=== PATIENT | male | born 1945 | race Caucasian/White ===

== ENCOUNTER 2017-02-08 10:48 | Emergency (ER) | payer MEDICARE, OTHER ==
[~2017-02-08] VITALS: Ht 188 cm; Wt 92.5 kg
[~2017-02-08 10:48] MED LIST: ASP325TEC PO; OMG1KC PO; PNT40TEC PO; SIMV20TA3 PO
--- NOTE | 2017-02-08 11:14 | ED Cough/URI ---
General Chief Complaint: Cough/Cold/Flu Symptoms Stated Complaint: CONGESTION,COUGH Source: patient, family (son) Exam Limitations: no limitations History of Present Illness Time seen by provider: 11:07 Initial Comments Patient presents to ER by private conveyance with a chief complaint that he has for the past 5 days been having a cough that is productive sometimes of phlegm as well as malaise, body aches, nasal congestion, headache and progressively getting worse feeling. He has not had a flu shot this year although he has had his pneumococcal shot. No significant sick contacts or travel outside the [facility]. He has been using Tylenol and NyQuil and DayQuil that helps only mildly with his cough. He had Tylenol this morning in his DayQuil capsule. Allergies and Home Medications Allergies Coded Allergies: Influenza Virus Vaccine (Verified Allergy, Unknown, 05/23/09) Uncoded Allergies: FLU SHOT (Allergy, Mild, 05/22/09) Home Medications Aspirin 325 Mg Tabec, 325 MG PO DAILY, (Reported) Pantoprazole Sod 40 Mg Tab, 40 MG PO DAILY, (Reported) Constitutional: chills, No diaphoresis, malaise EENTM: No ear discharge, No ear pain Respiratory: see HPI, cough, phlegm, No short of breath, No wheezing Cardiovascular: chest pain (when he coughs a lot), No palpitations, No syncope , No vascular heart diseas Gastrointestinal: No abdominal pain, No constipation, No diarrhea, No nausea Genitourinary: No discharge, No dysuria Skin: No pruritus, No rash Psychiatric/Neurological: Headache Past [id number]-Fufrgj-Fzdbfa Hx Patient Social History Alcohol Use: Denies Use Recreational Drug Use: No Type Used: Cigarettes (0.5) Recent Foreign Travel: No Contact w/Someone Who Travel: No Reproductive System Hx Reproductive Disorders: No Physical Exam Vital Signs Vital Sign - Last 12Hours 02/08/17 02/08/17 11:02 11:21 Temp 98.9 Pulse 87 B/P (MAP) 132/92 (105) Pulse Ox 94 O2 Delivery Room Air Capillary Refill : General Appearance: WD/WN, mild distress Eyes: Bilateral Eye Normal Inspection, Bilateral Eye PERRL, Bilateral Eye EOMI HEENT: PERRL/EOMI, normal ENT inspection, TMs normal, pharyngeal erythema, No tonsillar exudate Neck: non-tender, supple, normal inspection Respiratory: chest non-tender, no respiratory distress, no accessory muscle use , decreased breath sounds (left side more than right) Cardiovascular: normal peripheral pulses, regular rate, rhythm, no edema Gastrointestinal: non tender, soft Neurologic/Psychiatric: alert, oriented x 3 Skin: normal color, warm/dry Progress/Results/Core Measures Suspected Sepsis SIRS Temperature: Pulse: Respiratory Rate: Blood Pressure / Mean: Results/Orders Lab Results Laboratory Tests Test 02/08/17 11:12 Range/Units Group A Streptococcus Screen NEGATIVE NEGATIVE Micro Results Microbiology 02/08/17 Influenza Types A,B Antigen ([place]) - Final, Complete My Orders Orders - PATT RODRIGUEZ Rapid Strep A Screen (02/08/17 11:09) Influenza A And B Antigens (02/08/17 11:09) Chest Pa/Lat (2 View) (02/08/17 11:09) Albuterol/Ipra Inhalation Soln (Duoneb I (02/08/17 11:15) Svn Sm Volume Nebulizer Rt-Rfs (02/08/17 11:09) Ibuprofen Tablet (Motrin Tablet) (02/08/17 11:15) Medications Given in ED Current Medications Medications Dose Ordered Sig/Estefanía Route Start Time Stop Time Status Last Admin Dose Admin Albuterol/ Ipratropium 3 ml ONCE ONCE INH 02/08/17 11:15 02/08/17 11:16 DC 02/08/17 11:21 3 ML Ibuprofen 800 mg ONCE ONCE PO 02/08/17 11:15 02/08/17 11:16 DC 02/08/17 11:17 800 MG Vital Signs/I&O Vital Sign - Last 12Hours 02/08/17 02/08/17 11:02 11:21 Temp 98.9 Pulse 87 B/P (MAP) 132/92 (105) Pulse Ox 94 93 O2 Delivery Room Air Capillary Refill : Progress Note : Time: 11:40 Progress Note Lungs sounds are still clear after the breathing treatment however the patient says he felt like it broke him open and he feels much better. Flu be positive. Outside the window for Tamiflu being useful. Diagnostic Imaging Diagonstic Imaging: Xray Plain Films/CT/US/NM/MRI: chest (2v) Reviewed: Reviewed by Me Departure Impression Impression: Primary Impression: Influenza Disposition: 01 HOME, SELF-CARE Condition: Stable Departure-Patient Inst. Decision time for Depature: 11:47 Referrals: NO,LOCAL PHYSICIAN (PCP/Family) Primary Care Physician Patient Instructions: Flu, Adult (DC) Add. Discharge Instructions: Drink plenty of fluids and use vaporizers, vapor rubs, and humidifiers. Get some rest. If you're having fevers and you do wear a mask when in public or try and stay home so as not to spread the flu. Wash your hands and use hand dental hygiene administrative assistant. Use Tylenol 1000 g every 8 hours and/or ibuprofen 800 mg every 8 hours for the body aches, fevers, chills. If you're having coughing and cannot sleep you may take one half to one tablet of hydrocodone every 6 hours as needed to stop the cough. Hydrocodone can lead to constipation and drowsiness so be careful when using that. You may also citrus picker the prescription for cough syrup and follow instructions. If you're not improving by 3 weeks you should follow up with your primary care physician. All discharge instructions reviewed with patient and/or family. Voiced understanding. Scripts Guaifenesin/Codeine Phosphate (Codeine-Guaifen 10-100 mg/5 ml) 120 Ml Liquid 10 ML PO Q6H Y for COUGH, #120 ML 0 Refills Prov: PATT RODRIGUEZ 02/08/17 Work/School Note: Work Release Form Date Seen in the Emergency Department: Feb 08, 2017 Return to Work: Feb 17, 2017 Restrictions: Return-No Fever (24hrs) PATT RODRIGUEZ Feb 08, 2017 11:14
[2017-02-08] MEDS ORDERED: IBUPROFEN 800 MG (MOTRIN) TAB PO ONE (11:15)
[2017-02-08] MEDS ORDERED: RT-ALBUTEROL/IPRATROPIUM 3 ML (DUONEB) VIAL INH ONE (11:15)
--- NOTE | 2017-02-08 11:42 | Diagnostic Imaging Report ---
INDICATION: Cough and congestion. COMPARISON: 10/02/2010. FINDINGS: No dense consolidation to confirm pneumonia. No pleural effusion or pneumothorax. Normal heart size. Tortuous thoracic aorta is unchanged which accounts for the opacities over the spine in the retrocardiac position on the lateral radiograph. IMPRESSION: No acute cardiopulmonary process. Dictated by: Dictated on workstation # [id number]
[2017-02-08] MEDS ORDERED: GUAI120L56 PO (11:49)
[2017-02-08] MEDS ORDERED: RX-HYDROCODONE/APAP 5/325 MG #4 TAB PK PO PRN (12:00)
[2017-02-08 12:02] VITALS: BP 105/79
== END 2017-02-08 12:02 | disposition home or self-care (01) ==
LOC: EDUNIT# 10:48 → ER 10:52
DX: J11.1 Influenza due to unidentified influenza virus with other respiratory manifestations (principal); Z79.82 Long term (current) use of aspirin
CPT/HCPCS: 71020; 87430; 87804; 94640; 99283

== ENCOUNTER 2017-03-08 13:29 | Inpatient (IN) | payer MEDICARE, OTHER ==
[~2017-03-08] VITALS: Ht 188 cm; Wt 79.5 kg
[~2017-03-08 13:29] MED LIST changes: +GUAI120L56 PO
--- NOTE | 2017-03-08 16:21 | Physical Therapy Evaluation ---
PT Evaluation-General Medical Diagnosis Admission Date Mar 08, 2017 at 14:26 Medical Diagnosis: cva Onset Date: Mar 04, 2017 Therapy Diagnosis Therapy Diagnosis: weakness; abn gait Height/Weight Height (Feet): 6 Height (Inches): 2.00 Weight (Pounds): 195 Weight (Ounces): 0.0 Precautions Precautions/Isolations: Fall Prevention, Standard Precautions, Pressure Ulcer Weight Bear Status Right Lower Extremity: Right Full Weight Bearing Left Lower Extremity: Left Full Weight Bearing Referral Physician: Devonte Reason for Referral: Evaluation/Treatment Medical History Pertinent Medical History: DM, HTN Current History Acute CVA on 03/04/17; he did receive TPA. 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 Pain Numeric Pain Scale: 0-No Pain Location: No Pain Reported Objective Patient Orientation: Person, Place, Time, Situation Problem Solving: Good ROM/Strength ROM Lower Extremities Right LE WNL: left LE WNL PROM Strenght Lower Extremities Right LE strength is 5/5 throughout; left LE is flaccid at this time. Integumentary/Posture Integumentary Refer to nursing notes. Bowel Incontinence: No Bladder Incontinence: No Posture slight elevation left shoulder in sitting; able to correct with tactile cues Neuromuscular (Tone, Coordination, Reflexes) Right LE is WNL; L LE flaccid--unable to elicit patellar reflex or achilles Sensory Vision: Functional Hearing: Functional Hand Dominance: Right Sensation Right Lower Extremit: Intact Sensation Left Lower Extremity: Impaired Transfers Functional [place] Measure 0=Not Assessed/NA 4=Minimal Assistance 1=Total Assistance 5=Supervision or Setup 2=Maximal Assistance 6=Modified [place] 3=Moderate Assistance 7=Complete IndependenceIRFPAI Quality Coding Scale 6 Independent with activity with or without an assistive device 5 Patient requires set up or clean up by helper. Patient completes activity by themselves 4 Supervision or touching assist (CGA). [place] provide cues , steadying assist 3 The helper provides less than half the effort to complete the activity 2 The helper provides more than half the effort to complete the activity 1 Dependent. The helper does all the effort to complete an activity 7 Patient refused to complete or attempt activity 9 The patient did not perform the activity before the current illness or injury 88 Not attempted due to Medical conditions or safety concerns Transfers (B, C, W/C) (FIM): 2 Scootin Rollin Roll Left to Right (QC): 3 Supine to/from Sit: 3 (assist with B LE;s and trunk) Sit to/from Stand: 2 (mAX ASSIST ) bed t/f WC(FIM only if WC use): 2 Sit to Lying (QC): 2 Lying to Sitting/Side of Bed(Q: 2 Sit to Stand (QC): 2 Chair/Rvl-ab-Bosny Xfer(QC): 2 Car Transfer (QC): 88 (unsafe to attempt) Pt able to participate using right U/LE with transfers but needs max asssit to complete. Gait Does the Patient Walk?: No and Walking Goal IS indicated Mode of Locomotion: Both Anticipated Mode of Locomotion: Both Gait (FIM): 0 (unable at this time.) Distance (FIM): 0=does not occure Walk 10 feet (QC): 88 Walk 50 ft with 2 Turns(QC): 88 Walk 150 ft (QC): 88 Walking 10ft/uneven surface-QC: 88 Comments/Gait Description Unable to walk at this time. Wheelchair Training Does the Pt Use a Wheelchair?: Yes Wheelchair (FIM): 4 Wheelchair Distance (FIM): 3=150 ft Distance: 150 ft Wheelchair Level of Assist: 4 Wheel 50 ft with 2 turns (QC): 4 Wheel 150 ft (QC): 4 Type of Wheelchair: Manual Stairs Stairs (FIM): 0 (unable to attempt.) 1 Step (curb) (QC): 88 4 Steps (QC): 88 12 Steps (QC): 88 If not tested on admit;explain unable to ambulate; thus unable to attempt stairs. Balance Sitting Static: Fair Sitting Dynamic: Fair Picking up an Object (QC): 88 Treatment Co treat with OT to address functional transfers, PT working on the transfer whilst OT addressed UE management and AD management. Also worked on seated balance activities with PT addressing trunk stability, core activitation and balance while OT worked on UE use as well as management of the left UE. Pt up in chair post treatment with needs met. Assessment/Needs Pt presents post CVA with left side affected and the LE is flaccid at this time. He was indep and active at his PLOF. His functional mobility is significantly impaired as he requires max assist for transfers, bed mobility, is unable to walk. His seated balance is fair at this time. He has good potential to make functional gains and will benefit from skilled PT intervnetion to allow him to return home and care for himself. He is very motivated and cooperative with therapy. Rehab Potential: Good PT Short Term Goals Short Term Goals Time Frame: Mar 22, 2017 Transfers (B,C,W/C) (FIM): 4 Gait (FIM): 2 Distance (FIM): 1=up to 49 ft Gait Assistive Device: Walker Wale Wheelchair (FIM): 6 Wheelchair distance (FIM): 3=150 ft PT Full Time Babysitter Goals Mcc Goals PT Full Time Babysitter Goals Time Frame: Apr 05, 2017 Transfers (B,C,W/C) (FIM): 6 Sit to Lying (QC): 6 Lying-Sitting on Side/Bed(QC): 6 Sit to Stand (QC): 6 Roll Left to Right (QC): 6 Chair/Edi-me-Mmcve Xfer(QC): 6 Car Transfer (QC): 5 Does the Patient Walk: No and Walking Goal IS indicated Gait (FIM): 5 Gait distance (FIM): 3=150 ft Walk 10 feet (QC): 5 Walk 10ft-Uneven Surface(QC): 5 Walk 50ft with 2 Turns (QC): 5 Walk 150 ft (QC): 5 Gait Level of Assist: 5 Gait Assistive Device: Walker [place] Does the Pt use WC or Scooter?: Yes Wheelchair (FIM): 6 Wheelchair distance (FIM): 3=150 ft Wheel 50 feet with 2 turns (QC: 6 Stairs (FIM): 2 # of Steps: 4 1 Step (curb) (QC): 4 4 Steps (QC): 4 12 Steps (QC): 88 Picking up an Object (QC): 88 PT Plan Problem List Problem List: Activity Tolerance, Functional Strength, Safety, Balance, Gait, Transfer, Bed Mobility Treatment/Plan Treatment Plan: Continue Plan of Care Treatment Plan: Bed Mobility, Education, Functional Activity Curtis, Functional Strength, Group Therapy, Gait, Safety, Therapeutic Exercise, Transfers Treatment Duration: Apr 05, 2017 Frequency: At least 5 of 7 days/Wk (IRF) Estimated Hrs Per Day: 1.5 hours per day Patient and/or Family Agrees t: Yes Safety Risks/Education Patient Education: Transfer Techniques, Safety Issues Teaching Recipient: Patient Teaching Methods: Demonstration, Discussion Response to Teaching: Reinforcement Needed Discharge Recommendations Therapy D/C Recommendations: Physical Therapy Home Care Time/GCodes Time In: 1420 Time Out: 1435 (and 1445 to 1600) Total Billed Treatment Time: 90 Total Billed Treatment visit EVM 15 FA 60 WC 15 AARTI TARIQ PT Mar 08, 2017 16:21
--- NOTE | 2017-03-08 16:29 | ST Cognitive Linguistic Eval ---
Speech Evaluation-General Medical Diagnosis CVA Therapy Diagnosis Therapy Diagnosis: Cognitive Linguistic Skills WNL Precautions Precautions/Isolations: Fall Prevention, Standard Precautions, Pressure Ulcer Referral Referring Physician: Dr. Jaxson Whitney Reason for Referral: Evaluation/Treatment Cognitive Evaluation Speech PLF-Current Status Prior Level of Function The patient denied prior challenges with speech, language, or cognition. Subjective The patient was recently admitted to [facility] following a CVA. The patient greeted the clinician appropriately and was agreeable to participation in the cognitive evaluation. Language Eval: Auditory Comprehends Simple Yes/No Ques: Functional Indent/Objects Multiple Maier: Functional Ident/Pics in Multiple Maier: Functional Follows 1-Step Commands: Functional Follows Complex Directions: Functional Follows General Conversations: Functional Language Eval: Verbal Language Completes Spontaneous Greeting: Functional Produces Auto, Serial Info: Functional Imitates Simple Words/Phrases: Functional Word Finding: Functional Requests Basic Needs: Functional States Basic Personal Info: Functional Expresses Complex Ideas: Functional Cognitive Patient Orientation The patient was independently oriented to self, month, day of week, date, and year. Objective Cognitive Domain Attention: WNL Memory: WNL Problem Solving: Functional Objective Impression The patient demonstrated cognitive linguistic skills WNL and appropriate for completion of ADL's. Communication/Social Cognition Comprehension: 6 Expression: 6 Social Interaction: 6 Problem Solvin Memory: 6 Speech Patient Assess Expression of Ideas/Wants: Expression (4) Understanding [place] Content: Understands (4) Brief Interview-Mental Status: Yes Repetition of Three Words: Three (3) Temporal Orientation: Year: Correct (3) Temporal Orientation: Month: Accurate within 5 days(2) Temporal Orientation: Day: Correct (1) Recall : Wear to say "Sock": Yes, no cue required (2) Recall : Color: Yes, no cue required (2) Recall : Bed: Yes, no cue required (2) Speech-Plan Treatment Plan Speech Therapy Treatment Plan: Discontinue ST Evaluation, only. Frequency: Modified Program (IRF) Estimated Hrs Per Day: Other Rehab Potential: Good Safety Risks/Education Teaching Recipient: Patient Teaching Methods: Discussion Response to Teaching: Verbalize Understanding Education Topics Provided: Results, Recommendations, Plan of Care Time Speech Therapy Time In: 16:07 Speech Therapy Time Out: 16:22 Total Billed Time: 15 Billed Treatment Time 1, BETTINA CASTILLO Mar 08, 2017 16:29
--- NOTE | 2017-03-08 17:24 | Occupational Therapy Eval ---
OT Evaluation-General/PLF Medical Diagnosis Admission Date Mar 08, 2017 at 14:26 Medical Diagnosis: cva Onset Date: Mar 04, 2017 Therapy Diagnosis Therapy Diagnosis: decr self care, decr funct use L Ue, decr funct mob, decr sensation Height/Weight Height (Feet): 6 Height (Inches): 2.00 Weight (Pounds): 195 Weight (Ounces): 0.0 Precautions Precautions/Isolations: Fall Prevention, Standard Precautions, Pressure Ulcer Referral Physician: Devonte Referral Reason: Evaluation/Treatment Medical History Pertinent Medical History: CAD, DM, GERD, HTN, Smoking Additional Medical History AAA without surgery. BPH. Current History Acute CVA on 03/04/17; he did receive TPA. Social History Home: Single Level (modular home) Current Living Status: Children (his adult son lives with him.) Entry Into Home: Stairs With Railing Steps Into Home: 3 ADL-Prior Level of Function ADL PLOF Comments Pt reported that he was able to manage all of his basic ALD needs prior to event. 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 pt reported pain 0/10 Appearance Alert, cooperative Mental Status/Objective Patient Orientation: Person, Place, Time, Situation Current Glasses/Contacts: Yes Hearing Aids: No Dentures/Partials: No Hand Dominance: Right Upper Extremity ROM R UE grossly WFL. L UE PROM WFL. Active finger flex and extension observed as well as wrist flexion. trace wrist ext, elbow flex and extension Upper Extremity Coordination Impaired L UE Upper Extremity Sensation Impaired L UE Upper Extremity Strength R UE 4+/5 grossly. L UE trace throughout and 2/5 in fingers and wrist flexion Pt reported no visual problems and did not demonstrate any visual neglect or visual field loss ADL-Treatment Functional [place] Measure 0=Not Assessed/NA 4=Minimal Assistance 1=Total Assistance 5=Supervision or Setup 2=Maximal Assistance 6=Modified [place] 3=Moderate Assistance 7=Complete IndependenceIRFPAI Quality Coding Scale 6 Independent with activity with or without an assistive device 5 Patient requires set up or clean up by helper. Patient completes activity by themselves 4 Supervision or touching assist (CGA). [place] provide cues , steadying assist 3 The helper provides less than half the effort to complete the activity 2 The helper provides more than half the effort to complete the activity 1 Dependent. The helper does all the effort to complete an activity 7 Patient refused to complete or attempt activity 9 The patient did not perform the activity before the current illness or injury 88 Not attempted due to Medical conditions or safety concerns Other Treatments Pt was co-treated with PT due to the need for skilled clinicians to address different body parts and functions, with OT addressing weight bearing and positioning L UE and PT addressing transfers and balance. pt was provided with lap tray for L side of w/c to support arm and to prevent subluxation. He was also given a sling to wear during transfers to support L shoulder. Skilled facilitation techniques and activities were used to encourage L elbow extension to help with righting when he leaned to the Left and weight bearing to facilitate muscle function. Pt retuned to room, left up in w/c, all needs met. son in room. Orientation to rehab process and pt anticipating ADLs in am. Education OT Patient Education: Progress toward Goal/Update tx plan, Purpose of tx/ functional activities, Transfer techniques Teaching Recipient: Patient, Family Teaching Methods: Discussion Response to Teaching: Verbalize Understanding OT Short Term Goals Short Term Goals Time Frame: Mar 22, 2017 Grooming(FIM): 5 Bathing(FIM): 4 Toileting(FIM): 3 Toilet/Commode Transfer(FIM): 4 Additional Short Term Goals: 2-Verbalize Understanding, 3-ImproveStrength/Curtis 1=Demonstrate adherence to instructed precautions during ADL tasks. 2=Patient will verbalize/demonstrate understanding of assistive devices/ modifications for ADL. 3=Patient will improve strength/tolerance for activity to enable patient to perform ADL's. OT Tim[place] Hewer Goals Tim[place] Goals Time Frame: Apr 05, 2017 Eating (FIM): 6 Eating (QC): 6 Groomin Oral Hygiene (QC): 6 Bathing(FIM): 5 Shower/Bathe Self (QC): 5 Upper Body Dressing(FIM): 6 Upper Body Dressing (QC): 6 Lower Body Dressing(FIM): 5 Lower Body Dressing (QC): 5 On/Off Footwear (QC): 5 Toileting(FIM): 5 Toileting Hygiene (QC): 5 Toilet/Commode Transfer(FIM): 5 Toilet/Commode Transfer (QC): 5 Shower Transfer(FIM): 5 Additional Goals: 2-Verbalize Understanding, 3-ImproveStrength/Curtis 1=Demonstrate adherence to instructed precautions during ADL tasks. 2=Patient will verbalize/demonstrate understanding of assistive devices/ modifications for ADL. 3=Patient will improve strength/tolerance for activity to enable patient to perform ADL's. OT Education/Plan Problem List/Assessment Assessment: Decreased Activ Tolerance, Decreased UE Strength, Dependent Transfers, Impaired Coordination, Impaired Funct Balance, Impaired Self-Care Skills, Restricted Funct UE ROM Pt would benefit from skilled OT to increase his independence in basic self care and to decrease caregiver burden. Discharge Recommendations Plan/Recommendations: Continue POC Treatment Plan/Plan of Care Treatment,Training & Education: Yes Patient would benefit from OT for education, treatment and training to promote independence in ADL's, mobility, safety and/or upper extremity function for ADL' s. Plan of Care: ADL Retraining, Functional Mobility, Group Exercise/Act as Ind ( educaiton, exercise, activity tolerance, functional acitivites, socialization), UE Funct Exercise/Act, UE Neuromus Re-Ed/Coord, W/C Management Training Treatment Duration: Apr 05, 2017 Frequency: At least 5 of 7 days/Wk (IRF) Estimated Hrs Per Day: 1.5 hours per day Agreement: Yes Rehab Potential: Good Time/GCodes Start Time: 14:35 Stop Time: 16:00 Total Time Billed (hr/min): 85 Billed Treatment Time visit, OT evaluation high intensity 1435 to 1445, functional activities 75 minutes from 1445 to 1600 (co-tx with PT) ROSY CHAVES OT Mar 08, 2017 17:24
[2017-03-08] MEDS: metFORMIN 500 MG (GLUCOPHAGE) TAB PO SCH (17:39)
[2017-03-08 18:36] VITALS: BP 113/76
--- NOTE | 2017-03-08 19:56 | PM&R Post Admission Assessment ---
Post Admission Physician Asses The preadmission screen agrees with the post admission assessment that the patient is a good candidate for inpatient rehabilitation. The patient will have a comprehensive program of inpatient rehabilitation with a goal of maximizing level of functional independence prior to discharge home with his son. The patient will have PT/OT ninety minutes per day, each discipline, five days a week for gait, strengthening, conditioning, balance, ADLs, any patient/family/caregiver training as necessary. Speech therapy to do cognitive assessment and treat as indicated. Rehabilitation nursing to assist with bowel, bladder, skin, wound care, medication administration, pain management. Pneumatic System Conveyor Operator to assist with discharge planning, community reentry. SCD's for DVT prophylaxis. He appears to be well motivated to participate in three hours of therapy a day. He should be able to tolerate three hours of therapy a day from a medical standpoint. He should benefit from the three hours of therapy a day. He has a reasonable discharge plan, reasonable discharge rehabilitation goals and a supportive family. He has various comorbidities that need to be closely monitored with medications and treatments adjusted on a daily basis as needed. These include: DM HTN Tobaccoism Barriers to discharge for this patient who had been independent prior to this are for him to be modified independent to supervision for ADLs and mobility skills prior to discharge home with his son, so as to lessen the burden of the caregivers. He had been Independent prior to this Risks for this patient include: 1. Fall 2. Fracture 3. DVT 4. Pulmonary embolism 5. Poorly controlled HTN 6. Skin breakdown 7. Contractures 8. Poorly controlled pain 9. Urinary retention 10. UTI 11. Respiratory infection 12. Aspiration 13. Poorly controlled DM Estimated Length of Stay: 21 days Prognosis: Rehab prognosis appears good for goal of discharge home with his son with [facility] modified independent to supervision for ADLs and mobility skills. NNEKA MARTIN MD Mar 08, 2017 19:56
[2017-03-08] MEDS: ATORVASTATIN 40 MG (LIPITOR) TABLET PO SCH (20:50)
--- NOTE | 2017-03-09 00:09 | HISTORY AND PHYSICAL ---
DATE OF SERVICE: CHIEF COMPLAINT: Difficulty with walking. HISTORY OF PRESENT ILLNESS: This patient is a 72-year-old male who was admitted to [facility] on 03/05/2017 for left-sided weakness. The patient was transferred from [facility] where he received TPA. CT was negative for bleed. MRI of the brain was remarkable for right basal ganglia stroke. The patient was started on Plavix. MRA with carotid ultrasound was negative for significant stenosis. Echocardiogram did not show PFO and had normal ejection fraction. The patient had multiple risk factors such as hypertension, hyperlipidemia and tobacco abuse. He was encouraged to quit smoking. He was left with a left hemiparesis. He was switched from aspirin to Plavix. He is referred to inpatient rehabilitation unit at [facility] for ongoing care. He lives with his son in [place], [place]. He goes to the [facility] in [place]. He does not regularly check his Accu-Cheks at home, but goes to clinic for that. He had been independent prior to this. Currently, he is not ambulatory. He is max assist for transfers. He is right hand dominant. He is set up for eating and grooming, mod assist for upper body dressing, max assist for lower body dressing and toilet transfers. Cognitively he is grossly intact. Speech therapy has assessed him and signed off. PAST MEDICAL HISTORY: Type 2 diabetes mellitus, essential hypertension, hyperlipidemia, tobacco abuse, GERD without esophagitis, abdominal aortic aneurysm without rupture. PAST SURGICAL HISTORY: Noncontributory. ALLERGIES: FLU SHOT, INFLUENZA, VIRUS VACCINE. FAMILY HISTORY: Noncontributory. SOCIAL HISTORY: He is from [place]. He is a [place] vet. 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 He is a . REVIEW OF SYSTEMS: Ten-point review of systems significant for left-sided weakness. MEDICATIONS: Lisinopril 10 mg p.o. every day, Plavix 75 mg p.o. every day, glimepiride 2 mg p.o. daily, Lipitor 80 mg p.o. at bedtime, Glucophage 1000 mg p.o. b.i.d. PHYSICAL EXAMINATION: GENERAL: Significant for a male appearing stated age, lying in bed, no acute distress. VITAL SIGNS: He is afebrile, pulse is 80, respirations 17, blood pressure 113/76, O2 sat 97% on room air. Accu-Chek is 124 this evening. HEENT: Vision, speech, hearing grossly intact. No oral lesion is noted. NECK: Supple without mass. HEART: Regular rhythm. LUNGS: Clear. ABDOMEN: Soft, nontender. Bowel sounds present. EXTREMITIES: No lower leg edema, no calf tenderness. MUSCULOSKELETAL: The patient has functional passive range of motion in all 4 extremities. NEUROLOGIC: Cognition grossly intact. Sensation grossly intact to touch. Right lower extremity strength is 5/5. Left lower extremity is flaccid. Sensation to light touch is impaired in left leg. Coordination is impaired in the left upper extremity and sensation is impaired in the left upper extremity. Sensation is grossly intact to touch on the right. Strength right upper limb is 4+/5, left upper extremity trace throughout and 2/5 in fingers and wrist flexion. The patient reports no visual problems and did not demonstrate any visual neglect or visual field loss. ASSESSMENT: 1. 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 2. Type 2 diabetes mellitus. 3. Essential hypertension. 4. Hyperlipidemia. 5. Tobaccoism, currently abstaining. 6. Gastroesophageal reflux disease without esophagitis 7. Abdominal aortic aneurysm without rupture. PLAN: The patient is admitted to inpatient rehabilitation unit for a comprehensive program of inpatient stroke rehabilitation with goal of maximizing level of functional independence prior to discharge home with his son. The patient will have PT, OT 90 minutes per day each discipline 5 days a week for 3 weeks for gait, strengthening, conditioning, balance, ADLs, any patient family caregiver training necessary, any definite equipment training necessary. Speech therapy has assessed and signed off. Rehabilitation nursing to assist with bowel, bladder, skin care, medication administration, pain management. Social service to assist with discharge planning, community reentry. Continue current medications, therapy with cardiac and fall precautions. Monitor Accu-Cheks and adjust medications as needed. Consult Dr. Sommer regarding assistance with any medical issues that may arise. emergency medical services coordinator assist with discharge planning, community reentry. Estimated length of stay 21 days. PROGNOSIS: Rehab prognosis appears good for goal enhancing level of functional dependence prior to discharge home with his son, hopefully at modified independent to supervision level for ADLs and mobility skills. DIET: Carb consistent. CODE STATUS: Full code. Job ID: [id number] DocumentID: [id number] Dictated Date: 03/08/2017 20:48:10 Director Of Accounting Date: 03/09/2017 00:08:25 Dictated By: NNEKA MARTIN MD
[2017-03-09 05:07] VITALS: BP 111/72
[2017-03-09 06:10] LABS: HEMOGLOBIN 15.5 G/DL (13.3-17.7); MEAN PLATELET VOLUME 10.2 FL (7.4-10.4); RED BLOOD COUNT 5.08 10^6/uL (4.35-5.85); RED CELL DISTRIBUTION WIDTH 13.9 % (10.0-14.5); WHITE BLOOD COUNT 7.8 10^3/uL (4.3-11.0)
[2017-03-09] MEDS: metFORMIN 500 MG (GLUCOPHAGE) TAB PO SCH ×2 (06:26→17:30)
[2017-03-09] MEDS: GLIMEPIRIDE 2 MG (AMARYL) TAB PO SCH (06:26)
[2017-03-09 06:29] LABS: ALANINE AMINOTRANSFERASE 19 U/L (0-55); ALBUMIN 3.9 GM/DL (3.2-4.5); ALKALINE PHOSPHATASE 99 U/L (40-136); BILIRUBIN,TOTAL 0.9 MG/DL (0.1-1.0); BUN/CREATININE RATIO 33; CALCIUM 9.1 MG/DL (8.5-10.1); CARBON DIOXIDE 21 MMOL/L (21-32); CHLORIDE 105 MMOL/L (98-107); CREATININE SERUM 0.82 MG/DL (0.60-1.30); GFR ESTIMATED > 60; GLUCOSE 133 MG/DL (70-105); POTASSIUM 4.7 MMOL/L (3.6-5.0); SODIUM 137 MMOL/L (135-145)
--- NOTE | 2017-03-09 08:46 | PM & R (SOAP) Progress Note ---
Subjective Time Seen by Provider: 08:00 Subjective/Events-last exam Patient was seen in his room this AM Adjusting well to unit Met one of patients jonah Dorsey assist for transfers Current Labs noted Discussed with RN Greg stable will decrease Accuheks to BID See orders. Review of Systems Neurological: Weakness Objective Exam Last Set of Vital Signs Vital Signs Date Time Temp Pulse Resp B/P (MAP) Pulse Ox O2 Delivery O2 Flow Rate FiO2 03/09/17 05:07 97.1 68 16 111/72 (85) 97 Room Air Capillary Refill : I&O Intake and Output 03/09/17 00:00 Intake Total 500 ml Balance 500 ml Intake Oral 500 ml Daily Weight Change No General: Alert, Oriented X3, Cooperative, No Acute Distress HEENT: Atraumatic, PERRLA, EOMI, Mucous Memb Moist/Gas Neck: Supple, No JVD Lungs: Clear to Auscultation Heart: Regular Rate Abdomen: Normal Bowel Sounds, Soft, No Tenderness Extremities: No Edema Neuro: Other (Left LE flaccid with trace return LUE) Psych/Mental Status: Mental Status NL Results Lab Laboratory Tests 03/08/17 20:17: Glucometer 124H 03/09/17 04:19: Glucometer 127H 03/09/17 06:05: White Blood Count 7.8, Red Blood Count 5.08, Hemoglobin 15.5, Hematocrit 44, Mean Corpuscular Volume 87, Mean Corpuscular Hemoglobin 31, Mean Corpuscular Hemoglobin Concent 35, Red Cell Distribution Width 13.9, Platelet Count 193, Mean Platelet Volume 10.2, Sodium Level 137, Potassium Level 4.7, Chloride Level 105, Carbon Dioxide Level 21, Anion Gap 11, Blood Urea Nitrogen 27H, Creatinine 0.82, Estimat Glomerular Filtration Rate > 60, BUN/Creatinine Ratio 33, Glucose Level 133H, Calcium Level 9.1, Total Bilirubin 0.9, Aspartate Amino Transf (AST/SGOT) 21, Alanine Aminotransferase (ALT/SGPT) 19, Alkaline Phosphatase 99, Total Protein 7.0, Albumin 3.9 Assessment/Plan Assessment Rt MCA CVA with Left HP HTN controlled DM2 controlled Tobacco abuse declines Patch 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 GERD without espohagitis AAA without rupture Plan Continue PT/OT ST has assessed and signed off Decrease Accucheks as per above Team Conference tomorrow 03-11-17 NNEKA MARTIN MD Mar 09, 2017 08:46
[2017-03-09] MEDS: CLOPIDOGREL 75 MG (PLAVIX) TABLET PO SCH (08:53)
[2017-03-09] MEDS: lisINopril 10 MG (PRINIVIL) TABLET PO SCH (08:53)
--- NOTE | 2017-03-09 09:01 | Consultation ---
History of Present Illness History of Present Illness Patient Consulted On(saeed/time) 03/09/17 08:58 Time Seen by Provider: 09:00 History of Present Illness left sided weakness. Right basal ganglia stroke. History of hypertension, hyperlipidemia, tobacco usage. History of abdominal aortic aneurysm and GERD. Patient had a stroke Allergies and Home Medications Allergies Coded Allergies: Influenza Virus Vaccines (Verified Allergy, Unknown, 05/23/09) Uncoded Allergies: FLU SHOT (Allergy, Mild, 05/22/09) Home Medications Aspirin 325 Mg Tabec, 325 MG PO DAILY, (Reported) Guaifenesin/Codeine Phosphate 120 Ml Liquid, 10 ML PO Q6H PRN for COUGH, #120 Ref 0 Prescribed by: PATT RODRIGUEZ on 02/08/17 1149 Pantoprazole Sod 40 Mg Tab, 40 MG PO DAILY, (Reported) Past Yenvzar-Mtlwua-Aorzqo Hx Patient Social History Alcohol Use: Denies Use Recreational Drug Use: No Smoking Status: Current Everyday Smoker Type Used: Cigarettes Former Smoker, Quit: Mar 04, 2017 Recent Foreign Travel: No Contact w/Someone Who Travel: No Recent Infectious Disease Expo: No Recent Hopitalizations: Yes (VEIN STRIPPING HEMORRHOIDS) Immunizations Up To Date PED Vaccines UTD: Yes Date of Pneumonia Vaccine: Apr 05, 2016 Seasonal Allergies Seasonal Allergies: No Surgeries History of Surgeries: Yes ( HEMORRHOIDS) Respiratory History of Respiratory Disorde: No Cardiovascular History of Cardiac Disorders: Yes (-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) Neurological History of Neurological Disord: Yes Reproductive System Hx Reproductive Disorders: No Genitourinary History of Genitourinary Disor: No Gastrointestinal History of Gastrointestinal Di: Yes Gastrointestinal Disorders: Gastroesophageal Reflux, Hemorrhoids Musculoskeletal History of Musculoskeletal Dis: Yes (indicates cervical narrowing) Endocrine History of Endocrine Disorders: Yes Endocrine Disorders: Diabetes, Non-Insulin dep Are Your Blood Sugars Over 250: No HEENT History of HEENT Disorders: Yes (blurred vision-has hearingaides-does not wear) Loss of Vision: Bilateral Hearing Impairment: Hard of Hearing Cancer History of Cancer: No Psychosocial History of Psychiatric Problem: No Integumentary History of Skin or Integumenta: No Blood Transfusions History of Blood Disorders: No Review of Systems-General Constitutional: weakness, other (left-sided weakness) EENTM: no symptoms reported Respiratory: no symptoms reported Cardiovascular: no symptoms reported Gastrointestinal: no symptoms reported Genitourinary: no symptoms reported Physical Exam-General Problems Physical Exam Vital Signs Vital Sign - Last 12Hours 03/08/17 03/08/17 14:35 18:36 Temp 97.4 Pulse 80 Resp 17 B/P (MAP) 113/76 (88) Pulse Ox 97 O2 Delivery Room Air Capillary Refill : General Appearance: WD/WN, no apparent distress Eyes: Bilateral Eye Normal Inspection HEENT: normal ENT inspection Neck: full range of motion Respiratory: chest non-tender, lungs clear, normal breath sounds, no respiratory distress, no accessory muscle use Cardiovascular: regular rate, rhythm, no murmur Gastrointestinal: non tender, soft Assessment/Plan Assessment/Plan Admission Diagnosis/Plan CVA on left. Hypertension. Hyperlipidemia. Tobacco usage. Abdominal aortic aneurysm. GERD Clinical Quality Measures DVT/VTE Risk/Contraindication: Risk Factor Score Per Nursin RFS Level Per Nursing on Admit: 4+=Very High JAIME ROBERSON DO Mar 09, 2017 09:01
--- NOTE | 2017-03-09 10:18 | Occupational Ther Daily Note ---
OT Current Status-Daily Note Subjective Pt alert, lying in bed. Son present in room. Pt agreed to therapy. No c/o pain. Mental Status/Objective Patient Orientation: Person, Place, Time, Situation Functional [place] Measure 0=Not Assessed/NA 4=Minimal Assistance 1=Total Assistance 5=Supervision or Setup 2=Maximal Assistance 6=Modified [place] 3=Moderate Assistance 7=Complete [place] ADL-Treatment Co-treat with PT due to the need for skilled clinicians,OT addressed ADLs and L UE exercises and PT addressing transfers, L LE exercises and balance. Pt went from supine to sitting EOB with max A x2. CGA with sitting EOB. Max A for stand pivot transfer from EOB to rolling shower chair. Pt was transported from room to large shower room in shower chair. Pt was able to pull to stand using grabbar and assist x2 for safety to hike pants over hips. Max A to don/doff socks and pants. Pt was able to doff shirt by self. Max A to don. Pt educated on one handed technique for dressing upper/lower body. Pt able to cleanse and dry all parts except lower legs and buttocks. Functional [place] Measure 0=Not Assessed/NA 4=Minimal Assistance 1=Total Assistance 5=Supervision or Setup 2=Maximal Assistance 6=Modified [place] 3=Moderate Assistance 7=Complete IndependenceIRFPAI Quality Coding Scale 6 Independent with activity with or without an assistive device 5 Patient requires set up or clean up by helper. Patient completes activity by themselves 4 Supervision or touching assist (CGA). [place] provide cues , steadying assist 3 The helper provides less than half the effort to complete the activity 2 The helper provides more than half the effort to complete the activity 1 Dependent. The helper does all the effort to complete an activity 7 Patient refused to complete or attempt activity 9 The patient did not perform the activity before the current illness or injury 88 Not attempted due to Medical conditions or safety concerns Bathing (FIM): 3 Bathing Location: L Arm (assist to lift), L Upper Leg, R Upper Leg, Chest, Abdomen, Perineal Area Shower/Bathe Self (QC): 3 Upper Body (FIM): 2 Upper Body Dressing (QC): 2 Lower Body Dressing (FIM): 1 Lower Body Dressing (QC): 1 On/Off Footwear (QC): 1 Shower Transfer(FIM): 1 Other Treatment Pt transported to therapy gym. Pt complete LE exercises with PT and UE exercises with OT. Pt demonstrated trace movements in shldr elevation and bicep flexion. Active movement (slight) with wrist flex/ext, pronation and finger flexion/extension. Pt then demonstrated ability to maneuver w/c with minimal verbal direction. After therapy, pt sitting in room. Son present in room. Call light/phone in reach. All needs met in room. OT Short Term Goals Short Term Goals Time Frame: Mar 22, 2017 Grooming(FIM): 5 Bathing(FIM): 4 Toileting(FIM): 3 Toilet/Commode Transfer(FIM): 4 Additional Short Term Goals: 2-Verbalize Understanding, 3-ImproveStrength/Curtis 1=Demonstrate adherence to instructed precautions during ADL tasks. 2=Patient will verbalize/demonstrate understanding of assistive devices/ modifications for ADL. 3=Patient will improve strength/tolerance for activity to enable patient to perform ADL's. OT Diagnostic Radiologist Goals Penitentiary Goals Time Frame: Apr 05, 2017 Eating (FIM): 6 Eating (QC): 6 Groomin Oral Hygiene (QC): 6 Bathing(FIM): 5 Shower/Bathe Self (QC): 5 Upper Body Dressing(FIM): 6 Upper Body Dressing (QC): 6 Lower Body Dressing(FIM): 5 Lower Body Dressing (QC): 5 On/Off Footwear (QC): 5 Toileting(FIM): 5 Toileting Hygiene (QC): 5 Toilet/Commode Transfer(FIM): 5 Toilet/Commode Transfer (QC): 5 Shower Transfer(FIM): 5 Additional Goals: 2-Verbalize Understanding, 3-ImproveStrength/Curtis 1=Demonstrate adherence to instructed precautions during ADL tasks. 2=Patient will verbalize/demonstrate understanding of assistive devices/ modifications for ADL. 3=Patient will improve strength/tolerance for activity to enable patient to perform ADL's. OT Education/Plan Problem List/Assessment Pt would benefit from skilled OT to increase his independence in basic self care and to decrease caregiver burden. Discharge Recommendations Plan/Recommendations: Continue POC Treatment Plan/Plan of Care Patient would benefit from OT for education, treatment and training to promote independence in ADL's, mobility, safety and/or upper extremity function for ADL' s. Plan of Care: ADL Retraining, Functional Mobility, Group Exercise/Act as Ind ( educaiton, exercise, activity tolerance, functional acitivites, socialization), UE Funct Exercise/Act, UE Neuromus Re-Ed/Coord, W/C Management Training Treatment Duration: Apr 05, 2017 Frequency: At least 5 of 7 days/Wk (IRF) Estimated Hrs Per Day: 1.5 hours per day Agreement: Yes Rehab Potential: Good Time/GCodes Start Time: 09:00 Stop Time: 10:00 Total Time Billed (hr/min): 60 Billed Treatment Time 1 visit-ADL 3 (40 min) EX 1 (20 min) co-treat [id number] (60 min) AARTI STARR Mar 09, 2017 10:18
--- NOTE | 2017-03-09 11:00 | Physical Therapy Daily Note ---
PT Daily Note-Current Subjective Pt sitting up in bed upon arrival visiting with son. Pt agrees to PT and OT co- treat. Mental Status Patient Orientation: Person, Place, Time, Situation Transfers Functional [place] Measure 0=Not Assessed/NA 4=Minimal Assistance 1=Total Assistance 5=Supervision or Setup 2=Maximal Assistance 6=Modified [place] 3=Moderate Assistance 7=Complete IndependenceIRFPAI Quality Coding Scale 6 Independent with activity with or without an assistive device 5 Patient requires set up or clean up by helper. Patient completes activity by themselves 4 Supervision or touching assist (CGA). [place] provide cues , steadying assist 3 The helper provides less than half the effort to complete the activity 2 The helper provides more than half the effort to complete the activity 1 Dependent. The helper does all the effort to complete an activity 7 Patient refused to complete or attempt activity 9 The patient did not perform the activity before the current illness or injury 88 Not attempted due to Medical conditions or safety concerns Scootin Supine to/from Sit: 2 Sit to/from Stand: 2 Sit to Lying (QC): 2 Sit to Stand (QC): 2 Chair/Csc-gl-Aarjs Xfer(QC): 2 Bed to/from Chair: 2 Weight Bearing Right Lower Extremity: Right Full Weight Bearing Left Lower Extremity: Left Full Weight Bearing Wheelchair Training Does the Pt Use a Wheelchair?: Yes Wheelchair Distance: 3=150 ft Distance: 200' Wheelchair Level of Assist: 2 Wheel 50 ft with 2 turns (QC): 2 Wheel 150 ft (QC): 3 Type of Wheelchair: Manual Exercises Seated Therapy Exercises: Ankle pumps, Long arc quads, Hip flexion, Kicking activity Treatments PT co-treated with OT to assist with ADLs and bathing. PT worked on balance, transfers, sequencing & hand/foot placement while OT worked on ADLs and showering & dressing. PT completed sit to stands from [facility] & shower chair at Max A, leaning slightly to L during sit to stands. PT propels [facility] to Therapy Gym to complete both UE & LE Seated Ex in [facility]. Pt needs assistance with LLE due to weakness. Pt returns to room to rest in [facility] at end of tx with all needs met. Assessment Current Status: Good Progress Pt is improving with strength and balance since yesterday. PT Short Term Goals Short Term Goals Time Frame: Mar 22, 2017 Gait (FIM): 2 Distance (FIM): 1=up to 49 ft Gait Assistive Device: [place] Wheelchair (FIM): 6 Wheelchair distance (FIM): 3=150 ft Wheelchair Distance: 150 ft PT Telemarketing Manager Goals Telemarketing Manager Goals PT Correction Goals Time Frame: Apr 05, 2017 Transfers (B,C,W/C) (FIM): 6 Sit to Lying (QC): 6 Lying-Sitting on Side/Bed(QC): 6 Sit to Stand (QC): 6 Rollin Roll Left to Right (QC): 6 Chair/Aej-ph-Uzzmz Xfer(QC): 6 Car Transfer (QC): 5 Does the Patient Walk: No and Walking Goal IS indicated Gait (FIM): 5 Gait distance (FIM): 3=150 ft Walk 10 feet (QC): 5 Walk 10ft-Uneven Surface(QC): 5 Walk 50ft with 2 Turns (QC): 5 Walk 150 ft (QC): 5 Gait Level of Assist: 5 Gait Assistive Device: [place] Does the Pt use WC or Scooter?: Yes Wheelchair (FIM): 6 Wheelchair distance (FIM): 3=150 ft Wheel 50 feet with 2 turns (QC: 6 Stairs (FIM): 2 # of Steps: 4 1 Step (curb) (QC): 4 4 Steps (QC): 4 12 Steps (QC): 88 Picking up an Object (QC): 88 PT Plan Problem List Problem List: Activity Tolerance, Functional Strength, Safety, Balance, Gait, Transfer, Bed Mobility Treatment/Plan Treatment Plan: Continue Plan of Care Treatment Plan: Bed Mobility, Education, Functional Activity [place], Functional Strength, Group Therapy, Gait, Safety, Therapeutic Exercise, Transfers Treatment Duration: Apr 05, 2017 Frequency: At least 5 of 7 days/Wk (IRF) Estimated Hrs Per Day: 1.5 hours per day Patient and/or Family Agrees t: Yes Safety Risks/Education Patient Education: Transfer Techniques, Correct Positioning, Safety Issues Teaching Recipient: Patient Teaching Methods: Discussion Response to Teaching: Verbalize Understanding Time/GCodes Time In: 900 Time Out: 1000 Total Billed Treatment 1, FA x2 (30m) & EX x2 (30m) Co-treat w/OT 60m (9-10) LIT TANNER PTA Mar 09, 2017 11:00
[2017-03-09] MEDS ORDERED: NICO-587 TD (11:25)
[2017-03-09] MEDS ORDERED: GLIM2TAB PO (11:25)
[2017-03-09] MEDS ORDERED: SIMV5TAB6 PO (11:25)
[2017-03-09] MEDS ORDERED: METF1000 PO (11:25)
[2017-03-09] MEDS ORDERED: ASPI325T32 PO (11:25)
[2017-03-09] MEDS ORDERED: LISI10TA2 PO (11:25)
--- NOTE | 2017-03-09 13:32 | Occupational Ther Daily Note ---
OT Current Status-Daily Note Subjective Pt alert, sitting in recliner. Pt agreed to therapy. No c/o pain. Mental Status/Objective Patient Orientation: Person, Place, Time, Situation Functional [place] Measure 0=Not Assessed/NA 4=Minimal Assistance 1=Total Assistance 5=Supervision or Setup 2=Maximal Assistance 6=Modified [place] 3=Moderate Assistance 7=Complete [place] ADL-Treatment Functional [place] Measure 0=Not Assessed/NA 4=Minimal Assistance 1=Total Assistance 5=Supervision or Setup 2=Maximal Assistance 6=Modified [place] 3=Moderate Assistance 7=Complete IndependenceIRFPAI Quality Coding Scale 6 Independent with activity with or without an assistive device 5 Patient requires set up or clean up by helper. Patient completes activity by themselves 4 Supervision or touching assist (CGA). [place] provide cues , steadying assist 3 The helper provides less than half the effort to complete the activity 2 The helper provides more than half the effort to complete the activity 1 Dependent. The helper does all the effort to complete an activity 7 Patient refused to complete or attempt activity 9 The patient did not perform the activity before the current illness or injury 88 Not attempted due to Medical conditions or safety concerns Other Treatment Pt was transported via w/c to therapy gym. Pt completed L UE exercises without resistance. Pt uses compensatory techniques to extend L UE. Pt then maneuvered w/c throughout ARU area with min verbal cues. After therapy, pt sitting in w/c in room. Visitors present. Call light/phone in reach. All needs met in room. OT Short Term Goals Short Term Goals Time Frame: Mar 22, 2017 Grooming(FIM): 5 Bathing(FIM): 4 Toileting(FIM): 3 Toilet/Commode Transfer(FIM): 4 Additional Short Term Goals: 2-Verbalize Understanding, 3-ImproveStrength/Curtis 1=Demonstrate adherence to instructed precautions during ADL tasks. 2=Patient will verbalize/demonstrate understanding of assistive devices/ modifications for ADL. 3=Patient will improve strength/tolerance for activity to enable patient to perform ADL's. OT Longterm Goals Stallion Keeper Goals Time Frame: Apr 05, 2017 Eating (FIM): 6 Eating (QC): 6 Groomin Oral Hygiene (QC): 6 Bathing(FIM): 5 Shower/Bathe Self (QC): 5 Upper Body Dressing(FIM): 6 Upper Body Dressing (QC): 6 Lower Body Dressing(FIM): 5 Lower Body Dressing (QC): 5 On/Off Footwear (QC): 5 Toileting(FIM): 5 Toileting Hygiene (QC): 5 Toilet/Commode Transfer(FIM): 5 Toilet/Commode Transfer (QC): 5 Shower Transfer(FIM): 5 Additional Goals: 2-Verbalize Understanding, 3-ImproveStrength/Curtis 1=Demonstrate adherence to instructed precautions during ADL tasks. 2=Patient will verbalize/demonstrate understanding of assistive devices/ modifications for ADL. 3=Patient will improve strength/tolerance for activity to enable patient to perform ADL's. OT Education/Plan Problem List/Assessment Pt would benefit from skilled OT to increase his independence in basic self care and to decrease caregiver burden. Discharge Recommendations Plan/Recommendations: Continue POC Treatment Plan/Plan of Care Patient would benefit from OT for education, treatment and training to promote independence in ADL's, mobility, safety and/or upper extremity function for ADL' s. Plan of Care: ADL Retraining, Functional Mobility, Group Exercise/Act as Ind ( educaiton, exercise, activity tolerance, functional acitivites, socialization), UE Funct Exercise/Act, UE Neuromus Re-Ed/Coord, W/C Management Training Treatment Duration: Apr 05, 2017 Frequency: At least 5 of 7 days/Wk (IRF) Estimated Hrs Per Day: 1.5 hours per day Agreement: Yes Rehab Potential: Good Time/GCodes Start Time: 12:30 Stop Time: 13:00 Total Time Billed (hr/min): 30 Billed Treatment Time 1 visit-WV 2 (30 min) AARTI STARR Mar 09, 2017 13:32
--- NOTE | 2017-03-09 15:43 | Physical Therapy Daily Note ---
PT Daily Note-Current Subjective Pt sitting in [facility] visiting with family upon arrival. Pt agrees to PT. Pain Location: No Pain Reported Mental Status Patient Orientation: Person, Place, Situation Transfers Functional [place] Measure 0=Not Assessed/NA 4=Minimal Assistance 1=Total Assistance 5=Supervision or Setup 2=Maximal Assistance 6=Modified [place] 3=Moderate Assistance 7=Complete IndependenceIRFPAI Quality Coding Scale 6 Independent with activity with or without an assistive device 5 Patient requires set up or clean up by helper. Patient completes activity by themselves 4 Supervision or touching assist (CGA). [place] provide cues , steadying assist 3 The helper provides less than half the effort to complete the activity 2 The helper provides more than half the effort to complete the activity 1 Dependent. The helper does all the effort to complete an activity 7 Patient refused to complete or attempt activity 9 The patient did not perform the activity before the current illness or injury 88 Not attempted due to Medical conditions or safety concerns Scootin Sit to/from Stand: 3 Weight Bearing Right Lower Extremity: Right Full Weight Bearing Left Lower Extremity: Left Full Weight Bearing Wheelchair Training Does the Pt Use a Wheelchair?: Yes Wheelchair Distance: 3=150 ft Distance: 150' Wheelchair Level of Assist: 2 Wheel 50 ft with 2 turns (QC): 2 Type of Wheelchair: Manual Exercises Seated Therapy Exercises: Ankle pumps, Long arc quads, Hip flexion, Kicking activity NuStep Minutes: 10 Treatments PT propels [facility] to Therapy Gym. Pt completes Seated Ex in [facility] then transfers from [facility] to [facility] at Mod A using SPT. Pt uses NuStep for 10m at Workload 5. Pt transfers back to [facility] and PT propels to room. Pt rests in [facility] at end of tx with all needs met. Assessment Current Status: Good Progress Pt is improving with more independent transfers and Ex. PT Short Term Goals Short Term Goals Time Frame: Mar 22, 2017 Gait (FIM): 2 Distance (FIM): 1=up to 49 ft Gait Assistive Device: Walker Wale Wheelchair (FIM): 6 Wheelchair distance (FIM): 3=150 ft Wheelchair Distance: 200' PT Usp Goals Usp Goals PT Usp Goals Time Frame: Apr 05, 2017 Transfers (B,C,W/C) (FIM): 6 Sit to Lying (QC): 6 Lying-Sitting on Side/Bed(QC): 6 Sit to Stand (QC): 6 Rollin Roll Left to Right (QC): 6 Chair/[id number]-Pieqo Xfer(QC): 6 Car Transfer (QC): 5 Does the Patient Walk: No and Walking Goal IS indicated Gait (FIM): 5 Gait distance (FIM): 3=150 ft Walk 10 feet (QC): 5 Walk 10ft-Uneven Surface(QC): 5 Walk 50ft with 2 Turns (QC): 5 Walk 150 ft (QC): 5 Gait Level of Assist: 5 Gait Assistive Device: Walker Wale Does the Pt use WC or Scooter?: Yes Wheelchair (FIM): 6 Wheelchair distance (FIM): 3=150 ft Wheel 50 feet with 2 turns (QC: 6 Stairs (FIM): 2 # of Steps: 4 1 Step (curb) (QC): 4 4 Steps (QC): 4 12 Steps (QC): 88 Picking up an Object (QC): 88 PT Plan Problem List Problem List: Activity Tolerance, Functional Strength, Safety, Balance, Gait, Transfer, Bed Mobility Treatment/Plan Treatment Plan: Continue Plan of Care Treatment Plan: Bed Mobility, Education, Functional Activity Curtis, Functional Strength, Group Therapy, Gait, Safety, Therapeutic Exercise, Transfers Treatment Duration: Apr 05, 2017 Frequency: At least 5 of 7 days/Wk (IRF) Estimated Hrs Per Day: 1.5 hours per day Patient and/or Family Agrees t: Yes Safety Risks/Education Patient Education: Transfer Techniques, Correct Positioning, Safety Issues Teaching Recipient: Patient Teaching Methods: Discussion Response to Teaching: Verbalize Understanding Time/GCodes Time In: 1330 Time Out: 1400 Total Billed Treatment 1, EX x2 (30m) LIT TANNER PLANT PROTECTION OFFICER Mar 09, 2017 15:43
[2017-03-09 18:22] VITALS: BP 104/63
[2017-03-09] MEDS: ATORVASTATIN 40 MG (LIPITOR) TABLET PO SCH (20:13)
[2017-03-10 05:01] VITALS: BP 111/69
[2017-03-10] MEDS: GLIMEPIRIDE 2 MG (AMARYL) TAB PO SCH (05:09)
[2017-03-10] MEDS: metFORMIN 500 MG (GLUCOPHAGE) TAB PO SCH ×2 (05:09→17:25)
--- NOTE | 2017-03-10 08:18 | PM & R (SOAP) Progress Note ---
Subjective Time Seen by Provider: 07:40 Subjective/Events-last exam Patient was seen in his room this AM Patient Mod assist for transfers Labs and therapy notes reviewed Objective Exam Last Set of Vital Signs Vital Signs Date Time Temp Pulse Resp B/P (MAP) Pulse Ox O2 Delivery O2 Flow Rate FiO2 03/10/17 05:01 97.9 76 18 111/69 (83) 94 Room Air Capillary Refill : I&O Intake and Output 03/10/17 00:00 Intake Total 1580 ml Output Total 350 ml Balance 1230 ml Intake Oral 1580 ml Output Urine Total 350 ml # Voids 3 General: Alert, Oriented X3, Cooperative, No Acute Distress HEENT: Atraumatic, PERRLA, EOMI, Mucous Memb Moist/[place] Neck: Supple, No JVD Lungs: Clear to Auscultation Heart: Regular Rate Abdomen: Normal Bowel Sounds, Soft, No Tenderness Extremities: No Edema Neuro: Other (Left LE flaccid with trace return LUE) Psych/Mental Status: Mental Status NL Results Lab Laboratory Tests 03/08/17 20:17: Glucometer 124H 03/09/17 04:19: Glucometer 127H 03/09/17 06:05: White Blood Count 7.8, Red Blood Count 5.08, Hemoglobin 15.5, Hematocrit 44, Mean Corpuscular Volume 87, Mean Corpuscular Hemoglobin 31, Mean Corpuscular Hemoglobin Concent 35, Red Cell Distribution Width 13.9, Platelet Count 193, Mean Platelet Volume 10.2, Sodium Level 137, Potassium Level 4.7, Chloride Level 105, Carbon Dioxide Level 21, Anion Gap 11, Blood Urea Nitrogen 27H, Creatinine 0.82, Estimat Glomerular Filtration Rate > 60, BUN/Creatinine Ratio 33, Glucose Level 133H, Calcium Level 9.1, Total Bilirubin 0.9, Aspartate Amino Transf (AST/SGOT) 21, Alanine Aminotransferase (ALT/SGPT) 19, Alkaline Phosphatase 99, Total Protein 7.0, Albumin 3.9 03/09/17 16:09: Glucometer 143H 03/10/17 05:08: Glucometer 123H Assessment/Plan Assessment Rt MCA CVA with Left HP HTN controlled DM2 controlled Tobacco abuse declines Patch 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 GERD without espohagitis AAA without rupture Plan Continue PT/OT ST has assessed and signed off Decreased Accucheks as per above-stable Team Conference later today-see report for full functional update and POC and ELOS Patient requests Pet pass-see orders Patient has 2 sons and a daughter in this area to help out upon discharge NNEKA MARTIN MD Mar 10, 2017 08:18
[2017-03-10] MEDS: lisINopril 10 MG (PRINIVIL) TABLET PO SCH (08:36)
[2017-03-10] MEDS: CLOPIDOGREL 75 MG (PLAVIX) TABLET PO SCH (08:36)
--- NOTE | 2017-03-10 08:42 | Progress Note (SOAP) ---
Subjective Time Seen by Provider: 08:40 Subjective/Events-last exam patient working hard. Patient moving left arm.. Patient improving Objective Exam Vital Signs Date Time Temp Pulse Resp B/P (MAP) Pulse Ox O2 Delivery O2 Flow Rate FiO2 03/10/17 05:01 97.9 76 18 111/69 (83) 94 Room Air 03/09/17 21:00 Room Air 03/09/17 18:22 98.3 74 16 104/63 (77) 95 Room Air 03/09/17 09:33 Room Air I & O 03/10/17 07:00 Intake Total 1680 ml Output Total 300 ml Balance 1380 ml Capillary Refill : General Appearance: No Apparent Distress, WD/WN Results Lab Laboratory Tests 03/09/17 16:09: Glucometer 143H 03/10/17 05:08: Glucometer 123H Assessment/Plan Assessment/Plan Assess & Plan/Chief Complaint CVA on left. Hypertension. Hyperlipidemia. Tobacco usage. Abdominal aortic aneurysm. GERD . 03/10/17. 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 Hypertension. Hyperlipidemia. Tobacco usage. Patient working hard and moving left arm today Clinical Quality Measures DVT/VTE Risk/Contraindication: Risk Factor Score Per Nursin RFS Level Per Nursing on Admit: 4+=Very High JAIME ROBERSON DO Mar 10, 2017 08:42
--- NOTE | 2017-03-10 08:55 | Occupational Ther Daily Note ---
OT Current Status-Daily Note Subjective Pt alert, lying in bed. Pt agreed to therapy. No c/o pain at this time. Pt demonstrated increase AROM with elbow flexion/extension. Mental Status/Objective Patient Orientation: Person, Place, Time, Situation Functional [place] Measure 0=Not Assessed/NA 4=Minimal Assistance 1=Total Assistance 5=Supervision or Setup 2=Maximal Assistance 6=Modified [place] 3=Moderate Assistance 7=Complete [place] ADL-Treatment Pt declined shower today, but did want to clean up. Mod A for supine to sitting EOB with HOB raised. Pt then transferred with max A from EOB to w/c. Pt then doffed shirt with verbal cues for one handed technique. Pt completed grooming at w/c level in front of sink by self. Pt then was educated on donning /doffing clothing with one-arm technique. Mod A to don shirt. Pt pulled self up with raised bed rail to doff/don and cleanse buttocks and dorcas area. Pt stood with mod A for balance and to stabilize L LE. Pt was able to grasp bed rail with B hands then let go to cleanse dorcas area while MARTELL assisted with balance and standing. Assist to cleanse buttocks in standing. Pt required assist to cross L LE over R knee then hold to keep in place. Pt was able to don pants and underwear over L foot with mod A. Pt was able to don/doff pants underwear over R foot with CGA for balance when leaning forward. Pt doffed socks with min A. Max A to don socks/shoes. Mod A in standing to hike pants over hips. Functional [place] Measure 0=Not Assessed/NA 4=Minimal Assistance 1=Total Assistance 5=Supervision or Setup 2=Maximal Assistance 6=Modified [place] 3=Moderate Assistance 7=Complete IndependenceIRFPAI Quality Coding Scale 6 Independent with activity with or without an assistive device 5 Patient requires set up or clean up by helper. Patient completes activity by themselves 4 Supervision or touching assist (CGA). [place] provide cues , steadying assist 3 The helper provides less than half the effort to complete the activity 2 The helper provides more than half the effort to complete the activity 1 Dependent. The helper does all the effort to complete an activity 7 Patient refused to complete or attempt activity 9 The patient did not perform the activity before the current illness or injury 88 Not attempted due to Medical conditions or safety concerns Grooming (FIM): 5 Oral Hygiene (QC): 5 Bathing (FIM): 3 Upper Body (FIM): 4 Upper Body Dressing (QC): 3 Lower Body Dressing (FIM): 2 Lower Body Dressing (QC): 2 On/Off Footwear (QC): 2 Pt demonstrated slight LOB toward L side when leaning forward. Other Treatment Pt maneuvered w/c to therapy gym with minimal verbal cues to manipulate w/c. Pt then transferred to therapy mat with mod A. Pt worked on sitting balance to lean side to side and forward/backward. Pt required min A to come back to midline due to decreased strength of L side. Pt demonstrated progress during therapy session. Pt maneuvered w/c back to room by self. After therapy, pt sitting in w/c in room with call light/phone in reach. All needs met in room. Education OT Patient Education: Modified ADL techniques, Purpose of tx/functional activities, Transfer techniques Teaching Recipient: Patient Teaching Methods: Demonstration, Discussion Response to Teaching: Verbalize Understanding, Return Demonstration, Reinforcement Needed OT Short Term Goals Short Term Goals Time Frame: Mar 22, 2017 Grooming(FIM): 5 Bathing(FIM): 4 Toileting(FIM): 3 Toilet/Commode Transfer(FIM): 4 Additional Short Term Goals: 2-Verbalize Understanding, 3-ImproveStrength/Curtis 1=Demonstrate adherence to instructed precautions during ADL tasks. 2=Patient will verbalize/demonstrate understanding of assistive devices/ modifications for ADL. 3=Patient will improve strength/tolerance for activity to enable patient to perform ADL's. OT Wire Strander Goals Wire Strander Goals Time Frame: Apr 05, 2017 Eating (FIM): 6 Eating (QC): 6 Groomin Oral Hygiene (QC): 6 Bathing(FIM): 5 Shower/Bathe Self (QC): 5 Upper Body Dressing(FIM): 6 Upper Body Dressing (QC): 6 Lower Body Dressing(FIM): 5 Lower Body Dressing (QC): 5 On/Off Footwear (QC): 5 Toileting(FIM): 5 Toileting Hygiene (QC): 5 Toilet/Commode Transfer(FIM): 5 Toilet/Commode Transfer (QC): 5 Shower Transfer(FIM): 5 Additional Goals: 2-Verbalize Understanding, 3-ImproveStrength/Curtis 1=Demonstrate adherence to instructed precautions during ADL tasks. 2=Patient will verbalize/demonstrate understanding of assistive devices/ modifications for ADL. 3=Patient will improve strength/tolerance for activity to enable patient to perform ADL's. OT Education/Plan Problem List/Assessment Pt would benefit from skilled OT to increase his independence in basic self care and to decrease caregiver burden. Discharge Recommendations Plan/Recommendations: Continue POC Treatment Plan/Plan of Care Patient would benefit from OT for education, treatment and training to promote independence in ADL's, mobility, safety and/or upper extremity function for ADL' s. Plan of Care: ADL Retraining, Functional Mobility, Group Exercise/Act as Ind ( educaiton, exercise, activity tolerance, functional acitivites, socialization), UE Funct Exercise/Act, UE Neuromus Re-Ed/Coord, W/C Management Training Treatment Duration: Apr 05, 2017 Frequency: At least 5 of 7 days/Wk (IRF) Estimated Hrs Per Day: 1.5 hours per day Agreement: Yes Rehab Potential: Good Time/GCodes Start Time: 08:30 Stop Time: 10:00 Total Time Billed (hr/min): 90 Billed Treatment Time 1 visit-ADL 4 (60 min) NM 2 (30 min) AARTI STARR Mar 10, 2017 08:55
--- NOTE | 2017-03-10 11:03 | Physical Therapy Daily Note ---
PT Daily Note-Current Subjective Pt is sitting in [facility] pre tx with c/o minimal back pain. Pt agrees to PT. Pain Comment: No numerical value given Appearance Pt is sitting in [facility] post tx with phone, remote, and tray within reach. Mental Status Patient Orientation: Normal For Age Transfers Functional [place] Measure 0=Not Assessed/NA 4=Minimal Assistance 1=Total Assistance 5=Supervision or Setup 2=Maximal Assistance 6=Modified [place] 3=Moderate Assistance 7=Complete IndependenceIRFPAI Quality Coding Scale 6 Independent with activity with or without an assistive device 5 Patient requires set up or clean up by helper. Patient completes activity by themselves 4 Supervision or touching assist (CGA). [place] provide cues , steadying assist 3 The helper provides less than half the effort to complete the activity 2 The helper provides more than half the effort to complete the activity 1 Dependent. The helper does all the effort to complete an activity 7 Patient refused to complete or attempt activity 9 The patient did not perform the activity before the current illness or injury 88 Not attempted due to Medical conditions or safety concerns Transfers (B, C, W/C) (FIM): 3 Scootin Rollin Supine to/from Sit: 3 Sit to/from Stand: 3 Bed to/from Chair: 3 Pt requires mod A for bed mobility when not using the handrails to help. Weight Bearing Right Lower Extremity: Right Full Weight Bearing Left Lower Extremity: Left Full Weight Bearing Gait Training Does the Patient Walk?: No and Walking Goal IS indicated Gait (FIM): 1 Distance: 8 feet x3 Gait Level of Assist: 2 Gait Persons Needed: 1 Gait Assistive Device: Parallel Bars Pt required max A to step with the LLE in the parallel bars. Wheelchair Training Does the Pt Use a Wheelchair?: Yes Wheelchair (FIM): 5 Distance: 150 feetx2 Wheelchair Level of Assist: 5 Type of Wheelchair: Manual Exercises Seated Therapy Exercises: Ankle pumps (20 x1 RLE), Long arc quads (10 x1 RLE), Hip flexion (10 x1 RLE) In supine, pt taken through PROM of the LLE of the hip, knee, and ankle. Treatments Pt performed bed mobility, functional activity, gait training, LE exercises. Assessment Current Status: Fair Progress Pt requires mod A for bed mobility and max A for gait training. Pt tolerated PROM of the LLE well in supine. Pt is making fair progress towards goals. PT Short Term Goals Short Term Goals Time Frame: Mar 22, 2017 Gait (FIM): 2 Distance (FIM): 1=up to 49 ft Gait Assistive Device: Walker Wale Wheelchair (FIM): 6 Wheelchair distance (FIM): 3=150 ft Wheelchair Distance: 150' PT Retail Sales Assistant Goals Usp Goals PT Retail Sales Assistant Goals Time Frame: Apr 05, 2017 Transfers (B,C,W/C) (FIM): 6 Sit to Lying (QC): 6 Lying-Sitting on Side/Bed(QC): 6 Sit to Stand (QC): 6 Rollin Roll Left to Right (QC): 6 Chair/Glf-lb-Kciav Xfer(QC): 6 Car Transfer (QC): 5 Does the Patient Walk: No and Walking Goal IS indicated Gait (FIM): 5 Gait distance (FIM): 3=150 ft Walk 10 feet (QC): 5 Walk 10ft-Uneven Surface(QC): 5 Walk 50ft with 2 Turns (QC): 5 Walk 150 ft (QC): 5 Gait Level of Assist: 5 Gait Assistive Device: Walker [place] Does the Pt use WC or Scooter?: Yes Wheelchair (FIM): 6 Wheelchair distance (FIM): 3=150 ft Wheel 50 feet with 2 turns (QC: 6 Stairs (FIM): 2 # of Steps: 4 1 Step (curb) (QC): 4 4 Steps (QC): 4 12 Steps (QC): 88 Picking up an Object (QC): 88 PT Plan Problem List Problem List: Activity Tolerance, Functional Strength, Safety, Balance, Gait, Transfer, Bed Mobility, ROM Treatment/Plan Treatment Plan: Continue Plan of Care Treatment Plan: Bed Mobility, Education, Functional Activity Curtis, Functional Strength, Group Therapy, Gait, Safety, Therapeutic Exercise, Transfers Treatment Duration: Apr 05, 2017 Frequency: At least 5 of 7 days/Wk (IRF) Estimated Hrs Per Day: 1.5 hours per day Patient and/or Family Agrees t: Yes Safety Risks/Education Patient Education: Gait Training, Transfer Techniques, Correct Positioning, W/ C Management, Safety Issues Teaching Recipient: Patient Teaching Methods: Demonstration, Discussion Response to Teaching: Verbalize Understanding, Return Demonstration, Reinforcement Needed Time/GCodes Time In: 1000 Time Out: 1100 Total Billed Treatment Time: 60 Total Billed Treatment 1 visit 10 min WCH 20 min GT 30 min EX MARJ FARIA PT Mar 10, 2017 11:02
--- NOTE | 2017-03-10 14:56 | Physical Therapy Daily Note ---
PT Daily Note-Current Subjective Pt is sitting in recliner pre tx and agrees to PT with no c/o pain. Pain Numeric Pain Scale: 0-No Pain Appearance Pt is laying in bed post tx with phone, remote, and tray within reach. Mental Status Patient Orientation: Person, Place, Situation Transfers Functional [place] Measure 0=Not Assessed/NA 4=Minimal Assistance 1=Total Assistance 5=Supervision or Setup 2=Maximal Assistance 6=Modified [place] 3=Moderate Assistance 7=Complete IndependenceIRFPAI Quality Coding Scale 6 Independent with activity with or without an assistive device 5 Patient requires set up or clean up by helper. Patient completes activity by themselves 4 Supervision or touching assist (CGA). [place] provide cues , steadying assist 3 The helper provides less than half the effort to complete the activity 2 The helper provides more than half the effort to complete the activity 1 Dependent. The helper does all the effort to complete an activity 7 Patient refused to complete or attempt activity 9 The patient did not perform the activity before the current illness or injury 88 Not attempted due to Medical conditions or safety concerns Transfers (B, C, W/C) (FIM): 3 Scootin Rollin Sit to/from Stand: 3 Bed to/from Chair: 3 Pt requires mod A for sit to stand transfer. Cues for safety and hand placement. Weight Bearing Right Lower Extremity: Right Full Weight Bearing Left Lower Extremity: Left Full Weight Bearing Gait Training Does the Patient Walk?: No and Walking Goal IS indicated Wheelchair Training Does the Pt Use a Wheelchair?: Yes Wheelchair (FIM): 6 Distance: 150 feet x2 Wheelchair Level of Assist: 6 Type of Wheelchair: Manual Exercises NuStep Minutes: 10 NuStep Workload: 5 Treatments Pt performed bed mobility, WCH mobility, and LE exercises. Assessment Current Status: Fair Progress Pt requires mod A for sit to stand transfer. Pt is not yet able to hold onto the handle of the NuStep with the LUE. Pt was able to tolerate 10 minutes on the NuStep at a 5 workload. PT Short Term Goals Short Term Goals Time Frame: Mar 22, 2017 Gait (FIM): 2 Distance (FIM): 1=up to 49 ft Gait Assistive Device: Walker Wale Wheelchair (FIM): 6 Wheelchair distance (FIM): 3=150 ft Wheelchair Distance: 150 feetx2 PT Intermediate Goals Intermediate Goals PT Credit Union Manager Goals Time Frame: Apr 05, 2017 Transfers (B,C,W/C) (FIM): 6 Sit to Lying (QC): 6 Lying-Sitting on Side/Bed(QC): 6 Sit to Stand (QC): 6 Rollin Roll Left to Right (QC): 6 Chair/Xzg-se-Lcimp Xfer(QC): 6 Car Transfer (QC): 5 Does the Patient Walk: No and Walking Goal IS indicated Gait (FIM): 5 Gait distance (FIM): 3=150 ft Walk 10 feet (QC): 5 Walk 10ft-Uneven Surface(QC): 5 Walk 50ft with 2 Turns (QC): 5 Walk 150 ft (QC): 5 Gait Level of Assist: 5 Gait Assistive Device: Walker Wale Does the Pt use WC or Scooter?: Yes Wheelchair (FIM): 6 Wheelchair distance (FIM): 3=150 ft Wheel 50 feet with 2 turns (QC: 6 Stairs (FIM): 2 # of Steps: 4 1 Step (curb) (QC): 4 4 Steps (QC): 4 12 Steps (QC): 88 Picking up an Object (QC): 88 PT Plan Problem List Problem List: Activity Tolerance, Functional Strength, Safety, Balance, Gait, Transfer, Bed Mobility, ROM Treatment/Plan Treatment Plan: Continue Plan of Care Treatment Plan: Bed Mobility, Education, Functional Activity Curtis, Functional Strength, Group Therapy, Gait, Safety, Therapeutic Exercise, Transfers Treatment Duration: Apr 05, 2017 Frequency: At least 5 of 7 days/Wk (IRF) Estimated Hrs Per Day: 1.5 hours per day Patient and/or Family Agrees t: Yes Safety Risks/Education Patient Education: Transfer Techniques, Correct Positioning, W/C Management, Safety Issues Teaching Recipient: Patient Teaching Methods: Demonstration, Discussion Response to Teaching: Reinforcement Needed Time/GCodes Time In: 1400 Time Out: 1430 Total Billed Treatment Time: 30 Total Billed Treatment 1 visit 10 min EX 20 min MARJ LARSEN PT Mar 10, 2017 14:56
[2017-03-10 18:00] VITALS: BP 109/70
--- NOTE | 2017-03-10 18:53 | Individualized Plan of Care ---
Individualized Plan of Care Rehab Nursing IPOC Order Admission Date Mar 08, 2017 at 14:26 Current Orders Orders Sequential Compression Device 08,20 (03/08/17 14:46) Dvt/Vte Risk - Notifiy Physici (03/08/17 14:46) Physical Therapy Rehab Orders (03/08/17 14:48) Occupational Therapy Order (03/08/17 14:48) Request Speech/Language Servic (03/08/17 14:48) Cho 60g/M 1snack (16-2000 Nehemias) (03/08/17 Lunch) Metformin Tablet (Glucophage Tablet) (03/08/17 17:00) Lisinopril Tablet (Zestril Tablet) (03/09/17 09:00) Glimepiride Tablet (Amaryl Tablet) (03/09/17 06:30) Clopidogrel Tablet (Plavix Tablet) (03/09/17 09:00) Atorvastatin Tablet (Lipitor) (03/08/17 21:00) Code/Resuscitation (03/08/17 15:09) Admission-Acute Rehab Unit (03/08/17 15:09) Patient Visit (03/08/17 ) Speech Sound Lang Comp (03/08/17 ) Patient Visit (03/08/17 ) Pt Eval Moderate Complexity (03/08/17 ) Functional Activities, Ea 15 (03/08/17 ) Wheelchair Mgmt/Propulsn 15min (03/08/17 ) Admission-Acute Rehab Unit (03/08/17 19:49) Vital Signs: Routine 08,16,00 (03/08/17 19:49) General Practitioner-Inpt Rehab (03/08/17 19:49) Rehab Nursing Orders-Ipoc (03/08/17 19:49) Turn And Reposition Q2HR (03/08/17 19:49) Weekly Weight (Lbs) WEEK (03/08/17 19:49) Cbc No Diff (03/09/17 06:00) Comprehensive Metabolic Panel (03/09/17 06:00) Consult Physician (03/08/17 19:53) Accucheck Bid DBID (03/09/17 07:51) Patient Visit (03/09/17 ) Functional Activities, Ea 15 (03/09/17 ) Exercise Therap, Ea 15 Min (03/09/17 ) Nursing Communication (Patient (03/09/17 17:07) Patient Visit (03/10/17 ) Exercise Therap, Ea 15 Min (03/10/17 ) Gait Training, Ea 15 Min (03/10/17 ) Wheelchair Mgmt/Propulsn 15min (03/10/17 ) Functional Activities, Ea 15 (03/10/17 ) Rehab Nursing Orders: Diseage Management, Edu in Press Rel Techn, Hydration Management, Nutrition Management, Pain Management Other Nursing Orders: Monitor for urinary retention and constipation PT IPOC Problem List: Activity Tolerance, Functional Strength, Safety, Balance, Gait, Transfer, Bed Mobility, ROM Treatment Plan: Continue Plan of Care Bed Mobility, Education, Functional Activity Curtis, Functional Strength, Group Therapy, Gait, Safety, Therapeutic Exercise, Transfers Treatment Duration: Apr 05, 2017 Frequency: At least 5 of 7 days/Wk (IRF) Estimated Hrs Per Day: 1.5 hours per day OT IPOC Problems: Decreased Activ Tolerance, Decreased UE Strength, Dependent Transfers , Impaired Coordination, Impaired Funct Balance, Impaired Self-Care Skills, Restricted Funct UE ROM OT Treatment, Training and Edu: Yes OT Problems Pt would benefit from skilled OT to increase his independence in basic self care and to decrease caregiver burden. Plan of Care: ADL Retraining, Functional Mobility, Group Exercise/Act as Ind ( educaiton, exercise, activity tolerance, functional acitivites, socialization), UE Funct Exercise/Act, UE Neuromus Re-Ed/Coord, W/C Management Training Treatment Duration: Apr 05, 2017 Frequency: At least 5 of 7 days/Wk (IRF) Estimated Hrs Per Day: 1.[address] IPOC Speech Therapy Treatment Plan: Discontinue ST Treatment Duration: Mar 10, 2017 Frequency: Modified Program (IRF) Estimated Hrs Per Day: Other General Practitioner/Case Mgmt General Practitioner/Case Managemen: Discharge Planning, Patient/Family Counseling Physician IPOC Medical Issues being managed closely and that require the 24 hour availability of a physician:HTN DM Tobaccoism GERD Medical Issues: Bowel/Bladder Function, DVT Prophylaxis, Falls Precautions, Fluid/Electrolyte/Nutrition Balance, Infection Protection, Pain Management, Other (List) (as per above) Brief Synthesis of Preadmission Screen, Post-Admission Evaluation, and Therapy Evaluations: 72 yo male who had been Independent and working and living with son who sustained a RT Basal Ganglia Infarct with Left HP Treated at [facility] with TPA. PMH DM HTN Tobaccoism GERD C CODE 01.1 Etiologic DX Subacute Infarct RT Basal ganglia Medical Prognosis: Good Anticipated Length of Stay: 04-05-17 Rehab Goals Modified Independent to supervision for adls and mobility skills Anticipated discharge destinat: Home with son and [facility] NNEKA MARTIN MD Mar 10, 2017 18:53
[2017-03-10] MEDS: ATORVASTATIN 40 MG (LIPITOR) TABLET PO SCH (20:17)
[2017-03-11 02:00] VITALS: BP 121/75
[2017-03-11] MEDS: GLIMEPIRIDE 2 MG (AMARYL) TAB PO SCH (06:31)
[2017-03-11] MEDS: metFORMIN 500 MG (GLUCOPHAGE) TAB PO SCH ×2 (06:31→16:40)
--- NOTE | 2017-03-11 08:20 | Progress Note (SOAP) ---
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 Tobaccoism. Hypertension. Hyperlipidemia. Abdominal aortic aneurysm. patient is improving. Patient moving his left hand better. 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 Hypertension. Hyperlipidemia. Tobacco usage. Abdominal aortic aneurysm. GERD . 03/10/17. 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 Hypertension. Hyperlipidemia. Tobacco usage. Patient working hard and moving left arm today. . 03/11/17. 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 Hypertension. Hyperlipidemia. Tobacco usage. Patient working hard and improving Clinical Quality Measures DVT/VTE Risk/Contraindication: Risk Factor Score Per Nursin RFS Level Per Nursing on Admit: 4+=Very High JAIME ROBERSON DO Mar 11, 2017 08:20
[2017-03-11] MEDS: CLOPIDOGREL 75 MG (PLAVIX) TABLET PO SCH (08:44)
[2017-03-11] MEDS: lisINopril 10 MG (PRINIVIL) TABLET PO SCH (08:44)
--- NOTE | 2017-03-11 10:12 | Occupational Ther Daily Note ---
OT Current Status-Daily Note Subjective Pt alert, sitting on EOB. Pt agreed to therapy. No c/o pain. Mental Status/Objective Functional [place] Measure 0=Not Assessed/NA 4=Minimal Assistance 1=Total Assistance 5=Supervision or Setup 2=Maximal Assistance 6=Modified [place] 3=Moderate Assistance 7=Complete [place] ADL-Treatment Pt agreed to shower. Pt transferred with mod A from sitting EOB to w/c. Pt transported to large shower room to complete shower. Pt pulled to stand with min A using grabbar the stood with mod A and shower chair placed for pt to use during shower. Pt completed all bathing/rinse/drying with supervision while seated on shower chair with cutout using hand held shower and long handle sponge. Then pt pulled to stand using grabbar with mod A in standing and w/c placed for pt to sit on. Min A for upper body dressing, shirt position for pt and assist to initiate over L hand then pt able to complete rest of donning shirt. Doffs by self. Verbal cues and SBA for pt to don/doff socks and pants over feet. Mod A to stand while pt hikes pants over R hip, assist for L hip. Pt leans over to don socks and pants with SBA for safety. Pt then sitting in front of sink to complete oral care and combing hair. Pt was able to shave stack though inefficient at this time. Functional [place] Measure 0=Not Assessed/NA 4=Minimal Assistance 1=Total Assistance 5=Supervision or Setup 2=Maximal Assistance 6=Modified [place] 3=Moderate Assistance 7=Complete IndependenceIRFPAI Quality Coding Scale 6 Independent with activity with or without an assistive device 5 Patient requires set up or clean up by helper. Patient completes activity by themselves 4 Supervision or touching assist (CGA). [place] provide cues , steadying assist 3 The helper provides less than half the effort to complete the activity 2 The helper provides more than half the effort to complete the activity 1 Dependent. The helper does all the effort to complete an activity 7 Patient refused to complete or attempt activity 9 The patient did not perform the activity before the current illness or injury 88 Not attempted due to Medical conditions or safety concerns Grooming (FIM): 4 Oral Hygiene (QC): 6 Bathing (FIM): 5 Bathing Location: L Arm, R Arm, L Upper Leg, R Upper Leg, L Lower Leg ( including foot), R Lower Leg (including foot), Chest, Abdomen, Buttocks, Perineal Area Other Treatment Pt then worked on isolating movement with L UE. Trace movement in L shldr. Progress with AROM of wrist, fingers, forearm and elbow. After therapy, pt sitting in w/c with call light/phone in reach. All needs met in room. OT Short Term Goals Short Term Goals Time Frame: Mar 22, 2017 Grooming(FIM): 5 Bathing(FIM): 4 Toileting(FIM): 3 Toilet/Commode Transfer(FIM): 4 Additional Short Term Goals: 2-Verbalize Understanding, 3-ImproveStrength/Curtis 1=Demonstrate adherence to instructed precautions during ADL tasks. 2=Patient will verbalize/demonstrate understanding of assistive devices/ modifications for ADL. 3=Patient will improve strength/tolerance for activity to enable patient to perform ADL's. OT Chcf Goals [employer] Driver Goals Time Frame: Apr 05, 2017 Eating (FIM): 6 Eating (QC): 6 Groomin Oral Hygiene (QC): 6 Bathing(FIM): 5 Shower/Bathe Self (QC): 5 Upper Body Dressing(FIM): 6 Upper Body Dressing (QC): 6 Lower Body Dressing(FIM): 5 Lower Body Dressing (QC): 5 On/Off Footwear (QC): 5 Toileting(FIM): 5 Toileting Hygiene (QC): 5 Toilet/Commode Transfer(FIM): 5 Toilet/Commode Transfer (QC): 5 Shower Transfer(FIM): 5 Additional Goals: 2-Verbalize Understanding, 3-ImproveStrength/Curtis 1=Demonstrate adherence to instructed precautions during ADL tasks. 2=Patient will verbalize/demonstrate understanding of assistive devices/ modifications for ADL. 3=Patient will improve strength/tolerance for activity to enable patient to perform ADL's. OT Education/Plan Problem List/Assessment Pt would benefit from skilled OT to increase his independence in basic self care and to decrease caregiver burden. Discharge Recommendations Plan/Recommendations: Continue POC Treatment Plan/Plan of Care Patient would benefit from OT for education, treatment and training to promote independence in ADL's, mobility, safety and/or upper extremity function for ADL' s. Plan of Care: ADL Retraining, Functional Mobility, Group Exercise/Act as Ind ( educaiton, exercise, activity tolerance, functional acitivites, socialization), UE Funct Exercise/Act, UE Neuromus Re-Ed/Coord, W/C Management Training Treatment Duration: Apr 05, 2017 Frequency: At least 5 of 7 days/Wk (IRF) Estimated Hrs Per Day: 1.5 hours per day Agreement: Yes Rehab Potential: Good Time/GCodes Start Time: 07:00 Stop Time: 08:30 Total Time Billed (hr/min): 90 Billed Treatment Time 1 visit-ADL 4 (65 min) NM 2 (35 min) AARTI STARR Mar 11, 2017 10:12
--- NOTE | 2017-03-11 10:32 | Physical Therapy Daily Note ---
PT Daily Note-Current Subjective Pt is sitting in recliner pre tx and agrees to PT with no reports of pain. Pain Numeric Pain Scale: 0-No Pain Appearance Pt is sitting in recliner with phone, remote, and tray within reach. Mental Status Patient Orientation: Normal For Age Transfers Functional [place] Measure 0=Not Assessed/NA 4=Minimal Assistance 1=Total Assistance 5=Supervision or Setup 2=Maximal Assistance 6=Modified [place] 3=Moderate Assistance 7=Complete IndependenceIRFPAI Quality Coding Scale 6 Independent with activity with or without an assistive device 5 Patient requires set up or clean up by helper. Patient completes activity by themselves 4 Supervision or touching assist (CGA). Russell provide cues , steadying assist 3 The helper provides less than half the effort to complete the activity 2 The helper provides more than half the effort to complete the activity 1 Dependent. The helper does all the effort to complete an activity 7 Patient refused to complete or attempt activity 9 The patient did not perform the activity before the current illness or injury 88 Not attempted due to Medical conditions or safety concerns Transfers (B, C, W/C) (FIM): 3 Scootin Rollin Supine to/from Sit: 3 Sit to/from Stand: 3 Bed to/from Chair: 3 Pt requires mod A for most transfers and verbal cues for hand placement and eccentric lowering. Weight Bearing Right Lower Extremity: Right Full Weight Bearing Left Lower Extremity: Left Full Weight Bearing Gait Training Does the Patient Walk?: Yes Gait (FIM): 1 Distance: 20 feet x1, 10 feet x2 Gait Level of Assist: 3 Gait Persons Needed: 1 Gait Assistive Device: Walker Wale Pt requires mod A for gait with use of the wale walker, knee immobilizer, and ANISHA wrap around the ankle. Patient is able to advance his left leg when he is assisted with weight shifting. Wheelchair Training Does the Pt Use a Wheelchair?: Yes Wheelchair (FIM): 5 Distance: 150 feet x2 Wheelchair Level of Assist: 5 Type of Wheelchair: Manual Exercises Seated Therapy Exercises: Ankle pumps (15 x1 RLE), Long arc quads (15 x1 RLE), Hip abd/add (15 x1 RLE) NuStep Minutes: 15 NuStep Workload: 5 Treatments Pt performed bed mobility, WCH mobility, gait training, functional activity, and LE exercises. Assessment Current Status: Fair Progress Improved ambulation. Pt is making fair progress towards goals. PT Short Term Goals Short Term Goals Time Frame: Mar 22, 2017 Gait (FIM): 2 Distance (FIM): 1=up to 49 ft Gait Assistive Device: Walker Wale Wheelchair (FIM): 6 Wheelchair distance (FIM): 3=150 ft Wheelchair Distance: 150 feet x2 PT Jail Goals Jail Goals PT Fitness Director Goals Time Frame: Apr 05, 2017 Transfers (B,C,W/C) (FIM): 6 Sit to Lying (QC): 6 Lying-Sitting on Side/Bed(QC): 6 Sit to Stand (QC): 6 Rollin Roll Left to Right (QC): 6 Chair/Pma-rj-Lauxg Xfer(QC): 6 Car Transfer (QC): 5 Does the Patient Walk: No and Walking Goal IS indicated Gait (FIM): 5 Gait distance (FIM): 3=150 ft Walk 10 feet (QC): 5 Walk 10ft-Uneven Surface(QC): 5 Walk 50ft with 2 Turns (QC): 5 Walk 150 ft (QC): 5 Gait Level of Assist: 5 Gait Assistive Device: Walker Wale Does the Pt use WC or Scooter?: Yes Wheelchair (FIM): 6 Wheelchair distance (FIM): 3=150 ft Wheel 50 feet with 2 turns (QC: 6 Stairs (FIM): 2 # of Steps: 4 1 Step (curb) (QC): 4 4 Steps (QC): 4 12 Steps (QC): 88 Picking up an Object (QC): 88 PT Plan Problem List Problem List: Activity Tolerance, Functional Strength, Safety, Balance, Gait, Transfer, Bed Mobility, ROM Treatment/Plan Treatment Plan: Continue Plan of Care Treatment Plan: Bed Mobility, Education, Functional Activity Curtis, Functional Strength, Group Therapy, Gait, Safety, Therapeutic Exercise, Transfers Treatment Duration: Apr 05, 2017 Frequency: At least 5 of 7 days/Wk (IRF) Estimated Hrs Per Day: 1.5 hours per day Patient and/or Family Agrees t: Yes Safety Risks/Education Patient Education: Gait Training, Transfer Techniques, Correct Positioning, W/ C Management, Safety Issues Teaching Recipient: Patient Teaching Methods: Demonstration, Discussion Response to Teaching: Reinforcement Needed Time/GCodes Time In: 900 Time Out: 1000 Total Billed Treatment Time: 60 Total Billed Treatment 1 visit 30 min GT 20 min EX 10 min MARJ LARSEN PT Mar 11, 2017 10:32
--- NOTE | 2017-03-11 15:07 | Physical Therapy Daily Note ---
PT Daily Note-Current Subjective Pt is sitting in recliner prior to tx and agrees to PT with no report or pain. Pain Numeric Pain Scale: 0-No Pain Appearance Pt is sitting in [facility] at the conclusion of tx with phone, remote, and tray within reach. PT ordered pt a snack. Mental Status Patient Orientation: Normal For Age Transfers Functional [place] Measure 0=Not Assessed/NA 4=Minimal Assistance 1=Total Assistance 5=Supervision or Setup 2=Maximal Assistance 6=Modified [place] 3=Moderate Assistance 7=Complete IndependenceIRFPAI Quality Coding Scale 6 Independent with activity with or without an assistive device 5 Patient requires set up or clean up by helper. Patient completes activity by themselves 4 Supervision or touching assist (CGA). Kathleen provide cues , steadying assist 3 The helper provides less than half the effort to complete the activity 2 The helper provides more than half the effort to complete the activity 1 Dependent. The helper does all the effort to complete an activity 7 Patient refused to complete or attempt activity 9 The patient did not perform the activity before the current illness or injury 88 Not attempted due to Medical conditions or safety concerns Transfers (B, C, W/C) (FIM): 3 Scootin Rollin Supine to/from Sit: 4 Sit to/from Stand: 3 Mod A required for sit to stand transfer and verbal cues required for safety. Weight Bearing Right Lower Extremity: Right Full Weight Bearing Left Lower Extremity: Left Full Weight Bearing Gait Training Does the Patient Walk?: Yes Gait (FIM): 1 Distance: 12 feet x1, 6 feet x1 Gait Level of Assist: 3 Gait Assistive Device: Walker Wale Pt wore knee immobilizer and ANISHA wrap on the LLE. Pt is able to independently swing the LLE, but when he is fatigued, pt adducts the LLE during swing phase. Wheelchair Training Does the Pt Use a Wheelchair?: Yes Wheelchair (FIM): 2 Distance: 150 feet Wheelchair Level of Assist: 6 Type of Wheelchair: Manual Treatments Pt performing [facility] mobility and gait training. Assessment Current Status: Good Progress Pt is walking 12 feet with mod A. Verbal cues are required for gait sequencing. Pt is making good progress towards goals. PT Short Term Goals Short Term Goals Time Frame: Mar 22, 2017 Gait (FIM): 2 Distance (FIM): 1=up to 49 ft Gait Assistive Device: Walker Wale Wheelchair (FIM): 6 Wheelchair distance (FIM): 3=150 ft Wheelchair Distance: 150 feet x2 PT Mcfp Goals Senior Director Of [employer] Goals PT Senior Director Of [employer] Goals Time Frame: Apr 05, 2017 Transfers (B,C,W/C) (FIM): 6 Sit to Lying (QC): 6 Lying-Sitting on Side/Bed(QC): 6 Sit to Stand (QC): 6 Rollin Roll Left to Right (QC): 6 Chair/Edy-fq-Oazxc Xfer(QC): 6 Car Transfer (QC): 5 Does the Patient Walk: No and Walking Goal IS indicated Gait (FIM): 5 Gait distance (FIM): 3=150 ft Walk 10 feet (QC): 5 Walk 10ft-Uneven Surface(QC): 5 Walk 50ft with 2 Turns (QC): 5 Walk 150 ft (QC): 5 Gait Level of Assist: 5 Gait Assistive Device: Walker Wale Does the Pt use WC or Scooter?: Yes Wheelchair (FIM): 6 Wheelchair distance (FIM): 3=150 ft Wheel 50 feet with 2 turns (QC: 6 Stairs (FIM): 2 # of Steps: 4 1 Step (curb) (QC): 4 4 Steps (QC): 4 12 Steps (QC): 88 Picking up an Object (QC): 88 PT Plan Problem List Problem List: Activity Tolerance, Functional Strength, Safety, Balance, Gait, Transfer, Bed Mobility, ROM Treatment/Plan Treatment Plan: Continue Plan of Care Treatment Plan: Bed Mobility, Education, Functional Activity Curtis, Functional Strength, Group Therapy, Gait, Safety, Therapeutic Exercise, Transfers Treatment Duration: Apr 05, 2017 Frequency: At least 5 of 7 days/Wk (IRF) Estimated Hrs Per Day: 1.5 hours per day Patient and/or Family Agrees t: Yes Safety Risks/Education Patient Education: Gait Training, Transfer Techniques, Correct Positioning, W/ C Management, Safety Issues Teaching Recipient: Patient Teaching Methods: Demonstration, Discussion Response to Teaching: Reinforcement Needed Time/GCodes Time In: 1400 Time Out: 1430 Total Billed Treatment Time: 30 Total Billed Treatment 1 visit 20 min GT 10 min [facility] AARTI TARIQ PT Mar 11, 2017 15:07
--- NOTE | 2017-03-11 15:22 | PM & R (SOAP) Progress Note ---
Subjective Time Seen by Provider: 08:00 Subjective/Events-last exam Patient was seen in his room this AM Patient min assist for transfers Objective Exam Last Set of Vital Signs Vital Signs Date Time Temp Pulse Resp B/P (MAP) Pulse Ox O2 Delivery O2 Flow Rate FiO2 03/11/17 09:00 Room Air 03/11/17 02:00 97.4 74 18 121/75 (90) 94 Capillary Refill : I&O Intake and Output 03/10/17 23:59 Intake Total 800 ml Output Total 300 ml Balance 500 ml Intake Oral 800 ml Output Urine Total 300 ml # Voids 3 General: Alert, Oriented X3, Cooperative, No Acute Distress HEENT: Atraumatic, PERRLA, EOMI, Mucous Memb Moist/[place] Neck: Supple, No JVD Lungs: Clear to Auscultation Heart: Regular Rate Abdomen: Normal Bowel Sounds, Soft, No Tenderness Extremities: No Edema Neuro: Other (Left LE flaccid with trace return LUE) Psych/Mental Status: Mental Status NL Results Lab Laboratory Tests 03/08/17 20:17: Glucometer 124H 03/09/17 04:19: Glucometer 127H 03/09/17 06:05: White Blood Count 7.8, Red Blood Count 5.08, Hemoglobin 15.5, Hematocrit 44, Mean Corpuscular Volume 87, Mean Corpuscular Hemoglobin 31, Mean Corpuscular Hemoglobin Concent 35, Red Cell Distribution Width 13.9, Platelet Count 193, Mean Platelet Volume 10.2, Sodium Level 137, Potassium Level 4.7, Chloride Level 105, Carbon Dioxide Level 21, Anion Gap 11, Blood Urea Nitrogen 27H, Creatinine 0.82, Estimat Glomerular Filtration Rate > 60, BUN/Creatinine Ratio 33, Glucose Level 133H, Calcium Level 9.1, Total Bilirubin 0.9, Aspartate Amino Transf (AST/SGOT) 21, Alanine Aminotransferase (ALT/SGPT) 19, Alkaline Phosphatase 99, Total Protein 7.0, Albumin 3.9 03/09/17 16:09: Glucometer 143H 03/10/17 05:08: Glucometer 123H 03/11/17 04:52: Glucometer 121H Assessment/Plan Assessment Rt MCA CVA with Left HP HTN controlled DM2 controlled Tobacco abuse declines Patch 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 GERD without espohagitis AAA without rupture Plan Continue PT/OT ST has assessed and signed off Decreased Accucheks as per above-stable Team Conference held yesterday-see report for full functional update and POC and ELOS Patient requests Pet pass-see orders Patient has 2 sons and a daughter in this area to help out upon discharge NNEKA MARTIN MD Mar 11, 2017 15:22
[2017-03-11 18:00] VITALS: BP 121/72
[2017-03-11] MEDS: ATORVASTATIN 40 MG (LIPITOR) TABLET PO SCH (20:11)
[2017-03-12 04:34] VITALS: BP 123/78
[2017-03-12] MEDS: GLIMEPIRIDE 2 MG (AMARYL) TAB PO SCH (06:30)
[2017-03-12] MEDS: metFORMIN 500 MG (GLUCOPHAGE) TAB PO SCH ×2 (06:30→17:01)
[2017-03-12] MEDS ORDERED: ONDANSETRON 4 MG/2 ML (SDV) Z0FRAN IVP PRN (07:45)
--- NOTE | 2017-03-12 07:48 | Occupational Ther Daily Note ---
OT Current Status-Daily Note Subjective Pt alert, lying in bed. Pt c/o of nausea, reported to nrsg. Nrsg stated that he has felt nauseous throughout medical management trainer and had diarrhea 1 x. Pt did not eat breakfast today. Physician and nrsg notified. Mental Status/Objective Patient Orientation: Person, Place, Time, Situation Functional [place] Measure 0=Not Assessed/NA 4=Minimal Assistance 1=Total Assistance 5=Supervision or Setup 2=Maximal Assistance 6=Modified [place] 3=Moderate Assistance 7=Complete [place] ADL-Treatment Functional [place] Measure 0=Not Assessed/NA 4=Minimal Assistance 1=Total Assistance 5=Supervision or Setup 2=Maximal Assistance 6=Modified [place] 3=Moderate Assistance 7=Complete IndependenceIRFPAI Quality Coding Scale 6 Independent with activity with or without an assistive device 5 Patient requires set up or clean up by helper. Patient completes activity by themselves 4 Supervision or touching assist (CGA). [place] provide cues , steadying assist 3 The helper provides less than half the effort to complete the activity 2 The helper provides more than half the effort to complete the activity 1 Dependent. The helper does all the effort to complete an activity 7 Patient refused to complete or attempt activity 9 The patient did not perform the activity before the current illness or injury 88 Not attempted due to Medical conditions or safety concerns Other Treatment Pt completed diagonal patterns with L UE APROM working on crossing midline and functional movement for daily tasks. PROM and stretch to L UE, tightness with L elbow/arm extension noted. Dowel paige exercises completed with L hand attached to dowel working on B UE AROM. Pt completed 3 sets 5 reps of each exercise. Pt c/o nausea increasing, reported to nrsg. Call light/phone in reach. All needs met in room. OT Short Term Goals Short Term Goals Time Frame: Mar 22, 2017 Grooming(FIM): 5 Bathing(FIM): 4 Toileting(FIM): 3 Toilet/Commode Transfer(FIM): 4 Additional Short Term Goals: 2-Verbalize Understanding, 3-ImproveStrength/[place]urt[place] 1=Demonstrate adherence to instructed precautions during ADL tasks. 2=Patient will verbalize/demonstrate understanding of assistive devices/ modifications for ADL. 3=Patient will improve strength/tolerance for activity to enable patient to perform ADL's. OT Intermediate Goals Intermediate Goals Time Frame: Apr 05, 2017 Eating (FIM): 6 Eating (QC): 6 Groomin Oral Hygiene (QC): 6 Bathing(FIM): 5 Shower/Bathe Self (QC): 5 Upper Body Dressing(FIM): 6 Upper Body Dressing (QC): 6 Lower Body Dressing(FIM): 5 Lower Body Dressing (QC): 5 On/Off Footwear (QC): 5 Toileting(FIM): 5 Toileting Hygiene (QC): 5 Toilet/Commode Transfer(FIM): 5 Toilet/Commode Transfer (QC): 5 Shower Transfer(FIM): 5 Additional Goals: 2-Verbalize Understanding, 3-ImproveStrength/Curtis 1=Demonstrate adherence to instructed precautions during ADL tasks. 2=Patient will verbalize/demonstrate understanding of assistive devices/ modifications for ADL. 3=Patient will improve strength/tolerance for activity to enable patient to perform ADL's. OT Education/Plan Problem List/Assessment Pt would benefit from skilled OT to increase his independence in basic self care and to decrease caregiver burden. Discharge Recommendations Plan/Recommendations: Continue POC Treatment Plan/Plan of Care Patient would benefit from OT for education, treatment and training to promote independence in ADL's, mobility, safety and/or upper extremity function for ADL' s. Plan of Care: ADL Retraining, Functional Mobility, Group Exercise/Act as Ind ( educaiton, exercise, activity tolerance, functional acitivites, socialization), UE Funct Exercise/Act, UE Neuromus Re-Ed/Coord, W/C Management Training Treatment Duration: Apr 05, 2017 Frequency: At least 5 of 7 days/Wk (IRF) Estimated Hrs Per Day: 1.5 hours per day Agreement: Yes Rehab Potential: Good Time/GCodes Start Time: 07:00 Stop Time: 07:45 Total Time Billed (hr/min): 45 Billed Treatment Time 1 visit-NM 3 (45 min) AARTI STARR Mar 12, 2017 07:48
[2017-03-12] MEDS: ONDANSETRON 4 MG (ZOFRAN) ORAL DISSOLVE TAB PO PRN (07:57)
--- NOTE | 2017-03-12 08:04 | PM & R (SOAP) Progress Note ---
Subjective Time Seen by Provider: 07:35 Subjective/Events-last exam Patient was seen in his room this AM Patient Min assist for transfers. Patient c /o nausea Discussed with RN Javier ordered Prn Objective Exam Last Set of Vital Signs Vital Signs Date Time Temp Pulse Resp B/P (MAP) Pulse Ox O2 Delivery O2 Flow Rate FiO2 03/12/17 04:34 98.5 73 18 123/78 (93) 97 Room Air Capillary Refill : I&O Intake and Output 03/12/17 00:00 Intake Total 1200 ml Output Total 700 ml Balance 500 ml Intake Oral 1200 ml Output Urine Total 700 ml # Voids 4 # Bowel Movements 1 General: Alert, Oriented X3, Cooperative, No Acute Distress HEENT: Atraumatic, PERRLA, EOMI, Mucous Memb Moist/[place] Neck: Supple, No JVD Lungs: Clear to Auscultation Heart: Regular Rate Abdomen: Normal Bowel Sounds, Soft, No Tenderness Extremities: No Edema Neuro: Other (Left LE flaccid with trace return LUE) Psych/Mental Status: Mental Status NL Results Lab Laboratory Tests 03/09/17 16:09: Glucometer 143H 03/10/17 05:08: Glucometer 123H 03/11/17 04:52: Glucometer 121H 03/12/17 05:10: Glucometer 124H Assessment/Plan Assessment Rt MCA CVA with Left HP HTN controlled DM2 controlled Tobacco abuse declines Patch 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 GERD without espohagitis AAA without rupture Mild nausea-Zofran ordered prn Plan Continue PT/OT ST has assessed and signed off Decreased Accucheks as per above-stable Team Conference held 03-10-17-see report for full functional update and POC and ELOS Patient requests Pet pass-see orders Patient has 2 sons and a daughter in this area to help out upon discharge Zofran for nausea Current meds reviewed Accucheks noted NNEKA MARTIN MD Mar 12, 2017 08:04
--- NOTE | 2017-03-12 08:07 | Progress Note (SOAP) ---
Subjective Time Seen by Provider: 08:05 Subjective/Events-last exam patient had upset stomach last night took Zofran. cVA on left. Patient able to move left upper and lower extremities to some extent Objective Exam Vital Signs Date Time Temp Pulse Resp B/P (MAP) Pulse Ox O2 Delivery O2 Flow Rate FiO2 03/12/17 04:34 98.5 73 18 123/78 (93) 97 Room Air 03/11/17 21:25 Room Air 03/11/17 18:00 97.0 72 18 121/72 (88) 97 Room Air 03/11/17 09:00 Room Air I & O 03/12/17 07:00 Intake Total 1160 ml Balance 1160 ml Capillary Refill : General Appearance: No Apparent Distress, WD/WN Results Lab Laboratory Tests 03/12/17 05:10: Glucometer 124H Assessment/Plan Assessment/Plan Assess & Plan/Chief Complaint CVA on left. Hypertension. Hyperlipidemia. Tobacco usage. Abdominal aortic aneurysm. GERD . 03/10/17. 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 Hypertension. Hyperlipidemia. Tobacco usage. Patient working hard and moving left arm today. . 03/11/17. 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 Hypertension. Hyperlipidemia. Tobacco usage. Patient working hard and improving. . 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 Hypertension. Hyperlipidemia Tobacco usage. Patient stomach doing better Clinical Quality Measures DVT/VTE Risk/Contraindication: Risk Factor Score Per Nursin RFS Level Per Nursing on Admit: 4+=Very High JAIME ROBERSON DO Mar 12, 2017 08:07
[2017-03-12] MEDS: CLOPIDOGREL 75 MG (PLAVIX) TABLET PO SCH (09:00)
[2017-03-12] MEDS: lisINopril 10 MG (PRINIVIL) TABLET PO SCH (09:00)
--- NOTE | 2017-03-12 11:30 | Occupational Ther Daily Note ---
OT Current Status-Daily Note Subjective Pt alert, sitting in w/c. Pt states that his nausea is better, but still doesn' t feel the best. Agreed to therapy. Mental Status/Objective Patient Orientation: Person, Place, Time Functional [place] Measure 0=Not Assessed/NA 4=Minimal Assistance 1=Total Assistance 5=Supervision or Setup 2=Maximal Assistance 6=Modified [place] 3=Moderate Assistance 7=Complete [place] ADL-Treatment Functional [place] Measure 0=Not Assessed/NA 4=Minimal Assistance 1=Total Assistance 5=Supervision or Setup 2=Maximal Assistance 6=Modified [place] 3=Moderate Assistance 7=Complete IndependenceIRFPAI Quality Coding Scale 6 Independent with activity with or without an assistive device 5 Patient requires set up or clean up by helper. Patient completes activity by themselves 4 Supervision or touching assist (CGA). [place] provide cues , steadying assist 3 The helper provides less than half the effort to complete the activity 2 The helper provides more than half the effort to complete the activity 1 Dependent. The helper does all the effort to complete an activity 7 Patient refused to complete or attempt activity 9 The patient did not perform the activity before the current illness or injury 88 Not attempted due to Medical conditions or safety concerns Other Treatment Pt maneuvered w/c to therapy gym. Pt completed arm bike for 8 min at 10 spaulding resistance with B UE then 2 minutes with L UE no resistance to increase strength and APROM LUE. Pt required assist to fully rotate arm bike when using only L UE. Pt able to pull towards self then assist to push away. Pt then completed pinch task with L hand, assist to place item in L pincer grasp and direct arm to designated area. Pt able to sustain pinch and then release in correct area. Pt then stated that he was becoming nauseous again and wanted to finish task then go back to bed. Pt was mod A to transfer back to bed and scooted up in bed by self using HOB to pull self and R LE to push self. After therapy, nrsg notified that pt did not feel well. Call light/phone in reach. All needs met in room. OT Short Term Goals Short Term Goals Time Frame: Mar 22, 2017 Grooming(FIM): 5 Bathing(FIM): 4 Toileting(FIM): 3 Toilet/Commode Transfer(FIM): 4 Additional Short Term Goals: 2-Verbalize Understanding, 3-ImproveStrength/[place]urt[place] 1=Demonstrate adherence to instructed precautions during ADL tasks. 2=Patient will verbalize/demonstrate understanding of assistive devices/ modifications for ADL. 3=Patient will improve strength/tolerance for activity to enable patient to perform ADL's. OT Shelter Goals [place] Goals Time Frame: Apr 05, 2017 Eating (FIM): 6 Eating (QC): 6 Groomin Oral Hygiene (QC): 6 Bathing(FIM): 5 Shower/Bathe Self (QC): 5 Upper Body Dressing(FIM): 6 Upper Body Dressing (QC): 6 Lower Body Dressing(FIM): 5 Lower Body Dressing (QC): 5 On/Off Footwear (QC): 5 Toileting(FIM): 5 Toileting Hygiene (QC): 5 Toilet/Commode Transfer(FIM): 5 Toilet/Commode Transfer (QC): 5 Shower Transfer(FIM): 5 Additional Goals: 2-Verbalize Understanding, 3-ImproveStrength/Curtis 1=Demonstrate adherence to instructed precautions during ADL tasks. 2=Patient will verbalize/demonstrate understanding of assistive devices/ modifications for ADL. 3=Patient will improve strength/tolerance for activity to enable patient to perform ADL's. OT Education/Plan Problem List/Assessment Pt would benefit from skilled OT to increase his independence in basic self care and to decrease caregiver burden. Discharge Recommendations Plan/Recommendations: Continue POC Treatment Plan/Plan of Care Patient would benefit from OT for education, treatment and training to promote independence in ADL's, mobility, safety and/or upper extremity function for ADL' s. Plan of Care: ADL Retraining, Functional Mobility, Group Exercise/Act as Ind ( educaiton, exercise, activity tolerance, functional acitivites, socialization), UE Funct Exercise/Act, UE Neuromus Re-Ed/Coord, W/C Management Training Treatment Duration: Apr 05, 2017 Frequency: At least 5 of 7 days/Wk (IRF) Estimated Hrs Per Day: 1.5 hours per day Agreement: Yes Rehab Potential: Good Time/GCodes Start Time: 10:45 Stop Time: 11:30 Total Time Billed (hr/min): 45 Billed Treatment Time 1 visit-NM 3 (45 min) AARTI STARR Mar 12, 2017 11:30
--- NOTE | 2017-03-12 12:17 | Physical Therapy Daily Note ---
PT Daily Note-Current Subjective Pt is laying pre tx with complaints of nausea. Pt agrees to PT. Pain Numeric Pain Scale: 0-No Pain Appearance Pt is sitting in [facility] post tx with no complaints of nausea. Phone, tray, and nurse call are within reach. Mental Status Patient Orientation: Normal For Age cervical collar Transfers Functional [place] Measure 0=Not Assessed/NA 4=Minimal Assistance 1=Total Assistance 5=Supervision or Setup 2=Maximal Assistance 6=Modified [place] 3=Moderate Assistance 7=Complete IndependenceIRFPAI Quality Coding Scale 6 Independent with activity with or without an assistive device 5 Patient requires set up or clean up by helper. Patient completes activity by themselves 4 Supervision or touching assist (CGA). [place] provide cues , steadying assist 3 The helper provides less than half the effort to complete the activity 2 The helper provides more than half the effort to complete the activity 1 Dependent. The helper does all the effort to complete an activity 7 Patient refused to complete or attempt activity 9 The patient did not perform the activity before the current illness or injury 88 Not attempted due to Medical conditions or safety concerns Transfers (B, C, W/C) (FIM): 3 Scootin Rollin Supine to/from Sit: 4 Sit to/from Stand: 3 Bed to/from Chair: 3 Mod A required for sit to stand transfer. Weight Bearing Right Lower Extremity: Right Full Weight Bearing Left Lower Extremity: Left Full Weight Bearing Gait Training Does the Patient Walk?: Yes Due to nausea, pt did not walk during tx. Wheelchair Training Does the Pt Use a Wheelchair?: Yes Wheelchair (FIM): 2 Distance: 100 feet x2 Wheelchair Level of Assist: 6 Type of Wheelchair: Manual Exercises Supine Ex: Bridging (10 x2), Hip abd/add (10 x2 BLE) NuStep Minutes: 15 NuStep Workload: 3 Treatments Pt performed bed mobility, [facility] mobility, LE exercises. Assessment Current Status: Fair Progress Pt is able to actively move the LLE in order to perform LE exercises such as bridging and hip adduction in supine. Improving strength. PT Short Term Goals Short Term Goals Time Frame: Mar 22, 2017 Gait (FIM): 2 Distance (FIM): 1=up to 49 ft Gait Assistive Device: Walker [place] Wheelchair (FIM): 6 Wheelchair distance (FIM): 3=150 ft Wheelchair Distance: 150 feet PT Detention Goals Four Slide Machine Setter Goals PT Detention Goals Time Frame: Apr 05, 2017 Transfers (B,C,W/C) (FIM): 6 Sit to Lying (QC): 6 Lying-Sitting on Side/Bed(QC): 6 Sit to Stand (QC): 6 Rollin Roll Left to Right (QC): 6 Chair/Aus-gv-Pydqf Xfer(QC): 6 Car Transfer (QC): 5 Does the Patient Walk: No and Walking Goal IS indicated Gait (FIM): 5 Gait distance (FIM): 3=150 ft Walk 10 feet (QC): 5 Walk 10ft-Uneven Surface(QC): 5 Walk 50ft with 2 Turns (QC): 5 Walk 150 ft (QC): 5 Gait Level of Assist: 5 Gait Assistive Device: [place] Does the Pt use WC or Scooter?: Yes Wheelchair (FIM): 6 Wheelchair distance (FIM): 3=150 ft Wheel 50 feet with 2 turns (QC: 6 Stairs (FIM): 2 # of Steps: 4 1 Step (curb) (QC): 4 4 Steps (QC): 4 12 Steps (QC): 88 Picking up an Object (QC): 88 PT Plan Problem List Problem List: Activity Tolerance, Functional Strength, Safety, Balance, Gait, Transfer, Bed Mobility, ROM Treatment/Plan Treatment Plan: Continue Plan of Care Treatment Plan: Bed Mobility, Education, Functional Activity [place], Functional Strength, Group Therapy, Gait, Safety, Therapeutic Exercise, Transfers Treatment Duration: Apr 05, 2017 Frequency: At least 5 of 7 days/Wk (IRF) Estimated Hrs Per Day: 1.5 hours per day Patient and/or Family Agrees t: Yes Safety Risks/Education Patient Education: Transfer Techniques, Correct Positioning, W/C Management, Safety Issues Teaching Recipient: Patient Teaching Methods: Demonstration, Discussion Response to Teaching: Reinforcement Needed Time/GCodes Time In: 900 Time Out: 1000 Total Billed Treatment Time: 60 Total Billed Treatment 1 visit 35 min EX 15 min FA 10 min MARJ BABCOCK PT Mar 12, 2017 12:17
--- NOTE | 2017-03-12 15:16 | Physical Therapy Daily Note ---
PT Daily Note-Current Subjective Pt. in bed. States he feels better than he did earlier, agrees to rx. Pain Numeric Pain Scale: 0-No Pain Mental Status Patient Orientation: Normal For Age Transfers Functional [place] Measure 0=Not Assessed/NA 4=Minimal Assistance 1=Total Assistance 5=Supervision or Setup 2=Maximal Assistance 6=Modified [place] 3=Moderate Assistance 7=Complete IndependenceIRFPAI Quality Coding Scale 6 Independent with activity with or without an assistive device 5 Patient requires set up or clean up by helper. Patient completes activity by themselves 4 Supervision or touching assist (CGA). [place] provide cues , steadying assist 3 The helper provides less than half the effort to complete the activity 2 The helper provides more than half the effort to complete the activity 1 Dependent. The helper does all the effort to complete an activity 7 Patient refused to complete or attempt activity 9 The patient did not perform the activity before the current illness or injury 88 Not attempted due to Medical conditions or safety concerns sup to sit and sit to stand all mod assist. Weight Bearing Right Lower Extremity: Right Full Weight Bearing Left Lower Extremity: Left Full Weight Bearing Gait Training side stepping to left 5-6 steps in dance fashion mod assist at EOB Exercises Supine Ex: Bridging, Ankle pumps (L HC stretch), Quad Set (L poor), Rolling, Glut sets, Heel Slides (asist left), Scooting, Straight leg raise (assist left) , Hip abd/add (ssist left) Supine Reps: 12 Seated Therapy Exercises: Long arc quads (ssist left), Hip flexion (ssist left) Seated Reps: 12 Treatments sat EOB for balance and funct training 6 mins, sit to stands and side step then sit to supine mod assist LLE Assessment Current Status: Good Progress PT Short Term Goals Short Term Goals Time Frame: Mar 22, 2017 Gait (FIM): 2 Distance (FIM): 1=up to 49 ft Gait Assistive Device: [place] Wheelchair (FIM): 6 Wheelchair distance (FIM): 3=150 ft Wheelchair Distance: 100 feet x2 PT Lumber Bearer Goals Skilled Nursing Goals PT Lumber Be[place] Goals Time Frame: Apr 05, 2017 Transfers (B,C,W/C) (FIM): 6 Sit to Lying (QC): 6 Lying-Sitting on Side/Bed(QC): 6 Sit to Stand (QC): 6 Rollin Roll Left to Right (QC): 6 Chair/Sdu-wh-Jslsk Xfer(QC): 6 Car Transfer (QC): 5 Does the Patient Walk: No and Walking Goal IS indicated Gait (FIM): 5 Gait distance (FIM): 3=150 ft Walk 10 feet (QC): 5 Walk 10ft-Uneven Surface(QC): 5 Walk 50ft with 2 Turns (QC): 5 Walk 150 ft (QC): 5 Gait Level of Assist: 5 Gait Assistive Device: [place] Does the Pt use WC or Scooter?: Yes Wheelchair (FIM): 6 Wheelchair distance (FIM): 3=150 ft Wheel 50 feet with 2 turns (QC: 6 Stairs (FIM): 2 # of Steps: 4 1 Step (curb) (QC): 4 4 Steps (QC): 4 12 Steps (QC): 88 Picking up an Object (QC): 88 PT Plan Treatment/Plan Treatment Plan: Continue Plan of Care Treatment Plan: Bed Mobility, Education, Functional Activity [place], Functional Strength, Group Therapy, Gait, Safety, Therapeutic Exercise, Transfers Treatment Duration: Apr 05, 2017 Frequency: At least 5 of 7 days/Wk (IRF) Estimated Hrs Per Day: 1.5 hours per day Patient and/or Family Agrees t: Yes Safety Risks/Education Patient Education: Transfer Techniques, Correct Positioning, Disease Process, Safety Issues Teaching Recipient: Patient Teaching Methods: Demonstration, Discussion Response to Teaching: Verbalize Understanding, Return Demonstration, Reinforcement Needed Time/GCodes Time In: 1445 Time Out: 1515 Total Billed Treatment Time: 30 Total Billed Treatment 1,EX15,FA15 G Codes Necessary: JONG Mcfarland REVENUE OFFICER Mar 12, 2017 15:16
[2017-03-12 17:42] VITALS: BP 121/81
[2017-03-12] MEDS: ATORVASTATIN 40 MG (LIPITOR) TABLET PO SCH (21:00)
[2017-03-13 04:41] VITALS: BP 115/68
[2017-03-13] MEDS: GLIMEPIRIDE 2 MG (AMARYL) TAB PO SCH (06:12)
[2017-03-13] MEDS: metFORMIN 500 MG (GLUCOPHAGE) TAB PO SCH ×2 (06:12→16:27)
[2017-03-13] MEDS: CLOPIDOGREL 75 MG (PLAVIX) TABLET PO SCH (08:33)
[2017-03-13] MEDS: lisINopril 10 MG (PRINIVIL) TABLET PO SCH (08:33)
--- NOTE | 2017-03-13 10:25 | Physical Therapy Daily Note ---
PT Daily Note-Current Subjective Patient is in recliner and agrees to PT. Pain Numeric Pain Scale: 0-No Pain Location: No Pain Reported Mental Status Patient Orientation: Normal For Age Transfers Functional [place] Measure 0=Not Assessed/NA 4=Minimal Assistance 1=Total Assistance 5=Supervision or Setup 2=Maximal Assistance 6=Modified [place] 3=Moderate Assistance 7=Complete IndependenceIRFPAI Quality Coding Scale 6 Independent with activity with or without an assistive device 5 Patient requires set up or clean up by helper. Patient completes activity by themselves 4 Supervision or touching assist (CGA). [place] provide cues , steadying assist 3 The helper provides less than half the effort to complete the activity 2 The helper provides more than half the effort to complete the activity 1 Dependent. The helper does all the effort to complete an activity 7 Patient refused to complete or attempt activity 9 The patient did not perform the activity before the current illness or injury 88 Not attempted due to Medical conditions or safety concerns Transfers (B, C, W/C) (FIM): 2 Scootin Sit to/from Stand: 2 Sit to Stand (QC): 2 Chair/Jth-jv-Rsoyj Xfer(QC): 2 Bed to/from Chair: 2 Patient performed sit to stand and SPT x 3 sets with max assist to right. Patient reports extreme fatigue on this date. Weight Bearing Right Lower Extremity: Right Full Weight Bearing Left Lower Extremity: Left Full Weight Bearing Wheelchair Training Does the Pt Use a Wheelchair?: Yes Wheelchair (FIM): 4 Wheelchair Distance: 3=150 ft Distance: >500' x 2 Wheelchair Level of Assist: 4 Wheel 50 ft with 2 turns (QC): 4 Wheel 150 ft (QC): 4 Type of Wheelchair: Manual inside and outside on sidewalk and up ramp Assessment Patient progressing with treatment plan. PT will continue to increase activity as tolerated by patient. PT Short Term Goals Short Term Goals Time Frame: Mar 22, 2017 Gait (FIM): 2 Distance (FIM): 1=up to 49 ft Gait Assistive Device: Walker [place] Wheelchair (FIM): 6 Wheelchair distance (FIM): 3=150 ft Wheelchair Distance: 100 feet x2 PT [employer] Goals Prison Goals PT Prison Goals Time Frame: Apr 05, 2017 Transfers (B,C,W/C) (FIM): 6 Sit to Lying (QC): 6 Lying-Sitting on Side/Bed(QC): 6 Sit to Stand (QC): 6 Rollin Roll Left to Right (QC): 6 Chair/Jah-eb-Nxdfd Xfer(QC): 6 Car Transfer (QC): 5 Does the Patient Walk: No and Walking Goal IS indicated Gait (FIM): 5 Gait distance (FIM): 3=150 ft Walk 10 feet (QC): 5 Walk 10ft-Uneven Surface(QC): 5 Walk 50ft with 2 Turns (QC): 5 Walk 150 ft (QC): 5 Gait Level of Assist: 5 Gait Assistive Device: Walker [place] Does the Pt use WC or Scooter?: Yes Wheelchair (FIM): 6 Wheelchair distance (FIM): 3=150 ft Wheel 50 feet with 2 turns (QC: 6 Stairs (FIM): 2 # of Steps: 4 1 Step (curb) (QC): 4 4 Steps (QC): 4 12 Steps (QC): 88 Picking up an Object (QC): 88 PT Plan Treatment/Plan Treatment Plan: Continue Plan of Care Treatment Plan: Bed Mobility, Education, Functional Activity Curtis, Functional Strength, Group Therapy, Gait, Safety, Therapeutic Exercise, Transfers Treatment Duration: Apr 05, 2017 Frequency: At least 5 of 7 days/Wk (IRF) Estimated Hrs Per Day: 1.5 hours per day Patient and/or Family Agrees t: Yes Time/GCodes Time In: 940 Time Out: 1010 Total Billed Treatment Time: 30 Total Billed Treatment 1 visit FA 10 min [facility] 20 min EDMUNDO HENSON PT Mar 13, 2017 10:25
[2017-03-13] MEDS ORDERED: ACETAMINOPHEN 500 MG TAB (TYLENOL) PO PRN (14:30)
[2017-03-13] MEDS: ACETAMINOPHEN 325 MG TABLET/CAPLET (TYLENOL) PO PRN (14:38)
[2017-03-13 17:41] VITALS: BP 116/71
[2017-03-13] MEDS: ATORVASTATIN 40 MG (LIPITOR) TABLET PO SCH (21:12)
[2017-03-14 05:04] VITALS: BP 131/76
[2017-03-14] MEDS: metFORMIN 500 MG (GLUCOPHAGE) TAB PO SCH ×2 (06:47→17:13)
[2017-03-14] MEDS: GLIMEPIRIDE 2 MG (AMARYL) TAB PO SCH (06:47)
[2017-03-14] MEDS: lisINopril 10 MG (PRINIVIL) TABLET PO SCH (08:37)
[2017-03-14] MEDS: CLOPIDOGREL 75 MG (PLAVIX) TABLET PO SCH (08:37)
[2017-03-14] MEDS: ONDANSETRON 4 MG (ZOFRAN) ORAL DISSOLVE TAB PO PRN (17:13)
[2017-03-14 17:20] VITALS: BP 127/79
[2017-03-14] MEDS: ATORVASTATIN 40 MG (LIPITOR) TABLET PO SCH (20:25)
[2017-03-15 04:25] VITALS: BP 135/86
[2017-03-15] MEDS: metFORMIN 500 MG (GLUCOPHAGE) TAB PO SCH ×2 (06:11→16:18)
[2017-03-15] MEDS: GLIMEPIRIDE 2 MG (AMARYL) TAB PO SCH (06:11)
--- NOTE | 2017-03-15 08:33 | Progress Note (SOAP) ---
Subjective Time Seen by Provider: 08:30 Subjective/Events-last exam stomach upset. Patient feels nausea eating. Patient had bowel movement the other day to give Zofran cvxjws-srf-varrk. X-ray of abdomen feels constipated Objective Exam Vital Signs Date Time Temp Pulse Resp B/P (MAP) Pulse Ox O2 Delivery O2 Flow Rate FiO2 03/15/17 04:25 96.9 82 18 135/86 (102) 96 Room Air 03/14/17 20:20 Room Air 03/14/17 17:20 97.9 82 18 127/79 (95) 95 Room Air 03/14/17 08:57 Room Air I & O 03/15/17 07:00 Intake Total 1177 ml Output Total 950 ml Balance 227 ml Capillary Refill : Less Than 3 Seconds General Appearance: No Apparent Distress, WD/WN Results Lab Laboratory Tests 03/14/17 16:21: Glucometer 102 03/15/17 05:46: Glucometer 133H Assessment/Plan Assessment/Plan Assess & Plan/Chief Complaint 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 Hypertension. Hyperlipidemia. Tobacco usage. Abdominal aortic aneurysm. GERD . 03/10/17. 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 Hypertension. Hyperlipidemia. Tobacco usage. Patient working hard and moving left arm today. . 03/11/17. 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 Hypertension. Hyperlipidemia. Tobacco usage. Patient working hard and improving. . 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 Hypertension. Hyperlipidemia Tobacco usage. Patient stomach doing better . 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 nauseous. Hypertension. Hyperlipidemia. Tobacco usage Clinical Quality Measures DVT/VTE Risk/Contraindication: Risk Factor Score Per Nursin RFS Level Per Nursing on Admit: 4+=Very High JAIME ROBERSON DO Mar 15, 2017 08:33
[2017-03-15] MEDS: ONDANSETRON 4 MG (ZOFRAN) ORAL DISSOLVE TAB PO PRN (08:37)
[2017-03-15] MEDS: CLOPIDOGREL 75 MG (PLAVIX) TABLET PO SCH (08:37)
[2017-03-15] MEDS: lisINopril 10 MG (PRINIVIL) TABLET PO SCH (08:37)
--- NOTE | 2017-03-15 10:13 | Diagnostic Imaging Report ---
INDICATION: Nausea. Time of exam: 10:04 AM There is mild gaseous distention of small and large bowel loops, nonspecific. No bowel wall thickening or pneumatosis is identified. No definite free air is identified. No abdominal calcifications are seen. IMPRESSION: Nonspecific mild gaseous distention of small and large bowel loops, perhaps owing to ileus. No other abnormality seen. Dictated by: Dictated on workstation # [id number]
--- NOTE | 2017-03-15 11:20 | Occupational Ther Daily Note ---
OT Current Status-Daily Note Subjective Pt alert, sitting on EOB. Son present in room. Pt agreed to therapy. No c/o pain at this time. Mental Status/Objective Patient Orientation: Person, Place, Time, Situation Functional [place] Measure 0=Not Assessed/NA 4=Minimal Assistance 1=Total Assistance 5=Supervision or Setup 2=Maximal Assistance 6=Modified [place] 3=Moderate Assistance 7=Complete [place] ADL-Treatment Pt transferred with mod A from EOB to w/c. Maneuvered w/c from room to large shower room by self. Pt then pulled to stand and stood holding onto grabbar with min A. Pt completed shower sitting on shower chair with cutout by self using grabbar, hand held shower and long handle sponge with supervision. Pt is able to reach to feet while sitting without balance breaks. Pt then was transported to pt's bathroom to complete grooming by self. Assist to hike pants down over hips then assist to doff over L foot, doffs by self over R foot. Min A to don pants over L foot, able to don over R foot. Min A to pull to stand then mod A to stand as pt hiked pants over R hip and assist for L hip. Assist pt in donning socks, shoes and shirt. After therapy, pt sitting in recliner with call light/phone in reach. Son present in room. All needs met in room. Functional [place] Measure 0=Not Assessed/NA 4=Minimal Assistance 1=Total Assistance 5=Supervision or Setup 2=Maximal Assistance 6=Modified [place] 3=Moderate Assistance 7=Complete IndependenceIRFPAI Quality Coding Scale 6 Independent with activity with or without an assistive device 5 Patient requires set up or clean up by helper. Patient completes activity by themselves 4 Supervision or touching assist (CGA). [place] provide cues , steadying assist 3 The helper provides less than half the effort to complete the activity 2 The helper provides more than half the effort to complete the activity 1 Dependent. The helper does all the effort to complete an activity 7 Patient refused to complete or attempt activity 9 The patient did not perform the activity before the current illness or injury 88 Not attempted due to Medical conditions or safety concerns Grooming (FIM): 6 Oral Hygiene (QC): 6 Bathing (FIM): 4 (Assist to dry back of legs.) Bathing Location: L Arm, R Arm, L Upper Leg, R Upper Leg, L Lower Leg ( including foot), R Lower Leg (including foot), Chest, Abdomen, Buttocks, Perineal Area Shower/Bathe Self (QC): 3 Upper Body (FIM): 3 Upper Body Dressing (QC): 3 Lower Body Dressing (FIM): 2 Lower Body Dressing (QC): 2 On/Off Footwear (QC): 2 OT Short Term Goals Short Term Goals Time Frame: Mar 22, 2017 Grooming(FIM): 5 Bathing(FIM): 4 Toileting(FIM): 3 Toilet/Commode Transfer(FIM): 4 Additional Short Term Goals: 2-Verbalize Understanding, 3-ImproveStrength/Curtis 1=Demonstrate adherence to instructed precautions during ADL tasks. 2=Patient will verbalize/demonstrate understanding of assistive devices/ modifications for ADL. 3=Patient will improve strength/tolerance for activity to enable patient to perform ADL's. OT Residential Goals Trains Service Conductor Goals Time Frame: Apr 05, 2017 Eating (FIM): 6 Eating (QC): 6 Groomin Oral Hygiene (QC): 6 Bathing(FIM): 5 Shower/Bathe Self (QC): 5 Upper Body Dressing(FIM): 6 Upper Body Dressing (QC): 6 Lower Body Dressing(FIM): 5 Lower Body Dressing (QC): 5 On/Off Footwear (QC): 5 Toileting(FIM): 5 Toileting Hygiene (QC): 5 Toilet/Commode Transfer(FIM): 5 Toilet/Commode Transfer (QC): 5 Shower Transfer(FIM): 5 Additional Goals: 2-Verbalize Understanding, 3-ImproveStrength/Curtis 1=Demonstrate adherence to instructed precautions during ADL tasks. 2=Patient will verbalize/demonstrate understanding of assistive devices/ modifications for ADL. 3=Patient will improve strength/tolerance for activity to enable patient to perform ADL's. OT Education/Plan Problem List/Assessment Pt would benefit from skilled OT to increase his independence in basic self care and to decrease caregiver burden. Discharge Recommendations Plan/Recommendations: Continue POC Treatment Plan/Plan of Care Patient would benefit from OT for education, treatment and training to promote independence in ADL's, mobility, safety and/or upper extremity function for ADL' s. Plan of Care: ADL Retraining, Functional Mobility, Group Exercise/Act as Ind ( educaiton, exercise, activity tolerance, functional acitivites, socialization), UE Funct Exercise/Act, UE Neuromus Re-Ed/Coord, W/C Management Training Treatment Duration: Apr 05, 2017 Frequency: At least 5 of 7 days/Wk (IRF) Estimated Hrs Per Day: 1.5 hours per day Agreement: Yes Rehab Potential: Good Time/GCodes Start Time: 07:00 Stop Time: 08:00 Total Time Billed (hr/min): 60 Billed Treatment Time 1 visit-ADL 4 (60 min) AARTI STARR Mar 15, 2017 11:20
--- NOTE | 2017-03-15 11:42 | Physical Therapy Daily Note ---
PT Daily Note-Current Subjective Pt is sitting in [facility] in therapy gym with no complaints of pain and agrees to PT. Pain Numeric Pain Scale: 0-No Pain Appearance Pt is laying in bed post tx with nurse call, remote, and tray within reach. Mental Status Patient Orientation: Normal For Age AFO on LLE during ambulation and LAQ Transfers Functional [place] Measure 0=Not Assessed/NA 4=Minimal Assistance 1=Total Assistance 5=Supervision or Setup 2=Maximal Assistance 6=Modified [place] 3=Moderate Assistance 7=Complete IndependenceIRFPAI Quality Coding Scale 6 Independent with activity with or without an assistive device 5 Patient requires set up or clean up by helper. Patient completes activity by themselves 4 Supervision or touching assist (CGA). [place] provide cues , steadying assist 3 The helper provides less than half the effort to complete the activity 2 The helper provides more than half the effort to complete the activity 1 Dependent. The helper does all the effort to complete an activity 7 Patient refused to complete or attempt activity 9 The patient did not perform the activity before the current illness or injury 88 Not attempted due to Medical conditions or safety concerns Transfers (B, C, W/C) (FIM): 4 Scootin Sit to/from Stand: 4 Min A required for sit to stand transfer and stand pivot, needs cues for positioning and hand placement. Weight Bearing Right Lower Extremity: Right Full Weight Bearing Left Lower Extremity: Left Full Weight Bearing Gait Training Does the Patient Walk?: Yes Gait (FIM): 1 Distance: 8 feet x4 Gait Level of Assist: 3 Gait Persons Needed: 1 Gait Assistive Device: Parallel Bars Left AFO, patient needs assist with advancing and keeping left leg abducted and with knee extension during step through on the right side and cues for positioning and weight shifting. Wheelchair Training Does the Pt Use a Wheelchair?: Yes Wheelchair (FIM): 2 Distance: 100 feet x1 Wheelchair Level of Assist: 5 Type of Wheelchair: Manual Exercises Seated Therapy Exercises: Long arc quads (20 x1 RLE) NuStep Minutes: 15 NuStep Workload: 5 Treatments Pt performed [facility] mobility, gait training, and LE exercises. Assessment Current Status: Fair Progress Pt ambulated in parallel bars with a carbon fiber AFO on the LLE. Pt requires assistance for weight shifting and foot placement. Verbal cues used as well. Post tx pt seems fatigued. Pt is walking more frequently without use of knee immobilizer. Has trouble with muscle contraction initiation on the left quad. PT Short Term Goals Short Term Goals Time Frame: Mar 22, 2017 Gait (FIM): 2 Distance (FIM): 1=up to 49 ft Gait Assistive Device: Walker Wale Wheelchair (FIM): 6 Wheelchair distance (FIM): 3=150 ft Wheelchair Distance: >500' x 2 PT Group Home Goals Veterinary Technology Instructor Goals PT Group Home Goals Time Frame: Apr 05, 2017 Transfers (B,C,W/C) (FIM): 6 Sit to Lying (QC): 6 Lying-Sitting on Side/Bed(QC): 6 Sit to Stand (QC): 6 Rollin Roll Left to Right (QC): 6 Chair/Waf-wf-Drqee Xfer(QC): 6 Car Transfer (QC): 5 Does the Patient Walk: No and Walking Goal IS indicated Gait (FIM): 5 Gait distance (FIM): 3=150 ft Walk 10 feet (QC): 5 Walk 10ft-Uneven Surface(QC): 5 Walk 50ft with 2 Turns (QC): 5 Walk 150 ft (QC): 5 Gait Level of Assist: 5 Gait Assistive Device: Walker [place] Does the Pt use WC or Scooter?: Yes Wheelchair (FIM): 6 Wheelchair distance (FIM): 3=150 ft Wheel 50 feet with 2 turns (QC: 6 Stairs (FIM): 2 # of Steps: 4 1 Step (curb) (QC): 4 4 Steps (QC): 4 12 Steps (QC): 88 Picking up an Object (QC): 88 PT Plan Problem List Problem List: Activity Tolerance, Functional Strength, Safety, Balance, Gait, Transfer, Bed Mobility, ROM Treatment/Plan Treatment Plan: Continue Plan of Care Treatment Plan: Bed Mobility, Education, Functional Activity Curtis, Functional Strength, Group Therapy, Gait, Safety, Therapeutic Exercise, Transfers Treatment Duration: Apr 05, 2017 Frequency: At least 5 of 7 days/Wk (IRF) Estimated Hrs Per Day: 1.5 hours per day Patient and/or Family Agrees t: Yes Safety Risks/Education Patient Education: Gait Training, Transfer Techniques, Correct Positioning, W/ C Management, Disease Process, Safety Issues Teaching Recipient: Patient Teaching Methods: Demonstration, Discussion Response to Teaching: Reinforcement Needed Time/GCodes Time In: 1100 Time Out: 1200 Total Billed Treatment Time: 60 Total Billed Treatment 1 visit 25 min GT 20 min FA 15 min EX MARJ FARIA PT Mar 15, 2017 11:42
--- NOTE | 2017-03-15 13:57 | Occupational Ther Daily Note ---
OT Current Status-Daily Note Subjective Pt alert, sitting in w/c. Pt agreed to therapy. Son in room. No c/o pain. Mental Status/Objective Patient Orientation: Person, Place, Time, Situation Functional [place] Measure 0=Not Assessed/NA 4=Minimal Assistance 1=Total Assistance 5=Supervision or Setup 2=Maximal Assistance 6=Modified [place] 3=Moderate Assistance 7=Complete [place] ADL-Treatment Functional [place] Measure 0=Not Assessed/NA 4=Minimal Assistance 1=Total Assistance 5=Supervision or Setup 2=Maximal Assistance 6=Modified [place] 3=Moderate Assistance 7=Complete IndependenceIRFPAI Quality Coding Scale 6 Independent with activity with or without an assistive device 5 Patient requires set up or clean up by helper. Patient completes activity by themselves 4 Supervision or touching assist (CGA). [place] provide cues , steadying assist 3 The helper provides less than half the effort to complete the activity 2 The helper provides more than half the effort to complete the activity 1 Dependent. The helper does all the effort to complete an activity 7 Patient refused to complete or attempt activity 9 The patient did not perform the activity before the current illness or injury 88 Not attempted due to Medical conditions or safety concerns Other Treatment Pt was able to maneuver w/c through [facility]. Pt still is working on manipulating components to position self appropriately in w/c. Pt then complete arm bike 8 min at 25 spaulding resistance rotating forward with BUE and 7 min rotating backward with BUE to increase strength and AROM (LUE) for daily functional tasks. Pt then worked on tip pinch with theraputty and beads. Positioning of bead so that pinch would be efficient. PT took over care of pt in therapy gym. All needs met. OT Short Term Goals Short Term Goals Time Frame: Mar 22, 2017 Grooming(FIM): 5 Bathing(FIM): 4 Toileting(FIM): 3 Toilet/Commode Transfer(FIM): 4 Additional Short Term Goals: 2-Verbalize Understanding, 3-ImproveStrength/Curtis 1=Demonstrate adherence to instructed precautions during ADL tasks. 2=Patient will verbalize/demonstrate understanding of assistive devices/ modifications for ADL. 3=Patient will improve strength/tolerance for activity to enable patient to perform ADL's. OT Management And Budget Analyst Goals Management And Budget Analyst Goals Time Frame: Apr 05, 2017 Eating (FIM): 6 Eating (QC): 6 Groomin Oral Hygiene (QC): 6 Bathing(FIM): 5 Shower/Bathe Self (QC): 5 Upper Body Dressing(FIM): 6 Upper Body Dressing (QC): 6 Lower Body Dressing(FIM): 5 Lower Body Dressing (QC): 5 On/Off Footwear (QC): 5 Toileting(FIM): 5 Toileting Hygiene (QC): 5 Toilet/Commode Transfer(FIM): 5 Toilet/Commode Transfer (QC): 5 Shower Transfer(FIM): 5 Additional Goals: 2-Verbalize Understanding, 3-ImproveStrength/Curtis 1=Demonstrate adherence to instructed precautions during ADL tasks. 2=Patient will verbalize/demonstrate understanding of assistive devices/ modifications for ADL. 3=Patient will improve strength/tolerance for activity to enable patient to perform ADL's. OT Education/Plan Problem List/Assessment Pt would benefit from skilled OT to increase his independence in basic self care and to decrease caregiver burden. Discharge Recommendations Plan/Recommendations: Continue POC Treatment Plan/Plan of Care Patient would benefit from OT for education, treatment and training to promote independence in ADL's, mobility, safety and/or upper extremity function for ADL' s. Plan of Care: ADL Retraining, Functional Mobility, Group Exercise/Act as Ind ( educaiton, exercise, activity tolerance, functional acitivites, socialization), UE Funct Exercise/Act, UE Neuromus Re-Ed/Coord, W/C Management Training Treatment Duration: Apr 05, 2017 Frequency: At least 5 of 7 days/Wk (IRF) Estimated Hrs Per Day: 1.5 hours per day Agreement: Yes Rehab Potential: Good Time/GCodes Start Time: 10:30 Stop Time: 11:00 Total Time Billed (hr/min): 30 Billed Treatment Time 1 visit-NM 2 (30 min) AARTI STARR Mar 15, 2017 13:57
--- NOTE | 2017-03-15 15:02 | Physical Therapy Daily Note ---
PT Daily Note-Current Subjective Pt is laying in bed pre tx and agrees to PT with no complaints of pain. Pain Numeric Pain Scale: 0-No Pain Appearance Pt is sitting on toilet post tx with nurse call light within reach. Mental Status Patient Orientation: Normal For Age Transfers Functional [place] Measure 0=Not Assessed/NA 4=Minimal Assistance 1=Total Assistance 5=Supervision or Setup 2=Maximal Assistance 6=Modified [place] 3=Moderate Assistance 7=Complete IndependenceIRFPAI Quality Coding Scale 6 Independent with activity with or without an assistive device 5 Patient requires set up or clean up by helper. Patient completes activity by themselves 4 Supervision or touching assist (CGA). [place] provide cues , steadying assist 3 The helper provides less than half the effort to complete the activity 2 The helper provides more than half the effort to complete the activity 1 Dependent. The helper does all the effort to complete an activity 7 Patient refused to complete or attempt activity 9 The patient did not perform the activity before the current illness or injury 88 Not attempted due to Medical conditions or safety concerns Transfers (B, C, W/C) (FIM): 4 Scootin Rollin Supine to/from Sit: 4 Sit to/from Stand: 4 Bed to/from Chair: 4 Min A required for supine to sit, sit to stand, and bed to chair transfers. Verbal cues needed for hand placement. Weight Bearing Right Lower Extremity: Right Full Weight Bearing Left Lower Extremity: Left Full Weight Bearing Gait Training Does the Patient Walk?: Yes Gait (FIM): 1 Distance: 8 feet x3 Gait Level of Assist: 3 Gait Persons Needed: 1 Gait Assistive Device: Parallel Bars Pt wears AFO on the LLE and leans to the L during ambulation due to weakness. Wheelchair Training Does the Pt Use a Wheelchair?: Yes Wheelchair (FIM): 5 Distance: 100 feet x2 Wheelchair Level of Assist: 5 Type of Wheelchair: Manual Treatments Pt performed bed mobility, gait training, and functional activity. Assessment Current Status: Good Progress Pt is beginning to bear weight on the LLE while walking. Pt requires manual and verbal cues for standing posture and ambulation. PT Short Term Goals Short Term Goals Time Frame: Mar 22, 2017 Gait (FIM): 2 Distance (FIM): 1=up to 49 ft Gait Assistive Device: Walker Wale Wheelchair (FIM): 6 Wheelchair distance (FIM): 3=150 ft Wheelchair Distance: 100 feet x1 PT Fpc Goals Fpc Goals PT Fpc Goals Time Frame: Apr 05, 2017 Transfers (B,C,W/C) (FIM): 6 Sit to Lying (QC): 6 Lying-Sitting on Side/Bed(QC): 6 Sit to Stand (QC): 6 Rollin Roll Left to Right (QC): 6 Chair/Xtk-es-Yapsw Xfer(QC): 6 Car Transfer (QC): 5 Does the Patient Walk: No and Walking Goal IS indicated Gait (FIM): 5 Gait distance (FIM): 3=150 ft Walk 10 feet (QC): 5 Walk 10ft-Uneven Surface(QC): 5 Walk 50ft with 2 Turns (QC): 5 Walk 150 ft (QC): 5 Gait Level of Assist: 5 Gait Assistive Device: [place] Does the Pt use WC or Scooter?: Yes Wheelchair (FIM): 6 Wheelchair distance (FIM): 3=150 ft Wheel 50 feet with 2 turns (QC: 6 Stairs (FIM): 2 # of Steps: 4 1 Step (curb) (QC): 4 4 Steps (QC): 4 12 Steps (QC): 88 Picking up an Object (QC): 88 PT Plan Problem List Problem List: Activity Tolerance, Functional Strength, Safety, Balance, Gait, Transfer, Bed Mobility, ROM Treatment/Plan Treatment Plan: Continue Plan of Care Treatment Plan: Bed Mobility, Education, Functional Activity Curtis, Functional Strength, Group Therapy, Gait, Safety, Therapeutic Exercise, Transfers Treatment Duration: Apr 05, 2017 Frequency: At least 5 of 7 days/Wk (IRF) Estimated Hrs Per Day: 1.5 hours per day Patient and/or Family Agrees t: Yes Safety Risks/Education Patient Education: Gait Training, Transfer Techniques, Correct Positioning, W/ C Management, Safety Issues Teaching Recipient: Patient Teaching Methods: Demonstration, Discussion Response to Teaching: Reinforcement Needed Time/GCodes Time In: 1400 Time Out: 1430 Total Billed Treatment Time: 30 Total Billed Treatment 1 visit 15 min GT 15 min FA AARTI TARIQ PT Mar 15, 2017 15:02
[2017-03-15] MEDS: ONDANSETRON 4 MG (ZOFRAN) ORAL DISSOLVE TAB PO SCH ×2 (15:35→16:18)
[2017-03-15 18:00] VITALS: BP 137/84
--- NOTE | 2017-03-15 19:25 | PM & R (SOAP) Progress Note ---
Subjective Time Seen by Provider: 19:15 Subjective/Events-last exam Patient was seen in his room this evening Patient Min assist for transfers Patient had nausea this AM relieved with Zofran Objective Exam Last Set of Vital Signs Vital Signs Date Time Temp Pulse Resp B/P (MAP) Pulse Ox O2 Delivery O2 Flow Rate FiO2 03/15/17 18:00 98.8 83 18 137/84 (101) 96 Room Air Capillary Refill : Less Than 3 Seconds I&O Intake and Output 03/14/17 23:59 Intake Total 1077 ml Output Total 900 ml Balance 177 ml Intake Oral 1077 ml Output Urine Total 900 ml General: Alert, Oriented X3, Cooperative, No Acute Distress HEENT: Atraumatic, PERRLA, EOMI, Mucous Memb Moist/[place] Neck: Supple, No JVD Lungs: Clear to Auscultation Heart: Regular Rate Abdomen: Normal Bowel Sounds, Soft, No Tenderness Extremities: No Edema Neuro: Other (Left LE flaccid with trace return LUE) Psych/Mental Status: Mental Status NL Results Lab Laboratory Tests 03/13/17 06:12: Glucometer 143H 03/13/17 16:10: Glucometer 132H 03/14/17 06:47: Glucometer 130H 03/14/17 16:21: Glucometer 102 03/15/17 05:46: Glucometer 133H 03/15/17 16:13: Glucometer 105 Assessment/Plan Assessment Rt MCA CVA with Left HP HTN controlled DM2 controlled Tobacco abuse declines Patch 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 GERD without espohagitis AAA without rupture Mild nausea-Zofran ordered prn Plan Continue PT/OT ST has assessed and signed off Decreased Accucheks as per above-stabl Patient requests Pet pass-see orders Patient has 2 sons and a daughter in this area to help out upon discharge Zofran for nausea Current meds reviewed Accucheks noted Next Team Conference 03-17-17 Appreciate ABD Xray results NNEKA MARTIN MD Mar 15, 2017 19:25
[2017-03-15] MEDS: ATORVASTATIN 40 MG (LIPITOR) TABLET PO SCH (20:01)
[2017-03-16 05:12] VITALS: BP 126/82
[2017-03-16] MEDS: ONDANSETRON 4 MG (ZOFRAN) ORAL DISSOLVE TAB PO SCH ×3 (06:12→16:13)
[2017-03-16] MEDS: metFORMIN 500 MG (GLUCOPHAGE) TAB PO SCH ×2 (06:12→16:13)
[2017-03-16] MEDS: GLIMEPIRIDE 2 MG (AMARYL) TAB PO SCH (06:12)
--- NOTE | 2017-03-16 07:55 | Progress Note (SOAP) ---
Subjective Time Seen by Provider: 07:53 Subjective/Events-last exam CVA. Patient to be put on milk of magnesia today.area Patient feels good today and no problems with his intestines. Abdominal x-ray shows ileus Objective Exam Vital Signs Date Time Temp Pulse Resp B/P (MAP) Pulse Ox O2 Delivery O2 Flow Rate FiO2 03/16/17 05:12 98.3 83 18 126/82 (97) 97 Room Air 03/15/17 20:30 Room Air 03/15/17 18:00 98.8 83 18 137/84 (101) 96 Room Air 03/15/17 09:00 Room Air I & O 03/16/17 07:00 Intake Total 1640 ml Output Total 1050 ml Balance 590 ml Capillary Refill : Less Than 3 Seconds General Appearance: No Apparent Distress, WD/WN Results Lab Laboratory Tests 03/15/17 16:13: Glucometer 105 03/16/17 06:06: Glucometer 115H Assessment/Plan Assessment/Plan Assess & Plan/Chief Complaint CVA on left. Hypertension. Hyperlipidemia. Tobacco usage. Abdominal aortic aneurysm. GERD . 03/10/17. 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 Hypertension. Hyperlipidemia. Tobacco usage. Patient working hard and moving left arm today. . 03/11/17. 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 Hypertension. Hyperlipidemia. Tobacco usage. Patient working hard and improving. . 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 Hypertension. Hyperlipidemia Tobacco usage. Patient stomach doing better . 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 nauseous. Hypertension. Hyperlipidemia. Tobacco usage. . 03/16/17. 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 Hypertension. Constipation. Hyperlipidemia. Tobacco usage Clinical Quality Measures DVT/VTE Risk/Contraindication: Risk Factor Score Per Nursin RFS Level Per Nursing on Admit: 4+=Very High JAIME ROBERSON DO Mar 16, 2017 07:55
[2017-03-16] MEDS: CLOPIDOGREL 75 MG (PLAVIX) TABLET PO SCH (08:07)
[2017-03-16] MEDS: lisINopril 10 MG (PRINIVIL) TABLET PO SCH (08:07)
[2017-03-16] MEDS ORDERED: MILK OF MAGNESIA 400 MG/5 ML 30 ML UDC ONE (08:20)
[2017-03-16] MEDS ORDERED: MILK OF MAGNESIA 400 MG/5 ML 30 ML UDC PO ONE (08:30)
--- NOTE | 2017-03-16 08:48 | PM & R (SOAP) Progress Note ---
Subjective Time Seen by Provider: 08:00 Subjective/Events-last exam Patient was seen in his room this AM Patient Min assist for transfers No Nausea this AM Review of Systems Neurological: Weakness Objective Exam Last Set of Vital Signs Vital Signs Date Time Temp Pulse Resp B/P (MAP) Pulse Ox O2 Delivery O2 Flow Rate FiO2 03/16/17 05:12 98.3 83 18 126/82 (97) 97 Room Air Capillary Refill : Less Than 3 Seconds I&O Intake and Output 03/16/17 00:00 Intake Total 1300 ml Output Total 950 ml Balance 350 ml Intake Oral 1300 ml Output Urine Total 950 ml General: Alert, Oriented X3, Cooperative, No Acute Distress HEENT: Atraumatic, PERRLA, EOMI, Mucous Memb Moist/[place] Neck: Supple, No JVD Lungs: Clear to Auscultation Heart: Regular Rate Abdomen: Normal Bowel Sounds, Soft, No Tenderness Extremities: No Edema Neuro: Other (Left LE flaccid with trace return LUE) Psych/Mental Status: Mental Status NL Results Lab Laboratory Tests 03/13/17 16:10: Glucometer 132H 03/14/17 06:47: Glucometer 130H 03/14/17 16:21: Glucometer 102 03/15/17 05:46: Glucometer 133H 03/15/17 16:13: Glucometer 105 03/16/17 06:06: Glucometer 115H Assessment/Plan Assessment Rt MCA CVA with Left HP HTN controlled DM2 controlled Tobacco abuse declines Patch 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 GERD without espohagitis AAA without rupture Mild nausea-Zofran ordered prn-improved Plan Continue PT/OT ST has assessed and signed off Decreased Accucheks as per above-stabl Patient requests Pet pass-see orders Patient has 2 sons and a daughter in this area to help out upon discharge Zofran for nausea Current meds reviewed Accucheks noted Next Team Conference tomorrow 03-17-17 Appreciate ABD Xray results NNEKA MARTIN MD Mar 16, 2017 08:47
--- NOTE | 2017-03-16 09:02 | Physical Therapy Daily Note ---
PT Daily Note-Current Subjective Pt is laying in bed pre tx with no complaints of pain or nausea and agrees to PT. Pain Numeric Pain Scale: 0-No Pain Appearance Pt is sitting in recliner in room post tx with nurse call, phone, and tray within reach. Mental Status Patient Orientation: Normal For Age Transfers Functional [place] Measure 0=Not Assessed/NA 4=Minimal Assistance 1=Total Assistance 5=Supervision or Setup 2=Maximal Assistance 6=Modified [place] 3=Moderate Assistance 7=Complete IndependenceIRFPAI Quality Coding Scale 6 Independent with activity with or without an assistive device 5 Patient requires set up or clean up by helper. Patient completes activity by themselves 4 Supervision or touching assist (CGA). [place] provide cues , steadying assist 3 The helper provides less than half the effort to complete the activity 2 The helper provides more than half the effort to complete the activity 1 Dependent. The helper does all the effort to complete an activity 7 Patient refused to complete or attempt activity 9 The patient did not perform the activity before the current illness or injury 88 Not attempted due to Medical conditions or safety concerns Transfers (B, C, W/C) (FIM): 4 Scootin Rollin Supine to/from Sit: 4 Sit to/from Stand: 4 Bed to/from Chair: 4 Pt requires min A for sit to stand and CGA for supine to sit at edge of bed. Verbal cues for hand and foot placement and safety. Weight Bearing Right Lower Extremity: Right Full Weight Bearing Left Lower Extremity: Left Full Weight Bearing Gait Training Does the Patient Walk?: Yes Gait (FIM): 1 Distance: 8 feet x5 Gait Level of Assist: 3 Gait Persons Needed: 1 Gait Assistive Device: Parallel Bars Patient needs assist with advancing left leg, bracing leg, weight shifting. Wears left AFO. Wheelchair Training Does the Pt Use a Wheelchair?: Yes Wheelchair (FIM): 2 Distance: 100 feet x2 Wheelchair Level of Assist: 5 Type of Wheelchair: Manual Exercises Side-lying exercises with LLE: LAQ: 15 x2, Clam shells 15 x2. Hip flexion: 15 x2 Standing TKE 15 x1 Treatments Pt performed bed mobility, WCH mobility, gait training, LE exercises, and functional activity. Assessment Current Status: Fair Progress Patient was able to advance his leg a little better while walking in the parallel bars. PT Short Term Goals Short Term Goals Time Frame: Mar 22, 2017 Gait (FIM): 2 Distance (FIM): 1=up to 49 ft Gait Assistive Device: Walker [place]ale Wheelchair (FIM): 6 Wheelchair distance (FIM): 3=150 ft Wheelchair Distance: 100 feet x2 PT Caustic Liquor Maker Goals Caustic Liquor Maker Goals PT Caustic Liquor Maker Goals Time Frame: Apr 05, 2017 Transfers (B,C,W/C) (FIM): 6 Sit to Lying (QC): 6 Lying-Sitting on Side/Bed(QC): 6 Sit to Stand (QC): 6 Rollin Roll Left to Right (QC): 6 Chair/Gug-pq-Qiqmw Xfer(QC): 6 Car Transfer (QC): 5 Does the Patient Walk: No and Walking Goal IS indicated Gait (FIM): 5 Gait distance (FIM): 3=150 ft Walk 10 feet (QC): 5 Walk 10ft-Uneven Surface(QC): 5 Walk 50ft with 2 Turns (QC): 5 Walk 150 ft (QC): 5 Gait Level of Assist: 5 Gait Assistive Device: Walker [place] Does the Pt use WC or Scooter?: Yes Wheelchair (FIM): 6 Wheelchair distance (FIM): 3=150 ft Wheel 50 feet with 2 turns (QC: 6 Stairs (FIM): 2 # of Steps: 4 1 Step (curb) (QC): 4 4 Steps (QC): 4 12 Steps (QC): 88 Picking up an Object (QC): 88 PT Plan Problem List Problem List: Activity Tolerance, Functional Strength, Safety, Balance, Gait, Transfer, Bed Mobility, ROM Treatment/Plan Treatment Plan: Continue Plan of Care Treatment Plan: Bed Mobility, Education, Functional Activity [place], Functional Strength, Group Therapy, Gait, Safety, Therapeutic Exercise, Transfers Treatment Duration: Apr 05, 2017 Frequency: At least 5 of 7 days/Wk (IRF) Estimated Hrs Per Day: 1.5 hours per day Patient and/or Family Agrees t: Yes Safety Risks/Education Patient Education: Gait Training, Transfer Techniques, Correct Positioning, W/ C Management, Safety Issues Teaching Recipient: Patient Teaching Methods: Demonstration, Discussion Response to Teaching: Reinforcement Needed Time/GCodes Time In: 800 Time Out: 900 Total Billed Treatment Time: 60 Total Billed Treatment 1 visit 10 min FA 20 min EX 30 min GT MARJ FARIA PT Mar 16, 2017 09:01
--- NOTE | 2017-03-16 13:06 | Physical Therapy Daily Note ---
PT Daily Note-Current Subjective Patient in therapy gym pre tx, he just got through with OT. Patient has no complaints of pain. Appearance Patient sitting in wheelchair post tx with nurse call, phone, tray, all needs met. Mental Status Patient Orientation: Normal For Age Transfers Functional [place] Measure 0=Not Assessed/NA 4=Minimal Assistance 1=Total Assistance 5=Supervision or Setup 2=Maximal Assistance 6=Modified [place] 3=Moderate Assistance 7=Complete IndependenceIRFPAI Quality Coding Scale 6 Independent with activity with or without an assistive device 5 Patient requires set up or clean up by helper. Patient completes activity by themselves 4 Supervision or touching assist (CGA). [place] provide cues , steadying assist 3 The helper provides less than half the effort to complete the activity 2 The helper provides more than half the effort to complete the activity 1 Dependent. The helper does all the effort to complete an activity 7 Patient refused to complete or attempt activity 9 The patient did not perform the activity before the current illness or injury 88 Not attempted due to Medical conditions or safety concerns Transfers (B, C, W/C) (FIM): 4 Sit to/from Stand: 4 Bed to/from Chair: 4 Patient performs a modified squat pivot transfer with CGA to the right and min assist to the left. Patient needs detailed cues with every transfer. He performed 4 transfers to the right and 4 to the left. Weight Bearing Right Lower Extremity: Right Full Weight Bearing Left Lower Extremity: Left Full Weight Bearing Exercises NuStep Minutes: 15 NuStep Workload: 6 Treatments functional strengthening, transfer training Assessment Current Status: Fair Progress improving transfers PT Short Term Goals Short Term Goals Time Frame: Mar 22, 2017 Gait (FIM): 2 Distance (FIM): 1=up to 49 ft Gait Assistive Device: Walker Wale Wheelchair (FIM): 6 Wheelchair distance (FIM): 3=150 ft Wheelchair Distance: 100 feet x2 PT Fpc Goals Cold Roll Operator Goals PT Fpc Goals Time Frame: Apr 05, 2017 Transfers (B,C,W/C) (FIM): 6 Sit to Lying (QC): 6 Lying-Sitting on Side/Bed(QC): 6 Sit to Stand (QC): 6 Rollin Roll Left to Right (QC): 6 Chair/Ciw-ql-Spuol Xfer(QC): 6 Car Transfer (QC): 5 Does the Patient Walk: No and Walking Goal IS indicated Gait (FIM): 5 Gait distance (FIM): 3=150 ft Walk 10 feet (QC): 5 Walk 10ft-Uneven Surface(QC): 5 Walk 50ft with 2 Turns (QC): 5 Walk 150 ft (QC): 5 Gait Level of Assist: 5 Gait Assistive Device: Walker [place] Does the Pt use WC or Scooter?: Yes Wheelchair (FIM): 6 Wheelchair distance (FIM): 3=150 ft Wheel 50 feet with 2 turns (QC: 6 Stairs (FIM): 2 # of Steps: 4 1 Step (curb) (QC): 4 4 Steps (QC): 4 12 Steps (QC): 88 Picking up an Object (QC): 88 PT Plan Problem List Problem List: Activity Tolerance, Functional Strength, Safety, Balance, Gait, Transfer, Bed Mobility, ROM Treatment/Plan Treatment Plan: Continue Plan of Care Treatment Plan: Bed Mobility, Education, Functional Activity [place], Functional Strength, Group Therapy, Gait, Safety, Therapeutic Exercise, Transfers Treatment Duration: Apr 05, 2017 Frequency: At least 5 of 7 days/Wk (IRF) Estimated Hrs Per Day: 1.5 hours per day Patient and/or Family Agrees t: Yes Safety Risks/Education Patient Education: Transfer Techniques, Correct Positioning, Disease Process, Safety Issues Teaching Recipient: Patient Teaching Methods: Demonstration, Discussion Response to Teaching: Reinforcement Needed Time/GCodes Time In: 1200 Time Out: 1230 Total Billed Treatment Time: 30 Total Billed Treatment 1 visit EX 15' FA 15' MARJ FARIA PT Mar 16, 2017 13:06
--- NOTE | 2017-03-16 14:53 | Occupational Ther Daily Note ---
OT Current Status-Daily Note Subjective No pain reported. Appearance Pt. up in wheelchair. Declines showering. Agrees to OT. Mental Status/Objective Patient Orientation: Person, Place, Time, Situation Functional [place] Measure 0=Not Assessed/NA 4=Minimal Assistance 1=Total Assistance 5=Supervision or Setup 2=Maximal Assistance 6=Modified [place] 3=Moderate Assistance 7=Complete [place] ADL-Treatment Functional [place] Measure 0=Not Assessed/NA 4=Minimal Assistance 1=Total Assistance 5=Supervision or Setup 2=Maximal Assistance 6=Modified [place] 3=Moderate Assistance 7=Complete IndependenceIRFPAI Quality Coding Scale 6 Independent with activity with or without an assistive device 5 Patient requires set up or clean up by helper. Patient completes activity by themselves 4 Supervision or touching assist (CGA). [place] provide cues , steadying assist 3 The helper provides less than half the effort to complete the activity 2 The helper provides more than half the effort to complete the activity 1 Dependent. The helper does all the effort to complete an activity 7 Patient refused to complete or attempt activity 9 The patient did not perform the activity before the current illness or injury 88 Not attempted due to Medical conditions or safety concerns Transfers (B, C, W/C) (FIM): 4 (Please see note.) Other Treatment Pt. up in chair. Transferred to other chair by standing with min assist and reaching for armrest while pivoting feet. Once in wheelchair, pt. self propelled to therapy gym. OT assessed left UE once there. Pt. demonstrates adequate movement in left wrist extensors and finger flexors. Trace movement in left elbow flexors and no shoulder. Slight subluxation noted but good glide of scapula with PROM. Completed gentle PROM in all planes. No pain. Pt. reports sensory loss with light touch and numbness in left UE. Pt. practiced standing at parallel bars x 3 with encouragement to stand by pushing up with right arm out of chair. Pt. stood in front of mirror and was guided to adjust posture accordingly, as well as weight shift and keep shoulders back. Pt. stood approximately 3-5 minutes each time. OT abeba wrapped left arm to armbike and pt. completed 10 minutes at mod resistance to increase overall strength. Tolerated this well. Pt. up in chair in therapy gym for physical therapy after treatment. Education OT Patient Education: Correct positioning, Exercise program, Modified ADL techniques, Progress toward Goal/Update tx plan, Purpose of tx/functional activities, Reviewed precautions, Rehab process, Transfer techniques Teaching Recipient: Patient Teaching Methods: Demonstration, Discussion Response to Teaching: Verbalize Understanding, Return Demonstration OT Short Term Goals Short Term Goals Time Frame: Mar 22, 2017 Grooming(FIM): 5 Bathing(FIM): 4 Toileting(FIM): 3 Toilet/Commode Transfer(FIM): 4 Additional Short Term Goals: 2-Verbalize Understanding, 3-ImproveStrength/[place] 1=Demonstrate adherence to instructed precautions during ADL tasks. 2=Patient will verbalize/demonstrate understanding of assistive devices/ modifications for ADL. 3=Patient will improve strength/tolerance for activity to enable patient to perform ADL's. OT Clinical Lab Clerk Goals Skilled Nursing Goals Time Frame: Apr 05, 2017 Eating (FIM): 6 Eating (QC): 6 Groomin Oral Hygiene (QC): 6 Bathing(FIM): 5 Shower/Bathe Self (QC): 5 Upper Body Dressing(FIM): 6 Upper Body Dressing (QC): 6 Lower Body Dressing(FIM): 5 Lower Body Dressing (QC): 5 On/Off Footwear (QC): 5 Toileting(FIM): 5 Toileting Hygiene (QC): 5 Toilet/Commode Transfer(FIM): 5 Toilet/Commode Transfer (QC): 5 Shower Transfer(FIM): 5 Additional Goals: 2-Verbalize Understanding, 3-ImproveStrength/[place] 1=Demonstrate adherence to instructed precautions during ADL tasks. 2=Patient will verbalize/demonstrate understanding of assistive devices/ modifications for ADL. 3=Patient will improve strength/tolerance for activity to enable patient to perform ADL's. OT Education/Plan Problem List/Assessment Assessment: Decreased Activ Tolerance, Decreased UE Strength, Dependent Transfers, Impaired Coordination, Impaired Funct Balance, Impaired I ADL's, Impaired Self-Care Skills, Restricted Funct UE ROM Pt would benefit from skilled OT to increase his independence in basic self care and to decrease caregiver burden. Discharge Recommendations Plan/Recommendations: Continue POC Therapy D/C Recommendations: Home w/ Family Support, Occupational Therapy Home Care, Scheduled Assistance Treatment Plan/Plan of Care Treatment,Training & Education: Yes Patient would benefit from OT for education, treatment and training to promote independence in ADL's, mobility, safety and/or upper extremity function for ADL' s. Plan of Care: ADL Retraining, Functional Mobility, Group Exercise/Act as Ind ( educaiton, exercise, activity tolerance, functional acitivites, socialization), UE Funct Exercise/Act, UE Neuromus Re-Ed/Coord, W/C Management Training Treatment Duration: Apr 05, 2017 Frequency: At least 5 of 7 days/Wk (IRF) Estimated Hrs Per Day: 1.5 hours per day Agreement: Yes Rehab Potential: Good Time/GCodes Start Time: 11:00 Stop Time: 12:00 Total Time Billed (hr/min): 60 Billed Treatment Time 1, EX x 15minutes, FA x 45minutes ELLEN MOSLEY OT Mar 16, 2017 14:53
--- NOTE | 2017-03-16 16:49 | Occupational Ther Daily Note ---
OT Current Status-Daily Note Subjective No pain reported. Appearance Pt. in room and agrees to treatment. Mental Status/Objective Patient Orientation: Person, Place, Time, Situation Functional [place] Measure 0=Not Assessed/NA 4=Minimal Assistance 1=Total Assistance 5=Supervision or Setup 2=Maximal Assistance 6=Modified [place] 3=Moderate Assistance 7=Complete [place] ADL-Treatment Functional [place] Measure 0=Not Assessed/NA 4=Minimal Assistance 1=Total Assistance 5=Supervision or Setup 2=Maximal Assistance 6=Modified [place] 3=Moderate Assistance 7=Complete IndependenceIRFPAI Quality Coding Scale 6 Independent with activity with or without an assistive device 5 Patient requires set up or clean up by helper. Patient completes activity by themselves 4 Supervision or touching assist (CGA). [place] provide cues , steadying assist 3 The helper provides less than half the effort to complete the activity 2 The helper provides more than half the effort to complete the activity 1 Dependent. The helper does all the effort to complete an activity 7 Patient refused to complete or attempt activity 9 The patient did not perform the activity before the current illness or injury 88 Not attempted due to Medical conditions or safety concerns Other Treatment Pt. self propels wheelchair to therapy gym. Once in gym, tolerated electrical stimulation to left bicep, 8 sedrick-amps x 10 minutes. Pt. then tolerated AAROM with muscle tapping to biceps and triceps for facilitation with good movement. Tolerated PROM in all planes with gentle massage to left pectoral muscles, joint compression to shoulder girdle, and scapular glide with shoulder flexion exercises. Pt. educated on good posture and positioning. All needs met. Went back to room and pt. transferred to toilet with min assist needed. Pt. with call light. Nursing aware pt. on toilet. Education OT Patient Education: Correct positioning, Modified ADL techniques, Progress toward Goal/Update tx plan, Purpose of tx/functional activities, Reviewed precautions, Rehab process, Transfer techniques Teaching Recipient: Patient Teaching Methods: Demonstration, Discussion Response to Teaching: Verbalize Understanding, Return Demonstration OT Short Term Goals Short Term Goals Time Frame: Mar 22, 2017 Grooming(FIM): 5 Bathing(FIM): 4 Toileting(FIM): 3 Toilet/Commode Transfer(FIM): 4 Additional Short Term Goals: 2-Verbalize Understanding, 3-ImproveStrength/[place] 1=Demonstrate adherence to instructed precautions during ADL tasks. 2=Patient will verbalize/demonstrate understanding of assistive devices/ modifications for ADL. 3=Patient will improve strength/tolerance for activity to enable patient to perform ADL's. OT [facility] Goals [facility] Goals Time Frame: Apr 05, 2017 Eating (FIM): 6 Eating (QC): 6 Groomin Oral Hygiene (QC): 6 Bathing(FIM): 5 Shower/Bathe Self (QC): 5 Upper Body Dressing(FIM): 6 Upper Body Dressing (QC): 6 Lower Body Dressing(FIM): 5 Lower Body Dressing (QC): 5 On/Off Footwear (QC): 5 Toileting(FIM): 5 Toileting Hygiene (QC): 5 Toilet/Commode Transfer(FIM): 5 Toilet/Commode Transfer (QC): 5 Shower Transfer(FIM): 5 Additional Goals: 2-Verbalize Understanding, 3-ImproveStrength/[place] 1=Demonstrate adherence to instructed precautions during ADL tasks. 2=Patient will verbalize/demonstrate understanding of assistive devices/ modifications for ADL. 3=Patient will improve strength/tolerance for activity to enable patient to perform ADL's. OT Education/Plan Problem List/Assessment Assessment: Decreased Activ Tolerance, Decreased UE Strength, Dependent Transfers, Impaired Coordination, Impaired Funct Balance, Impaired I ADL's, Impaired Self-Care Skills, Restricted Funct UE ROM Pt would benefit from skilled OT to increase his independence in basic self care and to decrease caregiver burden. Discharge Recommendations Plan/Recommendations: Continue POC Therapy D/C Recommendations: Home w/ Family Support, Occupational Therapy Home Care Treatment Plan/Plan of Care Treatment,Training & Education: Yes Patient would benefit from OT for education, treatment and training to promote independence in ADL's, mobility, safety and/or upper extremity function for ADL' s. Plan of Care: ADL Retraining, Functional Mobility, Group Exercise/Act as Ind ( educaiton, exercise, activity tolerance, functional acitivites, socialization), UE Funct Exercise/Act, UE Neuromus Re-Ed/Coord, W/C Management Training Treatment Duration: Apr 05, 2017 Frequency: At least 5 of 7 days/Wk (IRF) Estimated Hrs Per Day: 1.5 hours per day Agreement: Yes Rehab Potential: Good Time/GCodes Start Time: 13:00 Stop Time: 13:30 Total Time Billed (hr/min): 30 Billed Treatment Time 1, NM x 2 ELLEN MOSLEY OT Mar 16, 2017 16:49
[2017-03-16 18:00] VITALS: BP_SYST 119; BP_SYST 137; BP_DIAS 77; BP_DIAS 84
[2017-03-16] MEDS: ACETAMINOPHEN 325 MG TABLET/CAPLET (TYLENOL) PO PRN (20:23)
[2017-03-16] MEDS: ATORVASTATIN 40 MG (LIPITOR) TABLET PO SCH (20:23)
[2017-03-17 05:48] VITALS: BP 125/79
[2017-03-17] MEDS: GLIMEPIRIDE 2 MG (AMARYL) TAB PO SCH (06:00)
[2017-03-17] MEDS: ONDANSETRON 4 MG (ZOFRAN) ORAL DISSOLVE TAB PO SCH ×3 (06:00→16:36)
[2017-03-17] MEDS: metFORMIN 500 MG (GLUCOPHAGE) TAB PO SCH ×2 (06:00→16:36)
--- NOTE | 2017-03-17 08:01 | Progress Note (SOAP) ---
Subjective Time Seen by Provider: 07:55 Subjective/Events-last exam patient improving. Patient can take his own shower as long as on stool patient dressing himself more. patient working progress Objective Exam Vital Signs Date Time Temp Pulse Resp B/P (MAP) Pulse Ox O2 Delivery O2 Flow Rate FiO2 03/17/17 05:48 98.1 71 16 125/79 (94) 96 Room Air 03/16/17 21:00 Room Air 03/16/17 18:00 99.0 80 18 119/77 (91) 94 Room Air 03/16/17 18:00 99.0 80 18 137/84 (101) 96 Room Air 03/16/17 09:00 Room Air I & O 03/17/17 07:00 Intake Total 1050 ml Output Total 810 ml Balance 240 ml Capillary Refill : Less Than 3 Seconds General Appearance: No Apparent Distress, WD/WN HEENT: Normal ENT Inspection Neck: Full Range of Motion, Normal Inspection, Non Tender Respiratory: Chest Non Tender, No Accessory Muscle Use, No Respiratory Distress Cardiovascular: Regular Rate, Rhythm, No Murmur Gastrointestinal: non tender, soft Results Lab Laboratory Tests 03/16/17 15:54: Glucometer 94 03/17/17 05:08: Glucometer 106 Assessment/Plan Assessment/Plan Assess & Plan/Chief Complaint 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 Hypertension. Hyperlipidemia. Tobacco usage. Abdominal aortic aneurysm. GERD . 03/10/17. 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 Hypertension. Hyperlipidemia. Tobacco usage. Patient working hard and moving left arm today. . 03/11/17. 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 Hypertension. Hyperlipidemia. Tobacco usage. Patient working hard and improving. . 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 Hypertension. Hyperlipidemia Tobacco usage. Patient stomach doing better . 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 nauseous. Hypertension. Hyperlipidemia. Tobacco usage. . 03/16/17. 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 Hypertension. Constipation. Hyperlipidemia. Tobacco usage. . 03/17/17. 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 Hypertension. Constipation. Hyperlipidemia. Patient seems positive. Patient working hard Clinical Quality Measures DVT/VTE Risk/Contraindication: Risk Factor Score Per Nursin RFS Level Per Nursing on Admit: 4+=Very High JAIME ROBERSON DO Mar 17, 2017 08:01
--- NOTE | 2017-03-17 08:11 | PM & R (SOAP) Progress Note ---
Subjective Time Seen by Provider: 07:50 Subjective/Events-last exam Patient was seen on unit this AM with OT.Patient Min assist for transfers.No nausea today. Objective Exam Last Set of Vital Signs Vital Signs Date Time Temp Pulse Resp B/P (MAP) Pulse Ox O2 Delivery O2 Flow Rate FiO2 03/17/17 05:48 98.1 71 16 125/79 (94) 96 Room Air Capillary Refill : Less Than 3 Seconds I&O Intake and Output 03/17/17 00:00 Intake Total 1640 ml Output Total 1150 ml Balance 490 ml Intake Oral 1640 ml Output Urine Total 1150 ml # Bowel Movements 1 General: Alert, Oriented X3, Cooperative, No Acute Distress HEENT: Atraumatic, PERRLA, EOMI, Mucous Memb Moist/Dean Neck: Supple, No JVD Lungs: Clear to Auscultation Heart: Regular Rate Abdomen: Normal Bowel Sounds, Soft, No Tenderness Extremities: No Edema Neuro: Other (Left LE flaccid with trace return LUE) Psych/Mental Status: Mental Status NL Results Lab Laboratory Tests 03/14/17 16:21: Glucometer 102 03/15/17 05:46: Glucometer 133H 03/15/17 16:13: Glucometer 105 03/16/17 06:06: Glucometer 115H 03/16/17 15:54: Glucometer 94 03/17/17 05:08: Glucometer 106 Assessment/Plan Assessment Rt MCA CVA with Left HP HTN controlled DM2 controlled Tobacco abuse declines Patch 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 GERD without espohagitis AAA without rupture Mild nausea-Zofran ordered prn-improved Plan Continue PT/OT ST has assessed and signed off Decreased Accucheks as per above-stabl Patient requests Pet pass-see orders Patient has 2 sons and a daughter in this area to help out upon discharge Zofran for nausea-improved Current meds reviewed Accucheks noted Appreciate ABD Xray results Next Team Conference later today-See report for full functional update and POC and NNEKA CARDENAS MD Mar 17, 2017 08:11
[2017-03-17] MEDS: lisINopril 10 MG (PRINIVIL) TABLET PO SCH (08:35)
[2017-03-17] MEDS: CLOPIDOGREL 75 MG (PLAVIX) TABLET PO SCH (08:35)
[2017-03-17] MEDS: MILK OF MAGNESIA 400 MG/5 ML 30 ML UDC PO PRN ×2 (08:36→20:34)
--- NOTE | 2017-03-17 08:44 | Occupational Ther Daily Note ---
OT Current Status-Daily Note Subjective Pt alert, lying in bed. Son present in room. Pt agreed to therapy. No c/o pain or nausea. Mental Status/Objective Patient Orientation: Person, Place, Time, Situation Functional [place] Measure 0=Not Assessed/NA 4=Minimal Assistance 1=Total Assistance 5=Supervision or Setup 2=Maximal Assistance 6=Modified [place] 3=Moderate Assistance 7=Complete [place] ADL-Treatment Pt pulls to stand with grabbar then stands with min A while shower chair is placed for pt to sit on. Functional [place] Measure 0=Not Assessed/NA 4=Minimal Assistance 1=Total Assistance 5=Supervision or Setup 2=Maximal Assistance 6=Modified [place] 3=Moderate Assistance 7=Complete IndependenceIRFPAI Quality Coding Scale 6 Independent with activity with or without an assistive device 5 Patient requires set up or clean up by helper. Patient completes activity by themselves 4 Supervision or touching assist (CGA). [place] provide cues , steadying assist 3 The helper provides less than half the effort to complete the activity 2 The helper provides more than half the effort to complete the activity 1 Dependent. The helper does all the effort to complete an activity 7 Patient refused to complete or attempt activity 9 The patient did not perform the activity before the current illness or injury 88 Not attempted due to Medical conditions or safety concerns Grooming (FIM): 6 (Pt positions w/c in front of sink and completes own grooming.) Oral Hygiene (QC): 6 Bathing (FIM): 5 (Supervision sitting on shower chair with cut out. Pt able to complete grooming by self.) Bathing Location: L Arm, R Arm, L Upper Leg, R Upper Leg, L Lower Leg ( including foot), R Lower Leg (including foot), Chest, Abdomen, Buttocks, Perineal Area Shower/Bathe Self (QC): 4 Upper Body (FIM): 4 (After set up, pt able to don shirt with assist only to get over R shldr.) Upper Body Dressing (QC): 3 Lower Body Dressing (FIM): 3 (Pt able to don over feet with R hand and assist to stand and hike over hips. Assist to doff over L foot able to doff over hips with assist to stand and doffs over R foot by self.) Lower Body Dressing (QC): 3 On/Off Footwear (QC): 4 Toileting (FIM): 4 (Assist to manipulate clothing. Sitting on toilet to cleanse self.) Toileting Hygiene (QC): 3 Toilet/Commode Transfer (FIM): 3 (Using w/c and grabbar pt is able to complete with mod A.) Toilet Transfer (QC): 3 Other Treatment Pt maneuvered w/c to therapy gym. Pt transferred to L side with mod A to therapy mat. Pt completed balance activity while sitting on edge of mat. Leaning side to side to touch elbow to mat. Pt unable to return to sitting without assistance when L elbow touched mat. Leaning back to front with more success. Pt then worked on balance without assist of LE's, verbal cues needed to remain centered. Pt then transferred back to w/c and maneuvered to room. After therapy, pt sitting in w/c with call light/phone in reach. All needs met in room. Education OT Patient Education: Modified ADL techniques, Progress toward Goal/Update tx plan, Safety issues, Transfer techniques Teaching Recipient: Patient Teaching Methods: Demonstration, Discussion Response to Teaching: Verbalize Understanding, Return Demonstration OT Short Term Goals Short Term Goals Time Frame: Mar 22, 2017 Grooming(FIM): 5 Bathing(FIM): 4 Toileting(FIM): 3 Toilet/Commode Transfer(FIM): 4 Additional Short Term Goals: 2-Verbalize Understanding, 3-ImproveStrength/Curtis 1=Demonstrate adherence to instructed precautions during ADL tasks. 2=Patient will verbalize/demonstrate understanding of assistive devices/ modifications for ADL. 3=Patient will improve strength/tolerance for activity to enable patient to perform ADL's. OT Long-Term Goals Applications Development Analyst Goals Time Frame: Apr 05, 2017 Eating (FIM): 6 Eating (QC): 6 Groomin Oral Hygiene (QC): 6 Bathing(FIM): 5 Shower/Bathe Self (QC): 5 Upper Body Dressing(FIM): 6 Upper Body Dressing (QC): 6 Lower Body Dressing(FIM): 5 Lower Body Dressing (QC): 5 On/Off Footwear (QC): 5 Toileting(FIM): 5 Toileting Hygiene (QC): 5 Toilet/Commode Transfer(FIM): 5 Toilet/Commode Transfer (QC): 5 Shower Transfer(FIM): 5 Additional Goals: 2-Verbalize Understanding, 3-ImproveStrength/Curtis 1=Demonstrate adherence to instructed precautions during ADL tasks. 2=Patient will verbalize/demonstrate understanding of assistive devices/ modifications for ADL. 3=Patient will improve strength/tolerance for activity to enable patient to perform ADL's. OT Education/Plan Problem List/Assessment Pt would benefit from skilled OT to increase his independence in basic self care and to decrease caregiver burden. Discharge Recommendations Plan/Recommendations: Continue POC Treatment Plan/Plan of Care Patient would benefit from OT for education, treatment and training to promote independence in ADL's, mobility, safety and/or upper extremity function for ADL' s. Plan of Care: ADL Retraining, Functional Mobility, Group Exercise/Act as Ind ( educaiton, exercise, activity tolerance, functional acitivites, socialization), UE Funct Exercise/Act, UE Neuromus Re-Ed/Coord, W/C Management Training Treatment Duration: Apr 05, 2017 Frequency: At least 5 of 7 days/Wk (IRF) Estimated Hrs Per Day: 1.5 hours per day Agreement: Yes Rehab Potential: Good Time/GCodes Start Time: 07:00 Stop Time: 08:30 Total Time Billed (hr/min): 90 Billed Treatment Time 1 visit-ADL 5 (70 min) NM 1 (20 min) AARTI STARR Mar 17, 2017 08:44
--- NOTE | 2017-03-17 11:01 | Physical Therapy Daily Note ---
PT Daily Note-Current Subjective Pt is sitting in [facility] in room pre tx and has no complaints of pain or discomfort and agrees to PT. Pain Numeric Pain Scale: 0-No Pain Location: No Pain Reported Appearance Pt is sitting on toilet in room with nurse call within reach. Mental Status Patient Orientation: Normal For Age Transfers Functional [place] Measure 0=Not Assessed/NA 4=Minimal Assistance 1=Total Assistance 5=Supervision or Setup 2=Maximal Assistance 6=Modified [place] 3=Moderate Assistance 7=Complete IndependenceIRFPAI Quality Coding Scale 6 Independent with activity with or without an assistive device 5 Patient requires set up or clean up by helper. Patient completes activity by themselves 4 Supervision or touching assist (CGA). [place] provide cues , steadying assist 3 The helper provides less than half the effort to complete the activity 2 The helper provides more than half the effort to complete the activity 1 Dependent. The helper does all the effort to complete an activity 7 Patient refused to complete or attempt activity 9 The patient did not perform the activity before the current illness or injury 88 Not attempted due to Medical conditions or safety concerns Transfers (B, C, W/C) (FIM): 3 Scootin Rollin Supine to/from Sit: 4 Sit to/from Stand: 4 Bed to/from Chair: 3 Pt requires mod A for bed to chair transfer and min A for bed mobility. Pt needs verbal cues for hand placement and safety. Weight Bearing Right Lower Extremity: Right Full Weight Bearing Left Lower Extremity: Left Full Weight Bearing Gait Training Does the Patient Walk?: Yes Gait (FIM): 1 Distance (FIM): 1=up to 49 ft Distance: 10 feet x1, 5 feet x1, 3 feet, x1 Gait Level of Assist: 3 Gait Assistive Device: Walker Wale Pt wore knee immobilizer and AFO on the LLE during ambulation. Pt requires manual cues and assistance to lean to the R in order to swing the LLE. Wheelchair Training Does the Pt Use a Wheelchair?: Yes Wheelchair (FIM): 2 Distance: 100 feet x1 Wheelchair Level of Assist: 5 Type of Wheelchair: Manual Exercises Side-lying: LAQ: 10 x2 LLE, Hamstring curls: 10 x2 LLE, Clam shells: 10 x2 LLE, Knee to chest: 10 x2 LLE Treatments Pt performed bed mobility, functional activity, LE exercises, and gait training. Assessment Current Status: Fair Progress Pt requires verbal and manual cues to lean to R in order to swing the LLE during ambulation. Pt is not yet able to achieve full active LAQ on LLE in side- lying. Pt is making fair progress towards goals. PT Short Term Goals Short Term Goals Time Frame: Mar 22, 2017 Gait (FIM): 2 Distance (FIM): 1=up to 49 ft Gait Assistive Device: Walker Wale Wheelchair (FIM): 6 Wheelchair distance (FIM): 3=150 ft Wheelchair Distance: 100 feet x2 PT Usp Goals Usp Goals PT Reconnaissance Crewmember Goals Time Frame: Apr 05, 2017 Transfers (B,C,W/C) (FIM): 6 Sit to Lying (QC): 6 Lying-Sitting on Side/Bed(QC): 6 Sit to Stand (QC): 6 Rollin Roll Left to Right (QC): 6 Chair/Ryb-ct-Lrujq Xfer(QC): 6 Car Transfer (QC): 5 Does the Patient Walk: No and Walking Goal IS indicated Gait (FIM): 5 Gait distance (FIM): 3=150 ft Walk 10 feet (QC): 5 Walk 10ft-Uneven Surface(QC): 5 Walk 50ft with 2 Turns (QC): 5 Walk 150 ft (QC): 5 Gait Level of Assist: 5 Gait Assistive Device: Walker Wale Does the Pt use WC or Scooter?: Yes Wheelchair (FIM): 6 Wheelchair distance (FIM): 3=150 ft Wheel 50 feet with 2 turns (QC: 6 Stairs (FIM): 2 # of Steps: 4 1 Step (curb) (QC): 4 4 Steps (QC): 4 12 Steps (QC): 88 Picking up an Object (QC): 88 PT Plan Problem List Problem List: Activity Tolerance, Functional Strength, Safety, Balance, Gait, Transfer, Bed Mobility, ROM Treatment/Plan Treatment Plan: Continue Plan of Care Treatment Plan: Bed Mobility, Education, Functional Activity [place], Functional Strength, Group Therapy, Gait, Safety, Therapeutic Exercise, Transfers Treatment Duration: Apr 05, 2017 Frequency: At least 5 of 7 days/Wk (IRF) Estimated Hrs Per Day: 1.5 hours per day Patient and/or Family Agrees t: Yes Safety Risks/Education Patient Education: Gait Training, Transfer Techniques, Correct Positioning, W/ C Management, Safety Issues Teaching Recipient: Patient Teaching Methods: Demonstration, Discussion Response to Teaching: Reinforcement Needed Time/GCodes Time In: 1000 Time Out: 1100 Total Billed Treatment Time: 60 Total Billed Treatment 1 visit 20 min EX 25 min GT 15 min MARJ LARSEN PT Mar 17, 2017 11:01
--- NOTE | 2017-03-17 15:09 | Therapy Group Daily Note ---
Therapy Daily Group Note Patient Education Topic Other List Below (sleep strategies, relaxation techniques) Exercises LE Seated Exercise, UE Exercise Other/Notes Pt maneuvered w/c to OT/PT group in [facility]. Group consisted of introduction (name, place living, own relaxation time), seated UE/LE pt led exercises, ARU description/expectations, sleep and relaxation strategies. Pt able to introduce self appropriately and actively listening to peers introduction. Pt asked questions to peers about their relaxation techniques. Pt able to lead group in two exercises effectively. Pt did modified exercises with L UE due to medical diagnosis. Pt was able to verbalize understanding of educational topics and contribute opinions and strategies used. Pt contributed to education of ARU expectations and give examples. After therapy, pt maneuvered w/c to room then decided to come back out to [facility]. All needs met. Start Time: 13:00 Stop Time: 14:30 Total Billed Treatment Time: 90 Total Billed Treatment 1-AARTI DAVIS Mar 17, 2017 15:09
[2017-03-17 18:51] VITALS: BP 120/75
[2017-03-17] MEDS: ATORVASTATIN 40 MG (LIPITOR) TABLET PO SCH (20:34)
[2017-03-18 06:00] VITALS: BP 125/78
[2017-03-18] MEDS: metFORMIN 500 MG (GLUCOPHAGE) TAB PO SCH ×2 (06:20→16:46)
[2017-03-18] MEDS: ONDANSETRON 4 MG (ZOFRAN) ORAL DISSOLVE TAB PO SCH ×3 (06:20→16:46)
[2017-03-18] MEDS: GLIMEPIRIDE 2 MG (AMARYL) TAB PO SCH (06:20)
[2017-03-18] MEDS: lisINopril 10 MG (PRINIVIL) TABLET PO SCH (07:56)
[2017-03-18] MEDS: CLOPIDOGREL 75 MG (PLAVIX) TABLET PO SCH (07:56)
--- NOTE | 2017-03-18 07:59 | Occupational Ther Daily Note ---
OT Current Status-Daily Note Subjective Pt alert, sitting in w/c. Pt agreed to therapy. No c/o pain. Mental Status/Objective Patient Orientation: Person, Place, Time, Situation Functional [place] Measure 0=Not Assessed/NA 4=Minimal Assistance 1=Total Assistance 5=Supervision or Setup 2=Maximal Assistance 6=Modified [place] 3=Moderate Assistance 7=Complete [place] ADL-Treatment Pt maneuvered w/c into bathroom and completed own grooming. Discussed home environment and AE with pt. Pt stated that he does have tub shower that he can use and has room to maneuver w/c around in. Discussed use of tub shower transfer bench and BSC to place beside bed. Pt given AE magazine for reference and resource. Pt was taken to large shower room for demonstration of tub shower transfer. Will work on transfer at later time. After therapy, pt sitting in w/c with call light/phone in reach. All needs met in room. Functional [place] Measure 0=Not Assessed/NA 4=Minimal Assistance 1=Total Assistance 5=Supervision or Setup 2=Maximal Assistance 6=Modified [place] 3=Moderate Assistance 7=Complete IndependenceIRFPAI Quality Coding Scale 6 Independent with activity with or without an assistive device 5 Patient requires set up or clean up by helper. Patient completes activity by themselves 4 Supervision or touching assist (CGA). [place] provide cues , steadying assist 3 The helper provides less than half the effort to complete the activity 2 The helper provides more than half the effort to complete the activity 1 Dependent. The helper does all the effort to complete an activity 7 Patient refused to complete or attempt activity 9 The patient did not perform the activity before the current illness or injury 88 Not attempted due to Medical conditions or safety concerns Grooming (FIM): 6 Oral Hygiene (QC): 6 Other Treatment Completed electrical stimulation to L shldr girdle for elevation and retraction. 5 amps for 20 min, 20 sec on 5 sec off. Pt worked with electrical stimulation, APROM. Pt is demonstrating approx 1" shldr subluxation. OT Short Term Goals Short Term Goals Time Frame: Mar 22, 2017 Grooming(FIM): 5 Bathing(FIM): 4 Toileting(FIM): 3 Toilet/Commode Transfer(FIM): 4 Additional Short Term Goals: 2-Verbalize Understanding, 3-ImproveStrength/Curtis 1=Demonstrate adherence to instructed precautions during ADL tasks. 2=Patient will verbalize/demonstrate understanding of assistive devices/ modifications for ADL. 3=Patient will improve strength/tolerance for activity to enable patient to perform ADL's. OT Assisted Goals Beading Installer Goals Time Frame: Apr 05, 2017 Eating (FIM): 6 Eating (QC): 6 Groomin Oral Hygiene (QC): 6 Bathing(FIM): 5 Shower/Bathe Self (QC): 5 Upper Body Dressing(FIM): 6 Upper Body Dressing (QC): 6 Lower Body Dressing(FIM): 5 Lower Body Dressing (QC): 5 On/Off Footwear (QC): 5 Toileting(FIM): 5 Toileting Hygiene (QC): 5 Toilet/Commode Transfer(FIM): 5 Toilet/Commode Transfer (QC): 5 Shower Transfer(FIM): 5 Additional Goals: 2-Verbalize Understanding, 3-ImproveStrength/Curtis 1=Demonstrate adherence to instructed precautions during ADL tasks. 2=Patient will verbalize/demonstrate understanding of assistive devices/ modifications for ADL. 3=Patient will improve strength/tolerance for activity to enable patient to perform ADL's. OT Education/Plan Problem List/Assessment Pt would benefit from skilled OT to increase his independence in basic self care and to decrease caregiver burden. Discharge Recommendations Plan/Recommendations: Continue POC Treatment Plan/Plan of Care Patient would benefit from OT for education, treatment and training to promote independence in ADL's, mobility, safety and/or upper extremity function for ADL' s. Plan of Care: ADL Retraining, Functional Mobility, Group Exercise/Act as Ind ( educaiton, exercise, activity tolerance, functional acitivites, socialization), UE Funct Exercise/Act, UE Neuromus Re-Ed/Coord, W/C Management Training Treatment Duration: Apr 05, 2017 Frequency: At least 5 of 7 days/Wk (IRF) Estimated Hrs Per Day: 1.5 hours per day Agreement: Yes Rehab Potential: Good Time/GCodes Start Time: 07:00 Stop Time: 08:00 Total Time Billed (hr/min): 60 Billed Treatment Time 1 visit-FA 3 (40 min) NM 1 (20 min) AARTI STARR Mar 18, 2017 07:59
--- NOTE | 2017-03-18 08:29 | Progress Note (SOAP) ---
Subjective Time Seen by Provider: 08:30 Subjective/Events-last exam cVA. Patient feeling okay. 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 Hypertension. Hyperlipidemia. Tobacco usage. Abdominal aortic aneurysm. GERD . 03/10/17. 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 Hypertension. Hyperlipidemia. Tobacco usage. Patient working hard and moving left arm today. . 03/11/17. 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 Hypertension. Hyperlipidemia. Tobacco usage. Patient working hard and improving. . 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 Hypertension. Hyperlipidemia Tobacco usage. Patient stomach doing better . 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 nauseous. Hypertension. Hyperlipidemia. Tobacco usage. . 03/16/17. 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 Hypertension. Constipation. Hyperlipidemia. Tobacco usage. . 03/17/17. 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 Hypertension. Constipation. Hyperlipidemia. Patient seems positive. Patient working hardarea . 03/18/17. 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 Hypertension. Did not have a bowel movement today. Hyperlipidemia. Patient working on walking Clinical Quality Measures DVT/VTE Risk/Contraindication: Risk Factor Score Per Nursin RFS Level Per Nursing on Admit: 4+=Very High JAIME ROBERSON DO Mar 18, 2017 08:29
--- NOTE | 2017-03-18 08:54 | Physical Therapy Daily Note ---
PT Daily Note-Current Subjective Pt is sitting in [facility] in [facility] area pre tx with daughter. Pt c/o constipation and reports he has not had a BM in 2 days. Pt agrees to PT. Per OT request wore arm sling during tx. Pain Numeric Pain Scale: 0-No Pain Appearance Pt is sitting in [facility] in room post tx with nurse call, remote, and tray within reach. Pt wearing the arm sling post ex. Mental Status Patient Orientation: Normal For Age Transfers Functional [place] Measure 0=Not Assessed/NA 4=Minimal Assistance 1=Total Assistance 5=Supervision or Setup 2=Maximal Assistance 6=Modified [place] 3=Moderate Assistance 7=Complete IndependenceIRFPAI Quality Coding Scale 6 Independent with activity with or without an assistive device 5 Patient requires set up or clean up by helper. Patient completes activity by themselves 4 Supervision or touching assist (CGA). [place] provide cues , steadying assist 3 The helper provides less than half the effort to complete the activity 2 The helper provides more than half the effort to complete the activity 1 Dependent. The helper does all the effort to complete an activity 7 Patient refused to complete or attempt activity 9 The patient did not perform the activity before the current illness or injury 88 Not attempted due to Medical conditions or safety concerns Transfers (B, C, W/C) (FIM): 4 Scootin Sit to/from Stand: 4 Bed to/from Chair: 4 Pt requires min A for sit to stand transfer. Verbal cues for hand placement and safety. Weight Bearing Right Lower Extremity: Right Full Weight Bearing Left Lower Extremity: Left Full Weight Bearing Gait Training Does the Patient Walk?: Yes Gait (FIM): 1 Distance: 8 feet x3 Gait Level of Assist: 4 Gait Persons Needed: 1 Gait Assistive Device: Parallel Bars In parallel bars, pt requires manual and cues to lean and shift to the R with R hip against bar to assist in lifting the LLE for swing. Pt wore AFO on LLE during gait. Wheelchair Training Does the Pt Use a Wheelchair?: Yes Wheelchair (FIM): 2 Distance: 100 feet x2 Wheelchair Level of Assist: 6 Type of Wheelchair: Manual Exercises Standing: Weight shifts (Lateral 10 x3) Treatments Pt performed [facility] mobility, gait training, and functional activity. Assessment Current Status: Fair Progress Pt has difficulty activating L quadriceps in standing to extend knee during gait training. Pt is able to shift weight laterally to the L and R but needs cues to shift his weight to the right further and his left knee shelly when shifting to the left unless manually stabilized. Pt requires many manual and verbal cues during gait. PT Short Term Goals Short Term Goals Time Frame: Mar 22, 2017 Gait (FIM): 2 Distance (FIM): 1=up to 49 ft Gait Assistive Device: Walker Wale Wheelchair (FIM): 6 Wheelchair distance (FIM): 3=150 ft Wheelchair Distance: 100 feet x1 PT Pizza Maker Goals [facility] Goals PT Pizza Maker Goals Time Frame: Apr 05, 2017 Transfers (B,C,W/C) (FIM): 6 Sit to Lying (QC): 6 Lying-Sitting on Side/Bed(QC): 6 Sit to Stand (QC): 6 Rollin Roll Left to Right (QC): 6 Chair/Ybq-ro-Qisnl Xfer(QC): 6 Car Transfer (QC): 5 Does the Patient Walk: No and Walking Goal IS indicated Gait (FIM): 5 Gait distance (FIM): 3=150 ft Walk 10 feet (QC): 5 Walk 10ft-Uneven Surface(QC): 5 Walk 50ft with 2 Turns (QC): 5 Walk 150 ft (QC): 5 Gait Level of Assist: 5 Gait Assistive Device: Walker Wale Does the Pt use WC or Scooter?: Yes Wheelchair (FIM): 6 Wheelchair distance (FIM): 3=150 ft Wheel 50 feet with 2 turns (QC: 6 Stairs (FIM): 2 # of Steps: 4 1 Step (curb) (QC): 4 4 Steps (QC): 4 12 Steps (QC): 88 Picking up an Object (QC): 88 PT Plan Problem List Problem List: Activity Tolerance, Functional Strength, Safety, Balance, Gait, Transfer, Bed Mobility, ROM Treatment/Plan Treatment Plan: Continue Plan of Care Treatment Plan: Bed Mobility, Education, Functional Activity Curtis, Functional Strength, Group Therapy, Gait, Safety, Therapeutic Exercise, Transfers Treatment Duration: Apr 05, 2017 Frequency: At least 5 of 7 days/Wk (IRF) Estimated Hrs Per Day: 1.5 hours per day Patient and/or Family Agrees t: Yes Safety Risks/Education Patient Education: Gait Training, Transfer Techniques, Correct Positioning, W/ C Management, Safety Issues Teaching Recipient: Patient Teaching Methods: Demonstration, Discussion Response to Teaching: Reinforcement Needed Time/GCodes Time In: 800 Time Out: 900 Total Billed Treatment Time: 60 Total Billed Treatment 1 visit 10 min WC 30 min GT 20 min MARJ LARSEN PT Mar 18, 2017 08:54
--- NOTE | 2017-03-18 09:16 | PM & R (SOAP) Progress Note ---
Subjective Time Seen by Provider: 08:10 Subjective/Events-last exam Patient was seen in common area of IRU today Patient self propels W/C Independently on unit Patient c/o constipation still Bowel meds adjusted.Patient to have TLOA tomorrow evening with patient to see game in [employer]. Review of Systems Gastrointestinal: Constipation Objective Exam Last Set of Vital Signs Vital Signs Date Time Temp Pulse Resp B/P (MAP) Pulse Ox O2 Delivery O2 Flow Rate FiO2 03/18/17 06:00 97.9 73 17 125/78 (94) 95 Room Air Capillary Refill : Less Than 3 Seconds I&O Intake and Output 03/18/17 00:00 Intake Total 890 ml Output Total 210 ml Balance 680 ml Intake Oral 890 ml Output Urine Total 210 ml # Voids 3 General: Alert, Oriented X3, Cooperative, No Acute Distress HEENT: Atraumatic, PERRLA, EOMI, Mucous Memb Moist/[place] Neck: Supple, No JVD Lungs: Clear to Auscultation Heart: Regular Rate Abdomen: Normal Bowel Sounds, Soft, No Tenderness Extremities: No Edema Neuro: Other (Left LE flaccid with trace return LUE) Psych/Mental Status: Mental Status NL Results Lab Laboratory Tests 03/15/17 16:13: Glucometer 105 03/16/17 06:06: Glucometer 115H 03/16/17 15:54: Glucometer 94 03/17/17 05:08: Glucometer 106 03/17/17 16:26: Glucometer 114H 03/18/17 05:11: Glucometer 112H Assessment/Plan Assessment Rt MCA CVA with Left HP HTN controlled DM2 controlled Tobacco abuse declines Patch 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 GERD without espohagitis AAA without rupture Mild nausea-Zofran ordered prn-improved Constipation meds to be adjusted as needed Plan Continue PT/OT ST has assessed and signed off Decreased Accucheks as per above-stabl Patient requests Pet pass-see orders Patient has 2 sons and a daughter in this area to help out upon discharge Zofran for nausea-improved Current meds reviewed Accucheks noted Appreciate ABD Xray results Team Conference held yesterday-See report for full functional update and POC and ELOS Adjust meds for consipation TLOA as per above see orders NNEKA MARTIN MD Mar 18, 2017 09:16
--- NOTE | 2017-03-18 13:29 | Occupational Ther Daily Note ---
OT Current Status-Daily Note Subjective Pt alert, sitting in w/c. Took over care from PT. Pt agreed to therapy. No c/ o pain. Mental Status/Objective Patient Orientation: Person, Place, Time, Situation Functional [place] Measure 0=Not Assessed/NA 4=Minimal Assistance 1=Total Assistance 5=Supervision or Setup 2=Maximal Assistance 6=Modified [place] 3=Moderate Assistance 7=Complete [place] ADL-Treatment Functional [place] Measure 0=Not Assessed/NA 4=Minimal Assistance 1=Total Assistance 5=Supervision or Setup 2=Maximal Assistance 6=Modified [place] 3=Moderate Assistance 7=Complete IndependenceIRFPAI Quality Coding Scale 6 Independent with activity with or without an assistive device 5 Patient requires set up or clean up by helper. Patient completes activity by themselves 4 Supervision or touching assist (CGA). [place] provide cues , steadying assist 3 The helper provides less than half the effort to complete the activity 2 The helper provides more than half the effort to complete the activity 1 Dependent. The helper does all the effort to complete an activity 7 Patient refused to complete or attempt activity 9 The patient did not perform the activity before the current illness or injury 88 Not attempted due to Medical conditions or safety concerns Toileting (FIM): 3 (Assist to hike pants over hips. Cleanses self sitting on toilet.) Toileting Hygiene (QC): 3 Toilet/Commode Transfer (FIM): 3 (Transfer toward L side is mod A. Assist to pivot L LE during transfer. Pt pulls to stand with grabbars. Min A for transfer to R side.) Other Treatment Pt demonstrated increase in muscle activation this afternoon for L shldr elevation. Electrical stimulation to L shldr for elevation and retraction. 15 min at 3 ramps, 20 seconds on 9 seconds off. After therapy, pt sitting on toilet with call light in reach. Nrsg notified. All needs met in room. OT Short Term Goals Short Term Goals Time Frame: Mar 22, 2017 Grooming(FIM): 5 Bathing(FIM): 4 Toileting(FIM): 3 Toilet/Commode Transfer(FIM): 4 Additional Short Term Goals: 2-Verbalize Understanding, 3-ImproveStrength/[place]urt[place] 1=Demonstrate adherence to instructed precautions during ADL tasks. 2=Patient will verbalize/demonstrate understanding of assistive devices/ modifications for ADL. 3=Patient will improve strength/tolerance for activity to enable patient to perform ADL's. OT Senior Care Goals Senior Care Goals Time Frame: Apr 05, 2017 Eating (FIM): 6 Eating (QC): 6 Groomin Oral Hygiene (QC): 6 Bathing(FIM): 5 Shower/Bathe Self (QC): 5 Upper Body Dressing(FIM): 6 Upper Body Dressing (QC): 6 Lower Body Dressing(FIM): 5 Lower Body Dressing (QC): 5 On/Off Footwear (QC): 5 Toileting(FIM): 5 Toileting Hygiene (QC): 5 Toilet/Commode Transfer(FIM): 5 Toilet/Commode Transfer (QC): 5 Shower Transfer(FIM): 5 Additional Goals: 2-Verbalize Understanding, 3-ImproveStrength/Curtis 1=Demonstrate adherence to instructed precautions during ADL tasks. 2=Patient will verbalize/demonstrate understanding of assistive devices/ modifications for ADL. 3=Patient will improve strength/tolerance for activity to enable patient to perform ADL's. OT Education/Plan Problem List/Assessment Pt would benefit from skilled OT to increase his independence in basic self care and to decrease caregiver burden. Discharge Recommendations Plan/Recommendations: Continue POC Treatment Plan/Plan of Care Patient would benefit from OT for education, treatment and training to promote independence in ADL's, mobility, safety and/or upper extremity function for ADL' s. Plan of Care: ADL Retraining, Functional Mobility, Group Exercise/Act as Ind ( educaiton, exercise, activity tolerance, functional acitivites, socialization), UE Funct Exercise/Act, UE Neuromus Re-Ed/Coord, W/C Management Training Treatment Duration: Apr 05, 2017 Frequency: At least 5 of 7 days/Wk (IRF) Estimated Hrs Per Day: 1.5 hours per day Agreement: Yes Rehab Potential: Good Time/GCodes Start Time: 13:00 Stop Time: 13:30 Total Time Billed (hr/min): 30 Billed Treatment Time 1 visit-ADL 1 (15 min) NM 1 (15 min) AARTI STARR Mar 18, 2017 13:29
--- NOTE | 2017-03-18 14:12 | Physical Therapy Daily Note ---
PT Daily Note-Current Subjective Pt is sitting in recliner in room pre tx and has no complaints of pain. Pt is agreeable to PT. Pain Numeric Pain Scale: 0-No Pain Appearance Pt is sitting in [facility] in therapy gym as he as OT next. All needs of patient have been met. Mental Status Patient Orientation: Normal For Age AFO on the LLE Transfers Functional [place] Measure 0=Not Assessed/NA 4=Minimal Assistance 1=Total Assistance 5=Supervision or Setup 2=Maximal Assistance 6=Modified [place] 3=Moderate Assistance 7=Complete IndependenceIRFPAI Quality Coding Scale 6 Independent with activity with or without an assistive device 5 Patient requires set up or clean up by helper. Patient completes activity by themselves 4 Supervision or touching assist (CGA). [place] provide cues , steadying assist 3 The helper provides less than half the effort to complete the activity 2 The helper provides more than half the effort to complete the activity 1 Dependent. The helper does all the effort to complete an activity 7 Patient refused to complete or attempt activity 9 The patient did not perform the activity before the current illness or injury 88 Not attempted due to Medical conditions or safety concerns Transfers (B, C, W/C) (FIM): 3 Scootin Sit to/from Stand: 3 Pt requires mod A during sit to stand and WC to NuStep transfer. Verbal cues needed for hand placement. Weight Bearing Right Lower Extremity: Right Full Weight Bearing Left Lower Extremity: Left Full Weight Bearing Gait Training Does the Patient Walk?: No and Walking Goal IS indicated Wheelchair Training Does the Pt Use a Wheelchair?: Yes Wheelchair (FIM): 2 Distance: 100 feet x1 Wheelchair Level of Assist: 5 Type of Wheelchair: Manual Exercises NuStep Minutes: 10 NuStep Workload: 5 Treatments Pt performed functional activity. [facility] mobility, LE exercises. Assessment Current Status: Good Progress Pt is able to tolerate 10 minutes of 5 workload while on the NuStep. Pt is not yet WB on the LLE during transfers. PT Short Term Goals Short Term Goals Time Frame: Mar 22, 2017 Gait (FIM): 2 Distance (FIM): 1=up to 49 ft Gait Assistive Device: Walker Wale Wheelchair (FIM): 6 Wheelchair distance (FIM): 3=150 ft Wheelchair Distance: 100 feet x2 PT Chef Concierge Goals Nursing Home Goals PT Nursing Home Goals Time Frame: Apr 05, 2017 Transfers (B,C,W/C) (FIM): 6 Sit to Lying (QC): 6 Lying-Sitting on Side/Bed(QC): 6 Sit to Stand (QC): 6 Rollin Roll Left to Right (QC): 6 Chair/Scs-ax-Kzmim Xfer(QC): 6 Car Transfer (QC): 5 Does the Patient Walk: No and Walking Goal IS indicated Gait (FIM): 5 Gait distance (FIM): 3=150 ft Walk 10 feet (QC): 5 Walk 10ft-Uneven Surface(QC): 5 Walk 50ft with 2 Turns (QC): 5 Walk 150 ft (QC): 5 Gait Level of Assist: 5 Gait Assistive Device: Walker Wale Does the Pt use WC or Scooter?: Yes Wheelchair (FIM): 6 Wheelchair distance (FIM): 3=150 ft Wheel 50 feet with 2 turns (QC: 6 Stairs (FIM): 2 # of Steps: 4 1 Step (curb) (QC): 4 4 Steps (QC): 4 12 Steps (QC): 88 Picking up an Object (QC): 88 PT Plan Problem List Problem List: Activity Tolerance, Functional Strength, Safety, Balance, Gait, Transfer, Bed Mobility, ROM Treatment/Plan Treatment Plan: Continue Plan of Care Treatment Plan: Bed Mobility, Education, Functional Activity Curtis, Functional Strength, Group Therapy, Gait, Safety, Therapeutic Exercise, Transfers Treatment Duration: Apr 05, 2017 Frequency: At least 5 of 7 days/Wk (IRF) Estimated Hrs Per Day: 1.5 hours per day Patient and/or Family Agrees t: Yes Safety Risks/Education Patient Education: Transfer Techniques, Correct Positioning, W/C Management, Safety Issues Teaching Recipient: Patient Teaching Methods: Demonstration, Discussion Response to Teaching: Reinforcement Needed Time/GCodes Time In: 1230 Time Out: 1300 Total Billed Treatment Time: 30 Total Billed Treatment 1 visit 10 min EX 20 min FA AARTI TARIQ PT Mar 18, 2017 14:12
[2017-03-18 19:19] VITALS: BP 108/68
[2017-03-18] MEDS: ATORVASTATIN 40 MG (LIPITOR) TABLET PO SCH (20:07)
[2017-03-19] MEDS: GLIMEPIRIDE 2 MG (AMARYL) TAB PO SCH (06:08)
[2017-03-19] MEDS: ONDANSETRON 4 MG (ZOFRAN) ORAL DISSOLVE TAB PO SCH ×3 (06:08→16:07)
[2017-03-19] MEDS: metFORMIN 500 MG (GLUCOPHAGE) TAB PO SCH ×2 (06:08→16:07)
[2017-03-19 06:42] VITALS: BP 120/80
--- NOTE | 2017-03-19 08:06 | Progress Note (SOAP) ---
Subjective Time Seen by Provider: 08:00 Subjective/Events-last exam PATIENT FEELING BETTER TODAY. Patient excited about going to the game [employer]. Patient had been bowel movement this morning CVA on left Objective Exam Vital Signs Date Time Temp Pulse Resp B/P (MAP) Pulse Ox O2 Delivery O2 Flow Rate FiO2 03/19/17 06:42 98.1 80 17 120/80 (93) 99 Room Air 03/18/17 20:20 Room Air 03/18/17 19:19 96.1 74 14 108/68 (81) 92 Room Air 03/18/17 09:00 Room Air I & O 03/19/17 07:00 Intake Total 1220 ml Output Total 600 ml Balance 620 ml Capillary Refill : Less Than 3 Seconds General Appearance: No Apparent Distress, WD/WN HEENT: Normal ENT Inspection Neck: Normal Inspection Respiratory: No Accessory Muscle Use, No Respiratory Distress Results Lab Laboratory Tests 03/18/17 17:05: Glucometer 119H 03/19/17 05:10: Glucometer 107 Assessment/Plan Assessment/Plan Assess & Plan/Chief Complaint CVA on left. Hypertension. Hyperlipidemia. Tobacco usage. Abdominal aortic aneurysm. GERD . 03/10/17. 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 Hypertension. Hyperlipidemia. Tobacco usage. Patient working hard and moving left arm today. . 03/11/17. 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 Hypertension. Hyperlipidemia. Tobacco usage. Patient working hard and improving. . 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 Hypertension. Hyperlipidemia Tobacco usage. Patient stomach doing better . 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 nauseous. Hypertension. Hyperlipidemia. Tobacco usage. . 03/16/17. 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 Hypertension. Constipation. Hyperlipidemia. Tobacco usage. . 03/17/17. 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 Hypertension. Constipation. Hyperlipidemia. Patient seems positive. Patient working hard . 03/18/17. 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 Hypertension. Did not have a bowel movement today. Hyperlipidemia. Patient working on walking. . 03/19/17. 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 Hypertension. Hyperlipidemia. Constipation resolved Clinical Quality Measures DVT/VTE Risk/Contraindication: Risk Factor Score Per Nursin RFS Level Per Nursing on Admit: 4+=Very High JAIME ROBERSON DO Mar 19, 2017 08:06
[2017-03-19] MEDS: lisINopril 10 MG (PRINIVIL) TABLET PO SCH (08:07)
[2017-03-19] MEDS: CLOPIDOGREL 75 MG (PLAVIX) TABLET PO SCH (08:07)
--- NOTE | 2017-03-19 08:44 | PM & R (SOAP) Progress Note ---
Subjective Time Seen by Provider: 08:20 Subjective/Events-last exam Patient was seen in shower room with OT this AM Patient looking forward to TLOA this evening to see family member play in Basketball game.Patient mod assist for transfers.Abdominal film noted. Review of Systems Neurological: Weakness Objective Exam Last Set of Vital Signs Vital Signs Date Time Temp Pulse Resp B/P (MAP) Pulse Ox O2 Delivery O2 Flow Rate FiO2 03/19/17 06:42 98.1 80 17 120/80 (93) 99 Room Air Capillary Refill : Less Than 3 Seconds I&O Intake and Output 03/19/17 00:00 Intake Total 1420 ml Output Total 600 ml Balance 820 ml Intake Oral 1420 ml Output Urine Total 600 ml # Voids 4 # Bowel Movements 1 General: Alert, Oriented X3, Cooperative, No Acute Distress HEENT: Atraumatic, PERRLA, EOMI, Mucous Memb Moist/[place] Neck: Supple, No JVD Lungs: Clear to Auscultation Heart: Regular Rate Abdomen: Normal Bowel Sounds, Soft, No Tenderness Extremities: No Edema Neuro: Other (Left LE flaccid with trace return LUE) Psych/Mental Status: Mental Status NL Results Lab Laboratory Tests 03/16/17 15:54: Glucometer 94 03/17/17 05:08: Glucometer 106 03/17/17 16:26: Glucometer 114H 03/18/17 05:11: Glucometer 112H 03/18/17 17:05: Glucometer 119H 03/19/17 05:10: Glucometer 107 Assessment/Plan Assessment Rt MCA CVA with Left HP HTN controlled DM2 controlled Tobacco abuse declines Patch 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 GERD without espohagitis AAA without rupture Mild nausea-Zofran ordered prn-improved Constipation meds to be adjusted as needed Plan Continue PT/OT ST has assessed and signed off Decreased Accucheks as per above-stabl Patient requests Pet pass-see orders Patient has 2 sons and a daughter in this area to help out upon discharge Zofran for nausea-improved Current meds reviewed Accucheks noted Appreciate ABD Xray results Team Conference held 03-17-17 See report for full functional update and POC and ELOS Adjust meds for constipation as needed TLOA as per above for this evening see orders NNEKA MARTIN MD Mar 19, 2017 08:44
--- NOTE | 2017-03-19 08:59 | Physical Therapy Daily Note ---
PT Daily Note-Current Subjective Patient in wheelchair at bedside pre tx, agrees to PT, no complaints of pain. Appearance Patient in wheelchair at bedside post tx with nurse call, phone, tray, all needs met. Mental Status Patient Orientation: Normal For Age Transfers Functional [place] Measure 0=Not Assessed/NA 4=Minimal Assistance 1=Total Assistance 5=Supervision or Setup 2=Maximal Assistance 6=Modified [place] 3=Moderate Assistance 7=Complete IndependenceIRFPAI Quality Coding Scale 6 Independent with activity with or without an assistive device 5 Patient requires set up or clean up by helper. Patient completes activity by themselves 4 Supervision or touching assist (CGA). [place] provide cues , steadying assist 3 The helper provides less than half the effort to complete the activity 2 The helper provides more than half the effort to complete the activity 1 Dependent. The helper does all the effort to complete an activity 7 Patient refused to complete or attempt activity 9 The patient did not perform the activity before the current illness or injury 88 Not attempted due to Medical conditions or safety concerns Transfers (B, C, W/C) (FIM): 4 Scootin Rollin Supine to/from Sit: 5 Sit to/from Stand: 4 Bed to/from Chair: 4 Patient can perform supine to sit with SBA with detailed directions. Transfers to the right with CGA and to the left with min assist. Patient performed 5-6 transfers to each side. Weight Bearing Right Lower Extremity: Right Full Weight Bearing Left Lower Extremity: Left Full Weight Bearing Gait Training Gait (FIM): 1 Distance: 15' Gait Level of Assist: 3 Gait Persons Needed: 1 Gait Assistive Device: Walker Wale Patient can ambulate 15' with a hemiwalker with mod assist and left knee immobilizer and ankle wrap. Needs assist with weight shifting. Exercises LAQ x20 with active assist, sit to stand 3 sets of 5 Treatments bed mobility and transfers, ambulation, functional strengthening, wheelchair mobility Assessment Current Status: Fair Progress improving weight shifting during ambulation. Patient did perform the first transfer to the right very poorly and needed assist from the therapist to keep from falling, he did not seem to retain training from before. PT Short Term Goals Short Term Goals Time Frame: Mar 22, 2017 Gait (FIM): 2 Distance (FIM): 1=up to 49 ft Gait Assistive Device: Walker Wale Wheelchair (FIM): 6 Wheelchair distance (FIM): 3=150 ft Wheelchair Distance: 100 feet x1 PT Half-Way Goals Half-Way Goals PT Calculation Clerk Goals Time Frame: Apr 05, 2017 Transfers (B,C,W/C) (FIM): 6 Sit to Lying (QC): 6 Lying-Sitting on Side/Bed(QC): 6 Sit to Stand (QC): 6 Rollin Roll Left to Right (QC): 6 Chair/Yqd-rt-Bvpbl Xfer(QC): 6 Car Transfer (QC): 5 Does the Patient Walk: No and Walking Goal IS indicated Gait (FIM): 5 Gait distance (FIM): 3=150 ft Walk 10 feet (QC): 5 Walk 10ft-Uneven Surface(QC): 5 Walk 50ft with 2 Turns (QC): 5 Walk 150 ft (QC): 5 Gait Level of Assist: 5 Gait Assistive Device: [place] Does the Pt use WC or Scooter?: Yes Wheelchair (FIM): 6 Wheelchair distance (FIM): 3=150 ft Wheel 50 feet with 2 turns (QC: 6 Stairs (FIM): 2 # of Steps: 4 1 Step (curb) (QC): 4 4 Steps (QC): 4 12 Steps (QC): 88 Picking up an Object (QC): 88 PT Plan Problem List Problem List: Activity Tolerance, Functional Strength, Safety, Balance, Gait, Transfer, Bed Mobility, ROM Treatment/Plan Treatment Plan: Continue Plan of Care Treatment Plan: Bed Mobility, Education, Functional Activity Curtis, Functional Strength, Group Therapy, Gait, Safety, Therapeutic Exercise, Transfers Treatment Duration: Apr 05, 2017 Frequency: At least 5 of 7 days/Wk (IRF) Estimated Hrs Per Day: 1.5 hours per day Patient and/or Family Agrees t: Yes Safety Risks/Education Patient Education: Gait Training, Transfer Techniques, Correct Positioning, W/ C Management, Safety Issues Teaching Recipient: Patient Teaching Methods: Demonstration, Discussion Response to Teaching: Reinforcement Needed Time/GCodes Time In: 800 Time Out: 900 Total Billed Treatment Time: 60 Total Billed Treatment 1 visit GT 30' EX 15' FA 15' MARJ FARIA PT Mar 19, 2017 08:59
--- NOTE | 2017-03-19 12:23 | Occupational Ther Daily Note ---
OT Current Status-Daily Note Subjective Pt alert, sitting in w/c. Pt agreed to therapy. No c/o pain at this time. Pt did state that he did not have a good sleep last night. Mental Status/Objective Patient Orientation: Person, Place, Time, Situation Functional [place] Measure 0=Not Assessed/NA 4=Minimal Assistance 1=Total Assistance 5=Supervision or Setup 2=Maximal Assistance 6=Modified [place] 3=Moderate Assistance 7=Complete [place] ADL-Treatment Pt had already completed grooming prior to MARTELL coming into room. Pt retrieved clothing for shower and dressing today at w/c level. Pt's son present to see how the tub/shower set up was with grabbars and tub transfer bench. Pt required mod A to transfer from w/c to tub transfer bench then was able to lift B LE's into bathtub. Mod A to stand and hike pants over hips to doff using tub transfer bench and grabbars. Pt was able to bathe all areas except buttocks on transfer bench. Pt attempted to lean side to side to cleanse buttocks, when leaning toward L side pt unable to keep balance. Pt then stood with mod A and assist in standing while pt cleansed buttocks. Pt able to use transfer bench to get out of tub by self then mod A to go from bench to w/c. Pt was able to don/doff shirt by self. Assist to doff sock/pants over L foot. Pt crossed L LE over R knee to don underwear/pants/socks with assist only to keep leg propped onto knee. Pt donned on R LE by self. Assist in standing and hiking pants over hips after pt's attempt to hike. Pt demonstrates increased stability when holding onto grabbar or stable surface with R UE while standing. After therapy, pt sitting in w/c with call light/phone in reach. All needs met in room. Functional [place] Measure 0=Not Assessed/NA 4=Minimal Assistance 1=Total Assistance 5=Supervision or Setup 2=Maximal Assistance 6=Modified [place] 3=Moderate Assistance 7=Complete IndependenceIRFPAI Quality Coding Scale 6 Independent with activity with or without an assistive device 5 Patient requires set up or clean up by helper. Patient completes activity by themselves 4 Supervision or touching assist (CGA). [place] provide cues , steadying assist 3 The helper provides less than half the effort to complete the activity 2 The helper provides more than half the effort to complete the activity 1 Dependent. The helper does all the effort to complete an activity 7 Patient refused to complete or attempt activity 9 The patient did not perform the activity before the current illness or injury 88 Not attempted due to Medical conditions or safety concerns Grooming (FIM): 6 Oral Hygiene (QC): 6 Bathing (FIM): 3 (Assist to stand) Bathing Location: L Arm, R Arm, L Upper Leg, R Upper Leg, L Lower Leg ( including foot), R Lower Leg (including foot), Chest, Abdomen, Buttocks, Perineal Area Shower/Bathe Self (QC): 3 Upper Body (FIM): 6 Upper Body Dressing (QC): 6 Lower Body Dressing (FIM): 3 Lower Body Dressing (QC): 2 On/Off Footwear (QC): 4 Shower Transfer(FIM): 3 OT Short Term Goals Short Term Goals Time Frame: Mar 22, 2017 Grooming(FIM): 5 Bathing(FIM): 4 Toileting(FIM): 3 Toilet/Commode Transfer(FIM): 4 Additional Short Term Goals: 2-Verbalize Understanding, 3-ImproveStrength/Curtis 1=Demonstrate adherence to instructed precautions during ADL tasks. 2=Patient will verbalize/demonstrate understanding of assistive devices/ modifications for ADL. 3=Patient will improve strength/tolerance for activity to enable patient to perform ADL's. OT Intermediate Goals Signalling And Communications Engineer Goals Time Frame: Apr 05, 2017 Eating (FIM): 6 Eating (QC): 6 Groomin Oral Hygiene (QC): 6 Bathing(FIM): 5 Shower/Bathe Self (QC): 5 Upper Body Dressing(FIM): 6 Upper Body Dressing (QC): 6 Lower Body Dressing(FIM): 5 Lower Body Dressing (QC): 5 On/Off Footwear (QC): 5 Toileting(FIM): 5 Toileting Hygiene (QC): 5 Toilet/Commode Transfer(FIM): 5 Toilet/Commode Transfer (QC): 5 Shower Transfer(FIM): 5 Additional Goals: 2-Verbalize Understanding, 3-ImproveStrength/Curtis 1=Demonstrate adherence to instructed precautions during ADL tasks. 2=Patient will verbalize/demonstrate understanding of assistive devices/ modifications for ADL. 3=Patient will improve strength/tolerance for activity to enable patient to perform ADL's. OT Education/Plan Problem List/Assessment Pt would benefit from skilled OT to increase his independence in basic self care and to decrease caregiver burden. Discharge Recommendations Plan/Recommendations: Continue POC Treatment Plan/Plan of Care Patient would benefit from OT for education, treatment and training to promote independence in ADL's, mobility, safety and/or upper extremity function for ADL' s. Plan of Care: ADL Retraining, Functional Mobility, Group Exercise/Act as Ind ( educaiton, exercise, activity tolerance, functional acitivites, socialization), UE Funct Exercise/Act, UE Neuromus Re-Ed/Coord, W/C Management Training Treatment Duration: Apr 05, 2017 Frequency: At least 5 of 7 days/Wk (IRF) Estimated Hrs Per Day: 1.5 hours per day Agreement: Yes Rehab Potential: Good Time/GCodes Start Time: 06:50 Stop Time: 07:50 Total Time Billed (hr/min): 60 Billed Treatment Time 1 visit-ADL 4 (60 min) AARTI STARR Mar 19, 2017 12:22
--- NOTE | 2017-03-19 15:15 | Therapy Group Daily Note ---
Therapy Daily Group Note Patient Education Topic Home Safety, Other List Below (flu, walker, w/c) Exercises LE Seated Exercise, UE Exercise Other/Notes Pt maneuvered w/c to therapy gym for OT/PT group. Group consisted of introductions (name, place living, favorite boy/girl name), socialization, flu prevention/education, FWW and w/c education, seated UE/LE exercises, pt led exercises and home safety. Pt introduced self appropriately and actively listened to peers as they introduced themselves. Pt verbalized understanding of educational topics by asking questions and agreeing to recommendations given. Pt was able to complete exercises with one-handed technique and led peers in 1 exercise. Pt actively participated in home safety trivia and problem solving discussion with therapist and group members. Pt maneuvered w/c back to [facility] by self. All needs met. Start Time: 13:00 Stop Time: 14:30 Total Billed Treatment Time: 90 Total Billed Treatment 1-[facility] AARTI STARR Mar 19, 2017 15:15
[2017-03-19 20:02] VITALS: BP 120/76
[2017-03-19] MEDS: ATORVASTATIN 40 MG (LIPITOR) TABLET PO SCH (20:11)
[2017-03-19] MEDS: ACETAMINOPHEN 325 MG TABLET/CAPLET (TYLENOL) PO PRN (20:15)
[2017-03-20 05:22] VITALS: BP 124/80
[2017-03-20] MEDS: GLIMEPIRIDE 2 MG (AMARYL) TAB PO SCH (06:00)
[2017-03-20] MEDS: ONDANSETRON 4 MG (ZOFRAN) ORAL DISSOLVE TAB PO SCH ×3 (06:00→17:27)
[2017-03-20] MEDS: metFORMIN 500 MG (GLUCOPHAGE) TAB PO SCH ×2 (06:00→17:27)
[2017-03-20] MEDS: lisINopril 10 MG (PRINIVIL) TABLET PO SCH (09:14)
[2017-03-20] MEDS: CLOPIDOGREL 75 MG (PLAVIX) TABLET PO SCH (09:14)
--- NOTE | 2017-03-20 11:43 | Physical Therapy Daily Note ---
PT Daily Note-Current Subjective Pt. states he enjoyed his outing last evening out of facility but got got fatigued and left before the basketball game was over. Agrees to Rx. Pain Numeric Pain Scale: 0-No Pain Mental Status Patient Orientation: Normal For Age Attachments: Other-See Comments (sling LUE, AFO and knee immoblizer LLE/foot) Transfers Functional [place] Measure 0=Not Assessed/NA 4=Minimal Assistance 1=Total Assistance 5=Supervision or Setup 2=Maximal Assistance 6=Modified [place] 3=Moderate Assistance 7=Complete IndependenceIRFPAI Quality Coding Scale 6 Independent with activity with or without an assistive device 5 Patient requires set up or clean up by helper. Patient completes activity by themselves 4 Supervision or touching assist (CGA). [place] provide cues , steadying assist 3 The helper provides less than half the effort to complete the activity 2 The helper provides more than half the effort to complete the activity 1 Dependent. The helper does all the effort to complete an activity 7 Patient refused to complete or attempt activity 9 The patient did not perform the activity before the current illness or injury 88 Not attempted due to Medical conditions or safety concerns Transfers (B, C, W/C) (FIM): 3 Scootin Sit to/from Stand: 3 Weight Bearing Right Lower Extremity: Right Full Weight Bearing Left Lower Extremity: Left Full Weight Bearing Gait Training Does the Patient Walk?: Yes Gait (FIM): 1 Distance (FIM): 1=up to 49 ft (25ftx2,10ftx1) Gait Level of Assist: 2 Gait Persons Needed: 2 Gait Assistive Device: Walker Wale pt. requires max to mod assist to advance LLE, pt. leaning heavily to left all of gait. wt shift requires assist as well. with instruction and assist to shorten step length pt. had somewhat better control . w/c behind pt. for gait with occas balance assist of 2nd person Treatments standing at parallel bars with mirror for feedback , weight shift left and right with mod assist and alignment cues etc Assessment Current Status: Good Progress pt. gives full effort, "ipsilateral pusher syndrome" PT Short Term Goals Short Term Goals Time Frame: Mar 22, 2017 Gait (FIM): 2 Distance (FIM): 1=up to 49 ft Gait Assistive Device: Walker Wale Wheelchair (FIM): 6 Wheelchair distance (FIM): 3=150 ft Wheelchair Distance: 100 feet x1 PT Snf Goals Cadd Operator Goals PT Snf Goals Time Frame: Apr 05, 2017 Transfers (B,C,W/C) (FIM): 6 Sit to Lying (QC): 6 Lying-Sitting on Side/Bed(QC): 6 Sit to Stand (QC): 6 Rollin Roll Left to Right (QC): 6 Chair/Ixz-ne-Dotxv Xfer(QC): 6 Car Transfer (QC): 5 Does the Patient Walk: No and Walking Goal IS indicated Gait (FIM): 5 Gait distance (FIM): 3=150 ft Walk 10 feet (QC): 5 Walk 10ft-Uneven Surface(QC): 5 Walk 50ft with 2 Turns (QC): 5 Walk 150 ft (QC): 5 Gait Level of Assist: 5 Gait Assistive Device: Walker Wale Does the Pt use WC or Scooter?: Yes Wheelchair (FIM): 6 Wheelchair distance (FIM): 3=150 ft Wheel 50 feet with 2 turns (QC: 6 Stairs (FIM): 2 # of Steps: 4 1 Step (curb) (QC): 4 4 Steps (QC): 4 12 Steps (QC): 88 Picking up an Object (QC): 88 PT Plan Treatment/Plan Treatment Plan: Continue Plan of Care Treatment Plan: Bed Mobility, Education, Functional Activity Curtis, Functional Strength, Group Therapy, Gait, Safety, Therapeutic Exercise, Transfers Treatment Duration: Apr 05, 2017 Frequency: At least 5 of 7 days/Wk (IRF) Estimated Hrs Per Day: 1.5 hours per day Patient and/or Family Agrees t: Yes Safety Risks/Education Patient Education: Gait Training, Transfer Techniques, Correct Positioning, Safety Issues Teaching Recipient: Patient Teaching Methods: Demonstration Response to Teaching: Verbalize Understanding, Return Demonstration, Reinforcement Needed Time/GCodes Time In: 1010 Time Out: 1035 Total Billed Treatment Time: 25 Total Billed Treatment 1,FA10m,GT15m G Codes Necessary: JONG Mcfarland DIRECTOR SALES AND TRADE MARKETING Mar 20, 2017 11:43
[2017-03-20 18:43] VITALS: BP 116/71
[2017-03-20] MEDS: ATORVASTATIN 40 MG (LIPITOR) TABLET PO SCH (20:03)
[2017-03-21 05:27] VITALS: BP 123/77
[2017-03-21] MEDS: ONDANSETRON 4 MG (ZOFRAN) ORAL DISSOLVE TAB PO SCH ×3 (06:11→16:51)
[2017-03-21] MEDS: metFORMIN 500 MG (GLUCOPHAGE) TAB PO SCH ×2 (06:11→16:51)
[2017-03-21] MEDS: GLIMEPIRIDE 2 MG (AMARYL) TAB PO SCH (06:11)
[2017-03-21] MEDS: CLOPIDOGREL 75 MG (PLAVIX) TABLET PO SCH (08:11)
[2017-03-21] MEDS: lisINopril 10 MG (PRINIVIL) TABLET PO SCH (08:11)
[2017-03-21 18:47] VITALS: BP 114/66
[2017-03-21] MEDS: ACETAMINOPHEN 325 MG TABLET/CAPLET (TYLENOL) PO PRN (20:08)
[2017-03-21] MEDS: ATORVASTATIN 40 MG (LIPITOR) TABLET PO SCH (20:08)
[2017-03-22 05:03] VITALS: BP 114/76
[2017-03-22] MEDS: GLIMEPIRIDE 2 MG (AMARYL) TAB PO SCH (06:05)
[2017-03-22] MEDS: ONDANSETRON 4 MG (ZOFRAN) ORAL DISSOLVE TAB PO SCH (06:05)
[2017-03-22] MEDS: metFORMIN 500 MG (GLUCOPHAGE) TAB PO SCH ×2 (06:05→16:38)
--- NOTE | 2017-03-22 07:45 | Occupational Ther Daily Note ---
OT Current Status-Daily Note Subjective Pt alert, sitting in w/c. Pt agreed to therapy. No c/o pain at this time. Mental Status/Objective Patient Orientation: Person, Place, Time, Situation Functional [place] Measure 0=Not Assessed/NA 4=Minimal Assistance 1=Total Assistance 5=Supervision or Setup 2=Maximal Assistance 6=Modified [place] 3=Moderate Assistance 7=Complete [place] ADL-Treatment Pt had already completed grooming prior to therapy while sitting in w/c. After therapy, pt sitting in [facility] area. All needs met in room. Functional [place] Measure 0=Not Assessed/NA 4=Minimal Assistance 1=Total Assistance 5=Supervision or Setup 2=Maximal Assistance 6=Modified [place] 3=Moderate Assistance 7=Complete IndependenceIRFPAI Quality Coding Scale 6 Independent with activity with or without an assistive device 5 Patient requires set up or clean up by helper. Patient completes activity by themselves 4 Supervision or touching assist (CGA). [place] provide cues , steadying assist 3 The helper provides less than half the effort to complete the activity 2 The helper provides more than half the effort to complete the activity 1 Dependent. The helper does all the effort to complete an activity 7 Patient refused to complete or attempt activity 9 The patient did not perform the activity before the current illness or injury 88 Not attempted due to Medical conditions or safety concerns Grooming (FIM): 6 Oral Hygiene (QC): 6 Bathing (FIM): 4 (Pt completed shower using shower bench, grabbar, hand held shower and long handle sponge. Pt was able to reach all area except buttocks. Pt pulled to stand with grabbar, attempted 2x due to L foot slipping inward and pt unable to keep balance. 2nd time pt able to keep foot steady and stabilize self with grabbar while assist to cleanse buttocks.) Bathing Location: L Arm, R Arm, L Upper Leg, R Upper Leg, L Lower Leg ( including foot), R Lower Leg (including foot), Chest, Abdomen, Perineal Area Shower/Bathe Self (QC): 3 Upper Body (FIM): 6 (Pt retrieves own clothing at w/c level. Pt able to don/ doff upper body clothing by self.) Upper Body Dressing (QC): 6 Lower Body Dressing (FIM): 3 (Assist to hike pants over hips to don/doff. Assist to doff over L foot. Pt is able to don/doff over R foot and pull up legs. Assist to don/doff socks/shoes over L foot, pt able to don/doff over R foot.) Lower Body Dressing (QC): 2 On/Off Footwear (QC): 3 Shower Transfer(FIM): 3 (Using grabbar, shower bench and w/c pt is mod A to transfer into shower toward L side then min A to transfer out of shower toward R side.) OT Short Term Goals Short Term Goals Time Frame: Mar 22, 2017 Grooming(FIM): 5 Bathing(FIM): 4 Toileting(FIM): 3 Toilet/Commode Transfer(FIM): 4 Additional Short Term Goals: 2-Verbalize Understanding, 3-ImproveStrength/Curtis 1=Demonstrate adherence to instructed precautions during ADL tasks. 2=Patient will verbalize/demonstrate understanding of assistive devices/ modifications for ADL. 3=Patient will improve strength/tolerance for activity to enable patient to perform ADL's. OT Block Piler Goals Block Piler Goals Time Frame: Apr 05, 2017 Eating (FIM): 6 Eating (QC): 6 Groomin Oral Hygiene (QC): 6 Bathing(FIM): 5 Shower/Bathe Self (QC): 5 Upper Body Dressing(FIM): 6 Upper Body Dressing (QC): 6 Lower Body Dressing(FIM): 5 Lower Body Dressing (QC): 5 On/Off Footwear (QC): 5 Toileting(FIM): 5 Toileting Hygiene (QC): 5 Toilet/Commode Transfer(FIM): 5 Toilet/Commode Transfer (QC): 5 Shower Transfer(FIM): 5 Additional Goals: 2-Verbalize Understanding, 3-ImproveStrength/Curtis 1=Demonstrate adherence to instructed precautions during ADL tasks. 2=Patient will verbalize/demonstrate understanding of assistive devices/ modifications for ADL. 3=Patient will improve strength/tolerance for activity to enable patient to perform ADL's. OT Education/Plan Problem List/Assessment Pt would benefit from skilled OT to increase his independence in basic self care and to decrease caregiver burden. Discharge Recommendations Plan/Recommendations: Continue POC Treatment Plan/Plan of Care Patient would benefit from OT for education, treatment and training to promote independence in ADL's, mobility, safety and/or upper extremity function for ADL' s. Plan of Care: ADL Retraining, Functional Mobility, Group Exercise/Act as Ind ( educaiton, exercise, activity tolerance, functional acitivites, socialization), UE Funct Exercise/Act, UE Neuromus Re-Ed/Coord, W/C Management Training Treatment Duration: Apr 05, 2017 Frequency: At least 5 of 7 days/Wk (IRF) Estimated Hrs Per Day: 1.5 hours per day Agreement: Yes Rehab Potential: Good Time/GCodes Start Time: 06:45 Stop Time: 07:45 Total Time Billed (hr/min): 60 Billed Treatment Time 1 visit-ADL 4 (60 min) AARTI STARR Mar 22, 2017 07:45
--- NOTE | 2017-03-22 07:54 | Progress Note (SOAP) ---
Subjective Time Seen by Provider: 07:50 Subjective/Events-last exam CVA. patient doing better with his left upper extremity in the lower extremity. Patient enjoyed going to the game Wednesday night Objective Exam Vital Signs Date Time Temp Pulse Resp B/P (MAP) Pulse Ox O2 Delivery O2 Flow Rate FiO2 03/22/17 05:03 98.9 79 16 114/76 (89) 95 Room Air 03/21/17 20:38 Room Air 03/21/17 18:47 96.9 78 16 114/66 (82) 96 Room Air 03/21/17 08:15 Room Air I & O 03/22/17 07:00 Intake Total 1900 ml Balance 1900 ml Capillary Refill : Less Than 3 Seconds General Appearance: No Apparent Distress, WD/WN HEENT: Normal ENT Inspection Neck: Full Range of Motion, Normal Inspection Respiratory: Chest Non Tender, Lungs Clear, No Accessory Muscle Use, No Respiratory Distress Cardiovascular: No Murmur Gastrointestinal: non tender, soft Results Lab Laboratory Tests 03/21/17 16:36: Glucometer 103 03/22/17 05:02: Glucometer 121H Assessment/Plan Assessment/Plan Assess & Plan/Chief Complaint 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 Hypertension. Hyperlipidemia. Tobacco usage. Abdominal aortic aneurysm. GERD . 03/10/17. 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 Hypertension. Hyperlipidemia. Tobacco usage. Patient working hard and moving left arm today. . 03/11/17. 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 Hypertension. Hyperlipidemia. Tobacco usage. Patient working hard and improving. . 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 Hypertension. Hyperlipidemia Tobacco usage. Patient stomach doing better . 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 nauseous. Hypertension. Hyperlipidemia. Tobacco usage. . 03/16/17. 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 Hypertension. Constipation. Hyperlipidemia. Tobacco usage. . 03/17/17. 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 Hypertension. Constipation. Hyperlipidemia. Patient seems positive. Patient working hard . 03/18/17. 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 Hypertension. Did not have a bowel movement today. Hyperlipidemia. Patient working on walking. . 03/19/17. 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 Hypertension. Hyperlipidemia. Constipation resolved. . 03/22/17. 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 Hypertension. Hyperlipidemia. Patient doing better with left upper extremity and left lower extremity Clinical Quality Measures DVT/VTE Risk/Contraindication: Risk Factor Score Per Nursin RFS Level Per Nursing on Admit: 4+=Very High JAIME ROBERSON DO Mar 22, 2017 07:54
[2017-03-22] MEDS: CLOPIDOGREL 75 MG (PLAVIX) TABLET PO SCH (08:09)
[2017-03-22] MEDS: lisINopril 10 MG (PRINIVIL) TABLET PO SCH (08:09)
--- NOTE | 2017-03-22 08:47 | Physical Therapy Daily Note ---
PT Daily Note-Current Subjective Pt is sitting in [facility] in visiting area pre tx and c/o no pain. Pt agrees to PT. Pain Numeric Pain Scale: 0-No Pain Location: No Pain Reported Appearance Pt is sitting in [facility] in bedroom post tx and has nurse call, phone, and tray within reach. Mental Status Patient Orientation: Normal For Age Transfers Functional [place] Measure 0=Not Assessed/NA 4=Minimal Assistance 1=Total Assistance 5=Supervision or Setup 2=Maximal Assistance 6=Modified [place] 3=Moderate Assistance 7=Complete IndependenceIRFPAI Quality Coding Scale 6 Independent with activity with or without an assistive device 5 Patient requires set up or clean up by helper. Patient completes activity by themselves 4 Supervision or touching assist (CGA). [place] provide cues , steadying assist 3 The helper provides less than half the effort to complete the activity 2 The helper provides more than half the effort to complete the activity 1 Dependent. The helper does all the effort to complete an activity 7 Patient refused to complete or attempt activity 9 The patient did not perform the activity before the current illness or injury 88 Not attempted due to Medical conditions or safety concerns Transfers (B, C, W/C) (FIM): 4 Scootin Sit to/from Stand: 4 Bed to/from Chair: 4 Pt requires min A for sit to stand and bed to [facility] transfer for guidance and safety. Verbal cues for hand placement needed as well. Weight Bearing Right Lower Extremity: Right Full Weight Bearing Left Lower Extremity: Left Full Weight Bearing Gait Training Does the Patient Walk?: Yes Wheelchair Training Does the Pt Use a Wheelchair?: Yes Wheelchair (FIM): 2 Distance: 100 feet x2 Wheelchair Level of Assist: 5 Type of Wheelchair: Manual Exercises Seated Therapy Exercises: Sit to stand (7 x3 from differing heights) Chair to chair transfer towards strong and weak side: 4 x4 Standing posture: 5 x1 Treatments Pt performed [facility] mobility and functional activity and balance training. Assessment Current Status: Fair Progress With verbal and cues, pt is achieving proper standing alignment and posture for 2 seconds. Pt is performing transfers to strong and weak side with similar success with min A for safety and guidance. PT Short Term Goals Short Term Goals Time Frame: Mar 22, 2017 Gait (FIM): 2 Distance (FIM): 1=up to 49 ft Gait Assistive Device: Walker Wale Wheelchair (FIM): 6 Wheelchair distance (FIM): 3=150 ft Wheelchair Distance: 100 feet x1 PT Molded Goods Embossing Press Operator Goals Retirement Goals PT Retirement Goals Time Frame: Apr 05, 2017 Transfers (B,C,W/C) (FIM): 6 Sit to Lying (QC): 6 Lying-Sitting on Side/Bed(QC): 6 Sit to Stand (QC): 6 Rollin Roll Left to Right (QC): 6 Chair/Wtc-ac-Nowbg Xfer(QC): 6 Car Transfer (QC): 5 Does the Patient Walk: No and Walking Goal IS indicated Gait (FIM): 5 Gait distance (FIM): 3=150 ft Walk 10 feet (QC): 5 Walk 10ft-Uneven Surface(QC): 5 Walk 50ft with 2 Turns (QC): 5 Walk 150 ft (QC): 5 Gait Level of Assist: 5 Gait Assistive Device: Walker [place] Does the Pt use WC or Scooter?: Yes Wheelchair (FIM): 6 Wheelchair distance (FIM): 3=150 ft Wheel 50 feet with 2 turns (QC: 6 Stairs (FIM): 2 # of Steps: 4 1 Step (curb) (QC): 4 4 Steps (QC): 4 12 Steps (QC): 88 Picking up an Object (QC): 88 PT Plan Problem List Problem List: Activity Tolerance, Functional Strength, Safety, Balance, Gait, Transfer, Bed Mobility, ROM Treatment/Plan Treatment Plan: Continue Plan of Care Treatment Plan: Bed Mobility, Education, Functional Activity Curtis, Functional Strength, Group Therapy, Gait, Safety, Therapeutic Exercise, Transfers Treatment Duration: Apr 05, 2017 Frequency: At least 5 of 7 days/Wk (IRF) Estimated Hrs Per Day: 1.5 hours per day Patient and/or Family Agrees t: Yes Safety Risks/Education Patient Education: Transfer Techniques, Correct Positioning, W/C Management, Safety Issues Teaching Recipient: Patient Teaching Methods: Demonstration, Discussion Response to Teaching: Reinforcement Needed Time/GCodes Time In: 800 Time Out: 845 Total Billed Treatment Time: 45 Total Billed Treatment 1 visit 10 min [facility] 35 min MARJ LARSEN PT Mar 22, 2017 08:46
[2017-03-22] MEDS ORDERED: ONDANSETRON 4 MG (ZOFRAN) ORAL DISSOLVE TAB PO PRN (09:00)
--- NOTE | 2017-03-22 15:08 | Therapy Group Daily Note ---
Therapy Daily Group Note Patient Education Topic Other List Below (memory) Exercises LE Seated Exercise, UE Exercise Other/Notes Pt manuevered w/c to [facility] for OT/PT group. Group consisted of introductions (name, place living, memory activity-raya waller,5), socialization, UE/LE seated exercises, memory strategy education and memory activities. Pt introduced self appropriately and actively listened to peers in group. Pt was able to remember the 3 words during introduction. Pt verbalized understanding of memory strategies by describing what strategy is personally used. Good participation during memory activities and use of strategies educated on to complete. Pt completed UE/LE seated exercises, LE good AROM then difficulty with UE due to medical diagnosis. After group, pt lying in bed with call light/phone in reach. All needs met in room. Start Time: 13:00 Stop Time: 14:20 Total Billed Treatment Time: 80 Total Billed Treatment 1-[facility] AARTI STARR Mar 22, 2017 15:08
[2017-03-22 18:00] VITALS: BP 115/76
[2017-03-22] MEDS: ATORVASTATIN 40 MG (LIPITOR) TABLET PO SCH (20:35)
[2017-03-23 06:00] VITALS: BP 130/83
[2017-03-23] MEDS: GLIMEPIRIDE 2 MG (AMARYL) TAB PO SCH (06:14)
[2017-03-23] MEDS: metFORMIN 500 MG (GLUCOPHAGE) TAB PO SCH ×2 (06:14→17:24)
--- NOTE | 2017-03-23 07:57 | Occupational Ther Daily Note ---
OT Current Status-Daily Note Subjective Pt alert, sitting in w/c. Pt agreed to therapy. No c/o pain. Mental Status/Objective Patient Orientation: Person, Place, Time, Situation Functional [place] Measure 0=Not Assessed/NA 4=Minimal Assistance 1=Total Assistance 5=Supervision or Setup 2=Maximal Assistance 6=Modified [place] 3=Moderate Assistance 7=Complete [place] ADL-Treatment Functional [place] Measure 0=Not Assessed/NA 4=Minimal Assistance 1=Total Assistance 5=Supervision or Setup 2=Maximal Assistance 6=Modified [place] 3=Moderate Assistance 7=Complete IndependenceIRFPAI Quality Coding Scale 6 Independent with activity with or without an assistive device 5 Patient requires set up or clean up by helper. Patient completes activity by themselves 4 Supervision or touching assist (CGA). [place] provide cues , steadying assist 3 The helper provides less than half the effort to complete the activity 2 The helper provides more than half the effort to complete the activity 1 Dependent. The helper does all the effort to complete an activity 7 Patient refused to complete or attempt activity 9 The patient did not perform the activity before the current illness or injury 88 Not attempted due to Medical conditions or safety concerns Other Treatment Pt transferred to R side with min A from w/c to therapy mat. Pt demonstrated ability to lift L elbow off of mat in supine 2". Progress made with L shldr. Electrical stimulation to L shldr to increase AROM completed for 5 min at 3 amps at 6. Pt was able to complete shldr flexion with elbow bent with AAROM. Pt then completed magdy with B UE's, L UE wrapped onto handle for 10 min. Arm bike completed for 10 min at 20 spaulding resistance to increase strength and L AROM for daily functional tasks, L hand wrapped on handle. Pt then maneuvered w /c back to room and completed grooming at sink, mod I. All needs met in room. OT Short Term Goals Short Term Goals Time Frame: Mar 22, 2017 Grooming(FIM): 5 Bathing(FIM): 4 Toileting(FIM): 3 Toilet/Commode Transfer(FIM): 4 Additional Short Term Goals: 2-Verbalize Understanding, 3-ImproveStrength/Curtis 1=Demonstrate adherence to instructed precautions during ADL tasks. 2=Patient will verbalize/demonstrate understanding of assistive devices/ modifications for ADL. 3=Patient will improve strength/tolerance for activity to enable patient to perform ADL's. OT Group Home Goals Colors Custodian Goals Time Frame: Apr 05, 2017 Eating (FIM): 6 Eating (QC): 6 Groomin Oral Hygiene (QC): 6 Bathing(FIM): 5 Shower/Bathe Self (QC): 5 Upper Body Dressing(FIM): 6 Upper Body Dressing (QC): 6 Lower Body Dressing(FIM): 5 Lower Body Dressing (QC): 5 On/Off Footwear (QC): 5 Toileting(FIM): 5 Toileting Hygiene (QC): 5 Toilet/Commode Transfer(FIM): 5 Toilet/Commode Transfer (QC): 5 Shower Transfer(FIM): 5 Additional Goals: 2-Verbalize Understanding, 3-ImproveStrength/Curtis 1=Demonstrate adherence to instructed precautions during ADL tasks. 2=Patient will verbalize/demonstrate understanding of assistive devices/ modifications for ADL. 3=Patient will improve strength/tolerance for activity to enable patient to perform ADL's. OT Education/Plan Problem List/Assessment Pt would benefit from skilled OT to increase his independence in basic self care and to decrease caregiver burden. Discharge Recommendations Plan/Recommendations: Continue POC Treatment Plan/Plan of Care Patient would benefit from OT for education, treatment and training to promote independence in ADL's, mobility, safety and/or upper extremity function for ADL' s. Plan of Care: ADL Retraining, Functional Mobility, Group Exercise/Act as Ind ( educaiton, exercise, activity tolerance, functional acitivites, socialization), UE Funct Exercise/Act, UE Neuromus Re-Ed/Coord, W/C Management Training Treatment Duration: Apr 05, 2017 Frequency: At least 5 of 7 days/Wk (IRF) Estimated Hrs Per Day: 1.5 hours per day Agreement: Yes Rehab Potential: Good Time/GCodes Start Time: 07:00 Stop Time: 08:00 Total Time Billed (hr/min): 60 Billed Treatment Time 1 visit-NM 3 (50 min) ADL 1 (10 min) AARTI STARR Mar 23, 2017 07:57
--- NOTE | 2017-03-23 08:40 | Progress Note (SOAP) ---
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 Patient had bowel movement today. patient working progress Objective Exam Vital Signs Date Time Temp Pulse Resp B/P (MAP) Pulse Ox O2 Delivery O2 Flow Rate FiO2 03/23/17 06:00 98.7 76 17 130/83 (99) 97 Room Air 03/22/17 20:30 Room Air 03/22/17 18:00 97.6 78 20 115/76 (89) 95 Room Air 03/22/17 08:48 Room Air I & O 03/23/17 07:00 Intake Total 1275 ml Balance 1275 ml Capillary Refill : Less Than 3 Seconds General Appearance: No Apparent Distress, WD/WN HEENT: Normal ENT Inspection Neck: Full Range of Motion Results Lab Laboratory Tests 03/22/17 16:01: Glucometer 98 03/23/17 05:30: Glucometer 128H Assessment/Plan Assessment/Plan Assess & Plan/Chief Complaint 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 Hypertension. Hyperlipidemia. Tobacco usage. Abdominal aortic aneurysm. GERD . 03/10/17. 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 Hypertension. Hyperlipidemia. Tobacco usage. Patient working hard and moving left arm today. . 03/11/17. 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 Hypertension. Hyperlipidemia. Tobacco usage. Patient working hard and improving. . 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 Hypertension. Hyperlipidemia Tobacco usage. Patient stomach doing better . 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 nauseous. Hypertension. Hyperlipidemia. Tobacco usage. . 03/16/17. 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 Hypertension. Constipation. Hyperlipidemia. Tobacco usage. . 03/17/17. 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 Hypertension. Constipation. Hyperlipidemia. Patient seems positive. Patient working hard . 03/18/17. 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 Hypertension. Did not have a bowel movement today. Hyperlipidemia. Patient working on walking. . 03/19/17. 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 Hypertension. Hyperlipidemia. Constipation resolved. . 03/22/17. 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 Hypertension. Hyperlipidemia. Patient doing better with left upper extremity and left lower extremity. . 03/23. 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 Hypertension.. patient doing better with upper extremity than lower extremity and left Clinical Quality Measures DVT/VTE Risk/Contraindication: Risk Factor Score Per Nursin RFS Level Per Nursing on Admit: 4+=Very High JAIME ROBERSON DO Mar 23, 2017 8:40 am
[2017-03-23] MEDS: CLOPIDOGREL 75 MG (PLAVIX) TABLET PO SCH (08:56)
[2017-03-23] MEDS: lisINopril 10 MG (PRINIVIL) TABLET PO SCH (08:56)
--- NOTE | 2017-03-23 10:22 | Physical Therapy Daily Note ---
PT Daily Note-Current Subjective Agreeble to PT. No complaints. Reports he is sleeping well at night. Pain Numeric Pain Scale: 0-No Pain Location: No Pain Reported Mental Status Patient Orientation: Person, Place, Time, Situation Transfers Functional [place] Measure 0=Not Assessed/NA 4=Minimal Assistance 1=Total Assistance 5=Supervision or Setup 2=Maximal Assistance 6=Modified [place] 3=Moderate Assistance 7=Complete IndependenceIRFPAI Quality Coding Scale 6 Independent with activity with or without an assistive device 5 Patient requires set up or clean up by helper. Patient completes activity by themselves 4 Supervision or touching assist (CGA). [place] provide cues , steadying assist 3 The helper provides less than half the effort to complete the activity 2 The helper provides more than half the effort to complete the activity 1 Dependent. The helper does all the effort to complete an activity 7 Patient refused to complete or attempt activity 9 The patient did not perform the activity before the current illness or injury 88 Not attempted due to Medical conditions or safety concerns Transfers (B, C, W/C) (FIM): 4 Roll Left to Right (QC): 4 Supine to/from Sit: 4 Sit to/from Stand: 4 (CGA with skilled cues for sequencing. ) Sit to Lying (QC): 4 (Touch assist and occas lift assist with the left LE; pt typically hooks his left leg but needs assist to direct onto the bed. ) Sit to Stand (QC): 4 (Min assist from low surface; CGA from elevated surface or in the // bars. ) Chair/Ucu-vo-Yrljs Xfer(QC): 4 (CGA with transfer to the right and min assist with transfer to the left., ) Pt relies heavily on the right UE for all bed mobility and transfers., Good compensation and use of the right LE as well to hook and move the left leg. Pt performed sit to from supine x 2 reps with work on adaptation and use of bed rail and right U/LE to move about. Pt has a bed at home that the head will elevate and would be able to accomodate a bed cane., Weight Bearing Right Lower Extremity: Right Full Weight Bearing Left Lower Extremity: Left Full Weight Bearing Gait Training Gait (FIM): 2 Distance (FIM): 1=up to 49 ft Distance: 8 ft x 6 Gait Assistive Device: Parallel Bars Pt able advance left LE 50% of the time and needs assist to coordinate/guide the left LE with steps 75% of the time; AFO and knee immobilizer in place on the left. Pre Gait training in the // bars to work on hip/knee extension as well as weight shift left and right with with focus on WB through the left LE as well as through the left UE. Treatments Functional pre gait and gait activities; transfer training. Assessment Current Status: Good Progress The patient shows improved ability to weight shift and advance left LE compared to when last seen by this clinician. Transfers improved as is bed mobility. Strength is progressing and he is learning adaptation techniques that are helpful as well. Pt highly motivated. Making good gains towards goals and will benefit from continued skilled PT intervnetion to work towards a mod indep level to dischrge home. PT Short Term Goals Short Term Goals Time Frame: Mar 22, 2017 Gait (FIM): 2 Distance (FIM): 1=up to 49 ft Gait Assistive Device: Walker Wale Wheelchair (FIM): 6 (met) Wheelchair distance (FIM): 3=150 ft Wheelchair Distance: 100 feet x2 PT Long-Term Goals Long-Term Goals PT Long-Term Goals Time Frame: Apr 05, 2017 Transfers (B,C,W/C) (FIM): 6 Sit to Lying (QC): 6 Lying-Sitting on Side/Bed(QC): 6 Sit to Stand (QC): 6 Rollin Roll Left to Right (QC): 6 Chair/Rjg-ys-Wrihx Xfer(QC): 6 Car Transfer (QC): 5 Does the Patient Walk: No and Walking Goal IS indicated Gait (FIM): 5 Gait distance (FIM): 3=150 ft Walk 10 feet (QC): 5 Walk 10ft-Uneven Surface(QC): 5 Walk 50ft with 2 Turns (QC): 5 Walk 150 ft (QC): 5 Gait Level of Assist: 5 Gait Assistive Device: Walker Wale Does the Pt use WC or Scooter?: Yes Wheelchair (FIM): 6 Wheelchair distance (FIM): 3=150 ft Wheel 50 feet with 2 turns (QC: 6 Stairs (FIM): 2 # of Steps: 4 1 Step (curb) (QC): 4 4 Steps (QC): 4 12 Steps (QC): 88 Picking up an Object (QC): 88 PT Plan Problem List Problem List: Activity Tolerance, Functional Strength, Safety, Balance, Gait, Transfer, Bed Mobility Treatment/Plan Treatment Plan: Continue Plan of Care Treatment Plan: Bed Mobility, Education, Functional Activity Curtis, Functional Strength, Group Therapy, Gait, Safety, Therapeutic Exercise, Transfers Treatment Duration: Apr 05, 2017 Frequency: At least 5 of 7 days/Wk (IRF) Estimated Hrs Per Day: 1.5 hours per day Patient and/or Family Agrees t: Yes Safety Risks/Education Patient Education: Transfer Techniques, Safety Issues Teaching Recipient: Patient, Family Teaching Methods: Demonstration, Discussion Response to Teaching: Verbalize Understanding, Return Demonstration Discharge Recommendations Therapy D/C Recommendations: Physical Therapy Home Care Time/GCodes Time In: 855 Time Out: 906 Total Billed Treatment Time: 71 Total Billed Treatment visit GT 41 FA 30 AARTI TARIQ PT Mar 23, 2017 10:22
--- NOTE | 2017-03-23 12:43 | Occupational Ther Daily Note ---
OT Current Status-Daily Note Subjective Pt alert, sitting in w/c. Pt agreed to therapy. No c/o pain. Mental Status/Objective Patient Orientation: Person, Place, Time, Situation Functional [place] Measure 0=Not Assessed/NA 4=Minimal Assistance 1=Total Assistance 5=Supervision or Setup 2=Maximal Assistance 6=Modified [place] 3=Moderate Assistance 7=Complete [place] ADL-Treatment Functional [place] Measure 0=Not Assessed/NA 4=Minimal Assistance 1=Total Assistance 5=Supervision or Setup 2=Maximal Assistance 6=Modified [place] 3=Moderate Assistance 7=Complete IndependenceIRFPAI Quality Coding Scale 6 Independent with activity with or without an assistive device 5 Patient requires set up or clean up by helper. Patient completes activity by themselves 4 Supervision or touching assist (CGA). [place] provide cues , steadying assist 3 The helper provides less than half the effort to complete the activity 2 The helper provides more than half the effort to complete the activity 1 Dependent. The helper does all the effort to complete an activity 7 Patient refused to complete or attempt activity 9 The patient did not perform the activity before the current illness or injury 88 Not attempted due to Medical conditions or safety concerns Other Treatment Pt completed w/c mobility to increase independence and UE strengthening. Pt was able to control descent down ramp then required 1 recovery break when ascending ramp. Pt is able to maneuver w/c throughout hospital, through doors and around corners. Pt completed UE gross motor tasks with L UE. Pt was able to grasp cones and move across body then stack on other cones using L UE. Pt was able to pinch small object then go from supination to pronation to release object in designated area. After therapy, pt sitting in w/c. All needs met. OT Short Term Goals Short Term Goals Time Frame: Mar 22, 2017 Grooming(FIM): 5 Bathing(FIM): 4 Toileting(FIM): 3 Toilet/Commode Transfer(FIM): 4 Additional Short Term Goals: 2-Verbalize Understanding, 3-ImproveStrength/Curtis 1=Demonstrate adherence to instructed precautions during ADL tasks. 2=Patient will verbalize/demonstrate understanding of assistive devices/ modifications for ADL. 3=Patient will improve strength/tolerance for activity to enable patient to perform ADL's. OT Jewel Blocker [employer] Sawyer Goals Jail Goals Time Frame: Apr 05, 2017 Eating (FIM): 6 Eating (QC): 6 Groomin Oral Hygiene (QC): 6 Bathing(FIM): 5 Shower/Bathe Self (QC): 5 Upper Body Dressing(FIM): 6 Upper Body Dressing (QC): 6 Lower Body Dressing(FIM): 5 Lower Body Dressing (QC): 5 On/Off Footwear (QC): 5 Toileting(FIM): 5 Toileting Hygiene (QC): 5 Toilet/Commode Transfer(FIM): 5 Toilet/Commode Transfer (QC): 5 Shower Transfer(FIM): 5 Additional Goals: 2-Verbalize Understanding, 3-ImproveStrength/Curtis 1=Demonstrate adherence to instructed precautions during ADL tasks. 2=Patient will verbalize/demonstrate understanding of assistive devices/ modifications for ADL. 3=Patient will improve strength/tolerance for activity to enable patient to perform ADL's. OT Education/Plan Problem List/Assessment Pt would benefit from skilled OT to increase his independence in basic self care and to decrease caregiver burden. Discharge Recommendations Plan/Recommendations: Continue POC Treatment Plan/Plan of Care Patient would benefit from OT for education, treatment and training to promote independence in ADL's, mobility, safety and/or upper extremity function for ADL' s. Plan of Care: ADL Retraining, Functional Mobility, Group Exercise/Act as Ind ( educaiton, exercise, activity tolerance, functional acitivites, socialization), UE Funct Exercise/Act, UE Neuromus Re-Ed/Coord, W/C Management Training Treatment Duration: Apr 05, 2017 Frequency: At least 5 of 7 days/Wk (IRF) Estimated Hrs Per Day: 1.5 hours per day Agreement: Yes Rehab Potential: Good Time/GCodes Start Time: 11:30 Stop Time: 12:00 Total Time Billed (hr/min): 30 Billed Treatment Time 1 visit-FA 2 (30 min) AARTI STARR Mar 23, 2017 12:43
--- NOTE | 2017-03-23 13:12 | Physical Therapy Daily Note ---
PT Daily Note-Current Subjective Agreeable to PT. No complaints. Transfers Functional [place] Measure 0=Not Assessed/NA 4=Minimal Assistance 1=Total Assistance 5=Supervision or Setup 2=Maximal Assistance 6=Modified [place] 3=Moderate Assistance 7=Complete IndependenceIRFPAI Quality Coding Scale 6 Independent with activity with or without an assistive device 5 Patient requires set up or clean up by helper. Patient completes activity by themselves 4 Supervision or touching assist (CGA). [place] provide cues , steadying assist 3 The helper provides less than half the effort to complete the activity 2 The helper provides more than half the effort to complete the activity 1 Dependent. The helper does all the effort to complete an activity 7 Patient refused to complete or attempt activity 9 The patient did not perform the activity before the current illness or injury 88 Not attempted due to Medical conditions or safety concerns Weight Bearing Right Lower Extremity: Right Full Weight Bearing Left Lower Extremity: Left Full Weight Bearing Treatments Sit to financial reserve clerk // bars with CGA. Worked on hip/knee extension with knee immob in place. Used mirror for feedback for shoulder posture and body positioning. Pt performed TKE as well as weight shifting in the bars to facilitate joint approximation of the left hip/knee. Pt stood a good 10-11 minutes before sitting. Nu Step x 15 minutes level 6 to facilitate left LE extension and CV activity. Pt in wheelchair post treatmehnt with needs met. Pt moved to from the gym in wheelchair 150 ft x 3 reps mod indep. Assessment Current Status: Excellent Progress Pt progressing. Increased awareness of hip/knee control PT Short Term Goals Short Term Goals Time Frame: Mar 22, 2017 Gait (FIM): 2 Distance (FIM): 1=up to 49 ft Gait Assistive Device: Walker Wale Wheelchair (FIM): 6 (met) Wheelchair distance (FIM): 3=150 ft Wheelchair Distance: 100 feet x2 PT Senior Living Goals Bricklayer Paving Brick Goals PT Senior Living Goals Time Frame: Apr 05, 2017 Transfers (B,C,W/C) (FIM): 6 Sit to Lying (QC): 6 Lying-Sitting on Side/Bed(QC): 6 Sit to Stand (QC): 6 Rollin Roll Left to Right (QC): 6 Chair/Yoc-wt-Uuyun Xfer(QC): 6 Car Transfer (QC): 5 Does the Patient Walk: No and Walking Goal IS indicated Gait (FIM): 5 Gait distance (FIM): 3=150 ft Walk 10 feet (QC): 5 Walk 10ft-Uneven Surface(QC): 5 Walk 50ft with 2 Turns (QC): 5 Walk 150 ft (QC): 5 Gait Level of Assist: 5 Gait Assistive Device: Walker Wale Does the Pt use WC or Scooter?: Yes Wheelchair (FIM): 6 Wheelchair distance (FIM): 3=150 ft Wheel 50 feet with 2 turns (QC: 6 Stairs (FIM): 2 # of Steps: 4 1 Step (curb) (QC): 4 4 Steps (QC): 4 12 Steps (QC): 88 Picking up an Object (QC): 88 PT Plan Problem List Problem List: Activity Tolerance, Functional Strength, Safety, Balance, Gait, Transfer, Bed Mobility Treatment/Plan Treatment Plan: Continue Plan of Care Treatment Plan: Bed Mobility, Education, Functional Activity Curtis, Functional Strength, Group Therapy, Gait, Safety, Therapeutic Exercise, Transfers Treatment Duration: Apr 05, 2017 Frequency: At least 5 of 7 days/Wk (IRF) Estimated Hrs Per Day: 1.5 hours per day Patient and/or Family Agrees t: Yes Discharge Recommendations Therapy D/C Recommendations: Physical Therapy Home Care Time/GCodes Time In: 1230 Time Out: 1308 Total Billed Treatment Time: 38 Total Billed Treatment visit FA 23 EX 15 AARTI TARIQ PT Mar 23, 2017 13:12
--- NOTE | 2017-03-23 15:58 | PM & R (SOAP) Progress Note ---
Subjective Time Seen by Provider: 15:55 Subjective/Events-last exam Patient was seen in her room this afternoon Patient CGA for coming to sausage stringer / / bars. Patient reports that pass went well last weekend and that car transfers went ok.He requests another one for this weekend Objective Exam Last Set of Vital Signs Vital Signs Date Time Temp Pulse Resp B/P (MAP) Pulse Ox O2 Delivery O2 Flow Rate FiO2 03/23/17 09:50 Room Air 03/23/17 06:00 98.7 76 17 130/83 (99) 97 Capillary Refill : Less Than 3 Seconds I&O Intake and Output 03/23/17 00:00 Intake Total 1725 ml Balance 1725 ml Intake Oral 1725 ml # Voids 7 General: Alert, Oriented X3, Cooperative, No Acute Distress HEENT: Atraumatic, PERRLA, EOMI, Mucous Memb Moist/[place] Neck: Supple, No JVD Lungs: Clear to Auscultation Heart: Regular Rate Abdomen: Normal Bowel Sounds, Soft, No Tenderness Extremities: No Edema Neuro: Other (Left LE flaccid with trace return LUE) Psych/Mental Status: Mental Status NL Results Lab Laboratory Tests 03/20/17 16:15: Glucometer 108 03/21/17 05:47: Glucometer 118H 03/21/17 16:36: Glucometer 103 03/22/17 05:02: Glucometer 121H 03/22/17 16:01: Glucometer 98 03/23/17 05:30: Glucometer 128H Assessment/Plan Assessment Rt MCA CVA with Left HP HTN controlled DM2 controlled Tobacco abuse declines Patch 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 GERD without espohagitis AAA without rupture Mild nausea-Zofran ordered prn-improved Constipation meds to be adjusted as needed Plan Continue PT/OT ST has assessed and signed off Decreased Accucheks as per above-stabl Patient requests Pet pass-see orders Patient has 2 sons and a daughter in this area to help out upon discharge Zofran for nausea-improved Current meds reviewed Accucheks noted Appreciate ABD Xray results Adjust meds for constipation as needed TLOA as per above for this weekend-see orders Next Team Conference tomorrow 03-24-17 NNEKA MARTIN MD Mar 23, 2017 15:58
[2017-03-23 19:38] VITALS: BP 117/72
[2017-03-23] MEDS: ATORVASTATIN 40 MG (LIPITOR) TABLET PO SCH (20:11)
[2017-03-24 06:04] VITALS: BP 125/80
[2017-03-24] MEDS: metFORMIN 500 MG (GLUCOPHAGE) TAB PO SCH ×2 (06:14→16:21)
[2017-03-24] MEDS: GLIMEPIRIDE 2 MG (AMARYL) TAB PO SCH (06:14)
[2017-03-24] MEDS: lisINopril 10 MG (PRINIVIL) TABLET PO SCH (07:55)
[2017-03-24] MEDS: CLOPIDOGREL 75 MG (PLAVIX) TABLET PO SCH (07:55)
--- NOTE | 2017-03-24 08:26 | Progress Note (SOAP) ---
Subjective Time Seen by Provider: 08:25 Subjective/Events-last exam CVA. Patient improving with left upper extremity. 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 Hypertension. Hyperlipidemia. Tobacco usage. Abdominal aortic aneurysm. GERD . 03/10/17. 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 Hypertension. Hyperlipidemia. Tobacco usage. Patient working hard and moving left arm today. . 03/11/17. 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 Hypertension. Hyperlipidemia. Tobacco usage. Patient working hard and improving. . 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 Hypertension. Hyperlipidemia Tobacco usage. Patient stomach doing better . 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 nauseous. Hypertension. Hyperlipidemia. Tobacco usage. . 03/16/17. 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 Hypertension. Constipation. Hyperlipidemia. Tobacco usage. . 03/17/17. 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 Hypertension. Constipation. Hyperlipidemia. Patient seems positive. Patient working hard . 03/18/17. 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 Hypertension. Did not have a bowel movement today. Hyperlipidemia. Patient working on walking. . 03/19/17. 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 Hypertension. Hyperlipidemia. Constipation resolved. . 03/22/17. 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 Hypertension. Hyperlipidemia. Patient doing better with left upper extremity and left lower extremity. . 03/23. 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 Hypertension.. patient doing better with upper extremity than lower extremity and left. . 03/24/17. 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 Hypertension. Patient improving with left upper extremity Clinical Quality Measures DVT/VTE Risk/Contraindication: Risk Factor Score Per Nursin RFS Level Per Nursing on Admit: 4+=Very High JAIME ROBERSON DO Mar 24, 2017 08:26
--- NOTE | 2017-03-24 08:53 | Occupational Ther Daily Note ---
OT Current Status-Daily Note Subjective Pt sitting in w/c. Daughter present in room. Pt agreed to therapy. No c/o pain. Mental Status/Objective Patient Orientation: Person, Place, Time, Situation Functional [place] Measure 0=Not Assessed/NA 4=Minimal Assistance 1=Total Assistance 5=Supervision or Setup 2=Maximal Assistance 6=Modified [place] 3=Moderate Assistance 7=Complete [place] ADL-Treatment Functional [place] Measure 0=Not Assessed/NA 4=Minimal Assistance 1=Total Assistance 5=Supervision or Setup 2=Maximal Assistance 6=Modified [place] 3=Moderate Assistance 7=Complete IndependenceIRFPAI Quality Coding Scale 6 Independent with activity with or without an assistive device 5 Patient requires set up or clean up by helper. Patient completes activity by themselves 4 Supervision or touching assist (CGA). [place] provide cues , steadying assist 3 The helper provides less than half the effort to complete the activity 2 The helper provides more than half the effort to complete the activity 1 Dependent. The helper does all the effort to complete an activity 7 Patient refused to complete or attempt activity 9 The patient did not perform the activity before the current illness or injury 88 Not attempted due to Medical conditions or safety concerns Grooming (FIM): 6 (Sitting at w/c level, pt is able to complete grooming in front of sink.) Oral Hygiene (QC): 6 Bathing (FIM): 4 (Using shower bench, grabbar, long handle sponge and hand held shower pt is able to complete bathing except buttocks. Pt pulls to stand then assist to cleanse buttocks due to decreased balance in dynamic standing.) Bathing Location: L Arm, R Arm, L Upper Leg, R Upper Leg, L Lower Leg ( including foot), R Lower Leg (including foot), Chest, Abdomen, Perineal Area Shower/Bathe Self (QC): 3 Upper Body (FIM): 6 (Pt retrieves clothing at w/c level then is able to don by self.) Upper Body Dressing (QC): 6 Lower Body Dressing (FIM): 3 (Assist to doff lower body clothing over L foot. Assist in standing for balance while pt hikes pants over hips. Pt is able to don lower body clothing over feet, assist to keep L LE over R knee while pt dons clothing.) Lower Body Dressing (QC): 3 On/Off Footwear (QC): 4 Shower Transfer(FIM): 3 (Mod A to transfer to L side, min a to transfer to r side using grabbars and shower bench.) After therapy, pt sitting in w/c with call light/phone in reach. All needs met in room. OT Short Term Goals Short Term Goals Time Frame: Mar 22, 2017 Grooming(FIM): 5 Bathing(FIM): 4 Toileting(FIM): 3 Toilet/Commode Transfer(FIM): 4 Additional Short Term Goals: 2-Verbalize Understanding, 3-ImproveStrength/Curtis 1=Demonstrate adherence to instructed precautions during ADL tasks. 2=Patient will verbalize/demonstrate understanding of assistive devices/ modifications for ADL. 3=Patient will improve strength/tolerance for activity to enable patient to perform ADL's. OT Longterm Goals Nursing Faculty Goals Time Frame: Apr 05, 2017 Eating (FIM): 6 Eating (QC): 6 Groomin Oral Hygiene (QC): 6 Bathing(FIM): 5 Shower/Bathe Self (QC): 5 Upper Body Dressing(FIM): 6 Upper Body Dressing (QC): 6 Lower Body Dressing(FIM): 5 Lower Body Dressing (QC): 5 On/Off Footwear (QC): 5 Toileting(FIM): 5 Toileting Hygiene (QC): 5 Toilet/Commode Transfer(FIM): 5 Toilet/Commode Transfer (QC): 5 Shower Transfer(FIM): 5 Additional Goals: 2-Verbalize Understanding, 3-ImproveStrength/Curtis 1=Demonstrate adherence to instructed precautions during ADL tasks. 2=Patient will verbalize/demonstrate understanding of assistive devices/ modifications for ADL. 3=Patient will improve strength/tolerance for activity to enable patient to perform ADL's. OT Education/Plan Problem List/Assessment Pt would benefit from skilled OT to increase his independence in basic self care and to decrease caregiver burden. Discharge Recommendations Plan/Recommendations: Continue POC Treatment Plan/Plan of Care Patient would benefit from OT for education, treatment and training to promote independence in ADL's, mobility, safety and/or upper extremity function for ADL' s. Plan of Care: ADL Retraining, Functional Mobility, Group Exercise/Act as Ind ( educaiton, exercise, activity tolerance, functional acitivites, socialization), UE Funct Exercise/Act, UE Neuromus Re-Ed/Coord, W/C Management Training Treatment Duration: Apr 05, 2017 Frequency: At least 5 of 7 days/Wk (IRF) Estimated Hrs Per Day: 1.5 hours per day Agreement: Yes Rehab Potential: Good Time/GCodes Start Time: 08:00 Stop Time: 09:00 Total Time Billed (hr/min): 60 Billed Treatment Time 1 visit-ADL 4 (60 min) AARTI STARR Mar 24, 2017 08:53
--- NOTE | 2017-03-24 10:17 | PM & R (SOAP) Progress Note ---
Subjective Time Seen by Provider: 08:15 Subjective/Events-last exam Patient was seen in his room this AM Patient min assist for transfers Review of Systems Neurological: Weakness Objective Exam Last Set of Vital Signs Vital Signs Date Time Temp Pulse Resp B/P (MAP) Pulse Ox O2 Delivery O2 Flow Rate FiO2 03/24/17 09:00 Room Air 03/24/17 06:04 97.9 78 19 125/80 (95) 96 Capillary Refill : Less Than 3 Seconds I&O Intake and Output 03/23/17 23:59 Intake Total 1060 ml Balance 1060 ml Intake Oral 1060 ml # Voids 5 # Bowel Movements 1 General: Alert, Oriented X3, Cooperative, No Acute Distress HEENT: Atraumatic, PERRLA, EOMI, Mucous Memb Moist/[place] Neck: Supple, No JVD Lungs: Clear to Auscultation Heart: Regular Rate Abdomen: Normal Bowel Sounds, Soft, No Tenderness Extremities: No Edema Neuro: Other (Left LE flaccid with trace return LUE) Psych/Mental Status: Mental Status NL Results Lab Laboratory Tests 03/21/17 16:36: Glucometer 103 03/22/17 05:02: Glucometer 121H 03/22/17 16:01: Glucometer 98 03/23/17 05:30: Glucometer 128H 03/23/17 16:25: Glucometer 119H 03/24/17 04:50: Glucometer 128H Assessment/Plan Assessment Rt MCA CVA with Left HP HTN controlled DM2 controlled Tobacco abuse declines Patch 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 GERD without espohagitis AAA without rupture Mild nausea-Zofran ordered prn-improved Constipation meds to be adjusted as needed-improved had BM Plan Continue PT/OT ST has assessed and signed off Decreased Accucheks as per above-stabl Patient requests Pet pass-see orders Patient has 2 sons and a daughter in this area to help out upon discharge Zofran for nausea-improved Current meds reviewed Accucheks noted Appreciate ABD Xray results Adjust meds for constipation as needed TLOA as per above for this weekend-see orders Next Team Conference later today-See report for full functional update and POC and NNEKA CARDENAS MD Mar 24, 2017 10:17 am
--- NOTE | 2017-03-24 12:17 | Physical Therapy Daily Note ---
PT Daily Note-Current Subjective Pt is sitting in [facility] in room pre tx and has no complaints of pain and agrees to PT. Pain Numeric Pain Scale: 0-No Pain Location: No Pain Reported Appearance Pt is sitting in [facility] post tx and has nurse call, phone, and tray within reach. Mental Status Patient Orientation: Normal For Age Transfers Functional [place] Measure 0=Not Assessed/NA 4=Minimal Assistance 1=Total Assistance 5=Supervision or Setup 2=Maximal Assistance 6=Modified [place] 3=Moderate Assistance 7=Complete IndependenceIRFPAI Quality Coding Scale 6 Independent with activity with or without an assistive device 5 Patient requires set up or clean up by helper. Patient completes activity by themselves 4 Supervision or touching assist (CGA). [place] provide cues , steadying assist 3 The helper provides less than half the effort to complete the activity 2 The helper provides more than half the effort to complete the activity 1 Dependent. The helper does all the effort to complete an activity 7 Patient refused to complete or attempt activity 9 The patient did not perform the activity before the current illness or injury 88 Not attempted due to Medical conditions or safety concerns Transfers (B, C, W/C) (FIM): 4 Scootin Rollin Supine to/from Sit: 4 Sit to/from Stand: 4 Bed to/from Chair: 4 Pt requires CGA for most transfers to ensure safety. Pt requires verbal cues for hand placement and technique for rolling and bed mobility when not using hand rails. Weight Bearing Right Lower Extremity: Right Full Weight Bearing Left Lower Extremity: Left Full Weight Bearing Gait Training Does the Patient Walk?: Yes Gait (FIM): 1 Distance: 8 feet x 4 in parallel bars, 25 feet using wale walker Gait Level of Assist: 2 Gait Persons Needed: 2 Gait Assistive Device: Walker Wale Knee immobilizer and AFO used on the LLE. Pt requires max A with two therapists to ensure safety during ambulation. Pt requires manual assistance to prevent adduction of the LLE during swing. Wheelchair Training Does the Pt Use a Wheelchair?: Yes Wheelchair (FIM): 2 Distance: 100 feet x2 Wheelchair Level of Assist: 5 Type of Wheelchair: Manual Exercises Supine Ex: Bridging (10 x2), Rolling (2 x2 to each side) Treatments Pt performed [facility] mobility, bed mobility, functional activity, and gait training. Assessment Current Status: Good Progress Pt was able to walk using the wale walker, knee immobilizer, and AFO for 25 feet with max A of two therapists. Pt is improving bed mobility and requires verbal cues for hand placement and safety. PT Short Term Goals Short Term Goals Time Frame: Mar 22, 2017 Gait (FIM): 2 Distance (FIM): 1=up to 49 ft Gait Assistive Device: Walker Wale Wheelchair (FIM): 6 (met) Wheelchair distance (FIM): 3=150 ft Wheelchair Distance: 100 feet x2 PT [employer] Administrator Goals Snf Goals PT Snf Goals Time Frame: Apr 05, 2017 Transfers (B,C,W/C) (FIM): 6 Sit to Lying (QC): 6 Lying-Sitting on Side/Bed(QC): 6 Sit to Stand (QC): 6 Rollin Roll Left to Right (QC): 6 Chair/Cdu-tb-Gxlzz Xfer(QC): 6 Car Transfer (QC): 5 Does the Patient Walk: No and Walking Goal IS indicated Gait (FIM): 5 Gait distance (FIM): 3=150 ft Walk 10 feet (QC): 5 Walk 10ft-Uneven Surface(QC): 5 Walk 50ft with 2 Turns (QC): 5 Walk 150 ft (QC): 5 Gait Level of Assist: 5 Gait Assistive Device: Walker Wale Does the Pt use WC or Scooter?: Yes Wheelchair (FIM): 6 Wheelchair distance (FIM): 3=150 ft Wheel 50 feet with 2 turns (QC: 6 Stairs (FIM): 2 # of Steps: 4 1 Step (curb) (QC): 4 4 Steps (QC): 4 12 Steps (QC): 88 Picking up an Object (QC): 88 PT Plan Problem List Problem List: Activity Tolerance, Functional Strength, Safety, Balance, Gait, Transfer, Bed Mobility, ROM Treatment/Plan Treatment Plan: Continue Plan of Care Treatment Plan: Bed Mobility, Education, Functional Activity Curtis, Functional Strength, Group Therapy, Gait, Safety, Therapeutic Exercise, Transfers Treatment Duration: Apr 05, 2017 Frequency: At least 5 of 7 days/Wk (IRF) Estimated Hrs Per Day: 1.5 hours per day Patient and/or Family Agrees t: Yes Safety Risks/Education Patient Education: Gait Training, Transfer Techniques, Correct Positioning, W/ C Management, Safety Issues Teaching Recipient: Patient Teaching Methods: Demonstration, Discussion Response to Teaching: Reinforcement Needed Time/GCodes Time In: 1000 Time Out: 1100 Total Billed Treatment Time: 60 Total Billed Treatment 1 visit 25 min GT 15 min WC 20 min FA AARTI TARIQ PT Mar 24, 2017 12:17
--- NOTE | 2017-03-24 12:59 | Occupational Ther Daily Note ---
OT Current Status-Daily Note Subjective Pt sitting at [facility] table in [facility] area. Pt agreed to therapy. No c/o pain at this time. Mental Status/Objective Patient Orientation: Person, Place, Time, Situation Functional [place] Measure 0=Not Assessed/NA 4=Minimal Assistance 1=Total Assistance 5=Supervision or Setup 2=Maximal Assistance 6=Modified [place] 3=Moderate Assistance 7=Complete [place] ADL-Treatment Pt is able to maneuver w/c from room to [facility] area to sit at table for lunch. Pt completed own food order. Pt required assist to open containers and packages for set up of food. Pt then was able to use regular utensils to cut food into small pieces and spear with fork. Pt could place L UE onto table to stabilize plate. Using R UE for cutting and spearing food. After therapy, pt sitting in w/c maneuvering around [facility] area. All needs met in room. Functional [place] Measure 0=Not Assessed/NA 4=Minimal Assistance 1=Total Assistance 5=Supervision or Setup 2=Maximal Assistance 6=Modified [place] 3=Moderate Assistance 7=Complete IndependenceIRFPAI Quality Coding Scale 6 Independent with activity with or without an assistive device 5 Patient requires set up or clean up by helper. Patient completes activity by themselves 4 Supervision or touching assist (CGA). [place] provide cues , steadying assist 3 The helper provides less than half the effort to complete the activity 2 The helper provides more than half the effort to complete the activity 1 Dependent. The helper does all the effort to complete an activity 7 Patient refused to complete or attempt activity 9 The patient did not perform the activity before the current illness or injury 88 Not attempted due to Medical conditions or safety concerns Eating (FIM): 5 Eating (QC): 5 OT Short Term Goals Short Term Goals Time Frame: Mar 22, 2017 Grooming(FIM): 5 Bathing(FIM): 4 Toileting(FIM): 3 Toilet/Commode Transfer(FIM): 4 Additional Short Term Goals: 2-Verbalize Understanding, 3-ImproveStrength/Curtis 1=Demonstrate adherence to instructed precautions during ADL tasks. 2=Patient will verbalize/demonstrate understanding of assistive devices/ modifications for ADL. 3=Patient will improve strength/tolerance for activity to enable patient to perform ADL's. OT Fci Goals Fci Goals Time Frame: Apr 05, 2017 Eating (FIM): 6 Eating (QC): 6 Groomin Oral Hygiene (QC): 6 Bathing(FIM): 5 Shower/Bathe Self (QC): 5 Upper Body Dressing(FIM): 6 Upper Body Dressing (QC): 6 Lower Body Dressing(FIM): 5 Lower Body Dressing (QC): 5 On/Off Footwear (QC): 5 Toileting(FIM): 5 Toileting Hygiene (QC): 5 Toilet/Commode Transfer(FIM): 5 Toilet/Commode Transfer (QC): 5 Shower Transfer(FIM): 5 Additional Goals: 2-Verbalize Understanding, 3-ImproveStrength/Curtis 1=Demonstrate adherence to instructed precautions during ADL tasks. 2=Patient will verbalize/demonstrate understanding of assistive devices/ modifications for ADL. 3=Patient will improve strength/tolerance for activity to enable patient to perform ADL's. OT Education/Plan Problem List/Assessment Pt would benefit from skilled OT to increase his independence in basic self care and to decrease caregiver burden. Discharge Recommendations Plan/Recommendations: Continue POC Treatment Plan/Plan of Care Patient would benefit from OT for education, treatment and training to promote independence in ADL's, mobility, safety and/or upper extremity function for ADL' s. Plan of Care: ADL Retraining, Functional Mobility, Group Exercise/Act as Ind ( educaiton, exercise, activity tolerance, functional acitivites, socialization), UE Funct Exercise/Act, UE Neuromus Re-Ed/Coord, W/C Management Training Treatment Duration: Apr 05, 2017 Frequency: At least 5 of 7 days/Wk (IRF) Estimated Hrs Per Day: 1.5 hours per day Agreement: Yes Rehab Potential: Good Time/GCodes Start Time: 11:30 Stop Time: 12:00 Total Time Billed (hr/min): 30 Billed Treatment Time 1 visit-FA 2 (30 min) AARTI STARR Mar 24, 2017 12:59
--- NOTE | 2017-03-24 14:49 | Physical Therapy Daily Note ---
PT Daily Note-Current Subjective Pt is sitting in [facility] in therapy gym pre tx and agrees to PT and has no complaints of pain. Pain Numeric Pain Scale: 0-No Pain Location: No Pain Reported Appearance Pt is sitting in [facility] in visiting area post tx with all needs met at this time. Mental Status Patient Orientation: Normal For Age Transfers Functional [place] Measure 0=Not Assessed/NA 4=Minimal Assistance 1=Total Assistance 5=Supervision or Setup 2=Maximal Assistance 6=Modified [place] 3=Moderate Assistance 7=Complete IndependenceIRFPAI Quality Coding Scale 6 Independent with activity with or without an assistive device 5 Patient requires set up or clean up by helper. Patient completes activity by themselves 4 Supervision or touching assist (CGA). [place] provide cues , steadying assist 3 The helper provides less than half the effort to complete the activity 2 The helper provides more than half the effort to complete the activity 1 Dependent. The helper does all the effort to complete an activity 7 Patient refused to complete or attempt activity 9 The patient did not perform the activity before the current illness or injury 88 Not attempted due to Medical conditions or safety concerns Transfers (B, C, W/C) (FIM): 4 Sit to/from Stand: 4 Pt requires CGA for sit to stand for safety. Weight Bearing Right Lower Extremity: Right Full Weight Bearing Left Lower Extremity: Left Full Weight Bearing Gait Training Does the Patient Walk?: Yes Gait (FIM): 1 Distance: 15 feet x2 Gait Level of Assist: 2 Gait Persons Needed: 2 Gait Assistive Device: Walker Wale Knee immobilizer and AFO on the LLE. Pt utilized Solo Step for gait training. Wheelchair Training Does the Pt Use a Wheelchair?: Yes Wheelchair (FIM): 1 Distance: 10 feet Wheelchair Level of Assist: 5 Type of Wheelchair: Manual Treatments Pt performed functional mobility and gait training. Assessment Current Status: Good Progress Pt tolerated walking 15 feet x2 with use of Solo Step for gait training. Pt requires two therapists for manual assistance and safety. PT Short Term Goals Short Term Goals Time Frame: Mar 22, 2017 Gait (FIM): 2 Distance (FIM): 1=up to 49 ft Gait Assistive Device: Walker Wale Wheelchair (FIM): 6 (met) Wheelchair distance (FIM): 3=150 ft Wheelchair Distance: 100 feet x2 PT Silver Chaser Goals Silver Chaser Goals PT Intermediate Goals Time Frame: Apr 05, 2017 Transfers (B,C,W/C) (FIM): 6 Sit to Lying (QC): 6 Lying-Sitting on Side/Bed(QC): 6 Sit to Stand (QC): 6 Rollin Roll Left to Right (QC): 6 Chair/Yov-ln-Betvg Xfer(QC): 6 Car Transfer (QC): 5 Does the Patient Walk: No and Walking Goal IS indicated Gait (FIM): 5 Gait distance (FIM): 3=150 ft Walk 10 feet (QC): 5 Walk 10ft-Uneven Surface(QC): 5 Walk 50ft with 2 Turns (QC): 5 Walk 150 ft (QC): 5 Gait Level of Assist: 5 Gait Assistive Device: Walker Wale Does the Pt use WC or Scooter?: Yes Wheelchair (FIM): 6 Wheelchair distance (FIM): 3=150 ft Wheel 50 feet with 2 turns (QC: 6 Stairs (FIM): 2 # of Steps: 4 1 Step (curb) (QC): 4 4 Steps (QC): 4 12 Steps (QC): 88 Picking up an Object (QC): 88 PT Plan Problem List Problem List: Activity Tolerance, Functional Strength, Safety, Balance, Gait, Transfer, Bed Mobility, ROM Treatment/Plan Treatment Plan: Continue Plan of Care Treatment Plan: Bed Mobility, Education, Functional Activity Curtis, Functional Strength, Group Therapy, Gait, Safety, Therapeutic Exercise, Transfers Treatment Duration: Apr 05, 2017 Frequency: At least 5 of 7 days/Wk (IRF) Estimated Hrs Per Day: 1.5 hours per day Patient and/or Family Agrees t: Yes Safety Risks/Education Patient Education: Gait Training, Transfer Techniques, Safety Issues Teaching Recipient: Patient Teaching Methods: Demonstration, Discussion Response to Teaching: Reinforcement Needed Time/GCodes Time In: 1415 Time Out: 1445 Total Billed Treatment Time: 30 Total Billed Treatment 1 visit 30 min GT AARTI TARIQ PT Mar 24, 2017 14:49
[2017-03-24 19:17] VITALS: BP 121/75
[2017-03-24] MEDS: ATORVASTATIN 40 MG (LIPITOR) TABLET PO SCH (20:08)
[2017-03-25 04:55] VITALS: BP 118/73
[2017-03-25] MEDS: GLIMEPIRIDE 2 MG (AMARYL) TAB PO SCH (06:38)
[2017-03-25] MEDS: metFORMIN 500 MG (GLUCOPHAGE) TAB PO SCH ×2 (06:38→17:14)
--- NOTE | 2017-03-25 07:04 | Occupational Ther Daily Note ---
OT Current Status-Daily Note Subjective Pt alert, sitting in w/c. Pt agreed to therapy. No c/o pain. Mental Status/Objective Patient Orientation: Person, Place, Time, Situation Functional [place] Measure 0=Not Assessed/NA 4=Minimal Assistance 1=Total Assistance 5=Supervision or Setup 2=Maximal Assistance 6=Modified [place] 3=Moderate Assistance 7=Complete [place] ADL-Treatment Pt completed own grooming at w/c level in front of sink, per pt report. Functional [place] Measure 0=Not Assessed/NA 4=Minimal Assistance 1=Total Assistance 5=Supervision or Setup 2=Maximal Assistance 6=Modified [place] 3=Moderate Assistance 7=Complete IndependenceIRFPAI Quality Coding Scale 6 Independent with activity with or without an assistive device 5 Patient requires set up or clean up by helper. Patient completes activity by themselves 4 Supervision or touching assist (CGA). [place] provide cues , steadying assist 3 The helper provides less than half the effort to complete the activity 2 The helper provides more than half the effort to complete the activity 1 Dependent. The helper does all the effort to complete an activity 7 Patient refused to complete or attempt activity 9 The patient did not perform the activity before the current illness or injury 88 Not attempted due to Medical conditions or safety concerns Other Treatment Pt maneuvered w/c to therapy gym. Completed arm bike 15 min duration at 20 spaulding resistance to increase strength and AROM for daily functional tasks. Pt was able to hold onto arm bike handle for 3 min without truck manager releasing then required wrapping hand to handle for 12 min. Pt then worked on supination/ pronation and pincer truck manager task to increase AROM and strength of L UE. Pt then worked on static standing without holding on with R/L UE. Pt tended to lean toward L side. Attempting to work on good balance while completing lower body dressing in standing. Pt then maneuvered w/c back to room. Call light/phone in reach. All needs met in room. OT Short Term Goals Short Term Goals Time Frame: Mar 22, 2017 Grooming(FIM): 5 Bathing(FIM): 4 Toileting(FIM): 3 Toilet/Commode Transfer(FIM): 4 Additional Short Term Goals: 2-Verbalize Understanding, 3-ImproveStrength/Curtis 1=Demonstrate adherence to instructed precautions during ADL tasks. 2=Patient will verbalize/demonstrate understanding of assistive devices/ modifications for ADL. 3=Patient will improve strength/tolerance for activity to enable patient to perform ADL's. OT Clean Up Supervisor Goals Clean Up Supervisor Goals Time Frame: Apr 05, 2017 Eating (FIM): 6 Eating (QC): 6 Groomin Oral Hygiene (QC): 6 Bathing(FIM): 5 Shower/Bathe Self (QC): 5 Upper Body Dressing(FIM): 6 Upper Body Dressing (QC): 6 Lower Body Dressing(FIM): 5 Lower Body Dressing (QC): 5 On/Off Footwear (QC): 5 Toileting(FIM): 5 Toileting Hygiene (QC): 5 Toilet/Commode Transfer(FIM): 5 Toilet/Commode Transfer (QC): 5 Shower Transfer(FIM): 5 Additional Goals: 2-Verbalize Understanding, 3-ImproveStrength/Curtis 1=Demonstrate adherence to instructed precautions during ADL tasks. 2=Patient will verbalize/demonstrate understanding of assistive devices/ modifications for ADL. 3=Patient will improve strength/tolerance for activity to enable patient to perform ADL's. OT Education/Plan Problem List/Assessment Pt would benefit from skilled OT to increase his independence in basic self care and to decrease caregiver burden. Discharge Recommendations Plan/Recommendations: Continue POC Treatment Plan/Plan of Care Patient would benefit from OT for education, treatment and training to promote independence in ADL's, mobility, safety and/or upper extremity function for ADL' s. Plan of Care: ADL Retraining, Functional Mobility, Group Exercise/Act as Ind ( educaiton, exercise, activity tolerance, functional acitivites, socialization), UE Funct Exercise/Act, UE Neuromus Re-Ed/Coord, W/C Management Training Treatment Duration: Apr 05, 2017 Frequency: At least 5 of 7 days/Wk (IRF) Estimated Hrs Per Day: 1.5 hours per day Agreement: Yes Rehab Potential: Good Time/GCodes Start Time: 07:00 Stop Time: 08:00 Total Time Billed (hr/min): 60 Billed Treatment Time 1 visit-NM 4 (60 min) AARTI STARR Mar 25, 2017 07:04
[2017-03-25] MEDS: lisINopril 10 MG (PRINIVIL) TABLET PO SCH (08:21)
[2017-03-25] MEDS: CLOPIDOGREL 75 MG (PLAVIX) TABLET PO SCH (08:21)
--- NOTE | 2017-03-25 08:39 | Progress Note (SOAP) ---
Subjective Time Seen by Provider: 08:39 Subjective/Events-last exam Patient feeling okay today. Patient moving left upper extremity better. Patient voices no complaints Objective Exam Vital Signs Date Time Temp Pulse Resp B/P (MAP) Pulse Ox O2 Delivery O2 Flow Rate FiO2 03/25/17 04:55 96.9 71 18 118/73 (88) 98 Room Air 03/24/17 20:30 Room Air 03/24/17 19:17 97.7 78 14 121/75 (90) 96 Room Air 03/24/17 09:00 Room Air I & O 03/25/17 07:00 Intake Total 1560 ml Balance 1560 ml Capillary Refill : Less Than 3 Seconds General Appearance: No Apparent Distress HEENT: Normal ENT Inspection Neck: Full Range of Motion, Normal Inspection Respiratory: Chest Non Tender, Normal Breath Sounds, No Accessory Muscle Use, No Respiratory Distress Cardiovascular: Regular Rate, Rhythm Results Lab Laboratory Tests 03/24/17 16:28: Glucometer 134H 03/25/17 05:07: Glucometer 110 Assessment/Plan Assessment/Plan Assess & Plan/Chief Complaint 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 Hypertension. Hyperlipidemia. Tobacco usage. Abdominal aortic aneurysm. GERD . 03/10/17. 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 Hypertension. Hyperlipidemia. Tobacco usage. Patient working hard and moving left arm today. . 03/11/17. 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 Hypertension. Hyperlipidemia. Tobacco usage. Patient working hard and improving. . 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 Hypertension. Hyperlipidemia Tobacco usage. Patient stomach doing better . 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 nauseous. Hypertension. Hyperlipidemia. Tobacco usage. . 03/16/17. 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 Hypertension. Constipation. Hyperlipidemia. Tobacco usage. . 03/17/17. 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 Hypertension. Constipation. Hyperlipidemia. Patient seems positive. Patient working hard . 03/18/17. 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 Hypertension. Did not have a bowel movement today. Hyperlipidemia. Patient working on walking. . 03/19/17. 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 Hypertension. Hyperlipidemia. Constipation resolved. . 03/22/17. 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 Hypertension. Hyperlipidemia. Patient doing better with left upper extremity and left lower extremity. . 03/23. 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 Hypertension.. patient doing better with upper extremity than lower extremity and left. . 03/24/17. 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 Hypertension. Patient improving with left upper extremity. . 03/25/17. 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 Hypertension. Patient doing better with his left upper extremity Clinical Quality Measures DVT/VTE Risk/Contraindication: Risk Factor Score Per Nursin RFS Level Per Nursing on Admit: 4+=Very High JAIME ROBERSON DO Mar 25, 2017 08:39
--- NOTE | 2017-03-25 09:41 | PM & R (SOAP) Progress Note ---
Subjective Time Seen by Provider: 08:00 Subjective/Events-last exam Patient was seen in his room this AM Patient Min assist for transfers Objective Exam Last Set of Vital Signs Vital Signs Date Time Temp Pulse Resp B/P (MAP) Pulse Ox O2 Delivery O2 Flow Rate FiO2 03/25/17 04:55 96.9 71 18 118/73 (88) 98 Room Air Capillary Refill : Less Than 3 Seconds I&O Intake and Output 03/25/17 00:00 Intake Total 1560 ml Balance 1560 ml Intake Oral 1560 ml # Voids 6 # Bowel Movements 1 General: Alert, Oriented X3, Cooperative, No Acute Distress HEENT: Atraumatic, PERRLA, EOMI, Mucous Memb Moist/Joice Neck: Supple, No JVD Lungs: Clear to Auscultation Heart: Regular Rate Abdomen: Normal Bowel Sounds, Soft, No Tenderness Extremities: No Edema Neuro: Other (Left LE flaccid with trace return LUE) Psych/Mental Status: Mental Status NL Results Lab Laboratory Tests 03/22/17 16:01: Glucometer 98 03/23/17 05:30: Glucometer 128H 03/23/17 16:25: Glucometer 119H 03/24/17 04:50: Glucometer 128H 03/24/17 16:28: Glucometer 134H 03/25/17 05:07: Glucometer 110 Assessment/Plan Assessment Rt MCA CVA with Left HP HTN controlled DM2 controlled Tobacco abuse declines Patch 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 GERD without espohagitis AAA without rupture Mild nausea-Zofran ordered prn-improved Constipation meds to be adjusted as needed-improved had BM Plan Continue PT/OT ST has assessed and signed off Decreased Accucheks as per above-stabl Patient requests Pet pass-see orders Patient has 2 sons and a daughter in this area to help out upon discharge Zofran for nausea-improved Current meds reviewed Accucheks noted Appreciate ABD Xray results Adjust meds for constipation as needed TLOA as per above for this weekend-see orders Team Conference held yesterday-See report for full functional update and POC and NNEKA CADRENAS MD Mar 25, 2017 09:41
--- NOTE | 2017-03-25 11:20 | Physical Therapy Daily Note ---
PT Daily Note-Current Subjective Pt is sitting in [facility] pre tx and has no complaints of pain and agrees to PT. Pain Numeric Pain Scale: 0-No Pain Location: No Pain Reported Appearance Pt is sitting on toilet with nurse call within reach to conclude tx. Pt request to sit there for awhile. Mental Status Patient Orientation: Normal For Age Transfers Functional [place] Measure 0=Not Assessed/NA 4=Minimal Assistance 1=Total Assistance 5=Supervision or Setup 2=Maximal Assistance 6=Modified [place] 3=Moderate Assistance 7=Complete IndependenceIRFPAI Quality Coding Scale 6 Independent with activity with or without an assistive device 5 Patient requires set up or clean up by helper. Patient completes activity by themselves 4 Supervision or touching assist (CGA). Lester provide cues , steadying assist 3 The helper provides less than half the effort to complete the activity 2 The helper provides more than half the effort to complete the activity 1 Dependent. The helper does all the effort to complete an activity 7 Patient refused to complete or attempt activity 9 The patient did not perform the activity before the current illness or injury 88 Not attempted due to Medical conditions or safety concerns Transfers (B, C, W/C) (FIM): 2 Scootin Rollin Supine to/from Sit: 2 Sit to/from Stand: 4 Bed to/from Chair: 4 Pt required min A for bed to chair transfer and sit and stand transfer. Mod A required for rolling and max A needed for supine to sit. Weight Bearing Right Lower Extremity: Right Full Weight Bearing Left Lower Extremity: Left Full Weight Bearing Gait Training Does the Patient Walk?: Yes Gait (FIM): 2 Distance: 30 feet x2, 20 feet x1 Gait Level of Assist: 2 Gait Persons Needed: 2 Gait Assistive Device: Walker Wale Pt wore knee immobilizer and AFO on the LLE. Sock on the LLE was used to assist with food sliding for swing phase. Pt requires manual assistance for swing phase of the LLE when fatigued. Once fatigued, pt encouraged for a sitting break. Wheelchair Training Does the Pt Use a Wheelchair?: Yes Wheelchair (FIM): 2 Distance: 100 feet Wheelchair Level of Assist: 5 Type of Wheelchair: Manual Exercises Supine Ex: Bridging (20 x2 BLE ), Rolling (3 x1 to both sides) Chair to chair transfer: 4 x1 to R side and 4 x1 to L side Treatments Pt performed WCH mobility, bed mobility, transfer training, and gait training. Assessment Current Status: Good Progress Pt requires max A for gait training but is able to walk 30 feet until becoming fatigued. Pt is improving bed to chair transfer and is smoother when transferring to the R, which is his stronger side. PT Short Term Goals Short Term Goals Time Frame: Mar 22, 2017 Gait (FIM): 2 Distance (FIM): 1=up to 49 ft Gait Assistive Device: Walker Wale Wheelchair (FIM): 6 (met) Wheelchair distance (FIM): 3=150 ft Wheelchair Distance: 10 feet PT Chcf Goals Hospital Clerk Goals PT Hospital Clerk Goals Time Frame: Apr 05, 2017 Transfers (B,C,W/C) (FIM): 6 Sit to Lying (QC): 6 Lying-Sitting on Side/Bed(QC): 6 Sit to Stand (QC): 6 Rollin Roll Left to Right (QC): 6 Chair/Par-rf-Htmtq Xfer(QC): 6 Car Transfer (QC): 5 Does the Patient Walk: No and Walking Goal IS indicated Gait (FIM): 5 Gait distance (FIM): 3=150 ft Walk 10 feet (QC): 5 Walk 10ft-Uneven Surface(QC): 5 Walk 50ft with 2 Turns (QC): 5 Walk 150 ft (QC): 5 Gait Level of Assist: 5 Gait Assistive Device: Walker Wale Does the Pt use WC or Scooter?: Yes Wheelchair (FIM): 6 Wheelchair distance (FIM): 3=150 ft Wheel 50 feet with 2 turns (QC: 6 Stairs (FIM): 2 # of Steps: 4 1 Step (curb) (QC): 4 4 Steps (QC): 4 12 Steps (QC): 88 Picking up an Object (QC): 88 PT Plan Problem List Problem List: Activity Tolerance, Functional Strength, Safety, Balance, Gait, Transfer, Bed Mobility, ROM Treatment/Plan Treatment Plan: Continue Plan of Care Treatment Plan: Bed Mobility, Education, Functional Activity Curtis, Functional Strength, Group Therapy, Gait, Safety, Therapeutic Exercise, Transfers Treatment Duration: Apr 05, 2017 Frequency: At least 5 of 7 days/Wk (IRF) Estimated Hrs Per Day: 1.5 hours per day Patient and/or Family Agrees t: Yes Safety Risks/Education Patient Education: Gait Training, Transfer Techniques, Correct Positioning, W/ C Management, Safety Issues Teaching Recipient: Patient Teaching Methods: Demonstration, Discussion Response to Teaching: Reinforcement Needed Time/GCodes Time In: 1000 Time Out: 1100 Total Billed Treatment Time: 60 Total Billed Treatment 1 visit 25 min GT 35 min FA AARTI TARIQ PT Mar 25, 2017 11:20
--- NOTE | 2017-03-25 14:09 | Occupational Ther Daily Note ---
OT Current Status-Daily Note Subjective Pt sitting in w/c in [facility]. Pt agreed to therapy. Mental Status/Objective Functional [place] Measure 0=Not Assessed/NA 4=Minimal Assistance 1=Total Assistance 5=Supervision or Setup 2=Maximal Assistance 6=Modified [place] 3=Moderate Assistance 7=Complete [place] ADL-Treatment Functional [place] Measure 0=Not Assessed/NA 4=Minimal Assistance 1=Total Assistance 5=Supervision or Setup 2=Maximal Assistance 6=Modified [place] 3=Moderate Assistance 7=Complete IndependenceIRFPAI Quality Coding Scale 6 Independent with activity with or without an assistive device 5 Patient requires set up or clean up by helper. Patient completes activity by themselves 4 Supervision or touching assist (CGA). [place] provide cues , steadying assist 3 The helper provides less than half the effort to complete the activity 2 The helper provides more than half the effort to complete the activity 1 Dependent. The helper does all the effort to complete an activity 7 Patient refused to complete or attempt activity 9 The patient did not perform the activity before the current illness or injury 88 Not attempted due to Medical conditions or safety concerns Other Treatment Pt working on maneuvering w/c up/down ramp. Pt was able to control w/c's speed going down ramp though would drift toward R side. Pt struggled going up ramp with strength and directionality. Pt is progressing since last time and 1 break taken during ascension of ramp. Pt then maneuvered to therapy gym. Pt completed dowel paige exercises against gravity. Pt was able to complete 1 exercises though poor scapular movement throughout exercise. Pt then maneuvered w/c to therapy room. Call light/phone in reach. All needs met in room. OT Short Term Goals Short Term Goals Time Frame: Mar 22, 2017 Grooming(FIM): 5 Bathing(FIM): 4 Toileting(FIM): 3 Toilet/Commode Transfer(FIM): 4 Additional Short Term Goals: 2-Verbalize Understanding, 3-ImproveStrength/Curtis 1=Demonstrate adherence to instructed precautions during ADL tasks. 2=Patient will verbalize/demonstrate understanding of assistive devices/ modifications for ADL. 3=Patient will improve strength/tolerance for activity to enable patient to perform ADL's. OT Sterile Proc Tech Goals Sterile Proc Tech Goals Time Frame: Apr 05, 2017 Eating (FIM): 6 Eating (QC): 6 Groomin Oral Hygiene (QC): 6 Bathing(FIM): 5 Shower/Bathe Self (QC): 5 Upper Body Dressing(FIM): 6 Upper Body Dressing (QC): 6 Lower Body Dressing(FIM): 5 Lower Body Dressing (QC): 5 On/Off Footwear (QC): 5 Toileting(FIM): 5 Toileting Hygiene (QC): 5 Toilet/Commode Transfer(FIM): 5 Toilet/Commode Transfer (QC): 5 Shower Transfer(FIM): 5 Additional Goals: 2-Verbalize Understanding, 3-ImproveStrength/Curtis 1=Demonstrate adherence to instructed precautions during ADL tasks. 2=Patient will verbalize/demonstrate understanding of assistive devices/ modifications for ADL. 3=Patient will improve strength/tolerance for activity to enable patient to perform ADL's. OT Education/Plan Problem List/Assessment Pt would benefit from skilled OT to increase his independence in basic self care and to decrease caregiver burden. Discharge Recommendations Plan/Recommendations: Continue POC Treatment Plan/Plan of Care Patient would benefit from OT for education, treatment and training to promote independence in ADL's, mobility, safety and/or upper extremity function for ADL' s. Plan of Care: ADL Retraining, Functional Mobility, Group Exercise/Act as Ind ( educaiton, exercise, activity tolerance, functional acitivites, socialization), UE Funct Exercise/Act, UE Neuromus Re-Ed/Coord, W/C Management Training Treatment Duration: Apr 05, 2017 Frequency: At least 5 of 7 days/Wk (IRF) Estimated Hrs Per Day: 1.5 hours per day Agreement: Yes Rehab Potential: Good Time/GCodes Start Time: 11:00 Stop Time: 11:30 Total Time Billed (hr/min): 30 Billed Treatment Time 1 visit-NM 1 (15 min) FA 1 (15 min) AARTI STARR Mar 25, 2017 14:09
--- NOTE | 2017-03-25 14:38 | Physical Therapy Daily Note ---
PT Daily Note-Current Subjective Pt is sitting in [facility] pre tx with no complaints of pain and agrees to PT. Pain Numeric Pain Scale: 0-No Pain Location: No Pain Reported Appearance Pt is laying in bed in room post tx with pillow under his LUE with nurse call, phone, and tray within reach. Mental Status Patient Orientation: Normal For Age Transfers Functional [place] Measure 0=Not Assessed/NA 4=Minimal Assistance 1=Total Assistance 5=Supervision or Setup 2=Maximal Assistance 6=Modified [place] 3=Moderate Assistance 7=Complete IndependenceIRFPAI Quality Coding Scale 6 Independent with activity with or without an assistive device 5 Patient requires set up or clean up by helper. Patient completes activity by themselves 4 Supervision or touching assist (CGA). [place] provide cues , steadying assist 3 The helper provides less than half the effort to complete the activity 2 The helper provides more than half the effort to complete the activity 1 Dependent. The helper does all the effort to complete an activity 7 Patient refused to complete or attempt activity 9 The patient did not perform the activity before the current illness or injury 88 Not attempted due to Medical conditions or safety concerns Transfers (B, C, W/C) (FIM): 2 Scootin Supine to/from Sit: 2 Sit to/from Stand: 4 Bed to/from Chair: 4 Max A needed for supine to sit as he required help with position in bed with both trunk and BLE. Pt requires CGA for sit to stand and bed to chair transfer. Weight Bearing Right Lower Extremity: Right Full Weight Bearing Left Lower Extremity: Left Full Weight Bearing Gait Training Does the Patient Walk?: Yes Gait (FIM): 1 Distance: 30 feet x1 Gait Level of Assist: 2 Gait Persons Needed: 1 Gait Assistive Device: Walker Wale Knee immobilizer and AFO on the LLE. Pt requires verbal cues to take smaller steps with the LLE. Wheelchair Training Does the Pt Use a Wheelchair?: Yes Wheelchair (FIM): 2 Distance: 100 feet x1 Wheelchair Level of Assist: 5 Type of Wheelchair: Manual Exercises NuStep Minutes: 7 NuStep Workload: 4 Treatments Pt performed gait training, LE exercise, [facility] mobility, and bed mobility. Assessment Current Status: Good Progress Pt seemed tired at beginning of session. After walking 30 feet, it was decided that pt would benefit from performing NuStep for 7 minutes at 4 workload. Pt decided that he wanted to go to bed post tx. Pt is improving in ambulation distance. PT Short Term Goals Short Term Goals Time Frame: Mar 22, 2017 Gait (FIM): 2 Distance (FIM): 1=up to 49 ft Gait Assistive Device: Walker Wale Wheelchair (FIM): 6 (met) Wheelchair distance (FIM): 3=150 ft Wheelchair Distance: 100 feet PT Branch Mechanic Goals Branch Mechanic Goals PT Branch Mechanic Goals Time Frame: Apr 05, 2017 Transfers (B,C,W/C) (FIM): 6 Sit to Lying (QC): 6 Lying-Sitting on Side/Bed(QC): 6 Sit to Stand (QC): 6 Rollin Roll Left to Right (QC): 6 Chair/[id number] Xfer(QC): 6 Car Transfer (QC): 5 Does the Patient Walk: No and Walking Goal IS indicated Gait (FIM): 5 Gait distance (FIM): 3=150 ft Walk 10 feet (QC): 5 Walk 10ft-Uneven Surface(QC): 5 Walk 50ft with 2 Turns (QC): 5 Walk 150 ft (QC): 5 Gait Level of Assist: 5 Gait Assistive Device: Walker Wale Does the Pt use WC or Scooter?: Yes Wheelchair (FIM): 6 Wheelchair distance (FIM): 3=150 ft Wheel 50 feet with 2 turns (QC: 6 Stairs (FIM): 2 # of Steps: 4 1 Step (curb) (QC): 4 4 Steps (QC): 4 12 Steps (QC): 88 Picking up an Object (QC): 88 PT Plan Problem List Problem List: Activity Tolerance, Functional Strength, Safety, Balance, Gait, Transfer, Bed Mobility, ROM Treatment/Plan Treatment Plan: Continue Plan of Care Treatment Plan: Bed Mobility, Education, Functional Activity Curtis, Functional Strength, Group Therapy, Gait, Safety, Therapeutic Exercise, Transfers Treatment Duration: Apr 05, 2017 Frequency: At least 5 of 7 days/Wk (IRF) Estimated Hrs Per Day: 1.5 hours per day Patient and/or Family Agrees t: Yes Safety Risks/Education Patient Education: Gait Training, Transfer Techniques, Correct Positioning, W/ C Management, Safety Issues Teaching Recipient: Patient Teaching Methods: Demonstration, Discussion Response to Teaching: Reinforcement Needed Time/GCodes Time In: 1415 Time Out: 1445 Total Billed Treatment Time: 30 Total Billed Treatment 1 visit 10 min EX 20 min GT AARTI TARIQ PT Mar 25, 2017 14:38
[2017-03-25 18:55] VITALS: BP 127/77
[2017-03-25] MEDS: ATORVASTATIN 40 MG (LIPITOR) TABLET PO SCH (20:07)
[2017-03-26] MEDS: metFORMIN 500 MG (GLUCOPHAGE) TAB PO SCH ×2 (06:02→17:00)
[2017-03-26] MEDS: GLIMEPIRIDE 2 MG (AMARYL) TAB PO SCH (06:02)
[2017-03-26 06:38] VITALS: BP 107/68
--- NOTE | 2017-03-26 07:47 | Occupational Ther Daily Note ---
OT Current Status-Daily Note Subjective Pt alert, sitting in w/c. Pt agreed to therapy. No c/o pain. Pt states that he is wanting a pass for Wednesday. Mental Status/Objective Patient Orientation: Person, Place, Time, Situation Functional [place] Measure 0=Not Assessed/NA 4=Minimal Assistance 1=Total Assistance 5=Supervision or Setup 2=Maximal Assistance 6=Modified [place] 3=Moderate Assistance 7=Complete [place] ADL-Treatment Pt is completing the ADLs that is able to be done in sitting by self. Pt requires assistance in standing to complete ADLs (manipulating pants and shower/ toilet transfers). Pt is able to complete standing with SBA as long as he is holding onto grabbar or stabilizing surface. After therapy, pt sitting in w/c in [facility] area with daughter. All needs met. Functional [place] Measure 0=Not Assessed/NA 4=Minimal Assistance 1=Total Assistance 5=Supervision or Setup 2=Maximal Assistance 6=Modified [place] 3=Moderate Assistance 7=Complete IndependenceIRFPAI Quality Coding Scale 6 Independent with activity with or without an assistive device 5 Patient requires set up or clean up by helper. Patient completes activity by themselves 4 Supervision or touching assist (CGA). [place] provide cues , steadying assist 3 The helper provides less than half the effort to complete the activity 2 The helper provides more than half the effort to complete the activity 1 Dependent. The helper does all the effort to complete an activity 7 Patient refused to complete or attempt activity 9 The patient did not perform the activity before the current illness or injury 88 Not attempted due to Medical conditions or safety concerns Grooming (FIM): 6 (At w/c level sitting in front of sink, pt completes by self. ) Oral Hygiene (QC): 6 Bathing (FIM): 4 (Using shower bench, hand held shower and grabbar pt is able to complete all bathing/drying except buttocks. Pt pulls to stand with grabbar and is able to stand while assist to cleanse buttocks.) Bathing Location: L Arm, R Arm, L Upper Leg, R Upper Leg, L Lower Leg ( including foot), R Lower Leg (including foot), Chest, Abdomen, Perineal Area Shower/Bathe Self (QC): 4 Upper Body (FIM): 6 (Retrieves from closet at w/c level then dons/doffs shirt by self.) Upper Body Dressing (QC): 6 Lower Body Dressing (FIM): 4 (Retreives clothing from closet at w/c level. Pt dons/doffs clothing over legs and feet. Assistance in standing to hike over hips.) Lower Body Dressing (QC): 3 On/Off Footwear (QC): 6 Shower Transfer(FIM): 3 (Mod A to transfer toward L side. CGA transfer toward R side using grabbar.) OT Short Term Goals Short Term Goals Time Frame: Mar 22, 2017 Grooming(FIM): 5 Bathing(FIM): 4 Toileting(FIM): 3 Toilet/Commode Transfer(FIM): 4 Additional Short Term Goals: 2-Verbalize Understanding, 3-ImproveStrength/Curtis 1=Demonstrate adherence to instructed precautions during ADL tasks. 2=Patient will verbalize/demonstrate understanding of assistive devices/ modifications for ADL. 3=Patient will improve strength/tolerance for activity to enable patient to perform ADL's. OT Garageman Goals Senior Care Goals Time Frame: Apr 05, 2017 Eating (FIM): 6 Eating (QC): 6 Groomin Oral Hygiene (QC): 6 Bathing(FIM): 5 Shower/Bathe Self (QC): 5 Upper Body Dressing(FIM): 6 Upper Body Dressing (QC): 6 Lower Body Dressing(FIM): 5 Lower Body Dressing (QC): 5 On/Off Footwear (QC): 5 Toileting(FIM): 5 Toileting Hygiene (QC): 5 Toilet/Commode Transfer(FIM): 5 Toilet/Commode Transfer (QC): 5 Shower Transfer(FIM): 5 Additional Goals: 2-Verbalize Understanding, 3-ImproveStrength/Curtis 1=Demonstrate adherence to instructed precautions during ADL tasks. 2=Patient will verbalize/demonstrate understanding of assistive devices/ modifications for ADL. 3=Patient will improve strength/tolerance for activity to enable patient to perform ADL's. OT Education/Plan Problem List/Assessment Pt would benefit from skilled OT to increase his independence in basic self care and to decrease caregiver burden. Discharge Recommendations Plan/Recommendations: Continue POC Treatment Plan/Plan of Care Patient would benefit from OT for education, treatment and training to promote independence in ADL's, mobility, safety and/or upper extremity function for ADL' s. Plan of Care: ADL Retraining, Functional Mobility, Group Exercise/Act as Ind ( educaiton, exercise, activity tolerance, functional acitivites, socialization), UE Funct Exercise/Act, UE Neuromus Re-Ed/Coord, W/C Management Training Treatment Duration: Apr 05, 2017 Frequency: At least 5 of 7 days/Wk (IRF) Estimated Hrs Per Day: 1.5 hours per day Agreement: Yes Rehab Potential: Good Time/GCodes Start Time: 06:58 Stop Time: 07:00 Total Time Billed (hr/min): 62 Billed Treatment Time 1 visit-ADL 4 (62 min) AARTI STARR Mar 26, 2017 07:47
--- NOTE | 2017-03-26 08:40 | Progress Note (SOAP) ---
Subjective Time Seen by Provider: 08:40 Subjective/Events-last exam CVA. Patient voices no complaints. 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 Hypertension. Hyperlipidemia. Tobacco usage. Abdominal aortic aneurysm. GERD . 03/10/17. 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 Hypertension. Hyperlipidemia. Tobacco usage. Patient working hard and moving left arm today. . 03/11/17. 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 Hypertension. Hyperlipidemia. Tobacco usage. Patient working hard and improving. . 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 Hypertension. Hyperlipidemia Tobacco usage. Patient stomach doing better . 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 nauseous. Hypertension. Hyperlipidemia. Tobacco usage. . 03/16/17. 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 Hypertension. Constipation. Hyperlipidemia. Tobacco usage. . 03/17/17. 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 Hypertension. Constipation. Hyperlipidemia. Patient seems positive. Patient working hard . 03/18/17. 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 Hypertension. Did not have a bowel movement today. Hyperlipidemia. Patient working on walking. . 03/19/17. 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 Hypertension. Hyperlipidemia. Constipation resolved. . 03/22/17. 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 Hypertension. Hyperlipidemia. Patient doing better with left upper extremity and left lower extremity. . 03/23. 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 Hypertension.. patient doing better with upper extremity than lower extremity and left. . 03/24/17. 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 Hypertension. Patient improving with left upper extremity. . 03/25/17. 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 Hypertension. Patient doing better with his left upper extremity. . 03/26/17. 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 Hypertension. Left lower extremity having problems Clinical Quality Measures DVT/VTE Risk/Contraindication: Risk Factor Score Per Nursin RFS Level Per Nursing on Admit: 4+=Very High JAIME ROBERSON DO Mar 26, 2017 08:40
[2017-03-26] MEDS: CLOPIDOGREL 75 MG (PLAVIX) TABLET PO SCH (08:56)
[2017-03-26] MEDS: lisINopril 10 MG (PRINIVIL) TABLET PO SCH (08:56)
--- NOTE | 2017-03-26 10:15 | PM & R (SOAP) Progress Note ---
Subjective Time Seen by Provider: 07:45 Subjective/Events-last exam Patient was seen in his room this AM Patient Mod assist for transfers Objective Exam Last Set of Vital Signs Vital Signs Date Time Temp Pulse Resp B/P (MAP) Pulse Ox O2 Delivery O2 Flow Rate FiO2 03/26/17 06:38 97.6 72 18 107/68 (81) 95 Room Air Capillary Refill : Less Than 3 Seconds I&O Intake and Output 03/26/17 00:00 Intake Total 1600 ml Balance 1600 ml Intake Oral 1600 ml # Voids 6 General: Alert, Oriented X3, Cooperative, No Acute Distress HEENT: Atraumatic, PERRLA, EOMI, Mucous Memb Moist/[place] Neck: Supple, No JVD Lungs: Clear to Auscultation Heart: Regular Rate Abdomen: Normal Bowel Sounds, Soft, No Tenderness Extremities: No Edema Neuro: Other (Left LE flaccid with trace return LUE) Psych/Mental Status: Mental Status NL Results Lab Laboratory Tests 03/23/17 16:25: Glucometer 119H 03/24/17 04:50: Glucometer 128H 03/24/17 16:28: Glucometer 134H 03/25/17 05:07: Glucometer 110 03/25/17 15:58: Glucometer 99 03/26/17 05:30: Glucometer 105 Assessment/Plan Assessment Rt MCA CVA with Left HP HTN controlled DM2 controlled Tobacco abuse declines Patch 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 GERD without espohagitis AAA without rupture Mild nausea-Zofran ordered prn-improved Constipation meds to be adjusted as needed-improved had BM Plan Continue PT/OT ST has assessed and signed off Decreased Accucheks as per above-stable Patient has 2 sons and a daughter in this area to help out upon discharge Zofran for nausea-improved Current meds reviewed Accucheks noted Appreciate ABD Xray results Adjust meds for constipation as needed TLOA as per above for this -see orders Team Conference held 03-24-17 See report for full functional update and POC and NNEKA CARDENAS MD Mar 26, 2017 10:15
--- NOTE | 2017-03-26 10:20 | Physical Therapy Daily Note ---
PT Daily Note-Current Subjective Pt is sitting in [facility] in room pre tx and has no complaints of pain and agrees to PT. Pain Numeric Pain Scale: 0-No Pain Location: No Pain Reported Appearance Pt is sitting in [facility] post tx with all needs met at this time. Nurse call, phone , and tray are within reach. Mental Status Patient Orientation: Normal For Age Transfers Functional [place] Measure 0=Not Assessed/NA 4=Minimal Assistance 1=Total Assistance 5=Supervision or Setup 2=Maximal Assistance 6=Modified [place] 3=Moderate Assistance 7=Complete IndependenceIRFPAI Quality Coding Scale 6 Independent with activity with or without an assistive device 5 Patient requires set up or clean up by helper. Patient completes activity by themselves 4 Supervision or touching assist (CGA). [place] provide cues , steadying assist 3 The helper provides less than half the effort to complete the activity 2 The helper provides more than half the effort to complete the activity 1 Dependent. The helper does all the effort to complete an activity 7 Patient refused to complete or attempt activity 9 The patient did not perform the activity before the current illness or injury 88 Not attempted due to Medical conditions or safety concerns Transfers (B, C, W/C) (FIM): 4 Supine to/from Sit: 4 Bed to/from Chair: 4 CGA needed for sit to stand and chair to chair transfer to the R. Min A necessary for chair to chair transfer to the L due to L hemiplegia. Weight Bearing Right Lower Extremity: Right Full Weight Bearing Left Lower Extremity: Left Full Weight Bearing Gait Training Does the Patient Walk?: Yes Gait (FIM): 2 Distance: 100 feet x1 Gait Level of Assist: 2 Gait Persons Needed: 2 Gait Assistive Device: Walker Wale Pt requires max x2 for safety during ambulation. Pt wears AFO and knee immobilizer on the LLE. Pt requires verbal cues for step length with the LLE. Wheelchair Training Does the Pt Use a Wheelchair?: Yes Wheelchair (FIM): 2 Distance: 100 feet x1 Wheelchair Level of Assist: 5 Type of Wheelchair: Manual Exercises Chair to chair transfers: To the R: 4 x1, To the L: 8 x1 NuStep Minutes: 8 NuStep Workload: 5 Treatments Pt performed gait training, transfer training, LE exercise, and [facility] mobility. Assessment Current Status: Good Progress Pt was able to ambulate 100 feet with max A x2. With use of hemiwalker, pt is able to transfer to the L during chair to chair transfer. Pt tolerated 8 min on NuStep at 5 workload with use of abduction stop and hand guard on the LLE and LUE, respectively. PT Short Term Goals Short Term Goals Time Frame: Mar 22, 2017 Gait (FIM): 2 Distance (FIM): 1=up to 49 ft Gait Assistive Device: Walker Wale Wheelchair (FIM): 6 (met) Wheelchair distance (FIM): 3=150 ft Wheelchair Distance: 100 feet x1 PT Alf Goals Flight Coordinator Goals PT Alf Goals Time Frame: Apr 05, 2017 Transfers (B,C,W/C) (FIM): 6 Sit to Lying (QC): 6 Lying-Sitting on Side/Bed(QC): 6 Sit to Stand (QC): 6 Rollin Roll Left to Right (QC): 6 Chair/Cpk-lr-Lmwoj Xfer(QC): 6 Car Transfer (QC): 5 Does the Patient Walk: No and Walking Goal IS indicated Gait (FIM): 5 Gait distance (FIM): 3=150 ft Walk 10 feet (QC): 5 Walk 10ft-Uneven Surface(QC): 5 Walk 50ft with 2 Turns (QC): 5 Walk 150 ft (QC): 5 Gait Level of Assist: 5 Gait Assistive Device: Walker Wale Does the Pt use WC or Scooter?: Yes Wheelchair (FIM): 6 Wheelchair distance (FIM): 3=150 ft Wheel 50 feet with 2 turns (QC: 6 Stairs (FIM): 2 # of Steps: 4 1 Step (curb) (QC): 4 4 Steps (QC): 4 12 Steps (QC): 88 Picking up an Object (QC): 88 PT Plan Problem List Problem List: Activity Tolerance, Functional Strength, Safety, Balance, Gait, Transfer, Bed Mobility, ROM Treatment/Plan Treatment Plan: Continue Plan of Care Treatment Plan: Bed Mobility, Education, Functional Activity Curtis, Functional Strength, Group Therapy, Gait, Safety, Therapeutic Exercise, Transfers Treatment Duration: Apr 05, 2017 Frequency: At least 5 of 7 days/Wk (IRF) Estimated Hrs Per Day: 1.5 hours per day Patient and/or Family Agrees t: Yes Safety Risks/Education Patient Education: Gait Training, Transfer Techniques, Correct Positioning, W/ C Management, Safety Issues Teaching Recipient: Patient Teaching Methods: Demonstration, Discussion Response to Teaching: Reinforcement Needed Pt has a weekend day pass and will be going to a road show. Pt educated on looking for shower handles, suction cup handles, shower chairs for his home. Time/GCodes Time In: 1005 Time Out: 1105 Total Billed Treatment Time: 60 Total Billed Treatment 1 visit 22 min GT 30 min FA 8 min EX AARTI TARIQ PT Mar 26, 2017 10:20
--- NOTE | 2017-03-26 14:25 | Physical Therapy Daily Note ---
PT Daily Note-Current Subjective Pt is sitting in [facility] in visiting area pre tx and agrees to walk to his room. Pain Numeric Pain Scale: 0-No Pain Location: No Pain Reported Appearance Pt is sitting in [facility] post tx with all needs met. Nurse call, phone, and tray are within reach. Mental Status Patient Orientation: Normal For Age Transfers Functional [place] Measure 0=Not Assessed/NA 4=Minimal Assistance 1=Total Assistance 5=Supervision or Setup 2=Maximal Assistance 6=Modified [place] 3=Moderate Assistance 7=Complete IndependenceIRFPAI Quality Coding Scale 6 Independent with activity with or without an assistive device 5 Patient requires set up or clean up by helper. Patient completes activity by themselves 4 Supervision or touching assist (CGA). [place] provide cues , steadying assist 3 The helper provides less than half the effort to complete the activity 2 The helper provides more than half the effort to complete the activity 1 Dependent. The helper does all the effort to complete an activity 7 Patient refused to complete or attempt activity 9 The patient did not perform the activity before the current illness or injury 88 Not attempted due to Medical conditions or safety concerns Transfers (B, C, W/C) (FIM): 4 Sit to/from Stand: 4 CGA needed for sit to stand. Weight Bearing Right Lower Extremity: Right Full Weight Bearing Left Lower Extremity: Left Full Weight Bearing Gait Training Does the Patient Walk?: Yes Gait (FIM): 1 Distance: 30 feet Gait Level of Assist: 2 Gait Persons Needed: 2 Gait Assistive Device: Walker Wale Knee immobilizer, AFO used on the LLE. Manual cues necessary to prevent adduction during swing phase of the LLE. Wheelchair Training Does the Pt Use a Wheelchair?: Yes Treatments Pt performed functional activity and gait training. Assessment Current Status: Good Progress Pt tolerated walking 30 feet with max A. Pt walking distance and activity tolerance is improving. PT Short Term Goals Short Term Goals Time Frame: Mar 22, 2017 Gait (FIM): 2 Distance (FIM): 1=up to 49 ft Gait Assistive Device: Walker Wale Wheelchair (FIM): 6 (met) Wheelchair distance (FIM): 3=150 ft Wheelchair Distance: 100 feet x1 PT Mcc Goals Inspection Engineer Goals PT Inspection Engineer Goals Time Frame: Apr 05, 2017 Transfers (B,C,W/C) (FIM): 6 Sit to Lying (QC): 6 Lying-Sitting on Side/Bed(QC): 6 Sit to Stand (QC): 6 Rollin Roll Left to Right (QC): 6 Chair/Ich-ql-Azhsk Xfer(QC): 6 Car Transfer (QC): 5 Does the Patient Walk: No and Walking Goal IS indicated Gait (FIM): 5 Gait distance (FIM): 3=150 ft Walk 10 feet (QC): 5 Walk 10ft-Uneven Surface(QC): 5 Walk 50ft with 2 Turns (QC): 5 Walk 150 ft (QC): 5 Gait Level of Assist: 5 Gait Assistive Device: Walker Wale Does the Pt use WC or Scooter?: Yes Wheelchair (FIM): 6 Wheelchair distance (FIM): 3=150 ft Wheel 50 feet with 2 turns (QC: 6 Stairs (FIM): 2 # of Steps: 4 1 Step (curb) (QC): 4 4 Steps (QC): 4 12 Steps (QC): 88 Picking up an Object (QC): 88 PT Plan Problem List Problem List: Activity Tolerance, Functional Strength, Safety, Balance, Gait, Transfer, Bed Mobility, ROM Treatment/Plan Treatment Plan: Continue Plan of Care Treatment Plan: Bed Mobility, Education, Functional Activity Curtis, Functional Strength, Group Therapy, Gait, Safety, Therapeutic Exercise, Transfers Treatment Duration: Apr 05, 2017 Frequency: At least 5 of 7 days/Wk (IRF) Estimated Hrs Per Day: 1.5 hours per day Patient and/or Family Agrees t: Yes Safety Risks/Education Patient Education: Gait Training, Transfer Techniques, Safety Issues Teaching Methods: Discussion Response to Teaching: Reinforcement Needed Time/GCodes Time In: 1405 Time Out: 1415 Total Billed Treatment Time: 10 Total Billed Treatment 1 visit 10 min GT EDMUNDO HENSON PT Mar 26, 2017 14:25
--- NOTE | 2017-03-26 14:35 | Therapy Group Daily Note ---
Therapy Daily Group Note Exercises Fine Motor, UE Exercise Other/Notes Pt maneuvered w/c to OT/PT group in [facility]. Group consisted of introductions (name, place born, childhood game), socialization, peer interaction, dynamic sitting, UE seated exercises and problem solving. Pt introduced self appropriately and was able to give details about childhood memories. Pt was able to lean forward and sideways in sitting to complete UE seated exercises that worked on UE strength and fine motor manipulation. Pt used one UE modified techniques when reaching forward while placing item in designated area. Pt performed problem solving skills throughout activities. Pt actively listened to peers and contributed to conversations. Inspiring word for the day was going home. After therapy, pt left in care of PT. All needs met. Start Time: 13:00 Stop Time: 14:05 Total Billed Treatment Time: 65 Total Billed Treatment 1-GRP AARTI STARR Mar 26, 2017 14:35
[2017-03-26 18:45] VITALS: BP 118/75
[2017-03-26] MEDS: ATORVASTATIN 40 MG (LIPITOR) TABLET PO SCH (20:27)
[2017-03-27 05:11] VITALS: BP 110/73
[2017-03-27] MEDS: GLIMEPIRIDE 2 MG (AMARYL) TAB PO SCH (06:07)
[2017-03-27] MEDS: ACETAMINOPHEN 325 MG TABLET/CAPLET (TYLENOL) PO PRN (06:07)
[2017-03-27] MEDS: metFORMIN 500 MG (GLUCOPHAGE) TAB PO SCH ×2 (06:08→16:12)
--- NOTE | 2017-03-27 08:30 | Physical Therapy Daily Note ---
PT Daily Note-Current Subjective Pt sitting in [facility] in [facility] area just finishing breakfast upon arrival. Pt agrees to PT. Pain Location: No Pain Reported Mental Status Patient Orientation: Person, Place, Time, Situation Attachments: Other-See Comments (L AFO & knee immobilizer) Transfers Functional [place] Measure 0=Not Assessed/NA 4=Minimal Assistance 1=Total Assistance 5=Supervision or Setup 2=Maximal Assistance 6=Modified [place] 3=Moderate Assistance 7=Complete IndependenceIRFPAI Quality Coding Scale 6 Independent with activity with or without an assistive device 5 Patient requires set up or clean up by helper. Patient completes activity by themselves 4 Supervision or touching assist (CGA). [place] provide cues , steadying assist 3 The helper provides less than half the effort to complete the activity 2 The helper provides more than half the effort to complete the activity 1 Dependent. The helper does all the effort to complete an activity 7 Patient refused to complete or attempt activity 9 The patient did not perform the activity before the current illness or injury 88 Not attempted due to Medical conditions or safety concerns Scootin Sit to/from Stand: 4 Sit to Stand (QC): 4 Weight Bearing Right Lower Extremity: Right Full Weight Bearing Left Lower Extremity: Left Full Weight Bearing Gait Training Does the Patient Walk?: Yes Distance (FIM): 3=150 ft Distance: 150' Walk 10 feet (QC): 3 Walk 50 ft with 2 Turns(QC): 3 Walk 150 ft (QC): 3 Gait Level of Assist: 3 Gait Persons Needed: 1 Gait Assistive Device: Walker Wale Pt walks at Mod A with Intermittent Assistance to Advance LLE especially as pt fatigues. Pt is able to lift and advance LLE more independently than previous days. Wheelchair Training Does the Pt Use a Wheelchair?: Yes Wheelchair Distance: 3=150 ft Distance: 150' Wheelchair Level of Assist: 5 Wheel 50 ft with 2 turns (QC): 5 Wheel 150 ft (QC): 5 Type of Wheelchair: Manual Exercises NuStep Minutes: 10 NuStep Workload: 6 Treatments Pt propels [facility] in hallway to [facility]. Pt transfers from [facility] to [facility] at CGA-Min A. Pt uses NuStep for 10m at Workload 6 then takes short rest to don L AFO & Knee Immobilizer. Pt ambulates with staff using Wale Walker at Mod A and Intermittent A to advance LLE has pt fatigues. Pt takes a couple of rest breaks in [facility] during ambulation. Pt returns to [facility] to rest at end of ambulation and wants to stay in [facility] at end of tx. with all needs met. Assessment Current Status: Good Progress Pt is very self motivated and continues to push self to walk farther and more independently than previous tx. PT Short Term Goals Short Term Goals Time Frame: Mar 22, 2017 Gait (FIM): 2 Distance (FIM): 1=up to 49 ft Gait Assistive Device: Walker Wale Wheelchair (FIM): 6 (met) Wheelchair distance (FIM): 3=150 ft Wheelchair Distance: 100 feet x1 PT Longterm Goals Longterm Goals PT Longterm Goals Time Frame: Apr 05, 2017 Transfers (B,C,W/C) (FIM): 6 Sit to Lying (QC): 6 Lying-Sitting on Side/Bed(QC): 6 Sit to Stand (QC): 6 Rollin Roll Left to Right (QC): 6 Chair/Edi-zl-Ehojn Xfer(QC): 6 Car Transfer (QC): 5 Does the Patient Walk: No and Walking Goal IS indicated Gait (FIM): 5 Gait distance (FIM): 3=150 ft Walk 10 feet (QC): 5 Walk 10ft-Uneven Surface(QC): 5 Walk 50ft with 2 Turns (QC): 5 Walk 150 ft (QC): 5 Gait Level of Assist: 5 Gait Assistive Device: Walker Wale Does the Pt use WC or Scooter?: Yes Wheelchair (FIM): 6 Wheelchair distance (FIM): 3=150 ft Wheel 50 feet with 2 turns (QC: 6 Stairs (FIM): 2 # of Steps: 4 1 Step (curb) (QC): 4 4 Steps (QC): 4 12 Steps (QC): 88 Picking up an Object (QC): 88 PT Plan Problem List Problem List: Activity Tolerance, Functional Strength, Safety, Balance, Gait, Transfer Treatment/Plan Treatment Plan: Continue Plan of Care Treatment Plan: Bed Mobility, Education, Functional Activity Curtis, Functional Strength, Group Therapy, Gait, Safety, Therapeutic Exercise, Transfers Treatment Duration: Apr 05, 2017 Frequency: At least 5 of 7 days/Wk (IRF) Estimated Hrs Per Day: 1.5 hours per day Patient and/or Family Agrees t: Yes Safety Risks/Education Patient Education: Gait Training, Transfer Techniques, Correct Positioning, Safety Issues Teaching Recipient: Patient Teaching Methods: Discussion Response to Teaching: Verbalize Understanding Time/GCodes Time In: 700 Time Out: 735 Total Billed Treatment Time: 35 Total Billed Treatment 1, EX (15m) & GT (20m) LIT TANNER LOGISTICS PLANNER Mar 27, 2017 08:30
[2017-03-27] MEDS: CLOPIDOGREL 75 MG (PLAVIX) TABLET PO SCH (08:35)
[2017-03-27] MEDS: lisINopril 10 MG (PRINIVIL) TABLET PO SCH (08:36)
[2017-03-27 18:00] VITALS: BP 119/76
[2017-03-27] MEDS: ATORVASTATIN 40 MG (LIPITOR) TABLET PO SCH (20:35)
[2017-03-28 06:00] VITALS: BP 117/71
[2017-03-28] MEDS: GLIMEPIRIDE 2 MG (AMARYL) TAB PO SCH (06:09)
[2017-03-28] MEDS: metFORMIN 500 MG (GLUCOPHAGE) TAB PO SCH ×2 (06:09→17:09)
[2017-03-28] MEDS: lisINopril 10 MG (PRINIVIL) TABLET PO SCH (09:48)
[2017-03-28] MEDS: CLOPIDOGREL 75 MG (PLAVIX) TABLET PO SCH (09:48)
[2017-03-28] MEDS: ACETAMINOPHEN 325 MG TABLET/CAPLET (TYLENOL) PO PRN (09:50)
[2017-03-28 18:00] VITALS: BP 126/70
[2017-03-28] MEDS: ATORVASTATIN 40 MG (LIPITOR) TABLET PO SCH (20:11)
[2017-03-29 06:00] VITALS: BP 132/81
[2017-03-29] MEDS: metFORMIN 500 MG (GLUCOPHAGE) TAB PO SCH ×2 (06:24→16:56)
[2017-03-29] MEDS: GLIMEPIRIDE 2 MG (AMARYL) TAB PO SCH (06:24)
--- NOTE | 2017-03-29 07:44 | Occupational Ther Daily Note ---
OT Current Status-Daily Note Subjective Pt alert, sitting in w/c. Pt agreed to therapy. No c/o pain. Mental Status/Objective Patient Orientation: Person, Place, Time, Situation Functional [place] Measure 0=Not Assessed/NA 4=Minimal Assistance 1=Total Assistance 5=Supervision or Setup 2=Maximal Assistance 6=Modified [place] 3=Moderate Assistance 7=Complete [place] ADL-Treatment Pt agreed to shower. Discussed AE for home use after discharge, w/c and BSC. After therapy, pt sitting in w/c with call light/phone in reach. All needs met in room. Functional [place] Measure 0=Not Assessed/NA 4=Minimal Assistance 1=Total Assistance 5=Supervision or Setup 2=Maximal Assistance 6=Modified [place] 3=Moderate Assistance 7=Complete IndependenceIRFPAI Quality Coding Scale 6 Independent with activity with or without an assistive device 5 Patient requires set up or clean up by helper. Patient completes activity by themselves 4 Supervision or touching assist (CGA). [place] provide cues , steadying assist 3 The helper provides less than half the effort to complete the activity 2 The helper provides more than half the effort to complete the activity 1 Dependent. The helper does all the effort to complete an activity 7 Patient refused to complete or attempt activity 9 The patient did not perform the activity before the current illness or injury 88 Not attempted due to Medical conditions or safety concerns Grooming (FIM): 6 (At w/c level, pt able to complete by self.) Oral Hygiene (QC): 6 Bathing (FIM): 4 (Using shower bench, hand held shower, long handle sponge and grabbars pt is able to complete most of bathing sitting. Pt pulls to stand with grabbar and assist to cleanse buttocks due to decreased balance without support.) Bathing Location: L Arm, R Arm, L Upper Leg, R Upper Leg, L Lower Leg ( including foot), R Lower Leg (including foot), Chest, Abdomen, Perineal Area Shower/Bathe Self (QC): 3 Upper Body (FIM): 6 (At w/c level, pt retrieves clothing then is able to don/ doff by self.) Upper Body Dressing (QC): 6 Lower Body Dressing (FIM): 4 (Retrieves clothing at w/c level. Pt is able to don/doff clothing over feet sitting. Assist to hike pants/underwear over hips in standing. Assist to don L shoe. Pt able to don L/R socks and R shoe.) Lower Body Dressing (QC): 3 On/Off Footwear (QC): 3 Shower Transfer(FIM): 5 (Using shower bench, grabbar and w/c pt is mod A to transfer toward L into shower and CGA for transfer toward R.) OT Short Term Goals Short Term Goals Time Frame: Mar 22, 2017 Grooming(FIM): 5 Bathing(FIM): 4 Toileting(FIM): 3 Toilet/Commode Transfer(FIM): 4 Additional Short Term Goals: 2-Verbalize Understanding, 3-ImproveStrength/Curtis 1=Demonstrate adherence to instructed precautions during ADL tasks. 2=Patient will verbalize/demonstrate understanding of assistive devices/ modifications for ADL. 3=Patient will improve strength/tolerance for activity to enable patient to perform ADL's. OT Penitentiary Goals Penitentiary Goals Time Frame: Apr 05, 2017 Eating (FIM): 6 Eating (QC): 6 Groomin Oral Hygiene (QC): 6 Bathing(FIM): 5 Shower/Bathe Self (QC): 5 Upper Body Dressing(FIM): 6 Upper Body Dressing (QC): 6 Lower Body Dressing(FIM): 5 Lower Body Dressing (QC): 5 On/Off Footwear (QC): 5 Toileting(FIM): 5 Toileting Hygiene (QC): 5 Toilet/Commode Transfer(FIM): 5 Toilet/Commode Transfer (QC): 5 Shower Transfer(FIM): 5 Additional Goals: 2-Verbalize Understanding, 3-ImproveStrength/Curtis 1=Demonstrate adherence to instructed precautions during ADL tasks. 2=Patient will verbalize/demonstrate understanding of assistive devices/ modifications for ADL. 3=Patient will improve strength/tolerance for activity to enable patient to perform ADL's. OT Education/Plan Problem List/Assessment Pt would benefit from skilled OT to increase his independence in basic self care and to decrease caregiver burden. Discharge Recommendations Plan/Recommendations: Continue POC Treatment Plan/Plan of Care Patient would benefit from OT for education, treatment and training to promote independence in ADL's, mobility, safety and/or upper extremity function for ADL' s. Plan of Care: ADL Retraining, Functional Mobility, Group Exercise/Act as Ind ( educaiton, exercise, activity tolerance, functional acitivites, socialization), UE Funct Exercise/Act, UE Neuromus Re-Ed/Coord, W/C Management Training Treatment Duration: Apr 05, 2017 Frequency: At least 5 of 7 days/Wk (IRF) Estimated Hrs Per Day: 1.5 hours per day Agreement: Yes Rehab Potential: Good Time/GCodes Start Time: 07:00 Stop Time: 08:00 Total Time Billed (hr/min): 60 Billed Treatment Time 1 visit-ADL 3 (50 min) FA 1 (10 min) AARTI STARR Mar 29, 2017 07:44
--- NOTE | 2017-03-29 08:46 | Physical Therapy Daily Note ---
PT Daily Note-Current Subjective Pt is sitting in [facility] in room pre tx and agrees to PT. Pt has no complaints of pain. Pain Numeric Pain Scale: 0-No Pain Location: No Pain Reported Appearance Pt is sitting in [facility] in room post tx with nurse call within reach and all needs met at this time. Mental Status Patient Orientation: Normal For Age Transfers Functional [place] Measure 0=Not Assessed/NA 4=Minimal Assistance 1=Total Assistance 5=Supervision or Setup 2=Maximal Assistance 6=Modified [place] 3=Moderate Assistance 7=Complete IndependenceIRFPAI Quality Coding Scale 6 Independent with activity with or without an assistive device 5 Patient requires set up or clean up by helper. Patient completes activity by themselves 4 Supervision or touching assist (CGA). [place] provide cues , steadying assist 3 The helper provides less than half the effort to complete the activity 2 The helper provides more than half the effort to complete the activity 1 Dependent. The helper does all the effort to complete an activity 7 Patient refused to complete or attempt activity 9 The patient did not perform the activity before the current illness or injury 88 Not attempted due to Medical conditions or safety concerns Transfers (B, C, W/C) (FIM): 4 Scootin Rollin Supine to/from Sit: 4 Sit to/from Stand: 4 Bed to/from Chair: 4 SBA needed for rolling and scooting while other bed mobility and transfers require CGA to min A. Verbal cues for safety and hand placement. Weight Bearing Right Lower Extremity: Right Full Weight Bearing Left Lower Extremity: Left Full Weight Bearing Gait Training Does the Patient Walk?: Yes Gait (FIM): 2 Distance: 50 feet x2 Gait Level of Assist: 3 Gait Persons Needed: 1 Gait Assistive Device: Walker Wale Knee immobilizer and AFO on the LLE. Manual and verbal cues for weight shift required for safety during ambulation. Wheelchair Training Does the Pt Use a Wheelchair?: Yes Exercises Supine Ex: Bridging (10 x2), Hip abd/add (10 x2 BLE) Chair to chair transfers: 4 x1 to the L, 4 x1 to the R Treatments Pt performed gait training, functional mobility, bed mobility, transfer training. Assessment Current Status: Fair Progress Pt required less assistance during gait training compared to last week and continues to walk at least 50 feet. Pt functional mobility and transfers are becoming more independent. PT Short Term Goals Short Term Goals Time Frame: Mar 22, 2017 Gait (FIM): 2 Distance (FIM): 1=up to 49 ft Gait Assistive Device: Walker Wale Wheelchair (FIM): 6 (met) Wheelchair distance (FIM): 3=150 ft Wheelchair Distance: 150' PT Vacuum Bottle Assembler Goals Care Home Goals PT Vacuum Bottle Assembler Goals Time Frame: Apr 05, 2017 Transfers (B,C,W/C) (FIM): 6 Sit to Lying (QC): 6 Lying-Sitting on Side/Bed(QC): 6 Sit to Stand (QC): 6 Rollin Roll Left to Right (QC): 6 Chair/Ler-gl-Jtwmx Xfer(QC): 6 Car Transfer (QC): 5 Does the Patient Walk: No and Walking Goal IS indicated Gait (FIM): 5 Gait distance (FIM): 3=150 ft Walk 10 feet (QC): 5 Walk 10ft-Uneven Surface(QC): 5 Walk 50ft with 2 Turns (QC): 5 Walk 150 ft (QC): 5 Gait Level of Assist: 5 Gait Assistive Device: Walker Wale Does the Pt use WC or Scooter?: Yes Wheelchair (FIM): 6 Wheelchair distance (FIM): 3=150 ft Wheel 50 feet with 2 turns (QC: 6 Stairs (FIM): 2 # of Steps: 4 1 Step (curb) (QC): 4 4 Steps (QC): 4 12 Steps (QC): 88 Picking up an Object (QC): 88 PT Plan Problem List Problem List: Activity Tolerance, Functional Strength, Safety, Balance, Gait, Bed Mobility, ROM Treatment/Plan Treatment Plan: Continue Plan of Care Treatment Plan: Bed Mobility, Education, Functional Activity Curtis, Functional Strength, Group Therapy, Gait, Safety, Therapeutic Exercise, Transfers Treatment Duration: Apr 05, 2017 Frequency: At least 5 of 7 days/Wk (IRF) Estimated Hrs Per Day: 1.5 hours per day Patient and/or Family Agrees t: Yes Safety Risks/Education Patient Education: Gait Training, Transfer Techniques, Correct Positioning, Safety Issues Teaching Recipient: Patient Teaching Methods: Demonstration, Discussion Response to Teaching: Reinforcement Needed Time/GCodes Time In: 800 Time Out: 845 Total Billed Treatment Time: 45 Total Billed Treatment 1 visit 15 min GT 30 min MARJ LARSEN PT Mar 29, 2017 08:46
--- NOTE | 2017-03-29 08:58 | Progress Note (SOAP) ---
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 Diabetes. Patient voicing no complaints Objective Exam Vital Signs Date Time Temp Pulse Resp B/P (MAP) Pulse Ox O2 Delivery O2 Flow Rate FiO2 03/29/17 06:00 97.3 80 16 132/81 (98) 99 Room Air 03/28/17 21:00 Room Air 03/28/17 18:00 96.1 79 18 126/70 (88) 96 Room Air 03/28/17 09:00 Room Air I & O 03/29/17 07:00 Intake Total 1300 ml Balance 1300 ml Capillary Refill : Less Than 3 Seconds General Appearance: No Apparent Distress, WD/WN HEENT: Normal ENT Inspection Neck: Full Range of Motion, Normal Inspection Respiratory: Chest Non Tender, Lungs Clear, Normal Breath Sounds, No Accessory Muscle Use, No Respiratory Distress Cardiovascular: Regular Rate, Rhythm, No Murmur Results Lab Laboratory Tests 03/28/17 16:41: Glucometer 115H 03/29/17 06:06: Glucometer 141H Assessment/Plan Assessment/Plan Assess & Plan/Chief Complaint CVA on left. Hypertension. Hyperlipidemia. Tobacco usage. Abdominal aortic aneurysm. GERD . 03/10/17. 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 Hypertension. Hyperlipidemia. Tobacco usage. Patient working hard and moving left arm today. . 03/11/17. 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 Hypertension. Hyperlipidemia. Tobacco usage. Patient working hard and improving. . 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 Hypertension. Hyperlipidemia Tobacco usage. Patient stomach doing better . 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 nauseous. Hypertension. Hyperlipidemia. Tobacco usage. . 03/16/17. 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 Hypertension. Constipation. Hyperlipidemia. Tobacco usage. . 03/17/17. 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 Hypertension. Constipation. Hyperlipidemia. Patient seems positive. Patient working hard . 03/18/17. 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 Hypertension. Did not have a bowel movement today. Hyperlipidemia. Patient working on walking. . 03/19/17. 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 Hypertension. Hyperlipidemia. Constipation resolved. . 03/22/17. 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 Hypertension. Hyperlipidemia. Patient doing better with left upper extremity and left lower extremity. . 03/23. 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 Hypertension.. patient doing better with upper extremity than lower extremity and left. . 03/24/17. 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 Hypertension. Patient improving with left upper extremity. . 03/25/17. 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 Hypertension. Patient doing better with his left upper extremity. . 03/26/17. 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 Hypertension. Left lower extremity having problems. . 03/29/17. 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 Hypertension. Patient still needs work Clinical Quality Measures DVT/VTE Risk/Contraindication: Risk Factor Score Per Nursin RFS Level Per Nursing on Admit: 4+=Very High JAIME ROBERSON DO Mar 29, 2017 08:58
[2017-03-29] MEDS: CLOPIDOGREL 75 MG (PLAVIX) TABLET PO SCH (09:34)
[2017-03-29] MEDS: lisINopril 10 MG (PRINIVIL) TABLET PO SCH (09:34)
--- NOTE | 2017-03-29 15:01 | Therapy Group Daily Note ---
Therapy Daily Group Note Patient Education Topic Home Safety, Fall Prevention, Home Safety, Energy Cons, Exercises Exercises LE Seated Exercise, UE Exercise Other/Notes Each pt either walked, propelled [facility], or were transported by [facility] to the group therapy session. Pt participated in socialization with other individuals admitted to the IRF. Each pt was educated on safety in the home. For stairs, focus included using handrails on both sides at adequate height. For safety in the kitchen, pt was educated on placing emergency info on the refrigerator, placing sharp objects in a drawer, tapping down a rug near the sink to prevent slipping, and utilizing adequate lighting to prevent falls. In the bedroom, the pt was educated on keeping the bedroom clean, placing cords near the wall, and using an adequate lighting source. Pt demonstrated active listening skills by contributing to the discussion on what they did to ensure safety in their own home. In his home, pt placed emergency contact info on his refrigerator. Pt performed exercises and lead the group in an exercise. Exercises included UE and LE as well as neck and core exercises. At the conclusion of tx, each pt was taken back to their rooms by way of walking, propelling [facility], or transportation by [facility]. Start Time: 13:00 Stop Time: 14:30 Total Billed Treatment Time: 90 Total Billed Treatment 1 visit 90 min EDMUNDO MEDINA PT Mar 29, 2017 15:01
[2017-03-29 18:00] VITALS: BP 108/64
--- NOTE | 2017-03-29 18:50 | PM & R (SOAP) Progress Note ---
Subjective Time Seen by Provider: 18:30 Subjective/Events-last exam Patient was seen in his room this evening Patient Min assist for transfers Patient able to active hip flex and slr on left Little return left UE.Accucheks noted Review of Systems Neurological: Weakness Objective Exam Last Set of Vital Signs Vital Signs Date Time Temp Pulse Resp B/P (MAP) Pulse Ox O2 Delivery O2 Flow Rate FiO2 03/29/17 18:00 98.0 74 16 108/64 (79) 96 Room Air Capillary Refill : Less Than 3 Seconds I&O Intake and Output 03/29/17 00:00 Intake Total 1110 ml Balance 1110 ml Intake Oral 1110 ml # Voids 4 General: Alert, Oriented X3, Cooperative, No Acute Distress HEENT: Atraumatic, PERRLA, EOMI, Mucous Memb Moist/[place] Neck: Supple, No JVD Lungs: Clear to Auscultation Heart: Regular Rate Abdomen: Normal Bowel Sounds, Soft, No Tenderness Extremities: No Edema Neuro: Other (Left LE flaccid with trace return LUE) Psych/Mental Status: Mental Status NL Results Lab Laboratory Tests 03/27/17 04:43: Glucometer 126H 03/27/17 16:51: Glucometer 133H 03/28/17 06:05: Glucometer 126H 03/28/17 16:41: Glucometer 115H 03/29/17 06:06: Glucometer 141H 03/29/17 17:31: Glucometer 94 Assessment/Plan Assessment Rt MCA CVA with Left HP HTN controlled DM2 controlled Tobacco abuse declines Patch 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 GERD without espohagitis AAA without rupture Mild nausea-Zofran ordered prn-improved Constipation meds to be adjusted as needed-improved had BM Plan Continue PT/OT ST has assessed and signed off Decreased Accucheks as per above-stable Patient has 2 sons and a daughter in this area to help out upon discharge Zofran for nausea-improved Current meds reviewed Accucheks noted Appreciate ABD Xray results Adjust meds for constipation as needed Next Team Conference 03-31-17 NNEKA MARTIN MD Mar 29, 2017 18:50
[2017-03-29] MEDS: ATORVASTATIN 40 MG (LIPITOR) TABLET PO SCH (20:40)
[2017-03-30 04:30] VITALS: BP 121/80
[2017-03-30] MEDS: GLIMEPIRIDE 2 MG (AMARYL) TAB PO SCH (05:45)
[2017-03-30] MEDS: metFORMIN 500 MG (GLUCOPHAGE) TAB PO SCH ×2 (05:45→16:51)
[2017-03-30] MEDS: lisINopril 10 MG (PRINIVIL) TABLET PO SCH (07:51)
[2017-03-30] MEDS: CLOPIDOGREL 75 MG (PLAVIX) TABLET PO SCH (07:51)
--- NOTE | 2017-03-30 07:58 | Occupational Ther Daily Note ---
OT Current Status-Daily Note Subjective Pt alert, sitting in w/c. Pt agreed to therapy. No c/o pain. Mental Status/Objective Patient Orientation: Person, Place, Time, Situation Functional [place] Measure 0=Not Assessed/NA 4=Minimal Assistance 1=Total Assistance 5=Supervision or Setup 2=Maximal Assistance 6=Modified [place] 3=Moderate Assistance 7=Complete [place] ADL-Treatment Functional [place] Measure 0=Not Assessed/NA 4=Minimal Assistance 1=Total Assistance 5=Supervision or Setup 2=Maximal Assistance 6=Modified [place] 3=Moderate Assistance 7=Complete IndependenceIRFPAI Quality Coding Scale 6 Independent with activity with or without an assistive device 5 Patient requires set up or clean up by helper. Patient completes activity by themselves 4 Supervision or touching assist (CGA). [place] provide cues , steadying assist 3 The helper provides less than half the effort to complete the activity 2 The helper provides more than half the effort to complete the activity 1 Dependent. The helper does all the effort to complete an activity 7 Patient refused to complete or attempt activity 9 The patient did not perform the activity before the current illness or injury 88 Not attempted due to Medical conditions or safety concerns Other Treatment Pt completed grooming prior to OT session. Pt maneuvered w/c into therapy gym. Arm bike completed 10 min without resistance backward rotation, 4 minutes working on grasp during rotation then 6 min with hand wrapped on handle to work on L UE movement. Electrical stimulation to L shldr to increase muscle movements, 6 spaulding. Taping to L shldr to prevent further subluxation of L shldr. Pt worked on static standing to increase balance when hiking pants over hips. Pt was able to stand with minimal support on L LE. Pt was able to initiate balance correction throughout time. After therapy, pt sitting in w/c at ARU table. All needs met in room. OT Short Term Goals Short Term Goals Time Frame: Mar 22, 2017 Grooming(FIM): 5 Bathing(FIM): 4 Toileting(FIM): 3 Toilet/Commode Transfer(FIM): 4 Additional Short Term Goals: 2-Verbalize Understanding, 3-ImproveStrength/Curtis 1=Demonstrate adherence to instructed precautions during ADL tasks. 2=Patient will verbalize/demonstrate understanding of assistive devices/ modifications for ADL. 3=Patient will improve strength/tolerance for activity to enable patient to perform ADL's. OT Care Home Goals Care Home Goals Time Frame: Apr 05, 2017 Eating (FIM): 6 Eating (QC): 6 Groomin Oral Hygiene (QC): 6 Bathing(FIM): 5 Shower/Bathe Self (QC): 5 Upper Body Dressing(FIM): 6 Upper Body Dressing (QC): 6 Lower Body Dressing(FIM): 5 Lower Body Dressing (QC): 5 On/Off Footwear (QC): 5 Toileting(FIM): 5 Toileting Hygiene (QC): 5 Toilet/Commode Transfer(FIM): 5 Toilet/Commode Transfer (QC): 5 Shower Transfer(FIM): 5 Additional Goals: 2-Verbalize Understanding, 3-ImproveStrength/Curtis 1=Demonstrate adherence to instructed precautions during ADL tasks. 2=Patient will verbalize/demonstrate understanding of assistive devices/ modifications for ADL. 3=Patient will improve strength/tolerance for activity to enable patient to perform ADL's. OT Education/Plan Problem List/Assessment Pt would benefit from skilled OT to increase his independence in basic self care and to decrease caregiver burden. Discharge Recommendations Plan/Recommendations: Continue POC Treatment Plan/Plan of Care Patient would benefit from OT for education, treatment and training to promote independence in ADL's, mobility, safety and/or upper extremity function for ADL' s. Plan of Care: ADL Retraining, Functional Mobility, Group Exercise/Act as Ind ( educaiton, exercise, activity tolerance, functional acitivites, socialization), UE Funct Exercise/Act, UE Neuromus Re-Ed/Coord, W/C Management Training Treatment Duration: Apr 05, 2017 Frequency: At least 5 of 7 days/Wk (IRF) Estimated Hrs Per Day: 1.5 hours per day Agreement: Yes Rehab Potential: Good Time/GCodes Start Time: 07:00 Stop Time: 08:00 Total Time Billed (hr/min): 60 Billed Treatment Time 1 visit-NM 4 (60 min) AARTI STARR Mar 30, 2017 07:58
--- NOTE | 2017-03-30 08:36 | Progress Note (SOAP) ---
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 Patient slowly improving. Left upper arm is better than the left lower leg Objective Exam Vital Signs Date Time Temp Pulse Resp B/P (MAP) Pulse Ox O2 Delivery O2 Flow Rate FiO2 03/30/17 04:30 98.0 79 18 121/80 (94) 98 Room Air 03/29/17 20:00 Room Air 03/29/17 18:00 98.0 74 16 108/64 (79) 96 Room Air 03/29/17 09:00 Room Air I & O 03/30/17 07:00 Intake Total 1990 ml Balance 1990 ml Capillary Refill : Less Than 3 Seconds General Appearance: No Apparent Distress, WD/WN Results Lab Laboratory Tests 03/29/17 17:31: Glucometer 94 03/30/17 05:02: Glucometer 114H Assessment/Plan Assessment/Plan Assess & Plan/Chief Complaint CVA on left. Hypertension. Hyperlipidemia. Tobacco usage. Abdominal aortic aneurysm. GERD . 03/10/17. 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 Hypertension. Hyperlipidemia. Tobacco usage. Patient working hard and moving left arm today. . 03/11/17. 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 Hypertension. Hyperlipidemia. Tobacco usage. Patient working hard and improving. . 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 Hypertension. Hyperlipidemia Tobacco usage. Patient stomach doing better . 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 nauseous. Hypertension. Hyperlipidemia. Tobacco usage. . 03/16/17. 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 Hypertension. Constipation. Hyperlipidemia. Tobacco usage. . 03/17/17. 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 Hypertension. Constipation. Hyperlipidemia. Patient seems positive. Patient working hard . 03/18/17. 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 Hypertension. Did not have a bowel movement today. Hyperlipidemia. Patient working on walking. . 03/19/17. 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 Hypertension. Hyperlipidemia. Constipation resolved. . 03/22/17. 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 Hypertension. Hyperlipidemia. Patient doing better with left upper extremity and left lower extremity. . 03/23. 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 Hypertension.. patient doing better with upper extremity than lower extremity and left. . 03/24/17. 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 Hypertension. Patient improving with left upper extremity. . 03/25/17. 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 Hypertension. Patient doing better with his left upper extremity. . 03/26/17. 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 Hypertension. Left lower extremity having problems. . 03/29/17. 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 Hypertension. Patient still needs work. . 03/30/17. 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 Hypertension. Diabetes under good control. Patient making slow progress but improving Clinical Quality Measures DVT/VTE Risk/Contraindication: Risk Factor Score Per Nursin RFS Level Per Nursing on Admit: 4+=Very High JAIME ROBERSON DO Mar 30, 2017 08:36
--- NOTE | 2017-03-30 08:57 | Physical Therapy Daily Note ---
PT Daily Note-Current Subjective Pt is sitting in [facility] pre tx and reports that he had diarrhea this morning, but otherwise is feeling fine and has no pain. Pt agrees to PT. Pain Numeric Pain Scale: 0-No Pain Location: No Pain Reported Appearance Pt is sitting in [facility] post tx with all needs met at this time. Nurse call, phone , and tray are within reach. Mental Status Patient Orientation: Normal For Age Transfers Functional [place] Measure 0=Not Assessed/NA 4=Minimal Assistance 1=Total Assistance 5=Supervision or Setup 2=Maximal Assistance 6=Modified [place] 3=Moderate Assistance 7=Complete IndependenceIRFPAI Quality Coding Scale 6 Independent with activity with or without an assistive device 5 Patient requires set up or clean up by helper. Patient completes activity by themselves 4 Supervision or touching assist (CGA). [place] provide cues , steadying assist 3 The helper provides less than half the effort to complete the activity 2 The helper provides more than half the effort to complete the activity 1 Dependent. The helper does all the effort to complete an activity 7 Patient refused to complete or attempt activity 9 The patient did not perform the activity before the current illness or injury 88 Not attempted due to Medical conditions or safety concerns Transfers (B, C, W/C) (FIM): 4 Scootin Rollin Supine to/from Sit: 4 Sit to/from Stand: 4 Bed to/from Chair: 4 SBA required for bed mobility with skilled verbal instruction needed for safety and technique. Min A needed for supine to/from sitting edge of to the L due to L hemiplegia. Weight Bearing Right Lower Extremity: Right Full Weight Bearing Left Lower Extremity: Left Full Weight Bearing Gait Training Does the Patient Walk?: Yes Gait (FIM): 1 Distance: 40 feet x2 Gait Level of Assist: 3 Gait Persons Needed: 1 Gait Assistive Device: Walker Wale Pt requires mod A and skilled verbal instruction for gait training. Cues include to shorten swing with the LLE, lean to the R before swing, and stand up straight. Pt wears an AFO and knee immobilizer on the LLE. Wheelchair Training Does the Pt Use a Wheelchair?: Yes Wheelchair (FIM): 2 Distance: 100 feet x1 Type of Wheelchair: Manual Exercises Supine Ex: Rolling (3 x3 to both sides) Bed mobility performed to improve independence. Patient practiced laying down to both sides and rolling each way. Treatments Pt performed [facility] mobility, bed mobility, functional activity, and gait training. Assessment Current Status: Fair Progress Pt is improving bed mobility but continues to have trouble transferring to the with supine to sit edge of bed. Min A needed during this transfer to manage the LLE. Pt is improving gait mobility as he is requiring less assistance to ambulate. PT Short Term Goals Short Term Goals Time Frame: Mar 22, 2017 Gait (FIM): 2 Distance (FIM): 1=up to 49 ft Gait Assistive Device: Walker Wale Wheelchair (FIM): 6 (met) Wheelchair distance (FIM): 3=150 ft Wheelchair Distance: 150' PT Intermediate Goals Morning Show Host Goals PT Morning Show Host Goals Time Frame: Apr 05, 2017 Transfers (B,C,W/C) (FIM): 6 Sit to Lying (QC): 6 Lying-Sitting on Side/Bed(QC): 6 Sit to Stand (QC): 6 Rollin Roll Left to Right (QC): 6 Chair/Nea-hx-Jvfnz Xfer(QC): 6 Car Transfer (QC): 5 Does the Patient Walk: No and Walking Goal IS indicated Gait (FIM): 5 Gait distance (FIM): 3=150 ft Walk 10 feet (QC): 5 Walk 10ft-Uneven Surface(QC): 5 Walk 50ft with 2 Turns (QC): 5 Walk 150 ft (QC): 5 Gait Level of Assist: 5 Gait Assistive Device: Walker Wale Does the Pt use WC or Scooter?: Yes Wheelchair (FIM): 6 Wheelchair distance (FIM): 3=150 ft Wheel 50 feet with 2 turns (QC: 6 Stairs (FIM): 2 # of Steps: 4 1 Step (curb) (QC): 4 4 Steps (QC): 4 12 Steps (QC): 88 Picking up an Object (QC): 88 PT Plan Problem List Problem List: Activity Tolerance, Functional Strength, Safety, Balance, Gait, Transfer, Bed Mobility, ROM Treatment/Plan Treatment Plan: Continue Plan of Care Treatment Plan: Bed Mobility, Education, Functional Activity Curtis, Functional Strength, Group Therapy, Gait, Safety, Therapeutic Exercise, Transfers Treatment Duration: Apr 05, 2017 Frequency: At least 5 of 7 days/Wk (IRF) Estimated Hrs Per Day: 1.5 hours per day Patient and/or Family Agrees t: Yes Safety Risks/Education Patient Education: Gait Training, Transfer Techniques, Correct Positioning, W/ C Management, Reviewed Don/Doff Brace, Safety Issues Teaching Recipient: Patient, Family Teaching Methods: Demonstration, Discussion Response to Teaching: Reinforcement Needed Time/GCodes Time In: 800 Time Out: 900 Total Billed Treatment Time: 60 Total Billed Treatment 1 visit 15 min GT 45 min FA MARJ FARIA PT Mar 30, 2017 08:57
--- NOTE | 2017-03-30 12:39 | PM & R (SOAP) Progress Note ---
Subjective Time Seen by Provider: 07:50 Subjective/Events-last exam Patient was seen in his room this AM Patient min assist for transfers Review of Systems Neurological: Weakness Objective Exam Last Set of Vital Signs Vital Signs Date Time Temp Pulse Resp B/P (MAP) Pulse Ox O2 Delivery O2 Flow Rate FiO2 03/30/17 08:37 Room Air 03/30/17 04:30 98.0 79 18 121/80 (94) 98 Capillary Refill : Less Than 3 Seconds I&O Intake and Output 03/30/17 00:00 Intake Total 1640 ml Balance 1640 ml Intake Oral 1640 ml # Voids 5 General: Alert, Oriented X3, Cooperative, No Acute Distress HEENT: Atraumatic, PERRLA, EOMI, Mucous Memb Moist/[place] Neck: Supple, No JVD Lungs: Clear to Auscultation Heart: Regular Rate Abdomen: Normal Bowel Sounds, Soft, No Tenderness Extremities: No Edema Neuro: Other (Left LE flaccid with trace return LUE) Psych/Mental Status: Mental Status NL Results Lab Laboratory Tests 03/27/17 16:51: Glucometer 133H 03/28/17 06:05: Glucometer 126H 03/28/17 16:41: Glucometer 115H 03/29/17 06:06: Glucometer 141H 03/29/17 17:31: Glucometer 94 03/30/17 05:02: Glucometer 114H Assessment/Plan Assessment Rt MCA CVA with Left HP HTN controlled DM2 controlled Tobacco abuse declines Patch 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 GERD without espohagitis AAA without rupture Mild nausea-Zofran ordered prn-improved Constipation meds to be adjusted as needed-improved had BM Plan Continue PT/OT ST has assessed and signed off Decreased Accucheks as per above-stable Patient has 2 sons and a daughter in this area to help out upon discharge Zofran for nausea-improved Current meds reviewed Accucheks noted Appreciate ABD Xray results Adjust meds for constipation as needed Next Team Conference tomorrow 03-31-17 NNEKA MARTIN MD Mar 30, 2017 12:39
--- NOTE | 2017-03-30 12:53 | Occupational Ther Daily Note ---
OT Current Status-Daily Note Subjective Pt alert, sitting in w/c. Pt stated that he was tired and had diarrhea this morning. Pt agreed to therapy. No c/o pain at this time. Mental Status/Objective Patient Orientation: Person, Place, Time, Situation Functional [place] Measure 0=Not Assessed/NA 4=Minimal Assistance 1=Total Assistance 5=Supervision or Setup 2=Maximal Assistance 6=Modified [place] 3=Moderate Assistance 7=Complete [place] ADL-Treatment Functional [place] Measure 0=Not Assessed/NA 4=Minimal Assistance 1=Total Assistance 5=Supervision or Setup 2=Maximal Assistance 6=Modified [place] 3=Moderate Assistance 7=Complete IndependenceIRFPAI Quality Coding Scale 6 Independent with activity with or without an assistive device 5 Patient requires set up or clean up by helper. Patient completes activity by themselves 4 Supervision or touching assist (CGA). [place] provide cues , steadying assist 3 The helper provides less than half the effort to complete the activity 2 The helper provides more than half the effort to complete the activity 1 Dependent. The helper does all the effort to complete an activity 7 Patient refused to complete or attempt activity 9 The patient did not perform the activity before the current illness or injury 88 Not attempted due to Medical conditions or safety concerns Other Treatment Pt completed L UE exercises for grasp and pinch strength and dexterity. Pt was able to grasp cones and place across midline. Decrease L shldr flexion, good adduction movement. Pt able to isolate fingers to pinch and grasp small items. Good wrist flexion/extension with tasks. After therapy, pt sitting in w/c maneuvering around [facility]. All needs met. OT Short Term Goals Short Term Goals Time Frame: Mar 22, 2017 Grooming(FIM): 5 Bathing(FIM): 4 Toileting(FIM): 3 Toilet/Commode Transfer(FIM): 4 Additional Short Term Goals: 2-Verbalize Understanding, 3-ImproveStrength/Curtis 1=Demonstrate adherence to instructed precautions during ADL tasks. 2=Patient will verbalize/demonstrate understanding of assistive devices/ modifications for ADL. 3=Patient will improve strength/tolerance for activity to enable patient to perform ADL's. OT Cloth Examiner Machine Goals Cloth Examiner Machine Goals Time Frame: Apr 05, 2017 Eating (FIM): 6 Eating (QC): 6 Groomin Oral Hygiene (QC): 6 Bathing(FIM): 5 Shower/Bathe Self (QC): 5 Upper Body Dressing(FIM): 6 Upper Body Dressing (QC): 6 Lower Body Dressing(FIM): 5 Lower Body Dressing (QC): 5 On/Off Footwear (QC): 5 Toileting(FIM): 5 Toileting Hygiene (QC): 5 Toilet/Commode Transfer(FIM): 5 Toilet/Commode Transfer (QC): 5 Shower Transfer(FIM): 5 Additional Goals: 2-Verbalize Understanding, 3-ImproveStrength/Curtis 1=Demonstrate adherence to instructed precautions during ADL tasks. 2=Patient will verbalize/demonstrate understanding of assistive devices/ modifications for ADL. 3=Patient will improve strength/tolerance for activity to enable patient to perform ADL's. OT Education/Plan Problem List/Assessment Pt would benefit from skilled OT to increase his independence in basic self care and to decrease caregiver burden. Discharge Recommendations Plan/Recommendations: Continue POC Treatment Plan/Plan of Care Patient would benefit from OT for education, treatment and training to promote independence in ADL's, mobility, safety and/or upper extremity function for ADL' s. Plan of Care: ADL Retraining, Functional Mobility, Group Exercise/Act as Ind ( educaiton, exercise, activity tolerance, functional acitivites, socialization), UE Funct Exercise/Act, UE Neuromus Re-Ed/Coord, W/C Management Training Treatment Duration: Apr 05, 2017 Frequency: At least 5 of 7 days/Wk (IRF) Estimated Hrs Per Day: 1.5 hours per day Agreement: Yes Rehab Potential: Good Time/GCodes Start Time: 11:00 Stop Time: 11:30 Total Time Billed (hr/min): 30 Billed Treatment Time 1 visit-NM 2 (30 min) AARTI STARR Mar 30, 2017 12:53
--- NOTE | 2017-03-30 14:48 | Physical Therapy Daily Note ---
PT Daily Note-Current Subjective Pt is sitting in [facility] in room pre tx with no complaints of pain and agrees to PT. We will be performing some family training with patient's son. Pain Numeric Pain Scale: 0-No Pain Location: No Pain Reported Appearance Pt is laying in bed post tx with son in attendance. Pt has nurse call, phone, and tray within reach. Mental Status Patient Orientation: Normal For Age Transfers Functional [place] Measure 0=Not Assessed/NA 4=Minimal Assistance 1=Total Assistance 5=Supervision or Setup 2=Maximal Assistance 6=Modified [place] 3=Moderate Assistance 7=Complete IndependenceIRFPAI Quality Coding Scale 6 Independent with activity with or without an assistive device 5 Patient requires set up or clean up by helper. Patient completes activity by themselves 4 Supervision or touching assist (CGA). [place] provide cues , steadying assist 3 The helper provides less than half the effort to complete the activity 2 The helper provides more than half the effort to complete the activity 1 Dependent. The helper does all the effort to complete an activity 7 Patient refused to complete or attempt activity 9 The patient did not perform the activity before the current illness or injury 88 Not attempted due to Medical conditions or safety concerns Transfers (B, C, W/C) (FIM): 4 Scootin Rollin Supine to/from Sit: 4 Sit to/from Stand: 4 Bed to/from Chair: 4 Della/CGA required for transfers and bed mobility with proper positioning to ensure safety. Patient's son performed the stand pivot transfer to each side. He also performed bed mobility with supine to sit and rolling. Weight Bearing Right Lower Extremity: Right Full Weight Bearing Left Lower Extremity: Left Full Weight Bearing Gait Training Does the Patient Walk?: Yes Wheelchair Training Does the Pt Use a Wheelchair?: Yes Wheelchair (FIM): 2 Distance: 100 feet x2 Wheelchair Level of Assist: 5 Type of Wheelchair: Manual Exercises Supine Ex: Bridging (10 x2 with manual assistance at L knee to assist with bridge) Treatments Pt performed H mobility, bed mobility, and functional mobility. Tx focus was on family training for bed mobility and transfers. Assessment Current Status: Fair Progress Pt and son demonstrated understanding safe and proper technique of bed mobility and transfers. Pt is performing bed mobility and transfers with min A and this is slowly improving to CGA for safety. PT Short Term Goals Short Term Goals Time Frame: Mar 22, 2017 Gait (FIM): 2 Distance (FIM): 1=up to 49 ft Gait Assistive Device: Walker Wale Wheelchair (FIM): 6 (met) Wheelchair distance (FIM): 3=150 ft Wheelchair Distance: 100 feet x1 PT Retirement Goals Cleat Maker Goals PT Cleat Maker Goals Time Frame: Apr 05, 2017 Transfers (B,C,W/C) (FIM): 6 Sit to Lying (QC): 6 Lying-Sitting on Side/Bed(QC): 6 Sit to Stand (QC): 6 Rollin Roll Left to Right (QC): 6 Chair/Odl-jm-Rlbxm Xfer(QC): 6 Car Transfer (QC): 5 Does the Patient Walk: No and Walking Goal IS indicated Gait (FIM): 5 Gait distance (FIM): 3=150 ft Walk 10 feet (QC): 5 Walk 10ft-Uneven Surface(QC): 5 Walk 50ft with 2 Turns (QC): 5 Walk 150 ft (QC): 5 Gait Level of Assist: 5 Gait Assistive Device: Walker Wale Does the Pt use WC or Scooter?: Yes Wheelchair (FIM): 6 Wheelchair distance (FIM): 3=150 ft Wheel 50 feet with 2 turns (QC: 6 Stairs (FIM): 2 # of Steps: 4 1 Step (curb) (QC): 4 4 Steps (QC): 4 12 Steps (QC): 88 Picking up an Object (QC): 88 PT Plan Problem List Problem List: Activity Tolerance, Functional Strength, Safety, Balance, Gait, Transfer, Bed Mobility, ROM Treatment/Plan Treatment Plan: Continue Plan of Care Treatment Plan: Bed Mobility, Education, Functional Activity Curtis, Functional Strength, Group Therapy, Gait, Safety, Therapeutic Exercise, Transfers Treatment Duration: Apr 05, 2017 Frequency: At least 5 of 7 days/Wk (IRF) Estimated Hrs Per Day: 1.5 hours per day Patient and/or Family Agrees t: Yes Safety Risks/Education Patient Education: Transfer Techniques, Correct Positioning, W/C Management, Instructions to Caregiver, Disease Process, Safety Issues Teaching Recipient: Patient, Family Teaching Methods: Demonstration, Discussion Response to Teaching: Reinforcement Needed Time/GCodes Time In: 1330 Time Out: 1400 Total Billed Treatment Time: 30 Total Billed Treatment 1 visit 30 min MARJ LARSEN PT Mar 30, 2017 14:48
[2017-03-30 18:29] VITALS: BP 120/73
[2017-03-30] MEDS: ATORVASTATIN 40 MG (LIPITOR) TABLET PO SCH (19:33)
[2017-03-31 05:05] VITALS: BP 118/74
[2017-03-31] MEDS: metFORMIN 500 MG (GLUCOPHAGE) TAB PO SCH ×2 (06:04→17:19)
[2017-03-31] MEDS: GLIMEPIRIDE 2 MG (AMARYL) TAB PO SCH (06:04)
[2017-03-31] MEDS: lisINopril 10 MG (PRINIVIL) TABLET PO SCH (07:52)
[2017-03-31] MEDS: CLOPIDOGREL 75 MG (PLAVIX) TABLET PO SCH (07:53)
--- NOTE | 2017-03-31 07:59 | Occupational Ther Daily Note ---
OT Current Status-Daily Note Subjective Pt alert, sitting in w/c. Pt agreed to therapy. No c/o pain at this time. Mental Status/Objective Patient Orientation: Person, Place, Time, Situation Functional [place] Measure 0=Not Assessed/NA 4=Minimal Assistance 1=Total Assistance 5=Supervision or Setup 2=Maximal Assistance 6=Modified [place] 3=Moderate Assistance 7=Complete [place] ADL-Treatment Discussed treatment plan with OTR/L. After therapy, pt sitting in w/c at [facility]. All needs met. Functional [place] Measure 0=Not Assessed/NA 4=Minimal Assistance 1=Total Assistance 5=Supervision or Setup 2=Maximal Assistance 6=Modified [place] 3=Moderate Assistance 7=Complete IndependenceIRFPAI Quality Coding Scale 6 Independent with activity with or without an assistive device 5 Patient requires set up or clean up by helper. Patient completes activity by themselves 4 Supervision or touching assist (CGA). [place] provide cues , steadying assist 3 The helper provides less than half the effort to complete the activity 2 The helper provides more than half the effort to complete the activity 1 Dependent. The helper does all the effort to complete an activity 7 Patient refused to complete or attempt activity 9 The patient did not perform the activity before the current illness or injury 88 Not attempted due to Medical conditions or safety concerns Grooming (FIM): 6 (Pt completes own grooming at w/c level in front of sink.) Oral Hygiene (QC): 6 Bathing (FIM): 4 (Using shower bench, hand held shower, long handle sponge and grabbar pt is able to wash/dry all areas except buttocks. Pt is able to pull to stand then assist to balance while pt cleanses buttocks.) Bathing Location: L Arm, R Arm, L Upper Leg, R Upper Leg, L Lower Leg ( including foot), R Lower Leg (including foot), Chest, Abdomen, Buttocks, Perineal Area Shower/Bathe Self (QC): 3 Upper Body (FIM): 6 (Retrieves clothing at w/c level then is able to don/doff clothing by self.) Upper Body Dressing (QC): 6 Lower Body Dressing (FIM): 4 (Retrieves clothing at w/c level. Pt is able to don/doff clothing over feet and pull up legs. Assist in standing to hike pants over hips.) Lower Body Dressing (QC): 3 On/Off Footwear (QC): 6 (Pt able to don/doff footwear by self.) Shower Transfer(FIM): 4 (Min A to transfer to L side then close SBA to transfer to R side using grabbar and w/c.) Other Treatment Pt complete L UE AROM tasks to increase strength and AROM for daily functional tasks. After therapy, pt sitting in w/c in [facility] area. All needs met in room. OT Short Term Goals Short Term Goals Time Frame: Mar 22, 2017 Grooming(FIM): 5 Bathing(FIM): 4 Toileting(FIM): 3 Toilet/Commode Transfer(FIM): 4 Additional Short Term Goals: 2-Verbalize Understanding, 3-ImproveStrength/Curtis 1=Demonstrate adherence to instructed precautions during ADL tasks. 2=Patient will verbalize/demonstrate understanding of assistive devices/ modifications for ADL. 3=Patient will improve strength/tolerance for activity to enable patient to perform ADL's. OT [place] Goals Senior Living Goals Time Frame: Apr 05, 2017 Eating (FIM): 6 Eating (QC): 6 Groomin Oral Hygiene (QC): 6 Bathing(FIM): 5 Shower/Bathe Self (QC): 5 Upper Body Dressing(FIM): 6 Upper Body Dressing (QC): 6 Lower Body Dressing(FIM): 5 Lower Body Dressing (QC): 5 On/Off Footwear (QC): 5 Toileting(FIM): 5 Toileting Hygiene (QC): 5 Toilet/Commode Transfer(FIM): 5 Toilet/Commode Transfer (QC): 5 Shower Transfer(FIM): 5 Additional Goals: 2-Verbalize Understanding, 3-ImproveStrength/Curtis 1=Demonstrate adherence to instructed precautions during ADL tasks. 2=Patient will verbalize/demonstrate understanding of assistive devices/ modifications for ADL. 3=Patient will improve strength/tolerance for activity to enable patient to perform ADL's. OT Education/Plan Problem List/Assessment Pt would benefit from skilled OT to increase his independence in basic self care and to decrease caregiver burden. Discharge Recommendations Plan/Recommendations: Continue POC Treatment Plan/Plan of Care Patient would benefit from OT for education, treatment and training to promote independence in ADL's, mobility, safety and/or upper extremity function for ADL' s. Plan of Care: ADL Retraining, Functional Mobility, Group Exercise/Act as Ind ( educaiton, exercise, activity tolerance, functional acitivites, socialization), UE Funct Exercise/Act, UE Neuromus Re-Ed/Coord, W/C Management Training Treatment Duration: Apr 05, 2017 Frequency: At least 5 of 7 days/Wk (IRF) Estimated Hrs Per Day: 1.5 hours per day Agreement: Yes Rehab Potential: Good Time/GCodes Start Time: 07:00 Stop Time: 08:00 Total Time Billed (hr/min): 60 Billed Treatment Time 1 visit-ADL 3 (40 min) NM 1 (20 min) AARTI STARR Mar 31, 2017 07:59
--- NOTE | 2017-03-31 08:21 | Progress Note (SOAP) ---
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 Patient needs much help when he walks. Somebody had a hold him off. 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 Hypertension. Hyperlipidemia. Tobacco usage. Abdominal aortic aneurysm. GERD . 03/10/17. 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 Hypertension. Hyperlipidemia. Tobacco usage. Patient working hard and moving left arm today. . 03/11/17. 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 Hypertension. Hyperlipidemia. Tobacco usage. Patient working hard and improving. . 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 Hypertension. Hyperlipidemia Tobacco usage. Patient stomach doing better . 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 nauseous. Hypertension. Hyperlipidemia. Tobacco usage. . 03/16/17. 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 Hypertension. Constipation. Hyperlipidemia. Tobacco usage. . 03/17/17. 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 Hypertension. Constipation. Hyperlipidemia. Patient seems positive. Patient working hard . 03/18/17. 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 Hypertension. Did not have a bowel movement today. Hyperlipidemia. Patient working on walking. . 03/19/17. 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 Hypertension. Hyperlipidemia. Constipation resolved. . 03/22/17. 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 Hypertension. Hyperlipidemia. Patient doing better with left upper extremity and left lower extremity. . 03/23. 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 Hypertension.. patient doing better with upper extremity than lower extremity and left. . 03/24/17. 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 Hypertension. Patient improving with left upper extremity. . 03/25/17. 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 Hypertension. Patient doing better with his left upper extremity. . 03/26/17. 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 Hypertension. Left lower extremity having problems. . 03/29/17. 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 Hypertension. Patient still needs work. . 03/30/17. 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 Hypertension. Diabetes under good control. Patient making slow progress but improving. . 03/31/17. 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 Hypertension good control. Diabetes good. For patient to walk needs somebody to help hold him up Clinical Quality Measures DVT/VTE Risk/Contraindication: Risk Factor Score Per Nursin RFS Level Per Nursing on Admit: 4+=Very High JAIME ROBERSON DO Mar 31, 2017 08:21
--- NOTE | 2017-03-31 09:10 | PM & R (SOAP) Progress Note ---
Subjective Time Seen by Provider: 08:20 Subjective/Events-last exam Patient was seen in [facility] and on commonarea of unit with PT Patient Mod assist for Gait with hemiwalker and knee immobilizer Review of Systems Neurological: Weakness Objective Exam Last Set of Vital Signs Vital Signs Date Time Temp Pulse Resp B/P (MAP) Pulse Ox O2 Delivery O2 Flow Rate FiO2 03/31/17 08:51 Room Air 03/31/17 05:05 98.3 68 18 118/74 (89) 97 Capillary Refill : Less Than 3 Seconds I&O Intake and Output 03/31/17 00:00 Intake Total 1790 ml Balance 1790 ml Intake Oral 1790 ml # Voids 6 # Bowel Movements 1 General: Alert, Oriented X3, Cooperative, No Acute Distress HEENT: Atraumatic, PERRLA, EOMI, Mucous Memb Moist/[place] Neck: Supple, No JVD Lungs: Clear to Auscultation Heart: Regular Rate Abdomen: Normal Bowel Sounds, Soft, No Tenderness Extremities: No Edema Neuro: Other (Left LE flaccid with trace return LUE) Psych/Mental Status: Mental Status NL Results Lab Laboratory Tests 03/28/17 16:41: Glucometer 115H 03/29/17 06:06: Glucometer 141H 03/29/17 17:31: Glucometer 94 03/30/17 05:02: Glucometer 114H 03/30/17 16:06: Glucometer 114H 03/31/17 05:01: Glucometer 129H Assessment/Plan Assessment Rt MCA CVA with Left HP HTN controlled DM2 controlled Tobacco abuse declines Patch 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 GERD without espohagitis AAA without rupture Mild nausea-Zofran ordered prn-improved Constipation meds to be adjusted as needed-improved had BM Plan Continue PT/OT ST has assessed and signed off Decreased Accucheks as per above-stable Patient has 2 sons and a daughter in this area to help out upon discharge Zofran for nausea-improved Current meds reviewed Accucheks noted Appreciate ABD Xray results Adjust meds for constipation as needed Next Team Conference later today-See report for full functional update and POC and NNEKA CARDENAS MD Mar 31, 2017 09:10
--- NOTE | 2017-03-31 10:41 | Physical Therapy Daily Note ---
PT Daily Note-Current Subjective Pt is sitting in [facility] in visiting area pre tx with no complaints of pain and agrees to PT. Pain Numeric Pain Scale: 0-No Pain Location: No Pain Reported Appearance Pt is laying in bed post tx with nurse call, phone, and tray within reach. Mental Status Patient Orientation: Normal For Age Transfers Functional [place] Measure 0=Not Assessed/NA 4=Minimal Assistance 1=Total Assistance 5=Supervision or Setup 2=Maximal Assistance 6=Modified [place] 3=Moderate Assistance 7=Complete IndependenceIRFPAI Quality Coding Scale 6 Independent with activity with or without an assistive device 5 Patient requires set up or clean up by helper. Patient completes activity by themselves 4 Supervision or touching assist (CGA). [place] provide cues , steadying assist 3 The helper provides less than half the effort to complete the activity 2 The helper provides more than half the effort to complete the activity 1 Dependent. The helper does all the effort to complete an activity 7 Patient refused to complete or attempt activity 9 The patient did not perform the activity before the current illness or injury 88 Not attempted due to Medical conditions or safety concerns Transfers (B, C, W/C) (FIM): 4 Scootin Rollin Supine to/from Sit: 4 Sit to/from Stand: 4 Bed to/from Chair: 4 SBA required for bed mobility. CGA/Della for transfers to ensure safety. Patient needs specific cues for positioning during bed mobility and transfers. Weight Bearing Right Lower Extremity: Right Full Weight Bearing Left Lower Extremity: Left Full Weight Bearing Gait Training Does the Patient Walk?: Yes Gait (FIM): 2 Distance: 60 feet x1, 40 feet x1 Gait Level of Assist: 3 Gait Persons Needed: 1 Gait Assistive Device: Walker Wale Knee immobilizer and AFO on the LLE. Pt requires manual and verbal cues for weight shifting and taking shorter steps with the LLE. Wheelchair Training Does the Pt Use a Wheelchair?: Yes Wheelchair (FIM): 5 Distance: 150 feet x1 Wheelchair Level of Assist: 5 Type of Wheelchair: Manual Exercises Chair to chair transfers to the R and L: 8 to each side NuStep Minutes: 15 NuStep Workload: 4 Treatments Pt performed chair to chair transfers to the L and R, [facility] mobility, LE exercise , and gait training. Assessment Current Status: Fair Progress Pt is able to walk farther with mod A. Pt activity tolerance is improving as he is requiring less breaks in between exercises. PT Short Term Goals Short Term Goals Time Frame: Mar 22, 2017 Gait (FIM): 2 Distance (FIM): 1=up to 49 ft Gait Assistive Device: Walker Wale Wheelchair (FIM): 6 (met) Wheelchair distance (FIM): 3=150 ft Wheelchair Distance: 100 feet x2 PT Group Home Goals Group Home Goals PT Appetizer Packer Goals Time Frame: Apr 05, 2017 Transfers (B,C,W/C) (FIM): 6 Sit to Lying (QC): 6 Lying-Sitting on Side/Bed(QC): 6 Sit to Stand (QC): 6 Rollin Roll Left to Right (QC): 6 Chair/Egu-io-Tpgox Xfer(QC): 6 Car Transfer (QC): 5 Does the Patient Walk: No and Walking Goal IS indicated Gait (FIM): 5 Gait distance (FIM): 3=150 ft Walk 10 feet (QC): 5 Walk 10ft-Uneven Surface(QC): 5 Walk 50ft with 2 Turns (QC): 5 Walk 150 ft (QC): 5 Gait Level of Assist: 5 Gait Assistive Device: Walker Wale Does the Pt use WC or Scooter?: Yes Wheelchair (FIM): 6 Wheelchair distance (FIM): 3=150 ft Wheel 50 feet with 2 turns (QC: 6 Stairs (FIM): 2 # of Steps: 4 1 Step (curb) (QC): 4 4 Steps (QC): 4 12 Steps (QC): 88 Picking up an Object (QC): 88 PT Plan Problem List Problem List: Activity Tolerance, Functional Strength, Safety, Balance, Gait, Transfer, Bed Mobility, ROM Treatment/Plan Treatment Plan: Continue Plan of Care Treatment Plan: Bed Mobility, Education, Functional Activity Curtis, Functional Strength, Group Therapy, Gait, Safety, Therapeutic Exercise, Transfers Treatment Duration: Apr 05, 2017 Frequency: At least 5 of 7 days/Wk (IRF) Estimated Hrs Per Day: 1.5 hours per day Patient and/or Family Agrees t: Yes Safety Risks/Education Patient Education: Gait Training, Transfer Techniques, Correct Positioning, W/ C Management, Safety Issues Teaching Recipient: Patient Teaching Methods: Demonstration, Discussion Response to Teaching: Reinforcement Needed Time/GCodes Time In: 800 Time Out: 900 Total Billed Treatment Time: 60 Total Billed Treatment 1 visit 15 min GT 15 min EX 30 min MARJ LARSEN PT Mar 31, 2017 10:41
--- NOTE | 2017-03-31 15:00 | Therapy Group Daily Note ---
Therapy Daily Group Note Patient Education Topic Home Safety, Energy Cons, Other List Below (joint protection) Exercises Fine Motor, UE Exercise (hand/wrist) Other/Notes Pt. participated in group PT OT session this date. Pt. came to and from via w/c with min assist. Pt. introduced self and shared where he lives and his favorite flower, lilac. Pts. all participated in decorating cookies for fine motor and coordination activity : frosting the cookies on their individual plate and then sprinkling or pipe frosting decor. Pts all contributed to discussion RE: joint protection and energy conservation, as well home safety. All participated in hand/ wrist exercises. Pt. to room after group , in bed , bal at hand with mod assist. Start Time: 13:00 Stop Time: 14:15 Total Billed Treatment Time: 75 Total Billed Treatment 1,GRP JONG PRIEST FIELD SUPERVISOR Mar 31, 2017 15:00
[2017-03-31 18:43] VITALS: BP 128/79
[2017-03-31] MEDS: ACETAMINOPHEN 325 MG TABLET/CAPLET (TYLENOL) PO PRN (19:56)
[2017-03-31] MEDS: ATORVASTATIN 40 MG (LIPITOR) TABLET PO SCH (20:01)
[2017-04-01 05:32] VITALS: BP 120/72
[2017-04-01] MEDS: GLIMEPIRIDE 2 MG (AMARYL) TAB PO SCH (05:59)
[2017-04-01] MEDS: metFORMIN 500 MG (GLUCOPHAGE) TAB PO SCH ×2 (06:00→16:25)
--- NOTE | 2017-04-01 07:37 | Occupational Ther Daily Note ---
OT Current Status-Daily Note Subjective Pt alert, sitting in w/c. Pt agreed to therapy. No c/o pain at this time. Mental Status/Objective Patient Orientation: Person, Place, Time, Situation Functional [place] Measure 0=Not Assessed/NA 4=Minimal Assistance 1=Total Assistance 5=Supervision or Setup 2=Maximal Assistance 6=Modified [place] 3=Moderate Assistance 7=Complete [place] ADL-Treatment Functional [place] Measure 0=Not Assessed/NA 4=Minimal Assistance 1=Total Assistance 5=Supervision or Setup 2=Maximal Assistance 6=Modified [place] 3=Moderate Assistance 7=Complete IndependenceIRFPAI Quality Coding Scale 6 Independent with activity with or without an assistive device 5 Patient requires set up or clean up by helper. Patient completes activity by themselves 4 Supervision or touching assist (CGA). [place] provide cues , steadying assist 3 The helper provides less than half the effort to complete the activity 2 The helper provides more than half the effort to complete the activity 1 Dependent. The helper does all the effort to complete an activity 7 Patient refused to complete or attempt activity 9 The patient did not perform the activity before the current illness or injury 88 Not attempted due to Medical conditions or safety concerns Other Treatment Pt completed grooming and toileting prior to OT session. Pt maneuvered w/c into therapy gym and transferred to therapy mat with CGA, toward R side. Pt required CGA to go from sitting to supine for positioning. Pt completed AAROM with L UE. No active scapular movement noted during shldr ROM. Pt is demonstrating progress with elbow flexion/ext, sup/pron, wrist flex/ext and finger flex/ext and shldr abd/add (without active scapular motion). Pt then went from supine to sitting edge of mat with min A. SBA for safety, pt was able to complete leaning side to side and right self. Taping to L shldr to decrease subluxation completed. Pt then maneuvered w/c back to [facility] area after therapy. All needs met. OT Short Term Goals Short Term Goals Time Frame: Mar 22, 2017 Grooming(FIM): 5 Bathing(FIM): 4 Toileting(FIM): 3 Toilet/Commode Transfer(FIM): 4 Additional Short Term Goals: 2-Verbalize Understanding, 3-ImproveStrength/Curtis 1=Demonstrate adherence to instructed precautions during ADL tasks. 2=Patient will verbalize/demonstrate understanding of assistive devices/ modifications for ADL. 3=Patient will improve strength/tolerance for activity to enable patient to perform ADL's. OT Chief Medical Technologist Goals [facility] Goals Time Frame: Apr 05, 2017 Eating (FIM): 6 Eating (QC): 6 Groomin Oral Hygiene (QC): 6 Bathing(FIM): 5 Shower/Bathe Self (QC): 5 Upper Body Dressing(FIM): 6 Upper Body Dressing (QC): 6 Lower Body Dressing(FIM): 5 Lower Body Dressing (QC): 5 On/Off Footwear (QC): 5 Toileting(FIM): 5 Toileting Hygiene (QC): 5 Toilet/Commode Transfer(FIM): 5 Toilet/Commode Transfer (QC): 5 Shower Transfer(FIM): 5 Additional Goals: 2-Verbalize Understanding, 3-ImproveStrength/Curtis 1=Demonstrate adherence to instructed precautions during ADL tasks. 2=Patient will verbalize/demonstrate understanding of assistive devices/ modifications for ADL. 3=Patient will improve strength/tolerance for activity to enable patient to perform ADL's. OT Education/Plan Problem List/Assessment Pt would benefit from skilled OT to increase his independence in basic self care and to decrease caregiver burden. Discharge Recommendations Plan/Recommendations: Continue POC Treatment Plan/Plan of Care Patient would benefit from OT for education, treatment and training to promote independence in ADL's, mobility, safety and/or upper extremity function for ADL' s. Plan of Care: ADL Retraining, Functional Mobility, Group Exercise/Act as Ind ( educaiton, exercise, activity tolerance, functional acitivites, socialization), UE Funct Exercise/Act, UE Neuromus Re-Ed/Coord, W/C Management Training Treatment Duration: Apr 05, 2017 Frequency: At least 5 of 7 days/Wk (IRF) Estimated Hrs Per Day: 1.5 hours per day Agreement: Yes Rehab Potential: Good Time/GCodes Start Time: 06:55 Stop Time: 07:55 Total Time Billed (hr/min): 60 Billed Treatment Time 1 visit-NM 4 (60 min) AARTI STARR Apr 01, 2017 07:36
--- NOTE | 2017-04-01 08:23 | Progress Note (SOAP) ---
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 Hypertension. Hyperlipidemia. Tobacco usage. Abdominal aortic aneurysm. GERD . 03/10/17. 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 Hypertension. Hyperlipidemia. Tobacco usage. Patient working hard and moving left arm today. . 03/11/17. 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 Hypertension. Hyperlipidemia. Tobacco usage. Patient working hard and improving. . 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 Hypertension. Hyperlipidemia Tobacco usage. Patient stomach doing better . 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 nauseous. Hypertension. Hyperlipidemia. Tobacco usage. . 03/16/17. 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 Hypertension. Constipation. Hyperlipidemia. Tobacco usage. . 03/17/17. 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 Hypertension. Constipation. Hyperlipidemia. Patient seems positive. Patient working hard . 03/18/17. 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 Hypertension. Did not have a bowel movement today. Hyperlipidemia. Patient working on walking. . 03/19/17. 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 Hypertension. Hyperlipidemia. Constipation resolved. . 03/22/17. 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 Hypertension. Hyperlipidemia. Patient doing better with left upper extremity and left lower extremity. . 03/23. 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 Hypertension.. patient doing better with upper extremity than lower extremity and left. . 03/24/17. 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 Hypertension. Patient improving with left upper extremity. . 03/25/17. 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 Hypertension. Patient doing better with his left upper extremity. . 03/26/17. 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 Hypertension. Left lower extremity having problems. . 03/29/17. 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 Hypertension. Patient still needs work. . 03/30/17. 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 Hypertension. Diabetes under good control. Patient making slow progress but improving. . 03/31/17. 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 Hypertension good control. Diabetes good. For patient to walk needs somebody to help hold him up. . 04/01/17. 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 Patient has trouble getting around on the left side when he walks. Patient unstable Clinical Quality Measures DVT/VTE Risk/Contraindication: Risk Factor Score Per Nursin RFS Level Per Nursing on Admit: 4+=Very High JAIME ROBERSON DO Apr 01, 2017 08:23
--- NOTE | 2017-04-01 08:54 | PM & R (SOAP) Progress Note ---
Subjective Time Seen by Provider: 08:10 Subjective/Events-last exam Patient was seen on unit this AM Patient Min assist for transfers Review of Systems Neurological: Weakness Objective Exam Last Set of Vital Signs Vital Signs Date Time Temp Pulse Resp B/P (MAP) Pulse Ox O2 Delivery O2 Flow Rate FiO2 04/01/17 05:32 97.8 76 17 120/72 (88) 98 Room Air Capillary Refill : Less Than 3 Seconds I&O Intake and Output 04/01/17 00:00 Intake Total 1900 ml Balance 1900 ml Intake Oral 1900 ml # Voids 7 # Bowel Movements 1 General: Alert, Oriented X3, Cooperative, No Acute Distress HEENT: Atraumatic, PERRLA, EOMI, Mucous Memb Moist/[place] Neck: Supple, No JVD Lungs: Clear to Auscultation Heart: Regular Rate Abdomen: Normal Bowel Sounds, Soft, No Tenderness Extremities: No Edema Neuro: Other (Left LE flaccid with trace return LUE) Psych/Mental Status: Mental Status NL Results Lab Laboratory Tests 03/29/17 17:31: Glucometer 94 03/30/17 05:02: Glucometer 114H 03/30/17 16:06: Glucometer 114H 03/31/17 05:01: Glucometer 129H 03/31/17 16:05: Glucometer 104 04/01/17 04:39: Glucometer 120H Assessment/Plan Assessment Rt MCA CVA with Left HP HTN controlled DM2 controlled Tobacco abuse declines Patch 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 GERD without espohagitis AAA without rupture Mild nausea-Zofran ordered prn-improved Constipation meds to be adjusted as needed-improved had BM Plan Continue PT/OT ST has assessed and signed off Decreased Accucheks as per above-stable Patient has 2 sons and a daughter in this area to help out upon discharge Zofran for nausea-improved Current meds reviewed Accucheks noted Appreciate ABD Xray results Adjust meds for constipation as needed Team Conference held yesterday-See report for full functional update and POC and [facility] (DAY PASS) this weekend with probable discharge to home with family and HHC next week NNEKA MARTIN MD Apr 01, 2017 08:54
--- NOTE | 2017-04-01 09:00 | Physical Therapy Daily Note ---
PT Daily Note-Current Subjective Pt is sitting in [facility] in visiting area pre tx with no complaints of pain. Pt agrees to PT. Pain Numeric Pain Scale: 0-No Pain Location: No Pain Reported Appearance Pt is laying in bed post tx with nurse call within reach. Mental Status Patient Orientation: Normal For Age Transfers Functional [place] Measure 0=Not Assessed/NA 4=Minimal Assistance 1=Total Assistance 5=Supervision or Setup 2=Maximal Assistance 6=Modified [place] 3=Moderate Assistance 7=Complete IndependenceIRFPAI Quality Coding Scale 6 Independent with activity with or without an assistive device 5 Patient requires set up or clean up by helper. Patient completes activity by themselves 4 Supervision or touching assist (CGA). [place] provide cues , steadying assist 3 The helper provides less than half the effort to complete the activity 2 The helper provides more than half the effort to complete the activity 1 Dependent. The helper does all the effort to complete an activity 7 Patient refused to complete or attempt activity 9 The patient did not perform the activity before the current illness or injury 88 Not attempted due to Medical conditions or safety concerns Transfers (B, C, W/C) (FIM): 4 Scootin Rollin Supine to/from Sit: 5 Sit to/from Stand: 4 Bed to/from Chair: 4 Pt requires SBA for bed mobility and CGA for sit to stand and bed to chair transfer to the right but min assist to the left. Weight Bearing Right Lower Extremity: Right Full Weight Bearing Left Lower Extremity: Left Full Weight Bearing Gait Training Does the Patient Walk?: Yes Gait (FIM): 2 Distance: 70 feet x1, 50 feet x1, 20 feet x1 Gait Level of Assist: 4 Gait Persons Needed: 1 Gait Assistive Device: Walker Wale Pt wears knee immobilizer and AFO on the LLE. Pt is unsteady today and requires verbal cues to watch where is go putting the wale walker and leave space for his feet. Wheelchair Training Does the Pt Use a Wheelchair?: Yes Wheelchair (FIM): 2 Distance: 100 feet x1 Wheelchair Level of Assist: 5 Type of Wheelchair: Manual Exercises Supine Ex: Bridging (12 x2 BLE), Rolling (1 x1 to each side), Hip abd/add (12 x2 BLE) Manually assisted LLE extension in supine 10 x3 LLE Treatments Pt performed gait training, bed mobility, functional activity, LE exercise, and [facility] mobility. Assessment Current Status: Fair Progress Pt has low affect today possibly due to understanding that he will be staying here for another week. Pt unsteadiness may be due to rushing from bedroom to therapy gym during ambulation. Pt bed mobility is becoming more independent without need for rails or verbal cues. PT Short Term Goals Short Term Goals Time Frame: Mar 22, 2017 Gait (FIM): 2 Distance (FIM): 1=up to 49 ft Gait Assistive Device: Walker Wale Wheelchair (FIM): 6 (met) Wheelchair distance (FIM): 3=150 ft Wheelchair Distance: 150 feet x1 PT Long-Term Goals Roentgenologist Goals PT Long-Term Goals Time Frame: Apr 05, 2017 Transfers (B,C,W/C) (FIM): 6 Sit to Lying (QC): 6 Lying-Sitting on Side/Bed(QC): 6 Sit to Stand (QC): 6 Rollin Roll Left to Right (QC): 6 Chair/Oul-yc-Sgtvh Xfer(QC): 6 Car Transfer (QC): 5 Does the Patient Walk: No and Walking Goal IS indicated Gait (FIM): 5 Gait distance (FIM): 3=150 ft Walk 10 feet (QC): 5 Walk 10ft-Uneven Surface(QC): 5 Walk 50ft with 2 Turns (QC): 5 Walk 150 ft (QC): 5 Gait Level of Assist: 5 Gait Assistive Device: Walker Wale Does the Pt use WC or Scooter?: Yes Wheelchair (FIM): 6 Wheelchair distance (FIM): 3=150 ft Wheel 50 feet with 2 turns (QC: 6 Stairs (FIM): 2 # of Steps: 4 1 Step (curb) (QC): 4 4 Steps (QC): 4 12 Steps (QC): 88 Picking up an Object (QC): 88 PT Plan Problem List Problem List: Activity Tolerance, Functional Strength, Safety, Balance, Gait, Transfer, Bed Mobility, ROM Treatment/Plan Treatment Plan: Continue Plan of Care Treatment Plan: Bed Mobility, Education, Functional Activity Curtis, Functional Strength, Group Therapy, Gait, Safety, Therapeutic Exercise, Transfers Treatment Duration: Apr 05, 2017 Frequency: At least 5 of 7 days/Wk (IRF) Estimated Hrs Per Day: 1.5 hours per day Patient and/or Family Agrees t: Yes Safety Risks/Education Patient Education: Gait Training, Transfer Techniques, Correct Positioning, W/ C Management, Safety Issues Teaching Recipient: Patient Teaching Methods: Demonstration, Discussion Response to Teaching: Reinforcement Needed Time/GCodes Time In: 800 Time Out: 900 Total Billed Treatment Time: 60 Total Billed Treatment 1 visit 25 min GT 15 min EX 20 min MARJ LARSEN PT Apr 01, 2017 09:00
[2017-04-01] MEDS: CLOPIDOGREL 75 MG (PLAVIX) TABLET PO SCH (09:28)
[2017-04-01] MEDS: lisINopril 10 MG (PRINIVIL) TABLET PO SCH (09:28)
--- NOTE | 2017-04-01 11:53 | Occupational Ther Daily Note ---
OT Current Status-Daily Note Subjective Pt resting in bed. Pt agreed to therapy. No c/o pain at this time. Mental Status/Objective Patient Orientation: Person, Place, Time, Situation Functional [place] Measure 0=Not Assessed/NA 4=Minimal Assistance 1=Total Assistance 5=Supervision or Setup 2=Maximal Assistance 6=Modified [place] 3=Moderate Assistance 7=Complete [place] ADL-Treatment Functional [place] Measure 0=Not Assessed/NA 4=Minimal Assistance 1=Total Assistance 5=Supervision or Setup 2=Maximal Assistance 6=Modified [place] 3=Moderate Assistance 7=Complete IndependenceIRFPAI Quality Coding Scale 6 Independent with activity with or without an assistive device 5 Patient requires set up or clean up by helper. Patient completes activity by themselves 4 Supervision or touching assist (CGA). [place] provide cues , steadying assist 3 The helper provides less than half the effort to complete the activity 2 The helper provides more than half the effort to complete the activity 1 Dependent. The helper does all the effort to complete an activity 7 Patient refused to complete or attempt activity 9 The patient did not perform the activity before the current illness or injury 88 Not attempted due to Medical conditions or safety concerns Other Treatment Pt worked on w/c mobility throughout hospital, over rough terrain and incline/ decline surfaces. Pt required assist to maneuver w/c in straight line with incline/decline though propelled by self. Pt required min A for rough terrain. After therapy, pt sitting in [facility] area. All needs met in room. OT Short Term Goals Short Term Goals Time Frame: Mar 22, 2017 Grooming(FIM): 5 Bathing(FIM): 4 Toileting(FIM): 3 Toilet/Commode Transfer(FIM): 4 Additional Short Term Goals: 2-Verbalize Understanding, 3-ImproveStrength/Curtis 1=Demonstrate adherence to instructed precautions during ADL tasks. 2=Patient will verbalize/demonstrate understanding of assistive devices/ modifications for ADL. 3=Patient will improve strength/tolerance for activity to enable patient to perform ADL's. OT Forwarder Operator Goals Forwarder Operator Goals Time Frame: Apr 05, 2017 Eating (FIM): 6 Eating (QC): 6 Groomin Oral Hygiene (QC): 6 Bathing(FIM): 5 Shower/Bathe Self (QC): 5 Upper Body Dressing(FIM): 6 Upper Body Dressing (QC): 6 Lower Body Dressing(FIM): 5 Lower Body Dressing (QC): 5 On/Off Footwear (QC): 5 Toileting(FIM): 5 Toileting Hygiene (QC): 5 Toilet/Commode Transfer(FIM): 5 Toilet/Commode Transfer (QC): 5 Shower Transfer(FIM): 5 Additional Goals: 2-Verbalize Understanding, 3-ImproveStrength/Curtis 1=Demonstrate adherence to instructed precautions during ADL tasks. 2=Patient will verbalize/demonstrate understanding of assistive devices/ modifications for ADL. 3=Patient will improve strength/tolerance for activity to enable patient to perform ADL's. OT Education/Plan Problem List/Assessment Pt would benefit from skilled OT to increase his independence in basic self care and to decrease caregiver burden. Discharge Recommendations Plan/Recommendations: Continue POC Treatment Plan/Plan of Care Patient would benefit from OT for education, treatment and training to promote independence in ADL's, mobility, safety and/or upper extremity function for ADL' s. Plan of Care: ADL Retraining, Functional Mobility, Group Exercise/Act as Ind ( educaiton, exercise, activity tolerance, functional acitivites, socialization), UE Funct Exercise/Act, UE Neuromus Re-Ed/Coord, W/C Management Training Treatment Duration: Apr 05, 2017 Frequency: At least 5 of 7 days/Wk (IRF) Estimated Hrs Per Day: 1.5 hours per day Agreement: Yes Rehab Potential: Good Time/GCodes Start Time: 11:30 Stop Time: 12:00 Total Time Billed (hr/min): 30 Billed Treatment Time 1 visit-FA 2 (30 min) AARTI STARR Apr 01, 2017 11:52
--- NOTE | 2017-04-01 14:06 | Physical Therapy Daily Note ---
PT Daily Note-Current Subjective Pt is sitting in [facility] in visiting area pre tx and agrees to PT with no complaints of pain. Pain Numeric Pain Scale: 0-No Pain Location: No Pain Reported Appearance Pt is laying in bed post tx with nurse call, phone, and tray within reach. Mental Status Patient Orientation: Normal For Age Transfers Functional [place] Measure 0=Not Assessed/NA 4=Minimal Assistance 1=Total Assistance 5=Supervision or Setup 2=Maximal Assistance 6=Modified [place] 3=Moderate Assistance 7=Complete IndependenceIRFPAI Quality Coding Scale 6 Independent with activity with or without an assistive device 5 Patient requires set up or clean up by helper. Patient completes activity by themselves 4 Supervision or touching assist (CGA). [place] provide cues , steadying assist 3 The helper provides less than half the effort to complete the activity 2 The helper provides more than half the effort to complete the activity 1 Dependent. The helper does all the effort to complete an activity 7 Patient refused to complete or attempt activity 9 The patient did not perform the activity before the current illness or injury 88 Not attempted due to Medical conditions or safety concerns Transfers (B, C, W/C) (FIM): 4 Sit to/from Stand: 4 Bed to/from Chair: 4 CGA for transfers necessary to ensure safety. Weight Bearing Right Lower Extremity: Right Full Weight Bearing Left Lower Extremity: Left Full Weight Bearing Gait Training Does the Patient Walk?: Yes Wheelchair Training Does the Pt Use a Wheelchair?: Yes Wheelchair (FIM): 5 Distance: 100 feet x2 Wheelchair Level of Assist: 5 Type of Wheelchair: Manual Exercises NuStep Minutes: 15 NuStep Workload: 5 (5 for 7 min, 6 for 4 min, 7 for 4 min) Treatments Pt performed [facility] mobility, LE exercise, and bed mobility. Assessment Current Status: Fair Progress Pt tolerates increasing workload throughout 15 minutes of NuStep. Pt activity tolerance is improving. PT Short Term Goals Short Term Goals Time Frame: Mar 22, 2017 Gait (FIM): 2 Distance (FIM): 1=up to 49 ft Gait Assistive Device: Walker Wale Wheelchair (FIM): 6 (met) Wheelchair distance (FIM): 3=150 ft Wheelchair Distance: 100 feet x1 PT Consulting Actuary Goals Consulting Actuary Goals PT Half-Way Goals Time Frame: Apr 05, 2017 Transfers (B,C,W/C) (FIM): 6 Sit to Lying (QC): 6 Lying-Sitting on Side/Bed(QC): 6 Sit to Stand (QC): 6 Rollin Roll Left to Right (QC): 6 Chair/Igh-bt-[place] Xfer(QC): 6 Car Transfer (QC): 5 Does the Patient Walk: No and Walking Goal IS indicated Gait (FIM): 5 Gait distance (FIM): 3=150 ft Walk 10 feet (QC): 5 Walk 10ft-Uneven Surface(QC): 5 Walk 50ft with 2 Turns (QC): 5 Walk 150 ft (QC): 5 Gait Level of Assist: 5 Gait Assistive Device: Walker Wale Does the Pt use WC or Scooter?: Yes Wheelchair (FIM): 6 Wheelchair distance (FIM): 3=150 ft Wheel 50 feet with 2 turns (QC: 6 Stairs (FIM): 2 # of Steps: 4 1 Step (curb) (QC): 4 4 Steps (QC): 4 12 Steps (QC): 88 Picking up an Object (QC): 88 PT Plan Problem List Problem List: Activity Tolerance, Functional Strength, Safety, Balance, Gait, Transfer, Bed Mobility, ROM Treatment/Plan Treatment Plan: Continue Plan of Care Treatment Plan: Bed Mobility, Education, Functional Activity [place], Functional Strength, Group Therapy, Gait, Safety, Therapeutic Exercise, Transfers Treatment Duration: Apr 05, 2017 Frequency: At least 5 of 7 days/Wk (IRF) Estimated Hrs Per Day: 1.5 hours per day Patient and/or Family Agrees t: Yes Safety Risks/Education Patient Education: Transfer Techniques, Correct Positioning, W/C Management, Safety Issues Teaching Recipient: Patient Teaching Methods: Demonstration, Discussion Response to Teaching: Reinforcement Needed Time/GCodes Time In: 1300 Time Out: 1330 Total Billed Treatment Time: 30 Total Billed Treatment 1 visit 15 min EX 15 min FA AARTI TARIQ PT Apr 01, 2017 14:06
[2017-04-01 17:58] VITALS: BP 125/79
[2017-04-01] MEDS: ATORVASTATIN 40 MG (LIPITOR) TABLET PO SCH (20:07)
[2017-04-02 05:03] VITALS: BP 119/79
[2017-04-02] MEDS: metFORMIN 500 MG (GLUCOPHAGE) TAB PO SCH ×2 (06:06→17:30)
[2017-04-02] MEDS: GLIMEPIRIDE 2 MG (AMARYL) TAB PO SCH (06:06)
[2017-04-02] MEDS: CLOPIDOGREL 75 MG (PLAVIX) TABLET PO SCH (07:30)
[2017-04-02] MEDS: lisINopril 10 MG (PRINIVIL) TABLET PO SCH (07:30)
--- NOTE | 2017-04-02 07:54 | Occupational Ther Daily Note ---
OT Current Status-Daily Note Subjective Pt alert, sitting in w/c. Pt agreed to therapy. No c/o pain at this time. Mental Status/Objective Patient Orientation: Person, Place, Time, Situation Functional [place] Measure 0=Not Assessed/NA 4=Minimal Assistance 1=Total Assistance 5=Supervision or Setup 2=Maximal Assistance 6=Modified [place] 3=Moderate Assistance 7=Complete [place] ADL-Treatment Functional [place] Measure 0=Not Assessed/NA 4=Minimal Assistance 1=Total Assistance 5=Supervision or Setup 2=Maximal Assistance 6=Modified [place] 3=Moderate Assistance 7=Complete IndependenceIRFPAI Quality Coding Scale 6 Independent with activity with or without an assistive device 5 Patient requires set up or clean up by helper. Patient completes activity by themselves 4 Supervision or touching assist (CGA). [place] provide cues , steadying assist 3 The helper provides less than half the effort to complete the activity 2 The helper provides more than half the effort to complete the activity 1 Dependent. The helper does all the effort to complete an activity 7 Patient refused to complete or attempt activity 9 The patient did not perform the activity before the current illness or injury 88 Not attempted due to Medical conditions or safety concerns Grooming (FIM): 6 (Sitting at sink in w/c, pt is able to complete all grooming. ) Oral Hygiene (QC): 6 Bathing (FIM): 4 (Supervision using grabbar, shower bench, hand held shower and long handle pt is able to complete most of bathing/drying in seated position. Pt is able to pull to stand and balance self while assist to cleanse buttocks.) Shower/Bathe Self (QC): 3 Upper Body (FIM): 6 (Pt retrieves clothing and don/doffs by self.) Upper Body Dressing (QC): 6 Lower Body Dressing (FIM): 4 (Retrieves clothing at w/c level and is able to don/doff over feet sitting in w/c. Pt requires assist to stand when hiking pants over hips.) Lower Body Dressing (QC): 3 On/Off Footwear (QC): 6 Shower Transfer(FIM): 4 (Min A using shower bench, grabbar and w/c.) Other Treatment Pt completed B UE exercises against gravity. Trace scapular movement noted. Pt [facility]. All needs met. OT Short Term Goals Short Term Goals Time Frame: Mar 22, 2017 Grooming(FIM): 5 Bathing(FIM): 4 Toileting(FIM): 3 Toilet/Commode Transfer(FIM): 4 Additional Short Term Goals: 2-Verbalize Understanding, 3-ImproveStrength/Curtis 1=Demonstrate adherence to instructed precautions during ADL tasks. 2=Patient will verbalize/demonstrate understanding of assistive devices/ modifications for ADL. 3=Patient will improve strength/tolerance for activity to enable patient to perform ADL's. OT Assisted Goals Career Information Specialist Goals Time Frame: Apr 05, 2017 Eating (FIM): 6 Eating (QC): 6 Groomin Oral Hygiene (QC): 6 Bathing(FIM): 5 Shower/Bathe Self (QC): 5 Upper Body Dressing(FIM): 6 Upper Body Dressing (QC): 6 Lower Body Dressing(FIM): 5 Lower Body Dressing (QC): 5 On/Off Footwear (QC): 5 Toileting(FIM): 5 Toileting Hygiene (QC): 5 Toilet/Commode Transfer(FIM): 5 Toilet/Commode Transfer (QC): 5 Shower Transfer(FIM): 5 Additional Goals: 2-Verbalize Understanding, 3-ImproveStrength/Curtis 1=Demonstrate adherence to instructed precautions during ADL tasks. 2=Patient will verbalize/demonstrate understanding of assistive devices/ modifications for ADL. 3=Patient will improve strength/tolerance for activity to enable patient to perform ADL's. OT Education/Plan Problem List/Assessment Pt would benefit from skilled OT to increase his independence in basic self care and to decrease caregiver burden. Discharge Recommendations Plan/Recommendations: Continue POC Treatment Plan/Plan of Care Patient would benefit from OT for education, treatment and training to promote independence in ADL's, mobility, safety and/or upper extremity function for ADL' s. Plan of Care: ADL Retraining, Functional Mobility, Group Exercise/Act as Ind ( educaiton, exercise, activity tolerance, functional acitivites, socialization), UE Funct Exercise/Act, UE Neuromus Re-Ed/Coord, W/C Management Training Treatment Duration: Apr 05, 2017 Frequency: At least 5 of 7 days/Wk (IRF) Estimated Hrs Per Day: 1.5 hours per day Agreement: Yes Rehab Potential: Good Time/GCodes Start Time: 07:00 Stop Time: 08:00 Total Time Billed (hr/min): 60 Billed Treatment Time 1 visit-ADL 3 (50 min) NM 1 (10 min) AARTI STARR Apr 02, 2017 07:54
--- NOTE | 2017-04-02 07:56 | Progress Note (SOAP) ---
Subjective Time Seen by Provider: 07:55 Subjective/Events-last exam CVA. Patient improving. Diabetes. Hypertension. Patient trying heart Objective Exam Vital Signs Date Time Temp Pulse Resp B/P (MAP) Pulse Ox O2 Delivery O2 Flow Rate FiO2 04/02/17 05:03 97.9 67 16 119/79 (92) 94 Room Air 04/01/17 20:10 Room Air 04/01/17 17:58 96.0 79 20 125/79 (94) 94 Room Air 04/01/17 09:00 Room Air I & O 04/02/17 07:00 Intake Total 1280 ml Balance 1280 ml Capillary Refill : Less Than 3 Seconds General Appearance: No Apparent Distress HEENT: Normal ENT Inspection Neck: Full Range of Motion, Normal Inspection Respiratory: No Accessory Muscle Use, No Respiratory Distress Cardiovascular: Regular Rate, Rhythm, No Murmur Results Lab Laboratory Tests 04/01/17 16:15: Glucometer 86 04/02/17 04:30: Glucometer 112H Assessment/Plan Assessment/Plan Assess & Plan/Chief Complaint 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 Hypertension. Hyperlipidemia. Tobacco usage. Abdominal aortic aneurysm. GERD . 03/10/17. 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 Hypertension. Hyperlipidemia. Tobacco usage. Patient working hard and moving left arm today. . 03/11/17. 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 Hypertension. Hyperlipidemia. Tobacco usage. Patient working hard and improving. . 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 Hypertension. Hyperlipidemia Tobacco usage. Patient stomach doing better . 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 nauseous. Hypertension. Hyperlipidemia. Tobacco usage. . 03/16/17. 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 Hypertension. Constipation. Hyperlipidemia. Tobacco usage. . 03/17/17. 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 Hypertension. Constipation. Hyperlipidemia. Patient seems positive. Patient working hard . 03/18/17. 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 Hypertension. Did not have a bowel movement today. Hyperlipidemia. Patient working on walking. . 03/19/17. 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 Hypertension. Hyperlipidemia. Constipation resolved. . 03/22/17. 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 Hypertension. Hyperlipidemia. Patient doing better with left upper extremity and left lower extremity. . 03/23. 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 Hypertension.. patient doing better with upper extremity than lower extremity and left. . 03/24/17. 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 Hypertension. Patient improving with left upper extremity. . 03/25/17. 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 Hypertension. Patient doing better with his left upper extremity. . 03/26/17. 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 Hypertension. Left lower extremity having problems. . 03/29/17. 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 Hypertension. Patient still needs work. . 03/30/17. 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 Hypertension. Diabetes under good control. Patient making slow progress but improving. . 03/31/17. 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 Hypertension good control. Diabetes good. For patient to walk needs somebody to help hold him up. . 04/01/17. 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 Patient has trouble getting around on the left side when he walks. Patient unstable. . 04/02/17. 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 Patient doing good in wheelchair. Patient unstable when he walks area Patient's left upper extremity doing better Clinical Quality Measures DVT/VTE Risk/Contraindication: Risk Factor Score Per Nursin RFS Level Per Nursing on Admit: 4+=Very High JAIME ROBERSON DO Apr 02, 2017 07:56
--- NOTE | 2017-04-02 09:01 | Physical Therapy Daily Note ---
PT Daily Note-Current Subjective Pt is sitting in [facility] in room pre tx with no complaints of pain and agrees to PT. Pain Numeric Pain Scale: 0-No Pain Location: No Pain Reported Appearance Pt is laying in bed post tx with nurse call, phone, and tray within reach. Mental Status Patient Orientation: Normal For Age Transfers Functional [place] Measure 0=Not Assessed/NA 4=Minimal Assistance 1=Total Assistance 5=Supervision or Setup 2=Maximal Assistance 6=Modified [place] 3=Moderate Assistance 7=Complete IndependenceIRFPAI Quality Coding Scale 6 Independent with activity with or without an assistive device 5 Patient requires set up or clean up by helper. Patient completes activity by themselves 4 Supervision or touching assist (CGA). [place] provide cues , steadying assist 3 The helper provides less than half the effort to complete the activity 2 The helper provides more than half the effort to complete the activity 1 Dependent. The helper does all the effort to complete an activity 7 Patient refused to complete or attempt activity 9 The patient did not perform the activity before the current illness or injury 88 Not attempted due to Medical conditions or safety concerns Transfers (B, C, W/C) (FIM): 4 Scootin Rollin Supine to/from Sit: 4 Sit to/from Stand: 4 Bed to/from Chair: 4 CGA required for sit to stand to the right and bed to chair transfer. Min A and skilled verbal instruction required for bed mobility. Weight Bearing Right Lower Extremity: Right Full Weight Bearing Left Lower Extremity: Left Full Weight Bearing Gait Training Does the Patient Walk?: Yes Gait (FIM): 4 Distance: 150 feet x1, 75 feet x1 Gait Level of Assist: 4 Gait Persons Needed: 1 Gait Assistive Device: Walker Wale Knee immobilizer and AFO used on the LLE. Pt is more steady during ambulation today and requires verbal cues to decrease swing distance of the LLE. Wheelchair Training Does the Pt Use a Wheelchair?: Yes Wheelchair (FIM): 5 Distance: 150' Wheelchair Level of Assist: 5 Type of Wheelchair: Manual Exercises Supine Ex: Bridging (12 x2 ), Rolling (2 x2 to both sides), Hip abd/add (20 x2 BLE) Supine to sit transfer: 2x1 to each side Treatments Pt performed gait training, bed mobility, functional activity, and [facility] mobility. Assessment Current Status: Fair Progress Pt is now able to ambulate for 150 feet until a sitting break is required. Pt requires verbal and manual cues for weight shifts. Pt is performing bed mobility better requiring less verbal cues for guidance. PT Short Term Goals Short Term Goals Time Frame: Mar 22, 2017 Gait (FIM): 2 Distance (FIM): 1=up to 49 ft Gait Assistive Device: Walker Wale Wheelchair (FIM): 6 (met) Wheelchair distance (FIM): 3=150 ft Wheelchair Distance: 100 feet x2 PT Residential Goals Residential Goals PT Residential Goals Time Frame: Apr 05, 2017 Transfers (B,C,W/C) (FIM): 6 Sit to Lying (QC): 6 Lying-Sitting on Side/Bed(QC): 6 Sit to Stand (QC): 6 Rollin Roll Left to Right (QC): 6 Chair/Qbj-sr-Hagnt Xfer(QC): 6 Car Transfer (QC): 5 Does the Patient Walk: No and Walking Goal IS indicated Gait (FIM): 5 Gait distance (FIM): 3=150 ft Walk 10 feet (QC): 5 Walk 10ft-Uneven Surface(QC): 5 Walk 50ft with 2 Turns (QC): 5 Walk 150 ft (QC): 5 Gait Level of Assist: 5 Gait Assistive Device: Walker Wale Does the Pt use WC or Scooter?: Yes Wheelchair (FIM): 6 Wheelchair distance (FIM): 3=150 ft Wheel 50 feet with 2 turns (QC: 6 Stairs (FIM): 2 # of Steps: 4 1 Step (curb) (QC): 4 4 Steps (QC): 4 12 Steps (QC): 88 Picking up an Object (QC): 88 PT Plan Problem List Problem List: Activity Tolerance, Functional Strength, Safety, Balance, Gait, Transfer, Bed Mobility, ROM Treatment/Plan Treatment Plan: Continue Plan of Care Treatment Plan: Bed Mobility, Education, Functional Activity Curtis, Functional Strength, Group Therapy, Gait, Safety, Therapeutic Exercise, Transfers Treatment Duration: Apr 05, 2017 Frequency: At least 5 of 7 days/Wk (IRF) Estimated Hrs Per Day: 1.5 hours per day Patient and/or Family Agrees t: Yes Safety Risks/Education Patient Education: Gait Training, Transfer Techniques, Correct Positioning, W/ C Management, Safety Issues Teaching Recipient: Patient Teaching Methods: Demonstration, Discussion Response to Teaching: Reinforcement Needed Time/GCodes Time In: 800 Time Out: 900 Total Billed Treatment Time: 60 Total Billed Treatment 1 visit 30 min GT 15 min FA 15' EX MARJ FARIA PT Apr 02, 2017 09:01
--- NOTE | 2017-04-02 09:36 | PM & R (SOAP) Progress Note ---
Subjective Time Seen by Provider: 08:15 Subjective/Events-last exam Patient was seen on unit this AM Patient min assist for transfers Patient reports that supper pass with son went well last evening Objective Exam Last Set of Vital Signs Vital Signs Date Time Temp Pulse Resp B/P (MAP) Pulse Ox O2 Delivery O2 Flow Rate FiO2 04/02/17 05:03 97.9 67 16 119/79 (92) 94 Room Air Capillary Refill : Less Than 3 Seconds I&O Intake and Output 04/02/17 00:00 Intake Total 1200 ml Balance 1200 ml Intake Oral 1200 ml # Voids 5 General: Alert, Oriented X3, Cooperative, No Acute Distress HEENT: Atraumatic, PERRLA, EOMI, Mucous Memb Moist/[place] Neck: Supple, No JVD Lungs: Clear to Auscultation Heart: Regular Rate Abdomen: Normal Bowel Sounds, Soft, No Tenderness Extremities: No Edema Neuro: Other (Left LE flaccid with trace return LUE) Psych/Mental Status: Mental Status NL Results Lab Laboratory Tests 03/30/17 16:06: Glucometer 114H 03/31/17 05:01: Glucometer 129H 03/31/17 16:05: Glucometer 104 04/01/17 04:39: Glucometer 120H 04/01/17 16:15: Glucometer 86 04/02/17 04:30: Glucometer 112H Assessment/Plan Assessment Rt MCA CVA with Left HP HTN controlled DM2 controlled Tobacco abuse declines Patch 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 GERD without espohagitis AAA without rupture Mild nausea-Zofran ordered prn-improved Constipation meds to be adjusted as needed-improved had BM Plan Continue PT/OT ST has assessed and signed off Decreased Accucheks as per above-stable Patient has 2 sons and a daughter in this area to help out upon discharge Zofran for nausea-improved Current meds reviewed Accucheks noted Appreciate ABD Xray results Adjust meds for constipation as needed Team Conference held 03-31-17-See report for full functional update and POC and [facility] (DAY PASS) this weekend with probable discharge to home with family and HHC next week See orders. NNEKA MARTIN MD Apr 02, 2017 09:35
--- NOTE | 2017-04-02 12:46 | Occupational Ther Daily Note ---
OT Current Status-Daily Note Subjective Pt alert, lying in bed. Pt agreed to therapy. No c/o pain. Mental Status/Objective Patient Orientation: Person, Place, Time, Situation Functional [place] Measure 0=Not Assessed/NA 4=Minimal Assistance 1=Total Assistance 5=Supervision or Setup 2=Maximal Assistance 6=Modified [place] 3=Moderate Assistance 7=Complete [place] ADL-Treatment Functional [place] Measure 0=Not Assessed/NA 4=Minimal Assistance 1=Total Assistance 5=Supervision or Setup 2=Maximal Assistance 6=Modified [place] 3=Moderate Assistance 7=Complete IndependenceIRFPAI Quality Coding Scale 6 Independent with activity with or without an assistive device 5 Patient requires set up or clean up by helper. Patient completes activity by themselves 4 Supervision or touching assist (CGA). [place] provide cues , steadying assist 3 The helper provides less than half the effort to complete the activity 2 The helper provides more than half the effort to complete the activity 1 Dependent. The helper does all the effort to complete an activity 7 Patient refused to complete or attempt activity 9 The patient did not perform the activity before the current illness or injury 88 Not attempted due to Medical conditions or safety concerns Other Treatment Pt completed UE dowel paige exercises in supine. Pt was able to complete shldr ext/flex with CGA 2 sets 10 reps. Bicep curls 3 sets 10 reps. Chest press 3 sets 10 reps. Pt is progressing on increased AAROM movement with L UE. After therapy, pt lying in bed with call light/phone in reach. all needs met in room. OT Short Term Goals Short Term Goals Time Frame: Mar 22, 2017 Grooming(FIM): 5 Bathing(FIM): 4 Toileting(FIM): 3 Toilet/Commode Transfer(FIM): 4 Additional Short Term Goals: 2-Verbalize Understanding, 3-ImproveStrength/Curtis 1=Demonstrate adherence to instructed precautions during ADL tasks. 2=Patient will verbalize/demonstrate understanding of assistive devices/ modifications for ADL. 3=Patient will improve strength/tolerance for activity to enable patient to perform ADL's. OT Refrigeration Systems Installer Goals Refrigeration Systems Installer Goals Time Frame: Apr 05, 2017 Eating (FIM): 6 Eating (QC): 6 Groomin Oral Hygiene (QC): 6 Bathing(FIM): 5 Shower/Bathe Self (QC): 5 Upper Body Dressing(FIM): 6 Upper Body Dressing (QC): 6 Lower Body Dressing(FIM): 5 Lower Body Dressing (QC): 5 On/Off Footwear (QC): 5 Toileting(FIM): 5 Toileting Hygiene (QC): 5 Toilet/Commode Transfer(FIM): 5 Toilet/Commode Transfer (QC): 5 Shower Transfer(FIM): 5 Additional Goals: 2-Verbalize Understanding, 3-ImproveStrength/Curtis 1=Demonstrate adherence to instructed precautions during ADL tasks. 2=Patient will verbalize/demonstrate understanding of assistive devices/ modifications for ADL. 3=Patient will improve strength/tolerance for activity to enable patient to perform ADL's. OT Education/Plan Problem List/Assessment Pt would benefit from skilled OT to increase his independence in basic self care and to decrease caregiver burden. Discharge Recommendations Plan/Recommendations: Continue POC Treatment Plan/Plan of Care Patient would benefit from OT for education, treatment and training to promote independence in ADL's, mobility, safety and/or upper extremity function for ADL' s. Plan of Care: ADL Retraining, Functional Mobility, Group Exercise/Act as Ind ( educaiton, exercise, activity tolerance, functional acitivites, socialization), UE Funct Exercise/Act, UE Neuromus Re-Ed/Coord, W/C Management Training Treatment Duration: Apr 05, 2017 Frequency: At least 5 of 7 days/Wk (IRF) Estimated Hrs Per Day: 1.5 hours per day Agreement: Yes Rehab Potential: Good Time/GCodes Start Time: 11:30 Stop Time: 12:00 Total Time Billed (hr/min): 30 Billed Treatment Time 1 visit-EX 2 (30 min) AARTI STARR Apr 02, 2017 12:46
--- NOTE | 2017-04-02 15:38 | Therapy Group Daily Note ---
Therapy Daily Group Note Patient Education Topic Other List Below (memory) Exercises LE Seated Exercise, UE Exercise Other/Notes Pt maneuvered w/c to [facility] for OT/PT group. Group consisted of introductions (name, childhood home, favorite), socialization, memory task (2, purple, ferrets), memory activity, memory education/strategies and pt led UE/LE seated exercises. Pt appropriately introduced self and actively listened to peer introductions. Pt was able to participate well during memory activities and tasks. Pt led one exercises and was able to complete other exercises with minimal difficulty. After group, pt maneuvered w/c back to room. Call light/ phone in reach. All needs met in room. Start Time: 13:00 Stop Time: 14:20 Total Billed Treatment Time: 80 Total Billed Treatment 1-GRP AARTI STARR Apr 02, 2017 15:38
[2017-04-02] MEDS: ACETAMINOPHEN 325 MG TABLET/CAPLET (TYLENOL) PO PRN (18:23)
[2017-04-02 18:55] VITALS: BP 118/77
[2017-04-02] MEDS: ATORVASTATIN 40 MG (LIPITOR) TABLET PO SCH (20:23)
[2017-04-03 04:15] VITALS: BP 107/74
[2017-04-03] MEDS: metFORMIN 500 MG (GLUCOPHAGE) TAB PO SCH ×2 (06:13→19:54)
[2017-04-03] MEDS: GLIMEPIRIDE 2 MG (AMARYL) TAB PO SCH (06:13)
[2017-04-03] MEDS: lisINopril 10 MG (PRINIVIL) TABLET PO SCH (08:08)
[2017-04-03] MEDS: CLOPIDOGREL 75 MG (PLAVIX) TABLET PO SCH (08:08)
--- NOTE | 2017-04-03 10:57 | Physical Therapy Daily Note ---
PT Daily Note-Current Subjective Pt. agrees to Rx. States he is looking forward to DC on Fri. Pain Numeric Pain Scale: 0-No Pain Mental Status Patient Orientation: Normal For Age Attachments: Other-See Comments (AFO and knee immobl left LE) Transfers Functional [place] Measure 0=Not Assessed/NA 4=Minimal Assistance 1=Total Assistance 5=Supervision or Setup 2=Maximal Assistance 6=Modified [place] 3=Moderate Assistance 7=Complete IndependenceIRFPAI Quality Coding Scale 6 Independent with activity with or without an assistive device 5 Patient requires set up or clean up by helper. Patient completes activity by themselves 4 Supervision or touching assist (CGA). [place] provide cues , steadying assist 3 The helper provides less than half the effort to complete the activity 2 The helper provides more than half the effort to complete the activity 1 Dependent. The helper does all the effort to complete an activity 7 Patient refused to complete or attempt activity 9 The patient did not perform the activity before the current illness or injury 88 Not attempted due to Medical conditions or safety concerns Transfers (B, C, W/C) (FIM): 5 Scootin Rollin Supine to/from Sit: 6 Sit to/from Stand: 5 Weight Bearing Right Lower Extremity: Right Full Weight Bearing Left Lower Extremity: Left Full Weight Bearing Gait Training Does the Patient Walk?: Yes Gait (FIM): 1 Distance (FIM): 1=up to 49 ft (15x4) Gait Level of Assist: 2 Gait Persons Needed: 1 Gait Assistive Device: Walker Wale mod assist to advance LLE, max assist to keep it abducted and placed safely, mod assist for balance at trunk during each step. assist for w/c to f/u Wheelchair Training Does the Pt Use a Wheelchair?: Yes Wheelchair (FIM): 6 Wheelchair Distance: 3=150 ft Wheelchair Level of Assist: 6 Type of Wheelchair: Manual Exercises Standing: Hip Abduction (left) Standing Reps: 10 (x3) Treatments standing wt shift at parallel bars as well as static stance for alignment, abduction left as above Assessment Current Status: Good Progress TRFs toward right SBA to Mod I, gait non functional requires max assist PT Short Term Goals Short Term Goals Time Frame: Mar 22, 2017 Gait (FIM): 2 Distance (FIM): 1=up to 49 ft Gait Assistive Device: Walker Wale Wheelchair (FIM): 6 (met) Wheelchair distance (FIM): 3=150 ft Wheelchair Distance: 150' PT Skilled Nursing Goals Product Marketing Programs Manager Goals PT Product Marketing Programs Manager Goals Time Frame: Apr 05, 2017 Transfers (B,C,W/C) (FIM): 6 Sit to Lying (QC): 6 Lying-Sitting on Side/Bed(QC): 6 Sit to Stand (QC): 6 Rollin Roll Left to Right (QC): 6 Chair/Vrw-lj-Njhwt Xfer(QC): 6 Car Transfer (QC): 5 Does the Patient Walk: No and Walking Goal IS indicated Gait (FIM): 5 Gait distance (FIM): 3=150 ft Walk 10 feet (QC): 5 Walk 10ft-Uneven Surface(QC): 5 Walk 50ft with 2 Turns (QC): 5 Walk 150 ft (QC): 5 Gait Level of Assist: 5 Gait Assistive Device: Walker Wale Does the Pt use WC or Scooter?: Yes Wheelchair (FIM): 6 Wheelchair distance (FIM): 3=150 ft Wheel 50 feet with 2 turns (QC: 6 Stairs (FIM): 2 # of Steps: 4 1 Step (curb) (QC): 4 4 Steps (QC): 4 12 Steps (QC): 88 Picking up an Object (QC): 88 PT Plan Treatment/Plan Treatment Plan: Continue Plan of Care Treatment Plan: Bed Mobility, Education, Functional Activity Curtis, Functional Strength, Group Therapy, Gait, Safety, Therapeutic Exercise, Transfers Treatment Duration: Apr 05, 2017 Frequency: At least 5 of 7 days/Wk (IRF) Estimated Hrs Per Day: 1.5 hours per day Patient and/or Family Agrees t: Yes Safety Risks/Education Patient Education: Gait Training, Transfer Techniques, Correct Positioning, W/ C Management, Disease Process, Safety Issues Teaching Recipient: Patient Teaching Methods: Demonstration, Discussion Response to Teaching: Verbalize Understanding, Return Demonstration Time/GCodes Time In: 850 Time Out: 940 Total Billed Treatment Time: 50 Total Billed Treatment 1,GT20m,FA15m,EX15m G Codes Necessary: JONG Mcfarland RAISE DRILLER Apr 03, 2017 10:57
[2017-04-03] MEDS: ATORVASTATIN 40 MG (LIPITOR) TABLET PO SCH (19:55)
[2017-04-03 20:34] VITALS: BP 106/71
[2017-04-04 05:36] VITALS: BP 128/74
[2017-04-04] MEDS: metFORMIN 500 MG (GLUCOPHAGE) TAB PO SCH ×2 (06:46→17:21)
[2017-04-04] MEDS: GLIMEPIRIDE 2 MG (AMARYL) TAB PO SCH (06:46)
[2017-04-04] MEDS: lisINopril 10 MG (PRINIVIL) TABLET PO SCH (08:04)
[2017-04-04] MEDS: CLOPIDOGREL 75 MG (PLAVIX) TABLET PO SCH (08:04)
[2017-04-04 17:41] VITALS: BP 101/53
[2017-04-04] MEDS: ATORVASTATIN 40 MG (LIPITOR) TABLET PO SCH (20:14)
[2017-04-05 05:08] VITALS: BP 118/73
[2017-04-05] MEDS: GLIMEPIRIDE 2 MG (AMARYL) TAB PO SCH (06:16)
[2017-04-05] MEDS: metFORMIN 500 MG (GLUCOPHAGE) TAB PO SCH ×2 (06:16→17:19)
--- NOTE | 2017-04-05 07:50 | Occupational Ther Daily Note ---
OT Current Status-Daily Note Subjective Pt alert, sitting in w/c. Pt agreed to therapy. No c/o pain at this time. Mental Status/Objective Patient Orientation: Person, Place, Time, Situation Functional [place] Measure 0=Not Assessed/NA 4=Minimal Assistance 1=Total Assistance 5=Supervision or Setup 2=Maximal Assistance 6=Modified [place] 3=Moderate Assistance 7=Complete [place] ADL-Treatment Pt agreed to shower. Pt had went home over the weekend and stated that the ramp was beginning and the w/c went through doorways. Functional [place] Measure 0=Not Assessed/NA 4=Minimal Assistance 1=Total Assistance 5=Supervision or Setup 2=Maximal Assistance 6=Modified [place] 3=Moderate Assistance 7=Complete IndependenceIRFPAI Quality Coding Scale 6 Independent with activity with or without an assistive device 5 Patient requires set up or clean up by helper. Patient completes activity by themselves 4 Supervision or touching assist (CGA). Page provide cues , steadying assist 3 The helper provides less than half the effort to complete the activity 2 The helper provides more than half the effort to complete the activity 1 Dependent. The helper does all the effort to complete an activity 7 Patient refused to complete or attempt activity 9 The patient did not perform the activity before the current illness or injury 88 Not attempted due to Medical conditions or safety concerns Grooming (FIM): 6 (At w/c level, pt is able to complete all grooming by self.) Oral Hygiene (QC): 6 Bathing (FIM): 4 (Using grabbar, shower bench, hand held shower, and long handle sponge pt is able to complete most of bathing in sitting by self. Pt pulls to stand with grabbars and stabilizes self with assist to cleanse buttocks.) Bathing Location: L Arm, R Arm, L Upper Leg, R Upper Leg, L Lower Leg ( including foot), R Lower Leg (including foot), Chest, Abdomen, Perineal Area Shower/Bathe Self (QC): 3 Upper Body (FIM): 6 (Retrieves clothing at w/c level then completes upper body dressing.) Upper Body Dressing (QC): 6 Lower Body Dressing (FIM): 4 (Retrieves clothing at w/c level. Pt is able to don/doff lower body clothing over feet by self. Assist needed as pt stabilizes self with surface (bed or grabbar) to hike pants over hips.) Lower Body Dressing (QC): 3 On/Off Footwear (QC): 6 Shower Transfer(FIM): 4 (Min A using grabbar, shower bench and w/c to transfer toward L side. SBA to transfer toward R side.) Other Treatment Pt completed UE task with nuts/bolts to increase AROM of L UE and fine motor skills. After therapy, pt sitting in ARU commons area in w/c. All needs met. OT Short Term Goals Short Term Goals Time Frame: Mar 22, 2017 Grooming(FIM): 5 Bathing(FIM): 4 Toileting(FIM): 3 Toilet/Commode Transfer(FIM): 4 Additional Short Term Goals: 2-Verbalize Understanding, 3-ImproveStrength/Curtis 1=Demonstrate adherence to instructed precautions during ADL tasks. 2=Patient will verbalize/demonstrate understanding of assistive devices/ modifications for ADL. 3=Patient will improve strength/tolerance for activity to enable patient to perform ADL's. OT Product Lead Goals Product Lead Goals Time Frame: Apr 05, 2017 Eating (FIM): 6 Eating (QC): 6 Groomin Oral Hygiene (QC): 6 Bathing(FIM): 5 Shower/Bathe Self (QC): 5 Upper Body Dressing(FIM): 6 Upper Body Dressing (QC): 6 Lower Body Dressing(FIM): 5 Lower Body Dressing (QC): 5 On/Off Footwear (QC): 5 Toileting(FIM): 5 Toileting Hygiene (QC): 5 Toilet/Commode Transfer(FIM): 5 Toilet/Commode Transfer (QC): 5 Shower Transfer(FIM): 5 Additional Goals: 2-Verbalize Understanding, 3-ImproveStrength/Curtis 1=Demonstrate adherence to instructed precautions during ADL tasks. 2=Patient will verbalize/demonstrate understanding of assistive devices/ modifications for ADL. 3=Patient will improve strength/tolerance for activity to enable patient to perform ADL's. OT Education/Plan Problem List/Assessment Pt would benefit from skilled OT to increase his independence in basic self care and to decrease caregiver burden. Discharge Recommendations Plan/Recommendations: Continue POC Treatment Plan/Plan of Care Patient would benefit from OT for education, treatment and training to promote independence in ADL's, mobility, safety and/or upper extremity function for ADL' s. Plan of Care: ADL Retraining, Functional Mobility, Group Exercise/Act as Ind ( educaiton, exercise, activity tolerance, functional acitivites, socialization), UE Funct Exercise/Act, UE Neuromus Re-Ed/Coord, W/C Management Training Treatment Duration: Apr 05, 2017 Frequency: At least 5 of 7 days/Wk (IRF) Estimated Hrs Per Day: 1.5 hours per day Agreement: Yes Rehab Potential: Good Time/GCodes Start Time: 06:54 Stop Time: 07:54 Total Time Billed (hr/min): 60 Billed Treatment Time 1 visit-ADL 3 (45 min) NM 1 (15 min) AARTI STARR Apr 05, 2017 07:50
[2017-04-05] MEDS: lisINopril 10 MG (PRINIVIL) TABLET PO SCH (08:09)
[2017-04-05] MEDS: CLOPIDOGREL 75 MG (PLAVIX) TABLET PO SCH (08:09)
--- NOTE | 2017-04-05 08:30 | Progress Note (SOAP) ---
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 Hypertension. Diabetes. Patient feels he is improving. Still unsteady on feet. 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 Hypertension. Hyperlipidemia. Tobacco usage. Abdominal aortic aneurysm. GERD . 03/10/17. 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 Hypertension. Hyperlipidemia. Tobacco usage. Patient working hard and moving left arm today. . 03/11/17. 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 Hypertension. Hyperlipidemia. Tobacco usage. Patient working hard and improving. . 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 Hypertension. Hyperlipidemia Tobacco usage. Patient stomach doing better . 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 nauseous. Hypertension. Hyperlipidemia. Tobacco usage. . 03/16/17. 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 Hypertension. Constipation. Hyperlipidemia. Tobacco usage. . 03/17/17. 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 Hypertension. Constipation. Hyperlipidemia. Patient seems positive. Patient working hard . 03/18/17. 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 Hypertension. Did not have a bowel movement today. Hyperlipidemia. Patient working on walking. . 03/19/17. 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 Hypertension. Hyperlipidemia. Constipation resolved. . 03/22/17. 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 Hypertension. Hyperlipidemia. Patient doing better with left upper extremity and left lower extremity. . 03/23. 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 Hypertension.. patient doing better with upper extremity than lower extremity and left. . 03/24/17. 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 Hypertension. Patient improving with left upper extremity. . 03/25/17. 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 Hypertension. Patient doing better with his left upper extremity. . 03/26/17. 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 Hypertension. Left lower extremity having problems. . 03/29/17. 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 Hypertension. Patient still needs work. . 03/30/17. 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 Hypertension. Diabetes under good control. Patient making slow progress but improving. . 03/31/17. 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 Hypertension good control. Diabetes good. For patient to walk needs somebody to help hold him up. . 04/01/17. 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 Patient has trouble getting around on the left side when he walks. Patient unstable. . 04/02/17. 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 Patient doing good in wheelchair. Patient unstable when he walks area Patient's left upper extremity doing better. . 04/05/17. 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 Patient standing up a little better Clinical Quality Measures DVT/VTE Risk/Contraindication: Risk Factor Score Per Nursin RFS Level Per Nursing on Admit: 4+=Very High JAIME ROBERSON DO Apr 05, 2017 08:30
--- NOTE | 2017-04-05 09:20 | Physical Therapy Rehab Re-Cert ---
PT Re-Certification Form Physical Therapy Treatment Plan: Continue Plan of Care Bed Mobility, Education, Functional Activity Curtis, Functional Strength, Group Therapy, Gait, Safety, Therapeutic Exercise, Transfers Patient is making progress toward his senior living goals. He is ambulating 150' with a hemiwalker and mod assist and a left AFO and knee immobilizer. Performs bed mobility with min assist and transfers to the right with CGA and the left with min assist. He propels a manual wheelchair with mod I. Treatment Duration: 04/19/17 Frequency: At least 5 of 7 days/Wk (IRF) Estimated Hrs Per Day: 1.5 hours per day Patient and/or Family Agrees t: Yes Rehab Potential: Fair PT Short Term Goals Short Term Goals Time Frame: Mar 22, 2017 Gait (FIM): 2 Distance (FIM): 1=up to 49 ft Gait Assistive Device: Walker Wale Wheelchair (FIM): 6 (met) Wheelchair distance (FIM): 3=150 ft Wheelchair Distance: 150' PT Fpc Goals Fpc Goals PT Siebel Developer Goals Time Frame: Apr 05, 2017 Transfers (B,C,W/C) (FIM): 6 Gait (FIM): 5 Gait distance (FIM): 3=150 ft Gait Level of Assist: 5 Gait Assistive Device: Walker Wale Wheelchair (FIM): 6 Wheelchair distance (FIM): 3=150 ft Stairs (FIM): 2 # of Steps: 4 MARJ FARIA PT Apr 05, 2017 09:20
--- NOTE | 2017-04-05 09:39 | Physical Therapy Daily Note ---
PT Daily Note-Current Subjective Pt is sitting in [facility] in visiting area pre tx and has no complaints of pain and agrees to PT. Pain Numeric Pain Scale: 0-No Pain Location: No Pain Reported Appearance Pt is laying in bed post tx with nurse call, phone, and tray within reach. Mental Status Patient Orientation: Normal For Age Transfers Functional [place] Measure 0=Not Assessed/NA 4=Minimal Assistance 1=Total Assistance 5=Supervision or Setup 2=Maximal Assistance 6=Modified [place] 3=Moderate Assistance 7=Complete IndependenceIRFPAI Quality Coding Scale 6 Independent with activity with or without an assistive device 5 Patient requires set up or clean up by helper. Patient completes activity by themselves 4 Supervision or touching assist (CGA). Bishop provide cues , steadying assist 3 The helper provides less than half the effort to complete the activity 2 The helper provides more than half the effort to complete the activity 1 Dependent. The helper does all the effort to complete an activity 7 Patient refused to complete or attempt activity 9 The patient did not perform the activity before the current illness or injury 88 Not attempted due to Medical conditions or safety concerns Transfers (B, C, W/C) (FIM): 4 Scootin Rollin Supine to/from Sit: 6 Sit to/from Stand: 4 Bed to/from Chair: 4 Mod I with rolling and supine to sit with use of bed rails and head of bed elevated. CGA needed for sit to stand and bed to chair transfer to the R and L. Weight Bearing Right Lower Extremity: Right Full Weight Bearing Left Lower Extremity: Left Full Weight Bearing Gait Training Does the Patient Walk?: Yes Gait (FIM): 4 Distance: 150 feet Gait Level of Assist: 4 Gait Persons Needed: 1 Gait Assistive Device: Walker Wale Min A for guidance with weight shifting and taking smaller steps with the LLE. Uses left AFO and knee immobilizer. Wheelchair Training Does the Pt Use a Wheelchair?: Yes Wheelchair (FIM): 6 Distance: 150' Wheelchair Level of Assist: 6 Type of Wheelchair: Manual Exercises Standing: Sit to Stand (5 x2 at differeing heights), Weight shifts (10 x2 with manual guidance for L knee extension and weight shifting) NuStep Minutes: 15 NuStep Workload: 5 (5 for 7 min, 6 for 8 min) Treatments Pt performed gait training, bed mobility, and functional mobility, and strengthening Assessment Current Status: Fair Progress Pt is more steady today with less cues required for weight shifting during ambulation. Pt requires min A for weight shifting in standing. PT Short Term Goals Short Term Goals Time Frame: Mar 22, 2017 Gait (FIM): 2 Distance (FIM): 1=up to 49 ft Gait Assistive Device: Walker Wale Wheelchair (FIM): 6 (met) Wheelchair distance (FIM): 3=150 ft Wheelchair Distance: 150' PT Halfway Goals Halfway Goals PT Telephone Answerer Goals Time Frame: Apr 05, 2017 Transfers (B,C,W/C) (FIM): 6 Sit to Lying (QC): 6 Lying-Sitting on Side/Bed(QC): 6 Sit to Stand (QC): 6 Rollin Roll Left to Right (QC): 6 Chair/Hoh-rh-Soakl Xfer(QC): 6 Car Transfer (QC): 5 Does the Patient Walk: No and Walking Goal IS indicated Gait (FIM): 5 Gait distance (FIM): 3=150 ft Walk 10 feet (QC): 5 Walk 10ft-Uneven Surface(QC): 5 Walk 50ft with 2 Turns (QC): 5 Walk 150 ft (QC): 5 Gait Level of Assist: 5 Gait Assistive Device: Walker Wale Does the Pt use WC or Scooter?: Yes Wheelchair (FIM): 6 Wheelchair distance (FIM): 3=150 ft Wheel 50 feet with 2 turns (QC: 6 Stairs (FIM): 2 # of Steps: 4 1 Step (curb) (QC): 4 4 Steps (QC): 4 12 Steps (QC): 88 Picking up an Object (QC): 88 PT Plan Problem List Problem List: Activity Tolerance, Functional Strength, Safety, Balance, Gait, Transfer, Bed Mobility, ROM Treatment/Plan Treatment Plan: Continue Plan of Care Treatment Plan: Bed Mobility, Education, Functional Activity Curtis, Functional Strength, Group Therapy, Gait, Safety, Therapeutic Exercise, Transfers Treatment Duration: Apr 05, 2017 Frequency: At least 5 of 7 days/Wk (IRF) Estimated Hrs Per Day: 1.5 hours per day Patient and/or Family Agrees t: Yes Safety Risks/Education Patient Education: Gait Training, Transfer Techniques, Correct Positioning, W/ C Management, Safety Issues Teaching Recipient: Patient Teaching Methods: Demonstration, Discussion Response to Teaching: Reinforcement Needed Time/GCodes Time In: 800 Time Out: 900 Total Billed Treatment Time: 60 Total Billed Treatment 1 visit 15 min GT 15 min EX 30 min MARJ LARSEN PT Apr 05, 2017 09:38
--- NOTE | 2017-04-05 14:41 | Therapy Group Daily Note ---
Therapy Daily Group Note Patient Education Topic Exercises, Other List Below (Purpose and intent of the IRF) Exercises LE Seated Exercise, Stretching, UE Exercise, Other (Coordination, Core exercises ) Other/Notes Pt propelled [facility] to the vgroup area. Session began with socialization and introductions in order for each pt to become familiar with others admitted to the IRF. Education consisted of the purpose and intent of the IRF and the expectations of a pt receiving therapy in the IRF as there were 3 new pts in the facility. Pt educated on participating in 3 hours of therapy each and between 15-30 min of therapy on Wednesday. Exercises were performed in the seated position for each pt. PT and POKER ROOM MANAGER informed pt not to perform specific exercises if they were contraindicated for the pt. Exercises focused on strengthening the UE and LE, strengthening the core, promoting flexibility through stretching, and improving coordination. Each exercise lasted 30-60 seconds and rest breaks were given as indicated. This patient activiely engaged in conversation and the benefits of group therapy. He expressed the benefits he has found over the past 3 weeks and voiced the importance of it. He actively participated in ther ex and stretching activities. He seemed to enjoy the the session and was welcoming to new patients. Start Time: 13:00 Stop Time: 14:05 Total Billed Treatment Time: 65 Total Billed Treatment 1 visit 65 min AARTI HUBER PT Apr 05, 2017 14:41
--- NOTE | 2017-04-05 15:54 | PM & R (SOAP) Progress Note ---
Subjective Time Seen by Provider: 14:15 Subjective/Events-last exam Patient was seen on unit this Afternoon Sitting in W/C Patient min assist for transfers Family buiding w/c ramp for his home in [facility].Patient indicates that day pass went well over weekend Objective Exam Last Set of Vital Signs Vital Signs Date Time Temp Pulse Resp B/P (MAP) Pulse Ox O2 Delivery O2 Flow Rate FiO2 04/05/17 09:00 Room Air 04/05/17 05:08 97.2 79 18 118/73 (88) 99 Capillary Refill : Less Than 3 Seconds I&O Intake and Output 04/05/17 00:00 Intake Total 1150 ml Balance 1150 ml Intake Oral 1150 ml # Voids 5 # Bowel Movements 1 General: Alert, Oriented X3, Cooperative, No Acute Distress HEENT: Atraumatic, PERRLA, EOMI, Mucous Memb Moist/[place] Neck: Supple, No JVD Lungs: Clear to Auscultation Heart: Regular Rate Abdomen: Normal Bowel Sounds, Soft, No Tenderness Extremities: No Edema Neuro: Other (Left LE flaccid with trace return LUE) Psych/Mental Status: Mental Status NL Results Lab Laboratory Tests 04/02/17 15:59: Glucometer 116H 04/03/17 05:33: Glucometer 116H 04/03/17 19:53: Glucometer 211H 04/04/17 05:31: Glucometer 107 04/04/17 16:18: Glucometer 116H 04/05/17 05:14: Glucometer 115H Assessment/Plan Assessment Rt MCA CVA with Left HP HTN controlled DM2 controlled Tobacco abuse declines Patch 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 GERD without espohagitis AAA without rupture Mild nausea-Zofran ordered prn-improved Constipation meds to be adjusted as needed-improved had BM Plan Continue PT/OT ST has assessed and signed off Decreased Accucheks as per above-stable Patient has 2 sons and a daughter in this area to help out upon discharge Zofran for nausea-improved Current meds reviewed Accucheks noted Appreciate ABD Xray results Adjust meds for constipation as needed TLOA (DAY PASS) this past weekend went well patient visited his home Next Team Conference 04-07-17 Discharge set tetatively for 04-09-17 NNEKA MARTIN MD Apr 05, 2017 15:54
[2017-04-05 18:00] VITALS: BP 102/68
[2017-04-05] MEDS: ATORVASTATIN 40 MG (LIPITOR) TABLET PO SCH (20:03)
[2017-04-06 05:40] VITALS: BP 126/79
[2017-04-06] MEDS: metFORMIN 500 MG (GLUCOPHAGE) TAB PO SCH ×2 (06:33→17:37)
[2017-04-06] MEDS: GLIMEPIRIDE 2 MG (AMARYL) TAB PO SCH (06:33)
--- NOTE | 2017-04-06 07:59 | Occupational Ther Daily Note ---
OT Current Status-Daily Note Subjective Pt alert, sitting in w/c. Pt agreed to therapy. No c/o pain. Mental Status/Objective Patient Orientation: Person, Place, Time, Situation Functional [place] Measure 0=Not Assessed/NA 4=Minimal Assistance 1=Total Assistance 5=Supervision or Setup 2=Maximal Assistance 6=Modified [place] 3=Moderate Assistance 7=Complete [place] ADL-Treatment Pt completed grooming prior to therapy. Functional [place] Measure 0=Not Assessed/NA 4=Minimal Assistance 1=Total Assistance 5=Supervision or Setup 2=Maximal Assistance 6=Modified [place] 3=Moderate Assistance 7=Complete IndependenceIRFPAI Quality Coding Scale 6 Independent with activity with or without an assistive device 5 Patient requires set up or clean up by helper. Patient completes activity by themselves 4 Supervision or touching assist (CGA). [place] provide cues , steadying assist 3 The helper provides less than half the effort to complete the activity 2 The helper provides more than half the effort to complete the activity 1 Dependent. The helper does all the effort to complete an activity 7 Patient refused to complete or attempt activity 9 The patient did not perform the activity before the current illness or injury 88 Not attempted due to Medical conditions or safety concerns Eating (FIM): 5 (Pt is inconsistent with opening packages/containers by himself. Pt is able to use regular utensils to feed self and cut food. ) Eating (QC): 5 Grooming (FIM): 6 Oral Hygiene (QC): 6 Toilet/Commode Transfer (FIM): 4 (Per previous treatments, pt requires min A to transfer using w/c, grabbar and BSC going toward L side. Close SBA for transfers to R side.) Toilet Transfer (QC): 3 Other Treatment Pt maneuvered w/c to therapy gym. Pt completed arm bike for 15 min at 15 spaulding resistance to increase strength and AAROM for daily functional tasks. Pt was able to use B UE's throughout, L hand slipped off of handle 3x's. Pt then transferred to therapy with CGA to go toward L side and SBA for R side. Pt completed B UE dowel paige exercises in supine for shldr AAROM, 2 sets of 10. Bicep dowel paige, 3 sets 10 reps. Light resistance theraband UE exercises to increase strength of UE and city sanitarian for L UE. Taping to shldr for L shldr support due to subluxation. After therapy, pt sitting in w/c at [facility]. All needs met in room. OT Short Term Goals Short Term Goals Time Frame: Mar 22, 2017 Grooming(FIM): 5 Bathing(FIM): 4 Toileting(FIM): 3 Toilet/Commode Transfer(FIM): 4 Additional Short Term Goals: 2-Verbalize Understanding, 3-ImproveStrength/Curtis 1=Demonstrate adherence to instructed precautions during ADL tasks. 2=Patient will verbalize/demonstrate understanding of assistive devices/ modifications for ADL. 3=Patient will improve strength/tolerance for activity to enable patient to perform ADL's. OT Care Home Goals Chute Greaser Goals Time Frame: Apr 05, 2017 Eating (FIM): 6 Eating (QC): 6 Groomin Oral Hygiene (QC): 6 Bathing(FIM): 5 Shower/Bathe Self (QC): 5 Upper Body Dressing(FIM): 6 Upper Body Dressing (QC): 6 Lower Body Dressing(FIM): 5 Lower Body Dressing (QC): 5 On/Off Footwear (QC): 5 Toileting(FIM): 5 Toileting Hygiene (QC): 5 Toilet/Commode Transfer(FIM): 5 Toilet/Commode Transfer (QC): 5 Shower Transfer(FIM): 5 Additional Goals: 2-Verbalize Understanding, 3-ImproveStrength/Curtis 1=Demonstrate adherence to instructed precautions during ADL tasks. 2=Patient will verbalize/demonstrate understanding of assistive devices/ modifications for ADL. 3=Patient will improve strength/tolerance for activity to enable patient to perform ADL's. OT Education/Plan Problem List/Assessment Pt would benefit from skilled OT to increase his independence in basic self care and to decrease caregiver burden. Discharge Recommendations Plan/Recommendations: Continue POC Treatment Plan/Plan of Care Patient would benefit from OT for education, treatment and training to promote independence in ADL's, mobility, safety and/or upper extremity function for ADL' s. Plan of Care: ADL Retraining, Functional Mobility, Group Exercise/Act as Ind ( educaiton, exercise, activity tolerance, functional acitivites, socialization), UE Funct Exercise/Act, UE Neuromus Re-Ed/Coord, W/C Management Training Treatment Duration: Apr 05, 2017 Frequency: At least 5 of 7 days/Wk (IRF) Estimated Hrs Per Day: 1.5 hours per day Agreement: Yes Rehab Potential: Fair Time/GCodes Start Time: 07:00 Stop Time: 08:00 Total Time Billed (hr/min): 60 Billed Treatment Time 1 visit-NM 4 (60 min) AARTI STARR Apr 06, 2017 07:59
[2017-04-06] MEDS: CLOPIDOGREL 75 MG (PLAVIX) TABLET PO SCH (08:10)
[2017-04-06] MEDS: lisINopril 10 MG (PRINIVIL) TABLET PO SCH (08:11)
--- NOTE | 2017-04-06 08:43 | Progress Note (SOAP) ---
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 Patient doing better. Patient discharged Wednesday. Patient voices no complaints. Moving left upper extremity better Objective Exam Vital Signs Date Time Temp Pulse Resp B/P (MAP) Pulse Ox O2 Delivery O2 Flow Rate FiO2 04/06/17 08:11 Room Air 04/06/17 05:40 96.9 87 18 126/79 (95) 97 Room Air 04/05/17 20:30 Room Air 04/05/17 18:00 96.4 85 16 102/68 (79) 95 Room Air 04/05/17 09:00 Room Air I & O 04/06/17 07:00 Intake Total 1300 ml Balance 1300 ml Capillary Refill : Less Than 3 Seconds General Appearance: No Apparent Distress, WD/WN Results Lab Laboratory Tests 04/05/17 17:02: Glucometer 91 04/06/17 05:43: Glucometer 129H Assessment/Plan Assessment/Plan Assess & Plan/Chief Complaint 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 Hypertension. Hyperlipidemia. Tobacco usage. Abdominal aortic aneurysm. GERD . 03/10/17. 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 Hypertension. Hyperlipidemia. Tobacco usage. Patient working hard and moving left arm today. . 03/11/17. 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 Hypertension. Hyperlipidemia. Tobacco usage. Patient working hard and improving. . 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 Hypertension. Hyperlipidemia Tobacco usage. Patient stomach doing better . 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 nauseous. Hypertension. Hyperlipidemia. Tobacco usage. . 03/16/17. 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 Hypertension. Constipation. Hyperlipidemia. Tobacco usage.. . / . 03/17/17. 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 Hypertension. Constipation. Hyperlipidemia. Patient seems positive. Patient working hard . 03/18/17. 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 Hypertension. Did not have a bowel movement today. Hyperlipidemia. Patient working on walking. . 03/19/17. 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 Hypertension. Hyperlipidemia. Constipation resolved. . 03/22/17. 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 Hypertension. Hyperlipidemia. Patient doing better with left upper extremity and left lower extremity. . 03/23. 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 Hypertension.. patient doing better with upper extremity than lower extremity and left. . 03/24/17. 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 Hypertension. Patient improving with left upper extremity. . 03/25/17. 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 Hypertension. Patient doing better with his left upper extremity. . 03/26/17. 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 Hypertension. Left lower extremity having problems. . 03/29/17. 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 Hypertension. Patient still needs work. . 03/30/17. 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 Hypertension. Diabetes under good control. Patient making slow progress but improving. . 03/31/17. 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 Hypertension good control. Diabetes good. For patient to walk needs somebody to help hold him up. . 04/01/17. 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 Patient has trouble getting around on the left side when he walks. Patient unstable. . 04/02/17. 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 Patient doing good in wheelchair. Patient unstable when he walks area Patient's left upper extremity doing better. . 04/05/17. 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 Patient standing up a little better . . 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 Patient be discharged Wednesday. patient voices no complaints Patient hard worker Clinical Quality Measures DVT/VTE Risk/Contraindication: Risk Factor Score Per Nursin RFS Level Per Nursing on Admit: 4+=Very High JAIME ROBERSON DO Apr 06, 2017 08:43
--- NOTE | 2017-04-06 08:50 | Occ Therapy Rehab Re-Cert ---
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 Will cont same frequency but extend duration for two weeks, to allow discharge to home. Treatment Duration: april 19, 2017 Frequency: At least 5 of 7 days/Wk (IRF) Estimated Hrs Per Day: 1.5 hours per day Agreement: Yes Rehab Potential: Good OT Short Term Goals Short Term Goals Time Frame: Mar 22, 2017 Grooming(FIM): 5 Bathing(FIM): 4 Toileting(FIM): 3 Toilet/Commode Transfer(FIM): 4 Additional Short Term Goals: 2-Verbalize Understanding, 3-ImproveStrength/Curtis 1=Demonstrate adherence to instructed precautions during ADL tasks. 2=Patient will verbalize/demonstrate understanding of assistive devices/ modifications for ADL. 3=Patient will improve strength/tolerance for activity to enable patient to perform ADL's. OT Sort Worker Goals Jail Goals Time Frame: Apr 05, 2017 Eating (FIM): 6 Grooming(FIM): 6 Bathing(FIM): 5 Upper Body Dressing(FIM): 6 Lower Body Dressing(FIM): 5 Toileting(FIM): 5 Toilet/Commode Transfer(FIM): 5 Shower Transfer(FIM): 5 Additional Goals: 2-Verbalize Understanding, 3-ImproveStrength/Curtis 1=Demonstrate adherence to instructed precautions during ADL tasks. 2=Patient will verbalize/demonstrate understanding of assistive devices/ modifications for ADL. 3=Patient will improve strength/tolerance for activity to enable patient to perform ADL's. ROSY CHAVES OT Apr 06, 2017 08:50
--- NOTE | 2017-04-06 12:06 | Physical Therapy Daily Note ---
PT Daily Note-Current Subjective Pt is sitting in [facility] in room pre tx and has no complaints of pain. Pt agrees to PT. Pt son and pt girlfriend in attendance. Pain Numeric Pain Scale: 0-No Pain Location: No Pain Reported Appearance Pt is sitting in [facility] in visiting area with all needs met at this time. Mental Status Patient Orientation: Normal For Age Transfers Functional [place] Measure 0=Not Assessed/NA 4=Minimal Assistance 1=Total Assistance 5=Supervision or Setup 2=Maximal Assistance 6=Modified [place] 3=Moderate Assistance 7=Complete IndependenceIRFPAI Quality Coding Scale 6 Independent with activity with or without an assistive device 5 Patient requires set up or clean up by helper. Patient completes activity by themselves 4 Supervision or touching assist (CGA). [place] provide cues , steadying assist 3 The helper provides less than half the effort to complete the activity 2 The helper provides more than half the effort to complete the activity 1 Dependent. The helper does all the effort to complete an activity 7 Patient refused to complete or attempt activity 9 The patient did not perform the activity before the current illness or injury 88 Not attempted due to Medical conditions or safety concerns Transfers (B, C, W/C) (FIM): 4 Scootin Rollin Supine to/from Sit: 5 Sit to/from Stand: 4 Bed to/from Chair: 4 SBA needed for bed mobility and CGA needed for sit to stand and bed to chair transfers, even to the left side. Weight Bearing Right Lower Extremity: Right Full Weight Bearing Left Lower Extremity: Left Full Weight Bearing Gait Training Does the Patient Walk?: Yes Wheelchair Training Does the Pt Use a Wheelchair?: Yes Wheelchair (FIM): 5 Distance: 1000', 200' Wheelchair Level of Assist: 5 Type of Wheelchair: Manual Exercises Supine Ex: Bridging (10 x2 BLE with manual assistance promoting WB through LLE) , Rolling (2 x1 to R and L) Seated Therapy Exercises: Long arc quads (20 x1 RLE, 10 x4 active-assisted with LLE) Pt propelled [facility] with R foot to travel up and down ramp inside hospital with SBA. WCH to bed transfer to R and L: 4 x1 Supine to sit edge of bed: 3 x1 Treatments Pt performed [facility] mobility, transfer training, bed mobility, LE exercises. Assessment Current Status: Fair Progress Pt required verbal cues to look behind when going up ramp backwards in the [facility]. Pt has continued to improve bed mobility and transfers. Pt is not yet able to actively extend L knee and requires assistance during LAQ. PT Short Term Goals Short Term Goals Time Frame: Mar 22, 2017 Gait (FIM): 2 Distance (FIM): 1=up to 49 ft Gait Assistive Device: Walker Wale Wheelchair (FIM): 6 (met) Wheelchair distance (FIM): 3=150 ft Wheelchair Distance: 150' PT Store Protection Specialist Goals Penitentiary Goals PT Penitentiary Goals Time Frame: Apr 05, 2017 Transfers (B,C,W/C) (FIM): 6 Sit to Lying (QC): 6 Lying-Sitting on Side/Bed(QC): 6 Sit to Stand (QC): 6 Rollin Roll Left to Right (QC): 6 Chair/Ubd-zd-Obtsm Xfer(QC): 6 Car Transfer (QC): 5 Does the Patient Walk: No and Walking Goal IS indicated Gait (FIM): 5 Gait distance (FIM): 3=150 ft Walk 10 feet (QC): 5 Walk 10ft-Uneven Surface(QC): 5 Walk 50ft with 2 Turns (QC): 5 Walk 150 ft (QC): 5 Gait Level of Assist: 5 Gait Assistive Device: Walker Wale Does the Pt use WC or Scooter?: Yes Wheelchair (FIM): 6 Wheelchair distance (FIM): 3=150 ft Wheel 50 feet with 2 turns (QC: 6 Stairs (FIM): 2 # of Steps: 4 1 Step (curb) (QC): 4 4 Steps (QC): 4 12 Steps (QC): 88 Picking up an Object (QC): 88 PT Plan Problem List Problem List: Activity Tolerance, Functional Strength, Safety, Balance, Gait, Transfer, Bed Mobility, ROM Treatment/Plan Treatment Plan: Continue Plan of Care Treatment Plan: Bed Mobility, Education, Functional Activity Curtis, Functional Strength, Group Therapy, Gait, Safety, Therapeutic Exercise, Transfers Treatment Duration: Apr 05, 2017 Frequency: At least 5 of 7 days/Wk (IRF) Estimated Hrs Per Day: 1.5 hours per day Patient and/or Family Agrees t: Yes Safety Risks/Education Patient Education: Transfer Techniques, Correct Positioning, W/C Management, Safety Issues Teaching Recipient: Patient, Family Teaching Methods: Demonstration, Discussion Response to Teaching: Reinforcement Needed Time/GCodes Time In: 1000 Time Out: 1100 Total Billed Treatment Time: 60 Total Billed Treatment 1 visit 30 min WCH 15 min EX 15 min MARJ LARSEN PT Apr 06, 2017 12:06
--- NOTE | 2017-04-06 14:05 | PM & R (SOAP) Progress Note ---
Subjective Time Seen by Provider: 07:45 Subjective/Events-last exam Patient was seen on unit this AM Patient min assist for transfers Objective Exam Last Set of Vital Signs Vital Signs Date Time Temp Pulse Resp B/P (MAP) Pulse Ox O2 Delivery O2 Flow Rate FiO2 04/06/17 08:11 Room Air 04/06/17 05:40 96.9 87 18 126/79 (95) 97 Capillary Refill : Less Than 3 Seconds I&O Intake and Output 04/06/17 00:00 Intake Total 950 ml Balance 950 ml Intake Oral 950 ml # Voids 5 # Bowel Movements 1 General: Alert, Oriented X3, Cooperative, No Acute Distress HEENT: Atraumatic, PERRLA, EOMI, Mucous Memb Moist/[place] Neck: Supple, No JVD Lungs: Clear to Auscultation Heart: Regular Rate Abdomen: Normal Bowel Sounds, Soft, No Tenderness Extremities: No Edema Neuro: Other (Left LE flaccid with trace return LUE) Psych/Mental Status: Mental Status NL Results Lab Laboratory Tests 04/03/17 19:53: Glucometer 211H 04/04/17 05:31: Glucometer 107 04/04/17 16:18: Glucometer 116H 04/05/17 05:14: Glucometer 115H 04/05/17 17:02: Glucometer 91 04/06/17 05:43: Glucometer 129H Assessment/Plan Assessment Rt MCA CVA with Left HP HTN controlled DM2 controlled Tobacco abuse declines Patch 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 GERD without espohagitis AAA without rupture Mild nausea-Zofran ordered prn-improved Constipation meds to be adjusted as needed-improved had BM Plan Continue PT/OT ST has assessed and signed off Decreased Accucheks as per above-stable Patient has 2 sons and a daughter in this area to help out upon discharge Zofran for nausea-improved Current meds reviewed Accucheks noted Appreciate ABD Xray results Adjust meds for constipation as needed TLOA (DAY PASS) this past weekend went well patient visited his home Next Team Conference tomorrow 04-07-17 Discharge remains set tetatively for 04-09-17 NNEKA MARTIN MD Apr 06, 2017 14:05
--- NOTE | 2017-04-06 14:17 | Occupational Ther Daily Note ---
OT Current Status-Daily Note Subjective Pt alert, sitting in w/c at ARU table. Pt agreed to therapy. No c/o pain at this time. Mental Status/Objective Patient Orientation: Person, Place, Time, Situation Functional [place] Measure 0=Not Assessed/NA 4=Minimal Assistance 1=Total Assistance 5=Supervision or Setup 2=Maximal Assistance 6=Modified [place] 3=Moderate Assistance 7=Complete [place] ADL-Treatment Functional [place] Measure 0=Not Assessed/NA 4=Minimal Assistance 1=Total Assistance 5=Supervision or Setup 2=Maximal Assistance 6=Modified [place] 3=Moderate Assistance 7=Complete IndependenceIRFPAI Quality Coding Scale 6 Independent with activity with or without an assistive device 5 Patient requires set up or clean up by helper. Patient completes activity by themselves 4 Supervision or touching assist (CGA). [place] provide cues , steadying assist 3 The helper provides less than half the effort to complete the activity 2 The helper provides more than half the effort to complete the activity 1 Dependent. The helper does all the effort to complete an activity 7 Patient refused to complete or attempt activity 9 The patient did not perform the activity before the current illness or injury 88 Not attempted due to Medical conditions or safety concerns Other Treatment Pt and MARTELL discussed transfers and equipment needs for home bathroom use. Pt stated that daughter is looking at getting a BSC that can be used in the shower and over the toilet. Placement of grabbars during transfers into shower and onto toilet discussed. Pt demonstrated ability to complete toilet transfer with CGA toward L side and SBA for R side, assist needed to manipulate pants. Pt then maneuvered w/c to therapy gym to complete nut/bolt activity to increase AROM of UE and dexterity and pinch strength. After therapy, pt sitting in w/c at ARU table. All needs met. OT Short Term Goals Short Term Goals Time Frame: Mar 22, 2017 Grooming(FIM): 5 Bathing(FIM): 4 Toileting(FIM): 3 Toilet/Commode Transfer(FIM): 4 Additional Short Term Goals: 2-Verbalize Understanding, 3-ImproveStrength/Curtis 1=Demonstrate adherence to instructed precautions during ADL tasks. 2=Patient will verbalize/demonstrate understanding of assistive devices/ modifications for ADL. 3=Patient will improve strength/tolerance for activity to enable patient to perform ADL's. OT Nca Certified Concierge Goals Nca Certified Concierge Goals Time Frame: Apr 05, 2017 Eating (FIM): 6 Eating (QC): 6 Groomin Oral Hygiene (QC): 6 Bathing(FIM): 5 Shower/Bathe Self (QC): 5 Upper Body Dressing(FIM): 6 Upper Body Dressing (QC): 6 Lower Body Dressing(FIM): 5 Lower Body Dressing (QC): 5 On/Off Footwear (QC): 5 Toileting(FIM): 5 Toileting Hygiene (QC): 5 Toilet/Commode Transfer(FIM): 5 Toilet/Commode Transfer (QC): 5 Shower Transfer(FIM): 5 Additional Goals: 2-Verbalize Understanding, 3-ImproveStrength/Curtis 1=Demonstrate adherence to instructed precautions during ADL tasks. 2=Patient will verbalize/demonstrate understanding of assistive devices/ modifications for ADL. 3=Patient will improve strength/tolerance for activity to enable patient to perform ADL's. OT Education/Plan Problem List/Assessment Pt would benefit from skilled OT to increase his independence in basic self care and to decrease caregiver burden. Discharge Recommendations Plan/Recommendations: Continue POC Treatment Plan/Plan of Care Patient would benefit from OT for education, treatment and training to promote independence in ADL's, mobility, safety and/or upper extremity function for ADL' s. Plan of Care: ADL Retraining, Functional Mobility, Group Exercise/Act as Ind ( educaiton, exercise, activity tolerance, functional acitivites, socialization), UE Funct Exercise/Act, UE Neuromus Re-Ed/Coord, W/C Management Training Treatment Duration: Apr 05, 2017 Frequency: At least 5 of 7 days/Wk (IRF) Estimated Hrs Per Day: 1.5 hours per day Agreement: Yes Rehab Potential: Good Time/GCodes Start Time: 11:30 Stop Time: 12:00 Total Time Billed (hr/min): 30 Billed Treatment Time 1 visit-FA 2 (30 min) AARTI STARR Apr 06, 2017 14:17
--- NOTE | 2017-04-06 14:47 | Physical Therapy Daily Note ---
PT Daily Note-Current Subjective Pt is sitting in [facility] in room pre tx and has no complaints of pain. Pt agrees to PT. Pain Numeric Pain Scale: 0-No Pain Location: No Pain Reported Appearance Pt is laying in bed in room post tx with nurse call, phone, and tray within reach. Mental Status Patient Orientation: Normal For Age Transfers Functional [place] Measure 0=Not Assessed/NA 4=Minimal Assistance 1=Total Assistance 5=Supervision or Setup 2=Maximal Assistance 6=Modified [place] 3=Moderate Assistance 7=Complete IndependenceIRFPAI Quality Coding Scale 6 Independent with activity with or without an assistive device 5 Patient requires set up or clean up by helper. Patient completes activity by themselves 4 Supervision or touching assist (CGA). [place] provide cues , steadying assist 3 The helper provides less than half the effort to complete the activity 2 The helper provides more than half the effort to complete the activity 1 Dependent. The helper does all the effort to complete an activity 7 Patient refused to complete or attempt activity 9 The patient did not perform the activity before the current illness or injury 88 Not attempted due to Medical conditions or safety concerns Transfers (B, C, W/C) (FIM): 4 Sit to/from Stand: 4 Bed to/from Chair: 4 CGA required for transfers to ensure safety. Weight Bearing Right Lower Extremity: Right Full Weight Bearing Left Lower Extremity: Left Full Weight Bearing Gait Training Does the Patient Walk?: Yes Gait (FIM): 4 Distance: 150 feet x1, 200 feet x1 Gait Level of Assist: 4 Gait Persons Needed: 1 Gait Assistive Device: Walker Wale Knee immobilizer and AFO on the LLE. Pt raises R heel to clear and advance the LLE. Min assist for balance and weight shifting. Wheelchair Training Does the Pt Use a Wheelchair?: Yes Treatments Pt performed gait training and bed mobility. Assessment Current Status: Good Progress, Fair Progress Pt ambulated for 150 feet until needing a break due to losing proper technique and fatigue. Pt is not yet able to ambulate without raising the R heel to assist with advancing the LLE. PT Short Term Goals Short Term Goals Time Frame: Mar 22, 2017 Gait (FIM): 2 Distance (FIM): 1=up to 49 ft Gait Assistive Device: Walker Wale Wheelchair (FIM): 6 (met) Wheelchair distance (FIM): 3=150 ft Wheelchair Distance: 1000', 200' PT Biometric Technician Goals Long-Term Goals PT Long-Term Goals Time Frame: Apr 05, 2017 Transfers (B,C,W/C) (FIM): 6 Sit to Lying (QC): 6 Lying-Sitting on Side/Bed(QC): 6 Sit to Stand (QC): 6 Rollin Roll Left to Right (QC): 6 Chair/Cis-wn-Kplzv Xfer(QC): 6 Car Transfer (QC): 5 Does the Patient Walk: No and Walking Goal IS indicated Gait (FIM): 5 Gait distance (FIM): 3=150 ft Walk 10 feet (QC): 5 Walk 10ft-Uneven Surface(QC): 5 Walk 50ft with 2 Turns (QC): 5 Walk 150 ft (QC): 5 Gait Level of Assist: 5 Gait Assistive Device: Walker Wale Does the Pt use WC or Scooter?: Yes Wheelchair (FIM): 6 Wheelchair distance (FIM): 3=150 ft Wheel 50 feet with 2 turns (QC: 6 Stairs (FIM): 2 # of Steps: 4 1 Step (curb) (QC): 4 4 Steps (QC): 4 12 Steps (QC): 88 Picking up an Object (QC): 88 PT Plan Problem List Problem List: Activity Tolerance, Functional Strength, Safety, Balance, Gait, Transfer, Bed Mobility, ROM Treatment/Plan Treatment Plan: Continue Plan of Care Treatment Plan: Bed Mobility, Education, Functional Activity Curtis, Functional Strength, Group Therapy, Gait, Safety, Therapeutic Exercise, Transfers Treatment Duration: Apr 05, 2017 Frequency: At least 5 of 7 days/Wk (IRF) Estimated Hrs Per Day: 1.5 hours per day Patient and/or Family Agrees t: Yes Safety Risks/Education Patient Education: Gait Training, Transfer Techniques, Correct Positioning, Safety Issues Teaching Recipient: Patient Teaching Methods: Demonstration, Discussion Response to Teaching: Reinforcement Needed Time/GCodes Time In: 1400 Time Out: 1430 Total Billed Treatment Time: 30 Total Billed Treatment 1 visit 30 min GT MARJ FARIA PT Apr 06, 2017 14:47
[2017-04-06 18:23] VITALS: BP 120/67
[2017-04-06] MEDS: ATORVASTATIN 40 MG (LIPITOR) TABLET PO SCH (20:18)
[2017-04-07 06:02] VITALS: BP 127/78
[2017-04-07] MEDS: GLIMEPIRIDE 2 MG (AMARYL) TAB PO SCH (06:13)
[2017-04-07] MEDS: metFORMIN 500 MG (GLUCOPHAGE) TAB PO SCH ×2 (06:13→17:13)
[2017-04-07] MEDS: CLOPIDOGREL 75 MG (PLAVIX) TABLET PO SCH (08:11)
[2017-04-07] MEDS: lisINopril 10 MG (PRINIVIL) TABLET PO SCH (08:11)
--- NOTE | 2017-04-07 08:20 | PM & R (SOAP) Progress Note ---
Subjective Time Seen by Provider: 07:35 Subjective/Events-last exam Patient was seen on unit this AM-Up in W/C Patient min assist for transfers.Patient looking forward to discharge this Wednesday the Objective Exam Last Set of Vital Signs Vital Signs Date Time Temp Pulse Resp B/P (MAP) Pulse Ox O2 Delivery O2 Flow Rate FiO2 04/07/17 06:02 97.1 77 18 127/78 (94) 96 Room Air Capillary Refill : Less Than 3 Seconds I&O Intake and Output 04/07/17 00:00 Intake Total 1940 ml Balance 1940 ml Intake Oral 1940 ml # Voids 4 # Bowel Movements 1 General: Alert, Oriented X3, Cooperative, No Acute Distress HEENT: Atraumatic, PERRLA, EOMI, Mucous Memb Moist/[place] Neck: Supple, No JVD Lungs: Clear to Auscultation Heart: Regular Rate Abdomen: Normal Bowel Sounds, Soft, No Tenderness Extremities: No Edema Neuro: Other (Left LE flaccid with trace return LUE) Psych/Mental Status: Mental Status NL Results Lab Laboratory Tests 04/04/17 16:18: Glucometer 116H 04/05/17 05:14: Glucometer 115H 04/05/17 17:02: Glucometer 91 04/06/17 05:43: Glucometer 129H 04/06/17 15:30: Glucometer 86 04/07/17 05:25: Glucometer 108 Assessment/Plan Assessment Rt MCA CVA with Left HP HTN controlled DM2 controlled Tobacco abuse declines Patch 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 GERD without espohagitis AAA without rupture Mild nausea-Zofran ordered prn-improved Constipation meds to be adjusted as needed-improved had BM Plan Continue PT/OT ST has assessed and signed off Decreased Accucheks as per above-stable Patient has 2 sons and a daughter in this area to help out upon discharge Zofran for nausea-improved Current meds reviewed Accucheks noted Appreciate ABD Xray results Adjust meds for constipation as needed TLOA (DAY PASS) this past weekend went well patient visited his home Next Team Conference this afternoon See report for full functional update and POC Discharge remains set tetatively for 04-09-17 NNEKA MARTIN MD Apr 07, 2017 08:20
--- NOTE | 2017-04-07 08:25 | Physical Therapy Daily Note ---
PT Daily Note-Current Subjective Pt is sitting in [facility] in room pre tx and has no complaints of pain. Pt agrees to PT. Pain Numeric Pain Scale: 0-No Pain Location: No Pain Reported Appearance Pt is sitting in [facility] post tx with all needs met at this time. Nurse call, phone , and tray within reach. Mental Status Patient Orientation: Normal For Age Transfers Functional [place] Measure 0=Not Assessed/NA 4=Minimal Assistance 1=Total Assistance 5=Supervision or Setup 2=Maximal Assistance 6=Modified [place] 3=Moderate Assistance 7=Complete IndependenceIRFPAI Quality Coding Scale 6 Independent with activity with or without an assistive device 5 Patient requires set up or clean up by helper. Patient completes activity by themselves 4 Supervision or touching assist (CGA). [place] provide cues , steadying assist 3 The helper provides less than half the effort to complete the activity 2 The helper provides more than half the effort to complete the activity 1 Dependent. The helper does all the effort to complete an activity 7 Patient refused to complete or attempt activity 9 The patient did not perform the activity before the current illness or injury 88 Not attempted due to Medical conditions or safety concerns Transfers (B, C, W/C) (FIM): 4 Scootin Rollin Supine to/from Sit: 5 Sit to/from Stand: 4 Bed to/from Chair: 4 SBA required for bed mobility and CGA needed for transfers. Verbal cues needed for weight shifting. Weight Bearing Right Lower Extremity: Right Full Weight Bearing Left Lower Extremity: Left Full Weight Bearing Gait Training Does the Patient Walk?: Yes Gait (FIM): 4 Distance: 150 feet x2 Gait Level of Assist: 4 Gait Persons Needed: 1 Gait Assistive Device: Walker Wale Knee immobilizer and AFO used on the LLE. Pt vaults on the RLE in order to assist in swing of the LLE. Manual cues needed to promote weight shift. Wheelchair Training Does the Pt Use a Wheelchair?: Yes Exercises Seated Therapy Exercises: Sit to stand (5 x1 with manual cues to extend L knee) , Long arc quads (6 x2 with active assistance) NuStep Minutes: 15 NuStep Workload: 5 (5 for 7 min, 6 for 8 min) Treatments Pt performed gait training, LE exercise, functional activity, bed mobility. Assessment Current Status: Fair Progress Pt now requires supervision for all bed mobility. Pt ambulation is becoming more smooth with less frequent large steps with the LLE. Manual cues needed for weight shifting during ambulation. PT Short Term Goals Short Term Goals Time Frame: Mar 22, 2017 Gait (FIM): 2 Distance (FIM): 1=up to 49 ft Gait Assistive Device: Walker Wale Wheelchair (FIM): 6 (met) Wheelchair distance (FIM): 3=150 ft Wheelchair Distance: 1000', 200' PT Wet Pan Mixer Goals Fci Goals PT Wet Pan Mixer Goals Time Frame: Apr 05, 2017 Transfers (B,C,W/C) (FIM): 6 Sit to Lying (QC): 6 Lying-Sitting on Side/Bed(QC): 6 Sit to Stand (QC): 6 Rollin Roll Left to Right (QC): 6 Chair/Xed-ct-Knvea Xfer(QC): 6 Car Transfer (QC): 5 Does the Patient Walk: No and Walking Goal IS indicated Gait (FIM): 5 Gait distance (FIM): 3=150 ft Walk 10 feet (QC): 5 Walk 10ft-Uneven Surface(QC): 5 Walk 50ft with 2 Turns (QC): 5 Walk 150 ft (QC): 5 Gait Level of Assist: 5 Gait Assistive Device: Walker Wale Does the Pt use WC or Scooter?: Yes Wheelchair (FIM): 6 Wheelchair distance (FIM): 3=150 ft Wheel 50 feet with 2 turns (QC: 6 Stairs (FIM): 2 # of Steps: 4 1 Step (curb) (QC): 4 4 Steps (QC): 4 12 Steps (QC): 88 Picking up an Object (QC): 88 PT Plan Problem List Problem List: Activity Tolerance, Functional Strength, Safety, Balance, Gait, Transfer, Bed Mobility, ROM Treatment/Plan Treatment Plan: Continue Plan of Care Treatment Plan: Bed Mobility, Education, Functional Activity Curtis, Functional Strength, Group Therapy, Gait, Safety, Therapeutic Exercise, Transfers Treatment Duration: Apr 05, 2017 Frequency: At least 5 of 7 days/Wk (IRF) Estimated Hrs Per Day: 1.5 hours per day Patient and/or Family Agrees t: Yes Safety Risks/Education Patient Education: Gait Training, Transfer Techniques, Correct Positioning, W/ C Management, Reviewed Don/Doff Brace, Safety Issues Teaching Recipient: Patient Teaching Methods: Demonstration, Discussion Response to Teaching: Reinforcement Needed Time/GCodes Time In: 800 Time Out: 900 Total Billed Treatment Time: 60 Total Billed Treatment 1 visit 20 min GT 25 min EX 15 min MARJ LARSEN PT Apr 07, 2017 08:25
--- NOTE | 2017-04-07 08:36 | Progress Note (SOAP) ---
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 Patient working hard. Patient has no complaints. 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 Hypertension. Hyperlipidemia. Tobacco usage. Abdominal aortic aneurysm. GERD . 03/10/17. 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 Hypertension. Hyperlipidemia. Tobacco usage. Patient working hard and moving left arm today. . 03/11/17. 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 Hypertension. Hyperlipidemia. Tobacco usage. Patient working hard and improving. . 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 Hypertension. Hyperlipidemia Tobacco usage. Patient stomach doing better . 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 nauseous. Hypertension. Hyperlipidemia. Tobacco usage. . 03/16/17. 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 Hypertension. Constipation. Hyperlipidemia. Tobacco usage... . . / . 03/17/17. 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 Hypertension. Constipation. Hyperlipidemia. Patient seems positive. Patient working hard . 03/18/17. 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 Hypertension. Did not have a bowel movement today. Hyperlipidemia. Patient working on walking. . 03/19/17. 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 Hypertension. Hyperlipidemia. Constipation resolved. . 03/22/17. 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 Hypertension. Hyperlipidemia. Patient doing better with left upper extremity and left lower extremity. . 03/23. 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 Hypertension.. patient doing better with upper extremity than lower extremity and left. . 03/24/17. 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 Hypertension. Patient improving with left upper extremity. . 03/25/17. 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 Hypertension. Patient doing better with his left upper extremity. . 03/26/17. 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 Hypertension. Left lower extremity having problems. . 03/29/17. 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 Hypertension. Patient still needs work. . 03/30/17. 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 Hypertension. Diabetes under good control. Patient making slow progress but improving. . 03/31/17. 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 Hypertension good control. Diabetes good. For patient to walk needs somebody to help hold him up. . 04/01/17. 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 Patient has trouble getting around on the left side when he walks. Patient unstable. . 04/02/17. 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 Patient doing good in wheelchair. Patient unstable when he walks area Patient's left upper extremity doing better. . 04/05/17. 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 Patient standing up a little better . . 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 Patient be discharged Wednesday. 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 . . 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 Patient working on bicycle today. Clinical Quality Measures DVT/VTE Risk/Contraindication: Risk Factor Score Per Nursin RFS Level Per Nursing on Admit: 4+=Very High JAIME ROBERSON DO Apr 07, 2017 08:36
--- NOTE | 2017-04-07 10:31 | Physical Therapy Daily Note ---
PT Daily Note-Current Subjective Pt. states he did a lot of w/c mobility yesterday and today feels some soreness in his chest. 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 Pain Numeric Pain Scale: 3 Location: Medial Location Body Site: Chest (ribcage) Pain Description: Ache Mental Status Patient Orientation: Normal For Age Transfers Functional [place] Measure 0=Not Assessed/NA 4=Minimal Assistance 1=Total Assistance 5=Supervision or Setup 2=Maximal Assistance 6=Modified [place] 3=Moderate Assistance 7=Complete IndependenceIRFPAI Quality Coding Scale 6 Independent with activity with or without an assistive device 5 Patient requires set up or clean up by helper. Patient completes activity by themselves 4 Supervision or touching assist (CGA). [place] provide cues , steadying assist 3 The helper provides less than half the effort to complete the activity 2 The helper provides more than half the effort to complete the activity 1 Dependent. The helper does all the effort to complete an activity 7 Patient refused to complete or attempt activity 9 The patient did not perform the activity before the current illness or injury 88 Not attempted due to Medical conditions or safety concerns Transfers (B, C, W/C) (FIM): 5 Scootin Rollin Supine to/from Sit: 6 Sit to/from Stand: 6 Bed to/from Chair: 5 Weight Bearing Right Lower Extremity: Right Full Weight Bearing Left Lower Extremity: Left Full Weight Bearing Gait Training Does the Patient Walk?: No and Walking Goal NOT indicated Wheelchair Training Does the Pt Use a Wheelchair?: Yes Wheelchair (FIM): 6 Wheelchair Distance: 3=150 ft (300plus) Wheelchair Level of Assist: 6 Type of Wheelchair: Manual practiced using single foot for w/c mob Exercises Supine Ex: Ankle pumps (left), Quad Set (left), Rolling, Glut sets, Heel Slides , Short Arc Quads (left), Scooting, Straight leg raise, Hip abd/add Supine Reps: 20 Assessment Current Status: Good Progress PT Short Term Goals Short Term Goals Time Frame: Mar 22, 2017 Gait (FIM): 2 Distance (FIM): 1=up to 49 ft Gait Assistive Device: Walker Wale Wheelchair (FIM): 6 (met) Wheelchair distance (FIM): 3=150 ft Wheelchair Distance: 1000', 200' PT Group Home Goals Human Resource Analyst Goals PT Human Resource Analyst Goals Time Frame: Apr 05, 2017 Transfers (B,C,W/C) (FIM): 6 Sit to Lying (QC): 6 Lying-Sitting on Side/Bed(QC): 6 Sit to Stand (QC): 6 Rollin Roll Left to Right (QC): 6 Chair/Wgw-lj-Omkcc Xfer(QC): 6 Car Transfer (QC): 5 Does the Patient Walk: No and Walking Goal IS indicated Gait (FIM): 5 Gait distance (FIM): 3=150 ft Walk 10 feet (QC): 5 Walk 10ft-Uneven Surface(QC): 5 Walk 50ft with 2 Turns (QC): 5 Walk 150 ft (QC): 5 Gait Level of Assist: 5 Gait Assistive Device: Walker Wale Does the Pt use WC or Scooter?: Yes Wheelchair (FIM): 6 Wheelchair distance (FIM): 3=150 ft Wheel 50 feet with 2 turns (QC: 6 Stairs (FIM): 2 # of Steps: 4 1 Step (curb) (QC): 4 4 Steps (QC): 4 12 Steps (QC): 88 Picking up an Object (QC): 88 PT Plan Treatment/Plan Treatment Plan: Continue Plan of Care Treatment Plan: Bed Mobility, Education, Functional Activity Curtis, Functional Strength, Group Therapy, Gait, Safety, Therapeutic Exercise, Transfers Treatment Duration: Apr 05, 2017 Frequency: At least 5 of 7 days/Wk (IRF) Estimated Hrs Per Day: 1.5 hours per day Patient and/or Family Agrees t: Yes Safety Risks/Education Patient Education: Transfer Techniques, Correct Positioning, W/C Management, Disease Process, Safety Issues Teaching Recipient: Patient Teaching Methods: Demonstration, Discussion Response to Teaching: Verbalize Understanding, Return Demonstration, Reinforcement Needed Time/GCodes Time In: 1000 Time Out: 1030 JONG PRIEST PTA Apr 07, 2017 10:31
--- NOTE | 2017-04-07 12:53 | Occupational Ther Daily Note ---
OT Current Status-Daily Note Subjective Pt sitting in w/c, agrees to treatment. No c/o pain Mental Status/Objective Functional [place] Measure 0=Not Assessed/NA 4=Minimal Assistance 1=Total Assistance 5=Supervision or Setup 2=Maximal Assistance 6=Modified [place] 3=Moderate Assistance 7=Complete [place] ADL-Treatment Pt declined shower, states he will wait until tomorrow. Declined other ADLs at this time. Functional [place] Measure 0=Not Assessed/NA 4=Minimal Assistance 1=Total Assistance 5=Supervision or Setup 2=Maximal Assistance 6=Modified [place] 3=Moderate Assistance 7=Complete IndependenceIRFPAI Quality Coding Scale 6 Independent with activity with or without an assistive device 5 Patient requires set up or clean up by helper. Patient completes activity by themselves 4 Supervision or touching assist (CGA). [place] provide cues , steadying assist 3 The helper provides less than half the effort to complete the activity 2 The helper provides more than half the effort to complete the activity 1 Dependent. The helper does all the effort to complete an activity 7 Patient refused to complete or attempt activity 9 The patient did not perform the activity before the current illness or injury 88 Not attempted due to Medical conditions or safety concerns Other Treatment W/c mobility to therapy gym without assist. Arm bike x10 minutes to increase overall strength and activity tolerance needed for functional task completion. Pt able to maintain grasp with left hand for first 5 minutes, but then lost his grab jack worker 3 times during the last five minutes. Pt used left UE to grasp and stack cones. Pt has some difficulty with task secondary to decreased shoulder movement , but is able to complete activity with increased time. Pt completed putty activity with left hand to increase strength and coordination skills. Pt able to remove small beads from putty using left hand with increased time. Graded clothespins with left hand to increase reaching and grab jack worker strength. Pt able to remove all clothespins with increased time. Pt able to replace all clothespins except maximal resistance ones with left hand. Pt sitting in w/c with needs met after session. OT Short Term Goals Short Term Goals Time Frame: Mar 22, 2017 Grooming(FIM): 5 Bathing(FIM): 4 Toileting(FIM): 3 Toilet/Commode Transfer(FIM): 4 Additional Short Term Goals: 2-Verbalize Understanding, 3-ImproveStrength/Curtis 1=Demonstrate adherence to instructed precautions during ADL tasks. 2=Patient will verbalize/demonstrate understanding of assistive devices/ modifications for ADL. 3=Patient will improve strength/tolerance for activity to enable patient to perform ADL's. OT Supervisor Border Department Goals Supervisor Border Department Goals Time Frame: Apr 05, 2017 Eating (FIM): 6 Eating (QC): 6 Groomin Oral Hygiene (QC): 6 Bathing(FIM): 5 Shower/Bathe Self (QC): 5 Upper Body Dressing(FIM): 6 Upper Body Dressing (QC): 6 Lower Body Dressing(FIM): 5 Lower Body Dressing (QC): 5 On/Off Footwear (QC): 5 Toileting(FIM): 5 Toileting Hygiene (QC): 5 Toilet/Commode Transfer(FIM): 5 Toilet/Commode Transfer (QC): 5 Shower Transfer(FIM): 5 Additional Goals: 2-Verbalize Understanding, 3-ImproveStrength/Curtis 1=Demonstrate adherence to instructed precautions during ADL tasks. 2=Patient will verbalize/demonstrate understanding of assistive devices/ modifications for ADL. 3=Patient will improve strength/tolerance for activity to enable patient to perform ADL's. OT Education/Plan Problem List/Assessment Pt would benefit from skilled OT to increase his independence in basic self care and to decrease caregiver burden. Discharge Recommendations Plan/Recommendations: Continue POC Treatment Plan/Plan of Care Patient would benefit from OT for education, treatment and training to promote independence in ADL's, mobility, safety and/or upper extremity function for ADL' s. Plan of Care: ADL Retraining, Functional Mobility, Group Exercise/Act as Ind ( educaiton, exercise, activity tolerance, functional acitivites, socialization), UE Funct Exercise/Act, UE Neuromus Re-Ed/Coord, W/C Management Training Treatment Duration: Apr 05, 2017 Frequency: At least 5 of 7 days/Wk (IRF) Estimated Hrs Per Day: 1.5 hours per day Agreement: Yes Rehab Potential: Good Time/GCodes Start Time: 10:30 Stop Time: 11:30 Total Time Billed (hr/min): 60 Billed Treatment Time 1 visit, EXx4(60minutes) SANDRA BURCH OT Apr 07, 2017 12:53
--- NOTE | 2017-04-07 14:53 | Therapy Group Daily Note ---
Therapy Daily Group Note Patient Education Topic Home Safety, Fall Prevention Other/Notes Pt was an active participant in OT/PT group. He contributed to discussion/ patient education on home safety and fall prevention, and was able to identify ways that he has modified his home or activities for safety. He was able to tolerate participating during the entire group. He propelled his w/c to the group without assistance and chose to stay up in the [facility] area after group, all needs met. Start Time: 13:00 Stop Time: 14:20 Total Billed Treatment Time: 80 Total Billed Treatment visit, 80 minutes group ROSY CHAVES OT Apr 07, 2017 14:53
[2017-04-07 18:00] VITALS: BP 106/73
[2017-04-07] MEDS: ATORVASTATIN 40 MG (LIPITOR) TABLET PO SCH (20:28)
[2017-04-08 06:00] VITALS: BP 104/68
[2017-04-08] MEDS: GLIMEPIRIDE 2 MG (AMARYL) TAB PO SCH (06:15)
[2017-04-08] MEDS: metFORMIN 500 MG (GLUCOPHAGE) TAB PO SCH ×2 (06:15→17:03)
--- NOTE | 2017-04-08 07:31 | Occupational Ther Daily Note ---
OT Current Status-Daily Note Subjective Pt alert, sitting in recliner. Pt agreed to therapy. No c/o pain. Mental Status/Objective Functional [place] Measure 0=Not Assessed/NA 4=Minimal Assistance 1=Total Assistance 5=Supervision or Setup 2=Maximal Assistance 6=Modified [place] 3=Moderate Assistance 7=Complete [place] ADL-Treatment Functional [place] Measure 0=Not Assessed/NA 4=Minimal Assistance 1=Total Assistance 5=Supervision or Setup 2=Maximal Assistance 6=Modified [place] 3=Moderate Assistance 7=Complete IndependenceIRFPAI Quality Coding Scale 6 Independent with activity with or without an assistive device 5 Patient requires set up or clean up by helper. Patient completes activity by themselves 4 Supervision or touching assist (CGA). [place] provide cues , steadying assist 3 The helper provides less than half the effort to complete the activity 2 The helper provides more than half the effort to complete the activity 1 Dependent. The helper does all the effort to complete an activity 7 Patient refused to complete or attempt activity 9 The patient did not perform the activity before the current illness or injury 88 Not attempted due to Medical conditions or safety concerns Eating (FIM): 5 (Pt does open most containers/packages though does have difficulty with tearing open occasionally and requires assistance.) Eating (QC): 5 Grooming (FIM): 6 (At w/c level, pt able to complete by self.) Oral Hygiene (QC): 6 Bathing (FIM): 4 (Using shower bench, grabbar, long handle sponge and hand held shower. Pt is able to complete all bathing except buttocks. Pt pulled to stand with grabbars then assist to cleanse buttocks. Pt dried all areas.) Bathing Location: L Arm, R Arm, L Upper Leg, R Upper Leg, L Lower Leg ( including foot), R Lower Leg (including foot), Chest, Abdomen, Perineal Area Shower/Bathe Self (QC): 3 Upper Body (FIM): 6 (Retrieves clothing at w/c level, pt completes all by self. ) Upper Body Dressing (QC): 6 Lower Body Dressing (FIM): 4 (Retrieves clothing at w/c level. Pt is able to don/doff all clothing over feet. Assist to hike pants over hips.) Lower Body Dressing (QC): 3 On/Off Footwear (QC): 6 Toileting (FIM): 4 (Pt pulls to stand and assist to hike pants over hips. Cleanses self sitting on toilet.) Toileting Hygiene (QC): 3 Toilet/Commode Transfer (FIM): 4 (CGA using grabbar and BSC to elevate toilet. Pt is able to pull to stand with grabbar and pivot to toilet holding onto grabbar.) Toilet Transfer (QC): 3 Shower Transfer(FIM): 4 (Using shower bench, grabbar and w/c pt is able to complete transfer toward L side with CGA and SBA for transfer to R side.) Other Treatment Pt then maneuvered w/c to therapy gym. Arm bike 15 min duration at 20 spaulding resistance to increase AROM and strengthening for daily functional tasks. Pt able to linesperson L handle throughout exercise. Pt then complete UE exercises with dowel paige against gravity, 1 set 10 reps. After therapy, pt maneuvered w/c to [facility]. All needs met in room. OT Short Term Goals Short Term Goals Time Frame: Mar 22, 2017 Grooming(FIM): 5 Bathing(FIM): 4 Toileting(FIM): 3 Toilet/Commode Transfer(FIM): 4 Additional Short Term Goals: 2-Verbalize Understanding, 3-ImproveStrength/Curtis 1=Demonstrate adherence to instructed precautions during ADL tasks. 2=Patient will verbalize/demonstrate understanding of assistive devices/ modifications for ADL. 3=Patient will improve strength/tolerance for activity to enable patient to perform ADL's. OT Detention Goals Detention Goals Time Frame: Apr 05, 2017 Eating (FIM): 6 (not met) Eating (QC): 6 (not met) Groomin (met-04/08/2017) Oral Hygiene (QC): 6 (met-04/08/2017) Bathing(FIM): 5 (not met) Shower/Bathe Self (QC): 5 (not met) Upper Body Dressing(FIM): 6 (met-04/08/2017) Upper Body Dressing (QC): 6 (met-04/08/2017) Lower Body Dressing(FIM): 5 (not met) Lower Body Dressing (QC): 5 (not met) On/Off Footwear (QC): 5 (met-04/08/2017) Toileting(FIM): 5 (not met) Toileting Hygiene (QC): 5 (not met) Toilet/Commode Transfer(FIM): 5 (not met) Toilet/Commode Transfer (QC): 5 (not met) Shower Transfer(FIM): 5 (not met) Additional Goals: 2-Verbalize Understanding, 3-ImproveStrength/[place] 1=Demonstrate adherence to instructed precautions during ADL tasks. 2=Patient will verbalize/demonstrate understanding of assistive devices/ modifications for ADL. 3=Patient will improve strength/tolerance for activity to enable patient to perform ADL's. OT Education/Plan Problem List/Assessment Pt would benefit from skilled OT to increase his independence in basic self care and to decrease caregiver burden. Discharge Recommendations Plan/Recommendations: Continue POC Treatment Plan/Plan of Care Patient would benefit from OT for education, treatment and training to promote independence in ADL's, mobility, safety and/or upper extremity function for ADL' s. Plan of Care: ADL Retraining, Functional Mobility, Group Exercise/Act as Ind ( educaiton, exercise, activity tolerance, functional acitivites, socialization), UE Funct Exercise/Act, UE Neuromus Re-Ed/Coord, W/C Management Training Treatment Duration: Apr 05, 2017 Frequency: At least 5 of 7 days/Wk (IRF) Estimated Hrs Per Day: 1.5 hours per day Agreement: Yes Rehab Potential: Good Time/GCodes Start Time: 07:00 Stop Time: 08:00 Total Time Billed (hr/min): 60 Billed Treatment Time 1 visit-ADL 3 (40 min) EX 1 (20 min) AARTI STARR Apr 08, 2017 07:31
[2017-04-08] MEDS: CLOPIDOGREL 75 MG (PLAVIX) TABLET PO SCH (08:39)
[2017-04-08] MEDS: lisINopril 10 MG (PRINIVIL) TABLET PO SCH (08:39)
--- NOTE | 2017-04-08 08:47 | Progress Note (SOAP) ---
Subjective Time Seen by Provider: 08:47 Subjective/Events-last exam patient improving. 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 Hypertension. Hyperlipidemia. Tobacco usage. Abdominal aortic aneurysm. GERD . 03/10/17. 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 Hypertension. Hyperlipidemia. Tobacco usage. Patient working hard and moving left arm today. . 03/11/17. 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 Hypertension. Hyperlipidemia. Tobacco usage. Patient working hard and improving. . 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 Hypertension. Hyperlipidemia Tobacco usage. Patient stomach doing better . 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 nauseous. Hypertension. Hyperlipidemia. Tobacco usage. . 03/16/17. 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 Hypertension. Constipation. Hyperlipidemia. Tobacco usage... . . / . 03/17/17. 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 Hypertension. Constipation. Hyperlipidemia. Patient seems positive. Patient working hard . 03/18/17. 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 Hypertension. Did not have a bowel movement today. Hyperlipidemia. Patient working on walking. . 03/19/17. 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 Hypertension. Hyperlipidemia. Constipation resolved. . 03/22/17. CVA on left. Hypertension. Hyperlipidemia. Patient doing better with left upper extremity and left lower extremity. . 03/23. CVA on left. Hypertension.. patient doing better with upper extremity than lower extremity and left. . 03/24/17. CVA on left. Hypertension. Patient improving with left upper extremity. . 03/25/17. CVA on left. Hypertension. Patient doing better with his left upper extremity. . 03/26/17. CVA on left. Hypertension. Left lower extremity having problems. . 03/29/17. CVA on left. Hypertension. Patient still needs work. . 03/30/17. CVA on left. Hypertension. Diabetes under good control. Patient making slow progress but improving. . 03/31/17. CVA on left. Hypertension good control. Diabetes good. For patient to walk needs somebody to help hold him up. . 04/01/17. CVA on left. Patient has trouble getting around on the left side when he walks. Patient unstable. . 04/02/17. CVA on left. Patient doing good in wheelchair. Patient unstable when he walks area Patient's left upper extremity doing better. . 04/05/17. CVA on left. Patient standing up a little better . . CVA on left. Patient be discharged Wednesday. 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 . . CVA on left. Patient working on bicycle today. . 04/08/17. CVA on left. Patient improving Clinical Quality Measures DVT/VTE Risk/Contraindication: Risk Factor Score Per Nursin RFS Level Per Nursing on Admit: 4+=Very High JAIME ROBERSON DO Apr 08, 2017 08:47
--- NOTE | 2017-04-08 08:59 | PM & R (SOAP) Progress Note ---
Subjective Time Seen by Provider: 07:45 Subjective/Events-last exam Patient was seen on unit this AM Patient Modified Independent for Upper body dressing and mod assist for lower body dressing, Objective Exam Last Set of Vital Signs Vital Signs Date Time Temp Pulse Resp B/P (MAP) Pulse Ox O2 Delivery O2 Flow Rate FiO2 04/08/17 06:00 97.8 73 18 104/68 (80) 98 Room Air Capillary Refill : Less Than 3 Seconds I&O Intake and Output 04/08/17 00:00 Intake Total 1100 ml Balance 1100 ml Intake Oral 1100 ml # Voids 5 # Bowel Movements 1 General: Alert, Oriented X3, Cooperative, No Acute Distress HEENT: Atraumatic, PERRLA, EOMI, Mucous Memb Moist/[place] Neck: Supple, No JVD Lungs: Clear to Auscultation Heart: Regular Rate Abdomen: Normal Bowel Sounds, Soft, No Tenderness Extremities: No Edema Neuro: Other (Left LE flaccid with trace return LUE) Psych/Mental Status: Mental Status NL Results Lab Laboratory Tests 04/05/17 17:02: Glucometer 91 04/06/17 05:43: Glucometer 129H 04/06/17 15:30: Glucometer 86 04/07/17 05:25: Glucometer 108 04/07/17 16:22: Glucometer 141H 04/08/17 04:48: Glucometer 99 Assessment/Plan Assessment Rt MCA CVA with Left HP HTN controlled DM2 controlled Tobacco abuse declines Patch 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 GERD without espohagitis AAA without rupture Mild nausea-Zofran ordered prn-improved Constipation meds to be adjusted as needed-improved had BM Plan Continue PT/OT ST has assessed and signed off Decreased Accucheks as per above-stable Patient has 2 sons and a daughter in this area to help out upon discharge Zofran for nausea-improved Current meds reviewed Accucheks noted Appreciate ABD Xray results Adjust meds for constipation as needed TLOA (DAY PASS) this past weekend went well patient visited his home Team Conference held yesterday- See report for full functional update and POC Discharge remains set for tomorrow 04-09-17 to home with HHC and family Current meds reviewed NNEKA MARTIN MD Apr 08, 2017 08:59
--- NOTE | 2017-04-08 09:00 | Physical Therapy Daily Note ---
PT Daily Note-Current Subjective Pt is sitting in [facility] in visiting area with no complaints of pain. Pt agrees to PT. Pain Numeric Pain Scale: 0-No Pain Location: No Pain Reported Appearance Pt is sitting in [facility] in visiting area with all needs met at this time. Pt is mod I in [facility] and can use nurse call, phone, and tray if necessary. Mental Status Patient Orientation: Normal For Age Transfers Functional [place] Measure 0=Not Assessed/NA 4=Minimal Assistance 1=Total Assistance 5=Supervision or Setup 2=Maximal Assistance 6=Modified [place] 3=Moderate Assistance 7=Complete IndependenceIRFPAI Quality Coding Scale 6 Independent with activity with or without an assistive device 5 Patient requires set up or clean up by helper. Patient completes activity by themselves 4 Supervision or touching assist (CGA). [place] provide cues , steadying assist 3 The helper provides less than half the effort to complete the activity 2 The helper provides more than half the effort to complete the activity 1 Dependent. The helper does all the effort to complete an activity 7 Patient refused to complete or attempt activity 9 The patient did not perform the activity before the current illness or injury 88 Not attempted due to Medical conditions or safety concerns Transfers (B, C, W/C) (FIM): 4 Scootin Rollin Roll Left to Right (QC): 6 Supine to/from Sit: 7 Sit to/from Stand: 4 Sit to Lying (QC): 6 Sit to Stand (QC): 4 Chair/Hcc-ex-Ictrn Xfer(QC): 4 Bed to/from Chair: 4 Car Transfer (QC): 4 Min A needed for car transfer, CGA needed for sit to stand and bed to chair transfer, Mod I to I in bed mobility. Weight Bearing Right Lower Extremity: Right Full Weight Bearing Left Lower Extremity: Left Full Weight Bearing Gait Training Does the Patient Walk?: Yes Gait (FIM): 4 Distance: 150 feet Walk 10 feet (QC): 3 Walk 50 ft with 2 Turns(QC): 3 Walk 150 ft (QC): 3 Gait Level of Assist: 4 Gait Persons Needed: 1 Gait Assistive Device: Walker Wale Knee immobilizer and AFO on the LLE. Pt continues to vault but less often and min A for weight shifts to R needed. Wheelchair Training Does the Pt Use a Wheelchair?: Yes Wheelchair (FIM): 6 Distance: 150 feet Wheelchair Level of Assist: 6 Wheel 50 ft with 2 turns (QC): 6 Wheel 150 ft (QC): 6 Type of Wheelchair: Manual Stair Training Stairs (FIM): 0 #of Steps: 0 1 Step (curb) (QC): 88 4 Steps (QC): 88 12 Steps (QC): 88 Stairs not performed due to safety concern Balance Picking up an Object (QC): 88 Exercises Seated Therapy Exercises: Sit to stand (5 x3 at differing heights), Long arc quads (10 x2 LLE with active assistance), Hip abd/add (10 x1 BLE) Chair to mat transfer to R and L: 5 x1 Treatments Pt performed gait training, bed mobility, functional mobility, WCH mobility, LE exercise. Assessment Current Status: Fair Progress Pt continues to vault on the RLE during ambulation but is occurring less frequently. Pt bed mobility is mod I to I and requires SBA for transfers. Pt not yet able to actively raise the LLE during LAQ. PT Short Term Goals Short Term Goals Time Frame: Mar 22, 2017 Gait (FIM): 2 Distance (FIM): 1=up to 49 ft Gait Assistive Device: Walker Wale Wheelchair (FIM): 6 (met) Wheelchair distance (FIM): 3=150 ft Wheelchair Distance: 1000', 200' PT Fpc Goals Fpc Goals PT Fire Equipment Repairer Inspector Goals Time Frame: Apr 05, 2017 Transfers (B,C,W/C) (FIM): 6 Sit to Lying (QC): 6 (met) Lying-Sitting on Side/Bed(QC): 6 (met) Sit to Stand (QC): 6 Rollin (met) Roll Left to Right (QC): 6 (met) Chair/Wvo-xj-Wfxxz Xfer(QC): 6 Car Transfer (QC): 5 Does the Patient Walk: No and Walking Goal IS indicated Gait (FIM): 5 Gait distance (FIM): 3=150 ft Walk 10 feet (QC): 5 Walk 10ft-Uneven Surface(QC): 5 Walk 50ft with 2 Turns (QC): 5 Walk 150 ft (QC): 5 Gait Level of Assist: 5 Gait Assistive Device: Walker Wale Does the Pt use WC or Scooter?: Yes Wheelchair (FIM): 6 (met) Wheelchair distance (FIM): 3=150 ft Wheel 50 feet with 2 turns (QC: 6 (met) Stairs (FIM): 2 # of Steps: 4 1 Step (curb) (QC): 4 4 Steps (QC): 4 12 Steps (QC): 88 Picking up an Object (QC): 88 PT Plan Problem List Problem List: Activity Tolerance, Functional Strength, Safety, Balance, Gait, Transfer, Bed Mobility, ROM Treatment/Plan Treatment Plan: Continue Plan of Care Treatment Plan: Bed Mobility, Education, Functional Activity Curtis, Functional Strength, Group Therapy, Gait, Safety, Therapeutic Exercise, Transfers Treatment Duration: Apr 05, 2017 Frequency: At least 5 of 7 days/Wk (IRF) Estimated Hrs Per Day: 1.5 hours per day Patient and/or Family Agrees t: Yes Safety Risks/Education Patient Education: Gait Training, Transfer Techniques, Correct Positioning, W/ C Management, Disease Process, Safety Issues Teaching Recipient: Patient Teaching Methods: Demonstration, Discussion Response to Teaching: Return Demonstration, Reinforcement Needed Time/GCodes Time In: 800 Time Out: 900 Total Billed Treatment Time: 60 Total Billed Treatment 1 visit 15 min GT 10 min WCH 15 min EX 20 min FA MARJ FARIA PT Apr 08, 2017 09:00
[2017-04-08] MEDS ORDERED: CLOP75TA28 PO (09:02)
--- NOTE | 2017-04-08 12:56 | Occupational Ther Daily Note ---
OT Current Status-Daily Note Subjective Pt sitting at [facility] table in w/c. Pt agreed to therapy. No c/o pain. Mental Status/Objective Functional [place] Measure 0=Not Assessed/NA 4=Minimal Assistance 1=Total Assistance 5=Supervision or Setup 2=Maximal Assistance 6=Modified [place] 3=Moderate Assistance 7=Complete [place] ADL-Treatment Functional [place] Measure 0=Not Assessed/NA 4=Minimal Assistance 1=Total Assistance 5=Supervision or Setup 2=Maximal Assistance 6=Modified [place] 3=Moderate Assistance 7=Complete IndependenceIRFPAI Quality Coding Scale 6 Independent with activity with or without an assistive device 5 Patient requires set up or clean up by helper. Patient completes activity by themselves 4 Supervision or touching assist (CGA). [place] provide cues , steadying assist 3 The helper provides less than half the effort to complete the activity 2 The helper provides more than half the effort to complete the activity 1 Dependent. The helper does all the effort to complete an activity 7 Patient refused to complete or attempt activity 9 The patient did not perform the activity before the current illness or injury 88 Not attempted due to Medical conditions or safety concerns Other Treatment Pt doffed/donned shirt by self for taping of L shldr. Taping completed due to subluxation of L shldr. Pt then completed dowel paige exercises against gravity to increase AROM of L shldr and UE strength. Pt then completed activity to work on dynamic sitting balance by leaning forward to grasp cone with L hand then cross midline to place on R side then back. Strengthening exercise for L hand completed, pt able to complete 5 prior to fatigue. R hand interactive art director strengthening, 30 sets without break. After therapy pt maneuvered w/c back to [facility] area. All needs met. OT Short Term Goals Short Term Goals Time Frame: Mar 22, 2017 Grooming(FIM): 5 Bathing(FIM): 4 Toileting(FIM): 3 Toilet/Commode Transfer(FIM): 4 Additional Short Term Goals: 2-Verbalize Understanding, 3-ImproveStrength/Curtis 1=Demonstrate adherence to instructed precautions during ADL tasks. 2=Patient will verbalize/demonstrate understanding of assistive devices/ modifications for ADL. 3=Patient will improve strength/tolerance for activity to enable patient to perform ADL's. OT Long-Term Goals Long-Term Goals Time Frame: Apr 05, 2017 Eating (FIM): 6 (not met) Eating (QC): 6 (not met) Groomin (met-04/08/2017) Oral Hygiene (QC): 6 (met-04/08/2017) Bathing(FIM): 5 (not met) Shower/Bathe Self (QC): 5 (not met) Upper Body Dressing(FIM): 6 (met-04/08/2017) Upper Body Dressing (QC): 6 (met-04/08/2017) Lower Body Dressing(FIM): 5 (not met) Lower Body Dressing (QC): 5 (not met) On/Off Footwear (QC): 5 (met-04/08/2017) Toileting(FIM): 5 (not met) Toileting Hygiene (QC): 5 (not met) Toilet/Commode Transfer(FIM): 5 (not met) Toilet/Commode Transfer (QC): 5 (not met) Shower Transfer(FIM): 5 (not met) Additional Goals: 2-Verbalize Understanding, 3-ImproveStrength/Curtis 1=Demonstrate adherence to instructed precautions during ADL tasks. 2=Patient will verbalize/demonstrate understanding of assistive devices/ modifications for ADL. 3=Patient will improve strength/tolerance for activity to enable patient to perform ADL's. OT Education/Plan Problem List/Assessment Pt would benefit from skilled OT to increase his independence in basic self care and to decrease caregiver burden. Discharge Recommendations Plan/Recommendations: Continue POC Treatment Plan/Plan of Care Patient would benefit from OT for education, treatment and training to promote independence in ADL's, mobility, safety and/or upper extremity function for ADL' s. Plan of Care: ADL Retraining, Functional Mobility, Group Exercise/Act as Ind ( educaiton, exercise, activity tolerance, functional acitivites, socialization), UE Funct Exercise/Act, UE Neuromus Re-Ed/Coord, W/C Management Training Treatment Duration: Apr 05, 2017 Frequency: At least 5 of 7 days/Wk (IRF) Estimated Hrs Per Day: 1.5 hours per day Agreement: Yes Rehab Potential: Good Time/GCodes Start Time: 12:25 Stop Time: 12:55 Total Time Billed (hr/min): 30 Billed Treatment Time 1 visit-NM 2 (30 min) AARTI STARR Apr 08, 2017 12:56
--- NOTE | 2017-04-08 13:59 | D/C HH Face to Face Order ---
D/C Face to Face Orders Instructions for Patient Patient Instructions/FollowUp: Dr. Rust/Any Parker NP 04/12/17 at 11:20 am Physician to follow Patient: Dr. Rust Discharge Diet for Home: other diet (60 CHO) Patient Data-Allergies,Ht & Wt Patient Allergies: Coded Allergies: Influenza Virus Vaccines (Verified Allergy, Unknown, 05/23/09) Uncoded Allergies: FLU SHOT (Allergy, Mild, 05/22/09) Height (Feet): 6 Height (Inches): 2.00 Weight (Pounds): 175 Weight (Ounces): 4.8 Home Health Need/Face to Face Date of Face to Face: Apr 09, 2017 Clinical Findings: Generalized weakness and fatigue, Instability, Muscle weakness, Unsteady gait I have seen Pt [id number]: Yes Discharged To: Home Diagnosis/Conditions: Right basal ganglia stroke Problems/Diagnosis/Condition: Patient is Homebound due to: [place] fall risk due to instabilty, Muscle weakness Homebound Status Due to the above stated illness, injury or surgical procedure (medical condition or diagnosis) and associated clinical findings, the patient is homebound because of his/her inability to leave home except with aid of a supportive device and/or person AND leaving the home requires a considerable and taxing effort or is medically contraindicated. Pt req the following assistanc: Aid of another person, Walker Home Health Nursing Orders Home Health Services Order: Nursing Services, Conservation Science Teacher-Evaluate & Treat, Physical Therapy-Evaluate & Treat Therapy Orders Therapy Orders: OT (must have SN or PT order), Physical Therapy Therapy Specific Orders: Eval assistive deivces, Teach enviro modifications/ safety, Gait training, Increase strength/endurance Certify Stmt I certify that this patient is under my care and that I, a nurse practitioner or a physician; a machine operator assistant working with me, had a face to face encounter that - meets the physician face to face encounter requirements with this patient as dated. I personally scribed for NNEKA MARTIN MD (ARIS) on 04/08/17 at 13:56. Electronically submitted by Elo Lopez ([email or web address]). I personally scribed for NNEKA MARTIN MD) on 04/08/17 at 13:59. Electronically submitted by Elo Lopez ([email or web address]). NNEKA MARTIN MD Apr 08, 2017 13:56
--- NOTE | 2017-04-08 15:27 | Physical Therapy Daily Note ---
PT Daily Note-Current Subjective Pt is sitting in [facility] in room pre tx and agrees to PT without complaints of pain. Pain Numeric Pain Scale: 0-No Pain Location: No Pain Reported Appearance Pt is laying in bed post tx with nurse call, phone, and tray within reach. Mental Status Patient Orientation: Normal For Age Transfers Functional [place] Measure 0=Not Assessed/NA 4=Minimal Assistance 1=Total Assistance 5=Supervision or Setup 2=Maximal Assistance 6=Modified [place] 3=Moderate Assistance 7=Complete IndependenceIRFPAI Quality Coding Scale 6 Independent with activity with or without an assistive device 5 Patient requires set up or clean up by helper. Patient completes activity by themselves 4 Supervision or touching assist (CGA). [place] provide cues , steadying assist 3 The helper provides less than half the effort to complete the activity 2 The helper provides more than half the effort to complete the activity 1 Dependent. The helper does all the effort to complete an activity 7 Patient refused to complete or attempt activity 9 The patient did not perform the activity before the current illness or injury 88 Not attempted due to Medical conditions or safety concerns Transfers (B, C, W/C) (FIM): 5 Scootin Rollin Sit to/from Stand: 5 Bed to/from Chair: 5 Mod I for bed mobility and SBA for transfers. Weight Bearing Right Lower Extremity: Right Full Weight Bearing Left Lower Extremity: Left Full Weight Bearing Gait Training Does the Patient Walk?: Yes Wheelchair Training Does the Pt Use a Wheelchair?: Yes Wheelchair (FIM): 2 Distance: 100 feet x2 Wheelchair Level of Assist: 6 Type of Wheelchair: Manual Treatments Pt performed [facility] mobility and functional activity. Assessment Current Status: Good Progress Pt performed floor to platform mat transfer in case of fall at home. Pt required skilled verbal instruction and mod A for managing hemiparetic L side to assist with transfer. PT Short Term Goals Short Term Goals Time Frame: Mar 22, 2017 Gait (FIM): 2 Distance (FIM): 1=up to 49 ft Gait Assistive Device: Walker Wale Wheelchair (FIM): 6 (met) Wheelchair distance (FIM): 3=150 ft Wheelchair Distance: 150 feet PT Bacon Skinner Goals Halfway Goals PT Halfway Goals Time Frame: Apr 05, 2017 Transfers (B,C,W/C) (FIM): 6 Sit to Lying (QC): 6 (met) Lying-Sitting on Side/Bed(QC): 6 (met) Sit to Stand (QC): 6 Rollin (met) Roll Left to Right (QC): 6 (met) Chair/Gke-de-Bfnrc Xfer(QC): 6 Car Transfer (QC): 5 Does the Patient Walk: No and Walking Goal IS indicated Gait (FIM): 5 Gait distance (FIM): 3=150 ft Walk 10 feet (QC): 5 Walk 10ft-Uneven Surface(QC): 5 Walk 50ft with 2 Turns (QC): 5 Walk 150 ft (QC): 5 Gait Level of Assist: 5 Gait Assistive Device: Walker Wale Does the Pt use WC or Scooter?: Yes Wheelchair (FIM): 6 (met) Wheelchair distance (FIM): 3=150 ft Wheel 50 feet with 2 turns (QC: 6 (met) Stairs (FIM): 2 # of Steps: 4 1 Step (curb) (QC): 4 4 Steps (QC): 4 12 Steps (QC): 88 Picking up an Object (QC): 88 PT Plan Problem List Problem List: Activity Tolerance, Functional Strength, Safety, Balance, Gait, Transfer, Bed Mobility, ROM Treatment/Plan Treatment Plan: Continue Plan of Care Treatment Plan: Bed Mobility, Education, Functional Activity Curtis, Functional Strength, Group Therapy, Gait, Safety, Therapeutic Exercise, Transfers Treatment Duration: Apr 05, 2017 Frequency: At least 5 of 7 days/Wk (IRF) Estimated Hrs Per Day: 1.5 hours per day Patient and/or Family Agrees t: Yes Safety Risks/Education Patient Education: Transfer Techniques, Correct Positioning, W/C Management, Safety Issues Teaching Recipient: Patient Teaching Methods: Demonstration, Discussion Response to Teaching: Return Demonstration Time/GCodes Time In: 1400 Time Out: 1430 Total Billed Treatment Time: 30 Total Billed Treatment 1 visit 30 min FA AARTI TARIQ PT Apr 08, 2017 15:27
[2017-04-08 17:59] VITALS: BP 122/75
[2017-04-08] MEDS: ATORVASTATIN 40 MG (LIPITOR) TABLET PO SCH (20:19)
[2017-04-09 05:15] VITALS: BP 119/74
[2017-04-09] MEDS: GLIMEPIRIDE 2 MG (AMARYL) TAB PO SCH (05:59)
[2017-04-09] MEDS: metFORMIN 500 MG (GLUCOPHAGE) TAB PO SCH (05:59)
--- NOTE | 2017-04-09 08:28 | Progress Note (SOAP) ---
Subjective Time Seen by Provider: 08:27 Subjective/Events-last exam CVA. Patient be discharged today patient excited Objective Exam Vital Signs Date Time Temp Pulse Resp B/P (MAP) Pulse Ox O2 Delivery O2 Flow Rate FiO2 04/09/17 05:15 98.6 79 18 119/74 (89) 97 Room Air 04/08/17 20:15 Room Air 04/08/17 17:59 97.5 81 18 122/75 (91) 96 Room Air 04/08/17 09:30 Room Air I & O 04/09/17 07:00 Intake Total 1750 ml Balance 1750 ml Capillary Refill : Less Than 3 Seconds General Appearance: No Apparent Distress, WD/WN Results Lab Laboratory Tests 04/08/17 16:14: Glucometer 67L 04/09/17 05:13: Glucometer 108 Assessment/Plan Assessment/Plan Assess & Plan/Chief Complaint CVA on left. Hypertension. Hyperlipidemia. Tobacco usage. Abdominal aortic aneurysm. GERD . 03/10/17. CVA on left. Hypertension. Hyperlipidemia. Tobacco usage. Patient working hard and moving left arm today. . 03/11/17. CVA on left. Hypertension. Hyperlipidemia. Tobacco usage. Patient working hard and improving. . 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 Hypertension. Hyperlipidemia Tobacco usage. Patient stomach doing better . 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 nauseous. Hypertension. Hyperlipidemia. Tobacco usage. . 03/16/17. CVA on left. Hypertension. Constipation. Hyperlipidemia. Tobacco usage... . . / . 03/17/17. CVA on left. Hypertension. Constipation. Hyperlipidemia. Patient seems positive. Patient working hard . 03/18/17. CVA on left. Hypertension. Did not have a bowel movement today. Hyperlipidemia. Patient working on walking. . 03/19/17. CVA on left. Hypertension. Hyperlipidemia. Constipation resolved. . 03/22/17. CVA on left. Hypertension. Hyperlipidemia. Patient doing better with left upper extremity and left lower extremity. . 03/23. CVA on left. Hypertension.. patient doing better with upper extremity than lower extremity and left. . 03/24/17. CVA on left. Hypertension. Patient improving with left upper extremity. . 03/25/17. CVA on left. Hypertension. Patient doing better with his left upper extremity. . 03/26/17. CVA on left. Hypertension. Left lower extremity having problems. . 03/29/17. CVA on left. Hypertension. Patient still needs work. . 03/30/17. CVA on left. Hypertension. Diabetes under good control. Patient making slow progress but improving. . 03/31/17. CVA on left. Hypertension good control. Diabetes good. For patient to walk needs somebody to help hold him up. . 04/01/17. CVA on left. Patient has trouble getting around on the left side when he walks. Patient unstable. . 04/02/17. CVA on left. Patient doing good in wheelchair. Patient unstable when he walks area Patient's left upper extremity doing better. . 04/05/17. CVA on left. Patient standing up a little better . . CVA on left. Patient be discharged Wednesday. 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 . . CVA on left. Patient working on bicycle today. . 04/08/17. CVA on left. Patient improving . 04/09/17. CVA on left. Patient to be discharged today. Patient realizes he still has to continue working Clinical Quality Measures DVT/VTE Risk/Contraindication: Risk Factor Score Per Nursin RFS Level Per Nursing on Admit: 4+=Very High JAIME ROBERSON DO Apr 09, 2017 08:28
[2017-04-09] MEDS: CLOPIDOGREL 75 MG (PLAVIX) TABLET PO SCH (08:41)
[2017-04-09] MEDS: lisINopril 10 MG (PRINIVIL) TABLET PO SCH (08:42)
--- NOTE | 2017-04-09 09:09 | PM & R (SOAP) Progress Note ---
Subjective Time Seen by Provider: 07:45 Subjective/Events-last exam Patient was seen on unit this AM Sitting up in W/C Looking forward to discharge today to home with family in [facility] Review of Systems Neurological: Weakness Objective Exam Last Set of Vital Signs Vital Signs Date Time Temp Pulse Resp B/P (MAP) Pulse Ox O2 Delivery O2 Flow Rate FiO2 04/09/17 05:15 98.6 79 18 119/74 (89) 97 Room Air Capillary Refill : Less Than 3 Seconds I&O Intake and Output 04/09/17 00:00 Intake Total 1800 ml Balance 1800 ml Intake Oral 1800 ml # Voids 5 # Bowel Movements 1 General: Alert, Oriented X3, Cooperative, No Acute Distress HEENT: Atraumatic, PERRLA, EOMI, Mucous Memb Moist/[place] Neck: Supple, No JVD Lungs: Clear to Auscultation Heart: Regular Rate Abdomen: Normal Bowel Sounds, Soft, No Tenderness Extremities: No Edema Neuro: Other (Left LE flaccid with trace return LUE) Psych/Mental Status: Mental Status NL Results Lab Laboratory Tests 04/06/17 15:30: Glucometer 86 04/07/17 05:25: Glucometer 108 04/07/17 16:22: Glucometer 141H 04/08/17 04:48: Glucometer 99 04/08/17 16:14: Glucometer 67L 04/09/17 05:13: Glucometer 108 Assessment/Plan Assessment Rt MCA CVA with Left HP HTN controlled DM2 controlled Tobacco abuse declines Patch 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
--- NOTE | 2017-04-09 09:25 | Therapy Team Discharge Summary ---
Therapy Discharge Summary Discharge Recommendations Date of Discharge Therapy D/C Recommendations: Physical Therapy Home Care Physical Therapy Patient came to rehab following a CVA. Upon admission patient performed bed mobility with min to mod assist, transfers with max assist, and propelled a manual wheelchair 150' with min assist. Patient has been performing bed mobility and transfer training, balance and endurance training, functional strengthening, gait training, and education. Patient has made fair progress but has only met his bed mobility and wheelchair mobility supervisor intermediates goals. Now , patient performs bed mobility with mod I, transfers with CGA, ambulates 150' with a hemiwalker and left knee immobilizer and AFO with min assist, and can propel a manual wheelchair 150' with mod I. Patient is being discharged from this facility today and will be discharged from PT at this time. Occupational Therapy Decreased Activ Tolerance, Decreased UE Strength, Dependent Transfers, Impaired Coordination, Impaired Funct Balance, Impaired I ADL's, Impaired Self-Care Skills, Restricted Funct UE ROM PT Drive In Theater Attendant Goals Mcfp Goals PT Drive In Theater Attendant Goals Time Frame: Apr 05, 2017 Transfers (B,C,W/C) (FIM): 6 Roll Left to Right (QC): 6 (met) Sit to Lying (QC): 6 (met) Lying-Sitting on Side/Bed(QC): 6 (met) Sit to Stand (QC): 6 Chair/Iyd-mv-Jytvd Xfer(QC): 6 Car Transfer (QC): 5 Does the Patient Walk: No and Walking Goal IS indicated Gait (FIM): 5 Gait distance (FIM): 3=150 ft Walk 10 feet (QC): 5 Walk 10ft-Uneven Surface(QC): 5 Walk 50ft with 2 Turns (QC): 5 Walk 150 ft (QC): 5 Gait Level of Assist: 5 Gait Assistive Device: Walker Wale Does the Pt use WC or Scooter?: Yes Wheelchair (FIM): 6 (met) Wheelchair distance (FIM): 3=150 ft Wheel 50 feet with 2 turns (QC: 6 (met) Stairs (FIM): 2 # of Steps: 4 1 Step (curb) (QC): 4 4 Steps (QC): 4 12 Steps (QC): 88 Picking up an Object (QC): 88 OT Mcfp Goals Drive In Theater Attendant Goals Time Frame: Apr 05, 2017 Eating (FIM): 6 (not met) Eating (QC): 6 (not met) Oral Hygiene (QC): 6 (met-04/08/2017) Grooming(FIM): 6 (met-04/08/2017) Bathing(FIM): 5 (not met) Shower/Bathe Self (QC): 5 (not met) Upper Body Dressing(FIM): 6 (met-04/08/2017) Upper Body Dressing (QC): 6 (met-04/08/2017) Lower Body Dressing(FIM): 5 (not met) Lower Body Dressing (QC): 5 (not met) On/Off Footwear (QC): 5 (met-04/08/2017) Toileting(FIM): 5 (not met) Toileting Hygiene (QC): 5 (not met) Toilet/Commode Transfer(FIM): 5 (not met) Toilet/Commode Transfer (QC): 5 (not met) Shower Transfer(FIM): 5 (not met) Additional Goals: 2-Verbalize Understanding, 3-ImproveStrength/Curtis 1=Demonstrate adherence to instructed precautions during ADL tasks. 2=Patient will verbalize/demonstrate understanding of assistive devices/ modifications for ADL. 3=Patient will improve strength/tolerance for activity to enable patient to perform ADL's. MARJ FARIA PT Apr 09, 2017 09:25
--- NOTE | 2017-04-09 15:41 | Therapy Team Discharge Summary ---
Therapy Discharge Summary Discharge Recommendations Date of Discharge Therapy D/C Recommendations: Occupational Therapy Home Care, Physical Therapy Home Care Occupational Therapy Pt was seen for skilled OT to increase his independence in basic self care to allow him to safely return home and to decrease caregiver burden, after CVA with L sided hemiparesis. On admission he needed setup for grooming; mod assist with eating, bathing, toileting; max assist upper body dressing and dependant with lower body dressing and toilet transfers. By discharge he had improved to modified independent with grooming and upper body dressing; setup for eating; and min assist for bathing, lower body dressing, toileting and toilet/shower transfers. Equipment used included shower bench, grab bars, hand held shower, long handled sponge, BSC over toilet, w/c. See tx plan for goals met. Home health OT recommended. DC OT. Decreased Activ Tolerance, Decreased UE Strength, Dependent Transfers, Impaired Coordination, Impaired Funct Balance, Impaired I ADL's, Impaired Self-Care Skills, Restricted Funct UE ROM PT Longterm Goals Longterm Goals PT Longterm Goals Time Frame: Apr 05, 2017 Transfers (B,C,W/C) (FIM): 6 Roll Left to Right (QC): 6 (met) Sit to Lying (QC): 6 (met) Lying-Sitting on Side/Bed(QC): 6 (met) Sit to Stand (QC): 6 Chair/Qrt-wo-Jgkfn Xfer(QC): 6 Car Transfer (QC): 5 Does the Patient Walk: No and Walking Goal IS indicated Gait (FIM): 5 Gait distance (FIM): 3=150 ft Walk 10 feet (QC): 5 Walk 10ft-Uneven Surface(QC): 5 Walk 50ft with 2 Turns (QC): 5 Walk 150 ft (QC): 5 Gait Level of Assist: 5 Gait Assistive Device: Walker Wale Does the Pt use WC or Scooter?: Yes Wheelchair (FIM): 6 (met) Wheelchair distance (FIM): 3=150 ft Wheel 50 feet with 2 turns (QC: 6 (met) Stairs (FIM): 2 # of Steps: 4 1 Step (curb) (QC): 4 4 Steps (QC): 4 12 Steps (QC): 88 Picking up an Object (QC): 88 OT Organ Recovery Coordinator Goals Longterm Goals Time Frame: Apr 05, 2017 Eating (FIM): 6 (not met) Eating (QC): 6 (not met) Oral Hygiene (QC): 6 (met-04/08/2017) Grooming(FIM): 6 (met-04/08/2017) Bathing(FIM): 5 (not met) Shower/Bathe Self (QC): 5 (not met) Upper Body Dressing(FIM): 6 (met-04/08/2017) Upper Body Dressing (QC): 6 (met-04/08/2017) Lower Body Dressing(FIM): 5 (not met) Lower Body Dressing (QC): 5 (not met) On/Off Footwear (QC): 5 (met-04/08/2017) Toileting(FIM): 5 (not met) Toileting Hygiene (QC): 5 (not met) Toilet/Commode Transfer(FIM): 5 (not met) Toilet/Commode Transfer (QC): 5 (not met) Shower Transfer(FIM): 5 (not met) Additional Goals: 2-Verbalize Understanding, 3-ImproveStrength/Curtis 1=Demonstrate adherence to instructed precautions during ADL tasks. 2=Patient will verbalize/demonstrate understanding of assistive devices/ modifications for ADL. 3=Patient will improve strength/tolerance for activity to enable patient to perform ADL's. ROSY CHAVSE OT Apr 09, 2017 15:41
[2017-04-09 16:23] VITALS: BP 121/77
== END 2017-04-09 16:12 | disposition home health service (06) | DRG 57 ==
PROVIDERS: ADMIT Physical Medicine & Rehabilitation; ATTEND Physical Medicine & Rehabilitation
DX: I69.354 Hemiplegia and hemiparesis following cerebral infarction affecting left non-dominant side (principal); E11.9 Type 2 diabetes mellitus without complications; I10 Essential (primary) hypertension; E78.5 Hyperlipidemia, unspecified; K21.9 Gastro-esophageal reflux disease without esophagitis; F17.210 Nicotine dependence, cigarettes, uncomplicated; I71.4 Abdominal aortic aneurysm, without rupture; R11.0 Nausea; K59.00 Constipation, unspecified; Z79.84 Long term (current) use of oral hypoglycemic drugs
CPT/HCPCS: 36415; 74018; 80053; 82962; 85027

== ENCOUNTER → 2017-08-26 | Outpatient (RCR) | payer MEDICARE, OTHER ==
[~2017-08-26] MED LIST changes: +ASPI325T32 PO; +CLOP75TA28 PO; +GABA-488; +GLIM2TAB PO; +LISI10TA2 PO; +METF10002 PO; +NICO-587 TD; +SIMV5TAB6 PO; +TRAM50TA2
== END | disposition home or self-care (01) ==
PROVIDERS: ATTEND Nurse Practitioner
DX: I69.354 Hemiplegia and hemiparesis following cerebral infarction affecting left non-dominant side (principal); E11.9 Type 2 diabetes mellitus without complications; I10 Essential (primary) hypertension; F17.210 Nicotine dependence, cigarettes, uncomplicated

== ENCOUNTER 2017-09-30 12:51 | Outpatient (RCR) | payer MEDICARE, OTHER | END 2017-09-30 13:59 | disposition home or self-care (01) | PROVIDERS: ATTEND Nurse Practitioner | DX: I69.354 Hemiplegia and hemiparesis following cerebral infarction affecting left non-dominant side (principal); E11.9 Type 2 diabetes mellitus without complications; I10 Essential (primary) hypertension; F17.210 Nicotine dependence, cigarettes, uncomplicated ==

== ENCOUNTER 2017-11-01 21:51 | Emergency (ER) | payer MEDICARE, OTHER ==
[~2017-11-01] VITALS: Ht 188 cm; Wt 72.7 kg
[~2017-11-01 21:51] MED LIST changes: +METF-399 PO; -METF10002 PO
[2017-11-01] MEDS ORDERED: NS IV 1000 ML 1,000 ML IV ONE (23:37)
[2017-11-01 23:47] LABS: HEMATOCRIT 43 % (40-54); HEMOGLOBIN 15.5 G/DL (13.3-17.7); RED BLOOD COUNT 5.02 10^6/uL (4.35-5.85); WHITE BLOOD COUNT 7.7 10^3/uL (4.3-11.0)
[2017-11-01 23:48] LABS: BASOPHILS # (AUTO) 0.1 10^3/uL (0.0-0.1); BASOPHILS % (AUTO) 1 % (0-10); EOSINOPHILS # (AUTO) 0.2 10^3/uL (0.0-0.3); EOSINOPHILS % (AUTO) 2 % (0-10); LYMPHOCYTES # (AUTO) 1.4 X 10^3 (1.0-4.0); LYMPHOCYTES % (AUTO) 19 % (12-44); MEAN CORPUSCULAR HEMOGLOBIN 31 PG (25-34); MEAN CORPUSCULAR HGB CONC 36 G/DL (32-36); MEAN CORPUSCULAR VOLUME 87 FL (80-99); MEAN PLATELET VOLUME 9.8 FL (7.4-10.4); MONOCYTES # (AUTO) 0.6 X 10^3 (0.0-1.0); MONOCYTES % (AUTO) 7 % (0-12); NEUTROPHILS # (AUTO) 5.5 X 10^3 (1.8-7.8); NEUTROPHILS % (AUTO) 71 % (42-75); PLATELET COUNT 245 10^3/uL (130-400); RED CELL DISTRIBUTION WIDTH 14.1 % (10.0-14.5)
[2017-11-01 23:58] LABS: PROTHROMBIN TIME PATIENT 13.6 SEC (12.2-14.7)
[2017-11-02 00:10] LABS: ALANINE AMINOTRANSFERASE 26 U/L (0-55); ALBUMIN 4.4 GM/DL (3.2-4.5); ALKALINE PHOSPHATASE 154 U/L (40-136); BILIRUBIN,TOTAL 0.8 MG/DL (0.1-1.0); BUN/CREATININE RATIO 21; CALCIUM 9.6 MG/DL (8.5-10.1); CARBON DIOXIDE 21 MMOL/L (21-32); CHLORIDE 102 MMOL/L (98-107); GFR ESTIMATED > 60; GLUCOSE 132 MG/DL (70-105); POTASSIUM 4.3 MMOL/L (3.6-5.0); SODIUM 137 MMOL/L (135-145); TOTAL PROTEIN 7.3 GM/DL (6.4-8.2)
--- NOTE | 2017-11-02 00:11 | ED General ---
General Stated Complaint: UNABLE TO URINATE/BACK PAIN Source of Information: Patient, Family (daughter (primary caregiver) and sister ) Exam Limitations: No Limitations (NESS MONTES STUDENT) History of Present Illness Date Seen by Provider: Nov 01, 2017 Time Seen by Provider: 23:30 Initial Comments Christiano is a 72-year-old male who presents to the ED this evening with the chief complaint of inability to urinate for roughly the past 8 hours. Since arriving to the ED, the patient has attempted to urinate "8-9 times," yielding very little urine into bedside urinal. Patient says he becomes diaphoretic when attempting to urinate. Patient denies any penile discharge or evidence of bleeding from the urethral meatus. Patient states he has accompanying suprapubic pain. Patient reports dark-colored urine last month (September 2017), but says his pain and discomfort is much more intense today in comparison. An UA was performed last month that showed no evidence of an UTI. Patient denies fever, chills, and history of urinary tract pathology. Patient has history of BPH with prostate surgery, CVA in February 2017, and an AAA that is currently being monitored. Patient is accompanied by his daughter, who is his primary caregiver post-CVA. Patient's PCP is Dr. Brown at [facility] in [place], [place]. Patient also sees a physician at [facility] for yearly physical exams. Patient states he had prior bad reaction to the flu vaccine, but otherwise has NKDA. Patient smokes cigarettes, does not drink alcohol, and does not use illegal drugs. Location Injury Occurred: Urinary tract Timing/Duration: 4-6 Hours (Symptoms arose roughly 8 hours from time seen in ED ), 4-5 Days Severity: Moderate Associated Systoms: No Fever/Chills (Patient denied chills), No Nausea/Vomiting (NESS MONTES STUDENT) Initial Comments Here with report of difficulty with urination and pain on trying to pass urine. He has frequency and urgency with very little output. Does have fairly significant suprapubic pain. Does have history of previous stroke. Has had the Catheter previously briefly for difficulty with urination. Does have history of BPH and status post surgery. Did have mild fever today and some chills or sweating with attempting to urinate. Timing/Duration: Getting Worse Associated Systoms: Fever/Chills (PEPITO,NESS D MD) Allergies and Home Medications Allergies Coded Allergies: Influenza Virus Vaccines (Verified Allergy, Unknown, 05/23/09) Uncoded Allergies: FLU SHOT (Allergy, Mild, 05/22/09) Home Medications Aspirin 325 Mg Tablet.dr, 325 MG PO DAILY, (Reported) Clopidogrel Bisulfate 75 Mg Tablet, 75 MG PO DAILY Prescribed by: NNEKA MARTIN on 04/08/17 0902 Glimepiride 2 Mg Tablet, 2 MG PO DAILY, (Reported) Lisinopril 10 Mg Tablet, 10 MG PO DAILY, (Reported) Metformin HCl 1,000 Mg Tablet, 1,000 MG PO BID WITH MEALS, (Reported) Simvastatin 5 Mg Tablet, 5 MG PO HS, (Reported) Patient Home Medication List Home Medication List Reviewed: Yes (NESS MONTES STUDENT) Home Medication List Reviewed: Yes (NESS BEYER MD) Review of Systems Review of Systems Constitutional: No chills; diaphoresis (pronounced when patient attempts to urinate); No fever Genitourinary: decreased output (oliguria, with significant difficulty urinating over the past 8 hours); No hematuria; pain (suprapubic) Musculoskeletal: joint swelling (left ankle swelling; patient reports present since CVA in Feb 2017) Skin: other (clammy, diaphoretic) (NESS MONTES STUDENT) Respiratory: no symptoms reported Cardiovascular: no symptoms reported Gastrointestinal: see HPI, abdominal pain (suprapubic); No nausea, No vomiting Genitourinary: decreased output (oliguria, with significant difficulty urinating over the past 8 hours), frequency, hesitancy, pain (suprapubic) ( NESS BEYER MD) All Other Systems Reviewed Negative Unless Noted: Yes (NESS BEYER MD) Past Ifrkssd-Tjuadk-Modjsd Hx Past Med/Social Hx: Reviewed Nursing Past Med/Soc Hx (NESS BEYER MD) Patient Social History Alcohol Use: Denies Use Recreational Drug Use: No Smoking Status: Smoker Current Status UKN Type Used: Cigarettes Former Smoker, Quit: Mar 04, 2017 Recent Foreign Travel: No Contact w/Someone Who Travel: No Recent Hopitalizations: Yes (VEIN STRIPPING HEMORRHOIDS) (NESS MONTES STUDENT) Immunizations Up To Date Tetanus Booster (TDap): Unknown PED Vaccines UTD: Yes Date of Pneumonia Vaccine: Apr 05, 2016 (NESS MONTES MED STUDENT) Seasonal Allergies Seasonal Allergies: No (NESS MONTES STUDENT) Past Medical History Surgeries: Yes ( HEMORRHOIDS, Prostate biopsy related to BPH) Respiratory: No Cardiac: Yes (-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) Neurological: Yes (stroke feb 2017) Stroke Reproductive Disorders: No Genitourinary: No Gastrointestinal: Yes Gastroesophageal Reflux, Hemorrhoids Musculoskeletal: Yes (indicates cervical narrowing) Endocrine: Yes Diabetes, Non-Insulin dep HEENT: Yes (blurred vision-has hearingaides-does not wear) Loss of Vision: Bilateral Hearing Impairment: Hard of Hearing Cancer: No Psychosocial: No Integumentary: No Blood Disorders: No (NESS MONTES STUDENT) Family Medical History Reviewed Nursing Family Hx (NESS BEYER MD) Physical Exam-Suspected Sepsis Physical Exam Vital Signs Capillary Refill : (NESS MONTES STUDENT) Height, Weight, BMI Height: 6'2.00" Weight: 175lbs. 4.8oz. [id number]; 25.0 BMI Method:Stated (NESS MONTES MED STUDENT) General Appearance: Mild Distress (resolved after enema not catheter and drainage of urine), Thin HEENT: PERRL/EOMI, Pharynx Normal Neck: Non Tender, Supple Respiratory: Lungs Clear, Normal Breath Sounds Cardiovascular: Regular Rate, Rhythm, No Murmur Gastrointestinal: Soft, Tenderness (suprapubic but improved after drainage of urine) Back: Normal Inspection, No CVA Tenderness, No Vertebral Tenderness Extremity: Non Tender, Swelling (chronic mild left lower extremity swelling since the stroke.), Other (residual left-sided weakness. Previous left shoulder injury and chronic pain) Neurologic/Psychiatric: Alert, Oriented x3 Skin: normal color, warm/dry (NESS BEYER MD) Focused Exam Lactate Level 11/01/17 23:50: Lactic Acid Level 1.85 (NESS BEYER MD) Lactic Acid Level Laboratory Tests Test 11/01/17 23:50 Lactic Acid Level 1.85 MMOL/L (0.50-2.00) (NESS BEYER MD) Progress/Results/Core Measures Suspected Sepsis SIRS Temperature: Pulse: Respiratory Rate: Blood Pressure / Mean: (NESS MONTES MED STUDENT) Results/Orders Lab Results Laboratory Tests Test 11/01/17 23:20 11/01/17 23:50 11/02/17 00:03 Range/Units White Blood Count 7.7 4.3-11.0 10^3/uL Red Blood Count 5.02 4.35-5.85 10^6/uL Hemoglobin 15.5 13.3-17.7 G/DL Hematocrit 43 40-54 % Mean Corpuscular Volume 87 80-99 FL Mean Corpuscular Hemoglobin 31 25-34 PG Mean Corpuscular Hemoglobin Concent 36 32-36 G/DL Red Cell Distribution Width 14.1 10.0-14.5 % Platelet Count 245 130-400 10^3/uL Mean Platelet Volume 9.8 7.4-10.4 FL Neutrophils (%) (Auto) 71 42-75 % Lymphocytes (%) (Auto) 19 12-44 % Monocytes (%) (Auto) 7 0-12 % Eosinophils (%) (Auto) 2 0-10 % Basophils (%) (Auto) 1 0-10 % Neutrophils # (Auto) 5.5 1.8-7.8 X 10^3 Lymphocytes # (Auto) 1.4 1.0-4.0 X 10^3 Monocytes # (Auto) 0.6 0.0-1.0 X 10^3 Eosinophils # (Auto) 0.2 0.0-0.3 10^3/uL Basophils # (Auto) 0.1 0.0-0.1 10^3/uL Prothrombin Time 13.6 12.2-14.7 SEC INR Comment 1.0 0.8-1.4 Activated Partial Thromboplast Time 29 24-35 SEC Sodium Level 137 135-145 MMOL/L Potassium Level 4.3 3.6-5.0 MMOL/L Chloride Level 102 98-107 MMOL/L Carbon Dioxide Level 21 21-32 MMOL/L Anion Gap 14 5-14 MMOL/L Blood Urea Nitrogen 15 7-18 MG/DL Creatinine 0.70 0.60-1.30 MG/DL Estimat Glomerular Filtration Rate > 60 BUN/Creatinine Ratio 21 Glucose Level 132 H 70-105 MG/DL Calcium Level 9.6 8.5-10.1 MG/DL Corrected Calcium 9.3 8.5-10.1 MG/DL Total Bilirubin 0.8 0.1-1.0 MG/DL Aspartate Amino Transf (AST/SGOT) 26 5-34 U/L Alanine Aminotransferase (ALT/SGPT) 26 0-55 U/L Alkaline Phosphatase 154 H 40-136 U/L Total Protein 7.3 6.4-8.2 GM/DL Albumin 4.4 3.2-4.5 GM/DL Lactic Acid Level 1.85 0.50-2.00 MMOL/L Urine Color YELLOW Urine Clarity CLEAR Urine pH 7 5-9 Urine Specific Central 1.010 L 1.016-1.022 Urine Protein NEGATIVE NEGATIVE Urine Glucose (UA) NEGATIVE NEGATIVE Urine Ketones NEGATIVE NEGATIVE Urine Nitrite NEGATIVE NEGATIVE Urine Bilirubin NEGATIVE NEGATIVE Urine Urobilinogen NORMAL NORMAL MG/DL Urine Leukocyte Esterase NEGATIVE NEGATIVE Urine RBC (Auto) NEGATIVE NEGATIVE Urine RBC RARE /HPF Urine WBC NONE /HPF Urine Squamous Epithelial Cells NONE /HPF Urine Crystals NONE /LPF Urine Bacteria TRACE /HPF Urine Casts NONE /LPF Urine Mucus SMALL H /LPF Urine Culture Indicated NO (NESS BEYER MD) My Orders Orders - NESS BEYER MD Cbc With Automated Diff (11/01/17 23:37) Comprehensive Metabolic Panel (11/01/17 23:37) Blood Culture (11/01/17 23:37) Sputum Culture (11/01/17 23:37) Urinalysis (11/01/17 23:37) Urine Culture (11/01/17 23:37) Protime With Inr (11/01/17 23:37) Partial Thromboplastin Time (11/01/17 23:37) Saline Lock/Iv-Start (11/01/17 23:37) Vital Signs Adult Sepsis Patie Q15M (11/01/17 23:37) O2 (11/01/17 23:37) Remove Rings In Anticipation O (11/01/17 23:37) Lactic Acid Analyzer (11/01/17 23:37) Saline Lock/Iv-Start (11/01/17 23:37) Ns Iv 1000 Ml (Sodium Chloride 0.9%) (11/01/17 23:37) Chest 1 View, Ap/Pa Only (11/02/17 00:01) (NESS BEYER MD) Medications Given in ED Current Medications Medications Dose Ordered Sig/Estefanía Route Start Time Stop Time Status Last Admin Dose Admin Sodium Chloride 1,000 ml @ 0 mls/hr Q0M ONCE IV 11/01/17 23:37 11/01/17 23:38 DC 11/02/17 00:14 1,000 MLS/HR (NESS BEYER MD) Vital Signs/I&O Capillary Refill : (NESS MONTES MED STUDENT) Progress Note : Progress Note I have seen and evaluated the patient and agree with above except as indicated. I have directed the plan of care. IV, labs, UA, blood cultures and lactic acid ordered. Chest x-ray ordered for sepsis protocol. Normal saline 1 L bolus. Nursing did do an in out catheter and has significant amount of urine output and this did essentially completely resolve patient's pain complaint. Monitor patient. 0145: Patient was unable to urinate after multiple attempts. He is in fairly significant pain. Shannon catheter to be placed but unable to place standard catheter. [place]ude[place] catheter placed by me 16 [place] with some resistance but was able to pass. Patient had clear yellow urine drainage afterwards. This was converted to leg bag by nursing and the patient will go home with catheter in place. Patient and family instructed to follow-up with his primary doctor and urologist which she verbalizes understanding. Discharged home with return precautions. Patient verbalize understanding instructions and agreement with plan. (NESS BEYER MD) Diagnostic Imaging Diagonstic Imaging: Xray Plain Films/CT/US/NM/MRI: chest Comments no acute findings Reviewed: Reviewed by Me (NESS BEYER MD) Departure Impression Primary Impression: Urinary retention Disposition: 01 HOME, SELF-CARE Condition: Improved Departure-Patient Inst. Decision time for Depature: 02:05 (NESS BEYER MD) Referrals: BENNY PEDRAZA (PCP) Primary Care Physician YUNG MCLEAN MD Patient Instructions: How to Care for Your Shannon Catheter, Male, Urinary Retention (DC) Add. Discharge Instructions: Follow-up with your DrAlana in a few days for recheck. Follow-up with urologist listed or of your choosing within the next week for recheck and further evaluation. Continue home medications. Return for worse pain, fever, vomiting , weakness, breathing problems or other concerns as needed. NESS MONTES MED STUDENT Nov 02, 2017 00:11 NESS BEYER MD Nov 02, 2017 00:33
[2017-11-02 00:25] LABS: BILIRUBIN,URINE NEGATIVE (NEGATIVE); COLOR,URINE YELLOW; GLUCOSE, URINE (UA) NEGATIVE (NEGATIVE); KETONES,URINE NEGATIVE (NEGATIVE); LEUKOCYTE ESTERASE ,URINE NEGATIVE (NEGATIVE); NITRITE,URINE NEGATIVE (NEGATIVE); PH,URINE 7 (5-9); PROTEIN,URINE NEGATIVE (NEGATIVE); UROBILINOGEN,URINE NORMAL (NORMAL)
[2017-11-02 00:26] LABS: CLARITY,URINE CLEAR
[2017-11-02 00:27] LABS: RBC,URINE RARE /HPF
[2017-11-02 00:28] LABS: BACTERIA,URINE TRACE /HPF
[2017-11-02 02:20] VITALS: BP 134/95
--- NOTE | 2017-11-02 07:05 | Diagnostic Imaging Report ---
Patient History: Cough and congestion Technique: Single frontal view of the chest Comparison: 07/03/2017 FINDINGS: The lung volumes are normal. No focal consolidation is seen. A calcified granuloma is seen in the left lung. No large pleural effusion or pneumothorax is seen. The cardiomediastinal silhouette is normal in size and contour. The aorta is tortuous, but appears stable. No acute osseous abnormality is seen. IMPRESSION: No acute pulmonary abnormality seen. Dictated by: Dictated on workstation # [id number]
== END 2017-11-02 02:20 | disposition home or self-care (01) ==
LOC: EDUNIT# 21:51 → ER 21:52
DX: R33.9 Retention of urine, unspecified (principal); K21.9 Gastro-esophageal reflux disease without esophagitis; E11.9 Type 2 diabetes mellitus without complications; F17.210 Nicotine dependence, cigarettes, uncomplicated; Z98.890 Other specified postprocedural states; Z87.19 Personal history of other diseases of the digestive system; Z86.73 Personal history of transient ischemic attack (TIA), and cerebral infarction without residual deficits; Z88.7 Allergy status to serum and vaccine; Z79.82 Long term (current) use of aspirin; Z79.84 Long term (current) use of oral hypoglycemic drugs; Z79.02 Long term (current) use of antithrombotics/antiplatelets
CPT/HCPCS: 36415; 51702; 71045; 80053; 81000; 83605; 85025; 85610; 85730; 87040; 87088; 96360

== ENCOUNTER 2018-04-19 09:04 | Outpatient (RCR) | payer MEDICARE, OTHER ==
[~2018-04-19 09:04] MED LIST changes: +SIMV5TAB22 PO; -SIMV5TAB6 PO
[2018-04-23] MEDS ORDERED: DULO30CA48 (07:58)
[2018-04-23] MEDS ORDERED: HYDR-3812 PO (11:28)
== END 2018-05-24 16:14 | disposition home or self-care (01) ==
PROVIDERS: ATTEND Family Medicine
DX: R26.81 Unsteadiness on feet (principal); M19.012 Primary osteoarthritis, left shoulder

== ENCOUNTER 2018-04-23 07:44 | Emergency (ER) | payer MEDICARE, OTHER ==
[~2018-04-23] VITALS: Ht 188 cm; Wt 72.7 kg
--- OUTSIDE RECORDS SUMMARY | 2018-04-23 07:50 | XMS REPORT | Clinical Summary ---
Author Author Admin, CLAUDIA Organization [facility] Address Unknown Phone Unavailable Allergies, Adverse Reactions, Alerts Allergy Name Reaction Description Start Date Severity Status Provider INFLUENZA VACCINE projectile vomitting Severe Active Amena Jones Conditions or Problems Problem Name Problem Code Onset Date Status Entry Date Provider Comment Standard Description Annotate History of Falls-At Risk for future falls V15.88 Active Amena Jones Personal history of fall Other retention of urine 788.20 Active Francisco Javier Rockwell MD Retention of urine, unspecified BPH with urinary obstruction 600.01 Active Francisco Javier Rockwell MD Hypertrophy (benign) of prostate with urinary obstruction and other lower urinary tract symptoms (LUTS) BMI 21-21.9 Active Francisco Javier Rockwell MD Body Mass Index between 19-24, adult Medication List Medication Instructions Start Date Stop Date Generic Name NDC Status Provider Patient Instruction BACLOFEN 10 MG ORAL TABLET 1 tab three times daily BACLOFEN 13018189104 Active Amena Jones Active CYMBALTA 30 MG ORAL CAPSULE DELAYED RELEASE PARTICLES 1 cap by mouth daily DULOXETINE HCL 61392870650 Active Amena Jones Active CYMBALTA 60 MG ORAL CAPSULE DELAYED RELEASE PARTICLES 1 cap by mouth daily DULOXETINE HCL 56186712904 Active Amena Jones Active FLONASE 50 MCG/ACT NASAL SUSPENSION 1 spray each nostril twice daily for allergies and runny nose FLUTICASONE PROPIONATE 57763503642 Active Amena Jones Active GABAPENTIN 600 MG ORAL TABLET 2 tabs BID GABAPENTIN 96635107037 Active Amena Jones Active TRAZODONE HCL 50 MG ORAL TABLET 1 tablet about 90 minutes before bedtime for sleep TRAZODONE HCL 24115810744 Active Amena Jones Active FLOMAX 0.4 MG ORAL CAPSULE 1 capsule by moud every evening for prostate symptoms TAMSULOSIN HCL 15688706390 Active Amena Jones Active METFORMIN HCL 1000 MG ORAL TABLET 1 tablet by mouth twice daily METFORMIN HCL 04208931276 Active Amena Jones Active ATORVASTATIN CALCIUM 80 MG ORAL TABLET 1 po qHS ATORVASTATIN CALCIUM 40271174256 Active Amena Jones Active SIMVASTATIN 5 MG ORAL TABLET once at night SIMVASTATIN 03943551476 No Longer Active [facility] Active FORTAMET 1000 MG ORAL TABLET EXTENDED RELEASE 24 HOUR twice daily METFORMIN HCL 17681313347 Active [facility] Active LISINOPRIL 10 MG ORAL TABLET once daily LISINOPRIL 80214307616 Active [facility] Active GLIMEPIRIDE 2 MG ORAL TABLET once daily GLIMEPIRIDE 90946244484 Active [facility] Active PLAVIX 75 MG ORAL TABLET once daily CLOPIDOGREL BISULFATE 94481632988 Active [facility] Active ASPIRIN 325 MG ORAL TABLET once daily ASPIRIN 67036891642 Active [facility] Active Advance Directives Directive Description Start Date DURABLE POWER OF SHANK BREAKER FOR HEALTHCARE PERMISSION TO SHARE Vital Signs Date Name Value Unit Range Description blood pressure, diastolic 70 mm[Hg] BP javier blood pressure, systolic 105 mm[Hg] BP sys height E&M 72 [in_us] Bdy height pulse rate E&M 71 /min Heart rate temperature E&M 98.1 [degF] Body temperature weight E&M 156 [lb_av] Weight Measured blood pressure, diastolic, repeated by physician 65 BP javier blood pressure, diastolic 65 mm[Hg] BP javier blood pressure, systolic, repeated by physician 100 BP sys blood pressure, systolic 100 mm[Hg] BP sys height E&M 72 [in_us] Bdy height pulse rate E&M 77 /min Heart rate temperature E&M 98.0 [degF] Body temperature weight E&M 156 [lb_av] Weight Measured blood pressure, diastolic, repeated by physician 64 BP javier blood pressure, diastolic 64 mm[Hg] BP javier blood pressure, systolic, repeated by physician 98 BP sys blood pressure, systolic 98 mm[Hg] BP sys height E&M 72 [in_us] Bdy height pulse rate E&M 76 /min Heart rate temperature E&M 98.2 [degF] Body temperature weight E&M 156 [lb_av] Weight Measured Diagnostic Results Date Name Value Unit Range Description Office Visit: New pt urinary retention - PMH sexually transmitted disease no risk noted Encounters Code Encounter Date Provider Facility CPT-70331 Level 4 New Patient 16:02:00 CDT Francisco Javier Rockwell MD [facility] Procedures Code Procedure Name Date Entry Date Standard Description CPT-09682 Cystoscopy 16:02:00 CDT
--- OUTSIDE RECORDS SUMMARY | 2018-04-23 07:50 | XMS REPORT | Clinical Summary ---
Author Author Admin, CLAUDIA Organization [facility] Address Unknown Phone Unavailable Allergies, [...] TABLET 1 tab three times daily BACLOFEN 24818251885 Active Amena Yinvaez Active CYMBALTA 30 MG ORAL CAPSULE DELAYED RELEASE PARTICLES 1 cap by mouth daily DULOXETINE HCL 35705306849 Active Amena Jones Active CYMBALTA 60 MG ORAL CAPSULE DELAYED RELEASE PARTICLES 1 cap by mouth daily DULOXETINE HCL 39993345837 Active Amena Jones Active FLONASE 50 MCG/ACT NASAL SUSPENSION 1 spray each nostril twice daily for allergies and runny nose FLUTICASONE PROPIONATE 86790014718 Active Amena Jones Active GABAPENTIN 600 MG ORAL TABLET 2 tabs BID GABAPENTIN 64718953468 Active Amena Jones Active TRAZODONE HCL 50 MG ORAL TABLET 1 tablet about 90 minutes before bedtime for sleep TRAZODONE HCL 71730171485 Active Amena Jones Active FLOMAX 0.4 MG ORAL CAPSULE 1 capsule by moud every evening for prostate symptoms TAMSULOSIN HCL 74050330550 Active Amena Jones Active METFORMIN HCL 1000 MG ORAL TABLET 1 tablet by mouth twice daily METFORMIN HCL 60942358592 Active Amena Jones Active ATORVASTATIN CALCIUM 80 MG ORAL TABLET 1 po qHS ATORVASTATIN CALCIUM 46198743772 Active Amena Jones Active SIMVASTATIN 5 MG ORAL TABLET once at night SIMVASTATIN 75020950788 No Longer [facility] 1000 MG ORAL TABLET EXTENDED RELEASE 24 HOUR twice daily METFORMIN HCL 85529218313 Active Jeanna Lopes 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 TILING PROFESSIONAL Active LISINOPRIL 10 MG ORAL TABLET once daily LISINOPRIL 62496354947 [facility] Active GLIMEPIRIDE 2 MG ORAL TABLET once daily GLIMEPIRIDE 72408501778 [facility] Active PLAVIX 75 MG ORAL TABLET once daily CLOPIDOGREL BISULFATE 66779633029 Active [facility] Active ASPIRIN 325 MG ORAL TABLET once daily ASPIRIN 75557574144 Active [facility] Active Advance Directives Directive Description Start Date DURABLE POWER OF HARNESS PREPARER FOR HEALTHCARE PERMISSION TO SHARE Vital Signs [...] noted Encounters Code Encounter Date Provider Facility CPT-[id number] Level 4 New Patient 16:02:00 CDT Francisco Javier Rockwell MD [facility] Procedures Code Procedure Name Date Entry Date Standard Description CPT-41153 Cystoscopy 16:02:00 CDT
--- OUTSIDE RECORDS SUMMARY | 2018-04-23 07:50 | XMS REPORT | Clinical Summary ---
Author Author Admin, CLAUDIA Organization [facility] Address Unknown Phone Unavailable Allergies, Adverse Reactions, [...] TABLET 1 tab three times daily BACLOFEN 49491204123 Active Amena Yinvaez Active CYMBALTA 30 MG ORAL CAPSULE DELAYED RELEASE PARTICLES 1 cap by mouth daily DULOXETINE HCL 50003234646 Active Amena Jones Active CYMBALTA 60 MG ORAL CAPSULE DELAYED RELEASE PARTICLES 1 cap by mouth daily DULOXETINE HCL 14096758036 Active Amena Jones Active FLONASE 50 MCG/ACT NASAL SUSPENSION 1 spray each nostril twice daily for allergies and runny nose FLUTICASONE PROPIONATE 05347290314 Active Amena Jones Active GABAPENTIN 600 MG ORAL TABLET 2 tabs BID GABAPENTIN 04279399386 Active Amena Jones Active TRAZODONE HCL 50 MG ORAL TABLET 1 tablet about 90 minutes before bedtime for sleep TRAZODONE HCL 96002348345 Active Amena Jones Active FLOMAX 0.4 MG ORAL CAPSULE 1 capsule by moud every evening for prostate symptoms TAMSULOSIN HCL 10144129218 Active Amena Jones Active METFORMIN HCL 1000 MG ORAL TABLET 1 tablet by mouth twice daily METFORMIN HCL 10691012017 Active Amena Jones Active ATORVASTATIN CALCIUM 80 MG ORAL TABLET 1 po qHS ATORVASTATIN CALCIUM 14610432655 Active Amena Jones Active SIMVASTATIN 5 MG ORAL TABLET once at night SIMVASTATIN 34584804862 No Longer [facility] 1000 MG ORAL TABLET EXTENDED RELEASE 24 HOUR twice daily METFORMIN HCL 92582868102 Active Jeanna Lopes 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 Active LISINOPRIL 10 MG ORAL TABLET once daily LISINOPRIL 94809790752 [facility] Active GLIME[facility]IRIDE 2 MG ORAL TABLET once daily GLIMEPIRIDE 03598247075 Active [facility] Active PLAVIX 75 MG ORAL TABLET once daily CLOPIDOGREL BISULFATE 06038340157 Active [facility] Active ASPIRIN 325 MG ORAL TABLET once daily ASPIRIN 72159374399 [facility] Active Advance Directives Directive Description Start Date DURABLE POWER OF FLITCH HANGER FOR HEALTHCARE PERMISSION TO SHARE Vital Signs [...] noted Encounters Code Encounter Date Provider Facility CPT-06050 Level 4 New Patient 16:02:00 CDT Francisco Javier Rockwell MD [facility] Procedures Code Procedure Name Date Entry Date Standard Description CPT-18741 Cystoscopy 16:02:00 CDT
--- OUTSIDE RECORDS SUMMARY | 2018-04-23 07:50 | XMS REPORT | Clinical Summary ---
Author Author Admin, CLAUDIA Organization [facility] Address Unknown Phone Unavailable Allergies, [...] TABLET 1 tab three times daily BACLOFEN 65332027347 Active Amena Yinvaez Active CYMBALTA 30 MG ORAL CAPSULE DELAYED RELEASE PARTICLES 1 cap by mouth daily DULOXETINE HCL 77209417205 Active Amena Jones Active CYMBALTA 60 MG ORAL CAPSULE DELAYED RELEASE PARTICLES 1 cap by mouth daily DULOXETINE HCL 74762088034 Active Amena Jones Active FLONASE 50 MCG/ACT NASAL SUSPENSION 1 spray each nostril twice daily for allergies and runny nose FLUTICASONE PROPIONATE 10249058638 Active Amena Jones Active GABAPENTIN 600 MG ORAL TABLET 2 tabs BID GABAPENTIN 59018009408 Active Amena Jones Active TRAZODONE HCL 50 MG ORAL TABLET 1 tablet about 90 minutes before bedtime for sleep TRAZODONE HCL 58573770079 Active Amena Jones Active FLOMAX 0.4 MG ORAL CAPSULE 1 capsule by moud every evening for prostate symptoms TAMSULOSIN HCL 77105109555 Active Amena Jones Active METFORMIN HCL 1000 MG ORAL TABLET 1 tablet by mouth twice daily METFORMIN HCL 22607479741 Active Amena Jones Active ATORVASTATIN CALCIUM 80 MG ORAL TABLET 1 po qHS ATORVASTATIN CALCIUM 34872993603 Active Amena Jones Active SIMVASTATIN 5 MG ORAL TABLET once at night SIMVASTATIN 72006725540 No Longer [facility] 1000 MG ORAL TABLET EXTENDED RELEASE 24 HOUR twice daily METFORMIN HCL 15281492909 Active Jeanna Lopes ETHYLBENZENE CONVERTER HELPER Active LISINOPRIL 10 MG ORAL TABLET once daily LISINOPRIL 85444561626 [facility] Active GLIMEPIRIDE 2 MG ORAL TABLET once daily GLIMEPIRIDE 54747032181 Active [facility] Active PLAVIX 75 MG ORAL TABLET once daily CLOPIDOGREL BISULFATE 42004434745 Active [facility] Active ASPIRIN 325 MG ORAL TABLET once daily ASPIRIN 07100232636 [facility] Active Advance Directives Directive Description Start Date DURABLE POWER OF GAMEPLAY PROGRAMMER FOR HEALTHCARE PERMISSION TO SHARE Vital Signs [...] noted Encounters Code Encounter Date Provider Facility CPT-58993 Level 4 New Patient 16:02:00 CDT Francisco Javier Rocwkell MD [facility] Procedures Code Procedure Name Date Entry Date Standard Description CPT-13004 Cystoscopy 16:02:00 CDT
--- OUTSIDE RECORDS SUMMARY | 2018-04-23 07:51 | XMS REPORT | Clinical Summary ---
Author Author Admin, CLAUDIA Organization [facility] Address Unknown Phone Unavailable Allergies, [...] and other lower urinary tract symptoms (LUTS) Medication List Medication Instructions Start Date Stop Date Generic Name NDC Status Provider Patient Instruction BACLOFEN 10 MG ORAL TABLET 1 tab three times daily BACLOFEN 71497325700 Active Amena Jones Active CYMBALTA 30 MG ORAL CAPSULE DELAYED RELEASE PARTICLES 1 cap by mouth daily DULOXETINE HCL 17556522217 Active Amena Jones Active CYMBALTA 60 MG ORAL CAPSULE DELAYED RELEASE PARTICLES 1 cap by mouth daily DULOXETINE HCL 14189929315 Active Amena Jones Active FLONASE 50 MCG/ACT NASAL SUSPENSION 1 spray each nostril twice daily for allergies and runny nose FLUTICASONE PROPIONATE 36558631223 Active Amena Jones Active GABAPENTIN 600 MG ORAL TABLET 2 tabs BID GABAPENTIN 58679218370 Active Amena Jones Active TRAZODONE HCL 50 MG ORAL TABLET 1 tablet about 90 minutes before bedtime for sleep TRAZODONE HCL 35324212239 Active Amena Jones Active FLOMAX 0.4 MG ORAL CAPSULE 1 capsule by moudth every evening for prostate symptoms TAMSULOSIN HCL 71501493144 Active Amena Jones Active METFORMIN HCL 1000 MG ORAL TABLET 1 tablet by mouth twice daily METFORMIN HCL 46407369921 Active Amena Yinvaez Active ATORVASTATIN CALCIUM 80 MG ORAL TABLET 1 po qHS ATORVASTATIN CALCIUM 11605787825 Active Amena Jones Active SIMVASTATIN 5 MG ORAL TABLET once at night SIMVASTATIN 29353820458 No Longer Active Jeanna Lopes WEATHERCASTER Active FORTAMET 1000 MG ORAL TABLET EXTENDED RELEASE 24 HOUR twice daily METFORMIN HCL 29485785856 Active Jeanna Lopes WEATHERCASTER Active LISINOPRIL 10 MG ORAL TABLET once daily LISINOPRIL 75710254855 Active Jeanna Lopes WEATHERCASTER Active GLIMEPIRIDE 2 MG ORAL TABLET once daily GLIMEPIRIDE 29080484227 Active Jeanna Lopes WEATHERCASTER Active PLAVIX 75 MG ORAL TABLET once daily CLOPIDOGREL BISULFATE 56127948629 Active Jeanna Lopes WEATHERCASTER Active ASPIRIN 325 MG ORAL TABLET once daily ASPIRIN 81237968260 Active Jeanna Lopes WEATHERCASTER Active Advance Directives Directive Description Start Date DURABLE POWER OF QUALITY CONTROL FOR HEALTHCARE PERMISSION TO SHARE Vital Signs Date Name Value Unit Range Description blood pressure, diastolic, repeated by physician 64 [...] noted Encounters Code Encounter Date Provider Facility CPT-53592 Level 4 New Patient 16:02:[address] [facility] Procedures Code Procedure Name Date Entry Date Standard Description CPT-85726 Cystoscopy 16:02:00 CDT
--- OUTSIDE RECORDS SUMMARY | 2018-04-23 07:51 | XMS REPORT | Clinical Summary ---
Author Author Admin, CLAUDIA Organization [facility] Address Unknown Phone Unavailable Allergies, [...] TABLET 1 tab three times daily BACLOFEN 16267038545 Active Amena Jones Active CYMBALTA 30 MG ORAL CAPSULE DELAYED RELEASE PARTICLES 1 cap by mouth daily DULOXETINE HCL 14861468286 Active Amena Jones Active CYMBALTA 60 MG ORAL CAPSULE DELAYED RELEASE PARTICLES 1 cap by mouth daily DULOXETINE HCL 92911510361 Active Amena Jones Active FLONASE 50 MCG/ACT NASAL SUSPENSION 1 spray each nostril twice daily for allergies and runny nose FLUTICASONE PROPIONATE 12123385384 Active Amena Jones Active GABAPENTIN 600 MG ORAL TABLET 2 tabs BID GABAPENTIN 37717838489 Active Amena Jones Active TRAZODONE HCL 50 MG ORAL TABLET 1 tablet about 90 minutes before bedtime for sleep TRAZODONE HCL 47864384589 Active Amena Jones Active FLOMAX 0.4 MG ORAL CAPSULE 1 capsule by moud every evening for prostate symptoms TAMSULOSIN HCL 49945814698 Active Amena Jones Active METFORMIN HCL 1000 MG ORAL TABLET 1 tablet by mouth twice daily METFORMIN HCL 83389845271 Active Amena Jones Active ATORVASTATIN CALCIUM 80 MG ORAL TABLET 1 po qHS ATORVASTATIN CALCIUM 98117407198 Active Amena Jones Active SIMVASTATIN 5 MG ORAL TABLET once at night SIMVASTATIN 87979591690 No Longer Active Jeanna Lopes LINUX SOLARIS ADMINISTRATOR Active FORTAMET 1000 MG ORAL TABLET EXTENDED RELEASE 24 HOUR twice daily METFORMIN HCL 97717356882 [facility] Active LISINOPRIL 10 MG ORAL TABLET once daily LISINOPRIL 28741889360 Active [facility] Active GLIMEPIRIDE 2 MG ORAL TABLET once daily GLIMEPIRIDE 11013440595 Active [facility] Active PLAVIX 75 MG ORAL TABLET once daily CLOPIDOGREL BISULFATE 94347372547 Active [facility] Active ASPIRIN 325 MG ORAL TABLET once daily ASPIRIN 82681843830 Active [facility] Active Advance Directives Directive Description Start Date DURABLE POWER OF FRAMING MACHINE TENDER FOR HEALTHCARE PERMISSION TO SHARE Vital Signs Date Name Value Unit Range Description blood pressure, diastolic, repeated by physician 65 [...] noted Encounters Code Encounter Date Provider Facility CPT-40706 Level 4 New Patient 16:02:00 CDT Francisco Javier Rockwell MD [facility] Procedures Code Procedure Name Date Entry Date Standard Description CPT-04357 Cystoscopy 16:02:00 CDT
--- OUTSIDE RECORDS SUMMARY | 2018-04-23 07:51 | XMS REPORT | Clinical Summary ---
Author Author Admin, CLAUDIA Organization [facility] Address Unknown Phone Unavailable Allergies, Adverse Reactions, [...] TABLET 1 tab three times daily BACLOFEN 63873809341 Active Amena Jones Active CYMBALTA 30 MG ORAL CAPSULE DELAYED RELEASE PARTICLES 1 cap by mouth daily DULOXETINE HCL 66124768850 Active Amena Jones Active CYMBALTA 60 MG ORAL CAPSULE DELAYED RELEASE PARTICLES 1 cap by mouth daily DULOXETINE HCL 15337995606 Active Amena Jones Active FLONASE 50 MCG/ACT NASAL SUSPENSION 1 spray each nostril twice daily for allergies and runny nose FLUTICASONE PROPIONATE 22070818836 Active Amena Jones Active GABAPENTIN 600 MG ORAL TABLET 2 tabs BID GABAPENTIN 96047679599 Active Amena Jones Active TRAZODONE HCL 50 MG ORAL TABLET 1 tablet about 90 minutes before bedtime for sleep TRAZODONE HCL 57604039502 Active Amena Jones Active FLOMAX 0.4 MG ORAL CAPSULE 1 capsule by moud every evening for prostate symptoms TAMSULOSIN HCL 24966574868 Active Amena Jones Active METFORMIN HCL 1000 MG ORAL TABLET 1 tablet by mouth twice daily METFORMIN HCL 27383930785 Active Amena Jones Active ATORVASTATIN CALCIUM 80 MG ORAL TABLET 1 po qHS ATORVASTATIN CALCIUM 77389746567 Active Amena Jones Active SIMVASTATIN 5 MG ORAL TABLET once at night SIMVASTATIN 92221705286 No Longer Active Jeanna Lopes SIGNAL MAINTAINER Active FORTAMET 1000 MG ORAL TABLET EXTENDED RELEASE 24 HOUR twice daily METFORMIN HCL 76678803233 [facility] LISINOPRIL 10 MG ORAL TABLET once daily LISINOPRIL 49962035254 [facility] Active GLIMEPIRIDE 2 MG ORAL TABLET once daily GLIMEPIRIDE 98509508376 Active [facility] Active PLAVIX 75 MG ORAL TABLET once daily CLOPIDOGREL BISULFATE 34693047954 Active [facility] Active ASPIRIN 325 MG ORAL TABLET once daily ASPIRIN 33479152766 [facility] Active Advance Directives Directive Description Start Date DURABLE POWER OF COMMUNICATION SPECIALIST FOR HEALTHCARE PERMISSION TO SHARE Vital Signs [...] noted Encounters Code Encounter Date Provider Facility CPT-21232 Level 4 New Patient 16:02:00 CDT Francisco Javier Rockwell MD [facility] Procedures Code Procedure Name Date Entry Date Standard Description CPT-01767 Cystoscopy 16:02:00 CDT
--- OUTSIDE RECORDS SUMMARY | 2018-04-23 07:51 | XMS REPORT | Clinical Summary ---
Author Author Admin, CLAUDIA Organization [facility] Address Unknown Phone Unavailable Allergies, [...] TABLET 1 tab three times daily BACLOFEN 85021964497 Active Amena Jones Active CYMBALTA 30 MG ORAL CAPSULE DELAYED RELEASE PARTICLES 1 cap by mouth daily DULOXETINE HCL 74760415583 Active Amena Jones Active CYMBALTA 60 MG ORAL CAPSULE DELAYED RELEASE PARTICLES 1 cap by mouth daily DULOXETINE HCL 63357923984 Active Amena Jones Active FLONASE 50 MCG/ACT NASAL SUSPENSION 1 spray each nostril twice daily for allergies and runny nose FLUTICASONE PROPIONATE 60758745513 Active Amena Jones Active GABAPENTIN 600 MG ORAL TABLET 2 tabs BID GABAPENTIN 69531677828 Active Amena Jones Active TRAZODONE HCL 50 MG ORAL TABLET 1 tablet about 90 minutes before bedtime for sleep TRAZODONE HCL 57528682777 Active Amena Jones Active FLOMAX 0.4 MG ORAL CAPSULE 1 capsule by moudth every evening for prostate symptoms TAMSULOSIN HCL 19548397197 Active Amena Jones Active METFORMIN HCL 1000 MG ORAL TABLET 1 tablet by mouth twice daily METFORMIN HCL 49819066036 Active Amena Yinvaez Active ATORVASTATIN CALCIUM 80 MG ORAL TABLET 1 po qHS ATORVASTATIN CALCIUM 30817494552 Active Amena Jones Active SIMVASTATIN 5 MG ORAL TABLET once at night SIMVASTATIN 23984877104 No Longer Active Jeanna Lopes PEDIATRIC DENTAL HYGIENIST Active FORTAMET 1000 MG ORAL TABLET EXTENDED RELEASE 24 HOUR twice daily METFORMIN HCL 12811174002 Active Jeanna Lopes PEDIATRIC DENTAL HYGIENIST Active LISINOPRIL 10 MG ORAL TABLET once daily LISINOPRIL 61336468577 Active Jeanna Lopes PEDIATRIC DENTAL HYGIENIST Active GLIMEPIRIDE 2 MG ORAL TABLET once daily GLIMEPIRIDE 46882530507 Active Jeanna Lopes PEDIATRIC DENTAL HYGIENIST Active PLAVIX 75 MG ORAL TABLET once daily CLOPIDOGREL BISULFATE 13060004993 Active Jeanna Lopes PEDIATRIC DENTAL HYGIENIST Active ASPIRIN 325 MG ORAL TABLET once daily ASPIRIN 14524147360 Active Jeanna Lopes PEDIATRIC DENTAL HYGIENIST Active Advance Directives Directive Description Start Date DURABLE POWER OF HAT MAKER FOR HEALTHCARE PERMISSION TO SHARE Vital Signs [...] noted Encounters Code Encounter Date Provider Facility CPT-58471 Level 4 New Patient 16:02:[address] [facility] Procedures Code Procedure Name Date Entry Date Standard Description CPT-67588 Cystoscopy 16:02:00 CDT
--- OUTSIDE RECORDS SUMMARY | 2018-04-23 07:51 | XMS REPORT | Clinical Summary ---
Author Author Admin, CLAUDIA Organization [facility] Address Unknown Phone Unavailable Allergies, Adverse [...] TABLET 1 tab three times daily BACLOFEN 27013339517 Active Amena Jones Active CYMBALTA 30 MG ORAL CAPSULE DELAYED RELEASE PARTICLES 1 cap by mouth daily DULOXETINE HCL 54941076188 Active Amena Jones Active CYMBALTA 60 MG ORAL CAPSULE DELAYED RELEASE PARTICLES 1 cap by mouth daily DULOXETINE HCL 16399809527 Active Amena Jones Active FLONASE 50 MCG/ACT NASAL SUSPENSION 1 spray each nostril twice daily for allergies and runny nose FLUTICASONE PROPIONATE 37586450839 Active Amena Jones Active GABAPENTIN 600 MG ORAL TABLET 2 tabs BID GABAPENTIN 86094355753 Active Amena Jones Active TRAZODONE HCL 50 MG ORAL TABLET 1 tablet about 90 minutes before bedtime for sleep TRAZODONE HCL 05112487970 Active Amena Jones Active FLOMAX 0.4 MG ORAL CAPSULE 1 capsule by moudth every evening for prostate symptoms TAMSULOSIN HCL 01994845555 Active Amena Yinvaez Active METFORMIN HCL 1000 MG ORAL TABLET 1 tablet by mouth twice daily METFORMIN HCL 63686709876 Active Amena Yinvaez Active ATORVASTATIN CALCIUM 80 MG ORAL TABLET 1 po qHS ATORVASTATIN CALCIUM 24303373346 Active Amena Jones Active SIMVASTATIN 5 MG ORAL TABLET once at night SIMVASTATIN 75655680168 No Longer Active Jeanna Lopes ENGINEER SERGEANT Active FORTAMET 1000 MG ORAL TABLET EXTENDED RELEASE 24 HOUR twice daily METFORMIN HCL 98191246930 Active Jeanna Lopes ENGINEER SERGEANT Active LISINOPRIL 10 MG ORAL TABLET once daily LISINOPRIL 65574246756 Active Jeanna Lopes ENGINEER SERGEANT Active GLIMEPIRIDE 2 MG ORAL TABLET once daily GLIMEPIRIDE 81100998383 Active Jeanna Lopes ENGINEER SERGEANT Active PLAVIX 75 MG ORAL TABLET once daily CLOPIDOGREL BISULFATE 82346317683 Active Jeanna Lopes ENGINEER SERGEANT Active ASPIRIN 325 MG ORAL TABLET once daily ASPIRIN 70895146284 Active Jeanna Lopes ENGINEER SERGEANT Active Vital Signs Date Name Value Unit Range [...] noted Encounters Code Encounter Date Provider Facility CPT-60470 Level 4 New Patient 16:02:00 CDT Francisco Javier Rockwell MD [facility] Procedures Code Procedure Name Date Entry Date Standard Description CPT-71712 Cystoscopy 16:02:00 CDT
--- OUTSIDE RECORDS SUMMARY | 2018-04-23 07:51 | XMS REPORT | Clinical Summary ---
Author Author Admin, CLAUDIA Organization [facility] Address Unknown Phone Unavailable Allergies, [...] TABLET 1 tab three times daily BACLOFEN [id number] Active Amena Jones Active CYMBALTA 30 MG ORAL CAPSULE DELAYED RELEASE PARTICLES 1 cap by mouth daily DULOXETINE HCL 21670054812 Active Amena Jones Active CYMBALTA 60 MG ORAL CAPSULE DELAYED RELEASE PARTICLES 1 cap by mouth daily DULOXETINE HCL 59664857096 Active Amena Jones Active FLONASE 50 MCG/ACT NASAL SUSPENSION 1 spray each nostril twice daily for allergies and runny nose FLUTICASONE PROPIONATE 26741743253 Active Amena Jones Active GABAPENTIN 600 MG ORAL TABLET 2 tabs BID GABAPENTIN 34521655937 Active Amena Jones Active TRAZODONE HCL 50 MG ORAL TABLET 1 tablet about 90 minutes before bedtime for sleep TRAZODONE HCL 35245053352 Active Amena Jones Active FLOMAX 0.4 MG ORAL CAPSULE 1 capsule by moudth every evening for prostate symptoms TAMSULOSIN HCL 34172558123 Active Amena Jones Active METFORMIN HCL 1000 MG ORAL TABLET 1 tablet by mouth twice daily METFORMIN HCL 32747031824 Active Amena Jones Active ATORVASTATIN CALCIUM 80 MG ORAL TABLET 1 po qHS ATORVASTATIN CALCIUM 64845398847 Active Amena Jones Active SIMVASTATIN 5 MG ORAL TABLET once at night SIMVASTATIN 58523193863 No Longer Active Jeanna Lopes PATROL SERGEANT [employer]ER[employer]ICE Active FORTAMET 1000 MG ORAL TABLET EXTENDED RELEASE 24 HOUR twice daily METFORMIN HCL 12019719972 [facility] Active LISINOPRIL 10 MG ORAL TABLET once daily LISINOPRIL 97850144389 Active Jeanna Lopes PATROL SERGEANT [employer]ER[employer]ICE Active GLIMEPIRIDE 2 MG ORAL TABLET once daily GLIMEPIRIDE 40403940035 Active [facility] Active PLAVIX 75 MG ORAL TABLET once daily CLOPIDOGREL BISULFATE 87855932589 Active [facility] Active ASPIRIN 325 MG ORAL TABLET once daily ASPIRIN 61683366347 Active Je[facility] Active Advance Directives Directive Description Start Date DURABLE POWER OF WORKFORCE MANAGEMENT CONSULTANT FOR HEALTHCARE PERMISSION TO SHARE Vital Signs [...] noted Encounters Code Encounter Date Provider Facility [id number] Level 4 New Patient 16:02:00 CDT Francisco Javier Rockwell MD [facility] Procedures Code Procedure Name Date Entry Date Standard Description CPT-[id number] Cystoscopy 16:02:00 CDT
--- OUTSIDE RECORDS SUMMARY | 2018-04-23 07:51 | XMS REPORT | Clinical Summary ---
Author Author Admin, CLAUDIA Organization [facility] Address Unknown Phone Unavailable Allergies, Adverse [...] TABLET 1 tab three times daily BACLOFEN 61608497816 Active Amena Jones Active CYMBALTA 30 MG ORAL CAPSULE DELAYED RELEASE PARTICLES 1 cap by mouth daily DULOXETINE HCL 84824527555 Active Amena Jones Active CYMBALTA 60 MG ORAL CAPSULE DELAYED RELEASE PARTICLES 1 cap by mouth daily DULOXETINE HCL 18792134891 Active Amena Jones Active FLONASE 50 MCG/ACT NASAL SUSPENSION 1 spray each nostril twice daily for allergies and runny nose FLUTICASONE PROPIONATE 62687149685 Active Amena Jones Active GABAPENTIN 600 MG ORAL TABLET 2 tabs BID GABAPENTIN 10652301712 Active Amena Jones Active TRAZODONE HCL 50 MG ORAL TABLET 1 tablet about 90 minutes before bedtime for sleep TRAZODONE HCL 76532687194 Active Amnea Jones Active FLOMAX 0.4 MG ORAL CAPSULE 1 capsule by moudth every evening for prostate symptoms TAMSULOSIN HCL 71603257380 Active Amena Jones Active METFORMIN HCL 1000 MG ORAL TABLET 1 tablet by mouth twice daily METFORMIN HCL 67686054110 Active Amena Jones Active ATORVASTATIN CALCIUM 80 MG ORAL TABLET 1 po qHS ATORVASTATIN CALCIUM 44831171442 Active Amena Jones Active SIMVASTATIN 5 MG ORAL TABLET once at night SIMVASTATIN 04558726802 No Longer Active Jeanna Lopes POMOLOGY TEACHER Active FORTAMET 1000 MG ORAL TABLET EXTENDED RELEASE 24 HOUR twice daily METFORMIN HCL 05578947551 [facility] LISINOPRIL 10 MG ORAL TABLET once daily LISINOPRIL 45105532004 Active Jeanna Lopes POMOLOGY TEACHER Active GLIMEPIRIDE 2 MG ORAL TABLET once daily GLIMEPIRIDE 28476094637 Active [facility] Active PLAVIX 75 MG ORAL TABLET once daily CLOPIDOGREL BISULFATE 46088461959 Active [facility] Active ASPIRIN 325 MG ORAL TABLET once daily ASPIRIN 91973316406 Active [facility] Active Advance Directives Directive Description Start Date DURABLE POWER OF ADMINISTRATIVE COURT JUSTICE FOR HEALTHCARE PERMISSION TO SHARE Vital Signs [...] noted Encounters Code Encounter Date Provider Facility [id number] Level 4 New Patient 16:02:00 CDT Francisco Javier Rockwell MD [facility] Procedures Code Procedure Name Date Entry Date Standard Description CPT-48592 Cystoscopy 16:02:00 CDT
--- OUTSIDE RECORDS SUMMARY | 2018-04-23 07:51 | XMS REPORT | Clinical Summary ---
Author Author Admin, CLAUDIA Organization [facility] Address Unknown Phone Unavailable Allergies, Adverse Reactions, [...] TABLET 1 tab three times daily BACLOFEN 82633108654 Active Amena Jones Active CYMBALTA 30 MG ORAL CAPSULE DELAYED RELEASE PARTICLES 1 cap by mouth daily DULOXETINE HCL 04091146005 Active Amena Jones Active CYMBALTA 60 MG ORAL CAPSULE DELAYED RELEASE PARTICLES 1 cap by mouth daily DULOXETINE HCL 87618820949 Active Amena Jones Active FLONASE 50 MCG/ACT NASAL SUSPENSION 1 spray each nostril twice daily for allergies and runny nose FLUTICASONE PROPIONATE 39116997724 Active Amena Jones Active GABAPENTIN 600 MG ORAL TABLET 2 tabs BID GABAPENTIN 05680743603 Active Amena Jones Active TRAZODONE HCL 50 MG ORAL TABLET 1 tablet about 90 minutes before bedtime for sleep TRAZODONE HCL 68918839811 Active Amena Jones Active FLOMAX 0.4 MG ORAL CAPSULE 1 capsule by moudth every evening for prostate symptoms TAMSULOSIN HCL 46329993939 Active Amena Jones Active METFORMIN HCL 1000 MG ORAL TABLET 1 tablet by mouth twice daily METFORMIN HCL 65578552139 Active Amena Yinvaez Active ATORVASTATIN CALCIUM 80 MG ORAL TABLET 1 po qHS ATORVASTATIN CALCIUM 02422104852 Active Amena Jones Active SIMVASTATIN 5 MG ORAL TABLET once at night SIMVASTATIN 60374839346 No Longer Active Jeanna Lopes MACHINE MOLDER Active FORTAMET 1000 MG ORAL TABLET EXTENDED RELEASE 24 HOUR twice daily METFORMIN HCL 18412303743 Active Jeanna Lopes MACHINE MOLDER Active LISINOPRIL 10 MG ORAL TABLET once daily LISINOPRIL 19653339898 Active Jeanna Lopes MACHINE MOLDER Active GLIMEPIRIDE 2 MG ORAL TABLET once daily GLIMEPIRIDE 59209393362 Active Jeanna Lopes MACHINE MOLDER Active PLAVIX 75 MG ORAL TABLET once daily CLOPIDOGREL BISULFATE 89786510353 Active Jeanna Lopes MACHINE MOLDER Active ASPIRIN 325 MG ORAL TABLET once daily ASPIRIN 53778199274 Active Jeanna Lopes MACHINE MOLDER Active Advance Directives Directive Description Start Date DURABLE POWER OF NAPPER FIXER FOR HEALTHCARE PERMISSION TO SHARE Vital Signs [...] noted Encounters Code Encounter Date Provider Facility CPT-[id number] Level 4 New Patient 16:02:00 DIONI Rockwell MD [facility] Procedures Code Procedure Name Date Entry Date Standard Description CPT-[id number] Cystoscopy 16:02:00 CDT
--- OUTSIDE RECORDS SUMMARY | 2018-04-23 07:52 | XMS REPORT | Clinical Summary ---
Author Author Admin, [facility] Organization [facility] Address Unknown Phone Unavailable Allergies, Adverse Reactions, Alerts Allergy Name Reaction Description Start Date Severity Status Provider Allergies Unknown Conditions or Problems Problem Name Problem Code Onset Date Status Entry Date Provider Comment Standard Description Annotate Problems Unknown Active Medication List Medication Instructions Start Date Stop Date Generic Name NDC Status Provider Patient Instruction SIMVASTATIN 5 MG ORAL TABLET once at night SIMVASTATIN 89182791932 [facility] FORT[facility] 1000 MG ORAL TABLET EXTENDED RELEASE 24 HOUR twice daily METFORMIN HCL 91383483073 [facility] Active LISINOPRIL 10 MG ORAL TABLET once daily LISINOPRIL 17161435120 Active [facility] Active GLIMEPIRIDE 2 MG ORAL TABLET once daily GLIMEPIRIDE 92636685225 Active Jeanna Lopes COAL AND ASH SUPERVISOR Active PLAVIX 75 MG ORAL TABLET once daily CLOPIDOGREL BISULFATE 82907828857 [facility] Active ASPIRIN 325 MG ORAL TABLET once daily ASPIRIN 89042181133 Active Jeanna Lopes COAL AND ASH SUPERVISOR Active
--- OUTSIDE RECORDS SUMMARY | 2018-04-23 07:52 | XMS REPORT | Continuity of Care Document ---
Author Author [facility] Organization [facility] Address Unknown Phone Unavailable Allergies Active Description Code Type Severity Reaction Onset Reported/Identified Relationship to Patient Clinical Status Yes Influenza Virus Vaccine Drug Moderate [id number] Yes FLU SHOT FLU SHOT Mild N/A 05/22/2009 Yes Influenza Virus Vaccines [id number] Drug Allergy Unknown N/A 05/23/2009 Medications There is no data. Problems Date Dx Coded Attending Type Code Diagnosis Diagnosed By 01/14/1358 BENNY PEDRAZA Ot E11.9 TYPE 2 DIABETES MELLITUS WITHOUT COMPLIC 01/14/1358 BENNY PEDRAZA Ot F17.210 NICOTINE DEPENDENCE, CIGARETTES, UNCOMPL 01/14/1358 BENNY PEDRAZA Ot I10 ESSENTIAL (PRIMARY) HYPERTENSION 01/14/1358 BENNY PEDRAZA Ot I69.354 HEMIPLGA FOLLOWING CEREBRAL INFRC AFFECT 02/08/2017 PATT RODRIGUEZ MD Ot J11.1 FLU DUE TO UNIDENTIFIED INFLUENZA VIRUS 02/08/2017 PATT RODRIGUEZ MD Ot R05 COUGH 02/08/2017 PATT RODRIGUEZ MD Ot Z79.82 TECHNICAL BUSINESS ANALYST (CURRENT) USE OF ASPIRIN 03/18/2017 NNEKA MARTIN MD Ot E11.9 TYPE 2 DIABETES MELLITUS WITHOUT COMPLIC 03/18/2017 NNEKA MARTIN MD, Ot E78.5 HYPERLIPIDEMIA, UNSPECIFIED 03/18/2017 NNEKA MARTIN MD Ot F17.210 NICOTINE DEPENDENCE, CIGARETTES, UNCOMPL 03/18/2017 NNEKA MARTIN MD Ot I10 ESSENTIAL (PRIMARY) HYPERTENSION 03/18/2017 NNEKA MARTIN MD, Ot I69.354 HEMIPLGA FOLLOWING CEREBRAL INFRC AFFECT 03/18/2017 NNEKA MARTIN MD Ot I71.4 ABDOMINAL AORTIC ANEURYSM, WITHOUT RUPTU 03/18/2017 NNEKA MARTIN MD Ot K21.9 GASTRO-ESOPHAGEAL REFLUX DISEASE WITHOUT 03/18/2017 NNEKA MARTIN MD Ot R11.0 NAUSEA 03/18/2017 NNEKA MARTIN MD Ot Z79.84 TECHNICAL BUSINESS ANALYST (CURRENT) USE OF ORAL HYPOGLYC 03/25/2017 NNEKA MARTIN MD E Ot E11.9 TYPE 2 DIABETES MELLITUS WITHOUT COMPLIC 03/25/2017 NNEKA MARTIN MD E Ot E78.5 HYPERLIPIDEMIA, UNSPECIFIED 03/25/2017 VERONICA FRANCISCO NNEKA E Ot F17.210 NICOTINE DEPENDENCE, CIGARETTES, UNCOMPL 03/25/2017 RACHEL MARTIN MDIC E Ot I10 ESSENTIAL (PRIMARY) HYPERTENSION 03/25/2017 RACHEL MARTIN MDIC E Ot I69.354 HEMIPLGA FOLLOWING CEREBRAL INFRC AFFECT 03/25/2017 RACHEL MARTIN MDIC E Ot I71.4 ABDOMINAL AORTIC ANEURYSM, WITHOUT RUPTU 03/25/2017 NNEKA MARTIN MD E Ot K21.9 GASTRO-ESOPHAGEAL REFLUX DISEASE WITHOUT 03/25/2017 RACHEL MARTIN MDIC E Ot R11.0 NAUSEA 03/25/2017 NNEKA MARTIN MD E Ot Z79.84 ALF (CURRENT) USE OF ORAL HYPOGLYC 04/01/2017 NNEKA MARTIN MD E Ot E11.9 TYPE 2 DIABETES MELLITUS WITHOUT COMPLIC 04/01/2017 NNEKA MARTIN MD E Ot E78.5 HYPERLIPIDEMIA, UNSPECIFIED 04/01/2017 VERONICA FRANCISCO NNEKA E Ot F17.210 NICOTINE DEPENDENCE, CIGARETTES, UNCOMPL 04/01/2017 VERONICA FRANCISCO NNEKA E Ot I10 ESSENTIAL (PRIMARY) HYPERTENSION 04/01/2017 RACHEL MARTIN MDIC E Ot I69.354 HEMIPLGA FOLLOWING CEREBRAL INFRC AFFECT 04/01/2017 RACHEL MARTIN MDIC E Ot I71.4 ABDOMINAL AORTIC ANEURYSM, WITHOUT RUPTU 04/01/2017 VERONICA FRANCISCO NNEKA E Ot K21.9 GASTRO-ESOPHAGEAL REFLUX DISEASE WITHOUT 04/01/2017 VERONICA FRANCISCO NNEKA E Ot R11.0 NAUSEA 04/01/2017 VERONICA FRANCISCO NNEKA E Ot Z79.84 TECHNICAL BUSINESS ANALYST (CURRENT) USE OF ORAL HYPOGLYC 04/08/2017 NNEKA MARTIN MD E Ot E11.9 TYPE 2 DIABETES MELLITUS WITHOUT COMPLIC 04/08/2017 NNEKA MARTIN MD E Ot E78.5 HYPERLIPIDEMIA, UNSPECIFIED 04/08/2017 VERONICA FRANCISCO NNEKA E Ot F17.210 NICOTINE DEPENDENCE, CIGARETTES, UNCOMPL 04/08/2017 VERONICA FRANCISCO NNEKA E Ot I10 ESSENTIAL (PRIMARY) HYPERTENSION 04/08/2017 NNEKA MARTIN MD E Ot I69.354 HEMIPLGA FOLLOWING CEREBRAL INFRC AFFECT 04/08/2017 NNEKA MARTIN MD E Ot I71.4 ABDOMINAL AORTIC ANEURYSM, WITHOUT RUPTU 04/08/2017 NNEKA MARTIN MD E Ot K21.9 GASTRO-ESOPHAGEAL REFLUX DISEASE WITHOUT 04/08/2017 NNEKA MARTIN MD E Ot R11.0 NAUSEA 04/08/2017 NNEKA MARTIN MD E Ot Z79.84 ALF (CURRENT) USE OF ORAL HYPOGLYC 04/09/2017 NNEKA MARTIN MD Ot E11.9 TYPE 2 DIABETES MELLITUS WITHOUT COMPLIC 04/09/2017 NNEKA MARTIN MD E Ot E78.5 HYPERLIPIDEMIA, UNSPECIFIED 04/09/2017 NNEKA MARTIN MD E Ot F17.210 NICOTINE DEPENDENCE, CIGARETTES, UNCOMPL 04/09/2017 NNEKA MARTIN MD Ot I10 ESSENTIAL (PRIMARY) HYPERTENSION 04/09/2017 NNEKA MARTIN MD Ot I69.354 HEMIPLGA FOLLOWING CEREBRAL INFRC AFFECT 04/09/2017 NNEKA MARTIN MD Ot I71.4 ABDOMINAL AORTIC ANEURYSM, WITHOUT RUPTU 04/09/2017 NNEKA MARTIN MD E Ot K21.9 GASTRO-ESOPHAGEAL REFLUX DISEASE WITHOUT 04/09/2017 NNEKA MARTIN MD E Ot K59.00 CONSTIPATION, UNSPECIFIED 04/09/2017 NNEKA MARTIN MD E Ot R11.0 NAUSEA 04/09/2017 NNEKA MARTIN MD E Ot Z79.84 TECHNICAL BUSINESS ANALYST (CURRENT) USE OF ORAL HYPOGLYC 06/14/2017 BENNY PEDRAZA INTAKE SPECIALIST Ot E11.9 TYPE 2 DIABETES MELLITUS WITHOUT COMPLIC 06/14/2017 BENNY PEDRAZA INTAKE SPECIALIST Ot F17.210 NICOTINE DEPENDENCE, CIGARETTES, UNCOMPL 06/14/2017 BENNY PEDRAZA INTAKE SPECIALIST Ot I10 ESSENTIAL (PRIMARY) HYPERTENSION 06/14/2017 BENNY PEDRAZA INTAKE SPECIALIST Ot I69.354 HEMIPLGA FOLLOWING CEREBRAL INFRC AFFECT 06/14/2017 BENNY PEDRAZA INTAKE SPECIALIST Ot E11.9 TYPE 2 DIABETES MELLITUS WITHOUT COMPLIC 06/14/2017 BENNY PEDRAZA INTAKE SPECIALIST Ot F17.210 NICOTINE DEPENDENCE, CIGARETTES, UNCOMPL 06/14/2017 BENNY PEDRAZA INTAKE SPECIALIST Ot I10 ESSENTIAL (PRIMARY) HYPERTENSION 06/14/2017 BENNY PEDRAZA INTAKE SPECIALIST Ot I69.354 HEMIPLGA FOLLOWING CEREBRAL INFRC AFFECT 07/03/2017 VAZQUEZ MULLEN MD Ot E11.9 TYPE 2 DIABETES MELLITUS WITHOUT COMPLIC 07/03/2017 VAZQUEZ MULLEN MD Ot E78.00 PURE HYPERCHOLESTEROLEMIA, UNSPECIFIED 07/03/2017 VAZQUEZ MULLEN MD Ot F17.210 NICOTINE DEPENDENCE, CIGARETTES, UNCOMPL 07/03/2017 VAZQUEZ MULLEN MD Ot I10 ESSENTIAL (PRIMARY) HYPERTENSION 07/03/2017 VAZQUEZ MULLEN MD Ot K21.9 GASTRO-ESOPHAGEAL REFLUX DISEASE WITHOUT 07/03/2017 VAZQUEZ MULLEN MD Ot R07.89 OTHER CHEST PAIN 07/03/2017 VAZQUEZ MULLEN MD Ot Z79.82 ALF (CURRENT) USE OF ASPIRIN 07/03/2017 VAZQUEZ MULLEN MD Ot Z79.84 TECHNICAL BUSINESS ANALYST (CURRENT) USE OF ORAL HYPOGLYC 07/03/2017 VAZQUEZ MULLEN MD Ot Z86.73 PRSNL HX OF TIA (TIA), AND CEREB INFRC W 07/03/2017 VAZQUEZ MULLEN MD Ot Z88.7 ALLERGY STATUS TO SERUM AND VACCINE STAT 07/05/2017 VAZQUEZ MULLEN MD Ot E11.9 TYPE 2 DIABETES MELLITUS WITHOUT COMPLIC 07/05/2017 VAZQUEZ MULLEN MD Ot E78.00 PURE HYPERCHOLESTEROLEMIA, UNSPECIFIED 07/05/2017 VAZQUEZ MULLEN MD Ot F17.210 NICOTINE DEPENDENCE, CIGARETTES, UNCOMPL 07/05/2017 VAZQUEZ MULLEN MD Ot I10 ESSENTIAL (PRIMARY) HYPERTENSION 07/05/2017 VAZQUEZ MULLEN MD Ot K21.9 GASTRO-ESOPHAGEAL REFLUX DISEASE WITHOUT 07/05/2017 VAZQUEZ MULLEN MD Ot R07.89 OTHER CHEST PAIN 07/05/2017 VAZQUEZ MULLEN MD Ot Z79.82 TECHNICAL BUSINESS ANALYST (CURRENT) USE OF ASPIRIN 07/05/2017 VAZQUEZ MULLEN MD Ot Z79.84 ALF (CURRENT) USE OF ORAL HYPOGLYC 07/05/2017 VAZQUEZ MULLEN MD Ot Z86.73 PRSNL HX OF TIA (TIA), AND CEREB INFRC W 07/05/2017 VAZQUEZ MULLEN MD Ot Z88.7 ALLERGY STATUS TO SERUM AND VACCINE STAT 07/06/2017 PEDRAZA, BENNY J INTAKE SPECIALIST Ot E11.9 TYPE 2 DIABETES MELLITUS WITHOUT COMPLIC 07/06/2017 MILO BENNY J INTAKE SPECIALIST Ot F17.210 NICOTINE DEPENDENCE, CIGARETTES, UNCOMPL 07/06/2017 MILO BENNY J INTAKE SPECIALIST Ot I10 ESSENTIAL (PRIMARY) HYPERTENSION 07/06/2017 MILO BENNY J INTAKE SPECIALIST Ot I69.354 HEMIPLGA FOLLOWING CEREBRAL INFRC AFFECT 08/26/2017 MILO BENNY J INTAKE SPECIALIST Ot E11.9 TYPE 2 DIABETES MELLITUS WITHOUT COMPLIC 08/26/2017 MILO BENNY J INTAKE SPECIALIST Ot F17.210 NICOTINE DEPENDENCE, CIGARETTES, UNCOMPL 08/26/2017 MILO BENNY J INTAKE SPECIALIST Ot I10 ESSENTIAL (PRIMARY) HYPERTENSION 08/26/2017 MILO BENNY J INTAKE SPECIALIST Ot I69.354 HEMIPLGA FOLLOWING CEREBRAL INFRC AFFECT 08/27/2017 MILO BENNY J INTAKE SPECIALIST Ot E11.9 TYPE 2 DIABETES MELLITUS WITHOUT COMPLIC 08/27/2017 BENNY PEDRAZA INTAKE SPECIALIST Ot F17.210 NICOTINE DEPENDENCE, CIGARETTES, UNCOMPL 08/27/2017 MILO BENNY J INTAKE SPECIALIST Ot I10 ESSENTIAL (PRIMARY) HYPERTENSION 08/27/2017 MILO BENNY J INTAKE SPECIALIST Ot I69.354 HEMIPLGA FOLLOWING CEREBRAL INFRC AFFECT 08/31/2017 MILO BENNY J INTAKE SPECIALIST Ot E11.9 TYPE 2 DIABETES MELLITUS WITHOUT COMPLIC 08/31/2017 MILO BENNYCARLA WARRENP Ot F17.210 NICOTINE DEPENDENCE, CIGARETTES, UNCOMPL 08/31/2017 MILO BENNY J INTAKE SPECIALIST Ot I10 ESSENTIAL (PRIMARY) HYPERTENSION 08/31/2017 MILO BENNY J INTAKE SPECIALIST Ot I69.354 HEMIPLGA FOLLOWING CEREBRAL INFRC AFFECT 08/31/2017 MILO BENNY J INTAKE SPECIALIST Ot E11.9 TYPE 2 DIABETES MELLITUS WITHOUT COMPLIC 08/31/2017 MILO BENNY J INTAKE SPECIALIST Ot F17.210 NICOTINE DEPENDENCE, CIGARETTES, UNCOMPL 08/31/2017 MILO BENNY J INTAKE SPECIALIST Ot I10 ESSENTIAL (PRIMARY) HYPERTENSION 08/31/2017 MILO BENNY J INTAKE SPECIALIST Ot I69.354 HEMIPLGA FOLLOWING CEREBRAL INFRC AFFECT 09/01/2017 BENNY PEDRAZA INTAKE SPECIALIST Ot E11.9 TYPE 2 DIABETES MELLITUS WITHOUT COMPLIC 09/01/2017 PEDRAZABENNYP Ot F17.210 NICOTINE DEPENDENCE, CIGARETTES, UNCOMPL 09/01/2017 BENNY PEDRAZA Francisco Javier INTAKE SPECIALIST Ot I10 ESSENTIAL (PRIMARY) HYPERTENSION 09/01/2017 BENNY PEDRAZA Francisco Javier INTAKE SPECIALIST Ot I69.354 HEMIPLGA FOLLOWING CEREBRAL INFRC AFFECT 09/03/2017 PATT RODRIGUEZ MD Ot J11.1 FLU DUE TO UNIDENTIFIED INFLUENZA VIRUS 09/03/2017 PATT RODRIGUEZ MD Ot R05 COUGH 09/03/2017 PATT RODRIGUEZ MD Ot Z79.82 ALF (CURRENT) USE OF ASPIRIN 09/06/2017 MILO BENNY J INTAKE SPECIALIST Ot E11.9 TYPE 2 DIABETES MELLITUS WITHOUT COMPLIC 09/06/2017 MILO BENNY Francisco Javier INTAKE SPECIALIST Ot F17.210 NICOTINE DEPENDENCE, CIGARETTES, UNCOMPL 09/06/2017 BENNY PEDRAZA Francisco Javier INTAKE SPECIALIST Ot I10 ESSENTIAL (PRIMARY) HYPERTENSION 09/06/2017 MILO BENNY J INTAKE SPECIALIST Ot I69.354 HEMIPLGA FOLLOWING CEREBRAL INFRC AFFECT 09/30/2017 MILO BENNY J INTAKE SPECIALIST Ot E11.9 TYPE 2 DIABETES MELLITUS WITHOUT COMPLIC 09/30/2017 MILO BENNY J INTAKE SPECIALIST Ot F17.210 NICOTINE DEPENDENCE, CIGARETTES, UNCOMPL 09/30/2017 BENNY PEDRAZA Francisco Javier INTAKE SPECIALIST Ot I10 ESSENTIAL (PRIMARY) HYPERTENSION 09/30/2017 NANETTE PEDRAZACARLA Mcintyre INTAKE SPECIALIST Ot I69.354 HEMIPLGA FOLLOWING CEREBRAL INFRC AFFECT 11/02/2017 NESS BEYER MD Ot E11.9 TYPE 2 DIABETES MELLITUS WITHOUT COMPLIC 11/02/2017 NESS BEYER MD Ot F17.210 NICOTINE DEPENDENCE, CIGARETTES, UNCOMPL 11/02/2017 NESS BEYER MD Ot K21.9 GASTRO-ESOPHAGEAL REFLUX DISEASE WITHOUT 11/02/2017 NESS BEYER MD Ot R30.0 DYSURIA 11/02/2017 NESS BEYER MD Ot R33.9 RETENTION OF URINE, UNSPECIFIED 11/02/2017 NESS BEYER MD Ot Z79.02 TECHNICAL BUSINESS ANALYST (CURRENT) USE OF ANTITHROMBOTI 11/02/2017 NESS BEYER MD Ot Z79.82 ALF (CURRENT) USE OF ASPIRIN 11/02/2017 NESS BEYER MD, Ot Z79.84 ALF (CURRENT) USE OF ORAL HYPOGLYC 11/02/2017 NESS BEYER MD Ot Z86.73 PRSNL HX OF TIA (TIA), AND CEREB INFRC W 11/02/2017 NESS BEYER MD Ot Z87.19 PERSONAL HISTORY OF OTHER DISEASES OF TH 11/02/2017 NESS BEYER MD Ot Z88.7 ALLERGY STATUS TO SERUM AND VACCINE STAT 11/02/2017 NESS BEYER MD Ot Z98.890 OTHER SPECIFIED POSTPROCEDURAL STATES 11/03/2017 NESS BEYER MD Ot E11.9 TYPE 2 DIABETES MELLITUS WITHOUT COMPLIC 11/03/2017 NESS BEYER MD, Ot F17.210 NICOTINE DEPENDENCE, CIGARETTES, UNCOMPL 11/03/2017 NESS BEYER MD Ot K21.9 GASTRO-ESOPHAGEAL REFLUX DISEASE WITHOUT 11/03/2017 NESS BEYER MD Ot R30.0 DYSURIA 11/03/2017 NESS BEYER MD Ot R33.9 RETENTION OF URINE, UNSPECIFIED 11/03/2017 NESS BEYER MD Ot Z79.02 TECHNICAL BUSINESS ANALYST (CURRENT) USE OF ANTITHROMBOTI 11/03/2017 NESS BEYER MD Ot Z79.82 TECHNICAL BUSINESS ANALYST (CURRENT) USE OF ASPIRIN 11/03/2017 NESS BEYER MD Ot Z79.84 ALF (CURRENT) USE OF ORAL HYPOGLYC 11/03/2017 NESS BEYER MD Ot Z86.73 PRSNL HX OF TIA (TIA), AND CEREB INFRC W 11/03/2017 NESS BEYER MD Ot Z87.19 PERSONAL HISTORY OF OTHER DISEASES OF TH 11/03/2017 NESS BEYER MD Ot Z88.7 ALLERGY STATUS TO SERUM AND VACCINE STAT 11/03/2017 NESS BEYER MD Ot Z98.890 OTHER SPECIFIED POSTPROCEDURAL STATES 12/01/2017 Francisco Javier Pederson MD 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 Results Test Result Range Streptococcus pyogenes antigen detection - 02/08/17 11:12 Streptococcus pyogenes antigen detection NEGATIVE NEGATIVE Influenza virus A and B antigen detection - 02/08/17 11:12 CALL POSITIVES (F1 HELP) REGIS NR FLU RESULT POSITIVE FOR INFLUENZA B ANTIGEN, NEG FOR A ANTIGEN, BY IA NR Bacterial throat culture - 02/08/17 11:12 Bacterial throat culture NBS NR Capillary blood glucose measurement by glucometer (mass/volume) - 03/08/17 20: 17 Capillary blood glucose measurement by glucometer (mass/volume) 124 mg/dL 70-110 Capillary blood glucose measurement by glucometer (mass/volume) - 03/09/17 04: 19 Capillary blood glucose measurement by glucometer (mass/volume) 127 mg/dL 70-110 Automated blood complete blood count (hemogram) panel - 03/09/17 06:05 Blood leukocytes automated count (number/volume) 7.8 10*3/uL 4.3-11.0 Blood erythrocytes automated count (number/volume) 5.08 10*6/uL 4.35-5.85 Venous blood hemoglobin measurement (mass/volume) 15.5 g/dL 13.3-17.7 Blood hematocrit (volume fraction) 44 % 40-54 Automated erythrocyte mean corpuscular volume 87 [foz_us] 80-99 Automated erythrocyte mean corpuscular hemoglobin (mass per erythrocyte) 31 pg 25-34 Automated erythrocyte mean corpuscular hemoglobin concentration measurement ( mass/volume) 35 g/dL 32-36 Automated erythrocyte distribution width ratio 13.9 % 10.0-14.5 Automated blood platelet count (count/volume) 193 10*3/uL 130-400 Automated blood platelet mean volume measurement 10.2 [foz_us] 7.4-10.4 Comprehensive metabolic panel - 03/09/17 06:05 Serum or plasma sodium measurement (moles/volume) 137 mmol/L 135-145 Serum or plasma potassium measurement (moles/volume) 4.7 mmol/L 3.6-5.0 Serum or plasma chloride measurement (moles/volume) 105 mmol/L 98-107 Carbon dioxide 21 mmol/L 21-32 Serum or plasma anion gap determination (moles/volume) 11 mmol/L 5-14 Serum or plasma urea nitrogen measurement (mass/volume) 27 mg/dL 7-18 Serum or plasma creatinine measurement (mass/volume) 0.82 mg/dL 0.60-1.30 Serum or plasma urea nitrogen/creatinine mass ratio 33 NRG Serum or plasma creatinine measurement with calculation of estimated glomerular filtration rate > NRG Serum or plasma glucose measurement (mass/volume) 133 mg/dL 70-105 Serum or plasma calcium measurement (mass/volume) 9.1 mg/dL 8.5-10.1 Serum or plasma total bilirubin measurement (mass/volume) 0.9 mg/dL 0.1-1.0 Serum or plasma alkaline phosphatase measurement (enzymatic activity/volume) 99 U/L 40-136 Serum or plasma aspartate aminotransferase measurement (enzymatic activity/ volume) 21 U/L 5-34 Serum or plasma alanine aminotransferase measurement (enzymatic activity/volume ) 19 U/L 0-55 Serum or plasma protein measurement (mass/volume) 7.0 g/dL 6.4-8.2 Serum or plasma albumin measurement (mass/volume) 3.9 g/dL 3.2-4.5 Capillary blood glucose measurement by glucometer (mass/volume) - 03/09/17 16: 09 Capillary blood glucose measurement by glucometer (mass/volume) 143 mg/dL 70-110 Capillary blood glucose measurement by glucometer (mass/volume) - 03/10/17 05: 08 Capillary blood glucose measurement by glucometer (mass/volume) 123 mg/dL 70-110 Capillary blood glucose measurement by glucometer (mass/volume) - 03/11/17 04: 52 Capillary blood glucose measurement by glucometer (mass/volume) 121 mg/dL 70-110 Capillary blood glucose measurement by glucometer (mass/volume) - 03/12/17 05: 10 Capillary blood glucose measurement by glucometer (mass/volume) 124 mg/dL 70-110 Capillary blood glucose measurement by glucometer (mass/volume) - 03/12/17 15: 59 Capillary blood glucose measurement by glucometer (mass/volume) 106 mg/dL 70-110 Capillary blood glucose measurement by glucometer (mass/volume) - 03/13/17 06: 12 Capillary blood glucose measurement by glucometer (mass/volume) 143 mg/dL 70-110 Capillary blood glucose measurement by glucometer (mass/volume) - 03/13/17 16: 10 Capillary blood glucose measurement by glucometer (mass/volume) 132 mg/dL 70-110 Capillary blood glucose measurement by glucometer (mass/volume) - 03/14/17 06: 47 Capillary blood glucose measurement by glucometer (mass/volume) 130 mg/dL 70-110 Capillary blood glucose measurement by glucometer (mass/volume) - 03/14/17 16: 21 Capillary blood glucose measurement by glucometer (mass/volume) 102 mg/dL 70-110 Capillary blood glucose measurement by glucometer (mass/volume) - 03/15/17 05: 46 Capillary blood glucose measurement by glucometer (mass/volume) 133 mg/dL 70-110 Capillary blood glucose measurement by glucometer (mass/volume) - 03/15/17 16: 13 Capillary blood glucose measurement by glucometer (mass/volume) 105 mg/dL 70-110 Capillary blood glucose measurement by glucometer (mass/volume) - 03/16/17 06: 06 Capillary blood glucose measurement by glucometer (mass/volume) 115 mg/dL 70-110 Capillary blood glucose measurement by glucometer (mass/volume) - 03/16/17 15: 54 Capillary blood glucose measurement by glucometer (mass/volume) 94 mg/dL 70-110 Capillary blood glucose measurement by glucometer (mass/volume) - 03/17/17 05: 08 Capillary blood glucose measurement by glucometer (mass/volume) 106 mg/dL 70-110 Capillary blood glucose measurement by glucometer (mass/volume) - 03/17/17 16: 26 Capillary blood glucose measurement by glucometer (mass/volume) 114 mg/dL 70-110 Capillary blood glucose measurement by glucometer (mass/volume) - 03/18/17 05: 11 Capillary blood glucose measurement by glucometer (mass/volume) 112 mg/dL 70-110 Capillary blood glucose measurement by glucometer (mass/volume) - 03/18/17 17: 05 Capillary blood glucose measurement by glucometer (mass/volume) 119 mg/dL 70-110 Capillary blood glucose measurement by glucometer (mass/volume) - 03/19/17 05: 10 Capillary blood glucose measurement by glucometer (mass/volume) 107 mg/dL 70-110 Capillary blood glucose measurement by glucometer (mass/volume) - 03/19/17 20: 04 Capillary blood glucose measurement by glucometer (mass/volume) 167 mg/dL 70-110 Capillary blood glucose measurement by glucometer (mass/volume) - 03/20/17 05: 59 Capillary blood glucose measurement by glucometer (mass/volume) 154 mg/dL 70-110 Capillary blood glucose measurement by glucometer (mass/volume) - 03/20/17 16: 15 Capillary blood glucose measurement by glucometer (mass/volume) 108 mg/dL 70-110 Capillary blood glucose measurement by glucometer (mass/volume) - 03/21/17 05: 47 Capillary blood glucose measurement by glucometer (mass/volume) 118 mg/dL 70-110 Capillary blood glucose measurement by glucometer (mass/volume) - 03/21/17 16: 36 Capillary blood glucose measurement by glucometer (mass/volume) 103 mg/dL 70-110 Capillary blood glucose measurement by glucometer (mass/volume) - 03/22/17 05: 02 Capillary blood glucose measurement by glucometer (mass/volume) 121 mg/dL 70-110 Capillary blood glucose measurement by glucometer (mass/volume) - 03/22/17 16: 01 Capillary blood glucose measurement by glucometer (mass/volume) 98 mg/dL 70-110 Capillary blood glucose measurement by glucometer (mass/volume) - 03/23/17 05: 30 Capillary blood glucose measurement by glucometer (mass/volume) 128 mg/dL 70-110 Capillary blood glucose measurement by glucometer (mass/volume) - 03/23/17 16: 25 Capillary blood glucose measurement by glucometer (mass/volume) 119 mg/dL 70-110 Capillary blood glucose measurement by glucometer (mass/volume) - 03/24/17 04: 50 Capillary blood glucose measurement by glucometer (mass/volume) 128 mg/dL 70-110 Capillary blood glucose measurement by glucometer (mass/volume) - 03/24/17 16: 28 Capillary blood glucose measurement by glucometer (mass/volume) 134 mg/dL 70-110 Capillary blood glucose measurement by glucometer (mass/volume) - 03/25/17 05: 07 Capillary blood glucose measurement by glucometer (mass/volume) 110 mg/dL 70-110 Capillary blood glucose measurement by glucometer (mass/volume) - 03/25/17 15: 58 Capillary blood glucose measurement by glucometer (mass/volume) 99 mg/dL 70-110 Capillary blood glucose measurement by glucometer (mass/volume) - 03/26/17 05: 30 Capillary blood glucose measurement by glucometer (mass/volume) 105 mg/dL 70-110 Capillary blood glucose measurement by glucometer (mass/volume) - 03/26/17 16: 43 Capillary blood glucose measurement by glucometer (mass/volume) 179 mg/dL 70-110 Capillary blood glucose measurement by glucometer (mass/volume) - 03/27/17 04: 43 Capillary blood glucose measurement by glucometer (mass/volume) 126 mg/dL 70-110 Capillary blood glucose measurement by glucometer (mass/volume) - 03/27/17 16: 51 Capillary blood glucose measurement by glucometer (mass/volume) 133 mg/dL 70-110 Capillary blood glucose measurement by glucometer (mass/volume) - 03/28/17 06: 05 Capillary blood glucose measurement by glucometer (mass/volume) 126 mg/dL 70-110 Capillary blood glucose measurement by glucometer (mass/volume) - 03/28/17 16: 41 Capillary blood glucose measurement by glucometer (mass/volume) 115 mg/dL 70-110 Capillary blood glucose measurement by glucometer (mass/volume) - 03/29/17 06: 06 Capillary blood glucose measurement by glucometer (mass/volume) 141 mg/dL 70-110 Capillary blood glucose measurement by glucometer (mass/volume) - 03/29/17 17: 31 Capillary blood glucose measurement by glucometer (mass/volume) 94 mg/dL 70-110 Capillary blood glucose measurement by glucometer (mass/volume) - 03/30/17 05: 02 Capillary blood glucose measurement by glucometer (mass/volume) 114 mg/dL 70-110 Capillary blood glucose measurement by glucometer (mass/volume) - 03/30/17 16: 06 Capillary blood glucose measurement by glucometer (mass/volume) 114 mg/dL 70-110 Capillary blood glucose measurement by glucometer (mass/volume) - 03/31/17 05: 01 Capillary blood glucose measurement by glucometer (mass/volume) 129 mg/dL 70-110 Capillary blood glucose measurement by glucometer (mass/volume) - 03/31/17 16: 05 Capillary blood glucose measurement by glucometer (mass/volume) 104 mg/dL 70-110 Capillary blood glucose measurement by glucometer (mass/volume) - 04/01/17 04: 39 Capillary blood glucose measurement by glucometer (mass/volume) 120 mg/dL 70-110 Capillary blood glucose measurement by glucometer (mass/volume) - 04/01/17 16: 15 Capillary blood glucose measurement by glucometer (mass/volume) 86 mg/dL 70-110 Capillary blood glucose measurement by glucometer (mass/volume) - 04/02/17 04: 30 Capillary blood glucose measurement by glucometer (mass/volume) 112 mg/dL 70-110 Capillary blood glucose measurement by glucometer (mass/volume) - 04/02/17 15: 59 Capillary blood glucose measurement by glucometer (mass/volume) 116 mg/dL 70-110 Capillary blood glucose measurement by glucometer (mass/volume) - 04/03/17 05: 33 Capillary blood glucose measurement by glucometer (mass/volume) 116 mg/dL 70-110 Capillary blood glucose measurement by glucometer (mass/volume) - 04/03/17 19: 53 Capillary blood glucose measurement by glucometer (mass/volume) 211 mg/dL 70-110 Capillary blood glucose measurement by glucometer (mass/volume) - 04/04/17 05: 31 Capillary blood glucose measurement by glucometer (mass/volume) 107 mg/dL 70-110 Capillary blood glucose measurement by glucometer (mass/volume) - 04/04/17 16: 18 Capillary blood glucose measurement by glucometer (mass/volume) 116 mg/dL 70-110 Capillary blood glucose measurement by glucometer (mass/volume) - 04/05/17 05: 14 Capillary blood glucose measurement by glucometer (mass/volume) 115 mg/dL 70-110 Capillary blood glucose measurement by glucometer (mass/volume) - 04/05/17 17: 02 Capillary blood glucose measurement by glucometer (mass/volume) 91 mg/dL 70-110 Capillary blood glucose measurement by glucometer (mass/volume) - 04/06/17 05: 43 Capillary blood glucose measurement by glucometer (mass/volume) 129 mg/dL 70-110 Capillary blood glucose measurement by glucometer (mass/volume) - 04/06/17 15: 30 Capillary blood glucose measurement by glucometer (mass/volume) 86 mg/dL 70-110 Capillary blood glucose measurement by glucometer (mass/volume) - 04/07/17 05: 25 Capillary blood glucose measurement by glucometer (mass/volume) 108 mg/dL 70-110 Capillary blood glucose measurement by glucometer (mass/volume) - 04/07/17 16: 22 Capillary blood glucose measurement by glucometer (mass/volume) 141 mg/dL 70-110 Capillary blood glucose measurement by glucometer (mass/volume) - 04/08/17 04: 48 Capillary blood glucose measurement by glucometer (mass/volume) 99 mg/dL 70-110 Capillary blood glucose measurement by glucometer (mass/volume) - 04/08/17 16: 14 Capillary blood glucose measurement by glucometer (mass/volume) 67 mg/dL 70-110 Capillary blood glucose measurement by glucometer (mass/volume) - 04/09/17 05: 13 Capillary blood glucose measurement by glucometer (mass/volume) 108 mg/dL 70-110 Complete blood count (CBC) with automated white blood cell (WBC) differential - 07/03/17 09:20 Blood leukocytes automated count (number/volume) 6.4 10*3/uL 4.3-11.0 Blood erythrocytes automated count (number/volume) 5.11 10*6/uL 4.35-5.85 Venous blood hemoglobin measurement (mass/volume) 15.4 g/dL 13.3-17.7 Blood hematocrit (volume fraction) 45 % 40-54 Automated erythrocyte mean corpuscular volume 89 [foz_us] 80-99 Automated erythrocyte mean corpuscular hemoglobin (mass per erythrocyte) 30 pg 25-34 Automated erythrocyte mean corpuscular hemoglobin concentration measurement ( mass/volume) 34 g/dL 32-36 Automated erythrocyte distribution width ratio 14.3 % 10.0-14.5 Automated blood platelet count (count/volume) 192 10*3/uL 130-400 Automated blood platelet mean volume measurement 10.4 [foz_us] 7.4-10.4 Automated blood neutrophils/100 leukocytes 64 % 42-75 Automated blood lymphocytes/100 leukocytes 27 % 12-44 Blood monocytes/100 leukocytes 7 % 0-12 Automated blood eosinophils/100 leukocytes 1 % 0-10 Automated blood basophils/100 leukocytes 1 % 0-10 Blood neutrophils automated count (number/volume) 4.1 10*3 1.8-7.8 Blood lymphocytes automated count (number/volume) 1.7 10*3 1.0-4.0 Blood monocytes automated count (number/volume) 0.5 10*3 0.0-1.0 Automated eosinophil count 0.1 10*3/uL 0.0-0.3 Automated blood basophil count (count/volume) 0.0 10*3/uL 0.0-0.1 Comprehensive metabolic panel - 07/03/17 09:20 Serum or plasma sodium measurement (moles/volume) 140 mmol/L 135-145 Serum or plasma potassium measurement (moles/volume) 3.8 mmol/L 3.6-5.0 Serum or plasma chloride measurement (moles/volume) 103 mmol/L 98-107 Carbon dioxide 22 mmol/L 21-32 Serum or plasma anion gap determination (moles/volume) 15 mmol/L 5-14 Serum or plasma urea nitrogen measurement (mass/volume) 13 mg/dL 7-18 Serum or plasma creatinine measurement (mass/volume) 0.75 mg/dL 0.60-1.30 Serum or plasma urea nitrogen/creatinine mass ratio 17 NRG Serum or plasma creatinine measurement with calculation of estimated glomerular filtration rate > NRG Serum or plasma glucose measurement (mass/volume) 152 mg/dL 70-105 Serum or plasma calcium measurement (mass/volume) 9.2 mg/dL 8.5-10.1 Serum or plasma total bilirubin measurement (mass/volume) 1.0 mg/dL 0.1-1.0 Serum or plasma alkaline phosphatase measurement (enzymatic activity/volume) 160 U/L 40-136 Serum or plasma aspartate aminotransferase measurement (enzymatic activity/ volume) 20 U/L 5-34 Serum or plasma alanine aminotransferase measurement (enzymatic activity/volume ) 15 U/L 0-55 Serum or plasma protein measurement (mass/volume) 7.1 g/dL 6.4-8.2 Serum or plasma albumin measurement (mass/volume) 4.1 g/dL 3.2-4.5 Magnesium - 07/03/17 09:20 Magnesium 1.3 mg/dL 1.8-2.4 Serum or plasma troponin i.cardiac measurement (mass/volume) - 07/03/17 09:20 Serum or plasma troponin i.cardiac measurement (mass/volume) < ng/ mL <0.30 Myoglobin, serum - 07/03/17 09:20 Myoglobin, serum 40.7 ng/mL 10.0-92.0 Serum or plasma lithium measurement (moles/volume) - 07/03/17 09:20 BNP level 32.8 pg/mL <100.0 PT panel in platelet poor plasma by coagulation assay - 07/03/17 09:20 Prothrombin time (PT) in platelet poor plasma by coagulation assay 13.7 s 12.2-14.7 INR in platelet poor plasma or blood by coagulation assay 1.0 0.8-1.4 Activated partial thromboplastin time (aPTT) in platelet poor plasma bycoagulation assay - 07/03/17 09:20 Activated partial thromboplastin time (aPTT) in platelet poor plasma bycoagulation assay 29 s 24-35 Fibrin D-dimer FEU measurement in platelet poor plasma (mass/volume) - 09:20 Fibrin D-dimer FEU measurement in platelet poor plasma (mass/volume) 8.41 ug/mL 0.00-0.49 Complete blood count (CBC) with automated white blood cell (WBC) differential - 11/01/17 23:20 Blood leukocytes automated count (number/volume) 7.7 10*3/uL 4.3-11.0 Blood erythrocytes automated count (number/volume) 5.02 10*6/uL 4.35-5.85 Venous blood hemoglobin measurement (mass/volume) 15.5 g/dL 13.3-17.7 Blood hematocrit (volume fraction) 43 % 40-54 Automated erythrocyte mean corpuscular volume 87 [foz_us] 80-99 Automated erythrocyte mean corpuscular hemoglobin (mass per erythrocyte) 31 pg 25-34 Automated erythrocyte mean corpuscular hemoglobin concentration measurement ( mass/volume) 36 g/dL 32-36 Automated erythrocyte distribution width ratio 14.1 % 10.0-14.5 Automated blood platelet count (count/volume) 245 10*3/uL 130-400 Automated blood platelet mean volume measurement 9.8 [foz_us] 7.4-10.4 Automated blood neutrophils/100 leukocytes 71 % 42-75 Automated blood lymphocytes/100 leukocytes 19 % 12-44 Blood monocytes/100 leukocytes 7 % 0-12 Automated blood eosinophils/100 leukocytes 2 % 0-10 Automated blood basophils/100 leukocytes 1 % 0-10 Blood neutrophils automated count (number/volume) 5.5 10*3 1.8-7.8 Blood lymphocytes automated count (number/volume) 1.4 10*3 1.0-4.0 Blood monocytes automated count (number/volume) 0.6 10*3 0.0-1.0 Automated eosinophil count 0.2 10*3/uL 0.0-0.3 Automated blood basophil count (count/volume) 0.1 10*3/uL 0.0-0.1 PT panel in platelet poor plasma by coagulation assay - 11/01/17 23:20 Prothrombin time (PT) in platelet poor plasma by coagulation assay 13.6 s 12.2-14.7 INR in platelet poor plasma or blood by coagulation assay 1.0 0.8-1.4 Activated partial thromboplastin time (aPTT) in platelet poor plasma bycoagulation assay - 11/01/17 23:20 Activated partial thromboplastin time (aPTT) in platelet poor plasma bycoagulation assay 29 s 24-35 Comprehensive metabolic panel - 11/01/17 23:20 Serum or plasma sodium measurement (moles/volume) 137 mmol/L 135-145 Serum or plasma potassium measurement (moles/volume) 4.3 mmol/L 3.6-5.0 Serum or plasma chloride measurement (moles/volume) 102 mmol/L 98-107 Carbon dioxide 21 mmol/L 21-32 Serum or plasma anion gap determination (moles/volume) 14 mmol/L 5-14 Serum or plasma urea nitrogen measurement (mass/volume) 15 mg/dL 7-18 Serum or plasma creatinine measurement (mass/volume) 0.70 mg/dL 0.60-1.30 Serum or plasma urea nitrogen/creatinine mass ratio 21 NRG Serum or plasma creatinine measurement with calculation of estimated glomerular filtration rate > NRG Serum or plasma glucose measurement (mass/volume) 132 mg/dL 70-105 Serum or plasma calcium measurement (mass/volume) 9.6 mg/dL 8.5-10.1 Serum or plasma total bilirubin measurement (mass/volume) 0.8 mg/dL 0.1-1.0 Serum or plasma alkaline phosphatase measurement (enzymatic activity/volume) 154 U/L 40-136 Serum or plasma aspartate aminotransferase measurement (enzymatic activity/ volume) 26 U/L 5-34 Serum or plasma alanine aminotransferase measurement (enzymatic activity/volume ) 26 U/L 0-55 Serum or plasma protein measurement (mass/volume) 7.3 g/dL 6.4-8.2 Serum or plasma albumin measurement (mass/volume) 4.4 g/dL 3.2-4.5 CALCIUM CORRECTED 9.3 mg/dL 8.5-10.1 Blood lactic acid measurement (moles/volume) - 11/01/17 23:50 Blood lactic acid measurement (moles/volume) 1.85 mmol/L 0.50-2.00 Bacterial blood culture - 11/01/17 23:50 QUANTITY OF GROWTH . NRG Bacterial blood culture SEE REPORT NRG Complete urinalysis with reflex to culture - 11/02/17 00:03 Urine color determination YELLOW NRG Urine clarity determination CLEAR NRG Urine pH measurement by test strip 7 5-9 Specific gravity of urine by test strip 1.010 1.016- 1.022 Urine protein assay by test strip, semi-quantitative NEGATIVE NEGATIVE Urine glucose detection by automated test strip NEGATIVE NEGATIVE Erythrocytes detection in urine sediment by light microscopy NEGATIVE NEGATIVE Urine ketones detection by automated test strip NEGATIVE NEGATIVE Urine nitrite detection by test strip NEGATIVE NEGATIVE Urine total bilirubin detection by test strip NEGATIVE NEGATIVE Urine urobilinogen measurement by automated test strip (mass/volume) NORMAL NORMAL Urine leukocyte esterase detection by dipstick NEGATIVE NEGATIVE Automated urine sediment erythrocyte count by microscopy (number/high power field) RARE NRG Automated urine sediment leukocyte count by microscopy (number/high power field ) NONE NRG Bacteria detection in urine sediment by light microscopy TRACE NRG Squamous epithelial cells detection in urine sediment by light microscopy NONE NRG Crystals detection in urine sediment by light microscopy NONE NRG Casts detection in urine sediment by light microscopy NONE NRG Mucus detection in urine sediment by light microscopy SMALL NRG Complete urinalysis with reflex to culture NO NRG Bacterial urine culture - 11/02/17 00:03 Bacterial urine culture RML NRG COLONY COUNT . NRG Bacterial blood culture - 11/02/17 00:40 Bacterial blood culture NG NRG Encounters ACCT No. Visit Date/Time Discharge Status Pt. Type Provider Facility Loc./Unit Complaint [id number] 03/25/2018 20:06:20 ACT Unknown Francisco Javier Pederson MD [id number] 12/21/2017 09:22:22 12/16/2017 23:59:59 CLS V [facility] [place] MS ops [id number] 04/19/2018 09:04:00 04/19/2018 23:59:59 CLS Outpatient LIANNE FRANCISCO, BONNY Silva [facility] REHAB UNSTEADY GAIT [id number] 11/01/2017 21:52:00 11/02/2017 02:20:00 DIS Emergency PEPITO FRANCISCO, NESS Kc [facility] ER UNABLE TO URINATE/ BACK PAIN [id number] 09/30/2017 12:51:00 09/30/2017 13:59:00 DIS Outpatient PEDRAZABENNY [facility] RE[facility] CVA; L LEG WEAKNESS [id number] 08/26/2017 09:36:00 08/26/2017 00:01:00 DIS Outpatient PEDRAZABENNY [facility] CVA; L LEG WEAKNESS [id number] 07/03/2017 09:04:00 07/03/2017 12:30:00 DIS Emergency PAZ FRANCISCO, VAZQUEZ Browning [facility] ER CHEST PAIN [id number] 03/08/2017 14:26:00 04/09/2017 16:12:00 DIS Inpatient VERONICA FRANCISCO, NNEKA Irwin [facility] IRF IRF [id number] 02/08/2017 10:52:00 02/08/2017 12:02:00 DIS Emergency MICHAEL FRANCISCO, PATT Mcintyre [facility] ER CONGESTION,COUGH [id number] 04/23/2018 07:46:00 ACT Emergency KINGS FRANCISCO, JAMEY Armendariz [facility] ER FALL, LT SHOULDER PAIN
[2018-04-23] MEDS ORDERED: DULO30CA48 (07:58)
[2018-04-23] MEDS ORDERED: TETANUS,DIPTH,PERTUSS P/F (BOOSTRIX) 0.5 ML VIAL IM ONE (08:15)
--- NOTE | 2018-04-23 08:42 | Diagnostic Imaging Report ---
PROCEDURE: CT head without contrast. TECHNIQUE: Multiple contiguous axial images were obtained through the brain without the use of intravenous contrast. DATE: April 23, 2018. COMPARISON: None. INDICATION: 73-year-old male, fall. Headache. FINDINGS: There are areas of low attenuation in the periventricular and subcortical white matter which are nonspecific but may relate to changes of chronic small vessel ischemic disease. There is likely a thin tract of encephalomalacia in the right sided white matter. The ventricles and cerebral spinal fluid spaces are of normal size and configuration for the patient's age. There is no mass effect or midline shift. There is no acute intracranial hemorrhage. There is no abnormal extra-axial fluid collection. The visualized portions of the paranasal sinuses, mastoid air cells and middle ears are well aerated. IMPRESSION: 1. No identified acute intracranial abnormality. 2. Probable tract of encephalomalacia in the right-sided white matter with probable changes of chronic small vessel ischemic disease. Dictated by: Dictated on workstation # [id number]
--- NOTE | 2018-04-23 09:01 | Diagnostic Imaging Report ---
INDICATION: Left elbow pain. Time of exam: 8:38 AM 3 views of the left elbow show normal alignment. There appears to be some questionable slight cortical interruption involving the radial neck on the oblique imaging. No displacement is seen. No other fractures are identified. IMPRESSION: Findings suspect for radial neck fracture. The lateral view is limited and could be repeated. Dictated by: Dictated on workstation # [id number]
--- NOTE | 2018-04-23 09:13 | ED Fall/Injury ---
General Chief Complaint: Trauma-Non Activation Stated Complaint: FALL, LT SHOULDER PAIN Nursing Triage Note: TO ED PER W/C PATIENT IS A OLD STROKE WAS TRYING TO TRANSFER FROM W/C TO BATHROOM STOOL LOST BALANCE AND HIT HEAD AND L SHOULDR C/O PAIN NO LOC Source: patient Exam Limitations: no limitations History of Present Illness Date Seen by Provider: Apr 23, 2018 Time Seen by Provider: 07:54 Initial Comments This 73-year-old gentleman presents to the emergency room with complaints of left shoulder pain and skin tears on his right hand and left arm after falling while transferring himself out of his wheelchair. He has history of CVA with left-sided weakness. He does take Plavix. Incident happened earlier this morning. He was going to the restroom and had his pants half-way down which contributed to the fall. He is here with his daughter. Daughter states he told her that he did hit his head and he tells me he does not know if he hit his head. He denies any pain in the head or neck at this time. He is alert and oriented. He has some abrasions and skin tears on the left forearm, left elbow, and right hand. Range of motion in the left arm is limited and painful at the shoulder. Patient states his fall was purely mechanical in he denies any prodrome of lightheadedness, shortness of breath, acute weakness, etc. Occurred: this morning Allergies and Home Medications Allergies Coded Allergies: Influenza Virus Vaccines (Verified Allergy, Unknown, 05/23/09) Uncoded Allergies: FLU SHOT (Allergy, Mild, 05/22/09) Home Medications Aspirin 325 Mg Tablet.dr, 325 MG PO DAILY, (Reported) Clopidogrel Bisulfate 75 Mg Tablet, 75 MG PO DAILY Prescribed by: NNEKA MARTIN on 04/08/17 0902 Glimepiride 2 Mg Tablet, 2 MG PO DAILY, (Reported) Hydrocodone/Acetaminophen 1 Each Tablet, 1 TAB PO Q4-6HR Prescribed by: JAMEY HOU on 04/23/18 1128 Lisinopril 10 Mg Tablet, 10 MG PO DAILY, (Reported) Metformin HCl 1,000 Mg Tablet, 1,000 MG PO BID WITH MEALS, (Reported) Simvastatin 5 Mg Tablet, 5 MG PO HS, (Reported) Patient Home Medication List Home Medication List Reviewed: Yes Review of Systems Review of Systems Constitutional: no symptoms reported Eyes: No Symptoms Reported Ears, Nose, Mouth, Throat: no symptoms reported Respiratory: no symptoms reported Cardiovascular: no symptoms reported Gastrointestinal: no symptoms reported Genitourinary: no symptoms reported Musculoskeletal: see HPI Skin: see HPI Psychiatric/Neurological: See HPI Past Kecnngq-Swsvcu-Mvxgmh Hx Past Med/Social Hx: Reviewed and Corrections made Patient Social History Alcohol Use: Denies Use Recreational Drug Use: No Smoking Status: Current Everyday Smoker Type Used: Cigarettes Former Smoker, Quit: Mar 04, 2017 Recent Foreign Travel: No Contact w/Someone Who Travel: No Recent Infectious Disease Expo: No Recent Hopitalizations: Yes (VEIN STRIPPING HEMORRHOIDS) Immunizations Up To Date Tetanus Booster (TDap): Unknown PED Vaccines UTD: Yes Date of Pneumonia Vaccine: Apr 05, 2016 Seasonal Allergies Seasonal Allergies: No Past Medical History Surgeries: Yes ( HEMORRHOIDS, Prostate biopsy related to BPH) Respiratory: No Cardiac: Yes (-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) Neurological: Yes (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) Stroke Reproductive Disorders: No Genitourinary: No Gastrointestinal: Yes Gastroesophageal Reflux, Hemorrhoids Musculoskeletal: Yes (indicates cervical narrowing) Endocrine: Yes Diabetes, Non-Insulin dep HEENT: Yes (blurred vision-has hearingaides-does not wear) Loss of Vision: Bilateral Hearing Impairment: Hard of Hearing Cancer: No Psychosocial: No Integumentary: No Blood Disorders: No Physical Exam Vital Signs Vital Signs - First Documented 04/23/18 04/23/18 07:50 11:36 Temp 97.7 Pulse 93 Resp 18 B/P (MAP) 118/89 (99) Pulse Ox 96 O2 Delivery Room Air Capillary Refill : Less Than 3 Seconds Height, Weight, BMI Height: 6'2.00" Weight: 160lbs. 4.8oz. 72.746343wa; 25.0 BMI Method:Stated General Appearance: WD/WN, no apparent distress HEENT: PERRL/EOMI, normal ENT inspection, pharynx normal Neck: non-tender, normal inspection Cardiovascular: regular rate, rhythm, no edema, no murmur Respiratory: lungs clear, normal breath sounds, no respiratory distress, no accessory muscle use Gastrointestinal: non tender, soft Extremities: other (there is tenderness in the left shoulder over the head of the humerus and pain with range of motion. There is also pain in the left elbow with range of motion. There is an abrasion over the lateral left elbow and a small skin tear over the dorsum of the left wrist. There is also a skin tear on the palmar aspect of the right hand. 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, alert, normal mood/affect, oriented x 3, motor weakness (weakness of the left extremities from prior stroke ) Rickie Coma Score Best Eye Response: (4) Open Spontaneously Best Verbal Response: (5) Oriented Best Motor Response: (6) Obeys Commands Rickie Total: 15 Progress/Results/Core Measures Results/Orders My Orders Orders - JAMEY KU MD Dipht,Pertuss(Acell),Tet Adult (Boostrix (04/23/18 08:15) Ct Head Wo (04/23/18 08:04) Shoulder, Left, 3 Views (04/23/18 08:04) Elbow, Left, 3 Views (04/23/18 08:04) Hydrocodone/Apap 5/325 Tablet (Lortab 5 (04/23/18 10:30) Medications Given in ED Vital Signs/I&O 04/23/18 04/23/18 07:50 11:36 Temp 97.7 Pulse 93 78 Resp 18 18 B/P (MAP) 118/89 (99) 112/71 (85) Pulse Ox 96 O2 Delivery Room Air Room Air Blood Pressure Mean: 99 Progress Progress Note : Progress Note CT head was unremarkable. However, fracture was found at the humeral neck and at the radial head. A posterior splint was applied and the arm was placed in a sling. Wounds on the left arm were cleaned with Hibiclens and saline and dressed with large Band-Aids and antibiotic ointment. The skin flap on the right hand was washed with saline and chlorhexidine. It was irrigated with saline and then tacked down with Steri-Strips. Patient received a tetanus booster. Hydrocodone was given for pain. Patient has seen Dr. Tabares in the past for shoulder problems. He is being referred back to Dr. Tabares for fracture care. Incidental lytic lesions were noted on the shoulder x-ray. Patient and family were advised that these should be followed closely and further workup for possible neoplastic disease is necessary under the direction of his primary care provider and orthopedist. Diagnostic Imaging Diagonstic Imaging: CT Plain Films/CT/US/NM/MRI: head Comments CT scans viewed by me and report reviewed. See report below: NAME: PORFIRIO BROOKS MED REC#: [id number] PT STATUS: REG ER : 1945 PHYSICIAN: JAMEY KU MD ADMIT DATE: 04/23/18/ER Signed Date of Exam:04/23/18 CT HEAD WO PROCEDURE: CT head without contrast. TECHNIQUE: Multiple contiguous axial images were obtained through the brain without the use of intravenous contrast. DATE: April 23, 2018. COMPARISON: None. INDICATION: 73-year-old male, fall. Headache. FINDINGS: There are areas of low attenuation in the periventricular and subcortical white matter which are nonspecific but may relate to changes of chronic small vessel ischemic disease. There is likely a thin tract of encephalomalacia in the right sided white matter. The ventricles and cerebral spinal fluid spaces are of normal size and configuration for the patient's age. There is no mass effect or midline shift. There is no acute intracranial hemorrhage. There is no abnormal extra-axial fluid collection. The visualized portions of the paranasal sinuses, mastoid air cells and middle ears are well aerated. IMPRESSION: 1. No identified acute intracranial abnormality. 2. Probable tract of encephalomalacia in the right-sided white matter with probable changes of chronic small vessel ischemic disease. Dictated by: Dictated on workstation # [id number] Dict: 04/23/18 0837 Trans: 04/23/18 0857 [facility] [id number] Interpreted by: LILY CASANOVA MD Electronically signed by: LILY CASANOVA MD 04/23/18 0857 Diagonstic Imaging: Xray Plain Films/CT/US/NM/MRI: elbow Comments Elbow x-ray viewed by me and report reviewed. See report below: NAME: PORFIRIO BROOKS MED REC#: [id number] PT STATUS: REG ER : 1945 PHYSICIAN: JAMEY KU MD ADMIT DATE: 04/23/18/ER Draft Date of Exam:04/23/18 ELBOW, LEFT, 3 VIEWS INDICATION: Left elbow pain. Time of exam: 8:38 AM 3 views of the left elbow show normal alignment. There appears to be some questionable slight cortical interruption involving the radial neck on the oblique imaging. No displacement is seen. No other fractures are identified. IMPRESSION: Findings suspect for radial neck fracture. The lateral view is limited and could be repeated. Dictated on workstation # [id number] Dict: 04/23/18 0852 Trans: 04/23/18 0900 [facility] [id number] Interpreted by: VINICIUS JENSEN MD Diagonstic Imaging: Xray Plain Films/CT/US/NM/MRI: other (left shoulder) Comments Shoulder x-ray viewed by me and report reviewed. See report below: NAME: PORFIRIO BROOKS [facility] REC#: [id number] PT STATUS: DEP ER : 1945 PHYSICIAN: JAMEY KU MD ADMIT DATE: 04/23/18/ER Signed Date of Exam: 04/23/18 SHOULDER, LEFT, 3 VIEWS INDICATION: Left shoulder pain. TIME OF EXAM: 8:29 AM FINDINGS: Three views of the left shoulder demonstrate normal glenohumeral and acromioclavicular alignment. There appears to be a fracture of the humeral neck, best seen on the AP view. There appears to be a lipohemarthrosis in the acromiohumeral space. AC alignment is normal. There are numerous lucencies identified through the proximal humerus suspicious for myeloma or metastatic disease. IMPRESSION: 1. Nondisplaced fracture of the humeral neck. 2. Numerous lucencies throughout the proximal humerus suggestive of multiple myeloma or metastatic disease. Dictated by: Dictated on workstation # [id number] Dict: 04/23/18 0853 Trans: 04/23/18 1531 Interpreted by: VINICIUS JENSEN MD Electronically signed by: VINICIUS JENSEN MD 04/23/18 1531 Departure Impression Primary Impression: Fracture of neck of left humerus Qualified Codes: S42.212A - Unspecified displaced fracture of surgical neck of left humerus, initial encounter for closed fracture Additional Impressions: Left radial head fracture Qualified Codes: S52.125A - Nondisplaced fracture of head of left radius, initial encounter for closed fracture Fall on same level Qualified Codes: W18.30XA - Fall on same level, unspecified, initial encounter Laceration of right hand Qualified Codes: S61.411A - Laceration without foreign body of right hand, initial encounter Lytic bone lesions on xray Disposition: HOME, SELF-CARE Condition: Stable Departure-Patient Inst. Decision time for Depature: 11:23 Referrals: BONNY ABDALLA MD (PCP/Family) Primary Care Physician ALBERTO TABARES MD Patient Instructions: Elbow Fracture (DC), SPLINT CARE, Shoulder Fracture Add. Discharge Instructions: Monitor your wounds for signs of infection including increasing redness, increasing swelling, increasing pain, puslike drainage, or fever. Return to care promptly few notice these symptoms. Allow the Steri-Strips to slough off naturally. You may trim off loose ends if needed. Follow-up with Dr. Tabares or the orthopedic surgeon of your choice as soon as possible for follow-up care on your fractures. Until then keep the splint in place and clean and dry. Keep the left arm in the sling for support and comfort. The sling may be removed for dressing and comfort on the neck as long as the arm is supported. Use your hydrocodone as prescribed for pain. You may wish to use a stool softener such as Colace once or twice daily to prevent constipation while you are taking hydrocodone. You may apply ice to the affected areas in 20 minute intervals to help with pain and swelling as well. Follow-up with your primary care provider as soon as possible. Please call Dr. Tabares and Dr. Abdalla on Wednesday to arrange follow-up. You have lytic lesions in your left humerus that need to be worked up further. Please discuss this with both Dr. Tabares and Dr. Abdalla. Return to care if you have any further problems or concerns or worsening of condition. All discharge instructions reviewed with patient and/or family. Voiced understanding. Scripts Hydrocodone/Acetaminophen (Hydrocodone-Acetamin 5-325 mg) 1 Each Tablet 1 TAB PO Q4-6HR for PAIN-MODERATE MDD 10, #20 TAB Prov: JAMEY KU MD 04/23/18 Copy Copies To 1: BONNY ABDALLA MD Copies To 2: ALBERTO TABARES MD, JOSHUA T MD Apr 23, 2018 09:13
--- NOTE | 2018-04-23 09:42 | Diagnostic Imaging Report ---
INDICATION: Left shoulder pain. TIME OF EXAM: 8:29 AM FINDINGS: Three views of the left shoulder demonstrate normal glenohumeral and acromioclavicular alignment. There appears to be a fracture of the humeral neck, best seen on the AP view. There appears to be a lipohemarthrosis in the acromiohumeral space. AC alignment is normal. There are numerous lucencies identified through the proximal humerus suspicious for myeloma or metastatic disease. IMPRESSION: 1. Nondisplaced fracture of the humeral neck. 2. Numerous lucencies throughout the proximal humerus suggestive of multiple myeloma or metastatic disease. Dictated by: Dictated on workstation # [id number]
--- NOTE | 2018-04-23 10:13 | NUR ---
IN ROOM DISCUSSING X RAY RESULTS.
[2018-04-23] MEDS ORDERED: HYDROcodone/APAP 5 MG/325 MG (LORTAB) TAB PO ONE (10:30)
--- NOTE | 2018-04-23 10:43 | NUR ---
DR DING TO ROOM TO PLACE SPLINT ON L ARM.
[2018-04-23] MEDS ORDERED: HYDR-3812 PO (11:28)
[2018-04-23 11:36] VITALS: BP 112/71
== END 2018-04-23 11:36 | disposition home or self-care (01) ==
LOC: EDUNIT# 07:44 → ER 07:46
DX: S42.215A Unspecified nondisplaced fracture of surgical neck of left humerus, initial encounter for closed fracture (principal); S52.122A Displaced fracture of head of left radius, initial encounter for closed fracture; S61.411A Laceration without foreign body of right hand, initial encounter; K21.9 Gastro-esophageal reflux disease without esophagitis; E11.9 Type 2 diabetes mellitus without complications; Z23 Encounter for immunization; Z88.7 Allergy status to serum and vaccine; Z79.82 Long term (current) use of aspirin; Z79.02 Long term (current) use of antithrombotics/antiplatelets; Z79.4 Long term (current) use of insulin; Z86.73 Personal history of transient ischemic attack (TIA), and cerebral infarction without residual deficits; Z87.891 Personal history of nicotine dependence; Z98.890 Other specified postprocedural states; Z87.19 Personal history of other diseases of the digestive system; V00.811A Fall from moving wheelchair (powered), initial encounter
CPT/HCPCS: 29105; 70450; 73030; 73080; 90715

== ENCOUNTER → 2018-05-11 | Outpatient (CLI) | payer MEDICARE, OTHER ==
[~2018-05-11] MED LIST changes: +DULO30CA48; +HYDR-3812 PO
--- NOTE | 2018-05-11 18:54 | Diagnostic Imaging Report ---
INDICATION: Report of lucencies within the left humerus on previous shoulder x-ray of 04/23/2018. FINDINGS: Calvarium shows no lytic lesion. The spine shows moderate degenerative change in the mid cervical region as well as diffusely throughout the mid and lower thoracic spine and lumbar spine without evidence of compression fractures or lytic lesion. There is pars defect at L5 with grade 1 anterolisthesis of L5 on S1. No evidence of lytic expansile rib lesions. Clavicles appear normal. There is a diffuse mottled appearance throughout the left humeral head and shaft. No cortical fractures are seen. Articulating surfaces are smooth. Left radius and ulna are normal. The right humerus shows benign-appearing sclerotic change in the metaphyseal region. There are no lytic lesions. Radius and ulna are normal. Pelvis shows no lytic lesion. The femurs bilaterally show moderate degenerative change with no lytic bony changes. The tibia and fibula appear normal. IMPRESSION: 1. Diffuse mottled lytic appearance to the left humerus. Left radial neck fracture is reported on the left elbow film from 04/23/2018. This is not well demonstrated on today's projected views. 2. Diffuse degenerative changes throughout the cervical, thoracic and lumbar spine with bilateral spondylolysis and grade 1 spondylolisthesis of L5 on S1. Dictated by: Dictated on workstation # [id number]
== END ==
LOC: RAD 16:30
PROVIDERS: ATTEND Internal Medicine Hematology & Oncology
DX: S42.309A Unspecified fracture of shaft of humerus, unspecified arm, initial encounter for closed fracture (principal); M47.812 Spondylosis without myelopathy or radiculopathy, cervical region; M47.814 Spondylosis without myelopathy or radiculopathy, thoracic region; M47.816 Spondylosis without myelopathy or radiculopathy, lumbar region; M43.17 Spondylolisthesis, lumbosacral region; Z87.81 Personal history of (healed) traumatic fracture
CPT/HCPCS: 77075

== ENCOUNTER → 2018-06-21 | Outpatient (CLI) | payer MEDICARE, OTHER ==
--- NOTE | 2018-06-21 13:44 | Diagnostic Imaging Report ---
INDICATION: Screening for osteoporosis. COMPARISON: None. FINDINGS: The bone mineral density of the hips and spine was measured. There are no prior studies available for comparison The T-score for the spine is 3.1. This does indicate osteoporosis. The total T-score for the left hip is -1.5 and the left femoral neck has a T-score of -2.1. These values do indicate osteopenia. The total T-score for the right hip is -0.5. The T-score for the right femoral neck is -0.6. Both of these values are within normal limits. AP Spine L1-L4: [BMD (g/cm2): 0.863] [T-Score: -3.1] [Z-Score: -2.1] [BMD Previous: na] [BMD % Change: na] LT Hip Neck: [BMD (g/cm2): 0.801] [T-Score: -2.1] [Z-Score: -0.4] LT Hip Total: [BMD (g/cm2):0.892] [T-Score:-1.5] [Z-Score: -0.3] [BMD Previous: na] [BMD % Change: na] RT Hip Neck: [BMD (g/cm2):0.986] [T-Score:-0.6] [Z-Score:1.0] RT Hip Total: [BMD (g/cm2):1.030] [T-score:-0.5] [Z-Score:0.6] [BMD Previous:na] [BMD % Change:na] *Indicates significant change from prior examination based on 95% confidence level. World Health Organization criteria for BMD interpretation classify patients as Normal (T-score at or above -1.0), Osteopenic (T-score between -1.0 and -2.5) or Osteoporotic (T-score at or below -2.5). LIMITATIONS AND MODIFICATION: None. FRACTURE RISK (FRAX SCORE): The ten year probability of (%): Major Osteoporotic Fracture: [9.5] Hip Fracture: [4.3] IMPRESSION: 1. 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 2. The bone mineral density of the right hip is within normal limits. 3. See below National Osteoporosis Foundation guidelines on when to potentially initiate pharmacologic therapy. Based on the National Osteoporosis Foundation Guidelines, pharmacologic treatment should be initiated in any of the following, unless clinical conditions suggest otherwise: * Any patient with prior fragility fracture of the hip or vertebrae. A spine fracture indicates 5X risk for subsequent spine fracture and 2X risk for subsequent hip fracture. * Osteoporosis (T-score <-2.5). * Postmenopausal women and men age 50 and older with low bone mass/osteopenia (T-score between -1.0 and -2.5) by DXA and 10-year major osteoporotic fracture greater than 20% or a 10-year probability of hip fracture greater than 3%. These fracture risks are supplied above in the FRAX score, if applicable. * Clinician judgement and/or patient preferences may indicate treatment for people with 10-year fracture probabilities above or below these levels. Dictated by: Dictated on workstation # [id number]
== END ==
LOC: RAD 11:23
PROVIDERS: ATTEND Internal Medicine Hematology & Oncology
DX: M81.8 Other osteoporosis without current pathological fracture (principal); M85.88 Other specified disorders of bone density and structure, other site; Z13.820 Encounter for screening for osteoporosis
CPT/HCPCS: 77080

== ENCOUNTER 2018-07-12 13:41 | Outpatient (RCR) | payer MEDICARE, OTHER ==
[2018-05-04 15:21] LABS: BASOPHILS % (AUTO) 0 % (0-10); EOSINOPHILS # (AUTO) 0.2 10^3/uL (0.0-0.3); EOSINOPHILS % (AUTO) 3 % (0-10); HEMATOCRIT 45 % (40-54); HEMOGLOBIN 15.6 G/DL (13.3-17.7); LYMPHOCYTES % (AUTO) 23 % (12-44); MEAN CORPUSCULAR HEMOGLOBIN 31 PG (25-34); MEAN CORPUSCULAR HGB CONC 34 G/DL (32-36); MEAN CORPUSCULAR VOLUME 89 FL (80-99); MONOCYTES # (AUTO) 0.6 X 10^3 (0.0-1.0); MONOCYTES % (AUTO) 7 % (0-12); NEUTROPHILS # (AUTO) 5.9 X 10^3 (1.8-7.8); NEUTROPHILS % (AUTO) 67 % (42-75); PLATELET COUNT 191 10^3/uL (130-400); RED CELL DISTRIBUTION WIDTH 13.6 % (10.0-14.5); WHITE BLOOD COUNT 8.7 10^3/uL (4.3-11.0)
[2018-05-04 15:41] LABS: ALANINE AMINOTRANSFERASE 23 U/L (0-55); ALBUMIN 4.2 GM/DL (3.2-4.5); ALKALINE PHOSPHATASE 181 U/L (40-136); BILIRUBIN,TOTAL 0.5 MG/DL (0.1-1.0); BUN/CREATININE RATIO 23; CALCIUM 9.1 MG/DL (8.5-10.1); CARBON DIOXIDE 25 MMOL/L (21-32); CHLORIDE 102 MMOL/L (98-107); CREATININE SERUM 0.74 MG/DL (0.60-1.30); GFR ESTIMATED > 60; GLUCOSE 154 MG/DL (70-105); POTASSIUM 4.2 MMOL/L (3.6-5.0); SODIUM 139 MMOL/L (135-145); TOTAL PROTEIN 7.1 GM/DL (6.4-8.2)
[2018-05-04 15:51] LABS: INR 1.1 (0.8-1.4); PROTHROMBIN TIME PATIENT 13.7 SEC (12.2-14.7)
[2018-05-20 11:09] LABS: ABSOLUTE RETIC # 28 10e9/L (24-90); BASOPHILS % (AUTO) 0 % (0-10); EOSINOPHILS # (AUTO) 0.2 10^3/uL (0.0-0.3); EOSINOPHILS % (AUTO) 3 % (0-10); HEMATOCRIT 44 % (40-54); LYMPHOCYTES # (AUTO) 1.7 X 10^3 (1.0-4.0); LYMPHOCYTES % (AUTO) 22 % (12-44); MEAN CORPUSCULAR HEMOGLOBIN 30 PG (25-34); MEAN CORPUSCULAR HGB CONC 34 G/DL (32-36); MEAN CORPUSCULAR VOLUME 89 FL (80-99); MEAN PLATELET VOLUME 9.7 FL (7.4-10.4); MONOCYTES # (AUTO) 0.6 X 10^3 (0.0-1.0); MONOCYTES % (AUTO) 8 % (0-12); NEUTROPHILS # (AUTO) 5.3 X 10^3 (1.8-7.8); NEUTROPHILS % (AUTO) 68 % (42-75); PLATELET COUNT 233 10^3/uL (130-400); RED CELL DISTRIBUTION WIDTH 13.8 % (10.0-14.5); RETICULOCYTE % 0.57 % (0.50-2.40); WHITE BLOOD COUNT 7.8 10^3/uL (4.3-11.0)
[2018-05-20 11:41] LABS: BAND NEUTROPHILS 0 %; EOSINOPHILS % (MANUAL) 5 %; LYMPHOCYTES % (MANUAL) 19 %; MONOCYTES % (MANUAL) 7 %; NEUTROPHILS % (MANUAL) 69 %; RBC MORPH NORMAL
[~2018-07-12 13:41] MED LIST changes: -BARIUM SUSPENSION 2.1% (VANILLA SILQ) 450 ML PO ONE; -HOLD METFORMIN - RECEIVED CONTRAST 20 ML VIAL IV SCH; -IOHEXOL 350 MG/ML 100 ML (OMNIPAQUE 350) VIAL IV ONE; +LIDOCAINE 1% 20 ML (XYLOCAINE) VIAL CANCER CTR ONE; -NS 100 ML (IVPB) BAG IV ONE
[2018-07-12 13:55] LABS: BASOPHILS % (AUTO) 0 % (0-10); EOSINOPHILS # (AUTO) 0.2 10^3/uL (0.0-0.3); EOSINOPHILS % (AUTO) 3 % (0-10); HEMATOCRIT 41 % (40-54); HEMOGLOBIN 14.2 G/DL (13.3-17.7); LYMPHOCYTES # (AUTO) 2.6 X 10^3 (1.0-4.0); LYMPHOCYTES % (AUTO) 31 % (12-44); MEAN CORPUSCULAR HEMOGLOBIN 31 PG (25-34); MEAN CORPUSCULAR HGB CONC 34 G/DL (32-36); MEAN CORPUSCULAR VOLUME 89 FL (80-99); MEAN PLATELET VOLUME 10.1 FL (7.4-10.4); MONOCYTES # (AUTO) 0.6 X 10^3 (0.0-1.0); MONOCYTES % (AUTO) 7 % (0-12); NEUTROPHILS # (AUTO) 4.9 X 10^3 (1.8-7.8); NEUTROPHILS % (AUTO) 59 % (42-75); PLATELET COUNT 212 10^3/uL (130-400); RED CELL DISTRIBUTION WIDTH 14.1 % (10.0-14.5); WHITE BLOOD COUNT 8.4 10^3/uL (4.3-11.0)
[2018-07-12 14:19] LABS: ALANINE AMINOTRANSFERASE 45 U/L (0-55); ALBUMIN 3.9 GM/DL (3.2-4.5); ALKALINE PHOSPHATASE 148 U/L (40-136); BILIRUBIN,TOTAL 0.5 MG/DL (0.1-1.0); BUN/CREATININE RATIO 15; CALCIUM 9.2 MG/DL (8.5-10.1); CARBON DIOXIDE 27 MMOL/L (21-32); CHLORIDE 102 MMOL/L (98-107); CREATININE SERUM 0.66 MG/DL (0.60-1.30); GFR ESTIMATED > 60; GLUCOSE 83 MG/DL (70-105); POTASSIUM 4.1 MMOL/L (3.6-5.0); SODIUM 140 MMOL/L (135-145); TOTAL PROTEIN 6.6 GM/DL (6.4-8.2)
== END 2018-08-02 | disposition home or self-care (01) ==
LOC: ONC 13:41
PROVIDERS: ATTEND Internal Medicine Hematology & Oncology
DX: M89.9 Disorder of bone, unspecified (principal); Z86.73 Personal history of transient ischemic attack (TIA), and cerebral infarction without residual deficits; E11.9 Type 2 diabetes mellitus without complications; Z79.84 Long term (current) use of oral hypoglycemic drugs; Z79.82 Long term (current) use of aspirin; Z79.899 Other long term (current) drug therapy; F17.210 Nicotine dependence, cigarettes, uncomplicated
CPT/HCPCS: 36415; 38221; 80053; 82232; 82306; 82570; 83615; 83883; 84100; 84153; 84155; 84156; 84165; 84166; 85007; 85025; 85027; 85045; 85610; 85730; 88184; 88185; 88305; 88311; 88313; 99213; 99214

== ENCOUNTER → 2018-07-12 | Outpatient (CLI) | payer MEDICARE, OTHER ==
[~2018-07-12] MED LIST changes: +BARIUM SUSPENSION 2.1% (VANILLA SILQ) 450 ML PO ONE; +HOLD METFORMIN - RECEIVED CONTRAST 20 ML VIAL IV SCH; +IOHEXOL 350 MG/ML 100 ML (OMNIPAQUE 350) VIAL IV ONE; +NS 100 ML (IVPB) BAG IV ONE
--- NOTE | 2018-07-12 15:14 | Diagnostic Imaging Report ---
PROCEDURE: CT chest with contrast, CT abdomen and pelvis with and without contrast. TECHNIQUE: Pre and post intravenous contrast axial imaging of the abdomen and pelvis and post contrast axial imaging of the chest were performed. Auto Exposure Controls were utilized during the CT exam to meet ALARA standards for radiation dose reduction. INDICATION: Left sided weakness. COMPARISON: Correlation is made with prior CT chest from 06/03/[address] abdomen and pelvis from 07/30/2011. CT CHEST: No axillary lymphadenopathy is detected. No hilar or mediastinal lymphadenopathy is identified. There are coronary arterial calcifications. The ascending thoracic aorta is tortuous but nonaneurysmal. No pericardial or pleural fluid is identified. Parenchymal evaluation demonstrates calcified granuloma in the left upper lobe. There is some dependent atelectasis of both lower lobes. No noncalcified mass or infiltrate is detected. No osteolytic or blastic lesions are seen. IMPRESSION: Essentially unremarkable CT of the chest. There is no evidence of thoracic lymphadenopathy or pulmonary metastatic disease. CT ABDOMEN AND PELVIS: No discrete liver mass is identified. The gallbladder is unremarkable. No biliary duct dilatation is seen. The pancreas and spleen are unremarkable. No adrenal mass is detected. Kidneys contain low-density masses suggestive of cysts. The largest is on the right measuring 6.2 cm compared with 5.[address] from 2012. No hydronephrosis is identified. Aorta is calcified. There is mild aneurysmal dilatation of the distal abdominal aorta measuring 3.5 cm in AP diameter. This is new since CT from 2011. Small and large bowel loops are normal in caliber. There is no ascites. Partially filled urinary bladder is unremarkable. The prostate is enlarged. No definite abdominal or pelvic lymphadenopathy is detected. Bony structures are nonacute. No osteolytic or blastic lesions are seen. IMPRESSION: 1. Bilateral renal cysts, slightly increased in size since study from 2011. 2. Prostatomegaly. 3. Infrarenal abdominal aortic aneurysm. 4. No acute feature in the abdomen or pelvis is identified. Dictated by: Dictated on workstation # [id number]
--- NOTE | 2018-07-13 09:55 | NUR ---
This produce team member has established rapport with the pt and his daughter, Day over the past 6 years through [facility] and [facility]. Pt is Sikhism and was a few years ago. His daughter Day Alejandro is the primary support and cares for him at home. Offered comforting presence and engaged in uplifting conversation.
== END ==
LOC: RAD 13:57
PROVIDERS: ATTEND Internal Medicine Hematology & Oncology
DX: N28.1 Cyst of kidney, acquired (principal); N40.0 Benign prostatic hyperplasia without lower urinary tract symptoms; I71.4 Abdominal aortic aneurysm, without rupture; M81.0 Age-related osteoporosis without current pathological fracture
CPT/HCPCS: 71260; 74178

== ENCOUNTER → 2020-04-12 | Outpatient (CLI) | payer MEDICARE, OTHER ==
[~2020-04-12] MED LIST changes: +ACHD5005 PO; -DULO30CA48; +DULO30CA49; -GLIM2TAB PO; +GLIM2TAB4 PO; -HYDR-3812 PO; -LIDOCAINE 1% 20 ML (XYLOCAINE) VIAL CANCER CTR ONE; -LISI10TA2 PO; +LISI10TA25 PO; -TRAM50TA2; +TRM50T
--- NOTE | 2020-04-12 08:11 | Diagnostic Imaging Report ---
INDICATION: Infrarenal abdominal aortic aneurysm. Proximal aorta measures 1.7 cm AP x 2.1 cm transverse. Midabdominal aorta measures 1.9 cm AP x 1.9 cm transverse. Distal abdominal aorta measures 3.2 cm AP x 3.6 cm transverse. Right iliac measures 0.9 x 0.9 cm. Left iliac measures 0.9 x 0.9 cm. IMPRESSION: Infrarenal abdominal aortic aneurysm, similar in size when compared with the CT study from 07/12/2018. Dictated by: Dictated on workstation # [id number]
== END ==
LOC: RAD 07:00
PROVIDERS: ATTEND Physician Assistant Medical
DX: I71.4 Abdominal aortic aneurysm, without rupture (principal)
CPT/HCPCS: 76775

== ENCOUNTER 2021-10-31 16:58 | Inpatient (IN) | payer MEDICARE, OTHER ==
[~2021-10-31] VITALS: Ht 187.9 cm; Wt 86.5 kg
[2021-10-31 17:29] LABS: BASOPHILS % (AUTO) 0 % (0-10); EOSINOPHILS # (AUTO) 0.1 10^3/uL (0.0-0.3); EOSINOPHILS % (AUTO) 1 % (0-10); HEMATOCRIT 39 % (40-54); HEMOGLOBIN 13.3 g/dL (13.3-17.7); LYMPHOCYTES # (AUTO) 0.5 10^3/uL (1.0-4.0); LYMPHOCYTES % (AUTO) 5 % (12-44); MEAN CORPUSCULAR HEMOGLOBIN 29 pg (25-34); MEAN CORPUSCULAR HGB CONC 34 g/dL (32-36); MEAN CORPUSCULAR VOLUME 87 fL (80-99); MEAN PLATELET VOLUME 10.1 fL (9.0-12.2); MONOCYTES # (AUTO) 1.1 10^3/uL (0.0-1.0); MONOCYTES % (AUTO) 13 % (0-12); NEUTROPHILS # (AUTO) 7.1 10^3/uL (1.8-7.8); NEUTROPHILS % (AUTO) 80 % (42-75); PLATELET COUNT 213 10^3/uL (130-400); WHITE BLOOD COUNT 8.9 10^3/uL (4.3-11.0)
--- NOTE | 2021-10-31 17:41 | Diagnostic Imaging Report ---
INDICATION: Fever. EXAMINATION: Chest, 10/31/2021. COMPARISON: 11/02/2017. FINDINGS: Heart and pulmonary vasculature are normal. There is mild atelectasis versus infiltrate in the left midlung. Remaining lungs clear. No effusion or pneumothorax. IMPRESSION: Atelectasis versus infiltrate left midlung. Follow-up recommended. Dictated by: Dictated on workstation # [id number]
[2021-10-31 17:42] LABS: ALBUMIN 3.7 GM/DL (3.2-4.5); POTASSIUM 4.6 MMOL/L (3.6-5.0)
[2021-10-31 17:43] LABS: CALCIUM 8.7 MG/DL (8.5-10.1)
[2021-10-31 17:44] LABS: TOTAL PROTEIN 7.2 GM/DL (6.4-8.2)
--- NOTE | 2021-10-31 17:44 | ED General ---
General Chief Complaint: COVID19 Suspect/Confirmed Stated Complaint: FEVER,AMS Source of Information: Patient Exam Limitations: No Limitations History of Present Illness Date Seen by Provider: Oct 31, 2021 Time Seen by Provider: 17:09 Initial Comments Here with report of fever and altered mental status from [facility]. Apparently he was seen there today and found to have COVID. Patient does report fever and chills as well as mild cough and runny nose. 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 He has been vaccinated from COVID. Does have chronic urinary incontinence. Patient has relatively few complaints Timing/Duration: 1-2 Days Severity: Moderate Associated Systoms: No Chest Pain; Cough; No Diaphoresis; Fever/Chills; No Nausea/Vomiting, No Shortness of Air; Weakness Allergies and Home Medications Allergies Coded Allergies: Influenza Virus Vaccines (Verified Allergy, Unknown, 05/23/09) Uncoded Allergies: FLU SHOT (Allergy, Mild, 05/22/09) Patient Home Medication List Home Medication List Reviewed: Yes Aspirin (Aspirin EC) 325 Mg Tablet., 325 MG PO DAILY, (Reported) Entered as Reported by: LUIS EDUARDO ZHANG on 03/09/17 1125 Clopidogrel Bisulfate (Clopidogrel) 75 Mg Tablet, 75 MG PO DAILY Prescribed by: NNEKA MARTIN on 04/08/17 0902 Duloxetine HCl (Duloxetine HCl) 30 Mg Capsule., (Reported) Entered as Reported by: MIAH HOANG on 04/23/18 0758 Gabapentin (Gabapentin) 300 Mg Capsule, (Reported) Entered as Reported by: MIAH HOANG on 07/03/17 0931 Glimepiride (Glimepiride) 2 Mg Tablet, 2 MG PO DAILY, (Reported) Entered as Reported by: LUIS EDUARDO ZHANG on 03/09/17 1125 Hydrocodone Bit/Acetaminophen (Lortab 5 Mg Tablet) 1 Each Tablet, 1 TAB PO Q4- 6HR Prescribed by: JAMEY HOU on 04/23/18 1128 Lisinopril (Lisinopril) 10 Mg Tablet, 10 MG PO DAILY, (Reported) Entered as Reported by: LUIS EDUARDO ZHANG on 03/09/17 1125 Metformin HCl (Metformin HCl) 1,000 Mg Tablet, 1,000 MG PO BID WITH MEALS, (Reported) Entered as Reported by: LUIS EDUARDO ZHANG on 03/09/17 1125 Simvastatin (Simvastatin) 5 Mg Tablet, 5 MG PO HS, (Reported) Entered as Reported by: LUIS EDUARDO ZHANG on 03/09/17 1125 Tramadol HCl (Tramadol HCl) 50 Mg Tablet, (Reported) Entered as Reported by: MIAH HOANG on 07/03/17 0931 Review of Systems Review of Systems Constitutional: see HPI; No chills; fever, weakness EENTM: nose congestion; No throat pain Respiratory: cough; No short of breath Cardiovascular: No chest pain, No edema Gastrointestinal: No nausea, No vomiting Genitourinary: no symptoms reported Musculoskeletal: No back pain, No muscle pain Skin: No change in color, No dryness Psychiatric/Neurological: Denies Headache; Weakness All Other Systems Reviewed Negative Unless Noted: Yes Past Svkpjmj-Xpytil-Wvldza Hx Patient Social History Tobacco Use?: No Use of E-Cig and/or Vaping dev: No Substance use?: No Alcohol Use?: No Pt feels they are or have been: No Immunizations Up To Date Tetanus Booster (TDap): Unknown PED Vaccines UTD: Yes First/Initial COVID19 Vaccinat: 2020 Second COVID19 Vaccination Ji: 2020 Seasonal Allergies Seasonal Allergies: No Past Medical History Surgeries: Yes ( HEMORRHOIDS, Prostate biopsy related to BPH) Respiratory: No Cardiac: Yes (-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) Neurological: Yes (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) Stroke Reproductive Disorders: No Genitourinary: No Gastrointestinal: Yes Gastroesophageal Reflux, Hemorrhoids Musculoskeletal: Yes (indicates cervical narrowing) Endocrine: Yes Diabetes, Non-Insulin dep HEENT: Yes (blurred vision-has hearingaides-does not wear) Loss of Vision: Bilateral Hearing Impairment: Hard of Hearing Cancer: No Psychosocial: No Integumentary: No Blood Disorders: No Family Medical History Reviewed Nursing Family Hx Physical Exam-Suspected Sepsis Physical Exam Vital Signs Vital Signs - First Documented 10/31/21 16:58 Temp 38.2 Pulse 97 Resp 18 B/P (MAP) 113/71 (85) Pulse Ox 94 O2 Delivery Room Air Capillary Refill : Less Than 3 Seconds Blood Pressure Mean: 85 Height, Weight, BMI Height: 6'2.00" Weight: 160lbs. 4.8oz. 72.095297fr; 25.0 BMI Method:Stated General Appearance: No Apparent Distress, WD/WN HEENT: PERRL/EOMI, Pharynx Normal Neck: Non Tender, Supple Respiratory: Lungs Clear, Normal Breath Sounds Cardiovascular: Regular Rate, Rhythm, No Murmur Gastrointestinal: Non Tender, Soft Back: Normal Inspection, No CVA Tenderness, No Vertebral Tenderness Extremity: Non Tender, No Calf Tenderness, Other (Left-sided residual weakness from stroke is not changed for the patient.) Neurologic/Psychiatric: Alert, Oriented x3 Skin: normal color, warm/dry Focused Exam Lactate Level 10/31/21 17:16: Lactic Acid Level 2.05*H Lactic Acid Level Laboratory Tests Test 10/31/21 17:16 Lactic Acid Level 2.05 MMOL/L (0.50-2.00) *H Progress/Results/Core Measures Suspected Sepsis Recent Fever Within 48 Hours: Yes Infection Criteria Present: Suspected New Infection New/Unexplained Altered Menta: No SIRS Temperature: Pulse: 97 Respiratory Rate: 18 Laboratory Tests 10/31/21 17:16: White Blood Count 8.9 Blood Pressure 113 /71 Mean: 85 10/31/21 17:16: Lactic Acid Level 2.05*H Laboratory Tests 10/31/21 17:16: Creatinine 1.13, INR Comment 1.0, Platelet Count 213, Total Bilirubin 0.7 Results/Orders Lab Results Laboratory Tests Test 10/31/21 17:16 10/31/21 17:45 Range/Units White Blood Count 8.9 4.3-11.0 10^3/uL Red Blood Count 4.53 4.30-5.52 10^6/uL Hemoglobin 13.3 13.3-17.7 g/dL Hematocrit 39 L 40-54 % Mean Corpuscular Volume 87 80-99 fL Mean Corpuscular Hemoglobin 29 25-34 pg Mean Corpuscular Hemoglobin Concent 34 32-36 g/dL Red Cell Distribution Width 13.3 10.0-14.5 % Platelet Count 213 130-400 10^3/uL Mean Platelet Volume 10.1 9.0-12.2 fL Immature Granulocyte % (Auto) 1 % Neutrophils (%) (Auto) 80 H 42-75 % Lymphocytes (%) (Auto) 5 L 12-44 % Monocytes (%) (Auto) 13 H 0-12 % Eosinophils (%) (Auto) 1 0-10 % Basophils (%) (Auto) 0 0-10 % Neutrophils # (Auto) 7.1 1.8-7.8 10^3/uL Lymphocytes # (Auto) 0.5 L 1.0-4.0 10^3/uL Monocytes # (Auto) 1.1 H 0.0-1.0 10^3/uL Eosinophils # (Auto) 0.1 0.0-0.3 10^3/uL Basophils # (Auto) 0.0 0.0-0.1 10^3/uL Immature Granulocyte # (Auto) 0.1 0.0-0.1 10^3/uL Neutrophils % (Manual) 83 % Lymphocytes % (Manual) 7 % Monocytes % (Manual) 8 % Eosinophils % (Manual) 2 % Microcytosis SLIGHT Prothrombin Time 14.0 12.2-14.7 SEC INR Comment 1.0 0.8-1.4 Activated Partial Thromboplast Time 28 24-35 SEC Sodium Level 136 135-145 MMOL/L Potassium Level 4.6 3.6-5.0 MMOL/L Chloride Level 102 98-107 MMOL/L Carbon Dioxide Level 18 L 21-32 MMOL/L Anion Gap 16 H 5-14 MMOL/L Blood Urea Nitrogen 19 H 7-18 MG/DL Creatinine 1.13 0.60-1.30 MG/DL Estimat Glomerular Filtration Rate 67 BUN/Creatinine Ratio 17 Glucose Level 206 H 70-105 MG/DL Lactic Acid Level 2.05 *H 0.50-2.00 MMOL/L Calcium Level 8.7 8.5-10.1 MG/DL Corrected Calcium 8.9 8.5-10.1 MG/DL Total Bilirubin 0.7 0.1-1.0 MG/DL Aspartate Amino Transf (AST/SGOT) 34 5-34 U/L Alanine Aminotransferase (ALT/SGPT) 31 0-55 U/L Alkaline Phosphatase 141 H 40-136 U/L C-Reactive Protein High Sensitivity 2.07 H 0.00-0.50 MG/DL Total Protein 7.2 6.4-8.2 GM/DL Albumin 3.7 3.2-4.5 GM/DL Procalcitonin 0.06 <0.10 NG/ML Urine Color YELLOW Urine Clarity CLEAR Urine pH 5.0 5-9 Urine Specific [place] >=1.030 1.016-1.022 Urine Protein 1+ H NEGATIVE Urine Glucose (UA) NEGATIVE NEGATIVE Urine Ketones NEGATIVE NEGATIVE Urine Nitrite NEGATIVE NEGATIVE Urine Bilirubin NEGATIVE NEGATIVE Urine Urobilinogen 0.2 < = 1.0 MG/DL Urine Leukocyte Esterase 1+ H NEGATIVE Urine RBC (Auto) TRACE-I H NEGATIVE Urine RBC 0-2 /HPF Urine WBC 5-10 H /HPF Urine Squamous Epithelial Cells 0-2 /HPF Urine Crystals NONE /LPF Urine Bacteria FEW H /HPF Urine Casts PRESENT /LPF Urine Hyaline Casts 5-10 H /LPF Urine Mucus SMALL H /LPF Urine Culture Indicated CULTURE PENDING My Orders Orders - NESS BEYER MD Cbc With Automated Diff (10/31/21 17:09) Comprehensive Metabolic Panel (10/31/21 17:09) Blood Culture (10/31/21 17:09) Sputum Culture (10/31/21 17:09) Urinalysis (10/31/21 17:09) Urine Culture (10/31/21 17:09) Protime With Inr (10/31/21 17:09) Partial Thromboplastin Time (10/31/21 17:09) Chest 1 View, Ap/Pa Only (10/31/21 17:09) Ed Iv/Invasive Line Start (10/31/21 17:09) Vital Signs Adult Sepsis Patie Q15M (10/31/21 17:09) O2 (10/31/21 17:09) Remove Rings In Anticipation O (10/31/21 17:09) Lactic Acid Analyzer (10/31/21 17:09) Manual Differential (10/31/21 17:16) Straight Cath For Spec.-Adult (10/31/21 17:46) Acetaminophen Tablet (Tylenol Tablet) (10/31/21 18:19) Hs C Reactive Protein (10/31/21 18:21) Procalcitonin (Pct) (10/31/21 18:21) Rx-Nirmatrelvir/Ritonavir(Eua) (Rx-Paxlo (10/31/21 18:45) Vital Signs/I&O 10/31/21 10/31/21 10/31/21 16:58 16:58 18:23 Temp 38.2 38.1 38.2 Pulse 97 97 Resp 18 18 B/P (MAP) 113/71 (85) 113/71 Pulse Ox 94 94 O2 Delivery Room Air Capillary Refill : Less Than 3 Seconds Blood Pressure Mean: 85 Progress Note : Progress Note Seen and evaluated. Reviewed sepsis protocol initiated. Normal saline 1 L bolu s initiated by EMS is running and we will complete that. We will need to get urine via cath UA. Monitor patient. 184: I did discuss the case with Dr. Hannah, on-call for [facility] team. Patient is fairly peaked appearing and does have COVID. There is questionable left midlung infiltrate without elevated white count. Procalcitonin is pending. We will go ahead and start Paxlovid and hold his statins as well as his oral glucose control agents. We will initiate sliding scale insulin. He is dehydrated with urine concentration. There is a urine culture pending as well as blood cultures pending. No indication for antibiotics at this time unless procalcitonin is positive. All of this was discussed with the patient and family. They agree with admission. He is DNR. 1909: Procalcitonin is negative. No indication for antibiotics at this time. We will continue hydration overnight. Admission continues. Diagnostic Imaging Diagonstic Imaging: Xray Plain Films/CT/US/NM/MRI: chest Comments FINDINGS: Heart and pulmonary vasculature are normal. There is mild atelectasis versus infiltrate in the left midlung. Remaining lungs clear. No effusion or pneumothorax. Departure Impression Primary Impression: COVID-19 virus infection Additional Impression: Dehydration Disposition: ADMITTED INPATIENT Condition: Stable Admissions Decision to Admit Reason: Admit from ER (General) Decision to Admit/Date: Oct 31, 2021 Time/Decision to Admit Time: 18:41 Departure-Patient Inst. Referrals: BONNY ABDALLA MD (PCP/Family) Primary Care Physician NESS BEYER MD Oct 31, 2021 17:44
[2021-10-31 17:46] LABS: BILIRUBIN,TOTAL 0.7 MG/DL (0.1-1.0)
[2021-10-31 17:48] LABS: CREATININE SERUM 1.13 MG/DL (0.60-1.30)
[2021-10-31 17:56] LABS: BILIRUBIN,URINE NEGATIVE (NEGATIVE); CLARITY,URINE CLEAR; COLOR,URINE YELLOW; GLUCOSE, URINE (UA) NEGATIVE (NEGATIVE); KETONES,URINE NEGATIVE (NEGATIVE); LEUKOCYTE ESTERASE ,URINE 1+ (NEGATIVE); NITRITE,URINE NEGATIVE (NEGATIVE); PROTEIN,URINE 1+ (NEGATIVE)
[2021-10-31] MEDS ORDERED: ACETAMINOPHEN 500 MG TAB (TYLENOL) PO STA (18:19)
[2021-10-31 18:20] LABS: BACTERIA,URINE FEW /HPF; RBC,URINE 0-2 /HPF; SQUAMOUS EPITHELIAL CELL,UR 0-2 /HPF
[2021-10-31 18:25] LABS: EOSINOPHILS % (MANUAL) 2 %; LYMPHOCYTES % (MANUAL) 7 %; MICROCYTOSIS SLIGHT; MONOCYTES % (MANUAL) 8 %; NEUTROPHILS % (MANUAL) 83 %
[2021-10-31] MEDS: RX-NIRMATRELVIR/RITONAVIR (PAXLOVID) #30 TABS PO SCH (18:56)
[2021-10-31] MEDS ORDERED: NS IV 1000 ML 1,000 ML ONE (19:56)
[2021-10-31] MEDS ORDERED: LACTATED RINGERS 1,000 ML IV ONE (20:54)
--- NOTE | 2021-10-31 21:20 | Tele-ICU Consult ---
Progress Note 76 y/opresented to ED with fever Found to be Covid Positive No SOB or hypoxemia Developed hypotension in ED and given 2 liters NS Given paxlovid in ED CXR:no infiltrates PMH CVA with left sided residual weakness PLAN: Monitor in ICU Focused Exam Lactate Level 10/31/21 17:16: Lactic Acid Level 2.05*H 10/31/21 21:00: Height, Weight, BMI Height: 6'2.00" Weight: 160lbs. 4.8oz. 72.901888xd; 20.00 BMI Method:Stated Lactic Acid Level Laboratory Tests Test 10/31/21 21:00 Labs Laboratory Tests 10/31/21 17:16 Results Results/Procedures Labs Laboratory Tests 10/31/21 17:16 Patient resulted labs reviewed. Results Labs Labs Laboratory Tests 10/31/21 17:16: White Blood Count 8.9, Red Blood Count 4.53, Hemoglobin 13.3, Hematocrit 39L, Mean Corpuscular Volume 87, Mean Corpuscular Hemoglobin 29, Mean Corpuscular Hemoglobin Concent 34, Red Cell Distribution Width 13.3, Platelet Count 213, Mean Platelet Volume 10.1, Immature Granulocyte % (Auto) 1, Neutrophils (%) (Auto) 80H, Lymphocytes (%) (Auto) 5L, Monocytes (%) (Auto) 13H, Eosinophils (%) (Auto) 1, Basophils (%) (Auto) 0, Neutrophils # (Auto) 7.1, Lymphocytes # (Auto) 0.5L, Monocytes # (Auto) 1.1H, Eosinophils # (Auto) 0.1, Basophils # (Auto) 0.0, Immature Granulocyte # (Auto) 0.1, Neutrophils % (Manual) 83, Lymphocytes % (Manual) 7, Monocytes % (Manual) 8, Eosinophils % (Manual) 2, Microcytosis SLIGHT, Prothrombin Time 14.0, INR Comment 1.0, Activated Partial Thromboplast Time 28, Sodium Level 136, Potassium Level 4.6, Chloride Level 102, Carbon Dioxide Level 18L, Anion Gap 16H, Blood Urea Nitrogen 19H, Creatinine 1.13, Estimat Glomerular Filtration Rate 67, BUN/Creatinine Ratio 17, Glucose Level 206H, Lactic Acid Level 2.05*H, Calcium Level 8.7, Corrected Calcium 8.9, Total Bilirubin 0.7, Aspartate Amino Transf (AST/SGOT) 34, Alanine Aminotransferase (ALT/SGPT) 31, Alkaline Phosphatase 141H, C-Reactive Protein High Sensitivity 2.07H, Total Protein 7.2, Albumin 3.7, Procalcitonin 0.06 10/31/21 17:45: Urine Color YELLOW, Urine Clarity CLEAR, Urine pH 5.0, Urine Specific [place] >=1.030, Urine Protein 1+H, Urine Glucose (UA) NEGATIVE, Urine Ketones NEGATIVE, Urine Nitrite NEGATIVE, Urine Bilirubin NEGATIVE, Urine Urobilinogen 0.2, Urine Leukocyte Esterase 1+H, Urine RBC (Auto) TRACE-IH, Urine RBC 0-2, Urine WBC 5- 10H, Urine Squamous Epithelial Cells 0-2, Urine Crystals NONE, Urine Bacteria FEWH, Urine Casts PRESENT, Urine Hyaline Casts 5-10H, Urine Mucus SMALLH, Urine Culture Indicated CULTURE PENDING 10/31/21 21:00: ASHLEY LAU MD Oct 31, 2021 21:20
[2021-10-31] MEDS ORDERED: ONDANSETRON 4 MG/2 ML (SDV) Z0FRAN IV PRN (21:30)
[2021-10-31] MEDS ORDERED: NS IV 1000 ML 1,000 ML IV SCH (22:00)
[2021-10-31] MEDS: NS IV 1000 ML 1,000 ML IV SCH (22:43)
[2021-11-01 05:38] LABS: BASOPHILS % (AUTO) 0 % (0-10); EOSINOPHILS % (AUTO) 1 % (0-10); HEMATOCRIT 35 % (40-54); HEMOGLOBIN 11.6 g/dL (13.3-17.7); LYMPHOCYTES # (AUTO) 0.7 10^3/uL (1.0-4.0); LYMPHOCYTES % (AUTO) 12 % (12-44); MEAN CORPUSCULAR HEMOGLOBIN 29 pg (25-34); MEAN CORPUSCULAR HGB CONC 33 g/dL (32-36); MEAN CORPUSCULAR VOLUME 87 fL (80-99); MEAN PLATELET VOLUME 10.3 fL (9.0-12.2); MONOCYTES # (AUTO) 0.8 10^3/uL (0.0-1.0); MONOCYTES % (AUTO) 13 % (0-12); NEUTROPHILS # (AUTO) 4.5 10^3/uL (1.8-7.8); NEUTROPHILS % (AUTO) 74 % (42-75); PLATELET COUNT 167 10^3/uL (130-400); WHITE BLOOD COUNT 6.1 10^3/uL (4.3-11.0)
[2021-11-01 06:01] LABS: BILIRUBIN,TOTAL 0.4 MG/DL (0.1-1.0); CREATININE SERUM 0.81 MG/DL (0.60-1.30); POTASSIUM 3.9 MMOL/L (3.6-5.0); TOTAL PROTEIN 5.8 GM/DL (6.4-8.2)
[2021-11-01 06:05] LABS: MAGNESIUM 1.1 MG/DL (1.6-2.4)
[2021-11-01] MEDS ORDERED: NS IV 500 ML 500 ML IV PRN (06:15)
[2021-11-01] MEDS: MAGNESIUM 1 GM/100 ML IVPB 100 ML IV SCH ×4 (06:41→10:51)
[2021-11-01] MEDS: RX-NIRMATRELVIR/RITONAVIR (PAXLOVID) #30 TABS PO SCH ×2 (06:41→19:34)
[2021-11-01] MEDS: inSUlin ASPART (NovoLOG) 1 UNIT/0.01 ML (CHARGE PER UNIT) SC SCH ×4 (06:41→19:56)
--- NOTE | 2021-11-01 09:26 | Tele-ICU Progress Note ---
Subjective Date Seen by a Provider: Nov 01, 2021 Subjective/Events-last exam This virtual visit was conducted using real time audio/video. Thank you for asking us to see this patient for Covid +, dehyd., fever and hypotension earlier. PMH: CVA, DM2, HTN, HL SH: smoking history: N PE: Resting comfortably on camera. VSS. O2 sat 95% on RA. HEENT: No obvious masses, adenopathy or JVD. Chest: clear to auscultation. CV: RRR S1 S2 No murmur or added sounds. Abd: Non-tender. Bowel sounds Y. : Unremarkable. Shannon Y. LIFE ASSURANCE REPRESENTATIVE/psychiatric: L hemiparesis. Extremities: edema. Capillary refill < 3 seconds. Skin: unremarkable. Results: Decreased PO4 1.1, Hb 11.6. CXR: possible L infilt. . Available chart/ vitals / labs / images reviewed. Video assessment done using teleICU camera, rest of exam as per RN. A/P: Critical Care: critically ill patient. Cont. IVF, SSI. Received Paxlovid in ER. In view of Covid, hypotension and hemiparesis would consider Duplex US of B LEs and CTAC to rule out thromboembolic disease. Would replace PO4. Discussed with RN Tory. Asked RN to reach out to eICU if any questions or concerns later. Time spent with patient/coordination of care with other health professionals (mins): 22 Sepsis Event Evaluation Height, Weight, BMI Height: 6'2.00" Weight: 160lbs. 4.8oz. 72.155925qm; 24.49 BMI Method:Stated Focused Exam Lactate Level 10/31/21 21:00: Lactic Acid Level 2.53*H 10/31/21 23:08: Lactic Acid Level 2.50*H 11/01/21 01:30: Lactic Acid Level 1.83 Exam Exam Patient acknowledged, consented, and participated in this virtual visit which was conducted using real time audio/video Vital Signs Date Time Temp Pulse Resp B/P (MAP) Pulse Ox O2 Delivery O2 Flow Rate FiO2 11/01/21 09:00 77 20 111/67 (82) 93 Room Air 11/01/21 08:00 71 19 98/59 (72) 90 Room Air 11/01/21 07:35 37.4 11/01/21 07:00 79 18 106/66 (79) 94 Room Air 11/01/21 07:00 74 11/01/21 06:00 75 13 110/65 (80) 93 Room Air 11/01/21 05:00 75 17 117/64 (81) 94 Room Air 11/01/21 04:00 38.2 11/01/21 04:00 78 15 113/65 (81) 94 Room Air 11/01/21 04:00 Room Air 11/01/21 03:00 74 20 115/69 (84) 96 Room Air 11/01/21 02:00 76 16 110/64 (79) 95 Room Air 11/01/21 01:00 77 20 105/63 (77) 94 Room Air 11/01/21 01:00 82 11/01/21 00:00 37.7 11/01/21 00:00 77 17 113/66 (82) 96 Room Air 11/01/21 00:00 Room Air 10/31/21 23:00 75 18 113/67 (82) 97 Room Air 10/31/21 22:30 71 15 92/56 (68) 97 Room Air 10/31/21 22:00 74 14 85/56 (66) 95 Room Air 10/31/21 21:45 77 16 86/54 (65) 97 Room Air 10/31/21 21:30 74 13 86/58 (67) 98 Room Air 10/31/21 21:30 Room Air 10/31/21 21:27 80 10/31/21 21:15 74 13 100/61 (74) 98 Room Air 10/31/21 21:10 78 18 80/52 93 Room Air 10/31/21 21:01 36.9 77 18 80/52 (61) 94 0 10/31/21 18:23 38.2 10/31/21 16:58 38.1 97 18 113/71 94 Room Air 10/31/21 16:58 38.2 97 18 113/71 (85) 94 I & O 11/01/21 07:00 Intake Total 5350 ml Output Total 1500 ml Balance 3850 ml Height & Weight Height: 6'2.00" Weight: 160lbs. 4.8oz. 72.431367ku; 24.49 BMI Method:Stated General Appearance: No Apparent Distress, WD/WN HEENT: PERRL/EOMI, Pharynx Normal Neck: Non Tender, Supple Respiratory: Lungs Clear, Normal Breath Sounds Cardiovascular: Regular Rate, Rhythm, No Murmur Capillary Refill: Less Than 3 Seconds Extremity: Non Tender, No Calf Tenderness, Other (Left-sided residual weakness from stroke is not changed for the patient.) Neurologic/Psychiatric: Alert, Oriented x3 Results Lab Laboratory Tests 10/31/21 17:16 11/01/21 05:06 Assessment/Plan Assessment/Plan See free text. Critical Care: Critically Ill Patient USAMA WHALEY MD Nov 01, 2021 09:26
[2021-11-01] MEDS ORDERED: LISI2.5T13 PO (10:12)
[2021-11-01] MEDS ORDERED: PANT40TA2 PO (10:12)
[2021-11-01] MEDS ORDERED: ATOR20TA66 PO (10:12)
[2021-11-01] MEDS ORDERED: ASPI-999 PO (10:12)
[2021-11-01] MEDS ORDERED: DONE5TAB30 PO (10:12)
[2021-11-01] MEDS ORDERED: METF-399 PO (10:12)
[2021-11-01] MEDS ORDERED: SERT-413 PO (10:12)
--- NOTE | 2021-11-01 11:00 | History & Physical-Hospitalist ---
History of Present Illness HPI/Chief Complaint Here with report of fever and altered mental status from [facility]. Apparently he was seen there today and found to have COVID. Patient does report fever and chills as well as mild cough and runny nose. 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 He has been vaccinated from COVID. Does have chronic urinary incontinence. Patient has relatively few complaints.Upon my arrival the patient's temperature was down overnight his blood pressure has come up predominantly to the 100 110 systolic range. He has not had any associated tachycardia denies chest pain or shortness of breath at rest reports fatigue and has had a nonproductive cough for the past week with progressive increase in weakness. He reports no sputum production. He had not been around anybody who had been ill reports no past history of COVID he believes he has had several COVID vaccinations but cannot tell me when his last COVID vaccination was. he exhibited somewhat loose sounding nonproductive cough without respiratory distress during the interview. He denied chest pain palpitations syncope presyncope orthopnea or PND. He does report generalized weakness worse than baseline. Date Seen 11/01/21 Time Seen by a Provider: 09:30 Attending Physician Lucian Rust MD PCP Admitting Physician: Nishant Arceo MD Attending Physician: Nishant Arceo MD Referring Physician Date of Admission Oct 31, 2021 at 19:13 Home Medications & Allergies Home Medications Reviewed patient Home Medication Reconciliation performed by pharmacy medication reconciliations master control technician and/or nursing. Patients Allergies have been reviewed. Allergies Allergies Coded Allergies Influenza Virus Vaccines (Verified Allergy, Unknown, 05/23/09) Uncoded Allergies FLU SHOT ( Allergy, Mild, 05/22/09) Past Qbwjkre-Mokvgp-Dnugbi Hx Patient Social History Tobacco Use?: No Tobacco type used: Cigarettes Smoking Status: Former Smoker Smokeless Tobacco Frequency: Never a User Use of E-Cig and/or Vaping dev: No Substance use?: No Alcohol Use?: No Pt feels they are or have been: No Immunizations Up To Date First/Initial COVID19 Vaccinat: 2020 Second COVID19 Vaccination Ji: 2020 Tetanus Booster (TDap): Unknown Hepatitis A: No Hepatitis B: No PED Vaccines UTD: Yes Date of Pneumonia Vaccine: Apr 05, 2016 Seasonal Allergies Seasonal Allergies: No Current Status Advance Directives: Unable to obtain Communicates: Verbally Primary Language: Iraqi Preferred Spoken Language: Iraqi Is interpretation needed?: No Implanted or Applied Medical D: None Past Medical History Stroke Gastroesophageal Reflux, Hemorrhoids Diabetes, Non-Insulin dep Loss of Vision: Bilateral Hearing Impairment: Hard of Hearing Blood Disorders: No Family Medical History Reviewed Nursing Family Hx Review of Systems Constitutional: see HPI Physical Exam Physical Exam Vital Signs Vital Signs - First Documented 10/31/21 10/31/21 16:58 21:01 Temp 38.2 Pulse 97 Resp 18 B/P (MAP) 113/71 (85) Pulse Ox 94 O2 Delivery Room Air O2 Flow Rate 0 Capillary Refill : Less Than 3 Seconds Height, Weight, BMI Height: 6'2.00" Weight: 160lbs. 4.8oz. 72.248203st; 24.49 BMI Method:Stated General Appearance: No Apparent Distress, Other (Fatigued in appearance) Neck: Normal Inspection Respiratory: No Accessory Muscle Use, No Respiratory Distress, Other ( feel ral es over the right middle lobe area that clear with several deep inspirations no wheezing or rhonchi noted) Cardiovascular: Regular Rate, Rhythm, No Edema, No Gallop, No JVD, No Murmur, Normal Peripheral Pulses Gastrointestinal: Normal Bowel Sounds, No Organomegaly, No Pulsatile Mass, Non Tender, Soft Extremity: Normal Capillary Refill, Normal Inspection, Normal Range of Motion, Non Tender, No Calf Tenderness, No Pedal Edema Neurologic/Psychiatric: Alert, Motor Weakness ( left upper and lower extremity 4+ right 4-5 to 5+ out of 5 strength.) Results Results/Procedures Labs Laboratory Tests 10/31/21 17:16 11/01/21 05:06 Patient resulted labs reviewed. Assessment/Plan Admission Diagnosis 1. COVID infection with likely right middle lobe pneumonia. Considering normal white count and normal procalcitonin level viral etiology/COVID is most likely patient met criteria for sepsis but with IV fluids alone blood pressure is responding in an individual who apparently has low normal blood pressure at baseline. His blood pressure declined after his first dose of Paxlovid but there was no change after his second dose. Secondary to his hypotension he was admitted to the intensive care unit as he is doing better we will transfer him to the floor continuing Paxlovid. 2. Considering COVID infection he did have saturations down to 90% but most the time is been running higher than this will obtain a D-dimer level if significantly elevated will proceed with CTA of the lungs. 3. History of type 2 diabetes patient is unclear on his current medications in the process of getting his medication list from family for now sliding-scale insulin but likely resumption of home diabetic medications continue diabetic diet and fingersticks before meals and at bedtime. 4. 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 5. Hypertension reported if he is on any antihypertensive medication will hold Due to hypotension in the emergency room and now low normal blood pressures. Admission Status: Observation NISHANT ARCEO MD Nov 01, 2021 11:00
[2021-11-01] MEDS: NS IV 1000 ML 1,000 ML IV SCH (11:37)
[2021-11-01 16:27] VITALS: BP 105/62
[2021-11-01] MEDS ORDERED: ASPIRIN 81 MG CHEW (CHILDREN'S ASA) PO NR (17:00)
[2021-11-01] MEDS ORDERED: IOHEXOL 350 MG/ML 100 ML (OMNIPAQUE 350) VIAL IV ONE (17:30)
[2021-11-01] MEDS ORDERED: NS 100 ML (IVPB) BAG IV ONE (17:30)
[2021-11-01] MEDS ORDERED: HOLD METFORMIN - RECEIVED CONTRAST 20 ML VIAL IV SCH (17:30)
--- NOTE | 2021-11-01 18:55 | Diagnostic Imaging Report ---
PROCEDURE: CT angiography of the chest with contrast. TECHNIQUE: Multiple contiguous axial images were obtained through the chest after uneventful bolus administration of intravenous contrast. 3D reconstructed CTA MIP acquisitions were also performed. Auto Exposure Controls were utilized during the CT exam to meet ALARA standards for radiation dose reduction. INDICATION: COVID positive. Positive D-dimer. Shortness of breath. EXAMINATION: CTA chest 11/01/2021. FINDINGS: Comparison made to CT chest 07/12/2018 There is thrombus within the distal aspect of the left main pulmonary artery extending into multiple branches of the left lower lobe. There is suggestion of a small embolus within a proximal branch of the left upper lobe anteriorly. Remaining central and proximal segmental pulmonary arteries patent. No saddle embolus. There is diffuse atherosclerotic disease along the aorta. Minimal adenopathy noted in the perihilar regions with no mediastinal adenopathy. No pericardial or pleural effusions noted. There is bibasilar dependent atelectasis. There is scar or atelectasis scattered throughout the lungs with emphysematous changes also noted. There is a calcified granuloma in the anterior left upper lobe. No suspicious lung masses. Upper abdomen demonstrates an incompletely imaged large cystic lesion in the right kidney. There is evidence of old granulomatous disease within the spleen and liver. There are nonobstructive stones in the left kidney. There is no acute osseous abnormality. IMPRESSION: 1. Pulmonary emboli within the distal left main pulmonary artery extending into branches of the left lower lobe and left upper lobe. No saddle embolus. 2. Bibasilar atelectasis with chronic changes including changes of COPD within the lungs. Other incidental findings as detailed above. Dr. Hannah paged at 7:50 PM on 11/01/2021. Dictated by: Dictated on workstation # [id number]
[2021-11-01 20:28] VITALS: BP 102/63
[2021-11-01] MEDS: APIXABAN 5 MG (ELIQUIS) TABLET PO SCH (20:41)
[2021-11-02] VITALS: BP 108/71
[2021-11-02] MEDS: NS IV 1000 ML 1,000 ML IV SCH ×3 (00:16→16:44)
[2021-11-02 04:13] VITALS: BP 109/70
[2021-11-02 05:38] LABS: BASOPHILS % (AUTO) 1 % (0-10); EOSINOPHILS # (AUTO) 0.3 10^3/uL (0.0-0.3); EOSINOPHILS % (AUTO) 5 % (0-10); HEMATOCRIT 37 % (40-54); HEMOGLOBIN 12.4 g/dL (13.3-17.7); LYMPHOCYTES # (AUTO) 1.3 10^3/uL (1.0-4.0); LYMPHOCYTES % (AUTO) 23 % (12-44); MEAN CORPUSCULAR HEMOGLOBIN 30 pg (25-34); MEAN CORPUSCULAR HGB CONC 34 g/dL (32-36); MEAN CORPUSCULAR VOLUME 87 fL (80-99); MEAN PLATELET VOLUME 9.6 fL (9.0-12.2); MONOCYTES # (AUTO) 0.7 10^3/uL (0.0-1.0); MONOCYTES % (AUTO) 12 % (0-12); NEUTROPHILS # (AUTO) 3.3 10^3/uL (1.8-7.8); NEUTROPHILS % (AUTO) 59 % (42-75); PLATELET COUNT 175 10^3/uL (130-400); WHITE BLOOD COUNT 5.6 10^3/uL (4.3-11.0)
[2021-11-02 06:03] LABS: ALBUMIN 3.1 GM/DL (3.2-4.5); BILIRUBIN,TOTAL 0.6 MG/DL (0.1-1.0); CALCIUM 7.9 MG/DL (8.5-10.1); CREATININE SERUM 0.72 MG/DL (0.60-1.30); MAGNESIUM 1.6 MG/DL (1.6-2.4); PHOSPHORUS 2.5 MG/DL (2.3-4.7); POTASSIUM 3.8 MMOL/L (3.6-5.0)
[2021-11-02] MEDS: POTASSIUM CL 10MEQ/50ML IVPB 50 ML IV SCH (06:04)
[2021-11-02] MEDS: KCL 20 MEQ TAB (K-DUR) PO SCH (06:04)
[2021-11-02] MEDS: inSUlin ASPART (NovoLOG) 1 UNIT/0.01 ML (CHARGE PER UNIT) SC SCH ×4 (06:05→20:31)
[2021-11-02] MEDS: MAGNESIUM 1 GM/100 ML IVPB 100 ML IV SCH ×3 (06:05→07:48)
[2021-11-02] MEDS: RX-NIRMATRELVIR/RITONAVIR (PAXLOVID) #30 TABS PO SCH ×2 (06:18→16:45)
[2021-11-02 08:15] VITALS: BP 121/75
[2021-11-02] MEDS: APIXABAN 5 MG (ELIQUIS) TABLET PO SCH ×2 (09:10→20:31)
[2021-11-02] MEDS: ASPIRIN 81 MG CHEW (CHILDREN'S ASA) PO SCH (09:10)
--- NOTE | 2021-11-02 09:46 | Progress Note - Hospitalist ---
Subjective HPI/CC On Admission Date Seen by Provider: Nov 02, 2021 Time Seen by Provider: 09:41 Here with report of fever and altered mental status from [facility]. Apparently he was seen there today and found to have COVID. Patient does report fever and chills as well as mild cough and runny nose. 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 He has been vaccinated from COVID. Does have chronic urinary incontinence. Patient has relatively few complaints.Upon my arrival the patient's temperature was down overnight his blood pressure has come up predominantly to the 100 110 systolic range. He has not had any associated tachycardia denies chest pain or shortness of breath at rest reports fatigue and has had a nonproductive cough for the past week with progressive increase in weakness. He reports no sputum production. He had not been around anybody who had been ill reports no past history of COVID he believes he has had several COVID vaccinations but cannot tell me when his last COVID vaccination was. he exhibited somewhat loose sounding nonproductive cough without respiratory distress during the interview. He denied chest pain palpitations syncope presyncope orthopnea or PND. He does report generalized weakness worse than baseline. Subjective/Events-last exam Patient reports feeling better decreased cough no chest pain or shortness of breath. Focused Exam Lactate Level 10/31/21 21:00: Lactic Acid Level 2.53*H 10/31/21 23:08: Lactic Acid Level 2.50*H 11/01/21 01:30: Lactic Acid Level 1.83 Objective Exam Vital Signs Vital Signs Date Time Temp Pulse Resp B/P (MAP) Pulse Ox O2 Delivery O2 Flow Rate FiO2 11/02/21 08:15 36.4 61 20 121/75 (90) 96 Room Air 10/31/21 21:01 0 Capillary Refill : Less Than 3 Seconds General Appearance: No Apparent Distress Respiratory: No Accessory Muscle Use, No Respiratory Distress, Other (Few rales right lower and right middle lobe area chest otherwise clear) Cardiovascular: Regular Rate, Rhythm, No Edema, No Gallop, No JVD, No Murmur Results/Procedures Lab Laboratory Tests 11/02/21 05:30 Patient resulted labs reviewed. Assessment/Plan Assessment and Plan Assess & Plan/Chief Complaint 1. COVID infection withLikely associated pulmonary embolism noted on CTA yesterday there is no evidence for hemodynamic instability and Eliquis 10 mg twice daily was started yesterday evening. CT findings more compatible with atelectasis on the right interestingly most of his pulmonary emboli are on the left .3. History of type 2 diabetes patient is unclear on his current medications in the process of getting his medication list from family for now sliding-scale insulin but likely resumption of home diabetic medications continue diabetic diet and fingersticks before meals and at bedtime. 4. 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 continuing baby aspirin and statin therapy in the form of atorvastatin. 5. Hypertension reported if he is on any antihypertensive medication will hold Due to hypotension in the emergency room and now low normal blood pressures. 6. COPD changes noted on CTA despite this and pulmonary embolism no significant hypoxemia on room air. 7. Presumed dementia as the patient has been on Aricept will hold for now. Critical Care Critically Ill Patient VAZQUEZ ARCEO MD Nov 02, 2021 09:46
[2021-11-02 11:43] VITALS: BP 128/79
[2021-11-02 16:05] VITALS: BP 110/73
[2021-11-02 20:20] VITALS: BP 119/76
[2021-11-03] VITALS (7 sets, daily range): BP systolic 110–131; BP diastolic 67–85
[2021-11-03] MEDS: NS IV 1000 ML 1,000 ML IV SCH ×3 (03:55→18:18)
[2021-11-03] MEDS: inSUlin ASPART (NovoLOG) 1 UNIT/0.01 ML (CHARGE PER UNIT) SC SCH ×4 (06:04→20:18)
[2021-11-03 06:18] LABS: POTASSIUM 3.9 MMOL/L (3.6-5.0)
[2021-11-03] MEDS: RX-NIRMATRELVIR/RITONAVIR (PAXLOVID) #30 TABS PO SCH ×2 (06:18→18:17)
[2021-11-03 06:19] LABS: CALCIUM 7.9 MG/DL (8.5-10.1)
[2021-11-03 06:23] LABS: CREATININE SERUM 0.74 MG/DL (0.60-1.30)
[2021-11-03] MEDS: POTASSIUM CL 10MEQ/50ML IVPB 50 ML IV SCH (06:23)
[2021-11-03] MEDS: KCL 20 MEQ TAB (K-DUR) PO SCH (06:23)
[2021-11-03 06:25] LABS: MAGNESIUM 1.4 MG/DL (1.6-2.4)
[2021-11-03] MEDS: MAGNESIUM 1 GM/100 ML IVPB 100 ML IV SCH ×3 (06:36→08:58)
[2021-11-03] MEDS: ASPIRIN 81 MG CHEW (CHILDREN'S ASA) PO SCH (08:57)
[2021-11-03] MEDS: APIXABAN 5 MG (ELIQUIS) TABLET PO SCH ×2 (08:57→20:18)
[2021-11-03] MEDS ORDERED: guaiFENesin/DM (ROBITUSSIN DM) 10 ML UDC PO PRN (10:45)
[2021-11-03] MEDS ORDERED: BENZONATATE 100 MG (TESSALON) CAPSULE PO PRN (10:45)
[2021-11-03] MEDS ORDERED: NIRMATRELVIR/RITONAVIR (PAXLOVID) TABLET PO SCH (11:30)
--- NOTE | 2021-11-03 11:41 | Progress Note - Hospitalist ---
FANNIE CASTAÑEDA 11/03/21 1141: Subjective HPI/CC On Admission Date Seen by Provider: Nov 03, 2021 Time Seen by Provider: 11:35 Here with report of fever and altered mental status from [facility]. Apparently he was seen there today and found to have COVID. Patient does report fever and chills as well as mild cough and runny nose. 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 He has been vaccinated from COVID. Does have chronic urinary incontinence. Patient has relatively few comp laints.Upon my arrival the patient's temperature was down overnight his blood pressure has come up predominantly to the 100 110 systolic range. He has not had any associated tachycardia denies chest pain or shortness of breath at rest reports fatigue and has had a nonproductive cough for the past week with progressive increase in weakness. He reports no sputum production. He had not been around anybody who had been ill reports no past history of COVID he believes he has had several COVID vaccinations but cannot tell me when his last COVID vaccination was. he exhibited somewhat loose sounding nonproductive cough without respiratory distress during the interview. He denied chest pain palpitations syncope presyncope orthopnea or PND. He does report generalized weakness worse than baseline. Subjective/Events-last exam Today patient is awake and watching TV in bed. He is coughing throughout the exam without any sputum. He denies any fever/chills, chest pain or shortness of breath. CXR shows pulmonary emboli within the left lung. Patient is COVID positive. States he has been vaccinated in the past. Will receive PT/OT today to assess his strength and capabilities. Focused Exam Lactate Level 10/31/21 21:00: Lactic Acid Level 2.53*H 10/31/21 23:08: Lactic Acid Level 2.50*H 11/01/21 01:30: Lactic Acid Level 1.83 Objective Exam Vital Signs Vital Signs Date Time Temp Pulse Resp B/P (MAP) Pulse Ox O2 Delivery O2 Flow Rate FiO2 11/03/21 11:13 36.9 66 20 110/67 (81) 96 Room Air 10/31/21 21:01 0 Capillary Refill : Less Than 3 Seconds General Appearance: No Apparent Distress, WD/WN HEENT: Moist Mucous Membranes Respiratory: Chest Non Tender, No Accessory Muscle Use, No Respiratory Distress Cardiovascular: Regular Rate, Rhythm Neurologic/Psychiatric: Alert, Normal Mood/Affect Skin: Normal Color, Warm/Dry Lymphatic: No Adenopathy Results/Procedures Lab Laboratory Tests 11/03/21 05:50 Patient resulted labs reviewed. Assessment/Plan Assessment and Plan Assess & Plan/Chief Complaint Assessment: COVID-19 Pulmonary Emboli Left Lung Lobes History of Type 2 Diabetes Mellitus History of Right sided CVA with Left sided hemiparesis HTN COPD Dementia Plan: Change to inpatient status Continue Eliquis 10 mg 2x daily PT/OT Evaluation Continue home DM meds Continue baby aspirin and atorvastatin Monitor BP Critical Care: Critically Ill Patient SHELIA KERR DO 11/04/21 0459: Subjective Subjective/Events-last exam Pt is doing pretty well Eating and drinking well PT and OT will be ordered In-patient rehab will be ordered History of a stroke with left sided weakness Covid maintained as supportive care Review of Systems General: Fatigue, Malaise Objective Exam General Appearance: No Apparent Distress, WD/WN, Chronically ill Respiratory: Lungs Clear, Normal Breath Sounds Cardiovascular: Regular Rate, Rhythm Neurologic/Psychiatric: Alert, Oriented x3, Normal Mood/Affect, Motor Weakness Assessment/Plan Assessment and Plan Assess & Plan/Chief Complaint PT OT Supportive care Supervisory-Addendum Brief Verification & Attestation Participated in pt care: history, MDM, physical Personally performed: exam, history, MDM, supervision of care Care discussed with: Medical Student Procedures: n/a Results interpretation: Verified all documentation Verification and Attestation of Medical Student E/M Service A medical student performed and documented this service in my presence. I reviewed and verified all information documented by the medical student and made modifications to such information, when appropriate. I personally performed the physical exam and medical decision making. Shelia Kerr Nov 04, 2021,04:58 FANNIE CASTAÑEDA Nov 03, 2021 11:41 SHELIA KERR DO Nov 04, 2021 04:59
--- NOTE | 2021-11-03 13:32 | Occupational Therapy Eval ---
OT Evaluation-General/PLF Medical Diagnosis Admission Date Nov 03, 2021 at 10:42 Medical Diagnosis: COVID19, dehydration Onset Date: Nov 03, 2021 Therapy Diagnosis Therapy Diagnosis: decreased ADL status Height/Weight Height (Feet): 6 Height (Inches): 2.00 Weight (Pounds): 160 Weight (Ounces): 4.8 Precautions Precautions/Isolations: Airborne Isolation, Droplet Isolation Referral Physician: Ros Referral Reason: Evaluation/Treatment Medical History Pertinent Medical History: CAD, DM, GERD, HTN, Smoking Additional Medical History CVA ( L side deficits), GERD, DM Current History ED via EMS from [facility] urgent care, COVID+ Social History Home: Single Level Current Living Status: Children ADL-Prior Level of Function SCALE: Activities may be completed with or without assistive devices. 9-Xmzabopnps-pkstidl completes the activity by him/herself with no assistance from a helper. 5-Set-up or Clean-up Assistance-helper sets up or cleans up; patient completes activity. [place] assists only prior to or following the activity. 4-Supervision or Touching Assistance-helper provides verbal cues and/or touching/steadying and/or contact guard assistance as patient completes activity. Assistance may be provided throughout the activity or intermittently. 3-Partial/Moderate Assistance-helper does LESS THAN HALF the effort. [place] lifts, holds or supports trunk or limbs, but provides less than half the effort. 2-Substantial/Maximal Assistance-helper does MORE THAN HALF the effort. [place] lifts or holds trunk or limbs and provides more than half the effort. 2-Gsghikpsf-miujds does ALL the effort. Patient does none of the effort to complete the activity. Or, the assistance of 2 or more helpers is required for the patient to complete the activity. If activity was not attempted, code reason: 7-Patient Refused. 9-Not Applicable-not attempted and the patient did not perform the activity before the current illness, exacerbation or injury. 10-Not Attempted due to Environmental Limitations-(lack of equipment, weather restraints, etc.). 88-Not Attempted due to Medical Conditions or Safety Concerns. ADL PLOF Comments Pt reports being w/c bound since his stroke several years ago, he requires assistance from daughter or son transferring in/out of w/c, recliner or BSC/toilet. Pt typically sleeps in a recliner. His daughter assists pt with all ADLs including bathing, LE/UE dressing, footwear, and IADLS. Pt unclear on how much assistance he requires with ADLs, "some" with UE dressing, and "a lot" with LE dressing/footwear. Pt's daughter works during the day, so pt is alone at times. When he is alone, he stays in w/c and doesn't transfer out of it. Self Care: Needed Some Help OT Current Status Subjective Pt in bed, agreeable to OT evaluation/tx. Pt feels like he is a little worse/weaker than he typically is. Mental Status/Objective Patient Orientation: Person, Place, Situation Current Hand Dominance: Right Upper Extremity ROM RUE WFL LUE decreased (Deficits from CVA). Shoulder flexion to approx 80 degrees, WFL elbow flexion, elbow extension limited -90degrees due to muscle contracture, wrist flexion WFL, wrist extension to almost neutral, limited finger flexion (unable to make fist), WFL finger extension with flexed wrist. Upper Extremity Coordination decreased due to limitations in LUE. RUE WFL Upper Extremity Strength LUE impaired RUE grossly 4/5 ADL-Treatment Eating (QC): 6 (IND ) Toileting Hygiene (QC): 5 (set up with urinal) Other Treatments Pt in bed, agreeable to OT evaluation. Pt provided information about OF and home set up and participated in UE screen. Pt reports he feels like he is worse than his baseline, claiming he is weaker and requires more assistance with ADLs. At [facility], pt has assistance with all ADLs. Pt agreeable to continued OT services with focus on RUE strengthening, activity tolerance, and increasing independence with ADLs to decrease caregiver burden. OT educated pt on UE exercises for RUE including: shoulder flexion, elbow flexion/extension, front punch, and finger flexion/extension. Pt verbalized and demo'd understanding, completing x5 reps each. Pt encouraged to complete exercises throughout the day, increasing reps as tolerated, he verbalized understanding. Post tx, pt in bed call light in reach and all needs met. Education OT Patient Education: Correct positioning, Energy conservation, Exercise program, Modified ADL techniques, Progress toward Goal/Update tx plan, Purpose of tx/functional activities, Rehab process Teaching Recipient: Patient Teaching Methods: Discussion Response to Teaching: Verbalize Understanding, Reinforcement Needed OT Ophthalmic Medical Technician Goals Ophthalmic Medical Technician Goals Time Frame: Nov 14, 2021 Eating (QC): 5 Oral Hygiene (QC): 5 Upper Body Dressing (QC): 3 Pt will demonstrate independence wit HEP in order to increase RUE strength and activity tolerance. Additional Goals: 1-Demonstrate ADL Tasks, 2-Verbalize Understanding, 3- ImproveStrength/Curtis 1=Demonstrate adherence to instructed precautions during ADL tasks. 2=Patient will verbalize/demonstrate understanding of assistive devices/modifications for ADL. 3=Patient will improve strength/tolerance for activity to enable patient to perform ADL's. OT Education/Plan Problem List/Assessment Assessment: Decreased Activ Tolerance, Decreased UE Strength, Impaired Bed Mobility, Impaired Coordination, Impaired Funct Balance, Impaired I ADL's, Impaired Self-Care Skills, Restricted Funct UE ROM Pt would benefit from skilled OT services in order to increase RUE strength and activity tolerance, and increase independence with ADLs in order to decrease caregiver burden. Discharge Recommendations Plan/Recommendations: Continue POC Treatment Plan/Plan of Care Patient would benefit from OT for education, treatment and training to promote independence in ADL's, mobility, safety and/or upper extremity function for ADL's. Plan of Care: ADL Retraining, Functional Mobility, UE Funct Exercise/Act, UE Neuromus Re-Ed/Coord Treatment Duration: Nov 14, 2021 Frequency: 3 times per week (3-5 times per week) Time/GCodes Start Time: 12:55 Stop Time: 13:07 Total Time Billed (hr/min): 12 Billed Treatment Time 1NATY ADDISON OT Nov 03, 2021 13:32
--- NOTE | 2021-11-03 14:02 | Physical Therapy Evaluation ---
PT Evaluation-General Medical Diagnosis Admission Date Nov 03, 2021 at 10:42 Medical Diagnosis: COVID19, dehydration Onset Date: Nov 03, 2021 Therapy Diagnosis Therapy Diagnosis: generalized weakness/debility Height/Weight Height (Feet): 6 Height (Inches): 2.00 Weight (Pounds): 160 Weight (Ounces): 4.8 Precautions Precautions/Isolations: Airborne Isolation, Droplet Isolation Referral Physician: Ros Reason for Referral: Evaluation/Treatment Medical History Pertinent Medical History: CAD, CVA (left hemiparesis), DM, GERD, HTN, Smoking History of Falls (past yr): Unknown Prior Surgery (last 100 days): No Current History ER secondary to fever and chills Reviewed History: Yes Social History Home: Single Level Current Living Status: Children Entry Into Home: Ramp Prior Prior Level of Function SCALE: Activities may be completed with or without assistive devices. 8-Znhmyuheln-thhpfsz completes the activity by him/herself with no assistance from a helper. 5-Set-up or Clean-up Assistance-helper sets up or cleans up; patient completes activity. [place] assists only prior to or following the activity. 4-Supervision or Touching Assistance-helper provides verbal cues and/or touching/steadying and/or contact guard assistance as patient completes activity. Assistance may be provided throughout the activity or intermittently. 3-Partial/Moderate Assistance-helper does LESS THAN HALF the effort. [place] lifts, holds or supports trunk or limbs, but provides less than half the effort. 2-Substantial/Maximal Assistance-helper does MORE THAN HALF the effort. [place] lifts or holds trunk or limbs and provides more than half the effort. 6-Xrsjlrlcc-haapkx does ALL the effort. Patient does none of the effort to complete the activity. Or, the assistance of 2 or more helpers is required for the patient to complete the activity. If activity was not attempted, code reason: 7-Patient Refused. 9-Not Applicable-not attempted and the patient did not perform the activity before the current illness, exacerbation or injury. 10-Not Attempted due to Environmental Limitations-(lack of equipment, weather restraints, etc.). 88-Not Attempted due to Medical Conditions or Safety Concerns. Bed Mobility: 2 Transfers (B,C,W/C): 1 Gait: 9 Stairs: 9 Wheelchair Mobility: 2 Indoor Mobility (Ambulation): Not [place] Stairs: Not [place] Prior Devices Use: Manual wheelchair per patient, family performs all bed mobility and transfers PLOF/w/c bound/nonambulatory PT Evaluation-Current Subjective Patient agrees to PT. Objective Patient Orientation: Person, Time, Situation Attachments: IV ROM/Strength ROM Lower Extremities bilateral LE WFL Strength Lower Extremities right LE 3/5 grossly/left LE 2+/5 grossly Integumentary/Posture Integumentary refer to nursing notes Bowel Incontinence: Yes Bladder Incontinence: Yes Posture WFL Neuromuscular (Tone, Coordination, Reflexes) diminished coordination Sensory Vision: Functional Hearing: Functional Hand Dominance: Right Transfers Roll Left to Right (QC): 2 Sit to Lying (QC): 2 Lying to Sitting/Side of Bed(Q: 2 Sit to Stand (QC): 2 Patient required bed change due to incontinence with max assist with rolling and up in bed repositioning Gait Does the Patient Walk?: No and Walking Goal NOT indicated Walk 10 feet (QC): 9 Walk 50 ft with 2 Turns(QC): 9 Walk 150 ft (QC): 9 Balance Sitting Static: Normal Sitting Dynamic: Fair Standing Static: Poor Standing Dynamic: Poor Assessment/Needs 76 y.o. male, will be seen short term by skilled PT to address functional strength and mobility to improve current LOF. Patient is max assist with all bed mobility and transfers PLOF and is non ambulatory. Rehab Potential: Fair PT Short Term Goals Short Term Goals Time Frame: Nov 08, 2021 Roll Left & Right: 3 Sit to lyin Lying to sitting on side of be: 3 Sit to stand: 2 Chair/jgx-uy-stxnf transfer: 2 PT Plan Problem List Problem List: Activity Tolerance, Functional Strength, Safety, Balance, Transfer, Bed Mobility Treatment/Plan Treatment Plan: Continue Plan of Care Treatment Plan: Bed Mobility, Education, Functional Activity Curtis, Functional Strength, Safety, Therapeutic Exercise, Transfers Treatment Duration: Nov 08, 2021 Frequency: 6 times per week Estimated Hrs Per Day: .25 hour per day Patient and/or Family Agrees t: Yes Time/GCodes Time In: 1313 Time Out: 1341 Total Billed Treatment Time: 28 Total Billed Treatment 1 visit EVModC 12 min FA 16 min DEMUNDO HENSON PT Nov 03, 2021 14:02
[2021-11-03] MEDS: NIRMATRELVIR/RITONAVIR (PAXLOVID) TABLET PO SCH (18:17)
[2021-11-04 04:00] VITALS: BP 131/77
[2021-11-04] MEDS: inSUlin ASPART (NovoLOG) 1 UNIT/0.01 ML (CHARGE PER UNIT) SC SCH ×4 (05:53→21:05)
[2021-11-04 06:17] LABS: BASOPHILS % (AUTO) 1 % (0-10); EOSINOPHILS # (AUTO) 0.6 10^3/uL (0.0-0.3); EOSINOPHILS % (AUTO) 9 % (0-10); HEMATOCRIT 36 % (40-54); HEMOGLOBIN 12.2 g/dL (13.3-17.7); LYMPHOCYTES # (AUTO) 1.5 10^3/uL (1.0-4.0); LYMPHOCYTES % (AUTO) 22 % (12-44); MEAN CORPUSCULAR HEMOGLOBIN 29 pg (25-34); MEAN CORPUSCULAR HGB CONC 34 g/dL (32-36); MEAN CORPUSCULAR VOLUME 87 fL (80-99); MEAN PLATELET VOLUME 9.9 fL (9.0-12.2); MONOCYTES # (AUTO) 0.6 10^3/uL (0.0-1.0); MONOCYTES % (AUTO) 9 % (0-12); NEUTROPHILS % (AUTO) 59 % (42-75); PLATELET COUNT 164 10^3/uL (130-400); WHITE BLOOD COUNT 6.8 10^3/uL (4.3-11.0)
[2021-11-04] MEDS: NIRMATRELVIR/RITONAVIR (PAXLOVID) TABLET PO SCH ×2 (06:31→17:56)
[2021-11-04] MEDS: RX-NIRMATRELVIR/RITONAVIR (PAXLOVID) #30 TABS PO SCH ×2 (06:53→17:57)
[2021-11-04 08:00] VITALS: BP 110/57
[2021-11-04] MEDS: NS IV 1000 ML 1,000 ML IV SCH ×2 (08:15→22:39)
[2021-11-04] MEDS: ASPIRIN 81 MG CHEW (CHILDREN'S ASA) PO SCH (08:15)
[2021-11-04] MEDS: APIXABAN 5 MG (ELIQUIS) TABLET PO SCH ×2 (08:15→21:12)
[2021-11-04 08:46] LABS: ALBUMIN 3.5 GM/DL (3.2-4.5)
[2021-11-04 08:47] LABS: POTASSIUM 4.2 MMOL/L (3.6-5.0)
[2021-11-04 08:48] LABS: CALCIUM 8.5 MG/DL (8.5-10.1)
[2021-11-04 08:49] LABS: TOTAL PROTEIN 6.8 GM/DL (6.4-8.2)
[2021-11-04 08:51] LABS: BILIRUBIN,TOTAL 0.7 MG/DL (0.1-1.0)
[2021-11-04 08:53] LABS: CREATININE SERUM 0.78 MG/DL (0.60-1.30)
[2021-11-04 08:56] LABS: MAGNESIUM 1.4 MG/DL (1.6-2.4)
[2021-11-04] MEDS: POTASSIUM CL 10MEQ/50ML IVPB 50 ML IV SCH (09:00)
[2021-11-04] MEDS ORDERED: MAGNESIUM 1 GM/100 ML IVPB 100 ML IV NR (09:00)
[2021-11-04] MEDS: KCL 20 MEQ TAB (K-DUR) PO SCH (09:01)
[2021-11-04] MEDS: MAGNESIUM 1 GM/100 ML IVPB 100 ML IV SCH ×2 (09:05→09:18)
--- NOTE | 2021-11-04 09:22 | Physical Therapy Daily Note ---
PT Daily Note-Current Subjective Patient agrees to PT. Pain Section J - Health Conditions 1. Rarely or not at all 2. Occasionally 3. Frequently 4. Almost constantly 8. Unable to answer Pain Effect on Sleep: 1 Pain Interference with Therapy: 1 Pain Interference w/Day-to-Day: 1 Mental Status Patient Orientation: Normal For Age Attachments: IV Transfers SCALE: Activities may be completed with or without assistive devices. 7-Wqlqbytyfw-yrcqlaq completes the activity by him/herself with no assistance from a helper. 5-Set-up or Clean-up Assistance-helper sets up or cleans up; patient completes activity. [place] assists only prior to or following the activity. 4-Supervision or Touching Assistance-helper provides verbal cues and/or touching/steadying and/or contact guard assistance as patient completes ac tivity. Assistance may be provided throughout the activity or intermittently. 3-Partial/Moderate Assistance-helper does LESS THAN HALF the effort. [place] lifts, holds or supports trunk or limbs, but provides less than half the effort. 2-Substantial/Maximal Assistance-helper does MORE THAN HALF the effort. [place] lifts or holds trunk or limbs and provides more than half the effort. 0-Vorgjsppb-qkjkgs does ALL the effort. Patient does none of the effort to complete the activity. Or, the assistance of 2 or more helpers is required for the patient to complete the activity. If activity was not attempted, code reason: 7-Patient Refused. 9-Not Applicable-not attempted and the patient did not perform the activity before the current illness, exacerbation or injury. 10-Not Attempted due to Environmental Limitations-(lack of equipment, weather restraints, etc.). 88-Not Attempted due to Medical Conditions or Safety Concerns. Sit to Lying (QC): 2 Lying to Sitting/Side of Bed(Q: 2 Sit to Stand (QC): 1 Gait Training Does the Patient Walk?: No and Walking Goal NOT indicated Exercises Supine Ex: Ankle pumps, Quad Set, Heel Slides, Straight leg raise, Hip abd/add Supine Reps: 15 (x 2 sets AAROM left LE due to old CVA) Seated Therapy Exercises: Ankle pumps, Long arc quads Seated Reps: 15 (x 2 sets AAROM left LE) Assessment Patient is non ambulatory PLOF and required max assist with all functional mobility PLOF. Family assist with all bed mobility, transfers and functional mobility. Patient remained in bed per patient request and is assisted with p ositioning. PT Short Term Goals Short Term Goals Time Frame: Nov 08, 2021 Roll Left & Right: 3 Sit to lyin Lying to sitting on side of be: 3 Sit to stand: 2 Chair/aiy-ue-npklt transfer: 2 PT Plan Treatment/Plan Treatment Plan: Continue Plan of Care Treatment Plan: Bed Mobility, Education, Functional Activity Curtis, Functional Strength, Safety, Therapeutic Exercise, Transfers Treatment Duration: Nov 08, 2021 Frequency: 6 times per week Estimated Hrs Per Day: .25 hour per day Patient and/or Family Agrees t: Yes Time/GCodes Time In: 825 Time Out: 848 Total Billed Treatment Time: 23 Total Billed Treatment 1 visit EX x 2 23 min EDMUNDO HENSON PT Nov 04, 2021 09:22
--- NOTE | 2021-11-04 10:33 | Occupational Ther Daily Note ---
OT Current Status-Daily Note Subjective Pt alert, lying in bed. Pt agrees to therapy. No c/o pain at this time. Nrsg in room throughout OT session. Mental Status/Objective Patient Orientation: Person, Place, Time, Situation Attachments: IV ADL-Treatment Pt agrees to oral care then nrsg brought bath packs for sponge bath. HOB fully raised, pt able to go from supine to EOB with SBA. Pt sat EOB with SBA to complete oral care. After supplies gathered, pt able to complete oral care by self. Pt given bath wipe and was able to complete upper body bathing with SBA for safety. Pt the stood from elevated surface holding onto chair 3x's, placed in front of pt, with mod A x1 and 2nd person assist for safety. Pt initially was retropulsive during standing then with education was able to stand with less assistance. Pt stood 3x's and fatigued quickly. Pt then sit to supine SBA, rolling side to side CGA then with FOB raised min A x2 to scoot self up in bed. Pt required assist x2 for lower body dressing in standing, if completed in bed max A x1. After therapy, pt lying in bed with call light/phone in reach. All needs met in room. Therapy Code Descriptions/Definitions Functional [place] Measure: 0=Not Assessed/NA 4=Minimal Assistance 1=Total Assistance 5=Supervision or Setup 2=Maximal Assistance 6=Modified [place] 3=Moderate Assistance 7=Complete IndependenceSCALE: Activities may be completed with or without assistive devices. 1-Kouvhznssu-mntifvk completes the activity by him/herself with no assistance from a helper. 5-Set-up or Clean-up Assistance-helper sets up or cleans up; patient completes activity. [place] assists only prior to or following the activity. 4-Supervision or Touching Assistance-helper provides verbal cues and/or touching/steadying and/or contact guard assistance as patient completes activity. Assistance may be provided throughout the activity or intermittently. 3-Partial/Moderate Assistance-helper does LESS THAN HALF the effort. [place] lifts, holds or supports trunk or limbs, but provides less than half the effort. 2-Substantial/Maximal Assistance-helper does MORE THAN HALF the effort. [place] lifts or holds trunk or limbs and provides more than half the effort. 6-Renunilqk-zthlkp does ALL the effort. Patient does none of the effort to complete the activity. Or, the assistance of 2 or more helpers is required for the patient to complete the activity. If activity was not attempted, code reason: 7-Patient Refused. 9-Not Applicable-not attempted and the patient did not perform the activity before the current illness, exacerbation or injury. 10-Not Attempted due to Environmental Limitations-(lack of equipment, weather restraints, etc.). 88-Not Attempted due to Medical Conditions or Safety Concerns. Oral Hygiene (QC): 5 Shower/Bathe Self (QC): 1 (Assist x2 to cleanse buttocks/dorcas area in standing. Max A if completed in supine.) Lower Body Dressing (QC): 1 (Assist x1 to stand and assist x1 to manipulate clothing.) On/Off Footwear: 2 Pt at baseline for PLOF with ADLs per pt report. OT Half-Way Goals Half-Way Goals Time Frame: Nov 14, 2021 Eating (QC): 5 Oral Hygiene (QC): 5 (met) Upper Body Dressing (QC): 3 Pt will demonstrate independence wit HEP in order to increase RUE strength and activity tolerance. Additional Goals: 1-Demonstrate ADL Tasks, 2-Verbalize Understanding, 3- ImproveStrength/Curtis 1=Demonstrate adherence to instructed precautions during ADL tasks. 2=Patient will verbalize/demonstrate understanding of assistive devices /modifications for ADL. 3=Patient will improve strength/tolerance for activity to enable patient to perform ADL's. OT Education/Plan Problem List/Assessment Assessment: Decreased Activ Tolerance, Decreased UE Strength, Dependent Transfers, Impaired Bed Mobility, Impaired Coordination, Impaired Funct Balance, Impaired Self-Care Skills, Restricted Funct UE ROM Pt would benefit from skilled OT services in order to increase RUE strength and activity tolerance, and increase independence with ADLs in order to decrease caregiver burden. Discharge Recommendations Plan/Recommendations: Continue POC Treatment Plan/Plan of Care Patient would benefit from OT for education, treatment and training to promote independence in ADL's, mobility, safety and/or upper extremity function for ADL's. Plan of Care: ADL Retraining, Functional Mobility, UE Funct Exercise/Act, UE Neuromus Re-Ed/Coord Treatment Duration: Nov 14, 2021 Frequency: 3 times per week (3-5 times per week) Rehab Potential: Fair Time/GCodes Start Time: 09:06 Stop Time: 09:45 Total Time Billed (hr/min): 39 Billed Treatment Time 1 visit-ADL 3 (39 min) AARTI STARR Nov 04, 2021 10:33
[2021-11-04 12:00] VITALS: BP 129/77
--- NOTE | 2021-11-04 12:02 | Progress Note - Hospitalist ---
FANNIE CASTAÑEDA 11/04/21 1201: Subjective HPI/CC On Admission Date Seen by Provider: Nov 04, 2021 Time Seen by Provider: 11:35 Here with report of fever and altered mental status from [facility]. Apparently he was seen there today and found to have COVID. Patient does report fever and chills as well as mild cough and runny nose. 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 He has been vaccinated from COVID. Does have chronic urinary incontinence. Patient has relatively few comp laints.Upon my arrival the patient's temperature was down overnight his blood pressure has come up predominantly to the 100 110 systolic range. He has not had any associated tachycardia denies chest pain or shortness of breath at rest reports fatigue and has had a nonproductive cough for the past week with progressive increase in weakness. He reports no sputum production. He had not been around anybody who had been ill reports no past history of COVID he believes he has had several COVID vaccinations but cannot tell me when his last COVID vaccination was. he exhibited somewhat loose sounding nonproductive cough without respiratory distress during the interview. He denied chest pain palpitations syncope presyncope orthopnea or PND. He does report generalized weakness worse than baseline. Subjective/Events-last exam 4 Day Hospital Course: Patient is a 76 y/o M with history of Type 2 DM, Right sided CVA with Left hemiparesis, HTN, COPD, and dementia was found to be positive for COVID-19 at [facility] 4 days ago. His initial complaints included fatigue and a nonproductive cough for the past week with progressive increase in weakness. Supportive care was initiated for COVID treatment. Additionally, initial CXR showed pulmonary emboli scattered throughout the left lung lobes. Received Apixaban for that. Patient was also evaluated by PT/OT. Today the patient is doing well. He has very few complaints. Denies any fever, chills, chest pain, or shortness of breath at this time. 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 Patient states he has also been eating, drinking well and lozada ving BMs with urination. Objective Exam Vital Signs Vital Signs Date Time Temp Pulse Resp B/P (MAP) Pulse Ox O2 Delivery O2 Flow Rate FiO2 11/04/21 08:21 Room Air 11/04/21 08:00 36.7 60 16 110/57 (74) 94 10/31/21 21:01 0 Capillary Refill : Less Than 3 Seconds General Appearance: No Apparent Distress HEENT: Moist Mucous Membranes Respiratory: Chest Non Tender, No Accessory Muscle Use, No Respiratory Distress Cardiovascular: Regular Rate, Rhythm, No Edema Extremity: No Calf Tenderness, No Pedal Edema Neurologic/Psychiatric: Alert, Normal Mood/Affect Lymphatic: No Adenopathy Results/Procedures Lab Laboratory Tests 11/04/21 06:14 11/04/21 08:25 Patient resulted labs reviewed. Assessment/Plan Assessment and Plan Assess & Plan/Chief Complaint Assessment: COVID-19 Pulmonary Emboli Left Lung Lobes History of Type 2 Diabetes Mellitus History of Right sided CVA with Left sided hemiparesis HTN COPD Dementia Plan: Continue Supportive care OT/PT Consider discharge soon SHELIA KERR DO 11/05/21 0549: Subjective Subjective/Events-last exam Pt is doing about the same Improving overall No falls No other issues Supervisory-Addendum Brief Verification & Attestation Participated in pt care: history, MDM, physical Personally performed: exam, history, MDM, supervision of care Care discussed with: Medical Student Procedures: n/a Results interpretation: Verified all documentation Verification and Attestation of Medical Student E/M Service A medical student performed and documented this service in my presence. I reviewed and verified all information documented by the medical student and made modifications to such information, when appropriate. I personally performed the physical exam and medical decision making. Shelia Kerr Nov 05, 2021,05:49 FANNIE CASTAÑEDA Nov 04, 2021 12:01 SHELIA KERR DO Nov 05, 2021 05:49
[2021-11-04] MEDS ORDERED: ATOR40TA70 PO (13:51)
[2021-11-04] MEDS ORDERED: DONE10TA41 PO (13:51)
[2021-11-04] MEDS ORDERED: CHOL10004 PO (13:51)
[2021-11-04] MEDS ORDERED: SERT-414 PO (13:51)
[2021-11-04] MEDS ORDERED: MULT-1136 PO (13:51)
[2021-11-04] MEDS ORDERED: ASPI-1238 PO (13:51)
[2021-11-04 16:00] VITALS: BP 126/71
[2021-11-04 19:13] VITALS: BP 136/77
[2021-11-04 23:54] VITALS: BP 144/82
[2021-11-05 04:00] VITALS: BP 146/85
[2021-11-05] MEDS: inSUlin ASPART (NovoLOG) 1 UNIT/0.01 ML (CHARGE PER UNIT) SC SCH ×2 (05:46→10:16)
[2021-11-05] MEDS: NIRMATRELVIR/RITONAVIR (PAXLOVID) TABLET PO SCH (05:46)
[2021-11-05 06:06] LABS: CALCIUM 8.6 MG/DL (8.5-10.1); CREATININE SERUM 0.74 MG/DL (0.60-1.30); MAGNESIUM 1.4 MG/DL (1.6-2.4); POTASSIUM 4.3 MMOL/L (3.6-5.0)
[2021-11-05] MEDS: POTASSIUM CL 10MEQ/50ML IVPB 50 ML IV SCH (06:23)
[2021-11-05] MEDS: RX-NIRMATRELVIR/RITONAVIR (PAXLOVID) #30 TABS PO SCH (06:24)
[2021-11-05] MEDS: KCL 20 MEQ TAB (K-DUR) PO SCH (06:24)
[2021-11-05] MEDS: MAGNESIUM 1 GM/100 ML IVPB 100 ML IV SCH ×4 (06:24→07:49)
[2021-11-05] MEDS ORDERED: APIX5TAB PO (06:56)
--- NOTE | 2021-11-05 06:57 | D/C HH Face to Face Order ---
D/C Face to Face Orders Reconcile Patient Problems Problems Reviewed?: Yes Instructions for Patient Via [facility], Patient Instructions/FollowUp: PCP 1 week Physician to follow Patient: [facility] Discharge Diet for Home: ADA Diet Patient Problems: COVID debility PE Patient Data-Allergies,Ht & Wt Patient Allergies: Coded Allergies: Influenza Virus Vaccines (Verified Allergy, Unknown, 05/23/09) Uncoded Allergies: FLU SHOT (Allergy, Mild, 05/22/09) Height (Feet): 6 Height (Inches): 2.00 Weight (Pounds): 160 Weight (Ounces): 4.8 Home Health Need/Face to Face Date of Face to Face: Nov 05, 2021 Clinical Findings: Generalized weakness and fatigue, Instability, Muscle weakness I have seen Pt [id number]: Yes Discharged To: Home Diagnosis/Conditions: Debility Patient is Homebound due to: CognItive deficits, Muscle weakness Homebound Status Due to the above stated illness, injury or surgical procedure (medical condition or diagnosis) and associated clinical findings, the patient is homebound because of his/her inability to leave home except with aid of a supportive device and/or person AND leaving the home requires a considerable and taxing effort or is medically contraindicated. Pt req the following assistanc: Walker, Wheelchair Home Health Nursing Orders Home Health Services Order: Nursing Services, Extension Agent-Evaluate & Treat, Physical Therapy-Evaluate & Treat Home Health Infusion Therapy Line Start Date: Oct 31, 2021 Certify Stmt I certify that this patient is under my care and that I, a nurse practitioner or a physician; a anesthesiologist assistant certified working with me, had a face to face encounter that - meets the physician face to face encounter requirements with this patient as dated. TK KERR DO Nov 05, 2021 06:56
--- NOTE | 2021-11-05 06:57 | Discharge Summary ---
Discharge Summary Hospital Course Was the Problem List Reviewed?: Yes Problems/Dx: (1) Dehydration Status: Acute (2) CVA (cerebral vascular accident) (3) COVID-19 virus infection Status: Acute Hospital Course Date of Admission: Nov 03, 2021 at 10:42 Admission Diagnosis : Family Physician/Provider: Lucian Rust MD Date of Discharge: 11/05/21 Discharge Diagnosis: dehydration, COVID, h/o CVA Hospital Course: Patient is a 76 y/o M with history of Type 2 DM, Right sided CVA with Left hemiparesis, HTN, COPD, and dementia was found to be positive for COVID-19 at [facility] 4 days ago. His initial complaints included fatigue and a nonproductive cough for the past week with progressive increase in weakness. Supportive care was initiated for COVID treatment. Additionally, initial CXR showed pulmonary emboli scattered throughout the left lung lobes. Received Apixaban for that. Patient was also evaluated by PT/OT. Today the patient is doing well. He has very few complaints. Denies any fever, chills, chest pain, or shortness of breath at this time. 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 Patient states he has also been eating, drinking well and having BMs with urination. Labs and Pending Lab Test: Laboratory Tests 11/04/21 08:25: Sodium Level 137, Potassium Level 4.2, Chloride Level 107, Carbon Dioxide Level 19L, Anion Gap 11, Blood Urea Nitrogen 10, Creatinine 0.78, Estimat Glomerular Filtration Rate 92, BUN/Creatinine Ratio 13, Glucose Level 204H, Calcium Level 8.5, Corrected Calcium 8.9, Magnesium Level 1.4L, Total Bilirubin 0.7, Aspartate Amino Transf (AST/SGOT) 37H, Alanine Aminotransferase (ALT/SGPT) 31, Alkaline Phosphatase 141H, Total Protein 6.8, Albumin 3.5 11/04/21 09:26: Glucometer 239H 11/04/21 14:03: Glucometer 186H 11/04/21 19:17: Glucometer 180H 11/05/21 05:25: Sodium Level 138, Potassium Level 4.3, Chloride Level 108H, Carbon Dioxide Level 18L, Anion Gap 12, Blood Urea Nitrogen 11, Creatinine 0.74, Estimat Glomerular Filtration Rate 94, BUN/Creatinine Ratio 15, Glucose Level 192H, Calcium Level 8.6, Magnesium Level 1.4L 11/05/21 05:43: Glucometer 205H Microbiology 10/31/21 MRSA Screen - Final, Complete MRSA not isolated 10/31/21 Blood Culture - Preliminary, Resulted No growth 10/31/21 Urine Culture - Final, Complete Staphylococcus epidermidis Home Meds Active Eliquis (Apixaban) 5 Mg Tablet 5 Mg PO BID 2 pills PO BID for 3 days then 1 pill BID Reported Vitamin D3 (Cholecalciferol (Vitamin D3)) 25 Mcg (1000 Unit) Tablet 25 Mcg PO DAILY Multivitamin 1 Each Tablet 1 Each PO DAILY Donepezil HCl 10 Mg Tablet 5 Mg PO DAILY TAKES OF A 10MG TAB Atorvastatin Calcium 40 Mg Tablet 20 Mg PO HS TAKES OF A 40MG TAB Sertraline HCl 100 Mg Tablet 50 Mg PO HS TAKES OF A 100MG TAB Aspirin EC (Aspirin) 81 Mg Tablet.dr 81 Mg PO DAILY Protonix (Pantoprazole Sodium) 40 Mg Tablet.dr 40 Mg PO DAILY Metformin HCl 1,000 Mg Tablet 500 Mg PO DAILY TAKES OF A 1000MG TAB Lisinopril 10 Mg Tablet 2.5 Mg PO DAILY TAKES OF A 10MG TAB Glimepiride 2 Mg Tablet 2 Mg PO DAILY LAST FILLED 04-10-2021 #90/90 DAY SUPPLY Assessment/Pt Instructions PCP in 1 week Discharge Planning: <30 minutes discharge planning Discharge Instructions Discharge Diet: No Restrictions Discharge Physical Examination Vital Signs Vital Signs Date Time Temp Pulse Resp B/P (MAP) Pulse Ox O2 Delivery O2 Flow Rate FiO2 11/05/21 04:00 36.2 61 20 146/85 (105) Room Air 11/04/21 23:54 95 10/31/21 21:01 0 General Appearance: No Apparent Distress, WD/WN, Chronically ill Allergies: Coded Allergies: Influenza Virus Vaccines (Verified Allergy, Unknown, 05/23/09) Uncoded Allergies: FLU SHOT (Allergy, Mild, 05/22/09) Discharge Summary Date of Admission Nov 03, 2021 at 10:42 Date of Discharge Discharge Date: Nov 05, 2021 Admission Diagnosis 1. COVID infection with likely right middle lobe pneumonia. Considering normal white count and normal procalcitonin level viral etiology/COVID is most likely patient met criteria for sepsis but with IV fluids alone blood pressure is responding in an individual who apparently has low normal blood pressure at baseline. His blood pressure declined after his first dose of Paxlovid but there was no change after his second dose. Secondary to his hypotension he was admitted to the intensive care unit as he is doing better we will transfer him to the floor continuing Paxlovid. 2. Considering COVID infection he did have saturations down to 90% but most the time is been running higher than this will obtain a D-dimer level if significantly elevated will proceed with CTA of the lungs. 3. History of type 2 diabetes patient is unclear on his current medications in the process of getting his medication list from family for now sliding-scale insulin but likely resumption of home diabetic medications continue diabetic diet and fingersticks before meals and at bedtime. 4. 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 5. Hypertension reported if he is on any antihypertensive medication will hold Due to hypotension in the emergency room and now low normal blood pressures. Discharge Diagnosis PT OT Supportive care TK KERR DO Nov 05, 2021 06:57
[2021-11-05] MEDS: APIXABAN 5 MG (ELIQUIS) TABLET PO SCH (07:49)
[2021-11-05] MEDS: ASPIRIN 81 MG CHEW (CHILDREN'S ASA) PO SCH (07:49)
[2021-11-05 07:51] VITALS: BP 128/79
[2021-11-05 12:39] VITALS: BP 128/79
--- NOTE | 2021-11-06 14:01 | Physician Query Clarification ---
PQ-Uncertain Diagnosis Admission/Discharge Admission Date: Nov 03, 2021 at 10:42 Discharge Date: Nov 05, 2021 at 12:41 Dr. Sommer, The medical record reflects the following clinical scenario: History/Risk Factors: Covid pneumonia, PE Clinical Findings: Lactic acid 2.53, T 38.1, P 97, r 18 Treatment: Paxlovid, IVF Question: Is sepsis a clinically valid diagnosis? Sepsis was documented in the H&P with no further documentation in the medical record. Please document a response in Progress Note or Discharge Summary. 1. Yes, clinically valid, condition resolved. 2. No, condition ruled out. 3. Other, with explanation of clinical findings. 4. Undetermined, no explanation for clinical findings. PHYSICIAN RESPONSE Diagnosis clinically valid: Yes, Conditon resolved In responding to this query, please exercise your independent professional judgment. The purpose of this communication is to more accurately reflect the complexity of your patients condition. The fact that a question is asked does not imply that any particular answer is desired or expected. Thank you for your timely response to this clarification. Requestors name: Elaina THIS PHYSICIAN QUERY FORM IS A PERMANENT PART OF THE MEDICAL RECORD ELAINA BOYLE Nov 06, 2021 14:01 TK SOMMER DO Nov 06, 2021 18:19
[2021-11-08] MEDS ORDERED: APIXABAN 5 MG (ELIQUIS) TABLET PO SCH (09:00)
== END 2021-11-05 12:41 | disposition home health service (06) | DRG 871 ==
LOC: EDUNIT# 16:58 → ER 16:59 → 4TH 19:13 → ICU 21:05 → 4TH 11-01 11:07 → OBSVTOIN 11-03 10:42
PROVIDERS: ADMIT Internal Medicine; ATTEND Internal Medicine
DX: A41.89 Other specified sepsis (principal); U07.1 COVID-19; I26.99 Other pulmonary embolism without acute cor pulmonale; J12.82 Pneumonia due to coronavirus disease 2019; I69.354 Hemiplegia and hemiparesis following cerebral infarction affecting left non-dominant side; E86.0 Dehydration; R32 Unspecified urinary incontinence; I95.9 Hypotension, unspecified; I10 Essential (primary) hypertension; E11.9 Type 2 diabetes mellitus without complications; Z66 Do not resuscitate; F03.90 Unspecified dementia, unspecified severity, without behavioral disturbance, psychotic disturbance, mood disturbance, and anxiety; K21.9 Gastro-esophageal reflux disease without esophagitis; E78.5 Hyperlipidemia, unspecified; H54.7 Unspecified visual loss; H91.90 Unspecified hearing loss, unspecified ear; Z87.891 Personal history of nicotine dependence; Z88.7 Allergy status to serum and vaccine; Z79.84 Long term (current) use of oral hypoglycemic drugs; Z79.82 Long term (current) use of aspirin; Z73.0 Burn-out
CPT/HCPCS: 36415; 51701; 71045; 71275; 80048; 80053; 81000; 82947; 83605; 83735; 84100; 84145; 85007; 85025; 85027; 85379; 85610; 85730; 86141; 87040; 87077; 87081; 87088; 87186; G0378

== ENCOUNTER → 2022-05-25 | Outpatient (CLI) | payer MEDICARE, OTHER ==
[~2022-05-25] MED LIST changes: +APIX5TAB PO; +ASPI-1238 PO; +ASPI-999 PO; +ATOR20TA66 PO; +ATOR40TA70 PO; +CHOL10004 PO; +DONE10TA41 PO; +DONE5TAB30 PO; +LISI2.5T13 PO; +MULT-1136 PO; +PANT40TA2 PO; +SERT-413 PO; +SERT-414 PO
== END ==
LOC: WOUNDCARE 09:13
PROVIDERS: ATTEND Family Medicine
DX: L89.312 Pressure ulcer of right buttock, stage 2 (principal); L89.322 Pressure ulcer of left buttock, stage 2; L24.A2 Irritant contact dermatitis due to fecal, urinary or dual incontinence; G81.04 Flaccid hemiplegia affecting left nondominant side; M62.3 Immobility syndrome (paraplegic); E11.622 Type 2 diabetes mellitus with other skin ulcer; E11.65 Type 2 diabetes mellitus with hyperglycemia; N39.498 Other specified urinary incontinence; L03.317 Cellulitis of buttock; B37.2 Candidiasis of skin and nail
CPT/HCPCS: 99214

== ENCOUNTER → 2022-06-01 | Outpatient (CLI) | payer MEDICARE, OTHER | LOC: WOUNDCARE 09:49 | PROVIDERS: ATTEND Family Medicine | DX: L89.312 Pressure ulcer of right buttock, stage 2 (principal); L89.322 Pressure ulcer of left buttock, stage 2; L24.A2 Irritant contact dermatitis due to fecal, urinary or dual incontinence; G81.04 Flaccid hemiplegia affecting left nondominant side; M62.3 Immobility syndrome (paraplegic); E11.622 Type 2 diabetes mellitus with other skin ulcer; E11.65 Type 2 diabetes mellitus with hyperglycemia; N39.498 Other specified urinary incontinence; L03.317 Cellulitis of buttock; B37.2 Candidiasis of skin and nail | CPT/HCPCS: 99212 ==

== ENCOUNTER 2022-10-22 09:06 | Inpatient (IN) | payer MEDICARE, OTHER ==
[2022-10-22] VITALS (14 sets, daily range): BP systolic 91–112; BP diastolic 64–73
[~2022-10-22] VITALS: Ht 188 cm; Wt 87.1 kg
[2022-10-22] MEDS ORDERED: NS IV 1000 ML 1,000 ML IV STA (09:27)
[2022-10-22 09:40] LABS: BASOPHILS % (AUTO) 0 % (0-10); EOSINOPHILS % (AUTO) 0 % (0-10); HEMATOCRIT 41 % (40-54); HEMOGLOBIN 13.7 g/dL (13.3-17.7); LYMPHOCYTES # (AUTO) 0.2 10^3/uL (1.0-4.0); LYMPHOCYTES % (AUTO) 2 % (12-44); MEAN CORPUSCULAR HEMOGLOBIN 29 pg (25-34); MEAN CORPUSCULAR HGB CONC 33 g/dL (32-36); MEAN CORPUSCULAR VOLUME 87 fL (80-99); MEAN PLATELET VOLUME 10.1 fL (9.0-12.2); MONOCYTES # (AUTO) 0.6 10^3/uL (0.0-1.0); MONOCYTES % (AUTO) 6 % (0-12); NEUTROPHILS # (AUTO) 10.2 10^3/uL (1.8-7.8); NEUTROPHILS % (AUTO) 91 % (42-75); PLATELET COUNT 193 10^3/uL (130-400); WHITE BLOOD COUNT 11.2 10^3/uL (4.3-11.0)
[2022-10-22 09:49] LABS: ALBUMIN 3.6 GM/DL (3.2-4.5)
[2022-10-22 09:51] LABS: CALCIUM 8.3 MG/DL (8.5-10.1)
[2022-10-22 09:54] LABS: BILIRUBIN,TOTAL 1.4 MG/DL (0.1-1.0)
[2022-10-22 09:56] LABS: CREATININE SERUM 0.98 MG/DL (0.60-1.30)
[2022-10-22 09:57] LABS: BAND NEUTROPHILS 3 %; LYMPHOCYTES % (MANUAL) 3 %; MONOCYTES % (MANUAL) 8 %; NEUTROPHILS % (MANUAL) 86 %; RBC MORPH NORMAL
--- NOTE | 2022-10-22 10:01 | ED General ---
General Chief Complaint: General Problems/Pain Stated Complaint: WEAKNESS Nursing Triage Note: PT TO [facility] BY [facility] WITH C/O WEAKNESS X3 DAYS, NAUSEA AND POSSIBLE UTI. 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 Sent here by home health per EMS. They did initiate IV and initiated a 1 L bolus of fluid which is running. They have sent UA but that has not resulted yet so they are not sure. EMS noted fever and this was verified here. Patient admits to weakness but denies cough or chest pain. Denies nausea, vomiting or diarrhea. Does have sore throat and runny nose. Report by EMS indicates that he did have home COVID test that was negative. Patient is a poor historian and other than weakness denies any significant complaints. He does not believe he has any medical problems but he does have home health. Timing/Duration: 3-4 Days Severity: Moderate Associated Systoms: No Chest Pain, No Cough; Fever/Chills; No Nausea/Vomiting, No Shortness of Air; Weakness Allergies and Home Medications Allergies Coded Allergies: Influenza Virus Vaccines (Verified Allergy, Unknown, 05/23/09) Uncoded Allergies: FLU SHOT (Allergy, Mild, 05/22/09) Patient Home Medication List Home Medication List Reviewed: Yes Apixaban (Eliquis) 5 Mg Tablet, 5 MG PO BID Prescribed by: TK KERR on 11/05/21 0656 Aspirin (Aspirin EC) 81 Mg Tablet.dr, 81 MG PO DAILY, (Reported) Entered as Reported by: YARELIS SEAY on 11/04/21 1351 Atorvastatin Calcium (Atorvastatin Calcium) 40 Mg Tablet, 20 MG PO HS, (Reported) Entered as Reported by: YARELIS SEAY on 11/04/21 1351 Cholecalciferol (Vitamin D3) (Vitamin D3) 25 Mcg (1000 Unit) Tablet, 25 MCG PO DAILY, (Reported) Entered as Reported by: YARELIS SEAY on 11/04/21 1351 Donepezil HCl (Donepezil HCl) 10 Mg Tablet, 5 MG PO DAILY, (Reported) Entered as Reported by: YARELIS SEAY on 11/04/21 1351 Glimepiride (Glimepiride) 2 Mg Tablet, 2 MG PO DAILY, (Reported) Entered as Reported by: LUIS EDUARDO ZHANG on 03/09/17 1125 Lisinopril (Lisinopril) 10 Mg Tablet, 2.5 MG PO DAILY, (Reported) Entered as Reported by: LUIS EDUARDO ZHANG on 03/09/17 1125 Metformin HCl (Metformin HCl) 1,000 Mg Tablet, 500 MG PO DAILY, (Reported) Entered as Reported by: LUIS EDUARDO ZHANG on 03/09/17 1125 Multivitamin (Multivitamin) 1 Each Tablet, 1 EACH PO DAILY, (Reported) Entered as Reported by: YARELIS SEAY on 11/04/21 1351 Pantoprazole Sodium (Protonix) 40 Mg Tablet.dr, 40 MG PO DAILY, (Reported) Entered as Reported by: LIT MIRANDA on 11/01/21 1012 Sertraline HCl (Sertraline HCl) 100 Mg Tablet, 50 MG PO HS, (Reported) Entered as Reported by: YARELIS SEAY on 11/04/21 1351 Review of Systems Review of Systems Constitutional: see HPI, fever, weakness EENTM: nose congestion, throat pain Respiratory: No cough, No short of breath Cardiovascular: No chest pain Gastrointestinal: No abdominal pain, No diarrhea, No nausea, No vomiting Genitourinary: see HPI Musculoskeletal: No back pain, No muscle pain Psychiatric/Neurological: Weakness Past Dcnojtl-Kvvfqv-Kfovky Hx Patient Social History Tobacco Use?: No Smoking Status: Former Smoker Substance use?: No Alcohol Use?: No Pt feels they are or have been: No Immunizations Up To Date Tetanus Booster (TDap): Unknown PED Vaccines UTD: Yes First/Initial COVID19 Vaccinat: 2020 Second COVID19 Vaccination Ji: 2020 Third COVID19 Vaccination Date: 2020 Seasonal Allergies Seasonal Allergies: No Past Medical History Surgery/Hospitalization HX: stroke, dm, htn Surgeries: Yes ( HEMORRHOIDS, Prostate biopsy related to BPH) Respiratory: No Cardiac: Yes (-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) Neurological: Yes (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) Stroke Reproductive Disorders: No Genitourinary: No Gastrointestinal: Yes Gastroesophageal Reflux, Hemorrhoids Musculoskeletal: Yes (indicates cervical narrowing) Endocrine: Yes Diabetes, Non-Insulin dep HEENT: Yes (blurred vision-has hearingaides-does not wear) Loss of Vision: Bilateral Hearing Impairment: Hard of Hearing Cancer: No Psychosocial: No Integumentary: No Blood Disorders: No Family Medical History Reviewed Nursing Family Hx No Pertinent Family Hx Physical Exam-Suspected Sepsis Physical Exam Vital Signs Vital Signs - First Documented 10/22/22 10/22/22 09:10 12:29 Temp 37.7 Pulse 110 Resp 20 B/P (MAP) 138/82 (100) Pulse Ox 93 O2 Delivery Room Air Capillary Refill : Blood Pressure Mean: 100 Height, Weight, BMI Height: 6'2.00" Weight: 160lbs. 4.8oz. 72.617602fp; 24.49 BMI Method:Stated General Appearance: WD/WN, Other (Appearing) HEENT: PERRL/EOMI, Pharynx Normal Neck: Non Tender, Supple Respiratory: Lungs Clear, Normal Breath Sounds Cardiovascular: No Murmur, Tachycardia Gastrointestinal: Non Tender, Soft Back: Normal Inspection, No CVA Tenderness, No Vertebral Tenderness Extremity: Normal Range of Motion, Non Tender Neurologic/Psychiatric: Alert, No Motor/Sensory Deficits Skin: normal color, warm/dry Focused Exam Lactate Level 10/22/22 09:25: Lactic Acid Level 3.03*H 10/22/22 11:47: Lactic Acid Level 1.21 Lactic Acid Level Progress/Results/Core Measures Suspected Sepsis SIRS Temperature: Pulse: 110 Respiratory Rate: 20 Laboratory Tests 10/22/22 09:25: White Blood Count 11.2H Blood Pressure 138 /82 Mean: 100 10/22/22 09:25: Lactic Acid Level 3.03*H 10/22/22 11:47: Lactic Acid Level 1.21 Laboratory Tests 10/22/22 09:25: Creatinine 0.98, INR Comment 1.6H, Platelet Count 193, Total Bilirubin 1.4H Results/Orders Lab Results Laboratory Tests Test 10/22/22 09:25 10/22/22 09:30 10/22/22 10:39 10/22/22 11:47 Range/Units White Blood Count 11.2 H 4.3-11.0 10^3/uL Red Blood Count 4.69 4.30-5.52 10^6/uL Hemoglobin 13.7 13.3-17.7 g/dL Hematocrit 41 40-54 % Mean Corpuscular Volume 87 80-99 fL Mean Corpuscular Hemoglobin 29 25-34 pg Mean Corpuscular Hemoglobin Concent 33 32-36 g/dL Red Cell Distribution Width 13.6 10.0-14.5 % Platelet Count 193 130-400 10^3/uL Mean Platelet Volume 10.1 9.0-12.2 fL Immature Granulocyte % (Auto) 1 % Neutrophils (%) (Auto) 91 H 42-75 % Lymphocytes (%) (Auto) 2 L 12-44 % Monocytes (%) (Auto) 6 0-12 % Eosinophils (%) (Auto) 0 0-10 % Basophils (%) (Auto) 0 0-10 % Neutrophils # (Auto) 10.2 H 1.8-7.8 10^3/uL Lymphocytes # (Auto) 0.2 L 1.0-4.0 10^3/uL Monocytes # (Auto) 0.6 0.0-1.0 10^3/uL Eosinophils # (Auto) 0.0 0.0-0.3 10^3/uL Basophils # (Auto) 0.0 0.0-0.1 10^3/uL Immature Granulocyte # (Auto) 0.1 0.0-0.1 10^3/uL Neutrophils % (Manual) 86 % Lymphocytes % (Manual) 3 % Monocytes % (Manual) 8 % Band Neutrophils 3 % Blood Morphology Comment NORMAL Prothrombin Time 18.7 H 12.2-14.7 SEC INR Comment 1.6 H 0.8-1.4 Activated Partial Thromboplast Time 28 24-35 SEC Sodium Level 131 L 135-145 MMOL/L Potassium Level 4.0 3.6-5.0 MMOL/L Chloride Level 99 98-107 MMOL/L Carbon Dioxide Level 16 L 21-32 MMOL/L Anion Gap 16 H 5-14 MMOL/L Blood Urea Nitrogen 19 H 7-18 MG/DL Creatinine 0.98 0.60-1.30 MG/DL Estimat Glomerular Filtration Rate 79 BUN/Creatinine Ratio 19 Glucose Level 367 H 70-105 MG/DL Lactic Acid Level 3.03 *H 1.21 0.50-2.00 MMOL/L Calcium Level 8.3 L 8.5-10.1 MG/DL Corrected Calcium 8.6 8.5-10.1 MG/DL Total Bilirubin 1.4 H 0.1-1.0 MG/DL Aspartate Amino Transf (AST/SGOT) 16 5-34 U/L Alanine Aminotransferase (ALT/SGPT) 16 0-55 U/L Alkaline Phosphatase 165 H 40-136 U/L Total Protein 7.0 6.4-8.2 GM/DL Albumin 3.6 3.2-4.5 GM/DL Influenza Type A (RT-PCR) Not Detected Not Detecte Influenza Type B (RT-PCR) Not Detected Not Detecte SARS-CoV-2 RNA (RT-PCR) Not Detected Not Detecte Urine Color YELLOW Urine Clarity CLOUDY Urine pH 5.0 5-9 Urine Specific [place] 1.015 L 1.016-1.022 Urine Protein 2+ H NEGATIVE Urine Glucose (UA) 3+ H NEGATIVE Urine Ketones 3+ H NEGATIVE Urine Nitrite NEGATIVE NEGATIVE Urine Bilirubin 1+ H NEGATIVE Urine Urobilinogen 0.2 < = 1.0 MG/DL Urine Leukocyte Esterase 1+ H NEGATIVE Urine RBC (Auto) 3+ H NEGATIVE Urine RBC 5-10 H /HPF Urine WBC 25-50 H /HPF Urine Crystals PRESENT H /LPF Urine Amorphous Sediment MOD ORESTES URATES H /LPF Urine Bacteria LARGE H /HPF Urine Casts NONE /LPF Urine Mucus NEGATIVE /LPF Urine Culture Indicated CULTURE PENDING My Orders Orders - NESS BEYER MD Cbc With Automated Diff (10/22/22:) Comprehensive Metabolic Panel (10/22/22:) Blood Culture (10/22/22 09:) Sputum Culture (10/22/22:) Urinalysis (10/22/22:) Urine Culture (10/22/22:) Protime With Inr (10/22/22:) Partial Thromboplastin Time (10/22/22:27) Chest 1 View, Ap/Pa Only (10/22/22:) Vital Signs Adult Sepsis Patie Q15M (10/22/22:27) O2 (10/22/22:27) Remove Rings In Anticipation O (10/22/22:) Lactic Acid Analyzer (10/22/22 09:) Influenza A And B By Pcr (10/22/22:) Covid 19 Inhouse Test (10/22/22 09:27) Ns Iv 1000 Ml (Ns Iv 1000 Ml) (10/22/22 09:27) Manual Differential (10/22/22 09:25) Code/Resuscitation (10/22/22 11:35) Acetaminophen Tablet (Acetaminophen Ta (10/22/22 11:35) Ceftriaxone Iv/Im (Ceftriaxone Iv/Im) (10/22/22 11:42) Vancomycin Injection (Vancomycin Injecti (10/22/22 11:45) Ed Admission (Communication) (10/22/22 11:52) Medications Given in ED Current Medications Medications Dose Ordered Sig/Estefanía Route Start Time Stop Time Status Last Admin Dose Admin Vancomycin HCl 1000 mg/Sodium Chloride 250 ml @ 250 mls/hr ONCE ONCE IV 10/22/22 11:45 10/22/22 12:44 DC 10/22/22 12:27 250 MLS/HR Vital Signs/I&O 10/22/22 10/22/22 10/22/22 10/22/22 09:10 12:29 12:40 12:45 Temp 37.7 37.7 Pulse 110 95 96 Resp 20 17 26 B/P (MAP) 138/82 (100) 102/72 97/66 (76) Pulse Ox 93 95 96 O2 Delivery Room Air Room Air Room Air Room Air 10/22/22 10/22/22 10/22/22 10/22/22 13:00 13:03 13:15 13:22 Temp 37.7 Pulse 98 95 96 93 Resp 26 32 B/P (MAP) 92/64 (73) 96/66 (76) Pulse Ox 96 93 94 O2 Delivery Room Air Room Air 10/22/22 10/22/22 10/22/22 10/22/22 13:30 13:45 14:00 14:00 Temp 35.8 Pulse 93 92 87 Resp 19 21 21 B/P (MAP) 95/67 (76) 101/68 (79) 97/69 (78) Pulse Ox 95 95 94 O2 Delivery Room Air Room Air Room Air 10/22/22 10/22/22 10/22/22 10/22/22 14:11 14:15 14:30 14:45 Temp 35.8 Pulse 80 80 80 Resp 18 23 23 B/P (MAP) 91/70 (77) 97/68 (78) 99/67 (78) Pulse Ox 95 95 95 O2 Delivery Room Air Room Air Room Air 10/22/22 10/22/22 15:00 15:17 Temp 36.3 Pulse 78 86 Resp 19 20 B/P (MAP) 97/65 (76) 105/68 (80) Pulse Ox 95 95 O2 Delivery Room Air Room Air Capillary Refill : Blood Pressure Mean: 100 Progress Note : Progress Note Seen and evaluated. He sepsis protocol initiated. We will continue normal saline 1 L bolus started by EMS and consider second 1 L bolus that I have ordered. Septic work-up includes CBC, CMP, blood cultures, lactic acid, coags, UA with culture and chest x-ray. Patient is on Eliquis so his coags will likely be reflective of that. He is diabetic and blood sugar noted to be 380s. We will check for COVID and influenza. Monitor patient. Differential diagnosis includes COVID, influenza, UTI, pneumonia, electrolyte abnormality, dehydration 1055: Chest x-ray reviewed by me and shows no obvious infiltrate on my interpretation. See radiology report for details. COVID and influenza are negative. CBC shows slightly elevated white count but otherwise nonconcerning. CMP reviewed and he does have some electrolyte disturbances that are mild and elevated blood sugar noted. Slight elevation of alk phos noted. Lactic acid is elevated at greater than 3. We are pending UA now and we were finally able to get that via straight cath. The 1 L bolus ordered is running now for his second liter of fluid. His daughter is at bedside and I did talk with her about current results and findings. She reports that he has been incontinent of urine and he is not typically that way and that the urine is foul-smelling. She reports that he was vomiting this morning so she was unable to give him his medicines. This will make outpatient treatment for UTI difficult given the vomiting and weakness. If patient does have urinary tract infection then we will consider admission and this was discussed with the daughter as well. Monitor patient. 1135: UA is positive with large number of whites and bacteria on straight cath UA. I do believe this is the cause of the fever and sepsis findings including elevated lactic acid. He feels better after fluid. He is not hypotensive and O2 sats remained at 93% with blood pressure of 106/72 and heart rate of 97. Patient will require admission for continued care and IV antibiotics. We will initiate Rocephin and vancomycin given his history of resistant Staph epidermidis in the urine. Pending callback from Dr. Kerr who I have paged.: I did discuss the case with Dr. Kerr, on-call for [facility] service. She accepts patient for admission, inpatient status. She request cardiac stepdown unit and agrees with Rocephin and vancomycin treatment. The concerns discussed with the patient and family who agree. He does request DNR. Diagnostic Imaging Diagonstic Imaging: Xray Plain Films/CT/US/NM/MRI: chest Comments [facility]. [place], [place] NAME: PORFIRIO BROOKS [facility] REC#: [id number] PT STATUS: REG ER : 1945 PHYSICIAN: NESS BEYER MD ADMIT DATE: 10/22/22/ER Draft Date of Exam:10/22/22 CHEST 1 VIEW, AP/PA ONLY EXAMINATION: Chest radiograph, portable AP view. DATE: 10/22/2022 10:25 AM INDICATION: 77-year-old male, weakness and fever. COMPARISON: October 31, 2021. FINDINGS: Heart size and mediastinal contours are unchanged. There is no identified pneumothorax. There is no large pleural effusion. There is no identified focal airspace consolidation. IMPRESSION: 1. No identified acute cardiopulmonary abnormality. Dictated on workstation # [id number] Dict: 10/22/22 1026 Trans: 10/22/22 1030 CVB [id number] Interpreted by: LILY CASANOVA MD Electronically signed by: Departure Communication (Admissions) Time/Spoke to Admitting Phy: 11:42 Impression Primary Impression: Sepsis Qualified Codes: A41.9 - Sepsis, unspecified organism Additional Impression: UTI (urinary tract infection) Qualified Codes: N30.00 - Acute cystitis without hematuria Disposition: ADMITTED INPATIENT Condition: Stable Admissions Decision to Admit Reason: Admit from ER (General) Decision to Admit/Date: Oct 22, 2022 Time/Decision to Admit Time: 11:42 Departure-Patient Inst. Referrals: BONNY ABDALLA MD (PCP/Family) Primary Care Physician NESS BEYER MD Oct 22, 2022 10:01
[2022-10-22 10:04] LABS: INR 1.6 (0.8-1.4); PROTHROMBIN TIME PATIENT 18.7 SEC (12.2-14.7)
--- NOTE | 2022-10-22 10:39 | Diagnostic Imaging Report ---
EXAMINATION: Chest radiograph, portable AP view. DATE: 10/22/2022 10:25 AM INDICATION: 77-year-old male, weakness and fever. COMPARISON: October 31, 2021. FINDINGS: Heart size and mediastinal contours are unchanged. There is no identified pneumothorax. There is no large pleural effusion. There is no identified focal airspace consolidation. IMPRESSION: 1. No identified acute cardiopulmonary abnormality. Dictated by: Dictated on workstation # [id number]
[2022-10-22 11:07] LABS: CLARITY,URINE CLOUDY; COLOR,URINE YELLOW; GLUCOSE, URINE (UA) 3+ (NEGATIVE); KETONES,URINE 3+ (NEGATIVE); NITRITE,URINE NEGATIVE (NEGATIVE); PROTEIN,URINE 2+ (NEGATIVE)
[2022-10-22 11:08] LABS: AMORPHOUS SEDIMENT,UR MOD AMOR URATES /LPF; BACTERIA,URINE LARGE /HPF; BILIRUBIN,URINE 1+ (NEGATIVE); LEUKOCYTE ESTERASE ,URINE 1+ (NEGATIVE); WBC,URINE 25-50 /HPF
[2022-10-22] MEDS ORDERED: ACETAMINOPHEN 500 MG TABLET PO STA (11:35)
[2022-10-22] MEDS ORDERED: cefTRIAXone IV/IM 1,000 MG in NS (IVPB) 50 ML 50 ML IV STA (11:42)
[2022-10-22] MEDS ORDERED: VANCOMYCIN INJECTION 1,000 MG in NS (IVPB) 250 ML 250 ML IV ONE (11:45)
--- NOTE | 2022-10-22 12:57 | History & Physical ---
History of Present Illness HPI/Chief Complaint Chief complaint: Sepsis from UTI HPI: This is a 77-year-old male clinic patient of [facility] who is very debilitated on a chronic basis and wheelchair-bound cared for by daughter and son who has a history of UTIs who presented to the ER with weakness and fever found to have a UTI. History of Staph epidermidis on urine culture in the past so placed on Rocephin and vancomycin. He is a very poor historian so trying to get more details to fill out information for this dictation.He tells the nurse he has not been taking most of his medications for several days. Source: patient, family, RN/MD, old records Date Seen 10/22/22 Time Seen by a Provider: 12:00 Attending Physician Lucian Rust MD PCP Admitting Physician: Shelia Sommer DO Attending Physician: Shelia Sommer DO Referring Physician Date of Admission Oct 22, 2022 at 12:24 Home Medications & Allergies Home Medications Reviewed patient Home Medication Reconciliation performed by pharmacy medication reconciliations telecommunications technician and/or nursing. Patients Allergies have been reviewed. Allergies Allergies Coded Allergies Influenza Virus Vaccines (Verified Allergy, Unknown, 05/23/09) Uncoded Allergies FLU SHOT ( Allergy, Mild, 05/22/09) Past Zthdygr-Lklflh-Nfmpvy Hx Past Med/Social Hx: Reviewed Nursing Past Med/Soc Hx, Reviewed and Corrections made Patient Social History Marrital Status: single Employed/Student: retired Alcohol Use: Denies Use Smoking Status: Former Smoker Former Smoker, Quit: Mar 04, 2017 Type Used: Cigarettes Recent Hopitalizations: Yes (VEIN STRIPPING HEMORRHOIDS) Immunizations Up To Date Tetanus Booster (TDap): Unknown Pediatric: Yes Date of Pneumonia Vaccine: Apr 05, 2016 Seasonal Allergies Seasonal Allergies: No Past Medical History Cardiac: High Cholesterol, Hypertension Neurological: Stroke Reproductive: No Gastrointestinal: Gastroesophageal Reflux, Hemorrhoids Endocrine: Diabetes, Non-Insulin dep Loss of Vision: Bilateral Hearing Impairment: Hard of Hearing Psychosocial: Depression History of Blood Disorders: No Family History Reviewed Nursing Family Hx No Pertinent Family Hx Review of Systems Constitutional: see HPI, dizziness, malaise, weakness EENTM: no symptoms reported Respiratory: no symptoms reported Cardiovascular: no symptoms reported Gastrointestinal: no symptoms reported Genitourinary: no symptoms reported Musculoskeletal: back pain Skin: no symptoms reported Psychiatric/Neurological: No Symptoms Reported All Other Systems Reviewed Negative Unless Noted: Yes Physical Exam Physical Exam Vital Signs Vital Signs - First Documented 10/22/22 10/22/22 09:10 12:29 Temp 37.7 Pulse 110 Resp 20 B/P (MAP) 138/82 (100) Pulse Ox 93 O2 Delivery Room Air Capillary Refill : Height, Weight, BMI Height: 6'2.00" Weight: 160lbs. 4.8oz. 72.307701bm; 24.49 BMI Method:Stated General Appearance: WD/WN, Chronically ill, Other (Appearing) HEENT: PERRL/EOMI, Pharynx Normal Neck: Full Range of Motion, Non Tender, Supple Respiratory: Lungs Clear, Normal Breath Sounds Cardiovascular: No Murmur, Tachycardia Gastrointestinal: Non Tender, Soft Back: Normal Inspection, No CVA Tenderness, No Vertebral Tenderness Extremity: Normal Range of Motion, Non Tender Neurologic/Psychiatric: Alert, No Motor/Sensory Deficits Results Results/Procedures Labs Laboratory Tests 10/22/22 09:25 Patient resulted labs reviewed. Assessment/Plan Admission Diagnosis Assessment: Sepsis UTI Hypertension Hyperlipidemia Diabetes [id number] Noncompliance with meds Wheelchair-bound Cardiac arrhythmia on oral anticoagulation? Plan: IV antibiotics Monitor labs Rocephin and vancomycin Admission Status: Inpatient Order (span 2 midnights) Reason for Inpatient Admission: Sepsis Diagnosis/Problems Diagnosis/Problems (1) Sepsis Qualifiers: Sepsis type: sepsis due to unspecified organism Sepsis acute organ dysfunction status: unspecified Qualified Codes: A41.9 - Sepsis, unspecified organism (2) UTI (urinary tract infection) Qualifiers: Urinary tract infection type: acute cystitis Hematuria presence: without hematuria Qualified Codes: N30.00 - Acute cystitis without hematuria SHELIA SOMMER DO Oct 22, 2022 12:56
[2022-10-22] MEDS ORDERED: diphenhydrAMINE 25 MG TABLET PO PRN (13:00)
[2022-10-22] MEDS ORDERED: ONDANSETRON INJECTION 4 MG/2 ML (SDV) IV PRN (13:00)
[2022-10-22] MEDS ORDERED: MELATONIN 3 MG TABLET PO PRN (13:00)
[2022-10-22] MEDS ORDERED: HYDROmorphone INJECTION 2 MG/ML VIAL IV PRN (13:00)
[2022-10-22] MEDS ORDERED: ANTACID SUSPENSION 30 ML UDC PO PRN (13:00)
[2022-10-22] MEDS ORDERED: LACTULOSE SYRUP 10GM/15ML 30ML UDC PO PRN (13:00)
[2022-10-22] MEDS ORDERED: oxyCODONE IMMEDIATE RELEASE 5 MG TABLET PO PRN (13:00)
[2022-10-22] MEDS ORDERED: VANCOMYCIN INJECTION 0.1 MG in NS (IVPB) 250 ML 250 ML IV SCH (13:00)
[2022-10-22] MEDS ORDERED: CALCIUM CARBONATE 500 MG CHEW TABLET PO PRN (13:00)
[2022-10-22] MEDS ORDERED: ONDANSETRON 4 MG ORAL DISSOLVE TABLET PO PRN (13:00)
[2022-10-22] MEDS ORDERED: MILK OF MAGNESIA 400 MG/5 ML 30 ML UDC PO PRN (13:00)
[2022-10-22] MEDS ORDERED: ACETAMINOPHEN 325 MG TABLET PO PRN (13:00)
[2022-10-22] MEDS ORDERED: diphenhydrAMINE INJ 50 MG/ML VIAL IVP PRN (13:00)
[2022-10-22] MEDS ORDERED: NALOXONE 0.4 MG/ML 1 ML VIAL IV PRN (13:00)
[2022-10-22] MEDS ORDERED: LORazepam 0.5 MG TABLET PO PRN (13:00)
[2022-10-22] MEDS ORDERED: BISACODYL 10 MG SUPPOSITORY PR PRN (13:00)
[2022-10-22] MEDS ORDERED: RT-Ipratropium/Albuterol NEB 3 ML VIAL INH PRN (13:15)
[2022-10-22] MEDS ORDERED: VANCOMYCIN 500 MG/NS 100 ML IV NR ×2 (13:30)
[2022-10-22] MEDS: NS IV 1000 ML 1,000 ML IV SCH ×3 (13:58→22:23)
[2022-10-22] MEDS: inSUlin (REGULAR) HUMAN 1 UNIT/0.01 ML (CHARGE PER UNIT) SC SCH (16:58)
[2022-10-22] MEDS: inSUlin ASPART 1 UNIT/0.01 ML (PER UNIT) SC SCH ×2 (16:58→21:14)
[2022-10-22] MEDS: DOCUSATE SODIUM 100 MG CAPSULE PO SCH (21:13)
[2022-10-22] MEDS: APIXABAN 5 MG TABLET PO SCH (21:14)
[2022-10-22] MEDS: SENNOSIDES 8.6 MG TABLET PO SCH (21:14)
[2022-10-23] VITALS (7 sets, daily range): BP systolic 102–132; BP diastolic 62–74
[2022-10-23] MEDS ORDERED: VANCOMYCIN 1 GM/NS 250 ML IVPB IV SCH ×2 (01:00)
[2022-10-23 05:35] LABS: BASOPHILS % (AUTO) 0 % (0-10); EOSINOPHILS % (AUTO) 0 % (0-10); HEMATOCRIT 34 % (40-54); HEMOGLOBIN 11.3 g/dL (13.3-17.7); LYMPHOCYTES # (AUTO) 0.5 10^3/uL (1.0-4.0); LYMPHOCYTES % (AUTO) 6 % (12-44); MEAN CORPUSCULAR HEMOGLOBIN 29 pg (25-34); MEAN CORPUSCULAR HGB CONC 33 g/dL (32-36); MEAN CORPUSCULAR VOLUME 88 fL (80-99); MEAN PLATELET VOLUME 10.5 fL (9.0-12.2); MONOCYTES # (AUTO) 0.8 10^3/uL (0.0-1.0); MONOCYTES % (AUTO) 10 % (0-12); NEUTROPHILS % (AUTO) 82 % (42-75); PLATELET COUNT 177 10^3/uL (130-400); WHITE BLOOD COUNT 7.3 10^3/uL (4.3-11.0)
[2022-10-23 05:51] LABS: ALBUMIN 2.9 GM/DL (3.2-4.5); POTASSIUM 3.8 MMOL/L (3.6-5.0)
[2022-10-23 05:53] LABS: CALCIUM 7.5 MG/DL (8.5-10.1)
[2022-10-23 05:54] LABS: TOTAL PROTEIN 5.5 GM/DL (6.4-8.2)
[2022-10-23 05:56] LABS: BILIRUBIN,TOTAL 0.8 MG/DL (0.1-1.0)
[2022-10-23 05:57] LABS: CREATININE SERUM 0.82 MG/DL (0.60-1.30)
[2022-10-23] MEDS: inSUlin ASPART 1 UNIT/0.01 ML (PER UNIT) SC SCH ×5 (06:37→21:12)
[2022-10-23] MEDS: inSUlin (REGULAR) HUMAN 1 UNIT/0.01 ML (CHARGE PER UNIT) SC SCH ×2 (06:38→12:26)
[2022-10-23] MEDS: APIXABAN 5 MG TABLET PO SCH ×2 (08:01→21:11)
[2022-10-23] MEDS: DOCUSATE SODIUM 100 MG CAPSULE PO SCH ×2 (08:03→21:12)
[2022-10-23] MEDS: SENNOSIDES 8.6 MG TABLET PO SCH ×2 (08:03→21:12)
[2022-10-23] MEDS ORDERED: LISI5TAB20 PO (10:56)
[2022-10-23] MEDS ORDERED: APIX5TAB PO (10:56)
[2022-10-23] MEDS ORDERED: METF-397 PO (10:56)
[2022-10-23] MEDS: cefTRIAXone IV/IM 1,000 MG in NS (IVPB) 50 ML 50 ML IV SCH (12:27)
--- NOTE | 2022-10-23 12:50 | Progress Note - Hospitalist ---
SELINKEN 10/23/22 1250: Subjective HPI/CC On Admission Date Seen by Provider: Oct 23, 2022 Time Seen by Provider: 11:30 Chief complaint: Sepsis from UTI HPI: This is a 77-year-old male clinic patient of [facility] who is very debilitated on a chronic basis and wheelchair-bound cared for by daughter and son who has a history of UTIs who presented to the ER with weakness and fever found to have a UTI. History of Staph epidermidis on urine culture in the past so placed on Rocephin and vancomycin. He is a very poor historian so trying to get more details to fill out information for this dictation.He tells the nurse he has not been taking most of his medications for several days. Subjective/Events-last exam Patient is seen laying comfortably in bed this morning, no family at bedside. He reports that he feels much better today, weakness has greatly improved and not having any nausea. Urine culture grew E. coli, stopping vancomycin today, waiting on final sensitivities. Moving down to fourth floor today. Patient is doing well, has no new complaints. Review of Systems General: No Chills, No Night Sweats HEENT: No Visual Changes, No Ear Pain Pulmonary: No Dyspnea, No Cough Cardiovascular: No: Chest Pain, Palpitations Gastrointestinal: No: Nausea, Vomiting Genitourinary: No Dysuria, No Hematuria Musculoskeletal: No: neck pain, back pain Neurological: No: Weakness, Numbness Focused Exam Lactate Level 10/22/22 09:25: Lactic Acid Level 3.03*H 10/22/22 11:47: Lactic Acid Level 1.21 Objective Exam Vital Signs Vital Signs Date Time Temp Pulse Resp B/P (MAP) Pulse Ox O2 Delivery O2 Flow Rate FiO2 10/23/22 12:07 97 Room Air 10/23/22 11:44 36.1 78 18 121/74 (90) Capillary Refill : General Appearance: No Apparent Distress, WD/WN HEENT: PERRL/EOMI Neck: Non Tender, Supple Respiratory: Chest Non Tender, Normal Breath Sounds, No Respiratory Distress Cardiovascular: Regular Rate, Rhythm, No Edema, Normal Peripheral Pulses Gastrointestinal: Non Tender, Soft Rectal: Deferred Back: No Vertebral Tenderness Extremity: Normal Capillary Refill, Non Tender, No Pedal Edema Neurologic/Psychiatric: Alert, Oriented x3 Skin: Normal Color, Warm/Dry Lymphatic: No Adenopathy Results/Procedures Lab Laboratory Tests 10/23/22 04:50 Patient resulted labs reviewed. Assessment/Plan Assessment and Plan Assess & Plan/Chief Complaint Sepsis: Continue Rocephin, stopping vancomycin today UTI: Culture grew E. coli, waiting on sensitivities, stopping vancomycin, continue rocephin. Stopping IVF today, encourage PO hydration Hypertension: holding BP meds, some soft BPs with systolic in 90s overnight Hyperlipidemia: continue home dose statin Non-insulin dependent DM: SSI Noncompliance with meds Wheelchair-bound, debility Hx of stroke: continue SHELIA Garvin DO 10/24/22 0631: Subjective Subjective/Events-last exam Patient doing much better We will move down to fourth floor Hep-Lock IV fluid Maintain antibiotics urine culture pending Objective Exam General Appearance: No Apparent Distress, WD/WN, Chronically ill Respiratory: Lungs Clear, Normal Breath Sounds Cardiovascular: Regular Rate, Rhythm Assessment/Plan Assessment and Plan Assess & Plan/Chief Complaint Supportive care Await urine culture Supervisory-Addendum Brief Verification & Attestation Participated in pt care: history, MDM, physical Personally performed: exam, history, MDM, supervision of care Care discussed with: Medical Student Procedures: n/a Results interpretation: Verified all documentation Verification and Attestation of Medical Student E/M Service A medical student performed and documented this service in my presence. I rev iewed and verified all information documented by the medical student and made modifications to such information, when appropriate. I personally performed the physical exam and medical decision making. Shelia Sommer Oct 24, 2022,06:30 KEN SMALLWOOD Oct 23, 2022 12:50 SHELIA SOMMER DO Oct 24, 2022 06:31
[2022-10-23] MEDS ORDERED: inSUlin (REGULAR) HUMAN 1 UNIT/0.01 ML (CHARGE PER UNIT) SC PRN (13:00)
--- NOTE | 2022-10-23 13:40 | Physical Therapy Evaluation ---
PT Evaluation-General Medical Diagnosis Admission Date Oct 22, 2022 at 12:24 Medical Diagnosis: sepsis/UTI Onset Date: Oct 22, 2022 Therapy Diagnosis Therapy Diagnosis: debility Height/Weight Height (Feet): 6 Height (Inches): 2.00 Weight (Pounds): 160 Weight (Ounces): 4.8 Precautions Precautions/Isolations: Fall Prevention, Standard Precautions, Pressure Ulcer Referral Physician: Ros Reason for Referral: Evaluation/Treatment Medical History Pertinent Medical History: CAD, CVA, DM, GERD, HTN, Smoking Current History EMS secondary to weakness x 3 days Reviewed History: Yes Social History Home: Single Level Current Living Status: Children Entry Into Home: Ramp Prior Prior Level of Function SCALE: Activities may be completed with or without assistive devices. 9-Zlktmxixvy-jzebucw completes the activity by him/herself with no assistance from a helper. 5-Set-up or Clean-up Assistance-helper sets up or cleans up; patient completes activity. [place] assists only prior to or following the activity. 4-Supervision or Touching Assistance-helper provides verbal cues and/or touching/steadying and/or contact guard assistance as patient completes activity. Assistance may be provided throughout the activity or intermittently. 3-Partial/Moderate Assistance-helper does LESS THAN HALF the effort. [place] lifts, holds or supports trunk or limbs, but provides less than half the effort. 2-Substantial/Maximal Assistance-helper does MORE THAN HALF the effort. [place] lifts or holds trunk or limbs and provides more than half the effort. 1-Sdtbqdemw-uopnqj does ALL the effort. Patient does none of the effort to complete the activity. Or, the assistance of 2 or more helpers is required for the patient to complete the activity. If activity was not attempted, code reason: 7-Patient Refused. 9-Not Applicable-not attempted and the patient did not perform the activity before the current illness, exacerbation or injury. 10-Not Attempted due to Environmental Limitations-(lack of equipment, weather restraints, etc.). 88-Not Attempted due to Medical Conditions or Safety Concerns. Bed Mobility: 1 Transfers (B,C,W/C): 1 Gait: 9 Stairs: 9 Wheelchair Mobility: 1 Indoor Mobility (Ambulation): Not Applicalbe Stairs: Not Applicalbe Prior Devices Use: Manual wheelchair nonambulatory PLOF/dependent of 2 with transfers and sleeps in a recliner PT Evaluation-Current Subjective Patient family present answering all questions. Per family , patient is dependent assist of 2 with transfers recliner to w/c (patient sleeps in recliner) and does not like gait belts. This PT instructed patient that staff will utilize gait belt with transfers for staff and patient's safety Objective Patient Orientation: Person, Time, Situation ROM/Strength ROM Upper Extremities left elbow/wrist/hand/finger flexion contractures (severe) ROM Lower Extremities mild left knee flexion contracture/right LE WFL Strength Lower Extremities left LE 2-/5 grossly/right LE 3-/5 grossly Integumentary/Posture Bowel Incontinence: Yes Bladder Incontinence: Yes Neuromuscular (Tone, Coordination, Reflexes) severely diminished with all Sensory Vision: Functional Hearing: Functional Transfers Roll Left to Right (QC): 1 (x 2) Sit to Lying (QC): 1 (x 2) Lying to Sitting/Side of Bed(Q: 1 (x 2) Sit to Stand (QC): 88 Chair/Ylb-kd-Sydss Xfer(QC): 88 Gait Does the Patient Walk?: No and Walking Goal NOT indicated Walk 10 feet (QC): 9 Walk 50 ft with 2 Turns(QC): 9 Walk 150 ft (QC): 9 Balance Sitting Static: Poor Sitting Dynamic: Poor Assessment/Needs Patient will be seen short term by skilled PT to address functional strength and transfer training. Staff to utilize [place] Lift for safety for OOB activity. Rehab Potential: Guarded PT Short Term Goals Short Term Goals Time Frame: Oct 31, 2022 Roll Left & Right: 2 Sit to lyin Lying to sitting on side of be: 2 PT Plan Problem List Problem List: Activity Tolerance, Functional Strength, Safety, Balance, Transfer, Bed Mobility, ROM Treatment/Plan Treatment Plan: Continue Plan of Care Treatment Plan: Bed Mobility, Education, Functional Activity Curtis, Functional Strength, Safety, Therapeutic Exercise, Transfers Treatment Duration: Oct 31, 2022 Frequency: 5 times per week Estimated Hrs Per Day: .25 hour per day Time Time In: 1240 Time Out: 1257 DATE: Oct 23, 2022 Total Billed Treatment Time: 17 Total Billed Treatment 1 visit EVMod 17 min EDMUNDO HENSON PT Oct 23, 2022 13:40
[2022-10-23] MEDS ORDERED: inSUlin ASPART 1 UNIT/0.01 ML (PER UNIT) SC SCH (16:00)
[2022-10-23] MEDS: metFORMIN 500 MG TABLET PO SCH (16:10)
[2022-10-23] MEDS ORDERED: SERTRALINE 100 MG TABLET PO SCH (21:00)
[2022-10-23] MEDS ORDERED: APIXABAN 5 MG TABLET PO SCH (21:00)
[2022-10-23] MEDS: SERTRALINE 50 MG TABLET PO SCH (21:11)
[2022-10-24 03:42] VITALS: BP 112/69
[2022-10-24] MEDS: inSUlin ASPART 1 UNIT/0.01 ML (PER UNIT) SC SCH ×4 (05:12→20:49)
[2022-10-24] MEDS: THERAPEUTIC MULTIVITAMIN W/MINERALS TABLET PO SCH (05:12)
[2022-10-24 07:04] LABS: BASOPHILS % (AUTO) 1 % (0-10); EOSINOPHILS # (AUTO) 0.1 10^3/uL (0.0-0.3); EOSINOPHILS % (AUTO) 2 % (0-10); HEMATOCRIT 38 % (40-54); HEMOGLOBIN 12.7 g/dL (13.3-17.7); LYMPHOCYTES # (AUTO) 0.7 10^3/uL (1.0-4.0); LYMPHOCYTES % (AUTO) 11 % (12-44); MEAN CORPUSCULAR HEMOGLOBIN 29 pg (25-34); MEAN CORPUSCULAR HGB CONC 33 g/dL (32-36); MEAN CORPUSCULAR VOLUME 87 fL (80-99); MEAN PLATELET VOLUME 10.7 fL (9.0-12.2); MONOCYTES # (AUTO) 0.8 10^3/uL (0.0-1.0); MONOCYTES % (AUTO) 13 % (0-12); NEUTROPHILS # (AUTO) 4.2 10^3/uL (1.8-7.8); NEUTROPHILS % (AUTO) 71 % (42-75); PLATELET COUNT 190 10^3/uL (130-400)
[2022-10-24 07:25] VITALS: BP 126/78
[2022-10-24 07:33] LABS: ALBUMIN 3.1 GM/DL (3.2-4.5); BILIRUBIN,TOTAL 0.7 MG/DL (0.1-1.0); CALCIUM 7.9 MG/DL (8.5-10.1); CREATININE SERUM 0.81 MG/DL (0.60-1.30); POTASSIUM 3.5 MMOL/L (3.6-5.0); TOTAL PROTEIN 6.1 GM/DL (6.4-8.2)
--- NOTE | 2022-10-24 08:08 | Progress Note - Hospitalist ---
Subjective HPI/CC On Admission Date Seen by Provider: Oct 24, 2022 Time Seen by Provider: 11:00 Chief complaint: Sepsis from UTI HPI: This is a 77-year-old male clinic patient of [facility] who is very debilitated on a chronic basis and wheelchair-bound cared for by daughter and son who has a history of UTIs who presented to the ER with weakness and fever found to have a UTI. History of Staph epidermidis on urine culture in the past so placed on Rocephin and vancomycin. He is a very poor historian so trying to get more deta ils to fill out information for this dictation.He tells the nurse he has not been taking most of his medications for several days. Subjective/Events-last exam Wants to go home BCx with E coli so will need to maintain Rocephin IV for now Get OOB in chair today No falls Review of Systems General: Fatigue, Malaise Focused Exam Lactate Level 10/22/22 09:25: Lactic Acid Level 3.03*H 10/22/22 11:47: Lactic Acid Level 1.21 Objective Exam Vital Signs Vital Signs Date Time Temp Pulse Resp B/P (MAP) Pulse Ox O2 Delivery O2 Flow Rate FiO2 10/24/22 12:00 36.6 80 18 121/70 (87) 95 Room Air Capillary Refill : General Appearance: No Apparent Distress, WD/WN, Chronically ill Respiratory: Lungs Clear, Normal Breath Sounds Cardiovascular: Regular Rate, Rhythm Neurologic/Psychiatric: Alert, Oriented x3 Results/Procedures Lab Laboratory Tests 10/24/22 05:24 Patient resulted labs reviewed. Assessment/Plan Assessment and Plan Assess & Plan/Chief Complaint Assessment: Sepsis Bacteremia with E coli UTI acute on chronic Bedridden state Plan: IV Rocephin OOB Diagnosis/Problems Diagnosis/Problems (1) Sepsis Qualifiers: Sepsis type: sepsis due to unspecified organism Sepsis acute organ dysfunction status: unspecified Qualified Codes: A41.9 - Sepsis, unspecified organism (2) UTI (urinary tract infection) Qualifiers: Urinary tract infection type: acute cystitis Hematuria presence: without hematuria Qualified Codes: N30.00 - Acute cystitis without hematuria TK KERR DO Oct 24, 2022 08:08
[2022-10-24] MEDS: APIXABAN 5 MG TABLET PO SCH ×2 (08:41→20:49)
[2022-10-24] MEDS: DOCUSATE SODIUM 100 MG CAPSULE PO SCH ×2 (08:42→20:50)
[2022-10-24] MEDS: VITAMIN D3 25 MCG (1,000 UNITS) TABLET PO SCH (08:42)
[2022-10-24] MEDS: SENNOSIDES 8.6 MG TABLET PO SCH ×2 (08:42→20:50)
[2022-10-24] MEDS: metFORMIN 500 MG TABLET PO SCH ×2 (08:43→17:23)
[2022-10-24] MEDS: DONEPEZIL 10 MG TABLET PO SCH (08:43)
[2022-10-24] MEDS: ASPIRIN enteric coated 81MG TABLET PO SCH (08:43)
[2022-10-24] MEDS ORDERED: NON-FORMULARY MEDICATION 1 EA EA (Multivitamin 1 EACH) PO SCH (09:00)
[2022-10-24] MEDS: cefTRIAXone IV/IM 1,000 MG in NS (IVPB) 50 ML 50 ML IV SCH (11:20)
[2022-10-24 12:00] VITALS: BP 121/70
[2022-10-24 15:46] VITALS: BP 129/77
[2022-10-24 19:24] VITALS: BP 114/73
[2022-10-24] MEDS: SERTRALINE 50 MG TABLET PO SCH (20:49)
[2022-10-24 23:09] VITALS: BP 115/72
[2022-10-25] VITALS (7 sets, daily range): BP systolic 114–125; BP diastolic 72–79
[2022-10-25 05:34] LABS: BASOPHILS % (AUTO) 1 % (0-10); EOSINOPHILS # (AUTO) 0.3 10^3/uL (0.0-0.3); EOSINOPHILS % (AUTO) 4 % (0-10); HEMATOCRIT 35 % (40-54); HEMOGLOBIN 11.8 g/dL (13.3-17.7); LYMPHOCYTES % (AUTO) 14 % (12-44); MEAN CORPUSCULAR HEMOGLOBIN 29 pg (25-34); MEAN CORPUSCULAR HGB CONC 33 g/dL (32-36); MEAN CORPUSCULAR VOLUME 85 fL (80-99); MEAN PLATELET VOLUME 9.8 fL (9.0-12.2); MONOCYTES # (AUTO) 0.9 10^3/uL (0.0-1.0); MONOCYTES % (AUTO) 12 % (0-12); NEUTROPHILS # (AUTO) 4.8 10^3/uL (1.8-7.8); NEUTROPHILS % (AUTO) 68 % (42-75); PLATELET COUNT 175 10^3/uL (130-400)
[2022-10-25] MEDS: THERAPEUTIC MULTIVITAMIN W/MINERALS TABLET PO SCH (05:38)
[2022-10-25] MEDS: inSUlin ASPART 1 UNIT/0.01 ML (PER UNIT) SC SCH ×4 (05:38→20:40)
[2022-10-25 06:00] LABS: ALBUMIN 2.8 GM/DL (3.2-4.5); BILIRUBIN,TOTAL 0.5 MG/DL (0.1-1.0); CREATININE SERUM 0.76 MG/DL (0.60-1.30); POTASSIUM 3.7 MMOL/L (3.6-5.0); TOTAL PROTEIN 5.5 GM/DL (6.4-8.2)
[2022-10-25] MEDS: DONEPEZIL 10 MG TABLET PO SCH (08:55)
[2022-10-25] MEDS: ASPIRIN enteric coated 81MG TABLET PO SCH (08:55)
[2022-10-25] MEDS: DOCUSATE SODIUM 100 MG CAPSULE PO SCH ×2 (08:55→20:40)
[2022-10-25] MEDS: metFORMIN 500 MG TABLET PO SCH ×2 (08:55→17:01)
[2022-10-25] MEDS: SENNOSIDES 8.6 MG TABLET PO SCH ×2 (08:55→20:40)
[2022-10-25] MEDS: VITAMIN D3 25 MCG (1,000 UNITS) TABLET PO SCH (08:55)
[2022-10-25] MEDS: APIXABAN 5 MG TABLET PO SCH ×2 (08:55→20:40)
[2022-10-25] MEDS: cefTRIAXone IV/IM 1,000 MG in NS (IVPB) 50 ML 50 ML IV SCH (11:43)
[2022-10-25] MEDS ORDERED: RT-Ipratropium/Albuterol NEB 3 ML VIAL INH PRN (14:45)
[2022-10-25] MEDS: SERTRALINE 50 MG TABLET PO SCH (20:40)
[2022-10-26 03:24] VITALS: BP 127/74
[2022-10-26 05:41] LABS: BASOPHILS % (AUTO) 1 % (0-10); EOSINOPHILS # (AUTO) 0.3 10^3/uL (0.0-0.3); EOSINOPHILS % (AUTO) 5 % (0-10); HEMATOCRIT 35 % (40-54); HEMOGLOBIN 11.9 g/dL (13.3-17.7); LYMPHOCYTES # (AUTO) 1.3 10^3/uL (1.0-4.0); LYMPHOCYTES % (AUTO) 18 % (12-44); MEAN CORPUSCULAR HEMOGLOBIN 29 pg (25-34); MEAN CORPUSCULAR HGB CONC 34 g/dL (32-36); MEAN CORPUSCULAR VOLUME 86 fL (80-99); MEAN PLATELET VOLUME 10.1 fL (9.0-12.2); MONOCYTES # (AUTO) 0.6 10^3/uL (0.0-1.0); MONOCYTES % (AUTO) 9 % (0-12); NEUTROPHILS # (AUTO) 4.7 10^3/uL (1.8-7.8); NEUTROPHILS % (AUTO) 66 % (42-75); PLATELET COUNT 183 10^3/uL (130-400); WHITE BLOOD COUNT 7.1 10^3/uL (4.3-11.0)
[2022-10-26] MEDS: THERAPEUTIC MULTIVITAMIN W/MINERALS TABLET PO SCH (05:41)
[2022-10-26] MEDS: inSUlin ASPART 1 UNIT/0.01 ML (PER UNIT) SC SCH ×2 (05:41→11:44)
[2022-10-26 05:59] LABS: BILIRUBIN,TOTAL 0.5 MG/DL (0.1-1.0); CALCIUM 8.4 MG/DL (8.5-10.1); CREATININE SERUM 0.77 MG/DL (0.60-1.30); POTASSIUM 3.7 MMOL/L (3.6-5.0); TOTAL PROTEIN 5.8 GM/DL (6.4-8.2)
[2022-10-26 08:00] VITALS: BP 144/84
[2022-10-26] MEDS: ASPIRIN enteric coated 81MG TABLET PO SCH (08:15)
[2022-10-26] MEDS: DOCUSATE SODIUM 100 MG CAPSULE PO SCH (08:15)
[2022-10-26] MEDS: APIXABAN 5 MG TABLET PO SCH (08:15)
[2022-10-26] MEDS: VITAMIN D3 25 MCG (1,000 UNITS) TABLET PO SCH (08:15)
[2022-10-26] MEDS: metFORMIN 500 MG TABLET PO SCH (08:15)
[2022-10-26] MEDS: SENNOSIDES 8.6 MG TABLET PO SCH (08:15)
[2022-10-26] MEDS: DONEPEZIL 10 MG TABLET PO SCH (08:18)
[2022-10-26] MEDS: cefTRIAXone IV/IM 1,000 MG in NS (IVPB) 50 ML 50 ML IV SCH (11:45)
--- NOTE | 2022-10-26 11:48 | Physical Therapy Daily Note ---
PT Daily Note-Current Subjective Patient initially agrees to PT. Family present Pain Section J - Health Conditions 1. Rarely or not at all 2. Occasionally 3. Frequently 4. Almost constantly 8. Unable to answer Pain Effect on Sleep: 1 Pain Interference with Therapy: 1 Pain Interference w/Day-to-Day: 1 Mental Status Patient Orientation: Person, Place, Time Transfers SCALE: Activities may be completed with or without assistive devices. 0-Gzmedmqvfr-jyavphn completes the activity by him/herself with no assistance from a helper. 5-Set-up or Clean-up Assistance-helper sets up or cleans up; patient completes activity. [place] assists only prior to or following the activity. 4-Supervision or Touching Assistance-helper provides verbal cues and/or touching/steadying and/or contact guard assistance as patient completes activity. Assistance may be provided throughout the activity or intermittently. 3-Partial/Moderate Assistance-helper does LESS THAN HALF the effort. [place] lifts, holds or supports trunk or limbs, but provides less than half the effort. 2-Substantial/Maximal Assistance-helper does MORE THAN HALF the effort. [place] lifts or holds trunk or limbs and provides more than half the effort. 2-Oxnowketl-loaspp does ALL the effort. Patient does none of the effort to complete the activity. Or, the assistance of 2 or more helpers is required for the patient to complete the activity. If activity was not attempted, code reason: 7-Patient Refused. 9-Not Applicable-not attempted and the patient did not perform the activity before the current illness, exacerbation or injury. 10-Not Attempted due to Environmental Limitations-(lack of equipment, weather restraints, etc.). 88-Not Attempted due to Medical Conditions or Safety Concerns. Roll Left & Right (QC): 2 Sit to Lying (QC): 2 Lying to Sitting/Side of Bed(Q: 2 Sit to Stand (QC): 1 (attempted x 3 sets with patient refusing to perform and throwing himself back to bed.) Gait Training Does the Patient Walk?: No and Walking Goal NOT indicated Assessment Patient sat EOB with max assist to attain and SBA to maintain. Patient became highly agitated during sit to stand transfer training resulting in throwing himself back onto the bed and refusing to perform OOB activity. Family present. PT Short Term Goals Short Term Goals Time Frame: Oct 31, 2022 Roll Left & Right: 2 Sit to lyin Lying to sitting on side of be: 2 PT Plan Treatment/Plan Treatment Plan: Continue Plan of Care Treatment Plan: Bed Mobility, Education, Functional Activity Curtis, Functional Strength, Safety, Therapeutic Exercise, Transfers Treatment Duration: Oct 31, 2022 Frequency: 5 times per week Estimated Hrs Per Day: .25 hour per day Time Time In: 1120 Time Out: 1130 DATE: Oct 26, 2022 Total Billed Treatment Time: 10 Total Billed Treatment 1 visit FA 10 min EDMUNDO HENSON PT Oct 26, 2022 11:48
[2022-10-26 12:00] VITALS: BP 139/79
--- NOTE | 2022-10-26 12:03 | Occupational Therapy Eval ---
OT Evaluation-General/PLF Medical Diagnosis Admission Date Oct 22, 2022 at 12:24 Medical Diagnosis: sepsis/UTI Onset Date: Oct 22, 2022 Therapy Diagnosis Therapy Diagnosis: weakness Height/Weight Height (Feet): 6 Height (Inches): 2.00 Weight (Pounds): 160 Weight (Ounces): 4.8 Precautions Precautions/Isolations: Fall Prevention, Standard Precautions Safety Interventions: Bed Exit Alarm Referral Physician: Ros Referral Reason: Self Care, Evaluation/Treatment Medical History Pertinent Medical History: CAD, CVA, DM, GERD, HTN, Smoking Additional Medical History 77-year-old male clinic patient of [facility] who is very debilitated on a chronic basis and wheelchair-bound, cared for by live-in daughter and a son, who has a history of UTIs who presented to the ER with weakness and fever. Found to have a UTI. History of Staph epidermidis on urine culture in the past so placed on Rocephin and vancomycin. He is a very poor historian. He tells the nurse he has not been taking most of his medications for several days. Current History Patient performs SBA bed mobility however refuses after one attempt to stand to continue further, Patient will not adhere to instruction or safety protocol for bed mobility, recliner/bed transfer or standing. Plunges self back into bed and refuses further intervention. OT calms patient and redirects to intervene w/ patient needs and anup is fairly cooperative Social History Home: Single Level Current Living Status: Children Entry Into Home: Ramp ADL-Prior Level of Function SCALE: Activities may be completed with or without assistive devices. 0-Pzggjpluxa-hwozgnj completes the activity by him/herself with no assistance from a helper. 5-Set-up or Clean-up Assistance-helper sets up or cleans up; patient completes activity. [place] assists only prior to or following the activity. 4-Supervision or Touching Assistance-helper provides verbal cues and/or touching/steadying and/or contact guard assistance as patient completes activity. Assistance may be provided throughout the activity or intermittently. 3-Partial/Moderate Assistance-helper does LESS THAN HALF the effort. [place] lifts, holds or supports trunk or limbs, but provides less than half the effort. 2-Substantial/Maximal Assistance-helper does MORE THAN HALF the effort. [place] lifts or holds trunk or limbs and provides more than half the effort. 9-Gulcbcdbw-ikuvnh does ALL the effort. Patient does none of the effort to complete the activity. Or, the assistance of 2 or more helpers is required for the patient to complete the activity. If activity was not attempted, code reason: 7-Patient Refused. 9-Not Applicable-not attempted and the patient did not perform the activity before the current illness, exacerbation or injury. 10-Not Attempted due to Environmental Limitations-(lack of equipment, weather restraints, etc.). 88-Not Attempted due to Medical Conditions or Safety Concerns. ADL PLOF Comments Requires 50% assist w/ bathing and dressing, set up for grooming an feeding tasks, transfer performed w/ assistance only in/out of recliner/WC, bed, commode Self Care: Needed Some Help Functional Cognition: Needed Some Help DME/Equipment: Bath Chair, Grab Bars, Shower Drive Self: No OT Current Status Subjective Preferred name MARIA DE JESUS Pain Numeric Pain Scale: 0-No Pain (however says OUCH when prompted to move) Mental Status/Objective Patient Orientation: Person, Place Current Dentures/Partials: Yes Hand Dominance: Right Upper Extremity ROM Left hand contracture, elbow and shoulder, R UE WFLS Upper Extremity Coordination IMPAIRED Upper Extremity Sensation IMPAIRED Upper Extremity Strength RUE +3/5, LUE -2/5 ADL-Treatment Eating (QC): 5 Oral Hygiene (QC): 4 Shower/Bathe Self (QC): 7 Upper Body Dressing (QC): 3 Lower Body Dressing (QC): 1 On/Off Footwear (QC): 1 Toileting Hygiene (QC): 1 OT provided oral/ hair (shampoo cap) and face grooming supplies set up at bedside. Education OT Patient Education: Correct positioning, Disease process, Exercise program, Instructions to caregiver, Modified ADL techniques, Progress toward Goal/Update tx plan, Purpose of tx/functional activities, Reviewed precautions, Rehab process, Safety issues, Transfer techniques, Use of adapted equipment Teaching Recipient: Patient Teaching Methods: Demonstration, Discussion Response to Teaching: Verbalize Understanding, Reinforcement Needed OT Trim Crew Supervisor Goals Senior Care Goals Time Frame: Oct 30, 2022 Eating (QC): 5 Oral Hygiene (QC): 5 Toileting Hygiene (QC): 4 Shower/Bathe Self (QC): 3 Upper Body Dressing (QC): 4 Lower Body Dressing (QC): 3 On/Off Footwear (QC): 3 1=Demonstrate adherence to instructed precautions during ADL tasks. 2=Patient will verbalize/demonstrate understanding of assistive devices/modifications for ADL. 3=Patient will improve strength/tolerance for activity to enable patient to perform ADL's. OT Education/Plan Problem List/Assessment Assessment: Decreased Activ Tolerance, Decreased Safety Aware, Decreased UE Strength, Dependent Transfers, Impaired Bed Mobility, Impaired Coordination, Impaired Funct Balance, Impaired Self-Care Skills, Restricted Funct UE ROM Discharge Recommendations Plan/Recommendations: Continue POC Therapy Discharge Recommendati: Post Acute OT Treatment Plan/Plan of Care Treatment,Training & Education: Yes Patient would benefit from OT for education, treatment and training to promote independence in ADL's, mobility, safety and/or upper extremity function for ADL's. Plan of Care: ADL Retraining, Caregiver Training, Concurrent Therapy, Functional Mobility, Group Exercise/Act as Ind, UE Funct Exercise/Act, UE Neuromus Re-Ed/Coord Treatment Duration: Oct 30, 2022 Frequency: 3 times per week (3-5 times per week) Estimated Hrs Per Day: .25 hour per day Agreement: Yes Rehab Potential: Guarded Time Start Time: 11:20 Stop Time: 11:40 DATE: Oct 26, 2022 Total Time Billed (hr/min): 20 Billed Treatment Time EVM 20 min STEVEN COOPER OT Oct 26, 2022 12:03
[2022-10-26] MEDS ORDERED: CEFD300C3 PO (13:18)
--- NOTE | 2022-10-26 13:21 | Discharge Summary ---
Discharge [facility] Reconcile Patient Problems Problems Reviewed?: Yes Discharge Medications New, Converted or Re-Newed RX: Transmitted to Pharmacy New Medications: Cefdinir (Cefdinir) 300 Mg Capsule 300 MG PO BID for 2 Days, #4 CAP 0 Refills Continued Medications: Apixaban (Eliquis) 5 Mg Tablet 5 MG PO BID, TAB Aspirin (Aspirin EC) 81 Mg Tablet.dr 81 MG PO DAILY, TAB Atorvastatin Calcium (Atorvastatin Calcium) 40 Mg Tablet 20 MG PO HS, TAB TAKES OF A 40MG TAB Cholecalciferol (Vitamin D3) (Vitamin D3) 25 Mcg (1000 Unit) Tablet 25 MCG PO DAILY, TAB Donepezil HCl (Donepezil HCl) 10 Mg Tablet 5 MG PO DAILY, TAB TAKES OF A 10MG TAB Lisinopril (Lisinopril) 5 Mg Tablet 2.5 MG PO DAILY, TAB TAKES OF A 5MG TAB Metformin HCl (Metformin HCl) 500 Mg Tablet 500 MG PO BID, TAB Multivitamin (Multivitamin) 1 Each Tablet 1 EACH PO DAILY, TAB Sertraline HCl (Sertraline HCl) 100 Mg Tablet 50 MG PO HS, TAB TAKES OF A 100MG TAB Patient Instructions Goal/Follow Up Appt: f/up with primary w/in 2 weeks Return to The Hospital For: New fever, new or worsening symptoms Activity & Diet Discharge Diet: No Restrictions Activity as Tolerated: Yes MICHELLE COOK MD Oct 26, 2022 13:21
--- NOTE | 2022-10-26 16:15 | Discharge Summary ---
Discharge Summary Hospital Course Hospital Course Date of Admission: Oct 22, 2022 at 12:24 Admission Diagnosis : Family Physician/Provider: Lucian Rust MD Date of Discharge: 10/26/22 Discharge Diagnosis: [ ] Hospital Course: [ ] Labs and Pending Lab Test: Laboratory Tests 10/25/22 20:25: Glucometer 230H 10/26/22 05:10: Glucometer 221H 10/26/22 05:15: White Blood Count 7.1, Red Blood Count 4.10L, Hemoglobin 11.9L, Hematocrit 35L, Mean Corpuscular Volume 86, Mean Corpuscular Hemoglobin 29, Mean Corpuscular Hemoglobin Concent 34, Red Cell Distribution Width 13.7, Platelet Count 183, Mean Platelet Volume 10.1, Immature Granulocyte % (Auto) 2, Neutrophils (%) (Auto) 66, Lymphocytes (%) (Auto) 18, Monocytes (%) (Auto) 9, Eosinophils (%) (Auto) 5, Basophils (%) (Auto) 1, Neutrophils # (Auto) 4.7, Lymphocytes # (Auto) 1.3, Monocytes # (Auto) 0.6, Eosinophils # (Auto) 0.3, Basophils # (Auto) 0.0, Immature Granulocyte # (Auto) 0.1, Sodium Level 137, Potassium Level 3.7, Chloride Level 104, Carbon Dioxide Level 24, Anion Gap 9, Blood Urea Nitrogen 15, Creatinine 0.77, Estimat Glomerular Filtration Rate 92, BUN/Creatinine Ratio 19, Glucose Level 235H, Calcium Level 8.4L, Corrected Calcium 9.2, Total Bilirubin 0.5, Aspartate Amino Transf (AST/SGOT) 29, Alanine Aminotransferase (ALT/SGPT) 22, Alkaline Phosphatase 140H, Total Protein 5.8L, Albumin 3.0L 10/26/22 10:54: Glucometer 335H Microbiology 10/22/22 Urine Culture - Final, Complete Escherichia coli 10/22/22 Blood Culture - Preliminary, Resulted Home Meds Active Cefdinir 300 Mg Capsule 300 Mg PO BID 2 Days Reported Lisinopril 5 Mg Tablet 2.5 Mg PO DAILY TAKES OF A 5MG TAB Metformin HCl 500 Mg Tablet 500 Mg PO BID Eliquis (Apixaban) 5 Mg Tablet 5 Mg PO BID Vitamin D3 (Cholecalciferol (Vitamin D3)) 25 Mcg (1000 Unit) Tablet 25 Mcg PO DAILY Multivitamin 1 Each Tablet 1 Each PO DAILY Donepezil HCl 10 Mg Tablet 5 Mg PO DAILY TAKES OF A 10MG TAB Atorvastatin Calcium 40 Mg Tablet 20 Mg PO HS TAKES OF A 40MG TAB Sertraline HCl 100 Mg Tablet 50 Mg PO HS TAKES OF A 100MG TAB Aspirin EC (Aspirin) 81 Mg Tablet.dr 81 Mg PO DAILY Discharge Physical Examination Allergies: Coded Allergies: Influenza Virus Vaccines (Verified Allergy, Unknown, 05/23/09) Uncoded Allergies: FLU SHOT (Allergy, Mild, 05/22/09) MICHELLE COOK MD Oct 26, 2022 16:15
== END 2022-10-26 16:00 | disposition home or self-care (01) | DRG 872 ==
LOC: EDUNIT# 09:06 → ER 09:07 → CSD 12:24 → 4TH 10-23 13:12
PROVIDERS: ADMIT Internal Medicine; ATTEND Family Medicine
DX: A41.51 Sepsis due to Escherichia coli [E. coli] (principal); N30.00 Acute cystitis without hematuria; Z20.822 Contact with and (suspected) exposure to COVID-19; I10 Essential (primary) hypertension; Z66 Do not resuscitate; K21.9 Gastro-esophageal reflux disease without esophagitis; Z79.82 Long term (current) use of aspirin; Z79.84 Long term (current) use of oral hypoglycemic drugs; Z79.899 Other long term (current) drug therapy; Z87.891 Personal history of nicotine dependence; F32.A Depression, unspecified; E78.5 Hyperlipidemia, unspecified; E11.65 Type 2 diabetes mellitus with hyperglycemia; Z91.148 Patient's other noncompliance with medication regimen for other reason; Z99.3 Dependence on wheelchair; I49.9 Cardiac arrhythmia, unspecified; Z86.73 Personal history of transient ischemic attack (TIA), and cerebral infarction without residual deficits; Z79.01 Long term (current) use of anticoagulants; R53.81 Other malaise
CPT/HCPCS: 36415; 51701; 71045; 80053; 81000; 82947; 83605; 85007; 85025; 85027; 85610; 85730; 87040; 87077; 87088; 87186; 87636; 94760